=== PATIENT | male | born 1950 | race Caucasian/White ===

== ENCOUNTER 2020-03-02 14:50 | Inpatient (IN) | payer MEDICARE ==
[~2020-03-02] VITALS: Ht 190.5 cm; Wt 78.1 kg
--- NOTE | 2020-03-02 15:37 | EKG ---
[facility] [address] [place] [address] Test Date: 2020-03-02 Test Time: 14:53:24 Pat Name: FABIANO HELLER Department: Room: Gender: Law Researcher: [place] : 1950 Requested By: MARY MCKEON Order Number: [id number] Reading MD: Zenon Macdonald MD Measurements Intervals Osteen Rate: 121 P: 32 NM: 140 QRS: 18 QRSD: 84 T: 47 QT: 306 QTc: 437 Interpretive Statements SINUS TACHYCARDIA PAC'S Electronically Signed On 03-27-2020 11:34:12 CDT by Zenon Macdonald MD
[2020-03-02 15:41] LABS: BASO % 0 % (0-3); EOS % 0 % (0-3); HEMATOCRIT 31.3 % (39.0-53.0); HEMOGLOBIN 9.8 g/dL (13.0-17.5); LYMPH # 0.4 x10^3/uL (1.0-4.8); LYMPH % 4 % (24-48); MEAN CORPUSCULAR HEMOGLOBIN 22 pg (25-35); MEAN CORPUSCULAR HGB CONC 31 g/dL (31-37); MEAN CORPUSCULAR VOLUME 72 fL (79-100); MONO # 1.3 x10^3/uL (0.0-1.1); MONO % 11 % (0-9); NEUT # 10.4 x10^3/uL (1.8-7.7); NEUT % 85 % (31-73); PLATELET COUNT 391 x10^3/uL (140-400); RED BLOOD COUNT 4.37 x10^6/uL (4.30-5.70); RED CELL DISTRIBUTION WIDTH 30.9 % (11.5-14.5); WHITE BLOOD COUNT 12.1 x10^3/uL (4.0-11.0)
[2020-03-02 15:51] LABS: PROTHROMBIN TIME PATIENT 16.5 SEC (11.7-14.0)
[2020-03-02 15:52] LABS: CALCIUM 7.1 mg/dL (8.5-10.1); CREATININE 0.9 mg/dL (0.7-1.3); GFR 83.2; POTASSIUM 4.4 mmol/L (3.5-5.1)
[2020-03-02 15:57] LABS: ALBUMIN 1.5 g/dL (3.4-5.0); ALBUMIN/GLOBULIN RATIO 0.4 (1.0-1.7); MAGNESIUM 2.1 mg/dL (1.8-2.4); TOTAL BILIRUBIN 0.6 mg/dL (0.2-1.0); TOTAL PROTEIN 5.4 g/dL (6.4-8.2)
--- NOTE | 2020-03-02 16:02 | RAD ---
CHEST AP ONLY History: Reason: chest pain / Spl. Instructions: / History: Comparison: None. Findings: No consolidation or pleural effusion. Normal heart size. No pneumothorax. Prior granulomatous disease within the chest. Impression: 1. No acute cardiopulmonary process. Electronically signed by: Jose Garcia DO (03/02/2020 3:59 PM) [id number]
--- NOTE | 2020-03-02 16:42 | PHYS DOC ---
Past Medical History Past Medical History: Anemia, Other Additional Past Medical Histor: PROSTATE CANCER, LOW IRON Past Surgical History: No Surgical History Smoking Status: Former Smoker Alcohol Use: Rarely General Adult EDM: Chief Complaint: FATIGUE HPI: HPI: Patient is a 69 year old male who presents to the emergency department via EMS with complaints of fatigue and weakness that has been progressively worse over about the last month. He states he was at his primary care doctor's office for a checkup when the doctor suggested that he go to the emergency room by ambulance for possible blood transfusion. The patient denies any abdominal pain, chest pain, palpitations, fever, cough, shortness of breath, vision changes, dizziness, headache, numbness, tingling, or decreased sensation. He reports that his lower extremities have been swelling during the day for the last week. He denies any cardiac history. Patient states that for the last 3 weeks he has had nausea and vomiting. He reports that his emesis is brown- colored and he is not able to keep food down. He denies any blood in his stool. He currently denies any pain. Review of Systems: Review of Systems: Constitutional: Denies fever or chills. [] Eyes: Denies change in visual acuity. [] HENT: Denies nasal congestion or sore throat. [] Respiratory: Denies cough or shortness of breath. [] Cardiovascular: Denies chest pain; see HPI GI: See HPI : Denies dysuria, hematuria, or increased urinary frequency. [] Musculoskeletal: Denies back pain or joint pain. [] Integument: Denies rash. [] Neurologic: Denies headache, focal weakness or sensory changes. [] Lymphatic: Denies swollen glands. [] Psychiatric: Denies depression or anxiety. [] Heart Score: Risk Factors: Risk Factors: DM, Current or recent (<one month) smoker, HTN, HLP, family history of CAD, obesity. Risk Scores: Score 0 - 3: 2.5% MACE over next 6 weeks - Discharge Home Score 4 - 6: 20.3% MACE over next 6 weeks - Admit for Clinical Observation Score 7 - 10: 72.7% MACE over next 6 weeks - Early Invasive Strategies Allergies: Allergies: Allergies Coded Allergies Type Severity Reaction Last Updated Verified aspirin Allergy Severe "SWELLING" 03/02/20 Yes Physical Exam: PE: Constitutional: Well developed, well nourished, no acute distress, non-toxic appearance. [] HENT: Normocephalic, atraumatic, bilateral external ears normal, oropharynx dry, nose normal. [] Eyes: PERRLA, EOMI, conjunctiva normal, no discharge. [] Neck: Normal range of motion, no stridor. [] Cardiovascular:Heart rate regular rhythm, no murmur [] Lungs & Thorax: Bilateral breath sounds clear to auscultation,Respirations even and unlabored, no retractions, no respiratory distress [] Abdomen: Bowel sounds normal, soft, no tenderness, no rebound tenderness, no gua rding, no masses, no pulsatile masses. [] Skin: Warm, dry, no erythema, no rash, pale [] Back: No tenderness Extremities: BLE: No tenderness, no cyanosis, no clubbing, ROM intact, 2+ edema bilaterally, no erythema, no warmth, no drainage Neurologic: Alert and oriented X 3, normal motor function, normal sensory f unction, no focal deficits noted. [] Psychologic: Affect normal, judgement normal, mood normal. [] Current Patient Data: Labs: Laboratory Tests Test 03/02/20 15:07 White Blood Count 12.1 x10^3/uL (4.0-11.0) H Red Blood Count 4.37 x10^6/uL (4.30-5.70) Hemoglobin 9.8 g/dL (13.0-17.5) L Hematocrit 31.3 % (39.0-53.0) L Mean Corpuscular Volume 72 fL (79-100) L Mean Corpuscular Hemoglobin 22 pg (25-35) L Mean Corpuscular Hemoglobin Concent 31 g/dL (31-37) Red Cell Distribution Width 30.9 % (11.5-14.5) H Platelet Count 391 x10^3/uL (140-400) Neutrophils (%) (Auto) 85 % (31-73) H Lymphocytes (%) (Auto) 4 % (24-48) L Monocytes (%) (Auto) 11 % (0-9) H Eosinophils (%) (Auto) 0 % (0-3) Basophils (%) (Auto) 0 % (0-3) Neutrophils # (Auto) 10.4 x10^3/uL (1.8-7.7) H Lymphocytes # (Auto) 0.4 x10^3/uL (1.0-4.8) L Monocytes # (Auto) 1.3 x10^3/uL (0.0-1.1) H Eosinophils # (Auto) 0.0 x10^3/uL (0.0-0.7) Basophils # (Auto) 0.0 x10^3/uL (0.0-0.2) Platelet Estimate Pending Prothrombin Time 16.5 SEC (11.7-14.0) H Prothrombin Time INR 1.4 (0.8-1.1) H Activated Partial Thromboplast Time 36 SEC (24-38) Sodium Level 130 mmol/L (136-145) L Potassium Level 4.4 mmol/L (3.5-5.1) Chloride Level 99 mmol/L (98-107) Carbon Dioxide Level 21 mmol/L (21-32) Anion Gap 10 (6-14) Blood Urea Nitrogen 33 mg/dL (8-26) H Creatinine 0.9 mg/dL (0.7-1.3) Estimated GFR (Cockcroft-Gault) 83.2 BUN/Creatinine Ratio 37 (6-20) H Glucose Level 90 mg/dL (70-99) Calcium Level 7.1 mg/dL (8.5-10.1) L Magnesium Level 2.1 mg/dL (1.8-2.4) Total Bilirubin 0.6 mg/dL (0.2-1.0) Aspartate Amino Transferase (AST) 30 U/L (15-37) Alanine Aminotransferase (ALT) 25 U/L (16-63) Alkaline Phosphatase 157 U/L (46-116) H Troponin I Quantitative 0.017 ng/mL (0.000-0.055) LM-Fdd-J-Type Natriuretic Peptide 350 pg/mL (0-124) H Total Protein 5.4 g/dL (6.4-8.2) L Albumin 1.5 g/dL (3.4-5.0) L Albumin/Globulin Ratio 0.4 (1.0-1.7) L Lipase 90 U/L (73-393) Laboratory Tests 03/02/20 15:07 Laboratory Tests 03/02/20 15:07 Vital Signs: Vital Signs Date Time Temp Pulse Resp B/P (MAP) Pulse Ox O2 Delivery O2 Flow Rate FiO2 03/02/20 16:00 118 20 100/79 (86) 96 Room Air 03/02/20 14:53 98.0 98.0 EKG: EK-sinus tachycardia rate 121, no STEMI, read by Dr. De Anda [] Radiology/Procedures: Radiology/Procedures: PROCEDURE: CHEST AP ONLY CHEST AP ONLY History: Reason: chest pain / Spl. Instructions: / History: Comparison: None. Findings: No consolidation or pleural effusion. Normal heart size. No pneumothorax. Prior granulomatous disease within the chest. Impression: 1. No acute cardiopulmonary process.[] PROCEDURE: CT ABD PELV W/ IV CONTRST ONLY EXAM: CT Abdomen and Pelvis with IV contrast CLINICAL HISTORY: Nausea/vomiting. COMPARISON: none TECHNIQUE: Helical CT of the abdomen and pelvis was performed following the administration of IV contrast. Axial, coronal and sagittal reformatted images were generated. ---PQRS compliance statement - One or more of the following individualized dose reduction techniques were utilized for this study: 1. Automated exposure control 2. Adjustment of the mA and/or kV according to patient size 3. Use of iterative reconstruction technique--- FINDINGS: Lower chest: Trace right pleural effusion. Linear opacities right greater than left lower lobes likely scarring/atelectasis. Trace pericardial effusion. Abdomen and pelvis: Liver and biliary system: Diffuse hepatic hypoattenuation likely fatty liver. No definite liver lesion is convincingly seen. Gallbladder is contracted. Small gallstone is seen within the gallbladder. No biliary duct dilatation. Spleen: Unremarkable Pancreas: Unremarkable Adrenal glands: Unremarkable Kidneys: Symmetric nephrograms. No focal renal lesion. No hydronephrosis. No hydroureter. Lymph nodes/retroperitoneum: Prominent right upper quadrant lymph nodes are seen, for example a periportal lymph node measures 8 mm short axis. In addition prominent mesenteric lymph nodes are also seen including several right mesenteric lymph nodes. Vessels: Aorta is normal in caliber. Intermittent atherosclerotic calcifications are seen. Bowel/Peritoneal cavity: There is diffuse dilation of small bowel loops (measuring up to approximately 4.3 cm) to the level of a large fungating right ascending colon and cecal mass measuring approximately 10.3 x 9.2 x 10.5 cm (AP by transverse by craniocaudal). Of note, this mass abuts the duodenum as well as the inferior margin of the right hepatic lobe and anterior margin of the right kidney with effacement of the associated fat planes. In addition the appendix is distended measuring 1.3 cm with mild infiltration of the base. The majority of infiltration however is seen about the colonic mass described above. Trace free pelvic fluid. Abdominal wall: Unremarkable Bladder: Unremarkable Bones: Degenerative changes of the spine are seen. IMPRESSION: 1. Small bowel dilatation/obstruction to the level of a 10.5 cm colonic mass. Colonic mass abuts the right hepatic lobe inferior margin as well as the duodenum and anterior right kidney (extending through or deforming Gerota's fascia), suspicious for primary colon cancer. Prominent associated lymph nodes are seen, possibly metastatic. Otherwise no abdominal or pelvic lymphadenopathy. 2. The appendix is dilated with infiltration mostly at the base. Although this may secondary dilation from obstruction from the colonic mass, acute appendicitis cannot be excluded but is felt to be less likely. 3. Hepatic hypoattenuation likely fatty liver. 4. Small gallstone is seen within the gallbladder Course & Med Decision Making: Course & Med Decision Making Pertinent Labs and Imaging studies reviewed. (See chart for details) [id number]-spoke with Dr. Lam who is the admitting physician, and care was assumed following discussion of patient. Will admit patient as observation status for nausea, vomiting, fatigue, hypercalcemia, and anemia. We will give patient 40 mg of IV Protonix and order vitamin B12 and TSH levels per Dr. Lam Patient's vital signs stable with tachycardic heart rate. Patient remains afebrile, appears nontoxic, respirations even and unlabored. Patient will be admitted to the tele floor. Patient's case and plan of care also discussed with 1903- Per Dr. Ceron patient has a large colonic mass with a small bowel obstruction and a distended appendix will notify admitting physician Dr. Lam. 1919- notified of additional CT findings will notify Dr. Jernigan for general surgery and consult gastroenterology. 1929-I spoke with Dr. Gordon and advised of the abnormal CT findings. Patient will be n.p.o. according to admit orders, [facility] Dragon Disclaimer: Dragon Disclaimer: This electronic medical record was generated, in whole or in part, using a voice recognition dictation system. Departure Departure Impression: Primary Impression: Colonic mass Additional Impressions: Nausea & vomiting Qualified Codes: R11.2 - Nausea with vomiting, unspecified Fatigue Qualified Codes: R53.83 - Other fatigue Hypocalcemia Anemia Qualified Codes: D64.9 - Anemia, unspecified SBO (small bowel obstruction) Disposition: 09 ADMITTED INPATIENT Admitting Physician: TAMERA Hollingsworth) Condition: STABLE Justicifation of Admission Dx: Justifications for Admission: Justification of Admission Dx: Yes Comments: bowel obstruction MARY MCKEON SENIOR HYDROGEOLOGIST Mar 02, 2020 16:42
[2020-03-02] MEDS ORDERED: IV NORMAL SALINE 1000ML BAG 1,000 ML IV ONE ×2 (16:45→18:45)
[2020-03-02 17:03] LABS: % BANDS 17 % (0-9); % LYMPHS 2 % (24-48); % MONOS 3 % (0-10); % SEGS 78 % (35-66)
[2020-03-02 17:04] LABS: ANISOCYTOSIS MARKED; HYPOCHROMIA MOD; MICROCYTOSIS MOD; PLT ESTIMATE ADEQUATE (ADEQUATE)
[2020-03-02] MEDS ORDERED: CALCIUM GLUCONATE 1,000 MG/10 ML VIAL. IVP ONE (18:15)
[2020-03-02 18:18] LABS: BILIRUBIN,URINE LARGE (NEG); CLARITY,URINE CLEAR; NITRITE,URINE NEGATIVE (NEG); PH,URINE 5.5 (<5.0-8.0); PROTEIN,URINE NEGATIVE (NEG-TRACE)
[2020-03-02 18:22] LABS: COLOR,URINE YELLOW
[2020-03-02 18:25] LABS: HYALINE CASTS, URINE MODERATE /HPF
[2020-03-02 18:26] LABS: BACTERIA,URINE 0 /HPF (0-FEW); RBC,URINE 0 /HPF (0-2)
[2020-03-02] MEDS ORDERED: IOHEXOL 300 MG/ML 100ML VIAL. IV ONE (18:30)
[2020-03-02] MEDS ORDERED: PANTOPRAZOLE IV PUSH 40 MG VIAL. IVP ONE (18:45)
--- NOTE | 2020-03-02 19:08 | RAD ---
EXAM: CT Abdomen and Pelvis with IV contrast CLINICAL HISTORY: Nausea/vomiting. COMPARISON: none TECHNIQUE: Helical CT of the abdomen and pelvis was performed following the administration of IV contrast. Axial, coronal and sagittal reformatted images were generated. ---PQRS compliance statement - One or more of the following individualized dose reduction techniques were utilized for this study: 1. Automated exposure control 2. Adjustment of the mA and/or kV according to patient size 3. Use of iterative reconstruction technique--- FINDINGS: Lower chest: Trace right pleural effusion. Linear opacities right greater than left lower lobes likely scarring/atelectasis. Trace pericardial effusion. Abdomen and pelvis: Liver and biliary system: Diffuse hepatic hypoattenuation likely fatty liver. No definite liver lesion is convincingly seen. Gallbladder is contracted. Small gallstone is seen within the gallbladder. No biliary duct dilatation. Spleen: Unremarkable Pancreas: Unremarkable Adrenal glands: Unremarkable Kidneys: Symmetric nephrograms. No focal renal lesion. No hydronephrosis. No hydroureter. Lymph nodes/retroperitoneum: Prominent right upper quadrant lymph nodes are seen, for example a periportal lymph node measures 8 mm short axis. In addition prominent mesenteric lymph nodes are also seen including several right mesenteric lymph nodes. Vessels: Aorta is normal in caliber. Intermittent atherosclerotic calcifications are seen. Bowel/Peritoneal cavity: There is diffuse dilation of small bowel loops (measuring up to approximately 4.3 cm) to the level of a large fungating right ascending colon and cecal mass measuring approximately 10.3 x 9.2 x 10.5 cm (AP by transverse by craniocaudal). Of note, this mass abuts the duodenum as well as the inferior margin of the right hepatic lobe and anterior margin of the right kidney with effacement of the associated fat planes. In addition the appendix is distended measuring 1.3 cm with mild infiltration of the base. The majority of infiltration however is seen about the colonic mass described above. Trace free pelvic fluid. Abdominal wall: Unremarkable Bladder: Unremarkable Bones: Degenerative changes of the spine are seen. IMPRESSION: 1. Small bowel dilatation/obstruction to the level of a 10.5 cm colonic mass. Colonic mass abuts the right hepatic lobe inferior margin as well as the duodenum and anterior right kidney (extending through or deforming Gerota's fascia), suspicious for primary colon cancer. Prominent associated lymph nodes are seen, possibly metastatic. Otherwise no abdominal or pelvic lymphadenopathy. 2. The appendix is dilated with infiltration mostly at the base. Although this may secondary dilation from obstruction from the colonic mass, acute appendicitis cannot be excluded but is felt to be less likely. 3. Hepatic hypoattenuation likely fatty liver. 4. Small gallstone is seen within the gallbladder Findings discussed with MARY MCKEON at 03/02/2020 7:04 PM. FOR INTERNAL CODING PURPOSES RESULT CODE: (C) Electronically signed by: Derrick Ceron MD (03/02/2020 7:05 PM) NARCISO
[2020-03-02 20:47] VITALS: BP 128/85
--- NOTE | 2020-03-02 20:59 | PDOC1 ---
History and Physical Date of Admission Date of Admission DATE: 03/02/20 TIME: 20:31 Identification/Chief Complaint Chief Complaint vomiting, nausea, fatigue Source Source: Chart review, Patient History of Present Illness History of Present Illness 69 year old CM hx of prostate cancer s/p radiation, HTN now off meds who presents with vomiting fatigue diarrhea weight loss and decreased appetite for 1 month. patient had labs drawn as outpatient and called by PCP to go to the hospital for a blood transfusion. in ED patient found to have hb of 9.8. na 130. noted to be tachy wit hHR 110. patient lives with 100 year old mom. no family hx of any GI cancers Ct abdomen in ED revealed: 1. Small bowel dilatation/obstruction to the level of a 10.5 cm colonic mass. Colonic mass abuts the right hepatic lobe inferior margin as well as the duodenum and anterior right kidney (extending through or deforming Gerota's fascia), suspicious for primary colon cancer. Prominent associated lymph nodes are seen, possibly metastatic. Otherwise no abdominal or pelvic lymphadenopathy. 2. The appendix is dilated with infiltration mostly at the base. Although this may secondary dilation from obstruction from the colonic mass, acute appendicitis cannot be excluded but is felt to be less likely. 3. Hepatic hypoattenuation likely fatty liver. 4. Small gallstone is seen within the gallbladder hospitalist called for admission. Past Medical History Past Medical History HTN not on meds. prostate cancer Past Surgical History Past Surgical History denies Family History Family History no family hx of GI malignancy Social History Smoke: <1 pack per day ALCOHOL: occassional Drugs: None Current Problem List Problem List Problems Medical Problems: (1) Anemia Status: Acute (2) Colonic mass Status: Acute (3) Fatigue Status: Acute (4) Hypocalcemia Status: Acute (5) Nausea & vomiting Status: Acute (6) SBO (small bowel obstruction) Status: Acute Current Medications Current Medications Current Medications Sodium Chloride 1,000 ml @ 1,000 mls/hr 1X ONCE IV Last administered on 03/02/20at 17:05; Start 03/02/20 at 16:45; Stop 03/02/20 at 17:44; Status DC Calcium Gluconate (Calcium Gluconate) 1,000 mg 1X ONCE IVP Last administered on 03/02/20at 18:21; Start 03/02/20 at 18:15; Stop 6/26/20 at 18:18; Status DC Iohexol (Omnipaque 300 Mg/ml) 75 ml 1X ONCE IV Last administered on 03/02/20at 18:34; Start 03/02/20 at 18:30; Stop 03/02/20 at 18:31; Status DC Pantoprazole Sodium (PROTONIX VIAL for IV PUSH) 40 mg 1X ONCE IVP Last administered on 03/02/20at 18:41; Start 03/02/20 at 18:45; Stop 03/02/20 at 18:46; Status DC Sodium Chloride 1,000 ml @ 100 mls/hr 1X ONCE IV Last administered on 03/02/20at 19:04; Start 03/02/20 at 18:45; Stop 03/03/20 at 04:44 Allergies Allergies: Coded Allergies: aspirin (Verified Allergy, Severe, "SWELLING", 03/02/20) ROS Review of System CONSTITUTIONAL: No fever or chills EYES: No recent changes SKIN: No rash or itching CARDIOVASCULAR: No chest pain, syncope, palpitations, or edema RESPIRATORY: No SOB or cough GASTROINTESTINAL: No nausea, vomiting or abdominal pain NEUROLOGICAL: No headaches or weakness ENDOCRINE: No cold or heat intolerance GENITOURINARY: No urgency or frequency of urination MUSCULOSKELETAL: No back pain or joint pain LYMPHATICS: No enlarged lymph nodes PSYCHIATRIC: No anxiety or depression Physical Exam Physical Exam GENERAL: No apparent distress. Alert and oriented. HEENT: Head normocephalic, atraumatic. NECK: Supple LUNGS: Clear to auscultation. HEART: RRR, S1, S2 present, pulses intact ABDOMEN: Soft, positive bowel sounds. EXTREMITIES: No cyanosis or edema. NEUROLOGIC: Normal speech, normal tone PSYCHIATRIC: Normal affect, normal mood. SKIN: No ulceration. Vitals Vitals Vital Signs Date Time Temp Pulse Resp B/P (MAP) Pulse Ox O2 Delivery O2 Flow Rate FiO2 03/02/20 16:00 118 20 100/79 (86) 96 Room Air 03/02/20 14:53 98.0 98.0 Labs Labs Laboratory Tests Test 03/02/20 15:07 03/02/20 18:10 White Blood Count 12.1 x10^3/uL (4.0-11.0) Red Blood Count 4.37 x10^6/uL (4.30-5.70) Hemoglobin 9.8 g/dL (13.0-17.5) Hematocrit 31.3 % (39.0-53.0) Mean Corpuscular Volume 72 fL (79-100) Mean Corpuscular Hemoglobin 22 pg (25-35) Mean Corpuscular Hemoglobin Concent 31 g/dL (31-37) Red Cell Distribution Width 30.9 % (11.5-14.5) Platelet Count 391 x10^3/uL (140-400) Neutrophils (%) (Auto) 85 % (31-73) Lymphocytes (%) (Auto) 4 % (24-48) Monocytes (%) (Auto) 11 % (0-9) Eosinophils (%) (Auto) 0 % (0-3) Basophils (%) (Auto) 0 % (0-3) Neutrophils # (Auto) 10.4 x10^3/uL (1.8-7.7) Lymphocytes # (Auto) 0.4 x10^3/uL (1.0-4.8) Monocytes # (Auto) 1.3 x10^3/uL (0.0-1.1) Eosinophils # (Auto) 0.0 x10^3/uL (0.0-0.7) Basophils # (Auto) 0.0 x10^3/uL (0.0-0.2) Segmented Neutrophils % 78 % (35-66) Band Neutrophils % 17 % (0-9) Lymphocytes % 2 % (24-48) Monocytes % 3 % (0-10) Platelet Estimate Adequate (ADEQUATE) Hypochromasia Mod Anisocytosis Marked Microcytosis Mod Macrocytosis Slight Prothrombin Time 16.5 SEC (11.7-14.0) Prothromb Time International Ratio 1.4 (0.8-1.1) Activated Partial Thromboplast Time 36 SEC (24-38) Sodium Level 130 mmol/L (136-145) Potassium Level 4.4 mmol/L (3.5-5.1) Chloride Level 99 mmol/L (98-107) Carbon Dioxide Level 21 mmol/L (21-32) Anion Gap 10 (6-14) Blood Urea Nitrogen 33 mg/dL (8-26) Creatinine 0.9 mg/dL (0.7-1.3) Estimated GFR (Cockcroft-Gault) 83.2 BUN/Creatinine Ratio 37 (6-20) Glucose Level 90 mg/dL (70-99) Calcium Level 7.1 mg/dL (8.5-10.1) Magnesium Level 2.1 mg/dL (1.8-2.4) Total Bilirubin 0.6 mg/dL (0.2-1.0) Aspartate Amino Transf (AST/SGOT) 30 U/L (15-37) Alanine Aminotransferase (ALT/SGPT) 25 U/L (16-63) Alkaline Phosphatase 157 U/L (46-116) Troponin I Quantitative 0.017 ng/mL (0.000-0.055) SA-Jzg-E-Type Natriuretic Peptide 350 pg/mL (0-124) Total Protein 5.4 g/dL (6.4-8.2) Albumin 1.5 g/dL (3.4-5.0) Albumin/Globulin Ratio 0.4 (1.0-1.7) Lipase 90 U/L (73-393) Vitamin B12 Level 837 pg/mL (247-911) Thyroid Stimulating Hormone (TSH) 2.217 uIU/mL (0.358-3.74) Urine Collection Type Unknown Urine Color Yellow Urine Clarity Clear Urine pH 5.5 (<5.0-8.0) Urine Specific [place] >=1.030 (1.000-1.030) Urine Protein Negative mg/dL (NEG-TRACE) Urine Glucose (UA) Negative mg/dL (NEG) Urine Ketones (Stick) 40 mg/dL (NEG) Urine Blood Negative (NEG) Urine Nitrite Negative (NEG) Urine Bilirubin Large (NEG) Urine Urobilinogen Dipstick 2.0 mg/dL (0.2 mg/dL) Urine Leukocyte Esterase Small (NEG) Urine RBC 0 /HPF (0-2) Urine WBC 11-20 /HPF (0-4) Urine Bacteria 0 /HPF (0-FEW) Urine Hyaline Casts Moderate /HPF Urine Mucus Marked /LPF Laboratory Tests Test 03/02/20 15:07 03/02/20 18:10 White Blood Count 12.1 x10^3/uL (4.0-11.0) Red Blood Count 4.37 x10^6/uL (4.30-5.70) Hemoglobin 9.8 g/dL (13.0-17.5) Hematocrit 31.3 % (39.0-53.0) Mean Corpuscular Volume 72 fL (79-100) Mean Corpuscular Hemoglobin 22 pg (25-35) Mean Corpuscular Hemoglobin Concent 31 g/dL (31-37) Red Cell Distribution Width 30.9 % (11.5-14.5) Platelet Count 391 x10^3/uL (140-400) Neutrophils (%) (Auto) 85 % (31-73) Lymphocytes (%) (Auto) 4 % (24-48) Monocytes (%) (Auto) 11 % (0-9) Eosinophils (%) (Auto) 0 % (0-3) Basophils (%) (Auto) 0 % (0-3) Neutrophils # (Auto) 10.4 x10^3/uL (1.8-7.7) Lymphocytes # (Auto) 0.4 x10^3/uL (1.0-4.8) Monocytes # (Auto) 1.3 x10^3/uL (0.0-1.1) Eosinophils # (Auto) 0.0 x10^3/uL (0.0-0.7) Basophils # (Auto) 0.0 x10^3/uL (0.0-0.2) Segmented Neutrophils % 78 % (35-66) Band Neutrophils % 17 % (0-9) Lymphocytes % 2 % (24-48) Monocytes % 3 % (0-10) Platelet Estimate Adequate (ADEQUATE) Hypochromasia Mod Anisocytosis Marked Microcytosis Mod Macrocytosis Slight Prothrombin Time 16.5 SEC (11.7-14.0) Prothromb Time International Ratio 1.4 (0.8-1.1) Activated Partial Thromboplast Time 36 SEC (24-38) Sodium Level 130 mmol/L (136-145) Potassium Level 4.4 mmol/L (3.5-5.1) Chloride Level 99 mmol/L (98-107) Carbon Dioxide Level 21 mmol/L (21-32) Anion Gap 10 (6-14) Blood Urea Nitrogen 33 mg/dL (8-26) Creatinine 0.9 mg/dL (0.7-1.3) Estimated GFR (Cockcroft-Gault) 83.2 BUN/Creatinine Ratio 37 (6-20) Glucose Level 90 mg/dL (70-99) Calcium Level 7.1 mg/dL (8.5-10.1) Magnesium Level 2.1 mg/dL (1.8-2.4) Total Bilirubin 0.6 mg/dL (0.2-1.0) Aspartate Amino Transf (AST/SGOT) 30 U/L (15-37) Alanine Aminotransferase (ALT/SGPT) 25 U/L (16-63) Alkaline Phosphatase 157 U/L (46-116) Troponin I Quantitative 0.017 ng/mL (0.000-0.055) NV-Gln-B-Type Natriuretic Peptide 350 pg/mL (0-124) Total Protein 5.4 g/dL (6.4-8.2) Albumin 1.5 g/dL (3.4-5.0) Albumin/Globulin Ratio 0.4 (1.0-1.7) Lipase 90 U/L (73-393) Vitamin B12 Level 837 pg/mL (247-911) Thyroid Stimulating Hormone (TSH) 2.217 uIU/mL (0.358-3.74) Urine Collection Type Unknown Urine Color Yellow Urine Clarity Clear Urine pH 5.5 (<5.0-8.0) Urine Specific West >=1.030 (1.000-1.030) Urine Protein Negative mg/dL (NEG-TRACE) Urine Glucose (UA) Negative mg/dL (NEG) Urine Ketones (Stick) 40 mg/dL (NEG) Urine Blood Negative (NEG) Urine Nitrite Negative (NEG) Urine Bilirubin Large (NEG) Urine Urobilinogen Dipstick 2.0 mg/dL (0.2 mg/dL) Urine Leukocyte Esterase Small (NEG) Urine RBC 0 /HPF (0-2) Urine WBC 11-20 /HPF (0-4) Urine Bacteria 0 /HPF (0-FEW) Urine Hyaline Casts Moderate /HPF Urine Mucus Marked /LPF VTE Prophylaxis Ordered VTE Prophylaxis Devices: Yes VTE Pharmacological Prophylaxi: Yes Assessment/Plan Assessment/Plan ASSESSMENT Nausea Vomiting Fatigue Weight Loss due Small bowel dilatation/obstruction suspicious for primary colon cancer. Dialated Appendix, ? Acute Appendicitis fatty liver dz Gallstones Microcytic Anemia Alkaline Phosphatemia Hyponatremia Mild Leukocytosis Tachycardia PLAN admit to medical floor NPO, IVF Gen Sx and GI consult CT chest with contrast ordered by ER check iron studies B12, TSH normal nutrition consult need to verify home meds FULL CODE lovenox ppx Justicifation of Admission Dx: Justifications for Admission: Justification of Admission Dx: Yes MELLISA BONNER MD Mar 02, 2020 20:59
[2020-03-02] MEDS ORDERED: ENOXAPARIN 40 MG/0.4 ML SYRINGE. SQ SCH (21:00)
[2020-03-02] MEDS ORDERED: TAMS0.4C97 PO (21:30)
[2020-03-02 23:27] VITALS: BP 122/78
[2020-03-02] MEDS: TAMSULOSIN 0.4 MG CAP.ER.24H. PO SCH (23:48)
[2020-03-03] VITALS (8 sets, daily range): BP systolic 105–126; BP diastolic 70–89
--- NOTE | 2020-03-03 08:05 | PDOC ---
PROGRESS NOTES Chief Complaint Chief Complaint Nausea Vomiting Fatigue Weight Loss Small bowel dilatation/obstruction suspicious for primary colon cancer 10.5cm mass with surrounding lymph nodes concerning for metastatic disease Dialated Appendix fatty liver dz Gallstones Microcytic Anemia Alkaline Phosphatemia Hyponatremia Mild Leukocytosis Tachycardia H/o prostate cancer in remission Sever protein calorie malnutrition LE edema - BNP of 350, no cardiac history and no symptoms of CHF. This is unlikely to be cardiac related at all. Likely likely lymphatic obstruction due to abdominal mass. Hyponatremia - likely due to poor PO intake FEN - NPO History of Present Illness History of Present Illness 69 year old CM hx of prostate cancer s/p radiation, HTN, prediabetes now off meds who presents with vomiting fatigue diarrhea weight loss and decreased appetite for 1 month. He went to see his PCP because over the past week he had sudden onset lower extremity edema, patient had labs drawn as outpatient and called by PCP to go to the hospital for a blood transfusion and treatment for CHF. No history of CHF. On ROS he just notes his bones feel heavy. He also notes over the past 2 months sometimes he will choke on food and vomited up. His last bowel movement was 2 days ago and it was diarrhea. He has not been able to eat very well. He just feels tired. He stopped smoking over 25 years ago and he only did smoke cigars at that time. With regard to his prostate cancer he states that he had 43 radiation treatments and had a PET scan at the end of 2019 and was told he is in remission. He has never had a colonoscopy. in ED patient found to have hb of 9.8. na 130. noted to be tachy with HR 110. Patient lives with 101 year old mom. His mother has history of stage III colon cancer diagnosed at age 76. His brother has history of prostate cancer, father of lung cancer. Ct abdomen in ED revealed: 1. Small bowel dilatation/obstruction to the level of a 10.5 cm colonic mass. Colonic mass abuts the right hepatic lobe inferior margin as well as the duodenum and anterior right kidney (extending through or deforming Gerota's fascia), suspicious for primary colon cancer. Prominent associated lymph nodes are seen, possibly metastatic. Otherwise no abdominal or pelvic lymphadenopathy. 2. The appendix is dilated with infiltration mostly at the base. Although this may secondary dilation from obstruction from the colonic mass, acute appendicitis cannot be excluded but is felt to be less likely. 3. Hepatic hypoattenuation likely fatty liver. 4. Small gallstone is seen within the gallbladder He has some nausea, he is worried about his mother going into hospice. No shortness of breath, no orthopnea, no PND. Does have 3+ pitting edema. He has multiple questions about having surgery and having port placement. I advised him he needs a diagnosis and surgeries recommended Vitals Vitals Vital Signs Date Time Temp Pulse Resp B/P (MAP) Pulse Ox O2 Delivery O2 Flow Rate FiO2 03/03/20 03:38 97.3 80 19 111/70 (84) 98 Room Air 97.3 Physical Exam General: Alert, Oriented X3, Cooperative Heart: Regular rate, Normal S1, Normal S2 Lungs: Clear Abdomen: Normal bowel sounds, Soft Extremities: No clubbing, No cyanosis Skin: No rashes, No breakdown Labs LABS Laboratory Tests Test 03/02/20 15:07 03/02/20 18:10 White Blood Count 12.1 x10^3/uL (4.0-11.0) Red Blood Count 4.37 x10^6/uL (4.30-5.70) Hemoglobin 9.8 g/dL (13.0-17.5) Hematocrit 31.3 % (39.0-53.0) Mean Corpuscular Volume 72 fL (79-100) Mean Corpuscular Hemoglobin 22 pg (25-35) Mean Corpuscular Hemoglobin Concent 31 g/dL (31-37) Red Cell Distribution Width 30.9 % (11.5-14.5) Platelet Count 391 x10^3/uL (140-400) Neutrophils (%) (Auto) 85 % (31-73) Lymphocytes (%) (Auto) 4 % (24-48) Monocytes (%) (Auto) 11 % (0-9) Eosinophils (%) (Auto) 0 % (0-3) Basophils (%) (Auto) 0 % (0-3) Neutrophils # (Auto) 10.4 x10^3/uL (1.8-7.7) Lymphocytes # (Auto) 0.4 x10^3/uL (1.0-4.8) Monocytes # (Auto) 1.3 x10^3/uL (0.0-1.1) Eosinophils # (Auto) 0.0 x10^3/uL (0.0-0.7) Basophils # (Auto) 0.0 x10^3/uL (0.0-0.2) Segmented Neutrophils % 78 % (35-66) Band Neutrophils % 17 % (0-9) Lymphocytes % 2 % (24-48) Monocytes % 3 % (0-10) Platelet Estimate Adequate (ADEQUATE) Hypochromasia Mod Anisocytosis Marked Microcytosis Mod Macrocytosis Slight Prothrombin Time 16.5 SEC (11.7-14.0) Prothromb Time International Ratio 1.4 (0.8-1.1) Activated Partial Thromboplast Time 36 SEC (24-38) Sodium Level 130 mmol/L (136-145) Potassium Level 4.4 mmol/L (3.5-5.1) Chloride Level 99 mmol/L (98-107) Carbon Dioxide Level 21 mmol/L (21-32) Anion Gap 10 (6-14) Blood Urea Nitrogen 33 mg/dL (8-26) Creatinine 0.9 mg/dL (0.7-1.3) Estimated GFR (Cockcroft-Gault) 83.2 BUN/Creatinine Ratio 37 (6-20) Glucose Level 90 mg/dL (70-99) Calcium Level 7.1 mg/dL (8.5-10.1) Magnesium Level 2.1 mg/dL (1.8-2.4) Iron Level 36 ug/dL (65-175) Total Iron Binding Capacity 125 ug/dL (250-450) Iron Saturation 29 % (15-34) Total Bilirubin 0.6 mg/dL (0.2-1.0) Aspartate Amino Transf (AST/SGOT) 30 U/L (15-37) Alanine Aminotransferase (ALT/SGPT) 25 U/L (16-63) Alkaline Phosphatase 157 U/L (46-116) Troponin I Quantitative 0.017 ng/mL (0.000-0.055) IO-Rmq-G-Type Natriuretic Peptide 350 pg/mL (0-124) Total Protein 5.4 g/dL (6.4-8.2) Albumin 1.5 g/dL (3.4-5.0) Albumin/Globulin Ratio 0.4 (1.0-1.7) Lipase 90 U/L (73-393) Vitamin B12 Level 837 pg/mL (247-911) Thyroid Stimulating Hormone (TSH) 2.217 uIU/mL (0.358-3.74) Urine Collection Type Unknown Urine Color Yellow Urine Clarity Clear Urine pH 5.5 (<5.0-8.0) Urine Specific [place] >=1.030 (1.000-1.030) Urine Protein Negative mg/dL (NEG-TRACE) Urine Glucose (UA) Negative mg/dL (NEG) Urine Ketones (Stick) 40 mg/dL (NEG) Urine Blood Negative (NEG) Urine Nitrite Negative (NEG) Urine Bilirubin Large (NEG) Urine Urobilinogen Dipstick 2.0 mg/dL (0.2 mg/dL) Urine Leukocyte Esterase Small (NEG) Urine RBC 0 /HPF (0-2) Urine WBC 11-20 /HPF (0-4) Urine Bacteria 0 /HPF (0-FEW) Urine Hyaline Casts Moderate /HPF Urine Mucus Marked /LPF Assessment and Plan Assessmemt and Plan Problems Medical Problems: (1) Anemia Status: Acute (2) Colonic mass Status: Acute (3) Fatigue Status: Acute (4) Hypocalcemia Status: Acute (5) Nausea & vomiting Status: Acute (6) SBO (small bowel obstruction) Status: Acute Comment Review of Relevant I have reviewed the following items radhames (where applicable) has been applied. Labs Laboratory Tests Test 03/02/20 15:07 03/02/20 18:10 White Blood Count 12.1 x10^3/uL (4.0-11.0) Red Blood Count 4.37 x10^6/uL (4.30-5.70) Hemoglobin 9.8 g/dL (13.0-17.5) Hematocrit 31.3 % (39.0-53.0) Mean Corpuscular Volume 72 fL (79-100) Mean Corpuscular Hemoglobin 22 pg (25-35) Mean Corpuscular Hemoglobin Concent 31 g/dL (31-37) Red Cell Distribution Width 30.9 % (11.5-14.5) Platelet Count 391 x10^3/uL (140-400) Neutrophils (%) (Auto) 85 % (31-73) Lymphocytes (%) (Auto) 4 % (24-48) Monocytes (%) (Auto) 11 % (0-9) Eosinophils (%) (Auto) 0 % (0-3) Basophils (%) (Auto) 0 % (0-3) Neutrophils # (Auto) 10.4 x10^3/uL (1.8-7.7) Lymphocytes # (Auto) 0.4 x10^3/uL (1.0-4.8) Monocytes # (Auto) 1.3 x10^3/uL (0.0-1.1) Eosinophils # (Auto) 0.0 x10^3/uL (0.0-0.7) Basophils # (Auto) 0.0 x10^3/uL (0.0-0.2) Segmented Neutrophils % 78 % (35-66) Band Neutrophils % 17 % (0-9) Lymphocytes % 2 % (24-48) Monocytes % 3 % (0-10) Platelet Estimate Adequate (ADEQUATE) Hypochromasia Mod Anisocytosis Marked Microcytosis Mod Macrocytosis Slight Prothrombin Time 16.5 SEC (11.7-14.0) Prothromb Time International Ratio 1.4 (0.8-1.1) Activated Partial Thromboplast Time 36 SEC (24-38) Sodium Level 130 mmol/L (136-145) Potassium Level 4.4 mmol/L (3.5-5.1) Chloride Level 99 mmol/L (98-107) Carbon Dioxide Level 21 mmol/L (21-32) Anion Gap 10 (6-14) Blood Urea Nitrogen 33 mg/dL (8-26) Creatinine 0.9 mg/dL (0.7-1.3) Estimated GFR (Cockcroft-Gault) 83.2 BUN/Creatinine Ratio 37 (6-20) Glucose Level 90 mg/dL (70-99) Calcium Level 7.1 mg/dL (8.5-10.1) Magnesium Level 2.1 mg/dL (1.8-2.4) Iron Level 36 ug/dL (65-175) Total Iron Binding Capacity 125 ug/dL (250-450) Iron Saturation 29 % (15-34) Total Bilirubin 0.6 mg/dL (0.2-1.0) Aspartate Amino Transf (AST/SGOT) 30 U/L (15-37) Alanine Aminotransferase (ALT/SGPT) 25 U/L (16-63) Alkaline Phosphatase 157 U/L (46-116) Troponin I Quantitative 0.017 ng/mL (0.000-0.055) WT-Pjg-I-Type Natriuretic Peptide 350 pg/mL (0-124) Total Protein 5.4 g/dL (6.4-8.2) Albumin 1.5 g/dL (3.4-5.0) Albumin/Globulin Ratio 0.4 (1.0-1.7) Lipase 90 U/L (73-393) Vitamin B12 Level 837 pg/mL (247-911) Thyroid Stimulating Hormone (TSH) 2.217 uIU/mL (0.358-3.74) Urine Collection Type Unknown Urine Color Yellow Urine Clarity Clear Urine pH 5.5 (<5.0-8.0) Urine Specific [place] >=1.030 (1.000-1.030) Urine Protein Negative mg/dL (NEG-TRACE) Urine Glucose (UA) Negative mg/dL (NEG) Urine Ketones (Stick) 40 mg/dL (NEG) Urine Blood Negative (NEG) Urine Nitrite Negative (NEG) Urine Bilirubin Large (NEG) Urine Urobilinogen Dipstick 2.0 mg/dL (0.2 mg/dL) Urine Leukocyte Esterase Small (NEG) Urine RBC 0 /HPF (0-2) Urine WBC 11-20 /HPF (0-4) Urine Bacteria 0 /HPF (0-FEW) Urine Hyaline Casts Moderate /HPF Urine Mucus Marked /LPF Laboratory Tests Test 03/02/20 15:07 03/02/20 18:10 White Blood Count 12.1 x10^3/uL (4.0-11.0) Red Blood Count 4.37 x10^6/uL (4.30-5.70) Hemoglobin 9.8 g/dL (13.0-17.5) Hematocrit 31.3 % (39.0-53.0) Mean Corpuscular Volume 72 fL (79-100) Mean Corpuscular Hemoglobin 22 pg (25-35) Mean Corpuscular Hemoglobin Concent 31 g/dL (31-37) Red Cell Distribution Width 30.9 % (11.5-14.5) Platelet Count 391 x10^3/uL (140-400) Neutrophils (%) (Auto) 85 % (31-73) Lymphocytes (%) (Auto) 4 % (24-48) Monocytes (%) (Auto) 11 % (0-9) Eosinophils (%) (Auto) 0 % (0-3) Basophils (%) (Auto) 0 % (0-3) Neutrophils # (Auto) 10.4 x10^3/uL (1.8-7.7) Lymphocytes # (Auto) 0.4 x10^3/uL (1.0-4.8) Monocytes # (Auto) 1.3 x10^3/uL (0.0-1.1) Eosinophils # (Auto) 0.0 x10^3/uL (0.0-0.7) Basophils # (Auto) 0.0 x10^3/uL (0.0-0.2) Segmented Neutrophils % 78 % (35-66) Band Neutrophils % 17 % (0-9) Lymphocytes % 2 % (24-48) Monocytes % 3 % (0-10) Platelet Estimate Adequate (ADEQUATE) Hypochromasia Mod Anisocytosis Marked Microcytosis Mod Macrocytosis Slight Prothrombin Time 16.5 SEC (11.7-14.0) Prothromb Time International Ratio 1.4 (0.8-1.1) Activated Partial Thromboplast Time 36 SEC (24-38) Sodium Level 130 mmol/L (136-145) Potassium Level 4.4 mmol/L (3.5-5.1) Chloride Level 99 mmol/L (98-107) Carbon Dioxide Level 21 mmol/L (21-32) Anion Gap 10 (6-14) Blood Urea Nitrogen 33 mg/dL (8-26) Creatinine 0.9 mg/dL (0.7-1.3) Estimated GFR (Cockcroft-Gault) 83.2 BUN/Creatinine Ratio 37 (6-20) Glucose Level 90 mg/dL (70-99) Calcium Level 7.1 mg/dL (8.5-10.1) Magnesium Level 2.1 mg/dL (1.8-2.4) Iron Level 36 ug/dL (65-175) Total Iron Binding Capacity 125 ug/dL (250-450) Iron Saturation 29 % (15-34) Total Bilirubin 0.6 mg/dL (0.2-1.0) Aspartate Amino Transf (AST/SGOT) 30 U/L (15-37) Alanine Aminotransferase (ALT/SGPT) 25 U/L (16-63) Alkaline Phosphatase 157 U/L (46-116) Troponin I Quantitative 0.017 ng/mL (0.000-0.055) NI-Zqw-R-Type Natriuretic Peptide 350 pg/mL (0-124) Total Protein 5.4 g/dL (6.4-8.2) Albumin 1.5 g/dL (3.4-5.0) Albumin/Globulin Ratio 0.4 (1.0-1.7) Lipase 90 U/L (73-393) Vitamin B12 Level 837 pg/mL (247-911) Thyroid Stimulating Hormone (TSH) 2.217 uIU/mL (0.358-3.74) Urine Collection Type Unknown Urine Color Yellow Urine Clarity Clear Urine pH 5.5 (<5.0-8.0) Urine Specific [place] >=1.030 (1.000-1.030) Urine Protein Negative mg/dL (NEG-TRACE) Urine Glucose (UA) Negative mg/dL (NEG) Urine Ketones (Stick) 40 mg/dL (NEG) Urine Blood Negative (NEG) Urine Nitrite Negative (NEG) Urine Bilirubin Large (NEG) Urine Urobilinogen Dipstick 2.0 mg/dL (0.2 mg/dL) Urine Leukocyte Esterase Small (NEG) Urine RBC 0 /HPF (0-2) Urine WBC 11-20 /HPF (0-4) Urine Bacteria 0 /HPF (0-FEW) Urine Hyaline Casts Moderate /HPF Urine Mucus Marked /LPF Medications Current Medications Sodium Chloride 1,000 ml @ 1,000 mls/hr 1X ONCE IV Last administered on 03/02/20at 17:05; Start 03/02/20 at 16:45; Stop 03/02/20 at 17:44; Status DC Calcium Gluconate (Calcium Gluconate) 1,000 mg 1X ONCE IVP Last administered on 03/02/20at 18:21; Start 03/02/20 at 18:15; Stop 03/02/20 at 18:18; Status DC Iohexol (Omnipaque 300 Mg/ml) 75 ml 1X ONCE IV Last administered on 03/02/20at 18:34; Start 03/02/20 at 18:30; Stop 03/02/20 at 18:31; Status DC Pantoprazole Sodium (PROTONIX VIAL for IV PUSH) 40 mg 1X ONCE IVP Last administered on 03/02/20at 18:41; Start 03/02/20 at 18:45; Stop 03/02/20 at 18:46; Status DC Sodium Chloride 1,000 ml @ 100 mls/hr 1X ONCE IV Last administered on 03/02/20at 19:04; Start 03/02/20 at 18:45; Stop 03/03/20 at 04:44; Status DC Enoxaparin Sodium (Lovenox Per Pharmacy Prophylaxis Dosing) 1 each PRN DAILY PRN MC SEE COMMENTS; Start 03/02/20 at 20:30 Enoxaparin Sodium (Lovenox 40mg Syringe) 40 mg Q24H SQ Last administered on 03/02/20at 23:48; Start 03/02/20 at 21:00 Tamsulosin HCl (Flomax) 0.4 mg HS PO Last administered on 03/02/20at 23:48; Start 03/02/20 at 23:45 Active Scripts Active Reported Flomax (Tamsulosin Hcl) 0.4 Mg Cap.er.24h 1 Cap PO QHS Vitals/I & O Vital Sign - Last 24 Hours 03/02/20 03/02/20 03/02/20 03/02/20 14:53 15:15 15:45 16:00 Temp 98.0 98.0 Pulse 120 122 122 118 Resp 20 20 20 20 B/P (MAP) 121/80 (94) 108/80 (89) 100/79 (86) 100/79 (86) Pulse Ox 97 98 96 96 O2 Delivery Room Air Room Air Room Air Room Air 03/02/20 03/02/20 03/02/20 03/02/20 19:13 19:43 20:13 20:47 Temp 97.4 97.4 Pulse 106 108 104 71 Resp 15 15 17 20 B/P (MAP) 114/78 (90) 128/86 (100) 124/81 (95) 128/85 (99) Pulse Ox 97 97 97 98 O2 Delivery Room Air Room Air Room Air Room Air 03/02/20 03/03/20 23:27 03:38 Temp 97.6 97.3 97.6 97.3 Pulse 87 80 Resp 19 19 B/P (MAP) 122/78 (93) 111/70 (84) Pulse Ox 96 98 O2 Delivery Room Air Room Air Intake and Output 03/02/20 03/02/20 03/03/20 15:00 23:00 07:00 Intake Total 1000 ml Balance 1000 ml RAIN CRYSTAL MD Mar 03, 2020 08:05
--- NOTE | 2020-03-03 08:53 | PDOC2 ---
ISAAC LUEVANO ASSOCIATE DIRECTOR REGULATORY AFFAIRS 03/03/20 0853: CONSULT Date of Consult Date of Consult DATE: 03/03/20 TIME: 08:44 Reason for Consult Reason for Consult: obstructing colon mass Referring Physician Referring Physician: ER Identification/Chief Complaint Chief Complaint weakness, vomiting Source Source: Chart review, Patient History of Present Illness Reason for Visit: Reports 1 month of inability to take PO--has been worsening, abdominal bloating, diarrhea about 3 weeks ago and then minimal bowel function since. Increasing weakness, fatigue. Started developing fluid retention to lower extremities Past Medical History Cardiovascular: HTN Renal/: Prostate Ca. Past Surgical History Past Surgical History: No pertinent history Family History Family History: Other (noncontributory to current illness ) Social History Quit ALCOHOL: occassional Drugs: None Lives: with Family Current Problem List Problem List Problems Medical Problems: (1) Anemia Status: Acute (2) Colonic mass Status: Acute (3) Fatigue Status: Acute (4) Hypocalcemia Status: Acute (5) Nausea & vomiting Status: Acute (6) SBO (small bowel obstruction) Status: Acute Current Medications Current Medications Current Medications Sodium Chloride 1,000 ml @ 1,000 mls/hr 1X ONCE IV Last administered on 03/02/20at 17:05; Start 03/02/20 at 16:45; Stop 03/02/20 at 17:44; Status DC Calcium Gluconate (Calcium Gluconate) 1,000 mg 1X ONCE IVP Last administered on 03/02/20at 18:21; Start 03/02/20 at 18:15; Stop 03/02/20 at 18:18; Status DC Iohexol (Omnipaque 300 Mg/ml) 75 ml 1X ONCE IV Last administered on 03/02/20at 18:34; Start 03/02/20 at 18:30; Stop 03/02/20 at 18:31; Status DC Pantoprazole Sodium (PROTONIX VIAL for IV PUSH) 40 mg 1X ONCE IVP Last administered on 03/02/20at 18:41; Start 03/02/20 at 18:45; Stop 03/02/20 at 18:46; Status DC Sodium Chloride 1,000 ml @ 100 mls/hr 1X ONCE IV Last administered on 03/02/20at 19:04; Start 03/02/20 at 18:45; Stop 03/03/20 at 04:44; Status DC Enoxaparin Sodium (Lovenox Per Pharmacy Prophylaxis Dosing) 1 each PRN DAILY PRN MC SEE COMMENTS; Start 03/02/20 at 20:30 Enoxaparin Sodium (Lovenox 40mg Syringe) 40 mg Q24H SQ Last administered on 03/02/20at 23:48; Start 03/02/20 at 21:00 Tamsulosin HCl (Flomax) 0.4 mg HS PO Last administered on 03/02/20at 23:48; Start 03/02/20 at 23:45 Active Scripts Active Reported Flomax (Tamsulosin Hcl) 0.4 Mg Cap.er.24h 1 Cap PO QHS Allergies Allergies: Coded Allergies: aspirin (Verified Allergy, Severe, "SWELLING", 03/02/20) ROS General: YES: Fatigue, Appetite (loss); No: Chills PSYCHOLOGICAL ROS: No: Anxiety, Depression Eyes: No Blurry vision, No Double vision HEENT: No: Heacaches, Sore Throat Hematological and Lymphatic: No: Bleeding Problems, Blood Clots Respiratory: No: Cough, Shortness of breath Cardiovascular: No Chest Pain, No Palpitations Gastrointestinal: Yes Other (see hpi) Genitourinary: No Dysuria, No Hematuria Musculoskeletal: Yes Joint Swelling, Yes Muscular Weakness Neurological: No Impaired Coord/balance, No Numbness/Tingling Skin: No Pruritus, No Rash Physical Exam General: Alert, Oriented X3, Cooperative HEENT: Atraumatic, PERRLA Lungs: Clear to auscultation, Normal air movement Heart: Regular rate, Normal S1, Normal S2 Abdomen: Soft, No tenderness, Other (mildly distended ) Extremities: No clubbing, Other (2+ LE edema ) Neuro: Normal speech, Sensation intact Psych/Mental Status: Mental status NL, Mood NL Vitals VITALS Vital Signs Date Time Temp Pulse Resp B/P (MAP) Pulse Ox O2 Delivery O2 Flow Rate FiO2 03/03/20 03:38 97.3 80 19 111/70 (84) 98 Room Air 97.3 Labs Labs Laboratory Tests Test 03/02/20 15:07 03/02/20 18:10 White Blood Count 12.1 x10^3/uL (4.0-11.0) Red Blood Count 4.37 x10^6/uL (4.30-5.70) Hemoglobin 9.8 g/dL (13.0-17.5) Hematocrit 31.3 % (39.0-53.0) Mean Corpuscular Volume 72 fL (79-100) Mean Corpuscular Hemoglobin 22 pg (25-35) Mean Corpuscular Hemoglobin Concent 31 g/dL (31-37) Red Cell Distribution Width 30.9 % (11.5-14.5) Platelet Count 391 x10^3/uL (140-400) Neutrophils (%) (Auto) 85 % (31-73) Lymphocytes (%) (Auto) 4 % (24-48) Monocytes (%) (Auto) 11 % (0-9) Eosinophils (%) (Auto) 0 % (0-3) Basophils (%) (Auto) 0 % (0-3) Neutrophils # (Auto) 10.4 x10^3/uL (1.8-7.7) Lymphocytes # (Auto) 0.4 x10^3/uL (1.0-4.8) Monocytes # (Auto) 1.3 x10^3/uL (0.0-1.1) Eosinophils # (Auto) 0.0 x10^3/uL (0.0-0.7) Basophils # (Auto) 0.0 x10^3/uL (0.0-0.2) Segmented Neutrophils % 78 % (35-66) Band Neutrophils % 17 % (0-9) Lymphocytes % 2 % (24-48) Monocytes % 3 % (0-10) Platelet Estimate Adequate (ADEQUATE) Hypochromasia Mod Anisocytosis Marked Microcytosis Mod Macrocytosis Slight Prothrombin Time 16.5 SEC (11.7-14.0) Prothromb Time International Ratio 1.4 (0.8-1.1) Activated Partial Thromboplast Time 36 SEC (24-38) Sodium Level 130 mmol/L (136-145) Potassium Level 4.4 mmol/L (3.5-5.1) Chloride Level 99 mmol/L (98-107) Carbon Dioxide Level 21 mmol/L (21-32) Anion Gap 10 (6-14) Blood Urea Nitrogen 33 mg/dL (8-26) Creatinine 0.9 mg/dL (0.7-1.3) Estimated GFR (Cockcroft-Gault) 83.2 BUN/Creatinine Ratio 37 (6-20) Glucose Level 90 mg/dL (70-99) Calcium Level 7.1 mg/dL (8.5-10.1) Magnesium Level 2.1 mg/dL (1.8-2.4) Iron Level 36 ug/dL (65-175) Total Iron Binding Capacity 125 ug/dL (250-450) Iron Saturation 29 % (15-34) Total Bilirubin 0.6 mg/dL (0.2-1.0) Aspartate Amino Transf (AST/SGOT) 30 U/L (15-37) Alanine Aminotransferase (ALT/SGPT) 25 U/L (16-63) Alkaline Phosphatase 157 U/L (46-116) Troponin I Quantitative 0.017 ng/mL (0.000-0.055) FF-Izu-M-Type Natriuretic Peptide 350 pg/mL (0-124) Total Protein 5.4 g/dL (6.4-8.2) Albumin 1.5 g/dL (3.4-5.0) Albumin/Globulin Ratio 0.4 (1.0-1.7) Lipase 90 U/L (73-393) Vitamin B12 Level 837 pg/mL (247-911) Thyroid Stimulating Hormone (TSH) 2.217 uIU/mL (0.358-3.74) Urine Collection Type Unknown Urine Color Yellow Urine Clarity Clear Urine pH 5.5 (<5.0-8.0) Urine Specific [place] >=1.030 (1.000-1.030) Urine Protein Negative mg/dL (NEG-TRACE) Urine Glucose (UA) Negative mg/dL (NEG) Urine Ketones (Stick) 40 mg/dL (NEG) Urine Blood Negative (NEG) Urine Nitrite Negative (NEG) Urine Bilirubin Large (NEG) Urine Urobilinogen Dipstick 2.0 mg/dL (0.2 mg/dL) Urine Leukocyte Esterase Small (NEG) Urine RBC 0 /HPF (0-2) Urine WBC 11-20 /HPF (0-4) Urine Bacteria 0 /HPF (0-FEW) Urine Hyaline Casts Moderate /HPF Urine Mucus Marked /LPF Laboratory Tests Test 03/02/20 15:07 03/02/20 18:10 White Blood Count 12.1 x10^3/uL (4.0-11.0) Red Blood Count 4.37 x10^6/uL (4.30-5.70) Hemoglobin 9.8 g/dL (13.0-17.5) Hematocrit 31.3 % (39.0-53.0) Mean Corpuscular Volume 72 fL (79-100) Mean Corpuscular Hemoglobin 22 pg (25-35) Mean Corpuscular Hemoglobin Concent 31 g/dL (31-37) Red Cell Distribution Width 30.9 % (11.5-14.5) Platelet Count 391 x10^3/uL (140-400) Neutrophils (%) (Auto) 85 % (31-73) Lymphocytes (%) (Auto) 4 % (24-48) Monocytes (%) (Auto) 11 % (0-9) Eosinophils (%) (Auto) 0 % (0-3) Basophils (%) (Auto) 0 % (0-3) Neutrophils # (Auto) 10.4 x10^3/uL (1.8-7.7) Lymphocytes # (Auto) 0.4 x10^3/uL (1.0-4.8) Monocytes # (Auto) 1.3 x10^3/uL (0.0-1.1) Eosinophils # (Auto) 0.0 x10^3/uL (0.0-0.7) Basophils # (Auto) 0.0 x10^3/uL (0.0-0.2) Segmented Neutrophils % 78 % (35-66) Band Neutrophils % 17 % (0-9) Lymphocytes % 2 % (24-48) Monocytes % 3 % (0-10) Platelet Estimate Adequate (ADEQUATE) Hypochromasia Mod Anisocytosis Marked Microcytosis Mod Macrocytosis Slight Prothrombin Time 16.5 SEC (11.7-14.0) Prothromb Time International Ratio 1.4 (0.8-1.1) Activated Partial Thromboplast Time 36 SEC (24-38) Sodium Level 130 mmol/L (136-145) Potassium Level 4.4 mmol/L (3.5-5.1) Chloride Level 99 mmol/L (98-107) Carbon Dioxide Level 21 mmol/L (21-32) Anion Gap 10 (6-14) Blood Urea Nitrogen 33 mg/dL (8-26) Creatinine 0.9 mg/dL (0.7-1.3) Estimated GFR (Cockcroft-Gault) 83.2 BUN/Creatinine Ratio 37 (6-20) Glucose Level 90 mg/dL (70-99) Calcium Level 7.1 mg/dL (8.5-10.1) Magnesium Level 2.1 mg/dL (1.8-2.4) Iron Level 36 ug/dL (65-175) Total Iron Binding Capacity 125 ug/dL (250-450) Iron Saturation 29 % (15-34) Total Bilirubin 0.6 mg/dL (0.2-1.0) Aspartate Amino Transf (AST/SGOT) 30 U/L (15-37) Alanine Aminotransferase (ALT/SGPT) 25 U/L (16-63) Alkaline Phosphatase 157 U/L (46-116) Troponin I Quantitative 0.017 ng/mL (0.000-0.055) ZP-Ehl-E-Type Natriuretic Peptide 350 pg/mL (0-124) Total Protein 5.4 g/dL (6.4-8.2) Albumin 1.5 g/dL (3.4-5.0) Albumin/Globulin Ratio 0.4 (1.0-1.7) Lipase 90 U/L (73-393) Vitamin B12 Level 837 pg/mL (247-911) Thyroid Stimulating Hormone (TSH) 2.217 uIU/mL (0.358-3.74) Urine Collection Type Unknown Urine Color Yellow Urine Clarity Clear Urine pH 5.5 (<5.0-8.0) Urine Specific [place] >=1.030 (1.000-1.030) Urine Protein Negative mg/dL (NEG-TRACE) Urine Glucose (UA) Negative mg/dL (NEG) Urine Ketones (Stick) 40 mg/dL (NEG) Urine Blood Negative (NEG) Urine Nitrite Negative (NEG) Urine Bilirubin Large (NEG) Urine Urobilinogen Dipstick 2.0 mg/dL (0.2 mg/dL) Urine Leukocyte Esterase Small (NEG) Urine RBC 0 /HPF (0-2) Urine WBC 11-20 /HPF (0-4) Urine Bacteria 0 /HPF (0-FEW) Urine Hyaline Casts Moderate /HPF Urine Mucus Marked /LPF Assessment/Plan Assessment/Plan obstructing colonic mass albumin 1.5, ca 7.1. INR 1.[address] Goss, possible OR tomorrow MEGAN GOSS MD 03/03/202158: CONSULT Assessment/Plan Assessment/Plan Pt seen and examined. Agree with Angeline Luevano's note Pt with several month hx of severe fatigue on exertion and 15-20 lbs weight loss. Notes N/V with eating. Minimal stools abd soft, NTTP no previous abd surgery, no colonoscopy CT chest wnl CEA pending CT A/P- large obstructing right colon mass, possible invasion of duodenum and/or kidney agree with IVF resuscitation and medical maximization. Tentatively plan OR 03/05, if continued improvement. Pt does represent poor surgical candidate, given severe malnutrition. Thanks for consult! ISAAC LUEVANO APRN Mar 03, 2020 08:53 MEGAN GOSS MD Mar 03, 2020 21:59
[2020-03-03] MEDS ORDERED: BISACODYL 5 MG TABLET.DR. PO PRN (09:45)
[2020-03-03] MEDS ORDERED: BISACODYL 10 MG SUPP.RECT. PR PRN (09:45)
[2020-03-03] MEDS ORDERED: ONDANSETRON PF 4 MG/2 ML VIAL. IV PRN (09:45)
[2020-03-03] MEDS ORDERED: ACETAMINOPHEN 650 MG SUPP.RECT. PR PRN (09:45)
[2020-03-03] MEDS ORDERED: IV NORMAL SALINE 1000ML BAG 1,000 ML IV SCH (10:00)
[2020-03-03] MEDS: POLYETHYLENE GLYCOL 3350 17 GM PACKET. PO SCH ×2 (11:06→20:36)
[2020-03-03] MEDS: DOCUSATE SODIUM 100 MG CAPSULE. PO SCH (13:48)
--- NOTE | 2020-03-03 14:00 | PDOC2 ---
GI CONSULT Reason For Consult: colon mass HPI: HPI: 69 year old male with hx of prostate cancer s/p radiation (43 times at [facility] [place]), HTN now off meds who presents with vomiting fatigue diarrhea weight loss and decreased appetite for 2 month. He aslo complained of lower extremity edema. He saw his PCP with complaints of fatigue and had labs drawn as outpatient and called by PCP to go to the hospital for a blood transfusion. In ED, he was found to have Hgb of of 9.8 with a low MCV of 72. Iron was low at 36 and alk phos was elevated to 157. CT demonstrated small bowel dilatation/obstruction to the level of a 10.5 cm colonic mass. Colonic mass abuts the right hepatic lobe inferior margin as well asthe duodenum and anterior right kidney (extending through or deforming Gerota's fascia), suspicious for primary colon cancer. Prominent associated lymph nodes are seen, possibly metastatic. Otherwise no abdominal or pelvic lymphadenopathy. The appendix is dilated with infiltration mostly at the base. Although this may secondary dilation from obstruction from the colonic mass, acute appendicitis cannot be excluded but is felt to be less likely. Hepatic hypoattenuation likely fatty liver. Small gallstone is seen within the gallbladder PMH: PMH: Past Medical History Past Medical History HTN not on meds. prostate cancer s/p 43 treatments of radiation Past Surgical History Past Surgical History denies Family History Family History Mother with crc in her 70s Social History Smoke: <1 pack per day ALCOHOL: occassional Drugs: None Current Medications Home Medications Flomax Current Medications Sodium Chloride 1,000 ml @ 1,000 mls/hr 1X ONCE IV Last administered on 03/02/20at 17:05; Start 03/02/20 at 16:45; Stop 03/02/20 at 17:44; Status DC Calcium Gluconate (Calcium Gluconate) 1,000 mg 1X ONCE IVP Last administered on 03/02/20at 18:21; Start 03/02/20 at 18:15; Stop 03/02/20 at 18:18; Status DC Iohexol (Omnipaque 300 Mg/ml) 75 ml 1X ONCE IV Last administered on 03/02/20at 18:34; Start 03/02/20 at 18:30; Stop 03/02/20 at 18:31; Status DC Pantoprazole Sodium (PROTONIX VIAL for IV PUSH) 40 mg 1X ONCE IVP Last administered on 03/02/20at 18:41; Start 03/02/20 at 18:45; Stop 03/02/20 at 18:46 ; Status DC Sodium Chloride 1,000 ml @ 100 mls/hr 1X ONCE IV Last administered on 03/02/20at 19:04; Start 03/02/20 at 18:45; Stop 03/03/20 at 04:44 Allergies Allergies: Coded Allergies: aspirin (Verified Allergy, Severe, "SWELLING", 03/02/20) FH: Family History: Cancer (colon cancner in mother at age 70) Social History: Smoke: Quit ALCOHOL: occassional Drugs: None ROS: ROS Review of System CONSTITUTIONAL: No fever or chills EYES: No recent changes SKIN: No rash or itching CARDIOVASCULAR: No chest pain, syncope, palpitations, or edema RESPIRATORY: No SOB or cough GASTROINTESTINAL: No nausea, vomiting or abdominal pain NEUROLOGICAL: No headaches or weakness ENDOCRINE: No cold or heat intolerance GENITOURINARY: No urgency or frequency of urination MUSCULOSKELETAL: No back pain or joint pain LYMPHATICS: No enlarged lymph nodes PSYCHIATRIC: No anxiety or depression VItals: Vitals: Vital Signs Date Time Temp Pulse Resp B/P (MAP) Pulse Ox O2 Delivery O2 Flow Rate FiO2 03/03/20 11:00 97.3 96 17 120/81 (94) 98 Room Air 97.3 Labs: Labs: Laboratory Tests Test 03/02/20 15:07 03/02/20 18:10 White Blood Count 12.1 x10^3/uL (4.0-11.0) Red Blood Count 4.37 x10^6/uL (4.30-5.70) Hemoglobin 9.8 g/dL (13.0-17.5) Hematocrit 31.3 % (39.0-53.0) Mean Corpuscular Volume 72 fL (79-100) Mean Corpuscular Hemoglobin 22 pg (25-35) Mean Corpuscular Hemoglobin Concent 31 g/dL (31-37) Red Cell Distribution Width 30.9 % (11.5-14.5) Platelet Count 391 x10^3/uL (140-400) Neutrophils (%) (Auto) 85 % (31-73) Lymphocytes (%) (Auto) 4 % (24-48) Monocytes (%) (Auto) 11 % (0-9) Eosinophils (%) (Auto) 0 % (0-3) Basophils (%) (Auto) 0 % (0-3) Neutrophils # (Auto) 10.4 x10^3/uL (1.8-7.7) Lymphocytes # (Auto) 0.4 x10^3/uL (1.0-4.8) Monocytes # (Auto) 1.3 x10^3/uL (0.0-1.1) Eosinophils # (Auto) 0.0 x10^3/uL (0.0-0.7) Basophils # (Auto) 0.0 x10^3/uL (0.0-0.2) Segmented Neutrophils % 78 % (35-66) Band Neutrophils % 17 % (0-9) Lymphocytes % 2 % (24-48) Monocytes % 3 % (0-10) Platelet Estimate Adequate (ADEQUATE) Hypochromasia Mod Anisocytosis Marked Microcytosis Mod Macrocytosis Slight Prothrombin Time 16.5 SEC (11.7-14.0) Prothromb Time International Ratio 1.4 (0.8-1.1) Activated Partial Thromboplast Time 36 SEC (24-38) Sodium Level 130 mmol/L (136-145) Potassium Level 4.4 mmol/L (3.5-5.1) Chloride Level 99 mmol/L (98-107) Carbon Dioxide Level 21 mmol/L (21-32) Anion Gap 10 (6-14) Blood Urea Nitrogen 33 mg/dL (8-26) Creatinine 0.9 mg/dL (0.7-1.3) Estimated GFR (Cockcroft-Gault) 83.2 BUN/Creatinine Ratio 37 (6-20) Glucose Level 90 mg/dL (70-99) Calcium Level 7.1 mg/dL (8.5-10.1) Magnesium Level 2.1 mg/dL (1.8-2.4) Iron Level 36 ug/dL (65-175) Total Iron Binding Capacity 125 ug/dL (250-450) Iron Saturation 29 % (15-34) Total Bilirubin 0.6 mg/dL (0.2-1.0) Aspartate Amino Transf (AST/SGOT) 30 U/L (15-37) Alanine Aminotransferase (ALT/SGPT) 25 U/L (16-63) Alkaline Phosphatase 157 U/L (46-116) Troponin I Quantitative 0.017 ng/mL (0.000-0.055) YI-Kaz-O-Type Natriuretic Peptide 350 pg/mL (0-124) Total Protein 5.4 g/dL (6.4-8.2) Albumin 1.5 g/dL (3.4-5.0) Albumin/Globulin Ratio 0.4 (1.0-1.7) Lipase 90 U/L (73-393) Vitamin B12 Level 837 pg/mL (247-911) Thyroid Stimulating Hormone (TSH) 2.217 uIU/mL (0.358-3.74) Urine Collection Type Unknown Urine Color Yellow Urine Clarity Clear Urine pH 5.5 (<5.0-8.0) Urine Specific [place] >=1.030 (1.000-1.030) Urine Protein Negative mg/dL (NEG-TRACE) Urine Glucose (UA) Negative mg/dL (NEG) Urine Ketones (Stick) 40 mg/dL (NEG) Urine Blood Negative (NEG) Urine Nitrite Negative (NEG) Urine Bilirubin Large (NEG) Urine Urobilinogen Dipstick 2.0 mg/dL (0.2 mg/dL) Urine Leukocyte Esterase Small (NEG) Urine RBC 0 /HPF (0-2) Urine WBC 11-20 /HPF (0-4) Urine Bacteria 0 /HPF (0-FEW) Urine Hyaline Casts Moderate /HPF Urine Mucus Marked /LPF Imaging: Imaging: EXAM: CT Abdomen and Pelvis with IV contrast CLINICAL HISTORY: Nausea/vomiting. COMPARISON: none TECHNIQUE: Helical CT of the abdomen and pelvis was performed following the administration of IV contrast. Axial, coronal and sagittal reformatted images were generated. ---PQRS compliance statement - One or more of the following individualized dose reduction techniques were utilized for this study: 1. Automated exposure control 2. Adjustment of the mA and/or kV according to patient size 3. Use of iterative reconstruction technique--- FINDINGS: Lower chest: Trace right pleural effusion. Linear opacities right greater than left lower lobes likely scarring/atelectasis. Trace pericardial effusion. Abdomen and pelvis: Liver and biliary system: Diffuse hepatic hypoattenuation likely fatty liver. No definite liver lesion is convincingly seen. Gallbladder is contracted. Small gallstone is seen within the gallbladder. No biliary duct dilatation. Spleen: Unremarkable Pancreas: Unremarkable Adrenal glands: Unremarkable Kidneys: Symmetric nephrograms. No focal renal lesion. No hydronephrosis. No hydroureter. Lymph nodes/retroperitoneum: Prominent right upper quadrant lymph nodes are seen, for example a periportal lymph node measures 8 mm short axis. In addition prominent mesenteric lymph nodes are also seen including several right mesenteric lymph nodes. Vessels: Aorta is normal in caliber. Intermittent atherosclerotic calcifications are seen. Bowel/Peritoneal cavity: There is diffuse dilation of small bowel loops (measuring up to approximately 4.3 cm) to the level of a large fungating right ascending colon and cecal mass measuring approximately 10.3 x 9.2 x 10.5 cm (AP by transverse by craniocaudal). Of note, this mass abuts the duodenum as well as the inferior margin of the right hepatic lobe and anterior margin of the right kidney with effacement of the associated fat planes. In addition the appendix is distended measuring 1.3 cm with mild infiltration of the base. The majority of infiltration however is seen about the colonic mass described above. Trace free pelvic fluid. Abdominal wall: Unremarkable Bladder: Unremarkable Bones: Degenerative changes of the spine are seen. IMPRESSION: 1. Small bowel dilatation/obstruction to the level of a 10.5 cm colonic mass. Colonic mass abuts the right hepatic lobe inferior margin as well as the duodenum and anterior right kidney (extending through or deforming Gerota's fascia), suspicious for primary colon cancer. Prominent associated lymph nodes are seen, possibly metastatic. Otherwise no abdominal or pelvic lymphadenopathy. 2. The appendix is dilated with infiltration mostly at the base. Although this may secondary dilation from obstruction from the colonic mass, acute appendicitis cannot be excluded but is felt to be less likely. 3. Hepatic hypoattenuation likely fatty liver. 4. Small gallstone is seen within the gallbladder Findings discussed with MARY MCKEON at 03/02/2020 7:04 PM. FOR INTERNAL CODING PURPOSES RESULT CODE: (C) Electronically signed by: Derrick Arriaga MD (03/02/2020 7:05 PM) [facility] DICTATED and SIGNED BY: DERRICK ARRIAGA MD DATE: 03/02/201904 PE: Physical Exam Physical Exam GENERAL: No apparent distress. Alert and oriented. HEENT: Head normocephalic, atraumatic. NECK: Supple LUNGS: Clear to auscultation. HEART: RRR, S1, S2 present, pulses intact ABDOMEN: Soft, increased bowel sounds. EXTREMITIES: No cyanosis or edema. NEUROLOGIC: Normal speech, normal tone PSYCHIATRIC: Normal affect, normal mood. SKIN: No ulceration. A/P: A/P: A 1) Colon mass 2) iron deficiency anemia 3) diarrhea 4) FMH CRC 5) Elevated alk phos P 1) D/w Dr Goss. Pt will likely go to surgery in the near future. I agree with this approach. No clear benefit to preop colonoscopy given obstructing nature of mass 2) Consider iron infusion. This can be done after surgery 3) Favor check preop CEA 4) Monitor labs LEONIDES QUICK MD Mar 03, 2020 14:00
--- NOTE | 2020-03-03 14:56 | PDOC2 ---
CONSULT Date of Consult Date of Consult DATE: 03/03/20 TIME: 14:47 Reason for Consult Reason for Consult: LOW NA Referring Physician Referring Physician: KAILEY Identification/Chief Complaint Chief Complaint N/V/DIARRHEA. WT LOSS AND FATIGUE History of Present Illness Reason for Visit: THIS IS A 69 YR OLD WITH COUPLE MONTHS OF WEAKNESS, DIARRHEA WITH N/V. ALSO NOTED LE EDEMA LABS NOTED AND HE HAS ANEMIA AND LOW NA OF 130. ABD IMAGING NOTABLE FOR BOWEL OBSTRUCTION AND A RIGHT COLON MASS WITH EXTRINSIC COMPRESSION INTO GEROTA'S FASCIA. RENAL MORPHOLOGY OTHERWISE NORMAL. HX NOTABLE FOR PROSTATE CAN AND HX OF RAD TX. NOW HAS BPH AND ON FLOMAX. ABLE TO EMPTY WELL. NO PRIOR HX OF LOW NA Past Medical History Cardiovascular: HTN Renal/: Prostate Ca. Past Surgical History Past Surgical History: No pertinent history Family History Family History: No Significant, Other (noncontributory to current illness ) Social History Quit ALCOHOL: occassional Drugs: None Lives: with Family Current Problem List Problem List Problems Medical Problems: (1) Anemia Status: Acute (2) Colonic mass Status: Acute (3) Fatigue Status: Acute (4) Hypocalcemia Status: Acute (5) Nausea & vomiting Status: Acute (6) SBO (small bowel obstruction) Status: Acute Current Medications Current Medications Current Medications Sodium Chloride 1,000 ml @ 1,000 mls/hr 1X ONCE IV Last administered on 03/02/20at 17:05; Start 03/02/20 at 16:45; Stop 03/02/20 at 17:44; Status DC Calcium Gluconate (Calcium Gluconate) 1,000 mg 1X ONCE IVP Last administered on 03/02/20at 18:21; Start 03/02/20 at 18:15; Stop 03/02/20 at 18:18; Status DC Iohexol (Omnipaque 300 Mg/ml) 75 ml 1X ONCE IV Last administered on 03/02/20at 18:34; Start 03/02/20 at 18:30; Stop 03/02/20 at 18:31; Status DC Pantoprazole Sodium (PROTONIX VIAL for IV PUSH) 40 mg 1X ONCE IVP Last administered on 03/02/20at 18:41; Start 03/02/20 at 18:45; Stop 03/02/20 at 18:46; Status DC Sodium Chloride 1,000 ml @ 100 mls/hr 1X ONCE IV Last administered on 03/02/20at 19:04; Start 03/02/20 at 18:45; Stop 03/03/20 at 04:44; Status DC Enoxaparin Sodium (Lovenox Per Pharmacy Prophylaxis Dosing) 1 each PRN DAILY PRN MC SEE COMMENTS; Start 03/02/20 at 20:30 Enoxaparin Sodium (Lovenox 40mg Syringe) 40 mg Q24H SQ Last administered on 03/02/20at 23:48; Start 03/02/20 at 21:00; Stop 03/03/20 at 08:48; Status DC Tamsulosin HCl (Flomax) 0.4 mg HS PO Last administered on 03/02/20at 23:48; Start 03/02/20 at 23:45 Sodium Chloride 1,000 ml @ 100 mls/hr Q10H IV Last administered on 03/03/20at 11:07; Start 03/03/20 at 10:00 Ondansetron HCl (Zofran) 4 mg PRN Q4HRS PRN IV NAUSEA/VOMITING; Start 03/03/20 at 09:45 Acetaminophen (Tylenol Supp) 650 mg PRN Q4HRS PRN MD TEMP OVER 100.4F OR MILD PAIN; Start 03/03/20 at 09:45 Polyethylene Glycol (miraLAX PACKET) 17 gm DAILY PO Last administered on 03/03/20at 11:06; Start 03/03/20 at 10:00 Bisacodyl (Dulcolax Supp) 10 mg PRN DAILY PRN MD CONSTIPATION; Start 03/03/20 at 09:45 Bisacodyl (Dulcolax Tab) 10 mg PRN DAILY PRN PO CONSTIPATION Last administered on 03/03/20at 13:47; Start 03/03/20 at 09:45 Psyllium Hydrophilic Mucilloid (Metamucil Fiber Packet) 1 pkt QHS PO ; Start 03/03/20 at 21:00 Polyethylene Glycol (miraLAX PACKET) 17 gm QHS PO ; Start 03/03/20 at 21:00 Docusate Sodium (Colace) 100 mg DAILY PO Last administered on 03/03/20at 13:48; Start 03/03/20 at 12:00 Active Scripts Active Reported Flomax (Tamsulosin Hcl) 0.4 Mg Cap.er.24h 1 Cap PO QHS Allergies Allergies: Coded Allergies: aspirin (Verified Allergy, Severe, "SWELLING", 03/02/20) ROS General: YES: Fatigue, Malaise, Appetite PSYCHOLOGICAL ROS: YES: Depression Eyes: Yes Decreased vision HEENT: YES: Heacaches Respiratory: YES: Cough Gastrointestinal: Yes Nausea, Yes Vomiting, Yes Abdominal Pain, Yes Diarrhea Genitourinary: YES Other (NOCTURIA) Musculoskeletal: Yes Muscular Weakness Neurological: Yes Weakness Skin: Yes Dry Skin Physical Exam General: Alert, Oriented X3, Cooperative, No acute distress HEENT: Atraumatic, PERRLA, EOMI Lungs: Clear to auscultation Heart: Regular rate, Normal S2 Abdomen: Normal bowel sounds, Soft, No tenderness, No hepatosplenomegaly Extremities: No clubbing, No cyanosis Skin: No breakdown, No significant lesion Neuro: Normal speech, Sensation intact Psych/Mental Status: Mental status NL, Mood NL MUSCULOSKELETAL: No joint tenderness, No deformity, Other (2+ PRE TIBIAL AND ANKLE EDEMA) Vitals VITALS Vital Signs Date Time Temp Pulse Resp B/P (MAP) Pulse Ox O2 Delivery O2 Flow Rate FiO2 03/03/20 11:00 97.3 96 17 120/81 (94) 98 Room Air 97.3 Labs Labs Laboratory Tests Test 03/02/20 15:07 03/02/20 18:10 White Blood Count 12.1 x10^3/uL (4.0-11.0) Red Blood Count 4.37 x10^6/uL (4.30-5.70) Hemoglobin 9.8 g/dL (13.0-17.5) Hematocrit 31.3 % (39.0-53.0) Mean Corpuscular Volume 72 fL (79-100) Mean Corpuscular Hemoglobin 22 pg (25-35) Mean Corpuscular Hemoglobin Concent 31 g/dL (31-37) Red Cell Distribution Width 30.9 % (11.5-14.5) Platelet Count 391 x10^3/uL (140-400) Neutrophils (%) (Auto) 85 % (31-73) Lymphocytes (%) (Auto) 4 % (24-48) Monocytes (%) (Auto) 11 % (0-9) Eosinophils (%) (Auto) 0 % (0-3) Basophils (%) (Auto) 0 % (0-3) Neutrophils # (Auto) 10.4 x10^3/uL (1.8-7.7) Lymphocytes # (Auto) 0.4 x10^3/uL (1.0-4.8) Monocytes # (Auto) 1.3 x10^3/uL (0.0-1.1) Eosinophils # (Auto) 0.0 x10^3/uL (0.0-0.7) Basophils # (Auto) 0.0 x10^3/uL (0.0-0.2) Segmented Neutrophils % 78 % (35-66) Band Neutrophils % 17 % (0-9) Lymphocytes % 2 % (24-48) Monocytes % 3 % (0-10) Platelet Estimate Adequate (ADEQUATE) Hypochromasia Mod Anisocytosis Marked Microcytosis Mod Macrocytosis Slight Prothrombin Time 16.5 SEC (11.7-14.0) Prothromb Time International Ratio 1.4 (0.8-1.1) Activated Partial Thromboplast Time 36 SEC (24-38) Sodium Level 130 mmol/L (136-145) Potassium Level 4.4 mmol/L (3.5-5.1) Chloride Level 99 mmol/L (98-107) Carbon Dioxide Level 21 mmol/L (21-32) Anion Gap 10 (6-14) Blood Urea Nitrogen 33 mg/dL (8-26) Creatinine 0.9 mg/dL (0.7-1.3) Estimated GFR (Cockcroft-Gault) 83.2 BUN/Creatinine Ratio 37 (6-20) Glucose Level 90 mg/dL (70-99) Calcium Level 7.1 mg/dL (8.5-10.1) Magnesium Level 2.1 mg/dL (1.8-2.4) Iron Level 36 ug/dL (65-175) Total Iron Binding Capacity 125 ug/dL (250-450) Iron Saturation 29 % (15-34) Total Bilirubin 0.6 mg/dL (0.2-1.0) Aspartate Amino Transf (AST/SGOT) 30 U/L (15-37) Alanine Aminotransferase (ALT/SGPT) 25 U/L (16-63) Alkaline Phosphatase 157 U/L (46-116) Troponin I Quantitative 0.017 ng/mL (0.000-0.055) YK-Tcc-P-Type Natriuretic Peptide 350 pg/mL (0-124) Total Protein 5.4 g/dL (6.4-8.2) Albumin 1.5 g/dL (3.4-5.0) Albumin/Globulin Ratio 0.4 (1.0-1.7) Lipase 90 U/L (73-393) Vitamin B12 Level 837 pg/mL (247-911) Thyroid Stimulating Hormone (TSH) 2.217 uIU/mL (0.358-3.74) Urine Collection Type Unknown Urine Color Yellow Urine Clarity Clear Urine pH 5.5 (<5.0-8.0) Urine Specific Lorraine >=1.030 (1.000-1.030) Urine Protein Negative mg/dL (NEG-TRACE) Urine Glucose (UA) Negative mg/dL (NEG) Urine Ketones (Stick) 40 mg/dL (NEG) Urine Blood Negative (NEG) Urine Nitrite Negative (NEG) Urine Bilirubin Large (NEG) Urine Urobilinogen Dipstick 2.0 mg/dL (0.2 mg/dL) Urine Leukocyte Esterase Small (NEG) Urine RBC 0 /HPF (0-2) Urine WBC 11-20 /HPF (0-4) Urine Bacteria 0 /HPF (0-FEW) Urine Hyaline Casts Moderate /HPF Urine Mucus Marked /LPF Laboratory Tests Test 03/02/20 15:07 03/02/20 18:10 White Blood Count 12.1 x10^3/uL (4.0-11.0) Red Blood Count 4.37 x10^6/uL (4.30-5.70) Hemoglobin 9.8 g/dL (13.0-17.5) Hematocrit 31.3 % (39.0-53.0) Mean Corpuscular Volume 72 fL (79-100) Mean Corpuscular Hemoglobin 22 pg (25-35) Mean Corpuscular Hemoglobin Concent 31 g/dL (31-37) Red Cell Distribution Width 30.9 % (11.5-14.5) Platelet Count 391 x10^3/uL (140-400) Neutrophils (%) (Auto) 85 % (31-73) Lymphocytes (%) (Auto) 4 % (24-48) Monocytes (%) (Auto) 11 % (0-9) Eosinophils (%) (Auto) 0 % (0-3) Basophils (%) (Auto) 0 % (0-3) Neutrophils # (Auto) 10.4 x10^3/uL (1.8-7.7) Lymphocytes # (Auto) 0.4 x10^3/uL (1.0-4.8) Monocytes # (Auto) 1.3 x10^3/uL (0.0-1.1) Eosinophils # (Auto) 0.0 x10^3/uL (0.0-0.7) Basophils # (Auto) 0.0 x10^3/uL (0.0-0.2) Segmented Neutrophils % 78 % (35-66) Band Neutrophils % 17 % (0-9) Lymphocytes % 2 % (24-48) Monocytes % 3 % (0-10) Platelet Estimate Adequate (ADEQUATE) Hypochromasia Mod Anisocytosis Marked Microcytosis Mod Macrocytosis Slight Prothrombin Time 16.5 SEC (11.7-14.0) Prothromb Time International Ratio 1.4 (0.8-1.1) Activated Partial Thromboplast Time 36 SEC (24-38) Sodium Level 130 mmol/L (136-145) Potassium Level 4.4 mmol/L (3.5-5.1) Chloride Level 99 mmol/L (98-107) Carbon Dioxide Level 21 mmol/L (21-32) Anion Gap 10 (6-14) Blood Urea Nitrogen 33 mg/dL (8-26) Creatinine 0.9 mg/dL (0.7-1.3) Estimated GFR (Cockcroft-Gault) 83.2 BUN/Creatinine Ratio 37 (6-20) Glucose Level 90 mg/dL (70-99) Calcium Level 7.1 mg/dL (8.5-10.1) Magnesium Level 2.1 mg/dL (1.8-2.4) Iron Level 36 ug/dL (65-175) Total Iron Binding Capacity 125 ug/dL (250-450) Iron Saturation 29 % (15-34) Total Bilirubin 0.6 mg/dL (0.2-1.0) Aspartate Amino Transf (AST/SGOT) 30 U/L (15-37) Alanine Aminotransferase (ALT/SGPT) 25 U/L (16-63) Alkaline Phosphatase 157 U/L (46-116) Troponin I Quantitative 0.017 ng/mL (0.000-0.055) HA-Afo-N-Type Natriuretic Peptide 350 pg/mL (0-124) Total Protein 5.4 g/dL (6.4-8.2) Albumin 1.5 g/dL (3.4-5.0) Albumin/Globulin Ratio 0.4 (1.0-1.7) Lipase 90 U/L (73-393) Vitamin B12 Level 837 pg/mL (247-911) Thyroid Stimulating Hormone (TSH) 2.217 uIU/mL (0.358-3.74) Urine Collection Type Unknown Urine Color Yellow Urine Clarity Clear Urine pH 5.5 (<5.0-8.0) Urine Specific Lorraine >=1.030 (1.000-1.030) Urine Protein Negative mg/dL (NEG-TRACE) Urine Glucose (UA) Negative mg/dL (NEG) Urine Ketones (Stick) 40 mg/dL (NEG) Urine Blood Negative (NEG) Urine Nitrite Negative (NEG) Urine Bilirubin Large (NEG) Urine Urobilinogen Dipstick 2.0 mg/dL (0.2 mg/dL) Urine Leukocyte Esterase Small (NEG) Urine RBC 0 /HPF (0-2) Urine WBC 11-20 /HPF (0-4) Urine Bacteria 0 /HPF (0-FEW) Urine Hyaline Casts Moderate /HPF Urine Mucus Marked /LPF Images Images CHEST AP ONLY History: Reason: chest pain / Spl. Instructions: / History: Comparison: None. Findings: No consolidation or pleural effusion. Normal heart size. No pneumothorax. Prior granulomatous disease within the chest. Impression: 1. No acute cardiopulmonary process. Electronically signed by: Jose Garcia DO (03/02/2020 3:59 PM) [id number] EXAM: CT Abdomen and Pelvis with IV contrast CLINICAL HISTORY: Nausea/vomiting. COMPARISON: none TECHNIQUE: Helical CT of the abdomen and pelvis was performed following the administration of IV contrast. Axial, coronal and sagittal reformatted images were generated. ---PQRS compliance statement - One or more of the following individualized dose reduction techniques were utilized for this study: 1. Automated exposure control 2. Adjustment of the mA and/or kV according to patient size 3. Use of iterative reconstruction technique--- FINDINGS: Lower chest: Trace right pleural effusion. Linear opacities right greater than left lower lobes likely scarring/atelectasis. Trace pericardial effusion. Abdomen and pelvis: Liver and biliary system: Diffuse hepatic hypoattenuation likely fatty liver. No definite liver lesion is convincingly seen. Gallbladder is contracted. Small gallstone is seen within the gallbladder. No biliary duct dilatation. Spleen: Unremarkable Pancreas: Unremarkable Adrenal glands: Unremarkable Kidneys: Symmetric nephrograms. No focal renal lesion. No hydronephrosis. No hydroureter. Lymph nodes/retroperitoneum: Prominent right upper quadrant lymph nodes are seen, for example a periportal lymph node measures 8 mm short axis. In addition prominent mesenteric lymph nodes are also seen including several right mesenteric lymph nodes. Vessels: Aorta is normal in caliber. Intermittent atherosclerotic calcifications are seen. Bowel/Peritoneal cavity: There is diffuse dilation of small bowel loops (measuring up to approximately 4.3 cm) to the level of a large fungating right ascending colon and cecal mass measuring approximately 10.3 x 9.2 x 10.5 cm (AP by transverse by craniocaudal). Of note, this mass abuts the duodenum as well as the inferior margin of the right hepatic lobe and anterior margin of the right kidney with effacement of the associated fat planes. In addition the appendix is distended measuring 1.3 cm with mild infiltration of the base. The majority of infiltration however is seen about the colonic mass described above. Trace free pelvic fluid. Abdominal wall: Unremarkable Bladder: Unremarkable Bones: Degenerative changes of the spine are seen. IMPRESSION: 1. Small bowel dilatation/obstruction to the level of a 10.5 cm colonic mass. Colonic mass abuts the right hepatic lobe inferior margin as well as the duodenum and anterior right kidney (extending through or deforming Gerota's fascia), suspicious for primary colon cancer. Prominent associated lymph nodes are seen, possibly metastatic. Otherwise no abdominal or pelvic lymphadenopathy. 2. The appendix is dilated with infiltration mostly at the base. Although this may secondary dilation from obstruction from the colonic mass, acute appendicitis cannot be excluded but is felt to be less likely. 3. Hepatic hypoattenuation likely fatty liver. 4. Small gallstone is seen within the gallbladder Findings discussed with MARY MCKEON at 03/02/2020 7:04 PM. FOR INTERNAL CODING PURPOSES RESULT CODE: (C) Electronically signed by: Derrick Arriaga MD (03/02/2020 7:05 PM) [facility] DICTATED and SIGNED BY: DERRICK ARRIAGA MD DATE: 03/02/20 190 Assessment/Plan Assessment/Plan IMP HYPONATREMIA DEHYDRATION-N/V/DIARRHEA WT LOSS SBO COLON MASS ANEMIA IRON DEFICIENCY HX OF PROSTATE CA BPH ON FLOMAX LE EDEMA PLAN PPN FOR NOW IV LASIX ONCE URINE STUDIES WILL FOLLOW DONNIE BERMEO MD Mar 03, 2020 14:55
[2020-03-03] MEDS ORDERED: FUROSEMIDE 40 MG/4 ML VIAL. IVP ONE (15:00)
[2020-03-03] MEDS ORDERED: IOHEXOL 300 MG/ML 100ML VIAL. IV ONE (16:15)
[2020-03-03] MEDS ORDERED: CONTRAST GIVEN. MC PRN (16:15)
[2020-03-03] MEDS: AMINO AC 3%/ELECTROLYTE/GLYCER 1,000 ML IV SCH (16:48)
--- NOTE | 2020-03-03 17:54 | RAD ---
Exam performed: CT of the chest with contrast. Date: 03/03/2020. Comparison:Single view chest from earlier today Indication: Colon cancer Technique: Contiguous helical acquisitions are obtained through the chest during intravenous administration of 75 cc of Omnipaque 300. Sagittal and coronal reformatted images are obtained and reviewed. Findings: The structures at the thoracic inlet appear normal. Right thyroid nodules aorta and pulmonary arteries appear normal. No mediastinal or hilar adenopathy is seen. The heart size is normal without pericardial effusion. Atheromatous aortic calcification. Lungs are well-expanded and clear. Small bilateral pleural effusions. Calcified nodule seen in the left lung. Limited evaluation of the upper abdominal structures demonstrates diffuse hepatic steatosis. Bones are normal. Impression: 1. Small bilateral pleural effusion, otherwise no additional abnormality seen. 2.Diffuse hepatic steatosis. PQRS Compliance Statement: One or more of the following individualized dose reduction techniques were utilized for this examination: 1. Automated exposure control 2. Adjustment of the mA and/or kV according to patient size 3. Use of iterative reconstruction technique Electronically signed by: Sobeida Yuen MD (03/03/2020 5:52 PM) [facility]
[2020-03-03] MEDS: TAMSULOSIN 0.4 MG CAP.ER.24H. PO SCH (20:36)
[2020-03-03] MEDS: PSYLLIUM HUSK (SUGAR FREE) 1 PKT PACKET PO SCH (20:36)
[2020-03-04 03:52] VITALS: BP 130/78
[2020-03-04 04:48] LABS: CALCIUM 6.6 mg/dL (8.5-10.1); CREATININE 0.8 mg/dL (0.7-1.3); GFR 95.3; POTASSIUM 3.8 mmol/L (3.5-5.1)
[2020-03-04] MEDS: AMINO AC 3%/ELECTROLYTE/GLYCER 1,000 ML IV SCH ×2 (05:04→17:59)
[2020-03-04 07:00] VITALS: BP 113/80
--- NOTE | 2020-03-04 08:42 | PDOC ---
PROGRESS NOTES Chief Complaint Chief Complaint A/P: Nausea Vomiting Fatigue Weight Loss Small bowel dilatation/obstruction suspicious for primary colon cancer 10.5cm mass with surrounding lymph nodes concerning for metastatic disease Dialated Appendix fatty liver dz Gallstones Microcytic Anemia Alkaline Phosphatemia Hyponatremia Mild Leukocytosis Tachycardia H/o prostate cancer in remission Sever protein calorie malnutrition LE edema - BNP of 350, no cardiac history and no symptoms of CHF. This is unlikely to be cardiac related at all. Likely likely lymphatic obstruction due to abdominal mass. Hyponatremia - likely due to poor PO intake FEN - NPO History of Present Illness History of Present Illness Mr Claudio is a 69 yo CM hx of prostate cancer s/p radiation, HTN, prediabetes now off meds who presents with vomiting fatigue diarrhea weight loss and decreased appetite for 1 month. He went to see his PCP because over the past week he had sudden onset lower extremity edema, patient had labs drawn as outpatient and called by PCP to go to the hospital for a blood transfusion and treatment for CHF. No history of CHF. On ROS he just notes his bones feel heavy. He also notes over the past 2 months sometimes he will choke on food and vomited up. His last bowel movement was 2 days ago and it was diarrhea. He has not been able to eat very well. He just feels tired. He stopped smoking over 25 years ago and he only did smoke cigars at that time. With regard to his prostate cancer he states that he had 43 radiation treatments and had a PET scan at the end of 2019 and was told he is in remission. He has never had a colonoscopy. in ED patient found to have hb of 9.8. na 130. noted to be tachy with HR 110. Patient lives with 101 year old mom. His mother has history of stage III colon cancer diagnosed at age 76. His brother has history of prostate cancer, father of lung cancer. Ct abdomen in ED revealed: 1. Small bowel dilatation/obstruction to the level of a 10.5 cm colonic mass. Colonic mass abuts the right hepatic lobe inferior margin as well as the duodenu m and anterior right kidney (extending through or deforming Gerota's fascia), suspicious for primary colon cancer. Prominent associated lymph nodes are seen, possibly metastatic. Otherwise no abdominal or pelvic lymphadenopathy. 2. The appendix is dilated with infiltration mostly at the base. Although this may secondary dilation from obstruction from the colonic mass, acute append icitis cannot be excluded but is felt to be less likely. 3. Hepatic hypoattenuation likely fatty liver. 4. Small gallstone is seen within the gallbladder 03/03: He has some nausea, he is worried about his mother going into hospice. No shortness of breath, no orthopnea, no PND. Does have 3+ pitting edema. He has multiple questions about having surgery and having port placement. I advised him he needs a diagnosis and surgery. Afebrile. NA 132. Started on PPN. Given Lasix with improvement in his edema. He is somewhat anxious about surgery and has multiple questions. No chest pain or shortness of breath, a lot of weakness and says he feels weak in his bones. 2x BM overnight Vitals Vitals Vital Signs Date Time Temp Pulse Resp B/P (MAP) Pulse Ox O2 Delivery O2 Flow Rate FiO2 03/04/20 07:00 98.4 103 16 113/80 (91) 98 Room Air 98.4 Physical Exam General: Alert, Oriented X3, Cooperative, No acute distress Heart: Regular rate, Normal S2 Lungs: Clear Abdomen: Normal bowel sounds, Soft, No tenderness, No hepatosplenomegaly Extremities: No clubbing, No cyanosis Skin: No breakdown, No significant lesion Labs LABS Laboratory Tests Test 03/03/20 11:10 03/04/20 03:45 Coronavirus (COVID-19)(PCR) Negative (NEGATIVE) Sodium Level 132 mmol/L (136-145) Potassium Level 3.8 mmol/L (3.5-5.1) Chloride Level 100 mmol/L (98-107) Carbon Dioxide Level 24 mmol/L (21-32) Anion Gap 8 (6-14) Blood Urea Nitrogen 26 mg/dL (8-26) Creatinine 0.8 mg/dL (0.7-1.3) Estimated GFR (Cockcroft-Gault) 95.3 Glucose Level 77 mg/dL (70-99) Calcium Level 6.6 mg/dL (8.5-10.1) Magnesium Level 2.0 mg/dL (1.8-2.4) Assessment and Plan Assessmemt and Plan Problems Medical Problems: (1) Anemia Status: Acute (2) Colonic mass Status: Acute (3) Fatigue Status: Acute (4) Hypocalcemia Status: Acute (5) Nausea & vomiting Status: Acute (6) SBO (small bowel obstruction) Status: Acute Comment Review of Relevant I have reviewed the following items radhames (where applicable) has been applied. Labs Laboratory Tests Test 03/02/20 15:07 03/02/20 18:10 03/03/20 11:10 03/04/20 03:45 White Blood Count 12.1 x10^3/uL (4.0-11.0) Red Blood Count 4.37 x10^6/uL (4.30-5.70) Hemoglobin 9.8 g/dL (13.0-17.5) Hematocrit 31.3 % (39.0-53.0) Mean Corpuscular Volume 72 fL (79-100) Mean Corpuscular Hemoglobin 22 pg (25-35) Mean Corpuscular Hemoglobin Concent 31 g/dL (31-37) Red Cell Distribution Width 30.9 % (11.5-14.5) Platelet Count 391 x10^3/uL (140-400) Neutrophils (%) (Auto) 85 % (31-73) Lymphocytes (%) (Auto) 4 % (24-48) Monocytes (%) (Auto) 11 % (0-9) Eosinophils (%) (Auto) 0 % (0-3) Basophils (%) (Auto) 0 % (0-3) Neutrophils # (Auto) 10.4 x10^3/uL (1.8-7.7) Lymphocytes # (Auto) 0.4 x10^3/uL (1.0-4.8) Monocytes # (Auto) 1.3 x10^3/uL (0.0-1.1) Eosinophils # (Auto) 0.0 x10^3/uL (0.0-0.7) Basophils # (Auto) 0.0 x10^3/uL (0.0-0.2) Segmented Neutrophils % 78 % (35-66) Band Neutrophils % 17 % (0-9) Lymphocytes % 2 % (24-48) Monocytes % 3 % (0-10) Platelet Estimate Adequate (ADEQUATE) Hypochromasia Mod Anisocytosis Marked Microcytosis Mod Macrocytosis Slight Prothrombin Time 16.5 SEC (11.7-14.0) Prothromb Time International Ratio 1.4 (0.8-1.1) Activated Partial Thromboplast Time 36 SEC (24-38) Sodium Level 130 mmol/L (136-145) 132 mmol/L (136-145) Potassium Level 4.4 mmol/L (3.5-5.1) 3.8 mmol/L (3.5-5.1) Chloride Level 99 mmol/L (98-107) 100 mmol/L (98-107) Carbon Dioxide Level 21 mmol/L (21-32) 24 mmol/L (21-32) Anion Gap 10 (6-14) 8 (6-14) Blood Urea Nitrogen 33 mg/dL (8-26) 26 mg/dL (8-26) Creatinine 0.9 mg/dL (0.7-1.3) 0.8 mg/dL (0.7-1.3) Estimated GFR (Cockcroft-Gault) 83.2 95.3 BUN/Creatinine Ratio 37 (6-20) Glucose Level 90 mg/dL (70-99) 77 mg/dL (70-99) Calcium Level 7.1 mg/dL (8.5-10.1) 6.6 mg/dL (8.5-10.1) Magnesium Level 2.1 mg/dL (1.8-2.4) 2.0 mg/dL (1.8-2.4) Iron Level 36 ug/dL (65-175) Total Iron Binding Capacity 125 ug/dL (250-450) Iron Saturation 29 % (15-34) Total Bilirubin 0.6 mg/dL (0.2-1.0) Aspartate Amino Transf (AST/SGOT) 30 U/L (15-37) Alanine Aminotransferase (ALT/SGPT) 25 U/L (16-63) Alkaline Phosphatase 157 U/L (46-116) Troponin I Quantitative 0.017 ng/mL (0.000-0.055) TQ-Kul-[id number]-Type Natriuretic Peptide 350 pg/mL (0-124) Total Protein 5.4 g/dL (6.4-8.2) Albumin 1.5 g/dL (3.4-5.0) Albumin/Globulin Ratio 0.4 (1.0-1.7) Lipase 90 U/L (73-393) Vitamin B12 Level 837 pg/mL (247-911) Thyroid Stimulating Hormone (TSH) 2.217 uIU/mL (0.358-3.74) Urine Collection Type Unknown Urine Color Yellow Urine Clarity Clear Urine pH 5.5 (<5.0-8.0) Urine Specific Index >=1.030 (1.000-1.030) Urine Protein Negative mg/dL (NEG-TRACE) Urine Glucose (UA) Negative mg/dL (NEG) Urine Ketones (Stick) 40 mg/dL (NEG) Urine Blood Negative (NEG) Urine Nitrite Negative (NEG) Urine Bilirubin Large (NEG) Urine Urobilinogen Dipstick 2.0 mg/dL (0.2 mg/dL) Urine Leukocyte Esterase Small (NEG) Urine RBC 0 /HPF (0-2) Urine WBC 11-20 /HPF (0-4) Urine Bacteria 0 /HPF (0-FEW) Urine Hyaline Casts Moderate /HPF Urine Mucus Marked /LPF Coronavirus (COVID-19)(PCR) Negative (NEGATIVE) Laboratory Tests Test 03/03/20 11:10 03/04/20 03:45 Coronavirus (COVID-19)(PCR) Negative (NEGATIVE) Sodium Level 132 mmol/L (136-145) Potassium Level 3.8 mmol/L (3.5-5.1) Chloride Level 100 mmol/L (98-107) Carbon Dioxide Level 24 mmol/L (21-32) Anion Gap 8 (6-14) Blood Urea Nitrogen 26 mg/dL (8-26) Creatinine 0.8 mg/dL (0.7-1.3) Estimated GFR (Cockcroft-Gault) 95.3 Glucose Level 77 mg/dL (70-99) Calcium Level 6.6 mg/dL (8.5-10.1) Magnesium Level 2.0 mg/dL (1.8-2.4) Medications Current Medications Sodium Chloride 1,000 ml @ 1,000 mls/hr 1X ONCE IV Last administered on 03/02/20at 17:05; Start 03/02/20 at 16:45; Stop 03/02/20 at 17:44; Status DC Calcium Gluconate (Calcium Gluconate) 1,000 mg 1X ONCE IVP Last administered on 03/02/20at 18:21; Start 03/02/20 at 18:15; Stop 03/02/20 at 18:18; Status DC Iohexol (Omnipaque 300 Mg/ml) 75 ml 1X ONCE IV Last administered on 03/02/20at 18:34; Start 03/02/20 at 18:30; Stop 03/02/20 at 18:31; Status DC Pantoprazole Sodium (PROTONIX VIAL for IV PUSH) 40 mg 1X ONCE IVP Last administered on 03/02/20at 18:41; Start 03/02/20 at 18:45; Stop 03/02/20 at 18:46; Status DC Sodium Chloride 1,000 ml @ 100 mls/hr 1X ONCE IV Last administered on 03/02/20at 19:04; Start 03/02/20 at 18:45; Stop 03/03/20 at 04:44; Status DC Enoxaparin Sodium (Lovenox Per Pharmacy Prophylaxis Dosing) 1 each PRN DAILY PRN MC SEE COMMENTS; Start 03/02/20 at 20:30 Enoxaparin Sodium (Lovenox 40mg Syringe) 40 mg Q24H SQ Last administered on 03/02/20at 23:48; Start 03/02/20 at 21:00; Stop 03/03/20 at 08:48; Status DC Tamsulosin HCl (Flomax) 0.4 mg HS PO Last administered on 03/03/20at 20:36; Start 03/02/20 at 23:45 Sodium Chloride 1,000 ml @ 100 mls/hr Q10H IV Last administered on 03/03/20at 11:07; Start 03/03/20 at 10:00; Stop 03/03/20 at 14:58; Status DC Ondansetron HCl (Zofran) 4 mg PRN Q4HRS PRN IV NAUSEA/VOMITING; Start 03/03/20 at 09:45 Acetaminophen (Tylenol Supp) 650 mg PRN Q4HRS PRN UT TEMP OVER 100.4F OR MILD PAIN; Start 03/03/20 at 09:45 Polyethylene Glycol (miraLAX PACKET) 17 gm DAILY PO Last administered on 03/03/20at 11:06; Start 03/03/20 at 10:00 Bisacodyl (Dulcolax Supp) 10 mg PRN DAILY PRN [place] CONSTIPATION; Start 03/03/20 at 09:45 Bisacodyl (Dulcolax Tab) 10 mg PRN DAILY PRN PO CONSTIPATION Last administered on 03/03/20at 13:47; Start 03/03/20 at 09:45 Psyllium Hydrophilic Mucilloid (Metamucil Fiber Packet) 1 pkt QHS PO Last administered on 03/03/20at 20:36; Start 03/03/20 at 21:00 Polyethylene Glycol (miraLAX PACKET) 17 gm QHS PO Last administered on 03/03/20at 20:36; Start 03/03/20 at 21:00 Docusate Sodium (Colace) 100 mg DAILY PO Last administered on 03/03/20at 13:48; Start 03/03/20 at 12:00 Amino Acids/ Glycerin/ Electrolytes 1,000 ml @ 80 mls/hr [id number] IV Last administered on 03/04/20at 05:04; Start 03/03/20 at 15:00 Furosemide (Lasix) 40 mg 1X ONCE IVP Last administered on 03/03/20at 16:48; Start 03/03/20 at 15:00; Stop 03/03/20 at 15:01; Status DC Iohexol (Omnipaque 300 Mg/ml) 75 ml 1X ONCE IV Last administered on 03/03/20at 16:33; Start 03/03/20 at 16:15; Stop 03/03/20 at 16:16; Status DC Info (CONTRAST GIVEN -- Rx MONITORING) 1 each PRN DAILY PRN MC SEE COMMENTS; Start 03/03/20 at 16:15; Stop 03/05/20 at 16:14 Active Scripts Active Reported Flomax (Tamsulosin Hcl) 0.4 Mg Cap.er.24h 1 Cap PO QHS Vitals/I & O Vital Sign - Last 24 Hours 03/03/20 03/03/20 03/03/20 03/03/20 11:00 15:00 16:48 17:55 Temp 97.3 97.4 97.3 97.4 Pulse 96 101 97 102 Resp 17 16 B/P (MAP) 120/81 (94) 121/80 (94) 126/83 (97) 119/85 (96) Pulse Ox 98 96 O2 Delivery Room Air Room Air 03/03/20 03/03/20 03/03/20 03/04/20 19:45 20:17 23:41 03:52 Temp 97.4 97.7 97.7 97.4 97.7 97.7 Pulse 104 103 105 Resp 21 21 21 B/P (MAP) 122/89 (100) 105/74 (84) 130/78 (95) Pulse Ox 98 92 96 O2 Delivery Room Air Room Air Room Air Room Air 03/04/20 07:00 Temp 98.4 98.4 Pulse 103 Resp 16 B/P (MAP) 113/80 (91) Pulse Ox 98 O2 Delivery Room Air Intake and Output 03/03/20 03/03/20 03/04/20 15:00 23:00 07:00 Intake Total 120 ml 0 ml Output Total 300 ml 1175 ml 1300 ml Balance -300 ml -1055 ml -1300 ml RAIN CRYSTAL MD Mar 04, 2020 08:42
[2020-03-04] MEDS: POLYETHYLENE GLYCOL 3350 17 GM PACKET. PO SCH ×2 (09:21→21:03)
[2020-03-04] MEDS: DOCUSATE SODIUM 100 MG CAPSULE. PO SCH (09:21)
[2020-03-04] MEDS ORDERED: BISACODYL 10 MG SUPP.RECT. PR ONE (10:00)
[2020-03-04 11:00] VITALS: BP 127/83
--- NOTE | 2020-03-04 11:53 | PDOC ---
Renal-Progress Notes Subjective Notes Notes NO NEW COMPLAINTS History of Present Illness Hx of present illness STABLE Vitals Vitals Vital Signs Date Time Temp Pulse Resp B/P (MAP) Pulse Ox O2 Delivery O2 Flow Rate FiO2 03/04/20 11:00 97.7 106 16 127/83 (98) 96 Room Air 97.7 Weight Weight [ ] I.O. Intake and Output Intake and Output 03/04/20 07:00 Intake Total 120 ml Output Total 2775 ml Balance -2655 ml Intake Oral 120 ml Output Urine Total 2775 ml # Bowel Movements 1 Labs Labs Laboratory Tests Test 03/04/20 03:45 Sodium Level 132 mmol/L (136-145) Potassium Level 3.8 mmol/L (3.5-5.1) Chloride Level 100 mmol/L (98-107) Carbon Dioxide Level 24 mmol/L (21-32) Anion Gap 8 (6-14) Blood Urea Nitrogen 26 mg/dL (8-26) Creatinine 0.8 mg/dL (0.7-1.3) Estimated GFR (Cockcroft-Gault) 95.3 Glucose Level 77 mg/dL (70-99) Calcium Level 6.6 mg/dL (8.5-10.1) Magnesium Level 2.0 mg/dL (1.8-2.4) Micro Micro Microbiology 03/02/20 Urine Culture - Final, Complete Review of Systems Constitutional: yes: weakness, alert, oriented Ears/Nose/Throat: Yes: no symptom reported Eyes: Yes: no symptom reported Pulmonary: Yes no symptom reported Cardiovascular: Yes edema Gastrointestional: Yes: no symptom reported Genitourinary: Yes: no symptom reported Musculoskeletal: Yes: no symptom reported Skin: Yes no symptom reported Psychiatric/Neurological: Yes: no symptom reported Endocrine: Yes: no symptom reported Physical Exam General Appearance: no apparent distress Skin: warm Respiratory: bilateral CTA Heart: S1S2 Abdomen: soft, bowel sounds present Genitourinary: bladder flat Extremities: edema Neurology: alert, oriented Assessment Assessment IMP HYPONATREMIA-IMPROVED DEHYDRATION-N/V/DIARRHEA WT LOSS SBO COLON MASS ANEMIA IRON DEFICIENCY HX OF PROSTATE CA BPH ON FLOMAX LE EDEMA PLAN PPN FOR NOW IV LASIX ONCE URINE STUDIES PENDING SURGERY EVAL AND TX WILL FOLLOW DONNIE BERMEO MD Mar 04, 2020 11:53
--- NOTE | 2020-03-04 11:56 | PDOC ---
SURGICAL PROGRESS NOTE Subjective Pt without new c/o, unable to tolerate any PO without N/V. Did have some stools. Note much pain. Vital Signs Vital Signs Date Time Temp Pulse Resp B/P (MAP) Pulse Ox O2 Delivery O2 Flow Rate FiO2 03/04/20 11:00 97.7 106 16 127/83 (98) 96 Room Air 97.7 I&O Intake and Output 03/04/20 07:00 Intake Total 120 ml Output Total 2775 ml Balance -2655 ml Intake Oral 120 ml Output Urine Total 2775 ml # Bowel Movements 1 General: Alert, Oriented X3, Cooperative, No acute distress Abdomen: Soft, No tenderness Labs Laboratory Tests Test 03/02/20 15:07 03/02/20 18:10 03/03/20 11:10 03/04/20 03:45 White Blood Count 12.1 x10^3/uL (4.0-11.0) Red Blood Count 4.37 x10^6/uL (4.30-5.70) Hemoglobin 9.8 g/dL (13.0-17.5) Hematocrit 31.3 % (39.0-53.0) Mean Corpuscular Volume 72 fL (79-100) Mean Corpuscular Hemoglobin 22 pg (25-35) Mean Corpuscular Hemoglobin Concent 31 g/dL (31-37) Red Cell Distribution Width 30.9 % (11.5-14.5) Platelet Count 391 x10^3/uL (140-400) Neutrophils (%) (Auto) 85 % (31-73) Lymphocytes (%) (Auto) 4 % (24-48) Monocytes (%) (Auto) 11 % (0-9) Eosinophils (%) (Auto) 0 % (0-3) Basophils (%) (Auto) 0 % (0-3) Neutrophils # (Auto) 10.4 x10^3/uL (1.8-7.7) Lymphocytes # (Auto) 0.4 x10^3/uL (1.0-4.8) Monocytes # (Auto) 1.3 x10^3/uL (0.0-1.1) Eosinophils # (Auto) 0.0 x10^3/uL (0.0-0.7) Basophils # (Auto) 0.0 x10^3/uL (0.0-0.2) Segmented Neutrophils % 78 % (35-66) Band Neutrophils % 17 % (0-9) Lymphocytes % 2 % (24-48) Monocytes % 3 % (0-10) Platelet Estimate Adequate (ADEQUATE) Hypochromasia Mod Anisocytosis Marked Microcytosis Mod Macrocytosis Slight Prothrombin Time 16.5 SEC (11.7-14.0) Prothromb Time International Ratio 1.4 (0.8-1.1) Activated Partial Thromboplast Time 36 SEC (24-38) Sodium Level 130 mmol/L (136-145) 132 mmol/L (136-145) Potassium Level 4.4 mmol/L (3.5-5.1) 3.8 mmol/L (3.5-5.1) Chloride Level 99 mmol/L (98-107) 100 mmol/L (98-107) Carbon Dioxide Level 21 mmol/L (21-32) 24 mmol/L (21-32) Anion Gap 10 (6-14) 8 (6-14) Blood Urea Nitrogen 33 mg/dL (8-26) 26 mg/dL (8-26) Creatinine 0.9 mg/dL (0.7-1.3) 0.8 mg/dL (0.7-1.3) Estimated GFR (Cockcroft-Gault) 83.2 95.3 BUN/Creatinine Ratio 37 (6-20) Glucose Level 90 mg/dL (70-99) 77 mg/dL (70-99) Calcium Level 7.1 mg/dL (8.5-10.1) 6.6 mg/dL (8.5-10.1) Magnesium Level 2.1 mg/dL (1.8-2.4) 2.0 mg/dL (1.8-2.4) Iron Level 36 ug/dL (65-175) Total Iron Binding Capacity 125 ug/dL (250-450) Iron Saturation 29 % (15-34) Total Bilirubin 0.6 mg/dL (0.2-1.0) Aspartate Amino Transf (AST/SGOT) 30 U/L (15-37) Alanine Aminotransferase (ALT/SGPT) 25 U/L (16-63) Alkaline Phosphatase 157 U/L (46-116) Troponin I Quantitative 0.017 ng/mL (0.000-0.055) LW-Scg-E-Type Natriuretic Peptide 350 pg/mL (0-124) Total Protein 5.4 g/dL (6.4-8.2) Albumin 1.5 g/dL (3.4-5.0) Albumin/Globulin Ratio 0.4 (1.0-1.7) Lipase 90 U/L (73-393) Vitamin B12 Level 837 pg/mL (247-911) Thyroid Stimulating Hormone (TSH) 2.217 uIU/mL (0.358-3.74) Urine Collection Type Unknown Urine Color Yellow Urine Clarity Clear Urine pH 5.5 (<5.0-8.0) Urine Specific [place] >=1.030 (1.000-1.030) Urine Protein Negative mg/dL (NEG-TRACE) Urine Glucose (UA) Negative mg/dL (NEG) Urine Ketones (Stick) 40 mg/dL (NEG) Urine Blood Negative (NEG) Urine Nitrite Negative (NEG) Urine Bilirubin Large (NEG) Urine Urobilinogen Dipstick 2.0 mg/dL (0.2 mg/dL) Urine Leukocyte Esterase Small (NEG) Urine RBC 0 /HPF (0-2) Urine WBC 11-20 /HPF (0-4) Urine Bacteria 0 /HPF (0-FEW) Urine Hyaline Casts Moderate /HPF Urine Mucus Marked /LPF Coronavirus (COVID-19)(PCR) Negative (NEGATIVE) Laboratory Tests Test 03/04/20 03:45 Sodium Level 132 mmol/L (136-145) Potassium Level 3.8 mmol/L (3.5-5.1) Chloride Level 100 mmol/L (98-107) Carbon Dioxide Level 24 mmol/L (21-32) Anion Gap 8 (6-14) Blood Urea Nitrogen 26 mg/dL (8-26) Creatinine 0.8 mg/dL (0.7-1.3) Estimated GFR (Cockcroft-Gault) 95.3 Glucose Level 77 mg/dL (70-99) Calcium Level 6.6 mg/dL (8.5-10.1) Magnesium Level 2.0 mg/dL (1.8-2.4) Problem List Problems Medical Problems: (1) Anemia Status: Acute (2) Colonic mass Status: Acute (3) Fatigue Status: Acute (4) Hypocalcemia Status: Acute (5) Nausea & vomiting Status: Acute (6) SBO (small bowel obstruction) Status: Acute Assessment/Plan obstructing colon mass will proceed with gentle bowel cathartic plan open right colon resection in AM with cholecystectomy with cholangiogram. R/B/A d/w pt. Risks, including but not limited to: bleeding, infection, damage to surrounding structures, risk of anesthesia, risk of anastomotic leak. He is poor surgical candidate , given severe malnutrition, but givne malignant obstruction, best served by intervention. He appears to understand, his questions are answered and he elects to proceed. Justicifation of Admission Dx: Justifications for Admission: Justification of Admission Dx: Yes MEGAN WILLIAMSON MD Mar 04, 2020 11:56
[2020-03-04 15:00] VITALS: BP 123/85
[2020-03-04] MEDS ORDERED: LIDOCAINE (700MG/PATCH) PATCH. TD SCH (16:30)
[2020-03-04 19:40] VITALS: BP 108/81
[2020-03-04] MEDS ORDERED: PATCH REMOVAL. MC SCH (21:00)
[2020-03-04] MEDS: TAMSULOSIN 0.4 MG CAP.ER.24H. PO SCH (21:03)
[2020-03-04] MEDS: PSYLLIUM HUSK (SUGAR FREE) 1 PKT PACKET PO SCH (21:03)
[2020-03-04 22:52] LABS: BASO % 0 % (0-3); EOS % 0 % (0-3); HEMATOCRIT 29.9 % (39.0-53.0); HEMOGLOBIN 9.3 g/dL (13.0-17.5); LYMPH # 0.5 x10^3/uL (1.0-4.8); LYMPH % 4 % (24-48); MEAN CORPUSCULAR HEMOGLOBIN 22 pg (25-35); MEAN CORPUSCULAR HGB CONC 31 g/dL (31-37); MEAN CORPUSCULAR VOLUME 71 fL (79-100); MONO # 1.3 x10^3/uL (0.0-1.1); MONO % 11 % (0-9); NEUT # 9.6 x10^3/uL (1.8-7.7); NEUT % 85 % (31-73); PLATELET COUNT 347 x10^3/uL (140-400); RED CELL DISTRIBUTION WIDTH 31.9 % (11.5-14.5); WHITE BLOOD COUNT 11.4 x10^3/uL (4.0-11.0)
[2020-03-04 23:00] VITALS: BP 104/74
[2020-03-05] VITALS (16 sets, daily range): BP systolic 46–126; BP diastolic 36–72
[2020-03-05 05:01] LABS: BASO % 0 % (0-3); EOS % 0 % (0-3); HEMATOCRIT 29.4 % (39.0-53.0); HEMOGLOBIN 9.2 g/dL (13.0-17.5); LYMPH # 0.6 x10^3/uL (1.0-4.8); LYMPH % 5 % (24-48); MEAN CORPUSCULAR HEMOGLOBIN 22 pg (25-35); MEAN CORPUSCULAR HGB CONC 31 g/dL (31-37); MEAN CORPUSCULAR VOLUME 71 fL (79-100); MONO # 1.2 x10^3/uL (0.0-1.1); MONO % 10 % (0-9); NEUT # 9.5 x10^3/uL (1.8-7.7); NEUT % 85 % (31-73); PLATELET COUNT 377 x10^3/uL (140-400); RED BLOOD COUNT 4.12 x10^6/uL (4.30-5.70); WHITE BLOOD COUNT 11.2 x10^3/uL (4.0-11.0)
[2020-03-05 05:28] LABS: ALBUMIN 1.2 g/dL (3.4-5.0); ALBUMIN/GLOBULIN RATIO 0.3 (1.0-1.7); CALCIUM 6.6 mg/dL (8.5-10.1); CREATININE 0.7 mg/dL (0.7-1.3); GFR 111.2; TOTAL BILIRUBIN 0.5 mg/dL (0.2-1.0); TOTAL PROTEIN 4.7 g/dL (6.4-8.2)
[2020-03-05] MEDS ORDERED: IV RINGERS,LACTATED 1000ML 1,000 ML IV SCH (07:05)
[2020-03-05] MEDS ORDERED: HYDROmorphone 2 MG/ML VIAL IVP PRN (07:15)
[2020-03-05] MEDS ORDERED: PROCHLORPERAZINE 10 MG/2 ML VIAL. IVP PRN (07:15)
[2020-03-05] MEDS ORDERED: ONDANSETRON PF 4 MG/2 ML VIAL. IVP PRN ×2 (07:15→16:15)
[2020-03-05] MEDS ORDERED: LIDOCAINE 1% PF 2 ML VIAL. ID PRN (07:15)
[2020-03-05] MEDS ORDERED: fentaNYL PF VIAL 100 MCG/2 ML VIAL IVP PRN ×2 (07:15)
[2020-03-05] MEDS ORDERED: MORPHINE SULFATE 2 MG/ML VIAL. IVP PRN (07:15)
--- NOTE | 2020-03-05 09:56 | PDOC ---
PROGRESS NOTES Chief Complaint Chief Complaint IMPRESSION Nausea Vomiting Fatigue Weight Loss Small bowel dilatation/obstruction suspicious for primary colon cancer 10.5cm mass with surrounding lymph nodes concerning for metastatic disease 10.5 cm colonic mass. Colonic mass abuts the right hepatic lobe inferior margin as well as the duodenum and anterior right kidney (extending through or deforming Gerota's fascia), suspicious for primary colon cancer. Prominent associated lymph nodes are seen, possibly metastatic Dialated Appendix fatty liver dz Gallstones Microcytic Anemia Alkaline Phosphatemia Hyponatremia Mild Leukocytosis Tachycardia H/o prostate cancer in remission Severe protein calorie malnutrition LE edema - BNP of 350, no cardiac history and no symptoms of CHF. This is unlikely to be cardiac related at all. Likely likely lymphatic obstruction due to abdominal mass. Hyponatremia - likely due to poor PO intake FEN - NPO vent support post=op 36 min cc time History of Present Illness History of Present Illness Mr Claudio is a 69 yo CM hx of prostate cancer s/p radiation, HTN, prediabetes now off meds who presents with vomiting fatigue diarrhea weight loss and decreased appetite for 1 month. He went to see his PCP because over the past week he had sudden onset lower extremity edema, patient had labs drawn as outpatient and called by PCP to go to the hospital for a blood transfusion and treatment for CHF. No history of CHF. On ROS he just notes his bones feel heavy. He also notes over the past 2 months sometimes he will choke on food and vomited up. His last bowel movement was 2 days ago and it was diarrhea. He has not been able to eat very well. He just feels tired. He stopped smoking over 25 years ago and he only did smoke cigars at that time. With regard to his prostate cancer he states that he had 43 radiation treatments and had a PET scan at the end of 2019 and was told he is in remission. He has never had a colonoscopy. in ED patient found to have hb of 9.8. na 130. noted to be tachy with HR 110. Patient lives with 101 year old mom. His mother has history of stage III colon cancer diagnosed at age 76. His brother has history of prostate cancer, father of lung cancer. Ct abdomen in ED revealed: 1. Small bowel dilatation/obstruction to the level of a 10.5 cm colonic mass. Colonic mass abuts the right hepatic lobe inferior margin as well as the duodenum and anterior right kidney (extending through or deforming Gerota's fascia), suspicious for primary colon cancer. Prominent associated lymph nodes are seen, possibly metastatic. Otherwise no abdominal or pelvic lymphadenopathy. 2. The appendix is dilated with infiltration mostly at the base. Although this may secondary dilation from obstruction from the colonic mass, acute appendicitis cannot be excluded but is felt to be less likely. 3. Hepatic hypoattenuation likely fatty liver. 4. Small gallstone is seen within the gallbladder 03/05: He has some nausea, he is worried about his mother going into hospice. Afebrile. NA 132. Started on PPN. Given Lasix with improvement in his edema. No chest pain or shortness of breath, a lot of weakness and says he feels weak in his bones. 2x BM overnight OPERATIVE NOTE Date: Date: Mar 05, 2020 Pre-Op Diagnosis: Obstructing right colon cancer Post-Op Diagnosis: same, perforated and invading duodenum Procedure Performed: Open right colon resection, partial resection of duodenum, placement of duodenostomy tube, cholecystectomy with cholangiogram, ghost ileostomy Surgeon: Juve Goss Anesthesia Type: GETA plus local Blood Loss: 250 Specimans Obtained: right colon, gallbladder Findings: Large, obstructing mass at hepatic flexure with perforation into retroperitoneum and duodenum, gallstone, normal cholangiogram Complications: Vitals Vitals Vital Signs Date Time Temp Pulse Resp B/P (MAP) Pulse Ox O2 Delivery O2 Flow Rate FiO2 03/05/20 08:00 Room Air 03/05/20 07:00 97.3 118 20 96/72 (80) 91 97.3 Physical Exam General: Alert, Oriented X3, Cooperative, No acute distress Heart: Regular rate, Normal S2 Lungs: Clear Abdomen: Soft, No tenderness Extremities: No clubbing, No cyanosis Skin: No breakdown, No significant lesion Labs LABS Laboratory Tests Test 03/04/20 22:45 03/05/20 03:45 White Blood Count 11.4 x10^3/uL (4.0-11.0) 11.2 x10^3/uL (4.0-11.0) Red Blood Count 4.20 x10^6/uL (4.30-5.70) 4.12 x10^6/uL (4.30-5.70) Hemoglobin 9.3 g/dL (13.0-17.5) 9.2 g/dL (13.0-17.5) Hematocrit 29.9 % (39.0-53.0) 29.4 % (39.0-53.0) Mean Corpuscular Volume 71 fL (79-100) 71 fL (79-100) Mean Corpuscular Hemoglobin 22 pg (25-35) 22 pg (25-35) Mean Corpuscular Hemoglobin Concent 31 g/dL (31-37) 31 g/dL (31-37) Red Cell Distribution Width 31.9 % (11.5-14.5) 32.0 % (11.5-14.5) Platelet Count 347 x10^3/uL (140-400) 377 x10^3/uL (140-400) Neutrophils (%) (Auto) 85 % (31-73) 85 % (31-73) Lymphocytes (%) (Auto) 4 % (24-48) 5 % (24-48) Monocytes (%) (Auto) 11 % (0-9) 10 % (0-9) Eosinophils (%) (Auto) 0 % (0-3) 0 % (0-3) Basophils (%) (Auto) 0 % (0-3) 0 % (0-3) Neutrophils # (Auto) 9.6 x10^3/uL (1.8-7.7) 9.5 x10^3/uL (1.8-7.7) Lymphocytes # (Auto) 0.5 x10^3/uL (1.0-4.8) 0.6 x10^3/uL (1.0-4.8) Monocytes # (Auto) 1.3 x10^3/uL (0.0-1.1) 1.2 x10^3/uL (0.0-1.1) Eosinophils # (Auto) 0.0 x10^3/uL (0.0-0.7) 0.0 x10^3/uL (0.0-0.7) Basophils # (Auto) 0.0 x10^3/uL (0.0-0.2) 0.0 x10^3/uL (0.0-0.2) Sodium Level 132 mmol/L (136-145) Potassium Level 4.0 mmol/L (3.5-5.1) Chloride Level 100 mmol/L (98-107) Carbon Dioxide Level 23 mmol/L (21-32) Anion Gap 9 (6-14) Blood Urea Nitrogen 39 mg/dL (8-26) Creatinine 0.7 mg/dL (0.7-1.3) Estimated GFR (Cockcroft-Gault) 111.2 BUN/Creatinine Ratio 56 (6-20) Glucose Level 92 mg/dL (70-99) Calcium Level 6.6 mg/dL (8.5-10.1) Total Bilirubin 0.5 mg/dL (0.2-1.0) Aspartate Amino Transf (AST/SGOT) 26 U/L (15-37) Alanine Aminotransferase (ALT/SGPT) 28 U/L (16-63) Alkaline Phosphatase 197 U/L (46-116) Total Protein 4.7 g/dL (6.4-8.2) Albumin 1.2 g/dL (3.4-5.0) Albumin/Globulin Ratio 0.3 (1.0-1.7) Assessment and Plan Assessmemt and Plan Problems Medical Problems: (1) Anemia Status: Acute (2) Colonic mass Status: Acute (3) Fatigue Status: Acute (4) Hypocalcemia Status: Acute (5) Nausea & vomiting Status: Acute (6) SBO (small bowel obstruction) Status: Acute Comment Review of Relevant I have reviewed the following items radhames (where applicable) has been applied. Labs Laboratory Tests Test 03/03/20 11:10 03/04/20 03:45 03/04/20 22:45 03/05/20 03:45 Coronavirus (COVID-19)(PCR) Negative (NEGATIVE) Sodium Level 132 mmol/L (136-145) 132 mmol/L (136-145) Potassium Level 3.8 mmol/L (3.5-5.1) 4.0 mmol/L (3.5-5.1) Chloride Level 100 mmol/L (98-107) 100 mmol/L (98-107) Carbon Dioxide Level 24 mmol/L (21-32) 23 mmol/L (21-32) Anion Gap 8 (6-14) 9 (6-14) Blood Urea Nitrogen 26 mg/dL (8-26) 39 mg/dL (8-26) Creatinine 0.8 mg/dL (0.7-1.3) 0.7 mg/dL (0.7-1.3) Estimated GFR (Cockcroft-Gault) 95.3 111.2 Glucose Level 77 mg/dL (70-99) 92 mg/dL (70-99) Calcium Level 6.6 mg/dL (8.5-10.1) 6.6 mg/dL (8.5-10.1) Magnesium Level 2.0 mg/dL (1.8-2.4) White Blood Count 11.4 x10^3/uL (4.0-11.0) 11.2 x10^3/uL (4.0-11.0) Red Blood Count 4.20 x10^6/uL (4.30-5.70) 4.12 x10^6/uL (4.30-5.70) Hemoglobin 9.3 g/dL (13.0-17.5) 9.2 g/dL (13.0-17.5) Hematocrit 29.9 % (39.0-53.0) 29.4 % (39.0-53.0) Mean Corpuscular Volume 71 fL (79-100) 71 fL (79-100) Mean Corpuscular Hemoglobin 22 pg (25-35) 22 pg (25-35) Mean Corpuscular Hemoglobin Concent 31 g/dL (31-37) 31 g/dL (31-37) Red Cell Distribution Width 31.9 % (11.5-14.5) 32.0 % (11.5-14.5) Platelet Count 347 x10^3/uL (140-400) 377 x10^3/uL (140-400) Neutrophils (%) (Auto) 85 % (31-73) 85 % (31-73) Lymphocytes (%) (Auto) 4 % (24-48) 5 % (24-48) Monocytes (%) (Auto) 11 % (0-9) 10 % (0-9) Eosinophils (%) (Auto) 0 % (0-3) 0 % (0-3) Basophils (%) (Auto) 0 % (0-3) 0 % (0-3) Neutrophils # (Auto) 9.6 x10^3/uL (1.8-7.7) 9.5 x10^3/uL (1.8-7.7) Lymphocytes # (Auto) 0.5 x10^3/uL (1.0-4.8) 0.6 x10^3/uL (1.0-4.8) Monocytes # (Auto) 1.3 x10^3/uL (0.0-1.1) 1.2 x10^3/uL (0.0-1.1) Eosinophils # (Auto) 0.0 x10^3/uL (0.0-0.7) 0.0 x10^3/uL (0.0-0.7) Basophils # (Auto) 0.0 x10^3/uL (0.0-0.2) 0.0 x10^3/uL (0.0-0.2) BUN/Creatinine Ratio 56 (6-20) Total Bilirubin 0.5 mg/dL (0.2-1.0) Aspartate Amino Transf (AST/SGOT) 26 U/L (15-37) Alanine Aminotransferase (ALT/SGPT) 28 U/L (16-63) Alkaline Phosphatase 197 U/L (46-116) Total Protein 4.7 g/dL (6.4-8.2) Albumin 1.2 g/dL (3.4-5.0) Albumin/Globulin Ratio 0.3 (1.0-1.7) Laboratory Tests Test 03/04/20 22:45 03/05/20 03:45 White Blood Count 11.4 x10^3/uL (4.0-11.0) 11.2 x10^3/uL (4.0-11.0) Red Blood Count 4.20 x10^6/uL (4.30-5.70) 4.12 x10^6/uL (4.30-5.70) Hemoglobin 9.3 g/dL (13.0-17.5) 9.2 g/dL (13.0-17.5) Hematocrit 29.9 % (39.0-53.0) 29.4 % (39.0-53.0) Mean Corpuscular Volume 71 fL (79-100) 71 fL (79-100) Mean Corpuscular Hemoglobin 22 pg (25-35) 22 pg (25-35) Mean Corpuscular Hemoglobin Concent 31 g/dL (31-37) 31 g/dL (31-37) Red Cell Distribution Width 31.9 % (11.5-14.5) 32.0 % (11.5-14.5) Platelet Count 347 x10^3/uL (140-400) 377 x10^3/uL (140-400) Neutrophils (%) (Auto) 85 % (31-73) 85 % (31-73) Lymphocytes (%) (Auto) 4 % (24-48) 5 % (24-48) Monocytes (%) (Auto) 11 % (0-9) 10 % (0-9) Eosinophils (%) (Auto) 0 % (0-3) 0 % (0-3) Basophils (%) (Auto) 0 % (0-3) 0 % (0-3) Neutrophils # (Auto) 9.6 x10^3/uL (1.8-7.7) 9.5 x10^3/uL (1.8-7.7) Lymphocytes # (Auto) 0.5 x10^3/uL (1.0-4.8) 0.6 x10^3/uL (1.0-4.8) Monocytes # (Auto) 1.3 x10^3/uL (0.0-1.1) 1.2 x10^3/uL (0.0-1.1) Eosinophils # (Auto) 0.0 x10^3/uL (0.0-0.7) 0.0 x10^3/uL (0.0-0.7) Basophils # (Auto) 0.0 x10^3/uL (0.0-0.2) 0.0 x10^3/uL (0.0-0.2) Sodium Level 132 mmol/L (136-145) Potassium Level 4.0 mmol/L (3.5-5.1) Chloride Level 100 mmol/L (98-107) Carbon Dioxide Level 23 mmol/L (21-32) Anion Gap 9 (6-14) Blood Urea Nitrogen 39 mg/dL (8-26) Creatinine 0.7 mg/dL (0.7-1.3) Estimated GFR (Cockcroft-Gault) 111.2 BUN/Creatinine Ratio 56 (6-20) Glucose Level 92 mg/dL (70-99) Calcium Level 6.6 mg/dL (8.5-10.1) Total Bilirubin 0.5 mg/dL (0.2-1.0) Aspartate Amino Transf (AST/SGOT) 26 U/L (15-37) Alanine Aminotransferase (ALT/SGPT) 28 U/L (16-63) Alkaline Phosphatase 197 U/L (46-116) Total Protein 4.7 g/dL (6.4-8.2) Albumin 1.2 g/dL (3.4-5.0) Albumin/Globulin Ratio 0.3 (1.0-1.7) Microbiology 03/02/20 Urine Culture - Final, Complete Medications Current Medications Sodium Chloride 1,000 ml @ 1,000 mls/hr 1X ONCE IV Last administered on 03/02/20at 17:05; Start 03/02/20 at 16:45; Stop 03/02/20 at 17:44; Status DC Calcium Gluconate (Calcium Gluconate) 1,000 mg 1X ONCE IVP Last administered on 03/02/20at 18:21; Start 03/02/20 at 18:15; Stop 03/02/20 at 18:18; Status DC Iohexol (Omnipaque 300 Mg/ml) 75 ml 1X ONCE IV Last administered on 03/02/20at 18:34; Start 03/02/20 at 18:30; Stop 03/02/20 at 18:31; Status DC Pantoprazole Sodium (PROTONIX VIAL for IV PUSH) 40 mg 1X ONCE IVP Last administered on 03/02/20at 18:41; Start 03/02/20 at 18:45; Stop 03/02/20 at 18:46; Status DC Sodium Chloride 1,000 ml @ 100 mls/hr 1X ONCE IV Last administered on 03/02/20at 19:04; Start 03/02/20 at 18:45; Stop 03/03/20 at 04:44; Status DC Enoxaparin Sodium (Lovenox Per Pharmacy Prophylaxis Dosing) 1 each PRN DAILY PRN MC SEE COMMENTS; Start 03/02/20 at 20:30; Status Cancel Enoxaparin Sodium (Lovenox 40mg Syringe) 40 mg Q24H SQ Last administered on 03/02/20at 23:48; Start 03/02/20 at 21:00; Stop 03/03/20 at 08:48; Status DC Tamsulosin HCl (Flomax) 0.4 mg HS PO Last administered on 03/04/20at 21:03; Start 03/02/20 at 23:45 Sodium Chloride 1,000 ml @ 100 mls/hr Q10H IV Last administered on 03/03/20at 11:07; Start 03/03/20 at 10:00; Stop 03/03/20 at 14:58; Status DC Ondansetron HCl (Zofran) 4 mg PRN Q4HRS PRN IV NAUSEA/VOMITING Last administered on 03/04/20 22:31; Start 03/03/20 at 09:45 Acetaminophen (Tylenol Supp) 650 mg PRN Q4HRS PRN DC TEMP OVER 100.4F OR MILD PAIN; Start 03/03/20 at 09:45 Polyethylene Glycol (miraLAX PACKET) 17 gm DAILY PO Last administered on 03/04/20at 09:21; Start 03/03/20 at 10:00 Bisacodyl (Dulcolax Supp) 10 mg PRN DAILY PRN DC CONSTIPATION; Start 03/03/20 at 09:45 Bisacodyl (Dulcolax Tab) 10 mg PRN DAILY PRN PO CONSTIPATION Last administered on 03/03/20at 13:47; Start 03/03/20 at 09:45 Psyllium Hydrophilic Mucilloid (Metamucil Fiber Packet) 1 pkt QHS PO Last administered on 03/04/20at 21:03; Start 03/03/20 at 21:00 Polyethylene Glycol (miraLAX PACKET) 17 gm QHS PO Last administered on 03/04/20at 21:03; Start 03/03/20 at 21:00 Docusate Sodium (Colace) 100 mg DAILY PO Last administered on 03/04/20 09:21; Start 03/03/20 at 12:00 Amino Acids/ Glycerin/ Electrolytes 1,000 ml @ 80 mls/hr [id number] IV Last administered on 03/04/20at 17:59; Start 03/03/20 at 15:00 Furosemide (Lasix) 40 mg 1X ONCE IVP Last administered on 03/03/20at 16:48; Start 03/03/20 at 15:00; Stop 03/03/20 at 15:01; Status DC Iohexol (Omnipaque 300 Mg/ml) 75 ml 1X ONCE IV Last administered on 03/03/20at 16:33; Start 03/03/20 at 16:15; Stop 03/03/20 at 16:16; Status DC Info (CONTRAST GIVEN -- Rx MONITORING) 1 each PRN DAILY PRN MC SEE COMMENTS; Start 03/03/20 at 16:15; Stop 03/05/20 at 16:14 Bisacodyl (Dulcolax Supp) 10 mg 1X ONCE DC Last administered on 03/04/20at 12:18; Start 03/04/20 at 10:00; Stop 03/04/20 at 10:05; Status DC Cefoxitin Sodium (Mefoxin) 2 gm 1X PREOP IVP ; Start 03/05/20 at 10:00 Lidocaine (Lidoderm) 1 patch DAILY TD ; Start 03/04/20 at 16:30; Status Cancel Miscellaneous (Lidoderm Patch Removal) 1 ea QHS MC ; Start 03/04/20 at 21:00; Status Cancel Ondansetron HCl (Zofran) 4 mg PRN Q6HRS PRN IVP NAUSEA/VOMITING; Start 03/05/20 at 07:15; Stop 03/05/20 at 20:00 Fentanyl Citrate (Fentanyl 2ml Vial) 25 mcg PRN Q5MIN PRN IVP MILD PAIN 1-3; Start 03/05/20 at 07:15; Stop 03/05/20 at 20:00 Fentanyl Citrate (Fentanyl 2ml Vial) 50 mcg PRN Q5MIN PRN IVP MODERATE TO SEVERE PAIN; Start 03/05/20 at 07:15; Stop 03/05/20 at 20:00 Morphine Sulfate (Morphine Sulfate) 1 mg PRN Q10MIN PRN IVP SEVERE PAIN 7-10; Start 03/05/20 at 07:15; Stop 03/05/20 at 20:00 Ringer's Solution 1,000 ml @ 30 mls/hr Q24H IV ; Start 03/05/20 at 07:05; Stop 03/05/20 at 19:04 Lidocaine HCl (Xylocaine-Mpf 1% 2ml Vial) 2 ml 1X PRN PRN ID IV START; Start 03/05/20 at 07:15; Stop 03/05/20 at 20:00 Hydromorphone HCl (Dilaudid) 0.5 mg PRN Q10MIN PRN IVP SEV PAIN, Second choice; Start 03/05/20 at 07:15; Stop 03/05/20 at 20:00 Prochlorperazine Edisylate (Compazine) 5 mg PACU PRN PRN IVP NAUSEA, MRX1; Start 03/05/20 at 07:15; Stop 03/06/20 at 07:14 Active Scripts Active Reported Flomax (Tamsulosin Hcl) 0.4 Mg Cap.er.24h 1 Cap PO QHS Vitals/I & O Vital Sign - Last 24 Hours 03/04/20 03/04/20 03/04/20 03/04/20 11:00 15:00 19:40 20:00 Temp 97.7 97.6 97.7 97.7 97.6 97.7 Pulse 106 109 107 Resp 16 16 20 B/P (MAP) 127/83 (98) 123/85 (98) 108/81 (90) Pulse Ox 96 95 96 O2 Delivery Room Air Room Air Room Air Room Air 03/04/20 03/05/20 03/05/20 03/05/20 23:00 03:35 07:00 08:00 Temp 97.8 97.7 97.3 97.8 97.7 97.3 Pulse 114 107 118 Resp 20 18 20 B/P (MAP) 104/74 (84) 96/71 (79) 96/72 (80) Pulse Ox 96 95 91 O2 Delivery Room Air Room Air Room Air Room Air Intake and Output 03/04/20 03/04/20 03/05/20 15:00 23:00 07:00 Intake Total 0 ml 0 ml 0 ml Output Total 300 ml 50 ml 300 ml Balance -300 ml -50 ml -300 ml TRISTIAN PIRES MD Mar 05, 2020 09:56
[2020-03-05] MEDS ORDERED: cefOXitin SODIUM IV Push 2 GM VIAL. IVP SCH (10:00)
--- NOTE | 2020-03-05 10:02 | PDOC ---
Subjective: Subjective: Says he's having surgery today. "Not much" stool, vomited last night, "starting" to have abdominal pain. Objective: Objective: D/w nurse - vomited last night, no report of stool, was confused this morning - said he already had surgery. Vital Signs: Vital Signs Date Time Temp Pulse Resp B/P (MAP) Pulse Ox O2 Delivery O2 Flow Rate FiO2 03/05/20 08:00 Room Air 03/05/20 07:00 97.3 118 20 96/72 (80) 91 97.3 Labs: Laboratory Tests Test 03/04/20 22:45 03/05/20 03:45 White Blood Count 11.4 x10^3/uL 11.2 x10^3/uL Red Blood Count 4.20 x10^6/uL 4.12 x10^6/uL Hemoglobin 9.3 g/dL 9.2 g/dL Hematocrit 29.9 % 29.4 % Mean Corpuscular Volume 71 fL 71 fL Mean Corpuscular Hemoglobin 22 pg 22 pg Mean Corpuscular Hemoglobin Concent 31 g/dL 31 g/dL Red Cell Distribution Width 31.9 % 32.0 % Platelet Count 347 x10^3/uL 377 x10^3/uL Neutrophils (%) (Auto) 85 % 85 % Lymphocytes (%) (Auto) 4 % 5 % Monocytes (%) (Auto) 11 % 10 % Eosinophils (%) (Auto) 0 % 0 % Basophils (%) (Auto) 0 % 0 % Neutrophils # (Auto) 9.6 x10^3/uL 9.5 x10^3/uL Lymphocytes # (Auto) 0.5 x10^3/uL 0.6 x10^3/uL Monocytes # (Auto) 1.3 x10^3/uL 1.2 x10^3/uL Eosinophils # (Auto) 0.0 x10^3/uL 0.0 x10^3/uL Basophils # (Auto) 0.0 x10^3/uL 0.0 x10^3/uL Sodium Level 132 mmol/L Potassium Level 4.0 mmol/L Chloride Level 100 mmol/L Carbon Dioxide Level 23 mmol/L Anion Gap 9 Blood Urea Nitrogen 39 mg/dL Creatinine 0.7 mg/dL Estimated GFR (Cockcroft-Gault) 111.2 BUN/Creatinine Ratio 56 Glucose Level 92 mg/dL Calcium Level 6.6 mg/dL Total Bilirubin 0.5 mg/dL Aspartate Amino Transf (AST/SGOT) 26 U/L Alanine Aminotransferase (ALT/SGPT) 28 U/L Alkaline Phosphatase 197 U/L Total Protein 4.7 g/dL Albumin 1.2 g/dL Albumin/Globulin Ratio 0.3 PE: GEN: appears chronically ill LUNGS: CTAB HEART: tachycardic ABD: quiet, soft, doesn't seem tender NEURO/PSYCH: A & O 3 A/P: Colon mass w/ SB dilation/obstruction and lymphadenopathy on CT ACD, elevated Alk Phos, hyponatremia Cholelithiasis, fatty liver - noted on CT COVID-19 negative 03/03 -- Plans for OR today for right colon resection and cholecystectomy/cholangiogram, will follow. Add IV acid-health care law specialist. Justicifation of Admission Dx: Justifications for Admission: Justification of Admission Dx: Yes LONG RIOS Mar 05, 2020 10:02
[2020-03-05] MEDS ORDERED: SUCCINYLCHOLINE 200 MG/10 ML VIAL. ONE (10:23)
[2020-03-05] MEDS ORDERED: ONDANSETRON PF 4 MG/2 ML VIAL. ONE (10:23)
[2020-03-05] MEDS ORDERED: DEXAMETHASONE SOD PHOS 4 MG/ML VIAL ONE (10:23)
[2020-03-05] MEDS ORDERED: PROPOFOL 10 MG/ML (20ML) VIAL. IV ONE (10:23)
[2020-03-05] MEDS ORDERED: LIDOCAINE 2% PF 5 ML VIAL. ONE (10:23)
[2020-03-05] MEDS ORDERED: fentaNYL PF VIAL 100 MCG/2 ML VIAL ONE (10:24)
[2020-03-05] MEDS ORDERED: ROCURONIUM 50 MG/5 ML VIAL. ONE ×2 (10:24→12:27)
[2020-03-05] MEDS ORDERED: IOHEXOL 300 MG/ML 50 ML VIAL. ONE (10:41)
--- NOTE | 2020-03-05 10:41 | PDOC ---
SURGICAL PROGRESS NOTE Subjective Pre-Op Note 69 yo M with obstructing colon cancer. Pt with c/o fatigue this AM and had N/V last night. TO OR for right colon resection and cholecystectomy with cholangiogram. Pt is poor surgical candidate with severe malnutrition and obstructing malignancy, but required OR for any chance of survival. R/R/B/A d/w pt. Risks, including, but not limited to: bleeding, infection, damage to surrounding structures, risk of anesthesia, risk of anastomotic leak, risk of . He appears to understand, his questions are answered and he elects to proceed. Vital Signs Vital Signs Date Time Temp Pulse Resp B/P (MAP) Pulse Ox O2 Delivery O2 Flow Rate FiO2 03/05/20 09:53 97.3 121 15 104/75 98 Room Air 97.3 I&O Intake and Output 03/05/20 07:00 Intake Total 0 ml Output Total 650 ml Balance -650 ml Intake Oral 0 ml Output Urine Total 650 ml # Bowel Movements 1 Labs Laboratory Tests Test 03/03/20 11:10 03/04/20 03:45 03/04/20 22:45 03/05/20 03:45 Coronavirus (COVID-19)(PCR) Negative (NEGATIVE) Sodium Level 132 mmol/L (136-145) 132 mmol/L (136-145) Potassium Level 3.8 mmol/L (3.5-5.1) 4.0 mmol/L (3.5-5.1) Chloride Level 100 mmol/L (98-107) 100 mmol/L (98-107) Carbon Dioxide Level 24 mmol/L (21-32) 23 mmol/L (21-32) Anion Gap 8 (6-14) 9 (6-14) Blood Urea Nitrogen 26 mg/dL (8-26) 39 mg/dL (8-26) Creatinine 0.8 mg/dL (0.7-1.3) 0.7 mg/dL (0.7-1.3) Estimated GFR (Cockcroft-Gault) 95.3 111.2 Glucose Level 77 mg/dL (70-99) 92 mg/dL (70-99) Calcium Level 6.6 mg/dL (8.5-10.1) 6.6 mg/dL (8.5-10.1) Magnesium Level 2.0 mg/dL (1.8-2.4) White Blood Count 11.4 x10^3/uL (4.0-11.0) 11.2 x10^3/uL (4.0-11.0) Red Blood Count 4.20 x10^6/uL (4.30-5.70) 4.12 x10^6/uL (4.30-5.70) Hemoglobin 9.3 g/dL (13.0-17.5) 9.2 g/dL (13.0-17.5) Hematocrit 29.9 % (39.0-53.0) 29.4 % (39.0-53.0) Mean Corpuscular Volume 71 fL (79-100) 71 fL (79-100) Mean Corpuscular Hemoglobin 22 pg (25-35) 22 pg (25-35) Mean Corpuscular Hemoglobin Concent 31 g/dL (31-37) 31 g/dL (31-37) Red Cell Distribution Width 31.9 % (11.5-14.5) 32.0 % (11.5-14.5) Platelet Count 347 x10^3/uL (140-400) 377 x10^3/uL (140-400) Neutrophils (%) (Auto) 85 % (31-73) 85 % (31-73) Lymphocytes (%) (Auto) 4 % (24-48) 5 % (24-48) Monocytes (%) (Auto) 11 % (0-9) 10 % (0-9) Eosinophils (%) (Auto) 0 % (0-3) 0 % (0-3) Basophils (%) (Auto) 0 % (0-3) 0 % (0-3) Neutrophils # (Auto) 9.6 x10^3/uL (1.8-7.7) 9.5 x10^3/uL (1.8-7.7) Lymphocytes # (Auto) 0.5 x10^3/uL (1.0-4.8) 0.6 x10^3/uL (1.0-4.8) Monocytes # (Auto) 1.3 x10^3/uL (0.0-1.1) 1.2 x10^3/uL (0.0-1.1) Eosinophils # (Auto) 0.0 x10^3/uL (0.0-0.7) 0.0 x10^3/uL (0.0-0.7) Basophils # (Auto) 0.0 x10^3/uL (0.0-0.2) 0.0 x10^3/uL (0.0-0.2) BUN/Creatinine Ratio 56 (6-20) Total Bilirubin 0.5 mg/dL (0.2-1.0) Aspartate Amino Transf (AST/SGOT) 26 U/L (15-37) Alanine Aminotransferase (ALT/SGPT) 28 U/L (16-63) Alkaline Phosphatase 197 U/L (46-116) Total Protein 4.7 g/dL (6.4-8.2) Albumin 1.2 g/dL (3.4-5.0) Albumin/Globulin Ratio 0.3 (1.0-1.7) Laboratory Tests Test 03/04/20 22:45 03/05/20 03:45 White Blood Count 11.4 x10^3/uL (4.0-11.0) 11.2 x10^3/uL (4.0-11.0) Red Blood Count 4.20 x10^6/uL (4.30-5.70) 4.12 x10^6/uL (4.30-5.70) Hemoglobin 9.3 g/dL (13.0-17.5) 9.2 g/dL (13.0-17.5) Hematocrit 29.9 % (39.0-53.0) 29.4 % (39.0-53.0) Mean Corpuscular Volume 71 fL (79-100) 71 fL (79-100) Mean Corpuscular Hemoglobin 22 pg (25-35) 22 pg (25-35) Mean Corpuscular Hemoglobin Concent 31 g/dL (31-37) 31 g/dL (31-37) Red Cell Distribution Width 31.9 % (11.5-14.5) 32.0 % (11.5-14.5) Platelet Count 347 x10^3/uL (140-400) 377 x10^3/uL (140-400) Neutrophils (%) (Auto) 85 % (31-73) 85 % (31-73) Lymphocytes (%) (Auto) 4 % (24-48) 5 % (24-48) Monocytes (%) (Auto) 11 % (0-9) 10 % (0-9) Eosinophils (%) (Auto) 0 % (0-3) 0 % (0-3) Basophils (%) (Auto) 0 % (0-3) 0 % (0-3) Neutrophils # (Auto) 9.6 x10^3/uL (1.8-7.7) 9.5 x10^3/uL (1.8-7.7) Lymphocytes # (Auto) 0.5 x10^3/uL (1.0-4.8) 0.6 x10^3/uL (1.0-4.8) Monocytes # (Auto) 1.3 x10^3/uL (0.0-1.1) 1.2 x10^3/uL (0.0-1.1) Eosinophils # (Auto) 0.0 x10^3/uL (0.0-0.7) 0.0 x10^3/uL (0.0-0.7) Basophils # (Auto) 0.0 x10^3/uL (0.0-0.2) 0.0 x10^3/uL (0.0-0.2) Sodium Level 132 mmol/L (136-145) Potassium Level 4.0 mmol/L (3.5-5.1) Chloride Level 100 mmol/L (98-107) Carbon Dioxide Level 23 mmol/L (21-32) Anion Gap 9 (6-14) Blood Urea Nitrogen 39 mg/dL (8-26) Creatinine 0.7 mg/dL (0.7-1.3) Estimated GFR (Cockcroft-Gault) 111.2 BUN/Creatinine Ratio 56 (6-20) Glucose Level 92 mg/dL (70-99) Calcium Level 6.6 mg/dL (8.5-10.1) Total Bilirubin 0.5 mg/dL (0.2-1.0) Aspartate Amino Transf (AST/SGOT) 26 U/L (15-37) Alanine Aminotransferase (ALT/SGPT) 28 U/L (16-63) Alkaline Phosphatase 197 U/L (46-116) Total Protein 4.7 g/dL (6.4-8.2) Albumin 1.2 g/dL (3.4-5.0) Albumin/Globulin Ratio 0.3 (1.0-1.7) Problem List Problems Medical Problems: (1) Anemia Status: Acute (2) Colonic mass Status: Acute (3) Fatigue Status: Acute (4) Hypocalcemia Status: Acute (5) Nausea & vomiting Status: Acute (6) SBO (small bowel obstruction) Status: Acute Justicifation of Admission Dx: Justifications for Admission: Justification of Admission Dx: Yes MEGAN WILLIAMSON MD Mar 05, 2020 10:41
[2020-03-05] MEDS ORDERED: BUPIVACAINE-EPI 0.5%-1:200000 MPF 30 ML VIAL. ONE (10:42)
--- NOTE | 2020-03-05 12:04 | NUR ---
SS following for discharge planning. SS reviewed pt chart and discussed with pt RN. Pt is from home and cares for his mother at home. Pt is currently on room air. Pt on PPN and having surgery with Dr. Goss today. SS will continue to follow for discharge planning.
[2020-03-05] MEDS ORDERED: ePHEDrine PF IN SALINE 50 MG/10 ML SYRINGE. IV ONE (12:13)
[2020-03-05] MEDS ORDERED: PHENYLEPHRINE in 0.9% NACL PF 1 MG/10 ML SYRINGE. IV ONE (12:13)
[2020-03-05] MEDS ORDERED: PHENYLEPHRINE 10 MG/ML VIAL. ONE ×4 (12:15→14:35)
[2020-03-05] MEDS ORDERED: cefOXitin SODIUM IV Push 1 GM VIAL. IVP ONE (12:57)
[2020-03-05] MEDS ORDERED: ALBUMIN HUMAN 5% 500 ML IV ONE ×2 (13:08→13:13)
--- NOTE | 2020-03-05 13:31 | RAD ---
EXAM: INTRAOPERATIVE CHOLANGIOGRAM. HISTORY: Intraoperative cholangiogram with cholecystectomy. COMPARISON: None. FINDINGS: 4 fluoroscopic images are obtained intraoperatively during injection of the cystic duct remnant after cholecystectomy. There are no filling defects to suggest retained stones. The common duct is not dilated. Fluoroscopy time 36 seconds. IMPRESSION: 1. No evidence of retained stones. Electronically signed by: Bernard العلي MD (03/05/2020 1:28 PM) [facility]
--- NOTE | 2020-03-05 14:24 | PDOC ---
Date and Time Colon resection for perforation. EBL 250ml. Received 1L Albumin and 3.5L LR. Patient required pressors (phenylephrine) to maintain BP with low doses of anesthetic. D/w Dr Goss. The thought is that Sepsis is probably playing a role. Plan to keep on vent overnight. Current Medications Current Medications Sodium Chloride 1,000 ml @ 1,000 mls/hr 1X ONCE IV Last administered on 03/02/20at 17:05; Start 03/02/20 at 16:45; Stop 03/02/20 at 17:44; Status DC Calcium Gluconate (Calcium Gluconate) 1,000 mg 1X ONCE IVP Last administered on 03/02/20at 18:21; Start 03/02/20 at 18:15; Stop 03/02/20 at 18:18; Status DC Iohexol (Omnipaque 300 Mg/ml) 75 ml 1X ONCE IV Last administered on 03/02/20at 18:34; Start 03/02/20 at 18:30; Stop 03/02/20 at 18:31; Status DC Pantoprazole Sodium (PROTONIX VIAL for IV PUSH) 40 mg 1X ONCE IVP Last administered on 03/02/20at 18:41; Start 03/02/20 at 18:45; Stop 03/02/20 at 18:46; Status DC Sodium Chloride 1,000 ml @ 100 mls/hr 1X ONCE IV Last administered on 03/02/20at 19:04; Start 03/02/20 at 18:45; Stop 03/03/20 at 04:44; Status DC Enoxaparin Sodium (Lovenox Per Pharmacy Prophylaxis Dosing) 1 each PRN DAILY PRN MC SEE COMMENTS; Start 03/02/20 at 20:30; Status Cancel Enoxaparin Sodium (Lovenox 40mg Syringe) 40 mg Q24H SQ Last administered on 03/02/20at 23:48; Start 03/02/20 at 21:00; Stop 03/03/20 at 08:48; Status DC Tamsulosin HCl (Flomax) 0.4 mg HS PO Last administered on 03/04/20at 21:03; Start 03/02/20 at 23:45 Sodium Chloride 1,000 ml @ 100 mls/hr Q10H IV Last administered on 03/03/20at 11:07; Start 03/03/20 at 10:00; Stop 03/03/20 at 14:58; Status DC Ondansetron HCl (Zofran) 4 mg PRN Q4HRS PRN IV NAUSEA/VOMITING Last administered on 03/04/20at 22:31; Start 03/03/20 at 09:45 Acetaminophen (Tylenol Supp) 650 mg PRN Q4HRS PRN TX TEMP OVER 100.4F OR MILD PAIN; Start 03/03/20 at 09:45 Polyethylene Glycol (miraLAX PACKET) 17 gm DAILY PO Last administered on 03/04/20at 09:21; Start 03/03/20 at 10:00 Bisacodyl (Dulcolax Supp) 10 mg PRN DAILY PRN TX CONSTIPATION; Start 03/03/20 at 09:45 Bisacodyl (Dulcolax Tab) 10 mg PRN DAILY PRN PO CONSTIPATION Last administered on 03/03/20at 13:47; Start 03/03/20 at 09:45 Psyllium Hydrophilic Mucilloid (Metamucil Fiber Packet) 1 pkt QHS PO Last administered on 03/04/20at 21:03; Start 03/03/20 at 21:00 Polyethylene Glycol (miraLAX PACKET) 17 gm QHS PO Last administered on 03/04/20 21:03; Start 03/03/20 at 21:00 Docusate Sodium (Colace) 100 mg DAILY PO Last administered on 03/04/20at 09:21; Start 03/03/20 at 12:00 Amino Acids/ Glycerin/ Electrolytes 1,000 ml @ 80 mls/hr [id number] IV Last administered on 03/04/20at 17:59; Start 03/03/20 at 15:00 Furosemide (Lasix) 40 mg 1X ONCE IVP Last administered on 03/03/20at 16:48; Start 03/03/20 at 15:00; Stop 03/03/20 at 15:01; Status DC Iohexol (Omnipaque 300 Mg/ml) 75 ml 1X ONCE IV Last administered on 03/03/20at 16:33; Start 03/03/20 at 16:15; Stop 03/03/20 at 16:16; Status DC Info (CONTRAST GIVEN -- Rx MONITORING) 1 each PRN DAILY PRN MC SEE COMMENTS; Start 03/03/20 at 16:15; Stop 03/05/20 at 16:14 Bisacodyl (Dulcolax Supp) 10 mg 1X ONCE TX Last administered on 03/04/20at 12:18; Start 03/04/20 at 10:00; Stop 03/04/20 at 10:05; Status DC Cefoxitin Sodium (Mefoxin) 2 gm 1X PREOP IVP Last administered on 03/05/20at 13:09; Start 03/05/20 at 10:00 Lidocaine (Lidoderm) 1 patch DAILY TD ; Start 03/04/20 at 16:30; Status Cancel Miscellaneous (Lidoderm Patch Removal) 1 ea QHS MC ; Start 03/04/20 at 21:00; Status Cancel Ondansetron HCl (Zofran) 4 mg PRN Q6HRS PRN IVP NAUSEA/VOMITING; Start 03/05/20 at 07:15; Stop 03/05/20 at 20:00 Fentanyl Citrate (Fentanyl 2ml Vial) 25 mcg PRN Q5MIN PRN IVP MILD PAIN 1-3; Start 03/05/20 at 07:15; Stop 03/05/20 at 20:00 Fentanyl Citrate (Fentanyl 2ml Vial) 50 mcg PRN Q5MIN PRN IVP MODERATE TO SEVERE PAIN; Start 03/05/20 at 07:15; Stop 03/05/20 at 20:00 Morphine Sulfate (Morphine Sulfate) 1 mg PRN Q10MIN PRN IVP SEVERE PAIN 7-10; Start 03/05/20 at 07:15; Stop 03/05/20 at 20:00 Ringer's Solution 1,000 ml @ 30 mls/hr Q24H IV Last administered on 03/05/20at 09:59; Start 03/05/20 at 07:05; Stop 03/05/20 at 19:04 Lidocaine HCl (Xylocaine-Mpf 1% 2ml Vial) 2 ml 1X PRN PRN ID IV START; Start 03/05/20 at 07:15; Stop 03/05/20 at 20:00 Hydromorphone HCl (Dilaudid) 0.5 mg PRN Q10MIN PRN IVP SEV PAIN, Second choice; Start 03/05/20 at 07:15; Stop 03/05/20 at 20:00 Prochlorperazine Edisylate (Compazine) 5 mg PACU PRN PRN IVP NAUSEA, MRX1; Start 03/05/20 at 07:15; Stop 03/06/20 at 07:14 Pantoprazole Sodium (PROTONIX VIAL for IV PUSH) 40 mg DAILYAC IVP ; Start 03/05/20 at 10:30 Propofol (Diprivan) 200 mg STK-MED ONCE IV ; Start 03/05/20 at 10:23; Stop 03/05/20 at 10:23; Status DC Lidocaine HCl (Lidocaine Pf 2% Vial) 5 ml STK-MED ONCE .ROUTE ; Start 03/05/20 at 10:23; Stop 03/05/20 at 10:23; Status DC Ondansetron HCl (Zofran) 4 mg STK-MED ONCE .ROUTE ; Start 03/05/20 at 10:23; Stop 03/05/20 at 10:23; Status DC Dexamethasone Sodium Phosphate (Decadron) 4 mg STK-MED ONCE .ROUTE ; Start 03/05/20 at 10:23; Stop 03/05/20 at 10:23; Status DC Succinylcholine Chloride (Anectine) 200 mg STK-MED ONCE .ROUTE ; Start 03/05/20 at 10:23; Stop 03/05/20 at 10:23; Status DC Rocuronium Waterflow (Zemuron) 50 mg STK-MED ONCE .ROUTE ; Start 03/05/20 at 10:24; Stop 03/05/20 at 10:24; Status DC Fentanyl Citrate (Fentanyl 2ml Vial) 100 mcg STK-MED ONCE .ROUTE ; Start 03/05/20 at 10:24; Stop 03/05/20 at 10:24; Status DC Iohexol (Omnipaque 300 Mg/ml) 50 ml STK-MED ONCE .ROUTE Last administered on 03/05/20at 11:43; Start 03/05/20 at 10:41; Stop 03/05/20 at 10:41; Status DC Bupivacaine HCl/ Epinephrine Bitart (Sensorcain-Epi 0.5%-1:[id number] Mpf) 30 ml STK-MED ONCE .ROUTE ; Start 03/05/20 at 10:42; Stop 03/05/20 at 10:42; Status DC Phenylephrine HCl (PHENYLEPHRINE in 0.9% NACL PF) 1 mg STK-MED ONCE IV ; Start 03/05/20 at 12:13; Stop 03/05/20 at 12:14; Status DC Ephedrine Sulfate (ePHEDrine PF IN SALINE SYRINGE) 50 mg STK-MED ONCE IV ; Start 03/05/20 at 12:13; Stop 03/05/20 at 12:14; Status DC Phenylephrine HCl (Devin-Synephrine Inj) 10 mg STK-MED ONCE .ROUTE ; Start 03/05/20 at 12:15; Stop 03/05/20 at 12:15; Status DC Rocuronium Waterflow (Zemuron) 50 mg STK-MED ONCE .ROUTE ; Start 03/05/20 at 12:27; Stop 03/05/20 at 12:27; Status DC Cefoxitin Sodium (Mefoxin) 1 gm STK-MED ONCE IVP ; Start 03/05/20 at 12:57; Stop 03/05/20 at 12:57; Status DC Albumin Human 500 ml @ As Directed STK-MED ONCE IV ; Start 03/05/20 at 13:08; Stop 03/05/20 at 13:08; Status DC Albumin Human 500 ml @ As Directed STK-MED ONCE IV ; Start 03/05/20 at 13:13; Stop 03/05/20 at 13:14; Status DC Phenylephrine HCl (Devin-Synephrine Inj) 10 mg STK-MED ONCE .ROUTE ; Start 03/05/20 at 13:35; Stop 03/05/20 at 13:35; Status DC Phenylephrine HCl (Devin-Synephrine Inj) 10 mg STK-MED ONCE .ROUTE ; Start 03/05/20 at 13:48; Stop 03/05/20 at 13:49; Status DC Active Scripts Active Reported Flomax (Tamsulosin Hcl) 0.4 Mg Cap.er.24h 1 Cap PO QHS Pertinent Labs/Test Laboratory Tests Test 03/04/20 03:45 03/04/20 22:45 03/05/20 03:45 03/05/20 12:48 Sodium Level 132 mmol/L (136-145) 132 mmol/L (136-145) Potassium Level 3.8 mmol/L (3.5-5.1) 4.0 mmol/L (3.5-5.1) Chloride Level 100 mmol/L (98-107) 100 mmol/L (98-107) Carbon Dioxide Level 24 mmol/L (21-32) 23 mmol/L (21-32) Anion Gap 8 (6-14) 9 (6-14) Blood Urea Nitrogen 26 mg/dL (8-26) 39 mg/dL (8-26) Creatinine 0.8 mg/dL (0.7-1.3) 0.7 mg/dL (0.7-1.3) Estimated GFR (Cockcroft-Gault) 95.3 111.2 Glucose Level 77 mg/dL (70-99) 92 mg/dL (70-99) Calcium Level 6.6 mg/dL (8.5-10.1) 6.6 mg/dL (8.5-10.1) Magnesium Level 2.0 mg/dL (1.8-2.4) White Blood Count 11.4 x10^3/uL (4.0-11.0) 11.2 x10^3/uL (4.0-11.0) Red Blood Count 4.20 x10^6/uL (4.30-5.70) 4.12 x10^6/uL (4.30-5.70) Hemoglobin 9.3 g/dL (13.0-17.5) 9.2 g/dL (13.0-17.5) Hematocrit 29.9 % (39.0-53.0) 29.4 % (39.0-53.0) Mean Corpuscular Volume 71 fL (79-100) 71 fL (79-100) Mean Corpuscular Hemoglobin 22 pg (25-35) 22 pg (25-35) Mean Corpuscular Hemoglobin Concent 31 g/dL (31-37) 31 g/dL (31-37) Red Cell Distribution Width 31.9 % (11.5-14.5) 32.0 % (11.5-14.5) Platelet Count 347 x10^3/uL (140-400) 377 x10^3/uL (140-400) Neutrophils (%) (Auto) 85 % (31-73) 85 % (31-73) Lymphocytes (%) (Auto) 4 % (24-48) 5 % (24-48) Monocytes (%) (Auto) 11 % (0-9) 10 % (0-9) Eosinophils (%) (Auto) 0 % (0-3) 0 % (0-3) Basophils (%) (Auto) 0 % (0-3) 0 % (0-3) Neutrophils # (Auto) 9.6 x10^3/uL (1.8-7.7) 9.5 x10^3/uL (1.8-7.7) Lymphocytes # (Auto) 0.5 x10^3/uL (1.0-4.8) 0.6 x10^3/uL (1.0-4.8) Monocytes # (Auto) 1.3 x10^3/uL (0.0-1.1) 1.2 x10^3/uL (0.0-1.1) Eosinophils # (Auto) 0.0 x10^3/uL (0.0-0.7) 0.0 x10^3/uL (0.0-0.7) Basophils # (Auto) 0.0 x10^3/uL (0.0-0.2) 0.0 x10^3/uL (0.0-0.2) BUN/Creatinine Ratio 56 (6-20) Total Bilirubin 0.5 mg/dL (0.2-1.0) Aspartate Amino Transf (AST/SGOT) 26 U/L (15-37) Alanine Aminotransferase (ALT/SGPT) 28 U/L (16-63) Alkaline Phosphatase 197 U/L (46-116) Total Protein 4.7 g/dL (6.4-8.2) Albumin 1.2 g/dL (3.4-5.0) Albumin/Globulin Ratio 0.3 (1.0-1.7) Glucose (Fingerstick) 86 mg/dL (70-99) Laboratory Tests Test 03/04/20 22:45 03/05/20 03:45 03/05/20 12:48 White Blood Count 11.4 x10^3/uL (4.0-11.0) 11.2 x10^3/uL (4.0-11.0) Red Blood Count 4.20 x10^6/uL (4.30-5.70) 4.12 x10^6/uL (4.30-5.70) Hemoglobin 9.3 g/dL (13.0-17.5) 9.2 g/dL (13.0-17.5) Hematocrit 29.9 % (39.0-53.0) 29.4 % (39.0-53.0) Mean Corpuscular Volume 71 fL (79-100) 71 fL (79-100) Mean Corpuscular Hemoglobin 22 pg (25-35) 22 pg (25-35) Mean Corpuscular Hemoglobin Concent 31 g/dL (31-37) 31 g/dL (31-37) Red Cell Distribution Width 31.9 % (11.5-14.5) 32.0 % (11.5-14.5) Platelet Count 347 x10^3/uL (140-400) 377 x10^3/uL (140-400) Neutrophils (%) (Auto) 85 % (31-73) 85 % (31-73) Lymphocytes (%) (Auto) 4 % (24-48) 5 % (24-48) Monocytes (%) (Auto) 11 % (0-9) 10 % (0-9) Eosinophils (%) (Auto) 0 % (0-3) 0 % (0-3) Basophils (%) (Auto) 0 % (0-3) 0 % (0-3) Neutrophils # (Auto) 9.6 x10^3/uL (1.8-7.7) 9.5 x10^3/uL (1.8-7.7) Lymphocytes # (Auto) 0.5 x10^3/uL (1.0-4.8) 0.6 x10^3/uL (1.0-4.8) Monocytes # (Auto) 1.3 x10^3/uL (0.0-1.1) 1.2 x10^3/uL (0.0-1.1) Eosinophils # (Auto) 0.0 x10^3/uL (0.0-0.7) 0.0 x10^3/uL (0.0-0.7) Basophils # (Auto) 0.0 x10^3/uL (0.0-0.2) 0.0 x10^3/uL (0.0-0.2) Sodium Level 132 mmol/L (136-145) Potassium Level 4.0 mmol/L (3.5-5.1) Chloride Level 100 mmol/L (98-107) Carbon Dioxide Level 23 mmol/L (21-32) Anion Gap 9 (6-14) Blood Urea Nitrogen 39 mg/dL (8-26) Creatinine 0.7 mg/dL (0.7-1.3) Estimated GFR (Cockcroft-Gault) 111.2 BUN/Creatinine Ratio 56 (6-20) Glucose Level 92 mg/dL (70-99) Calcium Level 6.6 mg/dL (8.5-10.1) Total Bilirubin 0.5 mg/dL (0.2-1.0) Aspartate Amino Transf (AST/SGOT) 26 U/L (15-37) Alanine Aminotransferase (ALT/SGPT) 28 U/L (16-63) Alkaline Phosphatase 197 U/L (46-116) Total Protein 4.7 g/dL (6.4-8.2) Albumin 1.2 g/dL (3.4-5.0) Albumin/Globulin Ratio 0.3 (1.0-1.7) Glucose (Fingerstick) 86 mg/dL (70-99) LAST VITALS Vital Signs Date Time Temp Pulse Resp B/P (MAP) Pulse Ox O2 Delivery O2 Flow Rate FiO2 03/05/20 09:53 97.3 121 15 104/75 98 Room Air 97.3 RENATA GUERRA MD Mar 05, 2020 14:24
[2020-03-05] MEDS ORDERED: SEVOFLURANE > 120 MINUTES. IH ONE (14:30)
[2020-03-05 14:57] LABS: CORRECTED PCO2 44 mmHg; CORRECTED PH 7.34; CORRECTED PO2 23 mmHg; FIO2 ISTAT 50; VEN BASE EXCESS ISTAT -2 mmol/L (0-3); VEN GLUC ISTAT 87 mg/dL (70-99); VEN HCO3 ISTAT 24 mmol/L (24-28); VEN HCT ISTAT 28 % (37-52); VEN HGB ISTAT 9.5 g/dL (14-18); VEN ION CA ISTAT 1.03 mmol/L (1.13-1.32); VEN K ISTAT 4.6 mmol/L (3.5-5.0); VEN NA ISTAT 133 mmol/L (135-145); VEN O2 ISTAT 24 mmHg (20-40); VEN PCO2 ISTAT 46 mmHg (41-51); VEN PH ISTAT 7.33 (7.32-7.42); VEN SO2 ISTAT 39 %; VEN TCO2 ISTAT 25 mmol/L (21-32)
[2020-03-05] MEDS ORDERED: IV NORMAL SALINE 1000ML BAG 1,000 ML IV SCH ×2 (15:13→16:09)
[2020-03-05] MEDS ORDERED: NALOXONE 0.4 MG/ML VIAL. IV PRN ×2 (15:15→16:15)
--- NOTE | 2020-03-05 15:30 | RAD ---
Examination: CHEST AP ONLY History: Reason: post op et tube placment / Spl. Instructions: / History: Comparison: None. Findings: AP portable supine frontal view of the chest was obtained. Tracheal tube terminates 4.6 hematocrit from the ceferino. Enteric tube terminates in the left subdiaphragmatic region within the stomach. Calcified left hilar lymph node noted. The cardiomediastinal silhouette is normal. Lungs are clear. There is no pneumothorax although the patient is supine and this may limit assessment. No pleural effusion is appreciated. No acute bone abnormality. IMPRESSION: No acute cardiopulmonary process. Electronically signed by: Sterling Oro MD (03/05/2020 3:28 PM) [id number]
[2020-03-05] MEDS: MIDAZOLAM HCL IV PRN (16:06)
[2020-03-05] MEDS: NORMAL SALINE IV PRN (16:06)
[2020-03-05] MEDS: NOREPINEPHRINE VIAL 8 MG in IV DEXTROSE 5% 250 ML IV PRN ×2 (16:07→21:43)
[2020-03-05] MEDS ORDERED: MORPHINE SULFATE 30 ML IV PRN (16:15)
[2020-03-05] MEDS ORDERED: 0.9 % SODIUM CHLORIDE 10 ML DISP.SYRIN. IV PRN (16:15)
[2020-03-05 16:21] LABS: BASO % 0 % (0-3); EOS % 0 % (0-3); HEMATOCRIT 24.7 % (39.0-53.0); HEMOGLOBIN 7.7 g/dL (13.0-17.5); LYMPH # 0.3 x10^3/uL (1.0-4.8); LYMPH % 7 % (24-48); MEAN CORPUSCULAR HEMOGLOBIN 23 pg (25-35); MEAN CORPUSCULAR HGB CONC 31 g/dL (31-37); MEAN CORPUSCULAR VOLUME 73 fL (79-100); MONO # 0.2 x10^3/uL (0.0-1.1); MONO % 5 % (0-9); NEUT # 3.3 x10^3/uL (1.8-7.7); NEUT % 88 % (31-73); PLATELET COUNT 285 x10^3/uL (140-400); RED BLOOD COUNT 3.38 x10^6/uL (4.30-5.70); RED CELL DISTRIBUTION WIDTH 31.6 % (11.5-14.5); WHITE BLOOD COUNT 3.8 x10^3/uL (4.0-11.0)
--- NOTE | 2020-03-05 16:24 | PDOC4 ---
OPERATIVE NOTE Date: Date: Mar 05, 2020 Pre-Op Diagnosis: Obstructing right colon cancer Post-Op Diagnosis: same, perforated and invading duodenum Procedure Performed: Open right colon resection, partial resection of duodenum, placement of duodenostomy tube, cholecystectomy with cholangiogram, ghost ileostomy Surgeon: Juve Williamson Anesthesia Type: GETA plus local Blood Loss: 250 Specimans Obtained: right colon, gallbladder Findings: Large, obstructing mass at hepatic flexure with perforation into retroperitoneum and duodenum, gallstone, normal cholangiogram Complications: none Operative Note: After obtaining informed consent, patient was taken to OR, induced under GETA and prepped in the usual fashion. Midline incision was made with cautery. Abdominal cavity was explored. Small bowel was distended but otherwise normal. Stomach and liver normal. Gallbladder had gallstone. Gallbladder taken down in dome down fashion with cautery. Cystic artery ligated with ligasure. Cholangio gram obtained via cystic duct and was normal. Cystic duct ligated with 0 vicryl and clip. Gallbladder was sent to pathology. Large mass in right colon identified. White line of toldt divided. Righter ureter maintained without injury. Difficult dissection of mass off retroperitoneum and this demonstrated perforation of tumor. Mass also invaded lateral wall of second portion of duodenum and this was taken off the duodenum with overt perforation. Extensive perforated tumor and feculent material was freely perforated. MONAE used to divide small bowel proximal to ileocecal valve and distal on the transverse colon to the mass. Mesentery resected with ligasure. Specimen sent to pathology. Duodenal perforation was unlikely to maintain with repair. 3 0 PDS pursestring used and 20 duodenostomy placed into defect and secured. 19 AVI placed in area. Side to side stapled anastomosis c reated with 75 MONAE and sealed with TA 60. Mesentery defect repaired with 3 0 chromic. Anastomosis noted to be patent, under no tension and completely viable with no evidence of leakage. Copious irrigation. No evidence of bleeding or other pathology noted. Ghost ileostomy placed with red vessel loop and secured with 3 0 nylon in RLQ through rectus at terminal ileum. Fascia repaired with 0 looped PDS. Skin repaired with 3 0 vicryl and 4 0 monocryl with nicole in wound and secured with 3 0 nylon. Dressing placed. Patient tolerated procedure well but remains critical and was transferred to ICU in intubated condition. All counts correct. Wound class is 4. MEGAN WILLIAMSON MD Mar 05, 2020 16:24
--- NOTE | 2020-03-05 16:29 | PDOC ---
PULMONARY PROGRESS NOTES Vitals Vital Signs Date Time Temp Pulse Resp B/P (MAP) Pulse Ox O2 Delivery O2 Flow Rate FiO2 03/05/20 15:50 112 20 84/57 100 Ventilator 03/05/20 09:53 97.3 97.3 Lungs: Clear Labs Laboratory Tests Test 03/04/20 03:45 03/04/20 22:45 03/05/20 03:45 03/05/20 12:48 Sodium Level 132 mmol/L (136-145) 132 mmol/L (136-145) Potassium Level 3.8 mmol/L (3.5-5.1) 4.0 mmol/L (3.5-5.1) Chloride Level 100 mmol/L (98-107) 100 mmol/L (98-107) Carbon Dioxide Level 24 mmol/L (21-32) 23 mmol/L (21-32) Anion Gap 8 (6-14) 9 (6-14) Blood Urea Nitrogen 26 mg/dL (8-26) 39 mg/dL (8-26) Creatinine 0.8 mg/dL (0.7-1.3) 0.7 mg/dL (0.7-1.3) Estimated GFR (Cockcroft-Gault) 95.3 111.2 Glucose Level 77 mg/dL (70-99) 92 mg/dL (70-99) Calcium Level 6.6 mg/dL (8.5-10.1) 6.6 mg/dL (8.5-10.1) Magnesium Level 2.0 mg/dL (1.8-2.4) White Blood Count 11.4 x10^3/uL (4.0-11.0) 11.2 x10^3/uL (4.0-11.0) Red Blood Count 4.20 x10^6/uL (4.30-5.70) 4.12 x10^6/uL (4.30-5.70) Hemoglobin 9.3 g/dL (13.0-17.5) 9.2 g/dL (13.0-17.5) Hematocrit 29.9 % (39.0-53.0) 29.4 % (39.0-53.0) Mean Corpuscular Volume 71 fL (79-100) 71 fL (79-100) Mean Corpuscular Hemoglobin 22 pg (25-35) 22 pg (25-35) Mean Corpuscular Hemoglobin Concent 31 g/dL (31-37) 31 g/dL (31-37) Red Cell Distribution Width 31.9 % (11.5-14.5) 32.0 % (11.5-14.5) Platelet Count 347 x10^3/uL (140-400) 377 x10^3/uL (140-400) Neutrophils (%) (Auto) 85 % (31-73) 85 % (31-73) Lymphocytes (%) (Auto) 4 % (24-48) 5 % (24-48) Monocytes (%) (Auto) 11 % (0-9) 10 % (0-9) Eosinophils (%) (Auto) 0 % (0-3) 0 % (0-3) Basophils (%) (Auto) 0 % (0-3) 0 % (0-3) Neutrophils # (Auto) 9.6 x10^3/uL (1.8-7.7) 9.5 x10^3/uL (1.8-7.7) Lymphocytes # (Auto) 0.5 x10^3/uL (1.0-4.8) 0.6 x10^3/uL (1.0-4.8) Monocytes # (Auto) 1.3 x10^3/uL (0.0-1.1) 1.2 x10^3/uL (0.0-1.1) Eosinophils # (Auto) 0.0 x10^3/uL (0.0-0.7) 0.0 x10^3/uL (0.0-0.7) Basophils # (Auto) 0.0 x10^3/uL (0.0-0.2) 0.0 x10^3/uL (0.0-0.2) BUN/Creatinine Ratio 56 (6-20) Total Bilirubin 0.5 mg/dL (0.2-1.0) Aspartate Amino Transf (AST/SGOT) 26 U/L (15-37) Alanine Aminotransferase (ALT/SGPT) 28 U/L (16-63) Alkaline Phosphatase 197 U/L (46-116) Total Protein 4.7 g/dL (6.4-8.2) Albumin 1.2 g/dL (3.4-5.0) Albumin/Globulin Ratio 0.3 (1.0-1.7) Glucose (Fingerstick) 86 mg/dL (70-99) Test 03/05/20 13:03 Bedside Hematocrit 28 % (37-52) Arterial Blood pH (Temp corrected) 7.34 Arterial Blood pCO2 (Temp correct) 44 mmHg Arterial Blood pO2 (Temp corrected) 23 mmHg Bedside Venous pH 7.33 (7.32-7.42) Bedside Venous pCO2 46 mmHg (41-51) Bedside Venous pO2 24 mmHg (20-40) Bedside Venous HCO3 24 mmol/L (24-28) Bedside Venous Blood Total CO2 25 mmol/L (21-32) Bedside Venous Blood O2 Saturation 39 % Bedside Venous Blood Base Excess -2 mmol/L (0-3) POC Venous Hemoglobin (Calc) 9.5 g/dL (14-18) Bedside FiO2 50 Bedside Sodium 133 mmol/L (135-145) Bedside Potassium 4.6 mmol/L (3.5-5.0) Glucose Level 87 mg/dL (70-99) Bedside Ionized Calcium (Pily) 1.03 mmol/L (1.13-1.32) Laboratory Tests Test 03/04/20 22:45 03/05/20 03:45 03/05/20 12:48 03/05/20 13:03 White Blood Count 11.4 x10^3/uL (4.0-11.0) 11.2 x10^3/uL (4.0-11.0) Red Blood Count 4.20 x10^6/uL (4.30-5.70) 4.12 x10^6/uL (4.30-5.70) Hemoglobin 9.3 g/dL (13.0-17.5) 9.2 g/dL (13.0-17.5) Hematocrit 29.9 % (39.0-53.0) 29.4 % (39.0-53.0) Mean Corpuscular Volume 71 fL (79-100) 71 fL (79-100) Mean Corpuscular Hemoglobin 22 pg (25-35) 22 pg (25-35) Mean Corpuscular Hemoglobin Concent 31 g/dL (31-37) 31 g/dL (31-37) Red Cell Distribution Width 31.9 % (11.5-14.5) 32.0 % (11.5-14.5) Platelet Count 347 x10^3/uL (140-400) 377 x10^3/uL (140-400) Neutrophils (%) (Auto) 85 % (31-73) 85 % (31-73) Lymphocytes (%) (Auto) 4 % (24-48) 5 % (24-48) Monocytes (%) (Auto) 11 % (0-9) 10 % (0-9) Eosinophils (%) (Auto) 0 % (0-3) 0 % (0-3) Basophils (%) (Auto) 0 % (0-3) 0 % (0-3) Neutrophils # (Auto) 9.6 x10^3/uL (1.8-7.7) 9.5 x10^3/uL (1.8-7.7) Lymphocytes # (Auto) 0.5 x10^3/uL (1.0-4.8) 0.6 x10^3/uL (1.0-4.8) Monocytes # (Auto) 1.3 x10^3/uL (0.0-1.1) 1.2 x10^3/uL (0.0-1.1) Eosinophils # (Auto) 0.0 x10^3/uL (0.0-0.7) 0.0 x10^3/uL (0.0-0.7) Basophils # (Auto) 0.0 x10^3/uL (0.0-0.2) 0.0 x10^3/uL (0.0-0.2) Sodium Level 132 mmol/L (136-145) Potassium Level 4.0 mmol/L (3.5-5.1) Chloride Level 100 mmol/L (98-107) Carbon Dioxide Level 23 mmol/L (21-32) Anion Gap 9 (6-14) Blood Urea Nitrogen 39 mg/dL (8-26) Creatinine 0.7 mg/dL (0.7-1.3) Estimated GFR (Cockcroft-Gault) 111.2 BUN/Creatinine Ratio 56 (6-20) Glucose Level 92 mg/dL (70-99) 87 mg/dL (70-99) Calcium Level 6.6 mg/dL (8.5-10.1) Total Bilirubin 0.5 mg/dL (0.2-1.0) Aspartate Amino Transf (AST/SGOT) 26 U/L (15-37) Alanine Aminotransferase (ALT/SGPT) 28 U/L (16-63) Alkaline Phosphatase 197 U/L (46-116) Total Protein 4.7 g/dL (6.4-8.2) Albumin 1.2 g/dL (3.4-5.0) Albumin/Globulin Ratio 0.3 (1.0-1.7) Glucose (Fingerstick) 86 mg/dL (70-99) Bedside Hematocrit 28 % (37-52) Arterial Blood pH (Temp corrected) 7.34 Arterial Blood pCO2 (Temp correct) 44 mmHg Arterial Blood pO2 (Temp corrected) 23 mmHg Bedside Venous pH 7.33 (7.32-7.42) Bedside Venous pCO2 46 mmHg (41-51) Bedside Venous pO2 24 mmHg (20-40) Bedside Venous HCO3 24 mmol/L (24-28) Bedside Venous Blood Total CO2 25 mmol/L (21-32) Bedside Venous Blood O2 Saturation 39 % Bedside Venous Blood Base Excess -2 mmol/L (0-3) POC Venous Hemoglobin (Calc) 9.5 g/dL (14-18) Bedside FiO2 50 Bedside Sodium 133 mmol/L (135-145) Bedside Potassium 4.6 mmol/L (3.5-5.0) Bedside Ionized Calcium (Pily) 1.03 mmol/L (1.13-1.32) Medications Active Scripts Medications Dose Route/Sig Max Daily Dose Days Date Category Flomax (Tamsulosin Hcl) 0.4 Mg Cap.er.24h 1 Cap PO QHS 03/02/20 Reported Impression . Expected hypoxemic respiratory failure status post surgical intervention for colonic cancer Hypotension possible sepsis, see orders DOTTIE WILBURN MD Mar 05, 2020 16:29
[2020-03-05 16:37] LABS: CALCIUM 6.8 mg/dL (8.5-10.1); GFR 73.7; POTASSIUM 4.2 mmol/L (3.5-5.1)
[2020-03-05] MEDS: AMINO AC 3%/ELECTROLYTE/GLYCER 1,000 ML IV SCH (17:00)
[2020-03-05 17:02] LABS: BASE EXCESS COOX -5 mmol/L (-3-3); HCO3 COOX 20 mmol/L (21-28); METHEMOGLOBIN 0.3 % (0.0-1.9); OXYHEMOGLOBIN 97.7 %; PCO2 COOX 32 mmHg (35-46); PO2 COOX 427 mmHg (65-108); SAT O2 COOX 99 % (92-99)
--- NOTE | 2020-03-05 17:04 | RAD ---
KUB 03/05/2020 4:25 PM INDICATION: Status post exploratory laparoscopy COMPARISON: None available. TECHNIQUE: 2 supine views of the abdomen are provided. FINDINGS/ IMPRESSION: 1. Drainage catheter projects over the right lateral abdomen. Gastrostomy tube is suspected. Mild to moderate gastric distention noted. 2. Nasogastric tube is identified with the distal tip projecting over the gastric cardia. 3. Dilated small bowel loops in the left lower quadrant measuring up to 3.3 cm. Findings could represent ileus versus resolving small bowel obstruction 4. Laparoscopy pad appears to project over the midline pelvis. 5. Bowel anastomosis noted in the right midabdomen. Electronically signed by: Donna Antonio MD (03/05/2020 5:02 PM) [id number]
[2020-03-05 17:35] LABS: % BANDS 22 % (0-9); % LYMPHS 4 % (24-48); % METAS 1 % (0-0); % MONOS 3 % (0-10); % MYELOS 1 % (0-0); % SEGS 69 % (35-66)
[2020-03-05 17:37] LABS: ANISOCYTOSIS MARKED; HYPOCHROMIA MOD; MICROCYTOSIS MOD; PLT ESTIMATE ADEQUATE (ADEQUATE); POLYCHROMASIA SLIGHT
[2020-03-05] MEDS: PIPERACILLIN/TAZOBACTAM 3.375 GM in IV NORMAL SALINE 50ML 50 ML IV SCH (17:37)
[2020-03-05 17:38] LABS: OVALOCYTES FEW; SCHISTOCYTES OCC
[2020-03-05 17:39] LABS: TOXIC GRANULATION SLIGHT
[2020-03-05] MEDS: POLYETHYLENE GLYCOL 3350 17 GM PACKET. PO SCH ×2 (18:27→20:48)
[2020-03-05] MEDS: PANTOPRAZOLE IV PUSH 40 MG VIAL. IVP SCH (18:27)
[2020-03-05] MEDS: DOCUSATE SODIUM 100 MG CAPSULE. PO SCH (18:27)
--- NOTE | 2020-03-05 19:43 | NUR ---
Patient arrived on unit at 1450 accompanied by OR staff. Patient on the ventilator, slightly hypotensive, OR staff aware and continuous phenylephrine gtt infusing as is LR bolus, levophed ordered. Labs redrawn. Dr. Delarosa notified of consult, orders received for sedation and ventilator management. Patient had copious amounts of stool, rectal tube inserted. Notified Dr. Goss of decrease in hemoglobin, received the order to transfuse one unit PRBCs and recheck in the morning.
[2020-03-05] MEDS ORDERED: IV RINGERS,LACTATED 1000ML 1,000 ML IV ONE (20:00)
[2020-03-05] MEDS: TAMSULOSIN 0.4 MG CAP.ER.24H. PO SCH (20:47)
[2020-03-05] MEDS: PSYLLIUM HUSK (SUGAR FREE) 1 PKT PACKET PO SCH (20:48)
--- NOTE | 2020-03-05 21:09 | CONS ---
DATE OF CONSULTATION: 03/05/2020 ATTENDING PHYSICIAN: Jimmy Lam MD REASON FOR CONSULTATION: The patient seen in pulmonary consultation at the request of Dr. Lennon for expected respiratory failure. The patient underwent surgical intervention earlier today at a colonic mass. Underwent surgical intervention. He is currently hypotensive. He is in the intensive care unit, receiving IV fluids and pressors. I was asked to see him in consultation for ventilatory management and for his hypotension. His arterial blood gas revealed a pH of 7.34, PaCO2 of 44. He has had COVID negative testing on 03/03/2020. His chest x-ray from today revealed no acute cardiopulmonary process. His past CT chest prior to surgery revealed small bilateral effusion, no acute infiltrates. PAST MEDICAL HISTORY: Otherwise remarkable for prostate cancer, status post radiation, hypertension. PAST SURGICAL HISTORY: No major surgeries except for that listed above. FAMILY HISTORY: No family history of GI malignancies. SOCIAL HISTORY: He smokes less than one pack of cigarettes a day. REVIEW OF SYSTEMS: Unobtainable secondary to the patient's condition. ALLERGIES: ASPIRIN. PHYSICAL EXAMINATION: VITAL SIGNS: Vital signs were noted. He is on pressors for hypotension. O2 saturation was greater than 92%. HEENT: Eyes; sclerae were nonicteric. NECK: Jugular venous distention could not be assessed secondary to body habitus. CHEST: Full expansion. LUNGS: Coarse breath sounds, no wheezes. CARDIOVASCULAR: Regular rate and rhythm with S1, S2, no S3. ABDOMEN: Soft. Dressing in place. EXTREMITIES: No clubbing, cyanosis. Minimal edema. HISTORY OF PRESENT ILLNESS: Labs were reviewed. White count was 11.2, hemoglobin and hematocrit were noted, platelet count was noted. INR was 1.4. Electrolytes: Sodium was low. BUN was elevated at 39, creatinine 0.7. Albumin was low. UA was noted. IMPRESSION: 1. Acute hypoxemic respiratory failure, expected status post surgical intervention for colonic mass. 2. Obstructing colonic cancer. 3. History of prostate cancer. 4. Severe protein malnutrition present upon admission. 5. Tobacco dependent. 6. Chronic obstructive pulmonary disease. 7. SARS-CoV-2 negative. 8. Cholelithiasis. 9. Hyponatremia. 10. Protein malnutrition, present upon admission. 11. Benign prostatic hypertrophy. PLAN: 1. Continue current support with mechanical ventilation. 2. IV fluids. 3. IV Pressors. Maintain mean arterial pressure above 60. 4. Empiric antibiotics. 5. Follow surgical input. 6. DVT and GI prophylaxis. 7. Empiric antibiotics. The patient is currently on IV Zosyn. I do appreciate the privilege in sharing in the patient's care. Total cumulative critical care time of 45 minutes reviewing data, labs, chest x-ray and formulating a plan. DOTTIE WILBURN MD DR: ZAY/lico JOB#: [id number] / [id number]
[2020-03-05] MEDS: IV RINGERS,LACTATED 1000ML 1,000 ML IV SCH (22:03)
--- NOTE | 2020-03-05 22:47 | NUR ---
For transfusion documentation at 0, unable to obtain BP. Able to get MAP of 59, but unable document this in transfusion data.
--- NOTE | 2020-03-05 23:25 | NUR ---
Allergies and reactions ASA INR 1.4 BUN 40 Cr 1.0 Platelets 285 Blood culture done No Order Verified Yes Consent signed Yes Previous PICC placement Unknowb Past Medical/Surgical history and current diagnosis reviewed Yes Patient Medical /Surgical History Related to PICC line placement Cancer Renal consult Special considerations for PICC line placement None PICC placement indication Caustic medication class drug usage, Anika Jackson RN, PICC Nurse Addendum: 03/06/20 at 0201 by ANIKA JACKSON RN Amended: Links added.
[2020-03-06] VITALS (29 sets, daily range): BP systolic 77–156; BP diastolic 43–80
--- NOTE | 2020-03-06 | NUR ---
Procedure: Following complete explanation of the PICC procedure including the indications, risks, and potential complications, informed consent was obtained. The possibility for infection was discussed along with signs, symptoms, and prevention. All the questions were answered. Written and verbal patient education was provided. Hand hygiene performed. Standardized central line checklist was utilized. The patient was placed in the supine position, the arm was prepped with chlorhexidine and patient draped with maximum sterile barrier. 3 mL 1% lidocaine was infiltrated into the skin to provide local anesthesia. A thorough assessment of Left upper extremity completed. Using real-time ultrasound guidance and standardized micro puncture set, the Basilic vein was punctured and a peel away sheath was placed using the modified Seldinger technique. A tip location device was used to ensure adequate catheter placement. The catheter was secured using a securement device and an antimicrobial patch was applied directly on the insertion site followed by a transparent dressing. All ports withdraw blood and flush without resistance. Patient tolerated the procedure without apparent complication(s). Triple Lumen Power PICC placement successful and uncomplicated. Placement verified by EKG tip confirmation system. Tip located in the Cavoatrial Junction. Complications: None Catheter trimmed to 40CM and inserted to 0CM radhames Addendum: 03/06/20 at 0219 by LAURIE LUBIN RN Amended: Links added.
[2020-03-06] MEDS: PIPERACILLIN/TAZOBACTAM 3.375 GM in IV NORMAL SALINE 50ML 50 ML IV SCH ×4 (00:43→17:47)
[2020-03-06] MEDS ORDERED: IV RINGERS,LACTATED 1000ML 1,000 ML IV ONE ×5 (01:00→18:15)
[2020-03-06] MEDS: AMINO AC 3%/ELECTROLYTE/GLYCER 1,000 ML IV SCH ×3 (01:07→12:54)
[2020-03-06] MEDS: NOREPINEPHRINE VIAL 8 MG in IV DEXTROSE 5% 250 ML IV PRN ×6 (01:24→21:46)
[2020-03-06] MEDS: IV RINGERS,LACTATED 1000ML 1,000 ML IV SCH ×3 (02:09→21:44)
[2020-03-06 05:21] LABS: BASO % 0 % (0-3); EOS % 0 % (0-3); HEMATOCRIT 29.9 % (39.0-53.0); HEMOGLOBIN 9.4 g/dL (13.0-17.5); LYMPH # 0.7 x10^3/uL (1.0-4.8); LYMPH % 4 % (24-48); MEAN CORPUSCULAR HEMOGLOBIN 23 pg (25-35); MEAN CORPUSCULAR HGB CONC 32 g/dL (31-37); MEAN CORPUSCULAR VOLUME 73 fL (79-100); MONO % 5 % (0-9); NEUT # 17.9 x10^3/uL (1.8-7.7); NEUT % 91 % (31-73); PLATELET COUNT 301 x10^3/uL (140-400); RED BLOOD COUNT 4.07 x10^6/uL (4.30-5.70); RED CELL DISTRIBUTION WIDTH 29.7 % (11.5-14.5); WHITE BLOOD COUNT 19.6 x10^3/uL (4.0-11.0)
[2020-03-06 06:07] LABS: ALBUMIN 1.5 g/dL (3.4-5.0); ALBUMIN/GLOBULIN RATIO 0.7 (1.0-1.7); CALCIUM 6.6 mg/dL (8.5-10.1); CREATININE 1.1 mg/dL (0.7-1.3); POTASSIUM 4.2 mmol/L (3.5-5.1); TOTAL BILIRUBIN 0.9 mg/dL (0.2-1.0); TOTAL PROTEIN 3.8 g/dL (6.4-8.2)
[2020-03-06] MEDS: DOCUSATE SODIUM 100 MG CAPSULE. PO SCH (07:33)
[2020-03-06] MEDS: POLYETHYLENE GLYCOL 3350 17 GM PACKET. PO SCH (07:33)
[2020-03-06] MEDS: NORMAL SALINE IV PRN (07:40)
[2020-03-06] MEDS: MIDAZOLAM HCL IV PRN (07:40)
[2020-03-06] MEDS: PANTOPRAZOLE IV PUSH 40 MG VIAL. IVP SCH (07:41)
--- NOTE | 2020-03-06 08:07 | PDOC ---
PULMONARY PROGRESS NOTES Subjective Patient sedated, on norepinephrine Vitals Vital Signs Date Time Temp Pulse Resp B/P (MAP) Pulse Ox O2 Delivery O2 Flow Rate FiO2 03/06/20 07:00 109 16 109/62 (78) 100 Ventilator 03/06/20 04:00 97.9 97.9 Lungs: Clear Cardiovascular: S1, S2 Abdomen: Other (Dressing in place) Extremities: No Edema Skin: Warm Labs Laboratory Tests Test 03/04/20 22:45 03/05/20 03:45 03/05/20 12:48 03/05/20 13:03 White Blood Count 11.4 x10^3/uL (4.0-11.0) 11.2 x10^3/uL (4.0-11.0) Red Blood Count 4.20 x10^6/uL (4.30-5.70) 4.12 x10^6/uL (4.30-5.70) Hemoglobin 9.3 g/dL (13.0-17.5) 9.2 g/dL (13.0-17.5) Hematocrit 29.9 % (39.0-53.0) 29.4 % (39.0-53.0) Mean Corpuscular Volume 71 fL (79-100) 71 fL (79-100) Mean Corpuscular Hemoglobin 22 pg (25-35) 22 pg (25-35) Mean Corpuscular Hemoglobin Concent 31 g/dL (31-37) 31 g/dL (31-37) Red Cell Distribution Width 31.9 % (11.5-14.5) 32.0 % (11.5-14.5) Platelet Count 347 x10^3/uL (140-400) 377 x10^3/uL (140-400) Neutrophils (%) (Auto) 85 % (31-73) 85 % (31-73) Lymphocytes (%) (Auto) 4 % (24-48) 5 % (24-48) Monocytes (%) (Auto) 11 % (0-9) 10 % (0-9) Eosinophils (%) (Auto) 0 % (0-3) 0 % (0-3) Basophils (%) (Auto) 0 % (0-3) 0 % (0-3) Neutrophils # (Auto) 9.6 x10^3/uL (1.8-7.7) 9.5 x10^3/uL (1.8-7.7) Lymphocytes # (Auto) 0.5 x10^3/uL (1.0-4.8) 0.6 x10^3/uL (1.0-4.8) Monocytes # (Auto) 1.3 x10^3/uL (0.0-1.1) 1.2 x10^3/uL (0.0-1.1) Eosinophils # (Auto) 0.0 x10^3/uL (0.0-0.7) 0.0 x10^3/uL (0.0-0.7) Basophils # (Auto) 0.0 x10^3/uL (0.0-0.2) 0.0 x10^3/uL (0.0-0.2) Sodium Level 132 mmol/L (136-145) Potassium Level 4.0 mmol/L (3.5-5.1) Chloride Level 100 mmol/L (98-107) Carbon Dioxide Level 23 mmol/L (21-32) Anion Gap 9 (6-14) Blood Urea Nitrogen 39 mg/dL (8-26) Creatinine 0.7 mg/dL (0.7-1.3) Estimated GFR (Cockcroft-Gault) 111.2 BUN/Creatinine Ratio 56 (6-20) Glucose Level 92 mg/dL (70-99) 87 mg/dL (70-99) Calcium Level 6.6 mg/dL (8.5-10.1) Total Bilirubin 0.5 mg/dL (0.2-1.0) Aspartate Amino Transf (AST/SGOT) 26 U/L (15-37) Alanine Aminotransferase (ALT/SGPT) 28 U/L (16-63) Alkaline Phosphatase 197 U/L (46-116) Total Protein 4.7 g/dL (6.4-8.2) Albumin 1.2 g/dL (3.4-5.0) Albumin/Globulin Ratio 0.3 (1.0-1.7) Glucose (Fingerstick) 86 mg/dL (70-99) Bedside Hematocrit 28 % (37-52) Arterial Blood pH (Temp corrected) 7.34 Arterial Blood pCO2 (Temp correct) 44 mmHg Arterial Blood pO2 (Temp corrected) 23 mmHg Bedside Venous pH 7.33 (7.32-7.42) Bedside Venous pCO2 46 mmHg (41-51) Bedside Venous pO2 24 mmHg (20-40) Bedside Venous HCO3 24 mmol/L (24-28) Bedside Venous Blood Total CO2 25 mmol/L (21-32) Bedside Venous Blood O2 Saturation 39 % Bedside Venous Blood Base Excess -2 mmol/L (0-3) POC Venous Hemoglobin (Calc) 9.5 g/dL (14-18) Bedside FiO2 50 Bedside Sodium 133 mmol/L (135-145) Bedside Potassium 4.6 mmol/L (3.5-5.0) Bedside Ionized Calcium (Pily) 1.03 mmol/L (1.13-1.32) Test 03/05/20 15:40 03/05/20 16:15 03/05/20 16:55 03/06/20 05:00 Sodium Level 133 mmol/L (136-145) 131 mmol/L (136-145) Potassium Level 4.2 mmol/L (3.5-5.1) 4.2 mmol/L (3.5-5.1) Chloride Level 102 mmol/L (98-107) 101 mmol/L (98-107) Carbon Dioxide Level 20 mmol/L (21-32) 20 mmol/L (21-32) Anion Gap 11 (6-14) 10 (6-14) Blood Urea Nitrogen 40 mg/dL (8-26) 40 mg/dL (8-26) Creatinine 1.0 mg/dL (0.7-1.3) 1.1 mg/dL (0.7-1.3) Estimated GFR (Cockcroft-Gault) 73.7 66.0 Glucose Level 95 mg/dL (70-99) 167 mg/dL (70-99) Calcium Level 6.8 mg/dL (8.5-10.1) 6.6 mg/dL (8.5-10.1) White Blood Count 3.8 x10^3/uL (4.0-11.0) 19.6 x10^3/uL (4.0-11.0) Red Blood Count 3.38 x10^6/uL (4.30-5.70) 4.07 x10^6/uL (4.30-5.70) Hemoglobin 7.7 g/dL (13.0-17.5) 9.4 g/dL (13.0-17.5) Hematocrit 24.7 % (39.0-53.0) 29.9 % (39.0-53.0) Mean Corpuscular Volume 73 fL (79-100) 73 fL (79-100) Mean Corpuscular Hemoglobin 23 pg (25-35) 23 pg (25-35) Mean Corpuscular Hemoglobin Concent 31 g/dL (31-37) 32 g/dL (31-37) Red Cell Distribution Width 31.6 % (11.5-14.5) 29.7 % (11.5-14.5) Platelet Count 285 x10^3/uL (140-400) 301 x10^3/uL (140-400) Neutrophils (%) (Auto) 88 % (31-73) 91 % (31-73) Lymphocytes (%) (Auto) 7 % (24-48) 4 % (24-48) Monocytes (%) (Auto) 5 % (0-9) 5 % (0-9) Eosinophils (%) (Auto) 0 % (0-3) 0 % (0-3) Basophils (%) (Auto) 0 % (0-3) 0 % (0-3) Neutrophils # (Auto) 3.3 x10^3/uL (1.8-7.7) 17.9 x10^3/uL (1.8-7.7) Lymphocytes # (Auto) 0.3 x10^3/uL (1.0-4.8) 0.7 x10^3/uL (1.0-4.8) Monocytes # (Auto) 0.2 x10^3/uL (0.0-1.1) 1.0 x10^3/uL (0.0-1.1) Eosinophils # (Auto) 0.0 x10^3/uL (0.0-0.7) 0.0 x10^3/uL (0.0-0.7) Basophils # (Auto) 0.0 x10^3/uL (0.0-0.2) 0.0 x10^3/uL (0.0-0.2) Segmented Neutrophils % 69 % (35-66) Band Neutrophils % 22 % (0-9) Lymphocytes % 4 % (24-48) Monocytes % 3 % (0-10) Metamyelocytes % 1 % (0-0) Myelocytes % 1 % (0-0) Toxic Granulation Slight Platelet Estimate Adequate (ADEQUATE) Polychromasia Slight Hypochromasia Mod Anisocytosis Marked Microcytosis Mod Ovalocytes Few Schistocytes Occ O2 Saturation 99 % (92-99) Arterial Blood pH 7.40 (7.35-7.45) Arterial Blood pCO2 at Patient Temp 32 mmHg (35-46) Arterial Blood pO2 at Patient Temp 427 mmHg (65-108) Arterial Blood HCO3 20 mmol/L (21-28) Arterial Blood Base Excess -5 mmol/L (-3-3) Oxyhemoglobin 97.7 % Methemoglobin 0.3 % (0.0-1.9) Carbon Monoxide, Quantitative 0.8 % (0.0-1.9) FiO2 100 BUN/Creatinine Ratio 36 (6-20) Total Bilirubin 0.9 mg/dL (0.2-1.0) Aspartate Amino Transf (AST/SGOT) 25 U/L (15-37) Alanine Aminotransferase (ALT/SGPT) 23 U/L (16-63) Alkaline Phosphatase 110 U/L (46-116) Total Protein 3.8 g/dL (6.4-8.2) Albumin 1.5 g/dL (3.4-5.0) Albumin/Globulin Ratio 0.7 (1.0-1.7) Laboratory Tests Test 03/05/20 12:48 03/05/20 13:03 03/05/20 15:40 03/05/20 16:15 Glucose (Fingerstick) 86 mg/dL (70-99) Bedside Hematocrit 28 % (37-52) Arterial Blood pH (Temp corrected) 7.34 Arterial Blood pCO2 (Temp correct) 44 mmHg Arterial Blood pO2 (Temp corrected) 23 mmHg Bedside Venous pH 7.33 (7.32-7.42) Bedside Venous pCO2 46 mmHg (41-51) Bedside Venous pO2 24 mmHg (20-40) Bedside Venous HCO3 24 mmol/L (24-28) Bedside Venous Blood Total CO2 25 mmol/L (21-32) Bedside Venous Blood O2 Saturation 39 % Bedside Venous Blood Base Excess -2 mmol/L (0-3) POC Venous Hemoglobin (Calc) 9.5 g/dL (14-18) Bedside FiO2 50 Bedside Sodium 133 mmol/L (135-145) Bedside Potassium 4.6 mmol/L (3.5-5.0) Glucose Level 87 mg/dL (70-99) 95 mg/dL (70-99) Bedside Ionized Calcium (Pily) 1.03 mmol/L (1.13-1.32) Sodium Level 133 mmol/L (136-145) Potassium Level 4.2 mmol/L (3.5-5.1) Chloride Level 102 mmol/L (98-107) Carbon Dioxide Level 20 mmol/L (21-32) Anion Gap 11 (6-14) Blood Urea Nitrogen 40 mg/dL (8-26) Creatinine 1.0 mg/dL (0.7-1.3) Estimated GFR (Cockcroft-Gault) 73.7 Calcium Level 6.8 mg/dL (8.5-10.1) White Blood Count 3.8 x10^3/uL (4.0-11.0) Red Blood Count 3.38 x10^6/uL (4.30-5.70) Hemoglobin 7.7 g/dL (13.0-17.5) Hematocrit 24.7 % (39.0-53.0) Mean Corpuscular Volume 73 fL (79-100) Mean Corpuscular Hemoglobin 23 pg (25-35) Mean Corpuscular Hemoglobin Concent 31 g/dL (31-37) Red Cell Distribution Width 31.6 % (11.5-14.5) Platelet Count 285 x10^3/uL (140-400) Neutrophils (%) (Auto) 88 % (31-73) Lymphocytes (%) (Auto) 7 % (24-48) Monocytes (%) (Auto) 5 % (0-9) Eosinophils (%) (Auto) 0 % (0-3) Basophils (%) (Auto) 0 % (0-3) Neutrophils # (Auto) 3.3 x10^3/uL (1.8-7.7) Lymphocytes # (Auto) 0.3 x10^3/uL (1.0-4.8) Monocytes # (Auto) 0.2 x10^3/uL (0.0-1.1) Eosinophils # (Auto) 0.0 x10^3/uL (0.0-0.7) Basophils # (Auto) 0.0 x10^3/uL (0.0-0.2) Segmented Neutrophils % 69 % (35-66) Band Neutrophils % 22 % (0-9) Lymphocytes % 4 % (24-48) Monocytes % 3 % (0-10) Metamyelocytes % 1 % (0-0) Myelocytes % 1 % (0-0) Toxic Granulation Slight Platelet Estimate Adequate (ADEQUATE) Polychromasia Slight Hypochromasia Mod Anisocytosis Marked Microcytosis Mod Ovalocytes Few Schistocytes Occ Test 03/05/20 16:55 03/06/20 05:00 O2 Saturation 99 % (92-99) Arterial Blood pH 7.40 (7.35-7.45) Arterial Blood pCO2 at Patient Temp 32 mmHg (35-46) Arterial Blood pO2 at Patient Temp 427 mmHg (65-108) Arterial Blood HCO3 20 mmol/L (21-28) Arterial Blood Base Excess -5 mmol/L (-3-3) Oxyhemoglobin 97.7 % Methemoglobin 0.3 % (0.0-1.9) Carbon Monoxide, Quantitative 0.8 % (0.0-1.9) FiO2 100 White Blood Count 19.6 x10^3/uL (4.0-11.0) Red Blood Count 4.07 x10^6/uL (4.30-5.70) Hemoglobin 9.4 g/dL (13.0-17.5) Hematocrit 29.9 % (39.0-53.0) Mean Corpuscular Volume 73 fL (79-100) Mean Corpuscular Hemoglobin 23 pg (25-35) Mean Corpuscular Hemoglobin Concent 32 g/dL (31-37) Red Cell Distribution Width 29.7 % (11.5-14.5) Platelet Count 301 x10^3/uL (140-400) Neutrophils (%) (Auto) 91 % (31-73) Lymphocytes (%) (Auto) 4 % (24-48) Monocytes (%) (Auto) 5 % (0-9) Eosinophils (%) (Auto) 0 % (0-3) Basophils (%) (Auto) 0 % (0-3) Neutrophils # (Auto) 17.9 x10^3/uL (1.8-7.7) Lymphocytes # (Auto) 0.7 x10^3/uL (1.0-4.8) Monocytes # (Auto) 1.0 x10^3/uL (0.0-1.1) Eosinophils # (Auto) 0.0 x10^3/uL (0.0-0.7) Basophils # (Auto) 0.0 x10^3/uL (0.0-0.2) Sodium Level 131 mmol/L (136-145) Potassium Level 4.2 mmol/L (3.5-5.1) Chloride Level 101 mmol/L (98-107) Carbon Dioxide Level 20 mmol/L (21-32) Anion Gap 10 (6-14) Blood Urea Nitrogen 40 mg/dL (8-26) Creatinine 1.1 mg/dL (0.7-1.3) Estimated GFR (Cockcroft-Gault) 66.0 BUN/Creatinine Ratio 36 (6-20) Glucose Level 167 mg/dL (70-99) Calcium Level 6.6 mg/dL (8.5-10.1) Total Bilirubin 0.9 mg/dL (0.2-1.0) Aspartate Amino Transf (AST/SGOT) 25 U/L (15-37) Alanine Aminotransferase (ALT/SGPT) 23 U/L (16-63) Alkaline Phosphatase 110 U/L (46-116) Total Protein 3.8 g/dL (6.4-8.2) Albumin 1.5 g/dL (3.4-5.0) Albumin/Globulin Ratio 0.7 (1.0-1.7) Medications Active Scripts Medications Dose Route/Sig Max Daily Dose Days Date Category Flomax (Tamsulosin Hcl) 0.4 Mg Cap.er.24h 1 Cap PO QHS 03/02/20 Reported Impression . IMPRESSION: 1. Acute hypoxemic respiratory failure, expected status post surgical intervention for colonic mass. 2. Obstructing colonic cancer. 3. History of prostate cancer. 4. Severe protein malnutrition present upon admission. 5. Tobacco dependent. 6. Chronic obstructive pulmonary disease. 7. SARS-CoV-2 negative. 8. Cholelithiasis. 9. Hyponatremia. 10. Protein malnutrition, present upon admission. 11. Benign prostatic hypertrophy. 12. S/p open right colon resection, partial resection of duodenum, placement of duodenostomy tube, cholecystectomy, ghost ileostomy Plan . Case discussed with RN 1. Continue current support with mechanical ventilation. 2. IV fluids. Give extra fluids today 3. IV Pressors. Maintain mean arterial pressure above 60. 4. Empiric antibiotics. 5. Follow surgical input. 6. DVT and GI prophylaxis. 7. Empiric antibiotics. The patient is currently on IV Zosyn. Family considering DNR Total cumulative critical care time of 30 minutes reviewing data, labs, chest x-ray and formulating a plan. DOTTIE WILBURN MD Mar 06, 2020 08:07
[2020-03-06 08:22] LABS: BASE EXCESS ABG -6 mmol/L (-3-3); HCO3 ABG 18 mmol/L (21-28); PCO2 ABG 29 mmHg (35-46); PO2 ABG 180 mmHg (65-108); SAT O2 ABG 98 % (92-99)
--- NOTE | 2020-03-06 08:32 | PDOC ---
PROGRESS NOTES Chief Complaint Chief Complaint IMPRESSION Nausea Vomiting Fatigue Weight Loss Small bowel dilatation/obstruction suspicious for primary colon cancer 10.5cm mass with surrounding lymph nodes concerning for metastatic disease 10.5 cm colonic mass. Colonic mass abuts the right hepatic lobe inferior margin as well as the duodenum and anterior right kidney (extending through or deforming Gerota's fascia), suspicious for primary colon cancer. Prominent associated lymph nodes are seen, possibly metastatic Obstructing right colon cancer Dialated Appendix fatty liver dz Gallstones Microcytic Anemia Alkaline Phosphatemia Hyponatremia Mild Leukocytosis Tachycardia H/o prostate cancer in remission Severe protein calorie malnutrition LE edema - BNP of 350, no cardiac history and no symptoms of CHF. This is unlikely to be cardiac related at all. Likely likely lymphatic obstruction due to abdominal mass. Hyponatremia - likely due to poor PO intake, SERUM OSMOLALITY PENDING HYPOTENSION, POSSIBLE SEPSIS NPO vent support post=op s/p open right colon POD # 1 remains critically ill 38 min cc time History of Present Illness History of Present Illness Mr Claudio is a 69 yo CM hx of prostate cancer s/p radiation, HTN, prediabetes now off meds who presents with vomiting fatigue diarrhea weight loss and decreased appetite for 1 month. He went to see his PCP because over the past week he had sudden onset lower extremity edema, patient had labs drawn as outpatient and called by PCP to go to the hospital for a blood transfusion and treatment for CHF. No history of CHF. On ROS he just notes his bones feel heavy. He also notes over the past 2 months sometimes he will choke on food and vomited up. His last bowel movement was 2 days ago and it was diarrhea. He has not been able to eat very well. He just feels tired. He stopped smoking over 25 years ago and he only did smoke cigars at that time. With regard to his prostate cancer he states that he had 43 radiation treatments and had a PET scan at the end of 2019 and was told he is in remission. He has never had a colonoscopy. in ED patient found to have hb of 9.8. na 130. noted to be tachy with HR 110. Patient lives with 101 year old mom. His mother has history of stage III colon cancer diagnosed at age 76. His brother has history of prostate cancer, father of lung cancer. Ct abdomen in ED revealed: 1. Small bowel dilatation/obstruction to the level of a 10.5 cm colonic mass. Colonic mass abuts the right hepatic lobe inferior margin as well as the duodenum and anterior right kidney (extending through or deforming Gerota's fascia), suspicious for primary colon cancer. Prominent associated lymph nodes are seen, possibly metastatic. Otherwise no abdominal or pelvic lymphadenopathy. 2. The appendix is dilated with infiltration mostly at the base. Although this may secondary dilation from obstruction from the colonic mass, acute appendicitis cannot be excluded but is felt to be less likely. 3. Hepatic hypoattenuation likely fatty liver. 4. Small gallstone is seen within the gallbladder 03/05: He has some nausea, he is worried about his mother going into hospice. Afebrile. NA 132. Started on PPN. Given Lasix with improvement in his edema. No chest pain or shortness of breath, a lot of weakness and says he feels weak in his bones. 2x BM overnight OPERATIVE NOTE Date: Date: Mar 05, 2020 Pre-Op Diagnosis: Obstructing right colon cancer Post-Op Diagnosis: same, perforated and invading duodenum Procedure Performed: Open right colon resection, partial resection of duodenum, placement of duodenostomy tube, cholecystectomy with cholangiogram, ghost ileostomy Surgeon: Juve Goss Anesthesia Type: GETA plus local Blood Loss: 250 Specimans Obtained: right colon, gallbladder Findings: Large, obstructing mass at hepatic flexure with perforation into retroperitoneum and duodenum, gallstone, normal cholangiogram Complications: Vitals Vitals Vital Signs Date Time Temp Pulse Resp B/P (MAP) Pulse Ox O2 Delivery O2 Flow Rate FiO2 03/06/20 08:13 100 Ventilator 03/06/20 07:00 109 16 109/62 (78) 03/06/20 04:00 97.9 97.9 Physical Exam Physical Exam SEDATED ON VENT Heart: Regular rate, Normal S2 Lungs: Clear Abdomen: Other (DRESSINGS DRY) Extremities: No clubbing, No cyanosis Skin: No breakdown, No significant lesion Labs LABS Laboratory Tests Test 03/05/20 12:48 03/05/20 13:03 03/05/20 15:40 03/05/20 16:15 Glucose (Fingerstick) 86 mg/dL (70-99) Bedside Hematocrit 28 % (37-52) Arterial Blood pH (Temp corrected) 7.34 Arterial Blood pCO2 (Temp correct) 44 mmHg Arterial Blood pO2 (Temp corrected) 23 mmHg Bedside Venous pH 7.33 (7.32-7.42) Bedside Venous pCO2 46 mmHg (41-51) Bedside Venous pO2 24 mmHg (20-40) Bedside Venous HCO3 24 mmol/L (24-28) Bedside Venous Blood Total CO2 25 mmol/L (21-32) Bedside Venous Blood O2 Saturation 39 % Bedside Venous Blood Base Excess -2 mmol/L (0-3) POC Venous Hemoglobin (Calc) 9.5 g/dL (14-18) Bedside FiO2 50 Bedside Sodium 133 mmol/L (135-145) Bedside Potassium 4.6 mmol/L (3.5-5.0) Glucose Level 87 mg/dL (70-99) 95 mg/dL (70-99) Bedside Ionized Calcium (Pily) 1.03 mmol/L (1.13-1.32) Sodium Level 133 mmol/L (136-145) Potassium Level 4.2 mmol/L (3.5-5.1) Chloride Level 102 mmol/L (98-107) Carbon Dioxide Level 20 mmol/L (21-32) Anion Gap 11 (6-14) Blood Urea Nitrogen 40 mg/dL (8-26) Creatinine 1.0 mg/dL (0.7-1.3) Estimated GFR (Cockcroft-Gault) 73.7 Calcium Level 6.8 mg/dL (8.5-10.1) White Blood Count 3.8 x10^3/uL (4.0-11.0) Red Blood Count 3.38 x10^6/uL (4.30-5.70) Hemoglobin 7.7 g/dL (13.0-17.5) Hematocrit 24.7 % (39.0-53.0) Mean Corpuscular Volume 73 fL (79-100) Mean Corpuscular Hemoglobin 23 pg (25-35) Mean Corpuscular Hemoglobin Concent 31 g/dL (31-37) Red Cell Distribution Width 31.6 % (11.5-14.5) Platelet Count 285 x10^3/uL (140-400) Neutrophils (%) (Auto) 88 % (31-73) Lymphocytes (%) (Auto) 7 % (24-48) Monocytes (%) (Auto) 5 % (0-9) Eosinophils (%) (Auto) 0 % (0-3) Basophils (%) (Auto) 0 % (0-3) Neutrophils # (Auto) 3.3 x10^3/uL (1.8-7.7) Lymphocytes # (Auto) 0.3 x10^3/uL (1.0-4.8) Monocytes # (Auto) 0.2 x10^3/uL (0.0-1.1) Eosinophils # (Auto) 0.0 x10^3/uL (0.0-0.7) Basophils # (Auto) 0.0 x10^3/uL (0.0-0.2) Segmented Neutrophils % 69 % (35-66) Band Neutrophils % 22 % (0-9) Lymphocytes % 4 % (24-48) Monocytes % 3 % (0-10) Metamyelocytes % 1 % (0-0) Myelocytes % 1 % (0-0) Toxic Granulation Slight Platelet Estimate Adequate (ADEQUATE) Polychromasia Slight Hypochromasia Mod Anisocytosis Marked Microcytosis Mod Ovalocytes Few Schistocytes Occ Test 03/05/20 16:55 03/06/20 05:00 O2 Saturation 99 % (92-99) Arterial Blood pH 7.40 (7.35-7.45) Arterial Blood pCO2 at Patient Temp 32 mmHg (35-46) Arterial Blood pO2 at Patient Temp 427 mmHg (65-108) Arterial Blood HCO3 20 mmol/L (21-28) Arterial Blood Base Excess -5 mmol/L (-3-3) Oxyhemoglobin 97.7 % Methemoglobin 0.3 % (0.0-1.9) Carbon Monoxide, Quantitative 0.8 % (0.0-1.9) FiO2 100 White Blood Count 19.6 x10^3/uL (4.0-11.0) Red Blood Count 4.07 x10^6/uL (4.30-5.70) Hemoglobin 9.4 g/dL (13.0-17.5) Hematocrit 29.9 % (39.0-53.0) Mean Corpuscular Volume 73 fL (79-100) Mean Corpuscular Hemoglobin 23 pg (25-35) Mean Corpuscular Hemoglobin Concent 32 g/dL (31-37) Red Cell Distribution Width 29.7 % (11.5-14.5) Platelet Count 301 x10^3/uL (140-400) Neutrophils (%) (Auto) 91 % (31-73) Lymphocytes (%) (Auto) 4 % (24-48) Monocytes (%) (Auto) 5 % (0-9) Eosinophils (%) (Auto) 0 % (0-3) Basophils (%) (Auto) 0 % (0-3) Neutrophils # (Auto) 17.9 x10^3/uL (1.8-7.7) Lymphocytes # (Auto) 0.7 x10^3/uL (1.0-4.8) Monocytes # (Auto) 1.0 x10^3/uL (0.0-1.1) Eosinophils # (Auto) 0.0 x10^3/uL (0.0-0.7) Basophils # (Auto) 0.0 x10^3/uL (0.0-0.2) Sodium Level 131 mmol/L (136-145) Potassium Level 4.2 mmol/L (3.5-5.1) Chloride Level 101 mmol/L (98-107) Carbon Dioxide Level 20 mmol/L (21-32) Anion Gap 10 (6-14) Blood Urea Nitrogen 40 mg/dL (8-26) Creatinine 1.1 mg/dL (0.7-1.3) Estimated GFR (Cockcroft-Gault) 66.0 BUN/Creatinine Ratio 36 (6-20) Glucose Level 167 mg/dL (70-99) Calcium Level 6.6 mg/dL (8.5-10.1) Total Bilirubin 0.9 mg/dL (0.2-1.0) Aspartate Amino Transf (AST/SGOT) 25 U/L (15-37) Alanine Aminotransferase (ALT/SGPT) 23 U/L (16-63) Alkaline Phosphatase 110 U/L (46-116) Total Protein 3.8 g/dL (6.4-8.2) Albumin 1.5 g/dL (3.4-5.0) Albumin/Globulin Ratio 0.7 (1.0-1.7) Assessment and Plan Assessmemt and Plan Problems Medical Problems: (1) Anemia Status: Acute (2) Colonic mass Status: Acute (3) Fatigue Status: Acute (4) Hypocalcemia Status: Acute (5) Nausea & vomiting Status: Acute (6) SBO (small bowel obstruction) Status: Acute Comment Review of Relevant I have reviewed the following items radhames (where applicable) has been applied. Labs Laboratory Tests Test 03/04/20 22:45 03/05/20 03:45 03/05/20 12:48 03/05/20 13:03 White Blood Count 11.4 x10^3/uL (4.0-11.0) 11.2 x10^3/uL (4.0-11.0) Red Blood Count 4.20 x10^6/uL (4.30-5.70) 4.12 x10^6/uL (4.30-5.70) Hemoglobin 9.3 g/dL (13.0-17.5) 9.2 g/dL (13.0-17.5) Hematocrit 29.9 % (39.0-53.0) 29.4 % (39.0-53.0) Mean Corpuscular Volume 71 fL (79-100) 71 fL (79-100) Mean Corpuscular Hemoglobin 22 pg (25-35) 22 pg (25-35) Mean Corpuscular Hemoglobin Concent 31 g/dL (31-37) 31 g/dL (31-37) Red Cell Distribution Width 31.9 % (11.5-14.5) 32.0 % (11.5-14.5) Platelet Count 347 x10^3/uL (140-400) 377 x10^3/uL (140-400) Neutrophils (%) (Auto) 85 % (31-73) 85 % (31-73) Lymphocytes (%) (Auto) 4 % (24-48) 5 % (24-48) Monocytes (%) (Auto) 11 % (0-9) 10 % (0-9) Eosinophils (%) (Auto) 0 % (0-3) 0 % (0-3) Basophils (%) (Auto) 0 % (0-3) 0 % (0-3) Neutrophils # (Auto) 9.6 x10^3/uL (1.8-7.7) 9.5 x10^3/uL (1.8-7.7) Lymphocytes # (Auto) 0.5 x10^3/uL (1.0-4.8) 0.6 x10^3/uL (1.0-4.8) Monocytes # (Auto) 1.3 x10^3/uL (0.0-1.1) 1.2 x10^3/uL (0.0-1.1) Eosinophils # (Auto) 0.0 x10^3/uL (0.0-0.7) 0.0 x10^3/uL (0.0-0.7) Basophils # (Auto) 0.0 x10^3/uL (0.0-0.2) 0.0 x10^3/uL (0.0-0.2) Sodium Level 132 mmol/L (136-145) Potassium Level 4.0 mmol/L (3.5-5.1) Chloride Level 100 mmol/L (98-107) Carbon Dioxide Level 23 mmol/L (21-32) Anion Gap 9 (6-14) Blood Urea Nitrogen 39 mg/dL (8-26) Creatinine 0.7 mg/dL (0.7-1.3) Estimated GFR (Cockcroft-Gault) 111.2 BUN/Creatinine Ratio 56 (6-20) Glucose Level 92 mg/dL (70-99) 87 mg/dL (70-99) Calcium Level 6.6 mg/dL (8.5-10.1) Total Bilirubin 0.5 mg/dL (0.2-1.0) Aspartate Amino Transf (AST/SGOT) 26 U/L (15-37) Alanine Aminotransferase (ALT/SGPT) 28 U/L (16-63) Alkaline Phosphatase 197 U/L (46-116) Total Protein 4.7 g/dL (6.4-8.2) Albumin 1.2 g/dL (3.4-5.0) Albumin/Globulin Ratio 0.3 (1.0-1.7) Glucose (Fingerstick) 86 mg/dL (70-99) Bedside Hematocrit 28 % (37-52) Arterial Blood pH (Temp corrected) 7.34 Arterial Blood pCO2 (Temp correct) 44 mmHg Arterial Blood pO2 (Temp corrected) 23 mmHg Bedside Venous pH 7.33 (7.32-7.42) Bedside Venous pCO2 46 mmHg (41-51) Bedside Venous pO2 24 mmHg (20-40) Bedside Venous HCO3 24 mmol/L (24-28) Bedside Venous Blood Total CO2 25 mmol/L (21-32) Bedside Venous Blood O2 Saturation 39 % Bedside Venous Blood Base Excess -2 mmol/L (0-3) POC Venous Hemoglobin (Calc) 9.5 g/dL (14-18) Bedside FiO2 50 Bedside Sodium 133 mmol/L (135-145) Bedside Potassium 4.6 mmol/L (3.5-5.0) Bedside Ionized Calcium (Pily) 1.03 mmol/L (1.13-1.32) Test 03/05/20 15:40 03/05/20 16:15 03/05/20 16:55 03/06/20 05:00 Sodium Level 133 mmol/L (136-145) 131 mmol/L (136-145) Potassium Level 4.2 mmol/L (3.5-5.1) 4.2 mmol/L (3.5-5.1) Chloride Level 102 mmol/L (98-107) 101 mmol/L (98-107) Carbon Dioxide Level 20 mmol/L (21-32) 20 mmol/L (21-32) Anion Gap 11 (6-14) 10 (6-14) Blood Urea Nitrogen 40 mg/dL (8-26) 40 mg/dL (8-26) Creatinine 1.0 mg/dL (0.7-1.3) 1.1 mg/dL (0.7-1.3) Estimated GFR (Cockcroft-Gault) 73.7 66.0 Glucose Level 95 mg/dL (70-99) 167 mg/dL (70-99) Calcium Level 6.8 mg/dL (8.5-10.1) 6.6 mg/dL (8.5-10.1) White Blood Count 3.8 x10^3/uL (4.0-11.0) 19.6 x10^3/uL (4.0-11.0) Red Blood Count 3.38 x10^6/uL (4.30-5.70) 4.07 x10^6/uL (4.30-5.70) Hemoglobin 7.7 g/dL (13.0-17.5) 9.4 g/dL (13.0-17.5) Hematocrit 24.7 % (39.0-53.0) 29.9 % (39.0-53.0) Mean Corpuscular Volume 73 fL (79-100) 73 fL (79-100) Mean Corpuscular Hemoglobin 23 pg (25-35) 23 pg (25-35) Mean Corpuscular Hemoglobin Concent 31 g/dL (31-37) 32 g/dL (31-37) Red Cell Distribution Width 31.6 % (11.5-14.5) 29.7 % (11.5-14.5) Platelet Count 285 x10^3/uL (140-400) 301 x10^3/uL (140-400) Neutrophils (%) (Auto) 88 % (31-73) 91 % (31-73) Lymphocytes (%) (Auto) 7 % (24-48) 4 % (24-48) Monocytes (%) (Auto) 5 % (0-9) 5 % (0-9) Eosinophils (%) (Auto) 0 % (0-3) 0 % (0-3) Basophils (%) (Auto) 0 % (0-3) 0 % (0-3) Neutrophils # (Auto) 3.3 x10^3/uL (1.8-7.7) 17.9 x10^3/uL (1.8-7.7) Lymphocytes # (Auto) 0.3 x10^3/uL (1.0-4.8) 0.7 x10^3/uL (1.0-4.8) Monocytes # (Auto) 0.2 x10^3/uL (0.0-1.1) 1.0 x10^3/uL (0.0-1.1) Eosinophils # (Auto) 0.0 x10^3/uL (0.0-0.7) 0.0 x10^3/uL (0.0-0.7) Basophils # (Auto) 0.0 x10^3/uL (0.0-0.2) 0.0 x10^3/uL (0.0-0.2) Segmented Neutrophils % 69 % (35-66) Band Neutrophils % 22 % (0-9) Lymphocytes % 4 % (24-48) Monocytes % 3 % (0-10) Metamyelocytes % 1 % (0-0) Myelocytes % 1 % (0-0) Toxic Granulation Slight Platelet Estimate Adequate (ADEQUATE) Polychromasia Slight Hypochromasia Mod Anisocytosis Marked Microcytosis Mod Ovalocytes Few Schistocytes Occ O2 Saturation 99 % (92-99) Arterial Blood pH 7.40 (7.35-7.45) Arterial Blood pCO2 at Patient Temp 32 mmHg (35-46) Arterial Blood pO2 at Patient Temp 427 mmHg (65-108) Arterial Blood HCO3 20 mmol/L (21-28) Arterial Blood Base Excess -5 mmol/L (-3-3) Oxyhemoglobin 97.7 % Methemoglobin 0.3 % (0.0-1.9) Carbon Monoxide, Quantitative 0.8 % (0.0-1.9) FiO2 100 BUN/Creatinine Ratio 36 (6-20) Total Bilirubin 0.9 mg/dL (0.2-1.0) Aspartate Amino Transf (AST/SGOT) 25 U/L (15-37) Alanine Aminotransferase (ALT/SGPT) 23 U/L (16-63) Alkaline Phosphatase 110 U/L (46-116) Total Protein 3.8 g/dL (6.4-8.2) Albumin 1.5 g/dL (3.4-5.0) Albumin/Globulin Ratio 0.7 (1.0-1.7) Laboratory Tests Test 03/05/20 12:48 03/05/20 13:03 03/05/20 15:40 03/05/20 16:15 Glucose (Fingerstick) 86 mg/dL (70-99) Bedside Hematocrit 28 % (37-52) Arterial Blood pH (Temp corrected) 7.34 Arterial Blood pCO2 (Temp correct) 44 mmHg Arterial Blood pO2 (Temp corrected) 23 mmHg Bedside Venous pH 7.33 (7.32-7.42) Bedside Venous pCO2 46 mmHg (41-51) Bedside Venous pO2 24 mmHg (20-40) Bedside Venous HCO3 24 mmol/L (24-28) Bedside Venous Blood Total CO2 25 mmol/L (21-32) Bedside Venous Blood O2 Saturation 39 % Bedside Venous Blood Base Excess -2 mmol/L (0-3) POC Venous Hemoglobin (Calc) 9.5 g/dL (14-18) Bedside FiO2 50 Bedside Sodium 133 mmol/L (135-145) Bedside Potassium 4.6 mmol/L (3.5-5.0) Glucose Level 87 mg/dL (70-99) 95 mg/dL (70-99) Bedside Ionized Calcium (Pily) 1.03 mmol/L (1.13-1.32) Sodium Level 133 mmol/L (136-145) Potassium Level 4.2 mmol/L (3.5-5.1) Chloride Level 102 mmol/L (98-107) Carbon Dioxide Level 20 mmol/L (21-32) Anion Gap 11 (6-14) Blood Urea Nitrogen 40 mg/dL (8-26) Creatinine 1.0 mg/dL (0.7-1.3) Estimated GFR (Cockcroft-Gault) 73.7 Calcium Level 6.8 mg/dL (8.5-10.1) White Blood Count 3.8 x10^3/uL (4.0-11.0) Red Blood Count 3.38 x10^6/uL (4.30-5.70) Hemoglobin 7.7 g/dL (13.0-17.5) Hematocrit 24.7 % (39.0-53.0) Mean Corpuscular Volume 73 fL (79-100) Mean Corpuscular Hemoglobin 23 pg (25-35) Mean Corpuscular Hemoglobin Concent 31 g/dL (31-37) Red Cell Distribution Width 31.6 % (11.5-14.5) Platelet Count 285 x10^3/uL (140-400) Neutrophils (%) (Auto) 88 % (31-73) Lymphocytes (%) (Auto) 7 % (24-48) Monocytes (%) (Auto) 5 % (0-9) Eosinophils (%) (Auto) 0 % (0-3) Basophils (%) (Auto) 0 % (0-3) Neutrophils # (Auto) 3.3 x10^3/uL (1.8-7.7) Lymphocytes # (Auto) 0.3 x10^3/uL (1.0-4.8) Monocytes # (Auto) 0.2 x10^3/uL (0.0-1.1) Eosinophils # (Auto) 0.0 x10^3/uL (0.0-0.7) Basophils # (Auto) 0.0 x10^3/uL (0.0-0.2) Segmented Neutrophils % 69 % (35-66) Band Neutrophils % 22 % (0-9) Lymphocytes % 4 % (24-48) Monocytes % 3 % (0-10) Metamyelocytes % 1 % (0-0) Myelocytes % 1 % (0-0) Toxic Granulation Slight Platelet Estimate Adequate (ADEQUATE) Polychromasia Slight Hypochromasia Mod Anisocytosis Marked Microcytosis Mod Ovalocytes Few Schistocytes Occ Test 03/05/20 16:55 03/06/20 05:00 O2 Saturation 99 % (92-99) Arterial Blood pH 7.40 (7.35-7.45) Arterial Blood pCO2 at Patient Temp 32 mmHg (35-46) Arterial Blood pO2 at Patient Temp 427 mmHg (65-108) Arterial Blood HCO3 20 mmol/L (21-28) Arterial Blood Base Excess -5 mmol/L (-3-3) Oxyhemoglobin 97.7 % Methemoglobin 0.3 % (0.0-1.9) Carbon Monoxide, Quantitative 0.8 % (0.0-1.9) FiO2 100 White Blood Count 19.6 x10^3/uL (4.0-11.0) Red Blood Count 4.07 x10^6/uL (4.30-5.70) Hemoglobin 9.4 g/dL (13.0-17.5) Hematocrit 29.9 % (39.0-53.0) Mean Corpuscular Volume 73 fL (79-100) Mean Corpuscular Hemoglobin 23 pg (25-35) Mean Corpuscular Hemoglobin Concent 32 g/dL (31-37) Red Cell Distribution Width 29.7 % (11.5-14.5) Platelet Count 301 x10^3/uL (140-400) Neutrophils (%) (Auto) 91 % (31-73) Lymphocytes (%) (Auto) 4 % (24-48) Monocytes (%) (Auto) 5 % (0-9) Eosinophils (%) (Auto) 0 % (0-3) Basophils (%) (Auto) 0 % (0-3) Neutrophils # (Auto) 17.9 x10^3/uL (1.8-7.7) Lymphocytes # (Auto) 0.7 x10^3/uL (1.0-4.8) Monocytes # (Auto) 1.0 x10^3/uL (0.0-1.1) Eosinophils # (Auto) 0.0 x10^3/uL (0.0-0.7) Basophils # (Auto) 0.0 x10^3/uL (0.0-0.2) Sodium Level 131 mmol/L (136-145) Potassium Level 4.2 mmol/L (3.5-5.1) Chloride Level 101 mmol/L (98-107) Carbon Dioxide Level 20 mmol/L (21-32) Anion Gap 10 (6-14) Blood Urea Nitrogen 40 mg/dL (8-26) Creatinine 1.1 mg/dL (0.7-1.3) Estimated GFR (Cockcroft-Gault) 66.0 BUN/Creatinine Ratio 36 (6-20) Glucose Level 167 mg/dL (70-99) Calcium Level 6.6 mg/dL (8.5-10.1) Total Bilirubin 0.9 mg/dL (0.2-1.0) Aspartate Amino Transf (AST/SGOT) 25 U/L (15-37) Alanine Aminotransferase (ALT/SGPT) 23 U/L (16-63) Alkaline Phosphatase 110 U/L (46-116) Total Protein 3.8 g/dL (6.4-8.2) Albumin 1.5 g/dL (3.4-5.0) Albumin/Globulin Ratio 0.7 (1.0-1.7) Microbiology 03/02/20 Urine Culture - Final, Complete Medications Current Medications Sodium Chloride 1,000 ml @ 1,000 mls/hr 1X ONCE IV Last administered on 03/02/20at 17:05; Start 03/02/20 at 16:45; Stop 03/02/20 at 17:44; Status DC Calcium Gluconate (Calcium Gluconate) 1,000 mg 1X ONCE IVP Last administered on 03/02/20at 18:21; Start 03/02/20 at 18:15; Stop 03/02/20 at 18:18; Status DC Iohexol (Omnipaque 300 Mg/ml) 75 ml 1X ONCE IV Last administered on 03/02/20at 18:34; Start 03/02/20 at 18:30; Stop 03/02/20 at 18:31; Status DC Pantoprazole Sodium (PROTONIX VIAL for IV PUSH) 40 mg 1X ONCE IVP Last administered on 03/02/20at 18:41; Start 03/02/20 at 18:45; Stop 03/02/20 at 18:46; Status DC Sodium Chloride 1,000 ml @ 100 mls/hr 1X ONCE IV Last administered on 03/02at 19:04; Start 03/02/20 at 18:45; Stop 03/03/20 at 04:44; Status DC Enoxaparin Sodium (Lovenox Per Pharmacy Prophylaxis Dosing) 1 each PRN DAILY PRN MC SEE COMMENTS; Start 03/02/20 at 20:30; Status Cancel Enoxaparin Sodium (Lovenox 40mg Syringe) 40 mg Q24H SQ Last administered on 03/02/20at 23:48; Start 03/02/20 at 21:00; Stop 03/03/20 at 08:48; Status DC Tamsulosin HCl (Flomax) 0.4 mg HS PO Last administered on 03/04/20at 21:03; Start 03/02/20 at 23:45 Sodium Chloride 1,000 ml @ 100 mls/hr Q10H IV Last administered on 03/03/20at 11:07; Start 03/03/20 at 10:00; Stop 03/03/20 at 14:58; Status DC Ondansetron HCl (Zofran) 4 mg PRN Q4HRS PRN IV NAUSEA/VOMITING Last administered on 03/04/20at 22:31; Start 03/03/20 at 09:45; Stop 03/05/20 at 16:15; Status DC Acetaminophen (Tylenol Supp) 650 mg PRN Q4HRS PRN WI TEMP OVER 100.4F OR MILD PAIN; Start 03/03/20 at 09:45 Polyethylene Glycol (miraLAX PACKET) 17 gm DAILY PO Last administered on 03/04/20at 09:21; Start 03/03/20 at 10:00 Bisacodyl (Dulcolax Supp) 10 mg PRN DAILY PRN [place] CONSTIPATION; Start 03/03/20 at 09:45 Bisacodyl (Dulcolax Tab) 10 mg PRN DAILY PRN PO CONSTIPATION Last administered on 03/03/20at 13:47; Start 03/03/20 at 09:45 Psyllium Hydrophilic Mucilloid (Metamucil Fiber Packet) 1 pkt QHS PO Last administered on 03/04/20at 21:03; Start 03/03/20 at 21:00 Polyethylene Glycol (miraLAX PACKET) 17 gm QHS PO Last administered on 03/04/20at 21:03; Start 03/03/20 at 21:00 Docusate Sodium (Colace) 100 mg DAILY PO Last administered on 03/04/20at 09:21; Start 03/03/20 at 12:00 Amino Acids/ Glycerin/ Electrolytes 1,000 ml @ 80 mls/hr [id number] IV Last administered on 03/06/20at 01:07; Start 03/03/20 at 15:00 Furosemide (Lasix) 40 mg 1X ONCE IVP Last administered on 03/03/20at 16:48; Start 03/03/20 at 15:00; Stop 03/03/20 at 15:01; Status DC Iohexol (Omnipaque 300 Mg/ml) 75 ml 1X ONCE IV Last administered on 03/03/20at 16:33; Start 03/03/20 at 16:15; Stop 03/03/20 at 16:16; Status DC Info (CONTRAST GIVEN -- Rx MONITORING) 1 each PRN DAILY PRN MC SEE COMMENTS; Start 03/03/20 at 16:15; Stop 03/05/20 at 16:15; Status DC Bisacodyl (Dulcolax Supp) 10 mg 1X ONCE [place] Last administered on 03/04/20at 12:18; Start 03/04/20 at 10:00; Stop 03/04/20 at 10:05; Status DC Cefoxitin Sodium (Mefoxin) 2 gm 1X PREOP IVP Last administered on 03/05/20at 13:09; Start 03/05/20 at 10:00 Lidocaine (Lidoderm) 1 patch DAILY TD ; Start 03/04/20 at 16:30; Status Cancel Miscellaneous (Lidoderm Patch Removal) 1 ea QHS MC ; Start 03/04/20 at 21:00; Status Cancel Ondansetron HCl (Zofran) 4 mg PRN Q6HRS PRN IVP NAUSEA/VOMITING; Start 03/05/20 at 07:15; Stop 03/05/20 at 20:00; Status DC Fentanyl Citrate (Fentanyl 2ml Vial) 25 mcg PRN Q5MIN PRN IVP MILD PAIN 1-3; Start 03/05/20 at 07:15; Stop 03/05/20 at 20:00; Status DC Fentanyl Citrate (Fentanyl 2ml Vial) 50 mcg PRN Q5MIN PRN IVP MODERATE TO SEVERE PAIN; Start 03/05/20 at 07:15; Stop 03/05/20 at 20:00; Status DC Morphine Sulfate (Morphine Sulfate) 1 mg PRN Q10MIN PRN IVP SEVERE PAIN 7-10; Start 03/05/20 at 07:15; Stop 03/05/20 at 20:00; Status DC Ringer's Solution 1,000 ml @ 30 mls/hr Q24H IV Last administered on 03/05/20at 09:59; Start 03/05/20 at 07:05; Stop 03/05/20 at 19:04; Status DC Lidocaine HCl (Xylocaine-Mpf 1% 2ml Vial) 2 ml 1X PRN PRN ID IV START; Start 03/05/20 at 07:15; Stop 03/05/20 at 20:00; Status DC Hydromorphone HCl (Dilaudid) 0.5 mg PRN Q10MIN PRN IVP SEV PAIN, Second choice; Start 03/05/20 at 07:15; Stop 03/05/20 at 20:00; Status DC Prochlorperazine Edisylate (Compazine) 5 mg PACU PRN PRN IVP NAUSEA, MRX1; Start 03/05/20 at 07:15; Stop 03/06/20 at 07:14; Status DC Pantoprazole Sodium (PROTONIX VIAL for IV PUSH) 40 mg DAILYAC IVP Last administered on 03/06/20at 07:41; Start 03/05/20 at 10:30 Propofol (Diprivan) 200 mg STK-MED ONCE IV ; Start 03/05/20 at 10:23; Stop 03/05/20 at 10:23; Status DC Lidocaine HCl (Lidocaine Pf 2% Vial) 5 ml STK-MED ONCE .ROUTE ; Start 03/05/20 at 10:23; Stop 03/05/20 at 10:23; Status DC Ondansetron HCl (Zofran) 4 mg STK-MED ONCE .ROUTE ; Start 03/05/20 at 10:23; Stop 03/05/20 at 10:23; Status DC Dexamethasone Sodium Phosphate (Decadron) 4 mg STK-MED ONCE .ROUTE ; Start 03/05/20 at 10:23; Stop 03/05/20 at 10:23; Status DC Succinylcholine Chloride (Anectine) 200 mg STK-MED ONCE .ROUTE ; Start 03/05/20 at 10:23; Stop 03/05/20 at 10:23; Status DC Rocuronium Nevis (Zemuron) 50 mg STK-MED ONCE .ROUTE ; Start 03/05/20 at 10:24; Stop 03/05/20 at 10:24; Status DC Fentanyl Citrate (Fentanyl 2ml Vial) 100 mcg STK-MED ONCE .ROUTE ; Start 03/05/20 at 10:24; Stop 03/05/20 at 10:24; Status DC Iohexol (Omnipaque 300 Mg/ml) 50 ml STK-MED ONCE .ROUTE Last administered on 03/05/20at 11:43; Start 03/05/20 at 10:41; Stop 03/05/20 at 10:41; Status DC Bupivacaine HCl/ Epinephrine Bitart (Sensorcain-Epi 0.5%-1:[id number] Mpf) 30 ml STK-MED ONCE .ROUTE ; Start 03/05/20 at 10:42; Stop 03/05/20 at 10:42; Status DC Phenylephrine HCl (PHENYLEPHRINE in 0.9% NACL PF) 1 mg STK-MED ONCE IV ; Start 03/05/20 at 12:13; Stop 03/05/20 at 12:14; Status DC Ephedrine Sulfate (ePHEDrine PF IN SALINE SYRINGE) 50 mg STK-MED ONCE IV ; Start 03/05/20 at 12:13; Stop 03/05/20 at 12:14; Status DC Phenylephrine HCl (Devin-Synephrine Inj) 10 mg STK-MED ONCE .ROUTE ; Start 03/05/20 at 12:15; Stop 03/05/20 at 12:15; Status DC Rocuronium Nevis (Zemuron) 50 mg STK-MED ONCE .ROUTE ; Start 03/05/20 at 12:27; Stop 03/05/20 at 12:27; Status DC Cefoxitin Sodium (Mefoxin) 1 gm STK-MED ONCE IVP ; Start 03/05/20 at 12:57; Stop 03/05/20 at 12:57; Status DC Albumin Human 500 ml @ As Directed STK-MED ONCE IV ; Start 03/05/20 at 13:08; Stop 03/05/20 at 13:08; Status DC Albumin Human 500 ml @ As Directed STK-MED ONCE IV ; Start 03/05/20 at 13:13; Stop 03/05/20 at 13:14; Status DC Phenylephrine HCl (Devin-Synephrine Inj) 10 mg STK-MED ONCE .ROUTE ; Start 03/05/20 at 13:35; Stop 03/05/20 at 13:35; Status DC Phenylephrine HCl (Devin-Synephrine Inj) 10 mg STK-MED ONCE .ROUTE ; Start 03/05/20 at 13:48; Stop 03/05/20 at 13:49; Status DC Sevoflurane (Ultane) 90 ml STK-MED ONCE IH ; Start 03/05/20 at 14:30; Stop 03/05/20 at 14:30; Status DC Phenylephrine HCl (Devin-Synephrine Inj) 10 mg STK-MED ONCE .ROUTE ; Start 03/05/20 at 14:35; Stop 03/05/20 at 14:36; Status DC Midazolam HCl 100 mg/Sodium Chloride 100 ml @ 1 mls/hr CONT PRN IV SEE I/O RECORD Last administered on 03/06/20at 07:40; Start 03/05/20 at 15:15 Fentanyl Citrate 30 ml @ 2.5 mls/hr CONT PRN PRN IV PER PROTOCOL Last administered on 03/06/20at 03:45; Start 03/05/20 at 15:15 Naloxone HCl (Narcan) 0.4 mg PRN Q2MIN PRN IV SEE INSTRUCTIONS; Start 03/05/20 at 15:15 Sodium Chloride 1,000 ml @ 25 mls/hr Q24H IV ; Start 03/05/20 at 15:13 Norepinephrine Bitartrate 8 mg/ Dextrose 258 ml @ 15.287 mls/ hr CONT PRN IV PER PROTOCOL Last administered on 03/06/20at 08:28; Start 03/05/20 at 15:30 Enoxaparin Sodium (Lovenox 40mg Syringe) 40 mg Q24H SQ ; Start 03/06/20 at 08:00 Sodium Chloride (Normal Saline Flush) 3 ml QSHIFT PRN IV AFTER MEDS AND BLOOD DRAWS; Start 03/05/20 at 16:15 Ringer's Solution 1,000 ml @ 100 mls/hr Q10H IV Last administered on 03/05/20at 22:03; Start 03/05/20 at 16:09 Naloxone HCl (Narcan) 0.4 mg PRN Q2MIN PRN IV SEE INSTRUCTIONS; Start 03/05/20 at 16:15 Sodium Chloride 1,000 ml @ 25 mls/hr Q24H IV ; Start 03/05/20 at 16:09 Morphine Sulfate 30 ml @ 0 mls/hr CONT PRN PRN IV PER PROTOCOL; Start 03/05/20 at 16:15 Ondansetron HCl (Zofran) 4 mg PRN Q6HRS PRN IVP NAUESA, 1ST CHOICE; Start 03/05/20 at 16:15 Piperacillin Sod/ Tazobactam Sod 3.375 gm/Sodium Chloride 50 ml @ 100 mls/hr Q6HRS IV Last administered on 03/06/20at 06:00; Start 03/05/20 at 17:00 Ringer's Solution 1,000 ml @ 999 mls/hr 1X ONCE IV Last administered on 03/05/20at 20:59; Start 03/05/20 at 20:00; Stop 03/05/20 at 21:00; Status DC Vasopressin 20 unit/Dextrose 101 ml @ 12 mls/hr CONT PRN IV SEE I/O RECORD; Start 03/05/20 at 20:00 Ringer's Solution 1,000 ml @ 999 mls/hr 1X ONCE IV Last administered on 03/06/20at 01:07; Start 03/06/20 at 01:00; Stop 03/06/20 at 02:00; Status DC Ringer's Solution 1,000 ml @ 999 mls/hr 1X ONCE IV Last administered on 03/06/20at 05:18; Start 03/06/20 at 05:00; Stop 03/06/20 at 06:00; Status DC Active Scripts Active Reported Flomax (Tamsulosin Hcl) 0.4 Mg Cap.er.24h 1 Cap PO QHS Vitals/I & O Vital Sign - Last 24 Hours 03/05/20 03/05/20 03/05/20 03/05/20 09:53 14:50 14:50 15:00 Temp 97.3 97.8 97.3 97.8 Pulse 121 112 115 Resp 15 20 20 B/P (MAP) 104/75 73/40 90/50 Pulse Ox 98 100 99 99 O2 Delivery Room Air Ventilator Ventilator Ventilator 03/05/20 03/05/20 03/05/20 03/05/20 15:10 15:25 15:40 15:50 Pulse 112 112 114 112 Resp 20 20 20 20 B/P (MAP) 106/70 106/70 101/68 84/57 Pulse Ox 100 100 100 100 O2 Delivery Ventilator Ventilator Ventilator Ventilator 03/05/20 03/05/20 03/05/20 03/05/20 16:00 16:00 16:15 16:55 Pulse 112 110 Resp 16 16 B/P (MAP) 84/57 (66) 97/70 (79) Pulse Ox 100 100 100 O2 Delivery Mechanical Ventilator Ventilator Ventilator Ventilator 03/05/20 03/05/20 03/05/20 03/05/20 17:00 17:15 17:30 17:45 Pulse 106 108 110 112 Resp 16 16 16 16 B/P (MAP) 46/36 (39) 66/43 (51) 82/57 (65) Pulse Ox 100 100 100 100 O2 Delivery Ventilator Ventilator Ventilator Ventilator 03/05/20 03/05/20 03/05/20 03/05/20 18:00 18:15 18:30 18:45 Pulse 114 116 114 122 Resp 16 16 16 16 B/P (MAP) 83/52 (62) Pulse Ox 100 100 100 100 O2 Delivery Ventilator Ventilator Ventilator Ventilator 03/05/20 03/05/20 03/05/20 03/05/20 19:00 19:15 19:30 20:00 Pulse 124 124 124 Resp 16 16 16 B/P (MAP) Pulse Ox 100 100 100 O2 Delivery Ventilator Ventilator Ventilator Mechanical Ventilator 03/05/20 03/05/20 03/05/20 03/05/20 20:00 20:15 20:20 20:30 Temp 97.7 97.7 97.7 97.7 Pulse 130 124 132 Resp 16 16 16 B/P (MAP) 79/58 Pulse Ox 100 100 O2 Delivery Ventilator Ventilator Ventilator 03/05/20 03/05/20 03/05/20 03/05/20 20:35 21:00 21:20 21:31 Temp 97.7 97.9 97.7 97.9 Pulse 134 128 120 120 Resp 16 16 16 B/P (MAP) 99/71 105/54 (71) Pulse Ox 100 O2 Delivery Ventilator 03/05/20 03/05/20 03/05/20 03/05/20 22:00 22:20 22:50 23:00 Temp 97.8 98.2 97.8 98.2 Pulse 108 112 125 117 Resp 16 16 16 16 B/P (MAP) 96/61 (73) 120/62 124/71 126/61 (82) Pulse Ox 100 100 O2 Delivery Ventilator Ventilator 03/05/20 03/05/20 03/06/20 03/06/20 23:05 23:42 00:00 00:00 Temp 98.2 99.1 98.2 99.1 Pulse 119 128 Resp 16 16 B/P (MAP) 112/62 88/44 (59) Pulse Ox 100 100 O2 Delivery Ventilator Mechanical Ventilator Ventilator 03/06/20 03/06/20 03/06/20 03/06/20 00:00 00:30 00:45 01:00 Pulse 128 132 132 119 Resp 16 16 16 B/P (MAP) 88/44 (59) 83/46 (58) 77/43 (54) 83/44 (57) Pulse Ox 100 100 100 O2 Delivery Ventilator Ventilator Ventilator 03/06/20 03/06/20 03/06/20 03/06/20 02:00 03:00 03:51 04:00 Pulse 118 103 Resp 16 16 B/P (MAP) 107/63 (78) 114/65 (81) Pulse Ox 100 100 100 O2 Delivery Ventilator Ventilator Ventilator Mechanical Ventilator 03/06/20 03/06/20 03/06/20 03/06/20 04:00 04:00 05:00 06:00 Temp 97.9 97.9 Pulse 119 119 119 101 Resp 16 16 16 B/P (MAP) 115/66 (82) 115/66 (82) 120/61 (80) 148/76 (100) Pulse Ox 100 100 100 O2 Delivery Ventilator Ventilator Ventilator 03/06/20 03/06/20 03/06/20 03/06/20 06:05 06:15 06:30 07:00 Pulse 98 101 96 109 Resp 16 16 16 16 B/P (MAP) 156/80 (105) 138/73 (94) 129/66 (87) 109/62 (78) Pulse Ox 99 100 100 100 O2 Delivery Ventilator Ventilator Ventilator Ventilator 03/06/20 08:13 Pulse Ox 100 O2 Delivery Ventilator Intake and Output 03/05/20 03/05/20 03/06/20 15:00 23:00 07:00 Intake Total 5500 ml 2678 ml 3394 ml Output Total 1980 ml 2175 ml 465 ml Balance 3520 ml 503 ml 2929 ml Nutrition Consultation Dietary Evaluation: Recommendations by RD: Dietary education by RD, Increase Calorie Intake, PPN/TP N Comments: Continue w/PPN for non-enteral, non-oral nutrition needs at this time Expected Outcomes/Goals: PPN for short-term, non-enteral nutrition needs at this time Malnutrition Findings: Food and Nutrition Intake (Mod: <75% est energy req 7days Weight Status: Appropriate TRISTIAN PIRES MD Mar 06, 2020 08:32
--- NOTE | 2020-03-06 09:09 | PDOC ---
SUBJECTIVE ROS S/P right colon resection, partial resection of duodenum ON 03/05 Intubated ,On MV , Hypotensive, remains on pressors OBJECTIVE Vital Signs Vital Signs Date Time Temp Pulse Resp B/P (MAP) Pulse Ox O2 Delivery O2 Flow Rate FiO2 03/06/20 08:13 100 Ventilator 03/06/20 07:00 109 16 109/62 (78) 03/06/20 04:00 97.9 97.9 I & 0 Intake and Output 03/06/20 07:00 Intake Total 52192 ml Output Total 4620 ml Balance 6952 ml Intake Oral 0 ml IV Total 80736 ml Blood Product 278 ml Blood Product IV Normal Saline Flush 400 ml Output Urine Total 600 ml Stool Total 400 ml Gastric Drainage Total 1850 ml Drainage Total 1520 ml Estimated Blood Loss 250 ml PHYSICAL EXAM Physical Exam General Appearance: no apparent distress HEEN Intubated Skin: warm Respiratory: decreased at bases Heart: S1S2 Abdomen: s/p Surgery Genitourinary: Booth + Neurology: Intubated DIAGNOSIS/ASSESSMENT Assessment & Plan Hyponatremia - stable GEORGES- Increase in Cr trend with eGFR >60 UOP declined , Increased gastric secretions Continue IVF , pressors, supportive care , avoid nephrotoxins 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 S/P Open right colon resection, partial resection of duodenum, placement of duodenostomy tube, cholecystectomy with cholangiogram, ghost ileostomy Anemia- sec to above , per GS HX of prostate cancer BPH Critically ill COMMENT/RELEVANT DATA Meds Current Medications Medications (Trade) Dose Ordered Sig/Faisal Start Time Stop Time Status Last Admin Dose Admin Acetaminophen (Tylenol Supp) 650 mg PRN Q4HRS PRN 03/03/20 09:45 Albumin Human 500 ml @ As Directed STK-MED ONCE 03/05/20 13:13 03/05/20 13:14 DC Amino Acids/ Glycerin/ Electrolytes 1,000 ml @ 80 mls/hr [id number] 03/03/20 15:00 03/06/20 01:07 80 MLS/HR Bisacodyl (Dulcolax Supp) 10 mg 1X ONCE 03/04/20 10:00 03/04/20 10:05 DC 03/04/20 12:18 10 MG Bisacodyl (Dulcolax Tab) 10 mg PRN DAILY PRN 03/03/20 09:45 03/03/20 13:47 10 MG Bupivacaine HCl/ Epinephrine Bitart (Sensorcain-Epi 0.5%-1:815860 Mpf) 30 ml STK-MED ONCE 03/05/20 10:42 03/05/20 10:42 DC Calcium Gluconate (Calcium Gluconate) 1,000 mg 1X ONCE 03/02/20 18:15 03/02/20 18:18 DC 03/02/20 18:21 1,000 MG Cefoxitin Sodium (Mefoxin) 1 gm STK-MED ONCE 03/05/20 12:57 03/05/20 12:57 DC Dexamethasone Sodium Phosphate (Decadron) 4 mg STK-MED ONCE 03/05/20 10:23 03/05/20 10:23 DC Docusate Sodium (Colace) 100 mg DAILY 03/03/20 12:00 03/04/20 09:21 100 MG Enoxaparin Sodium (Lovenox 40mg Syringe) 40 mg Q24H 03/06/20 08:00 Enoxaparin Sodium (Lovenox Per Pharmacy Prophylaxis Dosing) 1 each PRN DAILY PRN 03/02/20 20:30 Cancel Ephedrine Sulfate (ePHEDrine PF IN SALINE SYRINGE) 50 mg STK-MED ONCE 03/05/20 12:13 03/05/20 12:14 DC Fentanyl Citrate 30 ml @ 2.5 mls/hr CONT PRN PRN 03/05/20 15:15 03/06/20 03:45 2.5 MLS/HR Fentanyl Citrate (Fentanyl 2ml Vial) 100 mcg STK-MED ONCE 03/05/20 10:24 03/05/20 10:24 DC Furosemide (Lasix) 40 mg 1X ONCE 03/03/20 15:00 03/03/20 15:01 DC 03/03/20 16:48 40 MG Hydromorphone HCl (Dilaudid) 0.5 mg PRN Q10MIN PRN 03/05/20 07:15 03/05/20 20:00 DC Info (CONTRAST GIVEN -- Rx MONITORING) 1 each PRN DAILY PRN 03/03/20 16:15 03/05/20 16:15 DC Iohexol (Omnipaque 300 Mg/ml) 50 ml STK-MED ONCE 03/05/20 10:41 03/05/20 10:41 DC 03/05/20 11:43 27 ML Lidocaine (Lidoderm) 1 patch DAILY 03/04/20 16:30 Cancel Lidocaine HCl (Lidocaine Pf 2% Vial) 5 ml STK-MED ONCE 03/05/20 10:23 03/05/20 10:23 DC Lidocaine HCl (Xylocaine-Mpf 1% 2ml Vial) 2 ml 1X PRN PRN 03/05/20 07:15 03/05/20 20:00 DC Midazolam HCl 100 mg/Sodium Chloride 100 ml @ 1 mls/hr CONT PRN 03/05/20 15:15 03/06/20 07:40 5 MLS/HR Miscellaneous (Lidoderm Patch Removal) 1 ea QHS 03/04/20 21:00 Cancel Morphine Sulfate 30 ml @ 0 mls/hr CONT PRN PRN 03/05/20 16:15 Morphine Sulfate (Morphine Sulfate) 1 mg PRN Q10MIN PRN 03/05/20 07:15 03/05/20 20:00 DC Naloxone HCl (Narcan) 0.4 mg PRN Q2MIN PRN 03/05/20 16:15 Norepinephrine Bitartrate 8 mg/ Dextrose 258 ml @ 15.287 mls/ hr CONT PRN 03/05/20 15:30 03/06/20 08:28 61.146 MLS/HR Ondansetron HCl (Zofran) 4 mg PRN Q6HRS PRN 03/05/20 16:15 Pantoprazole Sodium (PROTONIX VIAL for IV PUSH) 40 mg DAILYAC 03/05/20 10:30 03/06/20 07:41 40 MG Phenylephrine HCl (Devin-Synephrine Inj) 10 mg STK-MED ONCE 03/05/20 14:35 03/05/20 14:36 DC Phenylephrine HCl (PHENYLEPHRINE in 0.9% NACL PF) 1 mg STK-MED ONCE 03/05/20 12:13 03/05/20 12:14 DC Piperacillin Sod/ Tazobactam Sod 3.375 gm/Sodium Chloride 50 ml @ 100 mls/hr Q6HRS 03/05/20 17:00 03/06/20 06:00 100 MLS/HR Polyethylene Glycol (miraLAX PACKET) 17 gm QHS 03/03/20 21:00 03/04/20 21:03 17 GM Prochlorperazine Edisylate (Compazine) 5 mg PACU PRN PRN 03/05/20 07:15 03/06/20 07:14 DC Propofol (Diprivan) 200 mg STK-MED ONCE 03/05/20 10:23 03/05/20 10:23 DC Psyllium Hydrophilic Mucilloid (Metamucil Fiber Packet) 1 pkt QHS 03/03/20 21:00 03/04/20 21:03 1 PKT Ringer's Solution 1,000 ml @ 999 mls/hr 1X ONCE 03/06/20 05:00 03/06/20 06:00 DC 03/06/20 05:18 999 MLS/HR Rocuronium [place] (Zemuron) 50 mg STK-MED ONCE 03/05/20 12:27 03/05/20 12:27 DC Sevoflurane (Ultane) 90 ml STK-MED ONCE 03/05/20 14:30 03/05/20 14:30 DC Sodium Chloride 1,000 ml @ 25 mls/hr Q24H 03/05/20 16:09 Sodium Chloride (Normal Saline Flush) 3 ml QSHIFT PRN 03/05/20 16:15 Succinylcholine Chloride (Anectine) 200 mg STK-MED ONCE 03/05/20 10:23 03/05/20 10:23 DC Tamsulosin HCl (Flomax) 0.4 mg HS 03/02/20 23:45 03/04/20 21:03 0.4 MG Vasopressin 20 unit/Dextrose 101 ml @ 12 mls/hr CONT PRN 03/05/20 20:00 Lab Laboratory Tests Test 03/05/20 12:48 03/05/20 13:03 03/05/20 15:40 03/05/20 16:15 Glucose (Fingerstick) 86 mg/dL (70-99) Bedside Hematocrit 28 % (37-52) Arterial Blood pH (Temp corrected) 7.34 Arterial Blood pCO2 (Temp correct) 44 mmHg Arterial Blood pO2 (Temp corrected) 23 mmHg Bedside Venous pH 7.33 (7.32-7.42) Bedside Venous pCO2 46 mmHg (41-51) Bedside Venous pO2 24 mmHg (20-40) Bedside Venous HCO3 24 mmol/L (24-28) Bedside Venous Blood Total CO2 25 mmol/L (21-32) Bedside Venous Blood O2 Saturation 39 % Bedside Venous Blood Base Excess -2 mmol/L (0-3) POC Venous Hemoglobin (Calc) 9.5 g/dL (14-18) Bedside FiO2 50 Bedside Sodium 133 mmol/L (135-145) Bedside Potassium 4.6 mmol/L (3.5-5.0) Glucose Level 87 mg/dL (70-99) 95 mg/dL (70-99) Bedside Ionized Calcium (Pily) 1.03 mmol/L (1.13-1.32) Sodium Level 133 mmol/L (136-145) Potassium Level 4.2 mmol/L (3.5-5.1) Chloride Level 102 mmol/L (98-107) Carbon Dioxide Level 20 mmol/L (21-32) Anion Gap 11 (6-14) Blood Urea Nitrogen 40 mg/dL (8-26) Creatinine 1.0 mg/dL (0.7-1.3) Estimated GFR (Cockcroft-Gault) 73.7 Calcium Level 6.8 mg/dL (8.5-10.1) White Blood Count 3.8 x10^3/uL (4.0-11.0) Red Blood Count 3.38 x10^6/uL (4.30-5.70) Hemoglobin 7.7 g/dL (13.0-17.5) Hematocrit 24.7 % (39.0-53.0) Mean Corpuscular Volume 73 fL (79-100) Mean Corpuscular Hemoglobin 23 pg (25-35) Mean Corpuscular Hemoglobin Concent 31 g/dL (31-37) Red Cell Distribution Width 31.6 % (11.5-14.5) Platelet Count 285 x10^3/uL (140-400) Neutrophils (%) (Auto) 88 % (31-73) Lymphocytes (%) (Auto) 7 % (24-48) Monocytes (%) (Auto) 5 % (0-9) Eosinophils (%) (Auto) 0 % (0-3) Basophils (%) (Auto) 0 % (0-3) Neutrophils # (Auto) 3.3 x10^3/uL (1.8-7.7) Lymphocytes # (Auto) 0.3 x10^3/uL (1.0-4.8) Monocytes # (Auto) 0.2 x10^3/uL (0.0-1.1) Eosinophils # (Auto) 0.0 x10^3/uL (0.0-0.7) Basophils # (Auto) 0.0 x10^3/uL (0.0-0.2) Segmented Neutrophils % 69 % (35-66) Band Neutrophils % 22 % (0-9) Lymphocytes % 4 % (24-48) Monocytes % 3 % (0-10) Metamyelocytes % 1 % (0-0) Myelocytes % 1 % (0-0) Toxic Granulation Slight Platelet Estimate Adequate (ADEQUATE) Polychromasia Slight Hypochromasia Mod Anisocytosis Marked Microcytosis Mod Ovalocytes Few Schistocytes Occ Test 03/05/20 16:55 03/06/20 05:00 O2 Saturation 99 % (92-99) Arterial Blood pH 7.40 (7.35-7.45) Arterial Blood pCO2 at Patient Temp 32 mmHg (35-46) Arterial Blood pO2 at Patient Temp 427 mmHg (65-108) Arterial Blood HCO3 20 mmol/L (21-28) Arterial Blood Base Excess -5 mmol/L (-3-3) Oxyhemoglobin 97.7 % Methemoglobin 0.3 % (0.0-1.9) Carbon Monoxide, Quantitative 0.8 % (0.0-1.9) FiO2 100 White Blood Count 19.6 x10^3/uL (4.0-11.0) Red Blood Count 4.07 x10^6/uL (4.30-5.70) Hemoglobin 9.4 g/dL (13.0-17.5) Hematocrit 29.9 % (39.0-53.0) Mean Corpuscular Volume 73 fL (79-100) Mean Corpuscular Hemoglobin 23 pg (25-35) Mean Corpuscular Hemoglobin Concent 32 g/dL (31-37) Red Cell Distribution Width 29.7 % (11.5-14.5) Platelet Count 301 x10^3/uL (140-400) Neutrophils (%) (Auto) 91 % (31-73) Lymphocytes (%) (Auto) 4 % (24-48) Monocytes (%) (Auto) 5 % (0-9) Eosinophils (%) (Auto) 0 % (0-3) Basophils (%) (Auto) 0 % (0-3) Neutrophils # (Auto) 17.9 x10^3/uL (1.8-7.7) Lymphocytes # (Auto) 0.7 x10^3/uL (1.0-4.8) Monocytes # (Auto) 1.0 x10^3/uL (0.0-1.1) Eosinophils # (Auto) 0.0 x10^3/uL (0.0-0.7) Basophils # (Auto) 0.0 x10^3/uL (0.0-0.2) Sodium Level 131 mmol/L (136-145) Potassium Level 4.2 mmol/L (3.5-5.1) Chloride Level 101 mmol/L (98-107) Carbon Dioxide Level 20 mmol/L (21-32) Anion Gap 10 (6-14) Blood Urea Nitrogen 40 mg/dL (8-26) Creatinine 1.1 mg/dL (0.7-1.3) Estimated GFR (Cockcroft-Gault) 66.0 BUN/Creatinine Ratio 36 (6-20) Glucose Level 167 mg/dL (70-99) Calcium Level 6.6 mg/dL (8.5-10.1) Total Bilirubin 0.9 mg/dL (0.2-1.0) Aspartate Amino Transf (AST/SGOT) 25 U/L (15-37) Alanine Aminotransferase (ALT/SGPT) 23 U/L (16-63) Alkaline Phosphatase 110 U/L (46-116) Total Protein 3.8 g/dL (6.4-8.2) Albumin 1.5 g/dL (3.4-5.0) Albumin/Globulin Ratio 0.7 (1.0-1.7) Results All relevant outside records, renal labs, imaging studies, telemetry/EKG's were reviewed. Justicifation of Admission Dx: Justifications for Admission: Justification of Admission Dx: Yes SUZANNE KATHLEEN MD Mar 06, 2020 09:09
--- NOTE | 2020-03-06 09:53 | PDOC ---
SURGICAL PROGRESS NOTE Subjective Pt intubated and sedated, extensive fluid given, remains on pressors Vital Signs Vital Signs Date Time Temp Pulse Resp B/P (MAP) Pulse Ox O2 Delivery O2 Flow Rate FiO2 03/06/20 09:00 120 16 128/77 (94) 100 Ventilator 03/06/20 08:00 98.4 98.4 I&O Intake and Output 03/06/20 07:00 Intake Total 08857 ml Output Total 4620 ml Balance 6952 ml Intake Oral 0 ml IV Total 92306 ml Blood Product 278 ml Blood Product IV Normal Saline Flush 400 ml Output Urine Total 600 ml Stool Total 400 ml Gastric Drainage Total 1850 ml Drainage Total 1520 ml Estimated Blood Loss 250 ml PATIENT HAS A DOZIER: Yes (need to maintain for accurate i and os) General: No acute distress Abdomen: Soft, No tenderness, Other (AVI drain serous, duodenostomy with bilious drainage) Labs Laboratory Tests Test 03/04/20 22:45 03/05/20 03:45 03/05/20 12:48 03/05/20 13:03 White Blood Count 11.4 x10^3/uL (4.0-11.0) 11.2 x10^3/uL (4.0-11.0) Red Blood Count 4.20 x10^6/uL (4.30-5.70) 4.12 x10^6/uL (4.30-5.70) Hemoglobin 9.3 g/dL (13.0-17.5) 9.2 g/dL (13.0-17.5) Hematocrit 29.9 % (39.0-53.0) 29.4 % (39.0-53.0) Mean Corpuscular Volume 71 fL (79-100) 71 fL (79-100) Mean Corpuscular Hemoglobin 22 pg (25-35) 22 pg (25-35) Mean Corpuscular Hemoglobin Concent 31 g/dL (31-37) 31 g/dL (31-37) Red Cell Distribution Width 31.9 % (11.5-14.5) 32.0 % (11.5-14.5) Platelet Count 347 x10^3/uL (140-400) 377 x10^3/uL (140-400) Neutrophils (%) (Auto) 85 % (31-73) 85 % (31-73) Lymphocytes (%) (Auto) 4 % (24-48) 5 % (24-48) Monocytes (%) (Auto) 11 % (0-9) 10 % (0-9) Eosinophils (%) (Auto) 0 % (0-3) 0 % (0-3) Basophils (%) (Auto) 0 % (0-3) 0 % (0-3) Neutrophils # (Auto) 9.6 x10^3/uL (1.8-7.7) 9.5 x10^3/uL (1.8-7.7) Lymphocytes # (Auto) 0.5 x10^3/uL (1.0-4.8) 0.6 x10^3/uL (1.0-4.8) Monocytes # (Auto) 1.3 x10^3/uL (0.0-1.1) 1.2 x10^3/uL (0.0-1.1) Eosinophils # (Auto) 0.0 x10^3/uL (0.0-0.7) 0.0 x10^3/uL (0.0-0.7) Basophils # (Auto) 0.0 x10^3/uL (0.0-0.2) 0.0 x10^3/uL (0.0-0.2) Sodium Level 132 mmol/L (136-145) Potassium Level 4.0 mmol/L (3.5-5.1) Chloride Level 100 mmol/L (98-107) Carbon Dioxide Level 23 mmol/L (21-32) Anion Gap 9 (6-14) Blood Urea Nitrogen 39 mg/dL (8-26) Creatinine 0.7 mg/dL (0.7-1.3) Estimated GFR (Cockcroft-Gault) 111.2 BUN/Creatinine Ratio 56 (6-20) Glucose Level 92 mg/dL (70-99) 87 mg/dL (70-99) Calcium Level 6.6 mg/dL (8.5-10.1) Total Bilirubin 0.5 mg/dL (0.2-1.0) Aspartate Amino Transf (AST/SGOT) 26 U/L (15-37) Alanine Aminotransferase (ALT/SGPT) 28 U/L (16-63) Alkaline Phosphatase 197 U/L (46-116) Total Protein 4.7 g/dL (6.4-8.2) Albumin 1.2 g/dL (3.4-5.0) Albumin/Globulin Ratio 0.3 (1.0-1.7) Glucose (Fingerstick) 86 mg/dL (70-99) Bedside Hematocrit 28 % (37-52) Arterial Blood pH (Temp corrected) 7.34 Arterial Blood pCO2 (Temp correct) 44 mmHg Arterial Blood pO2 (Temp corrected) 23 mmHg Bedside Venous pH 7.33 (7.32-7.42) Bedside Venous pCO2 46 mmHg (41-51) Bedside Venous pO2 24 mmHg (20-40) Bedside Venous HCO3 24 mmol/L (24-28) Bedside Venous Blood Total CO2 25 mmol/L (21-32) Bedside Venous Blood O2 Saturation 39 % Bedside Venous Blood Base Excess -2 mmol/L (0-3) POC Venous Hemoglobin (Calc) 9.5 g/dL (14-18) Bedside FiO2 50 Bedside Sodium 133 mmol/L (135-145) Bedside Potassium 4.6 mmol/L (3.5-5.0) Bedside Ionized Calcium (Pily) 1.03 mmol/L (1.13-1.32) Test 03/05/20 15:40 03/05/20 16:15 03/05/20 16:55 03/06/20 05:00 Sodium Level 133 mmol/L (136-145) 131 mmol/L (136-145) Potassium Level 4.2 mmol/L (3.5-5.1) 4.2 mmol/L (3.5-5.1) Chloride Level 102 mmol/L (98-107) 101 mmol/L (98-107) Carbon Dioxide Level 20 mmol/L (21-32) 20 mmol/L (21-32) Anion Gap 11 (6-14) 10 (6-14) Blood Urea Nitrogen 40 mg/dL (8-26) 40 mg/dL (8-26) Creatinine 1.0 mg/dL (0.7-1.3) 1.1 mg/dL (0.7-1.3) Estimated GFR (Cockcroft-Gault) 73.7 66.0 Glucose Level 95 mg/dL (70-99) 167 mg/dL (70-99) Calcium Level 6.8 mg/dL (8.5-10.1) 6.6 mg/dL (8.5-10.1) White Blood Count 3.8 x10^3/uL (4.0-11.0) 19.6 x10^3/uL (4.0-11.0) Red Blood Count 3.38 x10^6/uL (4.30-5.70) 4.07 x10^6/uL (4.30-5.70) Hemoglobin 7.7 g/dL (13.0-17.5) 9.4 g/dL (13.0-17.5) Hematocrit 24.7 % (39.0-53.0) 29.9 % (39.0-53.0) Mean Corpuscular Volume 73 fL (79-100) 73 fL (79-100) Mean Corpuscular Hemoglobin 23 pg (25-35) 23 pg (25-35) Mean Corpuscular Hemoglobin Concent 31 g/dL (31-37) 32 g/dL (31-37) Red Cell Distribution Width 31.6 % (11.5-14.5) 29.7 % (11.5-14.5) Platelet Count 285 x10^3/uL (140-400) 301 x10^3/uL (140-400) Neutrophils (%) (Auto) 88 % (31-73) 91 % (31-73) Lymphocytes (%) (Auto) 7 % (24-48) 4 % (24-48) Monocytes (%) (Auto) 5 % (0-9) 5 % (0-9) Eosinophils (%) (Auto) 0 % (0-3) 0 % (0-3) Basophils (%) (Auto) 0 % (0-3) 0 % (0-3) Neutrophils # (Auto) 3.3 x10^3/uL (1.8-7.7) 17.9 x10^3/uL (1.8-7.7) Lymphocytes # (Auto) 0.3 x10^3/uL (1.0-4.8) 0.7 x10^3/uL (1.0-4.8) Monocytes # (Auto) 0.2 x10^3/uL (0.0-1.1) 1.0 x10^3/uL (0.0-1.1) Eosinophils # (Auto) 0.0 x10^3/uL (0.0-0.7) 0.0 x10^3/uL (0.0-0.7) Basophils # (Auto) 0.0 x10^3/uL (0.0-0.2) 0.0 x10^3/uL (0.0-0.2) Segmented Neutrophils % 69 % (35-66) Band Neutrophils % 22 % (0-9) Lymphocytes % 4 % (24-48) Monocytes % 3 % (0-10) Metamyelocytes % 1 % (0-0) Myelocytes % 1 % (0-0) Toxic Granulation Slight Platelet Estimate Adequate (ADEQUATE) Polychromasia Slight Hypochromasia Mod Anisocytosis Marked Microcytosis Mod Ovalocytes Few Schistocytes Occ O2 Saturation 99 % (92-99) Arterial Blood pH 7.40 (7.35-7.45) Arterial Blood pCO2 at Patient Temp 32 mmHg (35-46) Arterial Blood pO2 at Patient Temp 427 mmHg (65-108) Arterial Blood HCO3 20 mmol/L (21-28) Arterial Blood Base Excess -5 mmol/L (-3-3) Oxyhemoglobin 97.7 % Methemoglobin 0.3 % (0.0-1.9) Carbon Monoxide, Quantitative 0.8 % (0.0-1.9) FiO2 100 BUN/Creatinine Ratio 36 (6-20) Total Bilirubin 0.9 mg/dL (0.2-1.0) Aspartate Amino Transf (AST/SGOT) 25 U/L (15-37) Alanine Aminotransferase (ALT/SGPT) 23 U/L (16-63) Alkaline Phosphatase 110 U/L (46-116) Total Protein 3.8 g/dL (6.4-8.2) Albumin 1.5 g/dL (3.4-5.0) Albumin/Globulin Ratio 0.7 (1.0-1.7) Laboratory Tests Test 03/05/20 12:48 03/05/20 13:03 03/05/20 15:40 03/05/20 16:15 Glucose (Fingerstick) 86 mg/dL (70-99) Bedside Hematocrit 28 % (37-52) Arterial Blood pH (Temp corrected) 7.34 Arterial Blood pCO2 (Temp correct) 44 mmHg Arterial Blood pO2 (Temp corrected) 23 mmHg Bedside Venous pH 7.33 (7.32-7.42) Bedside Venous pCO2 46 mmHg (41-51) Bedside Venous pO2 24 mmHg (20-40) Bedside Venous HCO3 24 mmol/L (24-28) Bedside Venous Blood Total CO2 25 mmol/L (21-32) Bedside Venous Blood O2 Saturation 39 % Bedside Venous Blood Base Excess -2 mmol/L (0-3) POC Venous Hemoglobin (Calc) 9.5 g/dL (14-18) Bedside FiO2 50 Bedside Sodium 133 mmol/L (135-145) Bedside Potassium 4.6 mmol/L (3.5-5.0) Glucose Level 87 mg/dL (70-99) 95 mg/dL (70-99) Bedside Ionized Calcium (Pily) 1.03 mmol/L (1.13-1.32) Sodium Level 133 mmol/L (136-145) Potassium Level 4.2 mmol/L (3.5-5.1) Chloride Level 102 mmol/L (98-107) Carbon Dioxide Level 20 mmol/L (21-32) Anion Gap 11 (6-14) Blood Urea Nitrogen 40 mg/dL (8-26) Creatinine 1.0 mg/dL (0.7-1.3) Estimated GFR (Cockcroft-Gault) 73.7 Calcium Level 6.8 mg/dL (8.5-10.1) White Blood Count 3.8 x10^3/uL (4.0-11.0) Red Blood Count 3.38 x10^6/uL (4.30-5.70) Hemoglobin 7.7 g/dL (13.0-17.5) Hematocrit 24.7 % (39.0-53.0) Mean Corpuscular Volume 73 fL (79-100) Mean Corpuscular Hemoglobin 23 pg (25-35) Mean Corpuscular Hemoglobin Concent 31 g/dL (31-37) Red Cell Distribution Width 31.6 % (11.5-14.5) Platelet Count 285 x10^3/uL (140-400) Neutrophils (%) (Auto) 88 % (31-73) Lymphocytes (%) (Auto) 7 % (24-48) Monocytes (%) (Auto) 5 % (0-9) Eosinophils (%) (Auto) 0 % (0-3) Basophils (%) (Auto) 0 % (0-3) Neutrophils # (Auto) 3.3 x10^3/uL (1.8-7.7) Lymphocytes # (Auto) 0.3 x10^3/uL (1.0-4.8) Monocytes # (Auto) 0.2 x10^3/uL (0.0-1.1) Eosinophils # (Auto) 0.0 x10^3/uL (0.0-0.7) Basophils # (Auto) 0.0 x10^3/uL (0.0-0.2) Segmented Neutrophils % 69 % (35-66) Band Neutrophils % 22 % (0-9) Lymphocytes % 4 % (24-48) Monocytes % 3 % (0-10) Metamyelocytes % 1 % (0-0) Myelocytes % 1 % (0-0) Toxic Granulation Slight Platelet Estimate Adequate (ADEQUATE) Polychromasia Slight Hypochromasia Mod Anisocytosis Marked Microcytosis Mod Ovalocytes Few Schistocytes Occ Test 03/05/20 16:55 03/06/20 05:00 O2 Saturation 99 % (92-99) Arterial Blood pH 7.40 (7.35-7.45) Arterial Blood pCO2 at Patient Temp 32 mmHg (35-46) Arterial Blood pO2 at Patient Temp 427 mmHg (65-108) Arterial Blood HCO3 20 mmol/L (21-28) Arterial Blood Base Excess -5 mmol/L (-3-3) Oxyhemoglobin 97.7 % Methemoglobin 0.3 % (0.0-1.9) Carbon Monoxide, Quantitative 0.8 % (0.0-1.9) FiO2 100 White Blood Count 19.6 x10^3/uL (4.0-11.0) Red Blood Count 4.07 x10^6/uL (4.30-5.70) Hemoglobin 9.4 g/dL (13.0-17.5) Hematocrit 29.9 % (39.0-53.0) Mean Corpuscular Volume 73 fL (79-100) Mean Corpuscular Hemoglobin 23 pg (25-35) Mean Corpuscular Hemoglobin Concent 32 g/dL (31-37) Red Cell Distribution Width 29.7 % (11.5-14.5) Platelet Count 301 x10^3/uL (140-400) Neutrophils (%) (Auto) 91 % (31-73) Lymphocytes (%) (Auto) 4 % (24-48) Monocytes (%) (Auto) 5 % (0-9) Eosinophils (%) (Auto) 0 % (0-3) Basophils (%) (Auto) 0 % (0-3) Neutrophils # (Auto) 17.9 x10^3/uL (1.8-7.7) Lymphocytes # (Auto) 0.7 x10^3/uL (1.0-4.8) Monocytes # (Auto) 1.0 x10^3/uL (0.0-1.1) Eosinophils # (Auto) 0.0 x10^3/uL (0.0-0.7) Basophils # (Auto) 0.0 x10^3/uL (0.0-0.2) Sodium Level 131 mmol/L (136-145) Potassium Level 4.2 mmol/L (3.5-5.1) Chloride Level 101 mmol/L (98-107) Carbon Dioxide Level 20 mmol/L (21-32) Anion Gap 10 (6-14) Blood Urea Nitrogen 40 mg/dL (8-26) Creatinine 1.1 mg/dL (0.7-1.3) Estimated GFR (Cockcroft-Gault) 66.0 BUN/Creatinine Ratio 36 (6-20) Glucose Level 167 mg/dL (70-99) Calcium Level 6.6 mg/dL (8.5-10.1) Total Bilirubin 0.9 mg/dL (0.2-1.0) Aspartate Amino Transf (AST/SGOT) 25 U/L (15-37) Alanine Aminotransferase (ALT/SGPT) 23 U/L (16-63) Alkaline Phosphatase 110 U/L (46-116) Total Protein 3.8 g/dL (6.4-8.2) Albumin 1.5 g/dL (3.4-5.0) Albumin/Globulin Ratio 0.7 (1.0-1.7) Problem List Problems Medical Problems: (1) Anemia Status: Acute (2) Colonic mass Status: Acute (3) Fatigue Status: Acute (4) Hypocalcemia Status: Acute (5) Nausea & vomiting Status: Acute (6) SBO (small bowel obstruction) Status: Acute Assessment/Plan s/p open right colon remains critically ill appreciate consultants. Justicifation of Admission Dx: Justifications for Admission: Justification of Admission Dx: Yes MEGAN WILLIAMSON MD Mar 06, 2020 09:53
[2020-03-06] MEDS: ENOXAPARIN 40 MG/0.4 ML SYRINGE. SQ SCH (09:54)
--- NOTE | 2020-03-06 10:04 | NUR ---
SS following up with discharge planning. SS reviewed pt chart and discussed with pt RN. Pt is currently on the vent. Pt had surgery on 03/05/2020 and per RN, they were not able to remove all of the mass. Pt on IV Zosyn and PPN. SS and pt's RN discussed with pt's brother Markos, , via phone. SS discussed discharge planning options to include Hospice and LTACH pending on whether family wants full aggressive care vs comfort care. Pt is currently Full Code. Pt's brother reported that he has a family meeting at 1330 tomorrow at [facility] to discuss hospice for his mother. Pt's brother reported that he will come and see pt at that time. SS will continue to follow for discharge planning.
--- NOTE | 2020-03-06 10:28 | PDOC ---
Objective: Objective: D/w nurse - remains on levo. Significant output from rectal tube and NG f ollowing surgery - less now. S/p 1 unit pRBCs. Vital Signs: Vital Signs Date Time Temp Pulse Resp B/P (MAP) Pulse Ox O2 Delivery O2 Flow Rate FiO2 03/06/20 10:00 112 16 120/70 (87) 100 Ventilator 03/06/20 08:00 98.4 98.4 Labs: Laboratory Tests Test 03/05/20 12:48 03/05/20 13:03 03/05/20 15:40 03/05/20 16:15 Glucose (Fingerstick) 86 mg/dL Bedside Hematocrit 28 % Arterial Blood pH (Temp corrected) 7.34 Arterial Blood pCO2 (Temp correct) 44 mmHg Arterial Blood pO2 (Temp corrected) 23 mmHg Bedside Venous pH 7.33 Bedside Venous pCO2 46 mmHg Bedside Venous pO2 24 mmHg Bedside Venous HCO3 24 mmol/L Bedside Venous Blood Total CO2 25 mmol/L Bedside Venous Blood O2 Saturation 39 % Bedside Venous Blood Base Excess -2 mmol/L POC Venous Hemoglobin (Calc) 9.5 g/dL Bedside FiO2 50 Bedside Sodium 133 mmol/L Bedside Potassium 4.6 mmol/L Glucose Level 87 mg/dL 95 mg/dL Bedside Ionized Calcium (Pily) 1.03 mmol/L Sodium Level 133 mmol/L Potassium Level 4.2 mmol/L Chloride Level 102 mmol/L Carbon Dioxide Level 20 mmol/L Anion Gap 11 Blood Urea Nitrogen 40 mg/dL Creatinine 1.0 mg/dL Estimated GFR (Cockcroft-Gault) 73.7 Calcium Level 6.8 mg/dL White Blood Count 3.8 x10^3/uL Red Blood Count 3.38 x10^6/uL Hemoglobin 7.7 g/dL Hematocrit 24.7 % Mean Corpuscular Volume 73 fL Mean Corpuscular Hemoglobin 23 pg Mean Corpuscular Hemoglobin Concent 31 g/dL Red Cell Distribution Width 31.6 % Platelet Count 285 x10^3/uL Neutrophils (%) (Auto) 88 % Lymphocytes (%) (Auto) 7 % Monocytes (%) (Auto) 5 % Eosinophils (%) (Auto) 0 % Basophils (%) (Auto) 0 % Neutrophils # (Auto) 3.3 x10^3/uL Lymphocytes # (Auto) 0.3 x10^3/uL Monocytes # (Auto) 0.2 x10^3/uL Eosinophils # (Auto) 0.0 x10^3/uL Basophils # (Auto) 0.0 x10^3/uL Segmented Neutrophils % 69 % Band Neutrophils % 22 % Lymphocytes % 4 % Monocytes % 3 % Metamyelocytes % 1 % Myelocytes % 1 % Toxic Granulation Slight Platelet Estimate Adequate Polychromasia Slight Hypochromasia Mod Anisocytosis Marked Microcytosis Mod Ovalocytes Few Schistocytes Occ Test 03/05/20 16:55 03/06/20 05:00 O2 Saturation 99 % Arterial Blood pH 7.40 Arterial Blood pCO2 at Patient Temp 32 mmHg Arterial Blood pO2 at Patient Temp 427 mmHg Arterial Blood HCO3 20 mmol/L Arterial Blood Base Excess -5 mmol/L Oxyhemoglobin 97.7 % Methemoglobin 0.3 % Carbon Monoxide, Quantitative 0.8 % FiO2 100 White Blood Count 19.6 x10^3/uL Red Blood Count 4.07 x10^6/uL Hemoglobin 9.4 g/dL Hematocrit 29.9 % Mean Corpuscular Volume 73 fL Mean Corpuscular Hemoglobin 23 pg Mean Corpuscular Hemoglobin Concent 32 g/dL Red Cell Distribution Width 29.7 % Platelet Count 301 x10^3/uL Neutrophils (%) (Auto) 91 % Lymphocytes (%) (Auto) 4 % Monocytes (%) (Auto) 5 % Eosinophils (%) (Auto) 0 % Basophils (%) (Auto) 0 % Neutrophils # (Auto) 17.9 x10^3/uL Lymphocytes # (Auto) 0.7 x10^3/uL Monocytes # (Auto) 1.0 x10^3/uL Eosinophils # (Auto) 0.0 x10^3/uL Basophils # (Auto) 0.0 x10^3/uL Sodium Level 131 mmol/L Potassium Level 4.2 mmol/L Chloride Level 101 mmol/L Carbon Dioxide Level 20 mmol/L Anion Gap 10 Blood Urea Nitrogen 40 mg/dL Creatinine 1.1 mg/dL Estimated GFR (Cockcroft-Gault) 66.0 BUN/Creatinine Ratio 36 Glucose Level 167 mg/dL Calcium Level 6.6 mg/dL Total Bilirubin 0.9 mg/dL Aspartate Amino Transf (AST/SGOT) 25 U/L Alanine Aminotransferase (ALT/SGPT) 23 U/L Alkaline Phosphatase 110 U/L Total Protein 3.8 g/dL Albumin 1.5 g/dL Albumin/Globulin Ratio 0.7 Imaging: IOC 03/05 IMPRESSION: 1. No evidence of retained stones. CXR 03/05 IMPRESSION: No acute cardiopulmonary process. KUB 03/05 1. Drainage catheter projects over the right lateral abdomen. Gastrostomy tube is suspected. Mild to moderate gastric distention noted. 2. Nasogastric tube is identified with the distal tip projecting over the gastric cardia. 3. Dilated small bowel loops in the left lower quadrant measuring up to 3.3 cm. Findings could represent ileus versus resolving small bowel obstruction 4. Laparoscopy pad appears to project over the midline pelvis. 5. Bowel anastomosis noted in the right midabdomen. PE: GEN: intubated LUNGS: vent/clear HEART: tachycardic ABD: dressing intact, soft, AVI serous, rectal tube w/ dark liquid stool, duodenostomy bilious NEURO/PSYCH: sedated A/P: S/p open right colon resection, partial resection of duodenum, placement of duodenostomy tube, cholecystectomy, ghost ileostomy ACD -- Continue support, await path, will need heme/onc opinion eventually. Justicifation of Admission Dx: Justifications for Admission: Justification of Admission Dx: Yes LONG RIOS Mar 06, 2020 10:28
[2020-03-06 12:14] LABS: FIO2 ABG 50%+5
[2020-03-06] MEDS: TAMSULOSIN 0.4 MG CAP.ER.24H. PO SCH (21:00)
[2020-03-06] MEDS: VASOPRESSIN 20 UNIT in IV DEXTROSE 5% 100ML 100 ML IV PRN (21:01)
[2020-03-07] VITALS (34 sets, daily range): BP systolic 94–154; BP diastolic 50–82
[2020-03-07] MEDS: PIPERACILLIN/TAZOBACTAM 3.375 GM in IV NORMAL SALINE 50ML 50 ML IV SCH ×5 (01:12→23:25)
[2020-03-07 02:08] LABS: SODIUM, URINE <20 mmol/L (Not Estab.); UR POTASSIUM 72.2 mmol/L (Not Estab.)
[2020-03-07] MEDS: AMINO AC 3%/ELECTROLYTE/GLYCER 1,000 ML IV SCH (02:41)
[2020-03-07] MEDS: VASOPRESSIN 20 UNIT in IV DEXTROSE 5% 100ML 100 ML IV PRN ×3 (03:10→21:58)
[2020-03-07] MEDS: NORMAL SALINE IV PRN ×2 (03:12→21:33)
[2020-03-07] MEDS: MIDAZOLAM HCL IV PRN ×2 (03:12→21:33)
[2020-03-07] MEDS: NOREPINEPHRINE VIAL 8 MG in IV DEXTROSE 5% 250 ML IV PRN ×3 (03:17→21:33)
[2020-03-07 06:32] LABS: ALBUMIN 0.9 g/dL (3.4-5.0); ALBUMIN/GLOBULIN RATIO 0.4 (1.0-1.7); CALCIUM 6.2 mg/dL (8.5-10.1); CREATININE 0.8 mg/dL (0.7-1.3); GFR 95.3; POTASSIUM 3.7 mmol/L (3.5-5.1); TOTAL BILIRUBIN 0.3 mg/dL (0.2-1.0); TOTAL PROTEIN 3.3 g/dL (6.4-8.2)
[2020-03-07 08:04] LABS: BASE EXCESS ABG -3 mmol/L (-3-3); HCO3 ABG 20 mmol/L (21-28); PCO2 ABG 28 mmHg (35-46); PO2 ABG 140 mmHg (65-108); SAT O2 ABG 98 % (92-99)
[2020-03-07 08:08] LABS: FIO2 ABG 40
--- NOTE | 2020-03-07 08:33 | PDOC ---
PULMONARY PROGRESS NOTES Subjective Patient sedated, on norepinephrine, vasopressin assist control ventilation Vitals Vital Signs Date Time Temp Pulse Resp B/P (MAP) Pulse Ox O2 Delivery O2 Flow Rate FiO2 03/07/20 07:46 100 Ventilator 03/07/20 07:00 86 16 130/72 (91) 03/07/20 04:00 98.7 98.7 Lungs: Clear Cardiovascular: S1, S2 Abdomen: Other (Dressing in place) Extremities: No Edema Skin: Warm Labs Laboratory Tests Test 03/05/20 12:48 03/05/20 13:03 03/05/20 15:40 03/05/20 16:15 Glucose (Fingerstick) 86 mg/dL (70-99) Bedside Hematocrit 28 % (37-52) Arterial Blood pH (Temp corrected) 7.34 Arterial Blood pCO2 (Temp correct) 44 mmHg Arterial Blood pO2 (Temp corrected) 23 mmHg Bedside Venous pH 7.33 (7.32-7.42) Bedside Venous pCO2 46 mmHg (41-51) Bedside Venous pO2 24 mmHg (20-40) Bedside Venous HCO3 24 mmol/L (24-28) Bedside Venous Blood Total CO2 25 mmol/L (21-32) Bedside Venous Blood O2 Saturation 39 % Bedside Venous Blood Base Excess -2 mmol/L (0-3) POC Venous Hemoglobin (Calc) 9.5 g/dL (14-18) Bedside FiO2 50 Bedside Sodium 133 mmol/L (135-145) Bedside Potassium 4.6 mmol/L (3.5-5.0) Glucose Level 87 mg/dL (70-99) 95 mg/dL (70-99) Bedside Ionized Calcium (Pily) 1.03 mmol/L (1.13-1.32) Sodium Level 133 mmol/L (136-145) Potassium Level 4.2 mmol/L (3.5-5.1) Chloride Level 102 mmol/L (98-107) Carbon Dioxide Level 20 mmol/L (21-32) Anion Gap 11 (6-14) Blood Urea Nitrogen 40 mg/dL (8-26) Creatinine 1.0 mg/dL (0.7-1.3) Estimated GFR (Cockcroft-Gault) 73.7 Calcium Level 6.8 mg/dL (8.5-10.1) White Blood Count 3.8 x10^3/uL (4.0-11.0) Red Blood Count 3.38 x10^6/uL (4.30-5.70) Hemoglobin 7.7 g/dL (13.0-17.5) Hematocrit 24.7 % (39.0-53.0) Mean Corpuscular Volume 73 fL (79-100) Mean Corpuscular Hemoglobin 23 pg (25-35) Mean Corpuscular Hemoglobin Concent 31 g/dL (31-37) Red Cell Distribution Width 31.6 % (11.5-14.5) Platelet Count 285 x10^3/uL (140-400) Neutrophils (%) (Auto) 88 % (31-73) Lymphocytes (%) (Auto) 7 % (24-48) Monocytes (%) (Auto) 5 % (0-9) Eosinophils (%) (Auto) 0 % (0-3) Basophils (%) (Auto) 0 % (0-3) Neutrophils # (Auto) 3.3 x10^3/uL (1.8-7.7) Lymphocytes # (Auto) 0.3 x10^3/uL (1.0-4.8) Monocytes # (Auto) 0.2 x10^3/uL (0.0-1.1) Eosinophils # (Auto) 0.0 x10^3/uL (0.0-0.7) Basophils # (Auto) 0.0 x10^3/uL (0.0-0.2) Segmented Neutrophils % 69 % (35-66) Band Neutrophils % 22 % (0-9) Lymphocytes % 4 % (24-48) Monocytes % 3 % (0-10) Metamyelocytes % 1 % (0-0) Myelocytes % 1 % (0-0) Toxic Granulation Slight Platelet Estimate Adequate (ADEQUATE) Polychromasia Slight Hypochromasia Mod Anisocytosis Marked Microcytosis Mod Ovalocytes Few Schistocytes Occ Test 03/05/20 16:55 03/06/20 05:00 03/06/20 08:00 03/06/20 11:50 O2 Saturation 99 % (92-99) 98 % (92-99) Arterial Blood pH 7.40 (7.35-7.45) 7.40 (7.35-7.45) Arterial Blood pCO2 at Patient Temp 32 mmHg (35-46) 29 mmHg (35-46) Arterial Blood pO2 at Patient Temp 427 mmHg (65-108) 180 mmHg (65-108) Arterial Blood HCO3 20 mmol/L (21-28) 18 mmol/L (21-28) Arterial Blood Base Excess -5 mmol/L (-3-3) -6 mmol/L (-3-3) Oxyhemoglobin 97.7 % Methemoglobin 0.3 % (0.0-1.9) Carbon Monoxide, Quantitative 0.8 % (0.0-1.9) FiO2 100 50%+5 White Blood Count 19.6 x10^3/uL (4.0-11.0) Red Blood Count 4.07 x10^6/uL (4.30-5.70) Hemoglobin 9.4 g/dL (13.0-17.5) Hematocrit 29.9 % (39.0-53.0) Mean Corpuscular Volume 73 fL (79-100) Mean Corpuscular Hemoglobin 23 pg (25-35) Mean Corpuscular Hemoglobin Concent 32 g/dL (31-37) Red Cell Distribution Width 29.7 % (11.5-14.5) Platelet Count 301 x10^3/uL (140-400) Neutrophils (%) (Auto) 91 % (31-73) Lymphocytes (%) (Auto) 4 % (24-48) Monocytes (%) (Auto) 5 % (0-9) Eosinophils (%) (Auto) 0 % (0-3) Basophils (%) (Auto) 0 % (0-3) Neutrophils # (Auto) 17.9 x10^3/uL (1.8-7.7) Lymphocytes # (Auto) 0.7 x10^3/uL (1.0-4.8) Monocytes # (Auto) 1.0 x10^3/uL (0.0-1.1) Eosinophils # (Auto) 0.0 x10^3/uL (0.0-0.7) Basophils # (Auto) 0.0 x10^3/uL (0.0-0.2) Sodium Level 131 mmol/L (136-145) Potassium Level 4.2 mmol/L (3.5-5.1) Chloride Level 101 mmol/L (98-107) Carbon Dioxide Level 20 mmol/L (21-32) Anion Gap 10 (6-14) Blood Urea Nitrogen 40 mg/dL (8-26) Creatinine 1.1 mg/dL (0.7-1.3) Estimated GFR (Cockcroft-Gault) 66.0 BUN/Creatinine Ratio 36 (6-20) Glucose Level 167 mg/dL (70-99) Calcium Level 6.6 mg/dL (8.5-10.1) Total Bilirubin 0.9 mg/dL (0.2-1.0) Aspartate Amino Transf (AST/SGOT) 25 U/L (15-37) Alanine Aminotransferase (ALT/SGPT) 23 U/L (16-63) Alkaline Phosphatase 110 U/L (46-116) Total Protein 3.8 g/dL (6.4-8.2) Albumin 1.5 g/dL (3.4-5.0) Albumin/Globulin Ratio 0.7 (1.0-1.7) Urine Sodium <20 mmol/L (Not Estab.) Urine Potassium 72.2 mmol/L (Not Estab.) Urine Chloride <20 mmol/L (Not Estab.) Test 03/07/20 05:50 03/07/20 08:00 Sodium Level 128 mmol/L (136-145) Potassium Level 3.7 mmol/L (3.5-5.1) Chloride Level 98 mmol/L (98-107) Carbon Dioxide Level 22 mmol/L (21-32) Anion Gap 8 (6-14) Blood Urea Nitrogen 29 mg/dL (8-26) Creatinine 0.8 mg/dL (0.7-1.3) Estimated GFR (Cockcroft-Gault) 95.3 BUN/Creatinine Ratio 36 (6-20) Glucose Level 131 mg/dL (70-99) Calcium Level 6.2 mg/dL (8.5-10.1) Total Bilirubin 0.3 mg/dL (0.2-1.0) Aspartate Amino Transf (AST/SGOT) 19 U/L (15-37) Alanine Aminotransferase (ALT/SGPT) 17 U/L (16-63) Alkaline Phosphatase 97 U/L (46-116) Total Protein 3.3 g/dL (6.4-8.2) Albumin 0.9 g/dL (3.4-5.0) Albumin/Globulin Ratio 0.4 (1.0-1.7) O2 Saturation 98 % (92-99) Arterial Blood pH 7.47 (7.35-7.45) Arterial Blood pCO2 at Patient Temp 28 mmHg (35-46) Arterial Blood pO2 at Patient Temp 140 mmHg (65-108) Arterial Blood HCO3 20 mmol/L (21-28) Arterial Blood Base Excess -3 mmol/L (-3-3) FiO2 40 Laboratory Tests Test 03/06/20 11:50 03/07/20 05:50 03/07/20 08:00 Urine Sodium <20 mmol/L (Not Estab.) Urine Potassium 72.2 mmol/L (Not Estab.) Urine Chloride <20 mmol/L (Not Estab.) Sodium Level 128 mmol/L (136-145) Potassium Level 3.7 mmol/L (3.5-5.1) Chloride Level 98 mmol/L (98-107) Carbon Dioxide Level 22 mmol/L (21-32) Anion Gap 8 (6-14) Blood Urea Nitrogen 29 mg/dL (8-26) Creatinine 0.8 mg/dL (0.7-1.3) Estimated GFR (Cockcroft-Gault) 95.3 BUN/Creatinine Ratio 36 (6-20) Glucose Level 131 mg/dL (70-99) Calcium Level 6.2 mg/dL (8.5-10.1) Total Bilirubin 0.3 mg/dL (0.2-1.0) Aspartate Amino Transf (AST/SGOT) 19 U/L (15-37) Alanine Aminotransferase (ALT/SGPT) 17 U/L (16-63) Alkaline Phosphatase 97 U/L (46-116) Total Protein 3.3 g/dL (6.4-8.2) Albumin 0.9 g/dL (3.4-5.0) Albumin/Globulin Ratio 0.4 (1.0-1.7) O2 Saturation 98 % (92-99) Arterial Blood pH 7.47 (7.35-7.45) Arterial Blood pCO2 at Patient Temp 28 mmHg (35-46) Arterial Blood pO2 at Patient Temp 140 mmHg (65-108) Arterial Blood HCO3 20 mmol/L (21-28) Arterial Blood Base Excess -3 mmol/L (-3-3) FiO2 40 Medications Active Scripts Medications Dose Route/Sig Max Daily Dose Days Date Category Flomax (Tamsulosin Hcl) 0.4 Mg Cap.er.24h 1 Cap PO QHS 03/02/20 Reported Impression . IMPRESSION: 1. Acute hypoxemic respiratory failure, expected status post surgical intervention for colonic mass. 2. Obstructing colonic cancer. 3. History of prostate cancer. 4. Severe protein malnutrition present upon admission. 5. Tobacco dependent. 6. Chronic obstructive pulmonary disease. 7. SARS-CoV-2 negative. 8. Cholelithiasis. 9. Hyponatremia. 10. Protein malnutrition, present upon admission. 11. Benign prostatic hypertrophy. 12. S/p open right colon resection, partial resection of duodenum, placement of duodenostomy tube, cholecystectomy, ghost ileostomy 13. Acute blood loss anemia 14. Respiratory alkalosis Plan . Minute ventilation adjusted Continue assist control ventilation IV fluids IV pressors Empiric antibiotics DVT GI prophylaxis Transfuse Total cumulative critical care time of 30 minutes reviewing data, labs, chest x-ray and formulating a plan. DOTTIE WILBURN MD Mar 07, 2020 08:33
[2020-03-07] MEDS: PANTOPRAZOLE IV PUSH 40 MG VIAL. IVP SCH (08:55)
[2020-03-07] MEDS: IV RINGERS,LACTATED 1000ML 1,000 ML IV SCH ×2 (08:55→23:16)
[2020-03-07] MEDS: ENOXAPARIN 40 MG/0.4 ML SYRINGE. SQ SCH (08:55)
--- NOTE | 2020-03-07 09:44 | PDOC ---
Objective: Objective: D/w nurse - remains on pressors. Vital Signs: Vital Signs Date Time Temp Pulse Resp B/P (MAP) Pulse Ox O2 Delivery O2 Flow Rate FiO2 03/07/20 07:46 100 Ventilator 03/07/20 07:00 86 16 130/72 (91) 03/07/20 04:00 98.7 98.7 Labs: Laboratory Tests Test 03/06/20 11:50 03/07/20 05:50 03/07/20 08:00 Urine Sodium <20 mmol/L Urine Potassium 72.2 mmol/L Urine Chloride <20 mmol/L Sodium Level 128 mmol/L Potassium Level 3.7 mmol/L Chloride Level 98 mmol/L Carbon Dioxide Level 22 mmol/L Anion Gap 8 Blood Urea Nitrogen 29 mg/dL Creatinine 0.8 mg/dL Estimated GFR (Cockcroft-Gault) 95.3 BUN/Creatinine Ratio 36 Glucose Level 131 mg/dL Calcium Level 6.2 mg/dL Total Bilirubin 0.3 mg/dL Aspartate Amino Transf (AST/SGOT) 19 U/L Alanine Aminotransferase (ALT/SGPT) 17 U/L Alkaline Phosphatase 97 U/L Total Protein 3.3 g/dL Albumin 0.9 g/dL Albumin/Globulin Ratio 0.4 O2 Saturation 98 % Arterial Blood pH 7.47 Arterial Blood pCO2 at Patient Temp 28 mmHg Arterial Blood pO2 at Patient Temp 140 mmHg Arterial Blood HCO3 20 mmol/L Arterial Blood Base Excess -3 mmol/L FiO2 40 PE: GEN: intubated LUNGS: vent, clear HEART: RRR ABD: soft - flinches when palpated, rectal tube w/ dark brown stool, NG dark bilious NEURO/PSYCH: sedated A/P: Colon cancer S/p open right colon resection, partial resection of duodenum, placement of duodenostomy tube, cholecystectomy, ghost ileostomy - path pending ACD -- Continue support. Justicifation of Admission Dx: Justifications for Admission: Justification of Admission Dx: Yes LONG RIOS Mar 07, 2020 09:44
[2020-03-07 09:49] LABS: BASO % 0 % (0-3); EOS % 0 % (0-3); HEMATOCRIT 21.7 % (39.0-53.0); LYMPH # 0.6 x10^3/uL (1.0-4.8); LYMPH % 4 % (24-48); MEAN CORPUSCULAR HEMOGLOBIN 23 pg (25-35); MEAN CORPUSCULAR HGB CONC 31 g/dL (31-37); MEAN CORPUSCULAR VOLUME 73 fL (79-100); MONO % 7 % (0-9); NEUT # 12.7 x10^3/uL (1.8-7.7); NEUT % 89 % (31-73); PLATELET COUNT 207 x10^3/uL (140-400); RED BLOOD COUNT 2.99 x10^6/uL (4.30-5.70); RED CELL DISTRIBUTION WIDTH 30.6 % (11.5-14.5); WHITE BLOOD COUNT 14.3 x10^3/uL (4.0-11.0)
[2020-03-07 09:56] LABS: HEMOGLOBIN 6.8 g/dL (13.0-17.5)
--- NOTE | 2020-03-07 10:05 | PDOC ---
SUBJECTIVE ROS S/P right colon resection, partial resection of duodenum ON 03/05 Intubated ,On MV , Hypotensive, remains on pressors OBJECTIVE Vital Signs Vital Signs Date Time Temp Pulse Resp B/P (MAP) Pulse Ox O2 Delivery O2 Flow Rate FiO2 03/07/20 09:46 16 03/07/20 07:46 100 Ventilator 03/07/20 07:00 86 130/72 (91) 03/07/20 04:00 98.7 98.7 I & 0 Intake and Output 03/07/20 07:00 Intake Total 6134.7 ml Output Total 2895 ml Balance 3239.7 ml IV Total 6134.7 ml Output Urine Total 645 ml Gastric Drainage Total 750 ml Drainage Total 1500 ml PHYSICAL EXAM Physical Exam General Appearance: no apparent distress HEEN Intubated Skin: warm Respiratory: decreased at bases Heart: S1S2 Abdomen: s/p Surgery Genitourinary: Booth + Neurology: Intubated DIAGNOSIS/ASSESSMENT Assessment & Plan Hyponatremia - Na decreased 3% Saline -200 ml , Hold PPN , Mauri RN GEORGES- Resolved Increased gastric secretions LR per GS , pressors, supportive care , avoid nephrotoxins 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 S/P Open right colon resection, partial resection of duodenum, placement of duodenostomy tube, cholecystectomy with cholangiogram, ghost ileostomy Anemia- drop in Hgb , management per GS HX of prostate cancer BPH Critically ill COMMENT/RELEVANT DATA Meds Current Medications Medications (Trade) Dose Ordered Sig/Faisal Start Time Stop Time Status Last Admin Dose Admin Acetaminophen (Tylenol Supp) 650 mg PRN Q4HRS PRN 03/03/20 09:45 Albumin Human 500 ml @ As Directed STK-MED ONCE 03/05/20 13:13 03/05/20 13:14 DC Amino Acids/ Glycerin/ Electrolytes 1,000 ml @ 80 mls/hr [id number] 03/03/20 15:00 03/07/20 02:41 80 MLS/HR Bisacodyl (Dulcolax Supp) 10 mg 1X ONCE 03/04/20 10:00 03/04/20 10:05 DC 03/04/20 12:18 10 MG Bisacodyl (Dulcolax Tab) 10 mg PRN DAILY PRN 03/03/20 09:45 03/06/20 10:25 DC 03/03/20 13:47 10 MG Bupivacaine HCl/ Epinephrine Bitart (Sensorcain-Epi 0.5%-1:[id number] Mpf) 30 ml STK-MED ONCE 03/05/20 10:42 03/05/20 10:42 DC Calcium Gluconate (Calcium Gluconate) 1,000 mg 1X ONCE 03/02/20 18:15 03/02/20 18:18 DC 03/02/20 18:21 1,000 MG Cefoxitin Sodium (Mefoxin) 1 gm STK-MED ONCE 03/05/20 12:57 03/05/20 12:57 DC Dexamethasone Sodium Phosphate (Decadron) 4 mg STK-MED ONCE 03/05/20 10:23 03/05/20 10:23 DC Docusate Sodium (Colace) 100 mg DAILY 03/03/20 12:00 03/06/20 10:25 DC 03/04/20 09:21 100 MG Enoxaparin Sodium (Lovenox 40mg Syringe) 40 mg Q24H 03/06/20 08:00 03/07/20 08:55 40 MG Enoxaparin Sodium (Lovenox Per Pharmacy Prophylaxis Dosing) 1 each PRN DAILY PRN 03/02/20 20:30 Cancel Ephedrine Sulfate (ePHEDrine PF IN SALINE SYRINGE) 50 mg STK-MED ONCE 03/05/20 12:13 03/05/20 12:14 DC Fentanyl Citrate 30 ml @ 2.5 mls/hr CONT PRN PRN 03/05/20 15:15 03/07/20 09:46 2.5 MLS/HR Fentanyl Citrate (Fentanyl 2ml Vial) 100 mcg STK-MED ONCE 03/05/20 10:24 03/05/20 10:24 DC Furosemide (Lasix) 40 mg 1X ONCE 03/03/20 15:00 03/03/20 15:01 DC 03/03/20 16:48 40 MG Hydromorphone HCl (Dilaudid) 0.5 mg PRN Q10MIN PRN 03/05/20 07:15 03/05/20 20:00 DC Info (CONTRAST GIVEN -- Rx MONITORING) 1 each PRN DAILY PRN 03/03/20 16:15 03/05/20 16:15 DC Iohexol (Omnipaque 300 Mg/ml) 50 ml STK-MED ONCE 03/05/20 10:41 03/05/20 10:41 DC 03/05/20 11:43 27 ML Lidocaine (Lidoderm) 1 patch DAILY 03/04/20 16:30 Cancel Lidocaine HCl (Lidocaine Pf 2% Vial) 5 ml STK-MED ONCE 03/05/20 10:23 03/05/20 10:23 DC Lidocaine HCl (Xylocaine-Mpf 1% 2ml Vial) 2 ml 1X PRN PRN 03/05/20 07:15 03/05/20 20:00 DC Midazolam HCl 100 mg/Sodium Chloride 100 ml @ 1 mls/hr CONT PRN 03/05/20 15:15 03/07/20 03:12 5 MLS/HR Miscellaneous (Lidoderm Patch Removal) 1 ea QHS 03/04/20 21:00 Cancel Morphine Sulfate 30 ml @ 0 mls/hr CONT PRN PRN 03/05/20 16:15 03/06/20 09:48 DC Morphine Sulfate (Morphine Sulfate) 1 mg PRN Q10MIN PRN 03/05/20 07:15 03/05/20 20:00 DC Naloxone HCl (Narcan) 0.4 mg PRN Q2MIN PRN 03/05/20 16:15 Norepinephrine Bitartrate 8 mg/ Dextrose 258 ml @ 15.287 mls/ hr CONT PRN 03/05/20 15:30 03/07/20 03:17 39.745 MLS/HR Ondansetron HCl (Zofran) 4 mg PRN Q6HRS PRN 03/05/20 16:15 Pantoprazole Sodium (PROTONIX VIAL for IV PUSH) 40 mg DAILYAC 03/05/20 10:30 03/07/20 08:55 40 MG Phenylephrine HCl (Devin-Synephrine Inj) 10 mg STK-MED ONCE 03/05/20 14:35 03/05/20 14:36 DC Phenylephrine HCl (PHENYLEPHRINE in 0.9% NACL PF) 1 mg STK-MED ONCE 03/05/20 12:13 03/05/20 12:14 DC Piperacillin Sod/ Tazobactam Sod 3.375 gm/Sodium Chloride 50 ml @ 100 mls/hr Q6HRS 03/05/20 17:00 03/07/20 05:43 100 MLS/HR Polyethylene Glycol (miraLAX PACKET) 17 gm QHS 03/03/20 21:00 03/06/20 10:25 DC 03/04/20 21:03 17 GM Prochlorperazine Edisylate (Compazine) 5 mg PACU PRN PRN 03/05/20 07:15 03/06/20 07:14 DC Propofol (Diprivan) 200 mg STK-MED ONCE 03/05/20 10:23 03/05/20 10:23 DC Psyllium Hydrophilic Mucilloid (Metamucil Fiber Packet) 1 pkt QHS 03/03/20 21:00 03/06/20 10:25 DC 03/04/20 21:03 1 PKT Ringer's Solution 1,000 ml @ 999 mls/hr 1X ONCE 03/06/20 18:15 03/06/20 19:15 DC 03/06/20 18:43 999 MLS/HR Rocuronium Beatty (Zemuron) 50 mg STK-MED ONCE 03/05/20 12:27 03/05/20 12:27 DC Sevoflurane (Ultane) 90 ml STK-MED ONCE 03/05/20 14:30 03/05/20 14:30 DC Sodium Chloride 1,000 ml @ 25 mls/hr Q24H 03/05/20 16:09 03/06/20 14:24 DC Sodium Chloride (Normal Saline Flush) 3 ml QSHIFT PRN 03/05/20 16:15 Succinylcholine Chloride (Anectine) 200 mg STK-MED ONCE 03/05/20 10:23 03/05/20 10:23 DC Tamsulosin HCl (Flomax) 0.4 mg HS 03/02/20 23:45 03/04/20 21:03 0.4 MG Vasopressin 20 unit/Dextrose 101 ml @ 12 mls/hr CONT PRN 03/05/20 20:00 03/07/20 03:10 12 MLS/HR Lab Laboratory Tests Test 03/06/20 11:50 03/07/20 05:50 03/07/20 08:00 03/07/20 09:00 Urine Sodium <20 mmol/L (Not Estab.) Urine Potassium 72.2 mmol/L (Not Estab.) Urine Chloride <20 mmol/L (Not Estab.) Sodium Level 128 mmol/L (136-145) Potassium Level 3.7 mmol/L (3.5-5.1) Chloride Level 98 mmol/L (98-107) Carbon Dioxide Level 22 mmol/L (21-32) Anion Gap 8 (6-14) Blood Urea Nitrogen 29 mg/dL (8-26) Creatinine 0.8 mg/dL (0.7-1.3) Estimated GFR (Cockcroft-Gault) 95.3 BUN/Creatinine Ratio 36 (6-20) Glucose Level 131 mg/dL (70-99) Calcium Level 6.2 mg/dL (8.5-10.1) Total Bilirubin 0.3 mg/dL (0.2-1.0) Aspartate Amino Transf (AST/SGOT) 19 U/L (15-37) Alanine Aminotransferase (ALT/SGPT) 17 U/L (16-63) Alkaline Phosphatase 97 U/L (46-116) Total Protein 3.3 g/dL (6.4-8.2) Albumin 0.9 g/dL (3.4-5.0) Albumin/Globulin Ratio 0.4 (1.0-1.7) O2 Saturation 98 % (92-99) Arterial Blood pH 7.47 (7.35-7.45) Arterial Blood pCO2 at Patient Temp 28 mmHg (35-46) Arterial Blood pO2 at Patient Temp 140 mmHg (65-108) Arterial Blood HCO3 20 mmol/L (21-28) Arterial Blood Base Excess -3 mmol/L (-3-3) FiO2 40 White Blood Count 14.3 x10^3/uL (4.0-11.0) Red Blood Count 2.99 x10^6/uL (4.30-5.70) Hemoglobin 6.8 g/dL (13.0-17.5) Hematocrit 21.7 % (39.0-53.0) Mean Corpuscular Volume 73 fL (79-100) Mean Corpuscular Hemoglobin 23 pg (25-35) Mean Corpuscular Hemoglobin Concent 31 g/dL (31-37) Red Cell Distribution Width 30.6 % (11.5-14.5) Platelet Count 207 x10^3/uL (140-400) Neutrophils (%) (Auto) 89 % (31-73) Lymphocytes (%) (Auto) 4 % (24-48) Monocytes (%) (Auto) 7 % (0-9) Eosinophils (%) (Auto) 0 % (0-3) Basophils (%) (Auto) 0 % (0-3) Neutrophils # (Auto) 12.7 x10^3/uL (1.8-7.7) Lymphocytes # (Auto) 0.6 x10^3/uL (1.0-4.8) Monocytes # (Auto) 1.0 x10^3/uL (0.0-1.1) Eosinophils # (Auto) 0.0 x10^3/uL (0.0-0.7) Basophils # (Auto) 0.0 x10^3/uL (0.0-0.2) Results All relevant outside records, renal labs, imaging studies, telemetry/EKG's were reviewed. Justicifation of Admission Dx: Justifications for Admission: Justification of Admission Dx: Yes SUZANNE KATHLEEN MD Mar 07, 2020 10:04
--- NOTE | 2020-03-07 13:02 | NUR ---
SS following up with discharge planning. SS reviewed pt chart and discussed with pt RN. Pt remains on the vent at this time. Pt on IV Zosyn, PPN, and Levophed. Pt had one unit of blood. Sodium low today. SS left voicemail for pt's brother, Markos. SS awaiting return call at this time. SS will continue to follow for discharge planning.
[2020-03-07] MEDS ORDERED: SODIUM CHLORIDE 3 % 200 ML IV ONE (13:30)
--- NOTE | 2020-03-07 13:32 | PDOC ---
PROGRESS NOTES Chief Complaint Chief Complaint nause and vomiting with abd pain Fatigue Weight Loss Small bowel dilatation/obstruction suspicious for primary colon cancer 10.5cm mass with surrounding lymph nodes concerning for metastatic disease 10.5 cm colonic mass. Colonic mass abuts the right hepatic lobe inferior margin as well as the duodenum and anterior right kidney (extending through or deforming Gerota's fascia), suspicious for primary colon cancer. Prominent associated lymph nodes are seen, possibly metastatic Obstructing right colon cancer Dialated Appendix fatty liver dz Gallstones Microcytic Anemia Alkaline Phosphatemia Hyponatremia Mild Leukocytosis Tachycardia H/o prostate cancer in remission Severe protein calorie malnutrition LE edema - BNP of 350, no cardiac history and no symptoms of CHF. This is unlikely to be cardiac related at all. Likely likely lymphatic obstruction due to abdominal mass. Hyponatremia - likely due to poor PO intake, SERUM OSMOLALITY PENDING HYPOTENSION, POSSIBLE SEPSIS NPO vent support post=op s/p open right colon POD # 1 remains critically ill 38 min cc time History of Present Illness History of Present Illness Mr Claudio is a 69 yo CM hx of prostate cancer s/p radiation, HTN, prediabetes now off meds who presents with vomiting fatigue diarrhea weight loss and decreased appetite for 1 month. He went to see his PCP because over the past week he had sudden onset lower extremity edema, patient had labs drawn as outpatient and called by PCP to go to the hospital for a blood transfusion and treatment for CHF. No history of CHF. On ROS he just notes his bones feel heavy. He also notes over the past 2 months sometimes he will choke on food and vomited up. His last bowel movement was 2 days ago and it was diarrhea. He has not been able to eat very well. He just feels tired. He stopped smoking over 25 years ago and he only did smoke cigars at that time. With regard to his prostate cancer he states that he had 43 radiation treatments and had a PET scan at the end of 2019 and was told he is in remission. He has never had a colonoscopy. in ED patient found to have hb of 9.8. na 130. noted to be tachy with HR 110. Patient lives with 101 year old mom. His mother has history of stage III colon cancer diagnosed at age 76. His brother has history of prostate cancer, father of lung cancer. Ct abdomen in ED revealed: 1. Small bowel dilatation/obstruction to the level of a 10.5 cm colonic mass. Colonic mass abuts the right hepatic lobe inferior margin as well as the d uodenum and anterior right kidney (extending through or deforming Gerota's fascia), suspicious for primary colon cancer. Prominent associated lymph nodes are seen, possibly metastatic. Otherwise no abdominal or pelvic lymphadenopathy. 2. The appendix is dilated with infiltration mostly at the base. Although this may secondary dilation from obstruction from the colonic mass, acute appendicitis cannot be excluded but is felt to be less likely. 3. Hepatic hypoattenuation likely fatty liver. 4. Small gallstone is seen within the gallbladder 03/05: He has some nausea, he is worried about his mother going into hospice. Afebrile. NA 132. Started on PPN. Given Lasix with improvement in his edema. No chest pain or shortness of breath, a lot of weakness and says he feels weak in his bones. 2x BM overnight OPERATIVE NOTE Date: Date: Mar 05, 2020 Pre-Op Diagnosis: Obstructing right colon cancer Post-Op Diagnosis: same, perforated and invading duodenum Procedure Performed: Open right colon resection, partial resection of duodenum, placement of duodenostomy tube, cholecystectomy with cholangiogram, ghost ileostomy Surgeon: Juve Goss Anesthesia Type: GETA plus local Blood Loss: 250 Specimans Obtained: right colon, gallbladder Findings: Large, obstructing mass at hepatic flexure with perforation into retroperitoneum and duodenum, gallstone, normal cholangiogram Complications: Vitals Vitals Vital Signs Date Time Temp Pulse Resp B/P (MAP) Pulse Ox O2 Delivery O2 Flow Rate FiO2 03/07/20 13:00 80 16 154/82 (106) 100 Ventilator 03/07/20 12:33 97.9 97.9 Physical Exam Physical Exam SEDATED ON VENT Heart: Regular rate, Normal S2 Lungs: Clear Abdomen: Other (DRESSINGS DRY) Extremities: No clubbing, No cyanosis Skin: No breakdown, No significant lesion Labs LABS Laboratory Tests Test 03/07/20 05:50 03/07/20 08:00 03/07/20 09:00 Sodium Level 128 mmol/L (136-145) Potassium Level 3.7 mmol/L (3.5-5.1) Chloride Level 98 mmol/L (98-107) Carbon Dioxide Level 22 mmol/L (21-32) Anion Gap 8 (6-14) Blood Urea Nitrogen 29 mg/dL (8-26) Creatinine 0.8 mg/dL (0.7-1.3) Estimated GFR (Cockcroft-Gault) 95.3 BUN/Creatinine Ratio 36 (6-20) Glucose Level 131 mg/dL (70-99) Calcium Level 6.2 mg/dL (8.5-10.1) Total Bilirubin 0.3 mg/dL (0.2-1.0) Aspartate Amino Transf (AST/SGOT) 19 U/L (15-37) Alanine Aminotransferase (ALT/SGPT) 17 U/L (16-63) Alkaline Phosphatase 97 U/L (46-116) Total Protein 3.3 g/dL (6.4-8.2) Albumin 0.9 g/dL (3.4-5.0) Albumin/Globulin Ratio 0.4 (1.0-1.7) O2 Saturation 98 % (92-99) Arterial Blood pH 7.47 (7.35-7.45) Arterial Blood pCO2 at Patient Temp 28 mmHg (35-46) Arterial Blood pO2 at Patient Temp 140 mmHg (65-108) Arterial Blood HCO3 20 mmol/L (21-28) Arterial Blood Base Excess -3 mmol/L (-3-3) FiO2 40 White Blood Count 14.3 x10^3/uL (4.0-11.0) Red Blood Count 2.99 x10^6/uL (4.30-5.70) Hemoglobin 6.8 g/dL (13.0-17.5) Hematocrit 21.7 % (39.0-53.0) Mean Corpuscular Volume 73 fL (79-100) Mean Corpuscular Hemoglobin 23 pg (25-35) Mean Corpuscular Hemoglobin Concent 31 g/dL (31-37) Red Cell Distribution Width 30.6 % (11.5-14.5) Platelet Count 207 x10^3/uL (140-400) Neutrophils (%) (Auto) 89 % (31-73) Lymphocytes (%) (Auto) 4 % (24-48) Monocytes (%) (Auto) 7 % (0-9) Eosinophils (%) (Auto) 0 % (0-3) Basophils (%) (Auto) 0 % (0-3) Neutrophils # (Auto) 12.7 x10^3/uL (1.8-7.7) Lymphocytes # (Auto) 0.6 x10^3/uL (1.0-4.8) Monocytes # (Auto) 1.0 x10^3/uL (0.0-1.1) Eosinophils # (Auto) 0.0 x10^3/uL (0.0-0.7) Basophils # (Auto) 0.0 x10^3/uL (0.0-0.2) Assessment and Plan Assessmemt and Plan Problems Medical Problems: (1) Anemia Status: Acute (2) Colonic mass Status: Acute (3) Fatigue Status: Acute (4) Hypocalcemia Status: Acute (5) Nausea & vomiting Status: Acute (6) SBO (small bowel obstruction) Status: Acute Comment Review of Relevant I have reviewed the following items radhames (where applicable) has been applied. Labs Laboratory Tests Test 03/05/20 15:40 03/05/20 16:15 03/05/20 16:55 03/06/20 05:00 Sodium Level 133 mmol/L (136-145) 131 mmol/L (136-145) Potassium Level 4.2 mmol/L (3.5-5.1) 4.2 mmol/L (3.5-5.1) Chloride Level 102 mmol/L (98-107) 101 mmol/L (98-107) Carbon Dioxide Level 20 mmol/L (21-32) 20 mmol/L (21-32) Anion Gap 11 (6-14) 10 (6-14) Blood Urea Nitrogen 40 mg/dL (8-26) 40 mg/dL (8-26) Creatinine 1.0 mg/dL (0.7-1.3) 1.1 mg/dL (0.7-1.3) Estimated GFR (Cockcroft-Gault) 73.7 66.0 Glucose Level 95 mg/dL (70-99) 167 mg/dL (70-99) Calcium Level 6.8 mg/dL (8.5-10.1) 6.6 mg/dL (8.5-10.1) White Blood Count 3.8 x10^3/uL (4.0-11.0) 19.6 x10^3/uL (4.0-11.0) Red Blood Count 3.38 x10^6/uL (4.30-5.70) 4.07 x10^6/uL (4.30-5.70) Hemoglobin 7.7 g/dL (13.0-17.5) 9.4 g/dL (13.0-17.5) Hematocrit 24.7 % (39.0-53.0) 29.9 % (39.0-53.0) Mean Corpuscular Volume 73 fL (79-100) 73 fL (79-100) Mean Corpuscular Hemoglobin 23 pg (25-35) 23 pg (25-35) Mean Corpuscular Hemoglobin Concent 31 g/dL (31-37) 32 g/dL (31-37) Red Cell Distribution Width 31.6 % (11.5-14.5) 29.7 % (11.5-14.5) Platelet Count 285 x10^3/uL (140-400) 301 x10^3/uL (140-400) Neutrophils (%) (Auto) 88 % (31-73) 91 % (31-73) Lymphocytes (%) (Auto) 7 % (24-48) 4 % (24-48) Monocytes (%) (Auto) 5 % (0-9) 5 % (0-9) Eosinophils (%) (Auto) 0 % (0-3) 0 % (0-3) Basophils (%) (Auto) 0 % (0-3) 0 % (0-3) Neutrophils # (Auto) 3.3 x10^3/uL (1.8-7.7) 17.9 x10^3/uL (1.8-7.7) Lymphocytes # (Auto) 0.3 x10^3/uL (1.0-4.8) 0.7 x10^3/uL (1.0-4.8) Monocytes # (Auto) 0.2 x10^3/uL (0.0-1.1) 1.0 x10^3/uL (0.0-1.1) Eosinophils # (Auto) 0.0 x10^3/uL (0.0-0.7) 0.0 x10^3/uL (0.0-0.7) Basophils # (Auto) 0.0 x10^3/uL (0.0-0.2) 0.0 x10^3/uL (0.0-0.2) Segmented Neutrophils % 69 % (35-66) Band Neutrophils % 22 % (0-9) Lymphocytes % 4 % (24-48) Monocytes % 3 % (0-10) Metamyelocytes % 1 % (0-0) Myelocytes % 1 % (0-0) Toxic Granulation Slight Platelet Estimate Adequate (ADEQUATE) Polychromasia Slight Hypochromasia Mod Anisocytosis Marked Microcytosis Mod Ovalocytes Few Schistocytes Occ O2 Saturation 99 % (92-99) Arterial Blood pH 7.40 (7.35-7.45) Arterial Blood pCO2 at Patient Temp 32 mmHg (35-46) Arterial Blood pO2 at Patient Temp 427 mmHg (65-108) Arterial Blood HCO3 20 mmol/L (21-28) Arterial Blood Base Excess -5 mmol/L (-3-3) Oxyhemoglobin 97.7 % Methemoglobin 0.3 % (0.0-1.9) Carbon Monoxide, Quantitative 0.8 % (0.0-1.9) FiO2 100 BUN/Creatinine Ratio 36 (6-20) Total Bilirubin 0.9 mg/dL (0.2-1.0) Aspartate Amino Transf (AST/SGOT) 25 U/L (15-37) Alanine Aminotransferase (ALT/SGPT) 23 U/L (16-63) Alkaline Phosphatase 110 U/L (46-116) Total Protein 3.8 g/dL (6.4-8.2) Albumin 1.5 g/dL (3.4-5.0) Albumin/Globulin Ratio 0.7 (1.0-1.7) Test 03/06/20 08:00 03/06/20 11:50 03/07/20 05:50 03/07/20 08:00 O2 Saturation 98 % (92-99) 98 % (92-99) Arterial Blood pH 7.40 (7.35-7.45) 7.47 (7.35-7.45) Arterial Blood pCO2 at Patient Temp 29 mmHg (35-46) 28 mmHg (35-46) Arterial Blood pO2 at Patient Temp 180 mmHg (65-108) 140 mmHg (65-108) Arterial Blood HCO3 18 mmol/L (21-28) 20 mmol/L (21-28) Arterial Blood Base Excess -6 mmol/L (-3-3) -3 mmol/L (-3-3) FiO2 50%+5 40 Urine Sodium <20 mmol/L (Not Estab.) Urine Potassium 72.2 mmol/L (Not Estab.) Urine Chloride <20 mmol/L (Not Estab.) Sodium Level 128 mmol/L (136-145) Potassium Level 3.7 mmol/L (3.5-5.1) Chloride Level 98 mmol/L (98-107) Carbon Dioxide Level 22 mmol/L (21-32) Anion Gap 8 (6-14) Blood Urea Nitrogen 29 mg/dL (8-26) Creatinine 0.8 mg/dL (0.7-1.3) Estimated GFR (Cockcroft-Gault) 95.3 BUN/Creatinine Ratio 36 (6-20) Glucose Level 131 mg/dL (70-99) Calcium Level 6.2 mg/dL (8.5-10.1) Total Bilirubin 0.3 mg/dL (0.2-1.0) Aspartate Amino Transf (AST/SGOT) 19 U/L (15-37) Alanine Aminotransferase (ALT/SGPT) 17 U/L (16-63) Alkaline Phosphatase 97 U/L (46-116) Total Protein 3.3 g/dL (6.4-8.2) Albumin 0.9 g/dL (3.4-5.0) Albumin/Globulin Ratio 0.4 (1.0-1.7) Test 03/07/20 09:00 White Blood Count 14.3 x10^3/uL (4.0-11.0) Red Blood Count 2.99 x10^6/uL (4.30-5.70) Hemoglobin 6.8 g/dL (13.0-17.5) Hematocrit 21.7 % (39.0-53.0) Mean Corpuscular Volume 73 fL (79-100) Mean Corpuscular Hemoglobin 23 pg (25-35) Mean Corpuscular Hemoglobin Concent 31 g/dL (31-37) Red Cell Distribution Width 30.6 % (11.5-14.5) Platelet Count 207 x10^3/uL (140-400) Neutrophils (%) (Auto) 89 % (31-73) Lymphocytes (%) (Auto) 4 % (24-48) Monocytes (%) (Auto) 7 % (0-9) Eosinophils (%) (Auto) 0 % (0-3) Basophils (%) (Auto) 0 % (0-3) Neutrophils # (Auto) 12.7 x10^3/uL (1.8-7.7) Lymphocytes # (Auto) 0.6 x10^3/uL (1.0-4.8) Monocytes # (Auto) 1.0 x10^3/uL (0.0-1.1) Eosinophils # (Auto) 0.0 x10^3/uL (0.0-0.7) Basophils # (Auto) 0.0 x10^3/uL (0.0-0.2) Laboratory Tests Test 03/07/20 05:50 03/07/20 08:00 03/07/20 09:00 Sodium Level 128 mmol/L (136-145) Potassium Level 3.7 mmol/L (3.5-5.1) Chloride Level 98 mmol/L (98-107) Carbon Dioxide Level 22 mmol/L (21-32) Anion Gap 8 (6-14) Blood Urea Nitrogen 29 mg/dL (8-26) Creatinine 0.8 mg/dL (0.7-1.3) Estimated GFR (Cockcroft-Gault) 95.3 BUN/Creatinine Ratio 36 (6-20) Glucose Level 131 mg/dL (70-99) Calcium Level 6.2 mg/dL (8.5-10.1) Total Bilirubin 0.3 mg/dL (0.2-1.0) Aspartate Amino Transf (AST/SGOT) 19 U/L (15-37) Alanine Aminotransferase (ALT/SGPT) 17 U/L (16-63) Alkaline Phosphatase 97 U/L (46-116) Total Protein 3.3 g/dL (6.4-8.2) Albumin 0.9 g/dL (3.4-5.0) Albumin/Globulin Ratio 0.4 (1.0-1.7) O2 Saturation 98 % (92-99) Arterial Blood pH 7.47 (7.35-7.45) Arterial Blood pCO2 at Patient Temp 28 mmHg (35-46) Arterial Blood pO2 at Patient Temp 140 mmHg (65-108) Arterial Blood HCO3 20 mmol/L (21-28) Arterial Blood Base Excess -3 mmol/L (-3-3) FiO2 40 White Blood Count 14.3 x10^3/uL (4.0-11.0) Red Blood Count 2.99 x10^6/uL (4.30-5.70) Hemoglobin 6.8 g/dL (13.0-17.5) Hematocrit 21.7 % (39.0-53.0) Mean Corpuscular Volume 73 fL (79-100) Mean Corpuscular Hemoglobin 23 pg (25-35) Mean Corpuscular Hemoglobin Concent 31 g/dL (31-37) Red Cell Distribution Width 30.6 % (11.5-14.5) Platelet Count 207 x10^3/uL (140-400) Neutrophils (%) (Auto) 89 % (31-73) Lymphocytes (%) (Auto) 4 % (24-48) Monocytes (%) (Auto) 7 % (0-9) Eosinophils (%) (Auto) 0 % (0-3) Basophils (%) (Auto) 0 % (0-3) Neutrophils # (Auto) 12.7 x10^3/uL (1.8-7.7) Lymphocytes # (Auto) 0.6 x10^3/uL (1.0-4.8) Monocytes # (Auto) 1.0 x10^3/uL (0.0-1.1) Eosinophils # (Auto) 0.0 x10^3/uL (0.0-0.7) Basophils # (Auto) 0.0 x10^3/uL (0.0-0.2) Microbiology 03/02/20 Urine Culture - Final, Complete Medications Current Medications Sodium Chloride 1,000 ml @ 1,000 mls/hr 1X ONCE IV Last administered on 03/02/20at 17:05; Start 03/02/20 at 16:45; Stop 03/02/20 at 17:44; Status DC Calcium Gluconate (Calcium Gluconate) 1,000 mg 1X ONCE IVP Last administered on 03/02/20at 18:21; Start 03/02/20 at 18:15; Stop 03/02/20 at 18:18; Status DC Iohexol (Omnipaque 300 Mg/ml) 75 ml 1X ONCE IV Last administered on 03/02/20at 18:34; Start 03/02/20 at 18:30; Stop 03/02/20 at 18:31; Status DC Pantoprazole Sodium (PROTONIX VIAL for IV PUSH) 40 mg 1X ONCE IVP Last administered on 03/02/20at 18:41; Start 03/02/20 at 18:45; Stop 03/02/20 at 18:46; Status DC Sodium Chloride 1,000 ml @ 100 mls/hr 1X ONCE IV Last administered on 03/02/20at 19:04; Start 03/02/20 at 18:45; Stop 03/03/20 at 04:44; Status DC Enoxaparin Sodium (Lovenox Per Pharmacy Prophylaxis Dosing) 1 each PRN DAILY PRN MC SEE COMMENTS; Start 03/02/20 at 20:30; Status Cancel Enoxaparin Sodium (Lovenox 40mg Syringe) 40 mg Q24H SQ Last administered on 03/02/20at 23:48; Start 03/02/20 at 21:00; Stop 03/03/20 at 08:48; Status DC Tamsulosin HCl (Flomax) 0.4 mg HS PO Last administered on 03/04/20at 21:03; Start 03/02/20 at 23:45 Sodium Chloride 1,000 ml @ 100 mls/hr Q10H IV Last administered on 03/03/20at 11:07; Start 03/03/20 at 10:00; Stop 03/03/20 at 14:58; Status DC Ondansetron HCl (Zofran) 4 mg PRN Q4HRS PRN IV NAUSEA/VOMITING Last administered on 03/04/20at 22:31; Start 03/03/20 at 09:45; Stop 03/05/20 at 16:15; Status DC Acetaminophen (Tylenol Supp) 650 mg PRN Q4HRS PRN [place] TEMP OVER 100.4F OR MILD PAIN; Start 03/03/20 at 09:45 Polyethylene Glycol (miraLAX PACKET) 17 gm DAILY PO Last administered on 03/04/20at 09:21; Start 03/03/20 at 10:00; Stop 03/06/20 at 10:25; Status DC Bisacodyl (Dulcolax Supp) 10 mg PRN DAILY PRN [place] CONSTIPATION; Start 03/03/20 at 09:45; Stop 03/06/20 at 10:25; Status DC Bisacodyl (Dulcolax Tab) 10 mg PRN DAILY PRN PO CONSTIPATION Last administered on 03/03/20at 13:47; Start 03/03/20 at 09:45; Stop 03/06/20 at 10:25; Status DC Psyllium Hydrophilic Mucilloid (Metamucil Fiber Packet) 1 pkt QHS PO Last administered on 03/04/20at 21:03; Start 03/03/20 at 21:00; Stop 03/06/20 at 10:25; Status DC Polyethylene Glycol (miraLAX PACKET) 17 gm QHS PO Last administered on 03/04/20at 21:03; Start 03/03/20 at 21:00; Stop 03/06/20 at 10:25; Status DC Docusate Sodium (Colace) 100 mg DAILY PO Last administered on 03/04/20at 09:21; Start 03/03/20 at 12:00; Stop 03/06/20 at 10:25; Status DC Amino Acids/ Glycerin/ Electrolytes 1,000 ml @ 80 mls/hr [id number] IV Last administered on 03/07/20at 02:41; Start 03/03/20 at 15:00; Stop 03/07/20 at 13:22; Status DC Furosemide (Lasix) 40 mg 1X ONCE IVP Last administered on 03/03/20at 16:48; Start 03/03/20 at 15:00; Stop 03/03/20 at 15:01; Status DC Iohexol (Omnipaque 300 Mg/ml) 75 ml 1X ONCE IV Last administered on 03/03/20at 16:33; Start 03/03/20 at 16:15; Stop 03/03/20 at 16:16; Status DC Info (CONTRAST GIVEN -- Rx MONITORING) 1 each PRN DAILY PRN MC SEE COMMENTS; Start 03/03/20 at 16:15; Stop 03/05/20 at 16:15; Status DC Bisacodyl (Dulcolax Supp) 10 mg 1X ONCE [place] Last administered on 03/04/20at 12:18; Start 03/04/20 at 10:00; Stop 03/04/20 at 10:05; Status DC Cefoxitin Sodium (Mefoxin) 2 gm 1X PREOP IVP Last administered on 03/05/20at 13:09; Start 03/05/20 at 10:00 Lidocaine (Lidoderm) 1 patch DAILY TD ; Start 03/04/20 at 16:30; Status Cancel Miscellaneous (Lidoderm Patch Removal) 1 ea QHS MC ; Start 03/04/20 at 21:00; Status Cancel Ondansetron HCl (Zofran) 4 mg PRN Q6HRS PRN IVP NAUSEA/VOMITING; Start 03/05/20 at 07:15; Stop 03/05/20 at 20:00; Status DC Fentanyl Citrate (Fentanyl 2ml Vial) 25 mcg PRN Q5MIN PRN IVP MILD PAIN 1-3; Start 03/05/20 at 07:15; Stop 03/05/20 at 20:00; Status DC Fentanyl Citrate (Fentanyl 2ml Vial) 50 mcg PRN Q5MIN PRN IVP MODERATE TO SEVERE PAIN; Start 03/05/20 at 07:15; Stop 03/05/20 at 20:00; Status DC Morphine Sulfate (Morphine Sulfate) 1 mg PRN Q10MIN PRN IVP SEVERE PAIN 7-10; Start 03/05/20 at 07:15; Stop 03/05/20 at 20:00; Status DC Ringer's Solution 1,000 ml @ 30 mls/hr Q24H IV Last administered on 03/05/20at 09:59; Start 03/05/20 at 07:05; Stop 03/05/20 at 19:04; Status DC Lidocaine HCl (Xylocaine-Mpf 1% 2ml Vial) 2 ml 1X PRN PRN ID IV START; Start 03/05/20 at 07:15; Stop 03/05/20 at 20:00; Status DC Hydromorphone HCl (Dilaudid) 0.5 mg PRN Q10MIN PRN IVP SEV PAIN, Second choice; Start 03/05/20 at 07:15; Stop 03/05/20 at 20:00; Status DC Prochlorperazine Edisylate (Compazine) 5 mg PACU PRN PRN IVP NAUSEA, MRX1; Start 03/05/20 at 07:15; Stop 03/06/20 at 07:14; Status DC Pantoprazole Sodium (PROTONIX VIAL for IV PUSH) 40 mg DAILYAC IVP Last administered on 03/07/20at 08:55; Start 03/05/20 at 10:30 Propofol (Diprivan) 200 mg STK-MED ONCE IV ; Start 03/05/20 at 10:23; Stop 03/05/20 at 10:23; Status DC Lidocaine HCl (Lidocaine Pf 2% Vial) 5 ml STK-MED ONCE .ROUTE ; Start 03/05/20 at 10:23; Stop 03/05/20 at 10:23; Status DC Ondansetron HCl (Zofran) 4 mg STK-MED ONCE .ROUTE ; Start 03/05/20 at 10:23; Stop 03/05/20 at 10:23; Status DC Dexamethasone Sodium Phosphate (Decadron) 4 mg STK-MED ONCE .ROUTE ; Start 03/05/20 at 10:23; Stop 03/05/20 at 10:23; Status DC Succinylcholine Chloride (Anectine) 200 mg STK-MED ONCE .ROUTE ; Start 03/05/20 at 10:23; Stop 03/05/20 at 10:23; Status DC Rocuronium [place] (Zemuron) 50 mg STK-MED ONCE .ROUTE ; Start 03/05/20 at 10:24; Stop 03/05/20 at 10:24; Status DC Fentanyl Citrate (Fentanyl 2ml Vial) 100 mcg STK-MED ONCE .ROUTE ; Start 03/05/20 at 10:24; Stop 03/05/20 at 10:24; Status DC Iohexol (Omnipaque 300 Mg/ml) 50 ml STK-MED ONCE .ROUTE Last administered on 03/05/20at 11:43; Start 03/05/20 at 10:41; Stop 03/05/20 at 10:41; Status DC Bupivacaine HCl/ Epinephrine Bitart (Sensorcain-Epi 0.5%-1:[id number] Mpf) 30 ml STK-MED ONCE .ROUTE ; Start 03/05/20 at 10:42; Stop 03/05/20 at 10:42; Status DC Phenylephrine HCl (PHENYLEPHRINE in 0.9% NACL PF) 1 mg STK-MED ONCE IV ; Start 03/05/20 at 12:13; Stop 03/05/20 at 12:14; Status DC Ephedrine Sulfate (ePHEDrine PF IN SALINE SYRINGE) 50 mg STK-MED ONCE IV ; Start 03/05/20 at 12:13; Stop 03/05/20 at 12:14; Status DC Phenylephrine HCl (Devin-Synephrine Inj) 10 mg STK-MED ONCE .ROUTE ; Start 03/05/20 at 12:15; Stop 03/05/20 at 12:15; Status DC Rocuronium [place] (Zemuron) 50 mg STK-MED ONCE .ROUTE ; Start 03/05/20 at 12:27; Stop 03/05/20 at 12:27; Status DC Cefoxitin Sodium (Mefoxin) 1 gm STK-MED ONCE IVP ; Start 03/05/20 at 12:57; Stop 03/05/20 at 12:57; Status DC Albumin Human 500 ml @ As Directed STK-MED ONCE IV ; Start 03/05/20 at 13:08; Stop 03/05/20 at 13:08; Status DC Albumin Human 500 ml @ As Directed STK-MED ONCE IV ; Start 03/05/20 at 13:13; Stop 03/05/20 at 13:14; Status DC Phenylephrine HCl (Devin-Synephrine Inj) 10 mg STK-MED ONCE .ROUTE ; Start 03/05/20 at 13:35; Stop 03/05/20 at 13:35; Status DC Phenylephrine HCl (Devin-Synephrine Inj) 10 mg STK-MED ONCE .ROUTE ; Start 03/05/20 at 13:48; Stop 03/05/20 at 13:49; Status DC Sevoflurane (Ultane) 90 ml STK-MED ONCE IH ; Start 03/05/20 at 14:30; Stop 03/05/20 at 14:30; Status DC Phenylephrine HCl (Devin-Synephrine Inj) 10 mg STK-MED ONCE .ROUTE ; Start 03/05/20 at 14:35; Stop 03/05/20 at 14:36; Status DC Midazolam HCl 100 mg/Sodium Chloride 100 ml @ 1 mls/hr CONT PRN IV SEE I/O RECORD Last administered on 03/07/20at 03:12; Start 03/05/20 at 15:15 Fentanyl Citrate 30 ml @ 2.5 mls/hr CONT PRN PRN IV PER PROTOCOL Last administered on 03/07/20at 09:46; Start 03/05/20 at 15:15 Naloxone HCl (Narcan) 0.4 mg PRN Q2MIN PRN IV SEE INSTRUCTIONS; Start 03/05/20 at 15:15; Stop 03/06/20 at 09:45; Status DC Sodium Chloride 1,000 ml @ 25 mls/hr Q24H IV ; Start 03/05/20 at 15:13; Stop 03/06/20 at 14:24; Status DC Norepinephrine Bitartrate 8 mg/ Dextrose 258 ml @ 15.287 mls/ hr CONT PRN IV PER PROTOCOL Last administered on 03/07/20at 11:35; Start 03/05/20 at 15:30 Enoxaparin Sodium (Lovenox 40mg Syringe) 40 mg Q24H SQ Last administered on 03/07/20at 08:55; Start 03/06/20 at 08:00 Sodium Chloride (Normal Saline Flush) 3 ml QSHIFT PRN IV AFTER MEDS AND BLOOD DRAWS; Start 03/05/20 at 16:15 Ringer's Solution 1,000 ml @ 100 mls/hr Q10H IV Last administered on 03/07/20at 08:55; Start 03/05/20 at 16:09 Naloxone HCl (Narcan) 0.4 mg PRN Q2MIN PRN IV SEE INSTRUCTIONS; Start 03/05/20 at 16:15 Sodium Chloride 1,000 ml @ 25 mls/hr Q24H IV ; Start 03/05/20 at 16:09; Stop 03/06/20 at 14:24; Status DC Morphine Sulfate 30 ml @ 0 mls/hr CONT PRN PRN IV PER PROTOCOL; Start 03/05/20 at 16:15; Stop 03/06/20 at 09:48; Status DC Ondansetron HCl (Zofran) 4 mg PRN Q6HRS PRN IVP NAUESA, 1ST CHOICE; Start 03/05/20 at 16:15 Piperacillin Sod/ Tazobactam Sod 3.375 gm/Sodium Chloride 50 ml @ 100 mls/hr Q6HRS IV Last administered on 03/07/20at 11:34; Start 03/05/20 at 17:00 Ringer's Solution 1,000 ml @ 999 mls/hr 1X ONCE IV Last administered on 03/05/20at 20:59; Start 03/05/20 at 20:00; Stop 03/05/20 at 21:00; Status DC Vasopressin 20 unit/Dextrose 101 ml @ 12 mls/hr CONT PRN IV SEE I/O RECORD Last administered on 03/07/20at 11:33; Start 03/05/20 at 20:00 Ringer's Solution 1,000 ml @ 999 mls/hr 1X ONCE IV Last administered on 03/06/20at 01:07; Start 03/06/20 at 01:00; Stop 03/06/20 at 02:00; Status DC Ringer's Solution 1,000 ml @ 999 mls/hr 1X ONCE IV Last administered on 03/06/20at 05:18; Start 03/06/20 at 05:00; Stop 03/06/20 at 06:00; Status DC Ringer's Solution 1,000 ml @ 999 mls/hr 1X ONCE IV Last administered on 03/06/20at 09:54; Start 03/06/20 at 09:45; Stop 03/06/20 at 10:45; Status DC Ringer's Solution 1,000 ml @ 999 mls/hr 1X ONCE IV Last administered on 03/06/20at 13:40; Start 03/06/20 at 13:45; Stop 03/06/20 at 14:45; Status DC Ringer's Solution 1,000 ml @ 999 mls/hr 1X ONCE IV Last administered on 03/06/20at 18:43; Start 03/06/20 at 18:15; Stop 03/06/20 at 19:15; Status DC Sodium Chloride 200 ml @ 50 mls/hr 1X ONCE IV ; Start 03/07/20 at 13:30; Stop 03/07/20 at 17:29 Active Scripts Active Reported Flomax (Tamsulosin Hcl) 0.4 Mg Cap.er.24h 1 Cap PO QHS Vitals/I & O Vital Sign - Last 24 Hours 03/06/20 03/06/20 03/06/20 03/06/20 14:00 15:00 15:29 16:00 Pulse 114 106 Resp 16 16 B/P (MAP) 116/70 (85) 118/68 (85) Pulse Ox 100 100 100 O2 Delivery Ventilator Ventilator Ventilator Mechanical Ventilator 03/06/20 03/06/20 03/06/20 03/06/20 16:00 16:00 17:00 17:08 Temp 98.8 98.8 Pulse 114 118 Resp 16 16 B/P (MAP) 114/68 (83) 114/68 (83) Pulse Ox 100 100 100 O2 Delivery Ventilator Ventilator Ventilator 03/06/20 03/06/20 03/06/20 03/06/20 18:00 19:00 20:00 20:00 Temp 98.8 98.8 Pulse 120 114 103 103 Resp 16 16 16 B/P (MAP) 110/66 (81) 116/68 (84) 116/63 (80) 116/63 (80) Pulse Ox 100 100 100 O2 Delivery Ventilator Ventilator Ventilator 03/06/20 03/06/20 03/06/20 03/06/20 20:00 20:11 21:00 21:18 Pulse 97 Resp 16 16 B/P (MAP) 116/70 (85) Pulse Ox 100 100 100 O2 Delivery Mechanical Ventilator Ventilator Ventilator Ventilator 03/06/20 03/06/20 03/06/20 03/07/20 21:48 22:00 23:00 00:00 Pulse 97 100 100 Resp 16 16 16 B/P (MAP) 126/72 (90) 127/71 (89) 124/71 (88) Pulse Ox 100 100 100 O2 Delivery Ventilator Ventilator Ventilator 03/07/20 03/07/20 03/07/20 03/07/20 00:00 00:00 00:54 01:00 Temp 99.6 99.6 Pulse 100 100 Resp 16 16 B/P (MAP) 124/71 (88) 127/69 (88) Pulse Ox 100 100 100 O2 Delivery Ventilator Mechanical Ventilator Ventilator Ventilator 03/07/20 03/07/20 03/07/20 03/07/20 02:00 03:00 03:13 03:43 Pulse 108 103 Resp 16 16 16 16 B/P (MAP) 116/67 (83) 118/64 (82) Pulse Ox 100 100 100 100 O2 Delivery Ventilator Ventilator Ventilator Ventilator 03/07/20 03/07/20 03/07/20 03/07/20 04:00 04:00 04:00 04:25 Temp 98.7 98.7 Pulse 94 94 Resp 16 B/P (MAP) 114/70 (85) 114/70 (85) Pulse Ox 100 100 O2 Delivery Ventilator Mechanical Ventilator Ventilator 03/07/20 03/07/20 03/07/20 03/07/20 05:00 06:00 07:00 07:46 Pulse 109 104 86 Resp 16 16 16 B/P (MAP) 138/78 (98) 134/78 (96) 130/72 (91) Pulse Ox 100 100 100 100 O2 Delivery Ventilator Ventilator Ventilator Ventilator 03/07/20 03/07/20 03/07/20 03/07/20 08:00 08:00 08:00 09:00 Temp 98.9 98.9 Pulse 84 90 Resp 16 16 B/P (MAP) 140/68 (92) 104/58 (73) Pulse Ox 100 100 O2 Delivery Ventilator Mechanical Ventilator Ventilator 03/07/20 03/07/20 03/07/20 03/07/20 09:46 09:58 10:00 10:33 Pulse 88 Resp 16 16 16 B/P (MAP) 126/70 (88) Pulse Ox 100 100 100 O2 Delivery Ventilator Ventilator Ventilator 03/07/20 03/07/20 03/07/20 03/07/20 11:00 12:00 12:00 12:00 Temp 97.9 97.9 Pulse 88 88 Resp 16 16 B/P (MAP) 135/74 (94) 124/68 (86) Pulse Ox 100 100 O2 Delivery Ventilator Mechanical Ventilator Ventilator 03/07/20 03/07/20 03/07/20 03/07/20 12:07 12:18 12:33 13:00 Temp 98.0 97.9 98.0 97.9 Pulse 84 82 80 Resp 16 16 16 B/P (MAP) 123/68 138/76 154/82 (106) Pulse Ox 100 100 O2 Delivery Ventilator Ventilator Intake and Output 03/06/20 03/06/20 03/07/20 15:00 23:00 07:00 Intake Total 2050 ml 3047 ml 1037.7 ml Output Total 1480 ml 725 ml 715 ml Balance 570 ml 2322 ml 322.7 ml Nutrition Consultation Dietary Evaluation: Recommendations by RD: Dietary education by RD, Increase Calorie Intake, PPN/TPN Comments: If continued aggressive care desired, recommend TPN per followin g dextrose, 95 g AA, 20 g lipids Expected Outcomes/Goals: PPN for short-term, non-enteral nutrition needs at this time - met, new goal established New goal 03/07: TPN for nutrition needs if continued aggressive care desired Malnutrition Findings: Food and Nutrition Intake (Mod: <75% est energy req 7days Weight Status: Appropriate MARLYS ENCARNACION MD Mar 07, 2020 13:32
--- NOTE | 2020-03-07 14:32 | PDOC ---
SURGICAL PROGRESS NOTE Subjective Pt intubated and sedated, receiving one unit of blood Vital Signs Vital Signs Date Time Temp Pulse Resp B/P (MAP) Pulse Ox O2 Delivery O2 Flow Rate FiO2 03/07/20 14:00 97 16 94/50 (65) 100 Ventilator 03/07/20 13:38 98.5 98.5 I&O Intake and Output 03/07/20 07:00 Intake Total 6134.7 ml Output Total 2920 ml Balance 3214.7 ml IV Total 6134.7 ml Output Urine Total 670 ml Gastric Drainage Total 750 ml Drainage Total 1500 ml PATIENT HAS A DOZIER: Yes (cont for accurate i and os) General: No acute distress Abdomen: Soft, No tenderness, Other (AVI with serous drainage with bilious staining, duodenostomy tube with bilious output) Labs Laboratory Tests Test 03/05/20 15:40 03/05/20 16:15 03/05/20 16:55 03/06/20 05:00 Sodium Level 133 mmol/L (136-145) 131 mmol/L (136-145) Potassium Level 4.2 mmol/L (3.5-5.1) 4.2 mmol/L (3.5-5.1) Chloride Level 102 mmol/L (98-107) 101 mmol/L (98-107) Carbon Dioxide Level 20 mmol/L (21-32) 20 mmol/L (21-32) Anion Gap 11 (6-14) 10 (6-14) Blood Urea Nitrogen 40 mg/dL (8-26) 40 mg/dL (8-26) Creatinine 1.0 mg/dL (0.7-1.3) 1.1 mg/dL (0.7-1.3) Estimated GFR (Cockcroft-Gault) 73.7 66.0 Glucose Level 95 mg/dL (70-99) 167 mg/dL (70-99) Calcium Level 6.8 mg/dL (8.5-10.1) 6.6 mg/dL (8.5-10.1) White Blood Count 3.8 x10^3/uL (4.0-11.0) 19.6 x10^3/uL (4.0-11.0) Red Blood Count 3.38 x10^6/uL (4.30-5.70) 4.07 x10^6/uL (4.30-5.70) Hemoglobin 7.7 g/dL (13.0-17.5) 9.4 g/dL (13.0-17.5) Hematocrit 24.7 % (39.0-53.0) 29.9 % (39.0-53.0) Mean Corpuscular Volume 73 fL (79-100) 73 fL (79-100) Mean Corpuscular Hemoglobin 23 pg (25-35) 23 pg (25-35) Mean Corpuscular Hemoglobin Concent 31 g/dL (31-37) 32 g/dL (31-37) Red Cell Distribution Width 31.6 % (11.5-14.5) 29.7 % (11.5-14.5) Platelet Count 285 x10^3/uL (140-400) 301 x10^3/uL (140-400) Neutrophils (%) (Auto) 88 % (31-73) 91 % (31-73) Lymphocytes (%) (Auto) 7 % (24-48) 4 % (24-48) Monocytes (%) (Auto) 5 % (0-9) 5 % (0-9) Eosinophils (%) (Auto) 0 % (0-3) 0 % (0-3) Basophils (%) (Auto) 0 % (0-3) 0 % (0-3) Neutrophils # (Auto) 3.3 x10^3/uL (1.8-7.7) 17.9 x10^3/uL (1.8-7.7) Lymphocytes # (Auto) 0.3 x10^3/uL (1.0-4.8) 0.7 x10^3/uL (1.0-4.8) Monocytes # (Auto) 0.2 x10^3/uL (0.0-1.1) 1.0 x10^3/uL (0.0-1.1) Eosinophils # (Auto) 0.0 x10^3/uL (0.0-0.7) 0.0 x10^3/uL (0.0-0.7) Basophils # (Auto) 0.0 x10^3/uL (0.0-0.2) 0.0 x10^3/uL (0.0-0.2) Segmented Neutrophils % 69 % (35-66) Band Neutrophils % 22 % (0-9) Lymphocytes % 4 % (24-48) Monocytes % 3 % (0-10) Metamyelocytes % 1 % (0-0) Myelocytes % 1 % (0-0) Toxic Granulation Slight Platelet Estimate Adequate (ADEQUATE) Polychromasia Slight Hypochromasia Mod Anisocytosis Marked Microcytosis Mod Ovalocytes Few Schistocytes Occ O2 Saturation 99 % (92-99) Arterial Blood pH 7.40 (7.35-7.45) Arterial Blood pCO2 at Patient Temp 32 mmHg (35-46) Arterial Blood pO2 at Patient Temp 427 mmHg (65-108) Arterial Blood HCO3 20 mmol/L (21-28) Arterial Blood Base Excess -5 mmol/L (-3-3) Oxyhemoglobin 97.7 % Methemoglobin 0.3 % (0.0-1.9) Carbon Monoxide, Quantitative 0.8 % (0.0-1.9) FiO2 100 BUN/Creatinine Ratio 36 (6-20) Plasma/Serum Osmolality 278 mOsmol/kg (280-301) Total Bilirubin 0.9 mg/dL (0.2-1.0) Aspartate Amino Transf (AST/SGOT) 25 U/L (15-37) Alanine Aminotransferase (ALT/SGPT) 23 U/L (16-63) Alkaline Phosphatase 110 U/L (46-116) Total Protein 3.8 g/dL (6.4-8.2) Albumin 1.5 g/dL (3.4-5.0) Albumin/Globulin Ratio 0.7 (1.0-1.7) Test 03/06/20 08:00 03/06/20 11:50 03/07/20 05:50 03/07/20 08:00 O2 Saturation 98 % (92-99) 98 % (92-99) Arterial Blood pH 7.40 (7.35-7.45) 7.47 (7.35-7.45) Arterial Blood pCO2 at Patient Temp 29 mmHg (35-46) 28 mmHg (35-46) Arterial Blood pO2 at Patient Temp 180 mmHg (65-108) 140 mmHg (65-108) Arterial Blood HCO3 18 mmol/L (21-28) 20 mmol/L (21-28) Arterial Blood Base Excess -6 mmol/L (-3-3) -3 mmol/L (-3-3) FiO2 50%+5 40 Urine Sodium <20 mmol/L (Not Estab.) Urine Potassium 72.2 mmol/L (Not Estab.) Urine Chloride <20 mmol/L (Not Estab.) Sodium Level 128 mmol/L (136-145) Potassium Level 3.7 mmol/L (3.5-5.1) Chloride Level 98 mmol/L (98-107) Carbon Dioxide Level 22 mmol/L (21-32) Anion Gap 8 (6-14) Blood Urea Nitrogen 29 mg/dL (8-26) Creatinine 0.8 mg/dL (0.7-1.3) Estimated GFR (Cockcroft-Gault) 95.3 BUN/Creatinine Ratio 36 (6-20) Glucose Level 131 mg/dL (70-99) Calcium Level 6.2 mg/dL (8.5-10.1) Total Bilirubin 0.3 mg/dL (0.2-1.0) Aspartate Amino Transf (AST/SGOT) 19 U/L (15-37) Alanine Aminotransferase (ALT/SGPT) 17 U/L (16-63) Alkaline Phosphatase 97 U/L (46-116) Total Protein 3.3 g/dL (6.4-8.2) Albumin 0.9 g/dL (3.4-5.0) Albumin/Globulin Ratio 0.4 (1.0-1.7) Test 03/07/20 09:00 White Blood Count 14.3 x10^3/uL (4.0-11.0) Red Blood Count 2.99 x10^6/uL (4.30-5.70) Hemoglobin 6.8 g/dL (13.0-17.5) Hematocrit 21.7 % (39.0-53.0) Mean Corpuscular Volume 73 fL (79-100) Mean Corpuscular Hemoglobin 23 pg (25-35) Mean Corpuscular Hemoglobin Concent 31 g/dL (31-37) Red Cell Distribution Width 30.6 % (11.5-14.5) Platelet Count 207 x10^3/uL (140-400) Neutrophils (%) (Auto) 89 % (31-73) Lymphocytes (%) (Auto) 4 % (24-48) Monocytes (%) (Auto) 7 % (0-9) Eosinophils (%) (Auto) 0 % (0-3) Basophils (%) (Auto) 0 % (0-3) Neutrophils # (Auto) 12.7 x10^3/uL (1.8-7.7) Lymphocytes # (Auto) 0.6 x10^3/uL (1.0-4.8) Monocytes # (Auto) 1.0 x10^3/uL (0.0-1.1) Eosinophils # (Auto) 0.0 x10^3/uL (0.0-0.7) Basophils # (Auto) 0.0 x10^3/uL (0.0-0.2) Laboratory Tests Test 03/07/20 05:50 03/07/20 08:00 03/07/20 09:00 Sodium Level 128 mmol/L (136-145) Potassium Level 3.7 mmol/L (3.5-5.1) Chloride Level 98 mmol/L (98-107) Carbon Dioxide Level 22 mmol/L (21-32) Anion Gap 8 (6-14) Blood Urea Nitrogen 29 mg/dL (8-26) Creatinine 0.8 mg/dL (0.7-1.3) Estimated GFR (Cockcroft-Gault) 95.3 BUN/Creatinine Ratio 36 (6-20) Glucose Level 131 mg/dL (70-99) Calcium Level 6.2 mg/dL (8.5-10.1) Total Bilirubin 0.3 mg/dL (0.2-1.0) Aspartate Amino Transf (AST/SGOT) 19 U/L (15-37) Alanine Aminotransferase (ALT/SGPT) 17 U/L (16-63) Alkaline Phosphatase 97 U/L (46-116) Total Protein 3.3 g/dL (6.4-8.2) Albumin 0.9 g/dL (3.4-5.0) Albumin/Globulin Ratio 0.4 (1.0-1.7) O2 Saturation 98 % (92-99) Arterial Blood pH 7.47 (7.35-7.45) Arterial Blood pCO2 at Patient Temp 28 mmHg (35-46) Arterial Blood pO2 at Patient Temp 140 mmHg (65-108) Arterial Blood HCO3 20 mmol/L (21-28) Arterial Blood Base Excess -3 mmol/L (-3-3) FiO2 40 White Blood Count 14.3 x10^3/uL (4.0-11.0) Red Blood Count 2.99 x10^6/uL (4.30-5.70) Hemoglobin 6.8 g/dL (13.0-17.5) Hematocrit 21.7 % (39.0-53.0) Mean Corpuscular Volume 73 fL (79-100) Mean Corpuscular Hemoglobin 23 pg (25-35) Mean Corpuscular Hemoglobin Concent 31 g/dL (31-37) Red Cell Distribution Width 30.6 % (11.5-14.5) Platelet Count 207 x10^3/uL (140-400) Neutrophils (%) (Auto) 89 % (31-73) Lymphocytes (%) (Auto) 4 % (24-48) Monocytes (%) (Auto) 7 % (0-9) Eosinophils (%) (Auto) 0 % (0-3) Basophils (%) (Auto) 0 % (0-3) Neutrophils # (Auto) 12.7 x10^3/uL (1.8-7.7) Lymphocytes # (Auto) 0.6 x10^3/uL (1.0-4.8) Monocytes # (Auto) 1.0 x10^3/uL (0.0-1.1) Eosinophils # (Auto) 0.0 x10^3/uL (0.0-0.7) Basophils # (Auto) 0.0 x10^3/uL (0.0-0.2) Problem List Problems Medical Problems: (1) Anemia Status: Acute (2) Colonic mass Status: Acute (3) Fatigue Status: Acute (4) Hypocalcemia Status: Acute (5) Nausea & vomiting Status: Acute (6) SBO (small bowel obstruction) Status: Acute Assessment/Plan s/p right colon resection cont supportive care pt has poor long-term prognosis Justicifation of Admission Dx: Justifications for Admission: Justification of Admission Dx: Yes MEGAN WILLIAMSON MD Mar 07, 2020 14:32
--- NOTE | 2020-03-07 15:19 | NUR ---
SS following up with discharge planning. SS and physician spoke with pt's brother, Markos, via phone. Pt's brother requesting LTACH at this time. Pt's brother requesting referral be phoned and faxed to [facility], ; fax [phone]. SS phoned and faxed referral to [facility]. SS will await acceptance decision and will proceed accordingly.
[2020-03-07] MEDS: TAMSULOSIN 0.4 MG CAP.ER.24H. PO SCH (21:00)
[2020-03-08] VITALS (27 sets, daily range): BP systolic 82–130; BP diastolic 48–73
[2020-03-08] MEDS: PIPERACILLIN/TAZOBACTAM 3.375 GM in IV NORMAL SALINE 50ML 50 ML IV SCH ×3 (05:39→17:49)
[2020-03-08 06:24] LABS: HEMATOCRIT 21.6 % (39.0-53.0); HEMOGLOBIN 7.1 g/dL (13.0-17.5); RED BLOOD COUNT 2.87 x10^6/uL (4.30-5.70); RED CELL DISTRIBUTION WIDTH 30.3 % (11.5-14.5); WHITE BLOOD COUNT 10.7 x10^3/uL (4.0-11.0)
[2020-03-08 06:43] LABS: CREATININE 0.6 mg/dL (0.7-1.3); GFR 132.8; MAGNESIUM 1.5 mg/dL (1.8-2.4); PHOSPHORUS 1.6 mg/dL (2.6-4.7)
[2020-03-08] MEDS: VASOPRESSIN 20 UNIT in IV DEXTROSE 5% 100ML 100 ML IV PRN (06:43)
[2020-03-08 06:47] LABS: CALCIUM 5.9 mg/dL (8.5-10.1)
[2020-03-08] MEDS: PANTOPRAZOLE IV PUSH 40 MG VIAL. IVP SCH (07:59)
[2020-03-08] MEDS: ENOXAPARIN 40 MG/0.4 ML SYRINGE. SQ SCH (08:00)
[2020-03-08] MEDS ORDERED: MAGNESIUM SULFATE 2GM 50 ML IV ONE (08:00)
[2020-03-08] MEDS ORDERED: SODIUM CHLORIDE 3 % 300 ML IV ONE (08:00)
[2020-03-08] MEDS: POTASSIUM PHOS,M-BASIC-D-BASIC 13.6 MMOL in IV NORMAL SALINE 250ML 250 ML IV SCH ×3 (08:01→16:52)
[2020-03-08 08:27] LABS: BASE EXCESS ABG -2 mmol/L (-3-3); HCO3 ABG 22 mmol/L (21-28); PCO2 ABG 30 mmHg (35-46); PO2 ABG 109 mmHg (65-108); SAT O2 ABG 97 % (92-99)
[2020-03-08 09:16] LABS: FIO2 ABG 40
--- NOTE | 2020-03-08 09:21 | PDOC ---
SURGICAL PROGRESS NOTE Subjective Patient is intubated and sedated Vital Signs Vital Signs Date Time Temp Pulse Resp B/P (MAP) Pulse Ox O2 Delivery O2 Flow Rate FiO2 03/08/20 08:00 03/08/20 08:00 Mechanical Ventilator 03/08/20 08:00 97.7 76 16 100 97.7 I&O Intake and Output 03/08/20 07:00 Intake Total 2577.81 ml Output Total 1540 ml Balance 1037.81 ml IV Total 2227.81 ml Blood Product IV Normal Saline Flush 350 ml Output Urine Total 645 ml Drainage Total 895 ml PATIENT HAS A DOZIER: Yes General: Other (Sedated on a ventilator) HEENT: Other (NG tube in place) Lungs: Clear to auscultation, Normal air movement Heart: Regular rate Abdomen: Soft, Other (Wound dressing intact AVI drain with serous output du odenal drain with some bilious output) Extremities: Other (Mild edema) Skin: No significant lesion Labs Laboratory Tests Test 03/06/20 11:50 03/07/20 05:50 03/07/20 08:00 03/07/20 09:00 Urine Sodium <20 mmol/L (Not Estab.) Urine Potassium 72.2 mmol/L (Not Estab.) Urine Chloride <20 mmol/L (Not Estab.) Sodium Level 128 mmol/L (136-145) Potassium Level 3.7 mmol/L (3.5-5.1) Chloride Level 98 mmol/L (98-107) Carbon Dioxide Level 22 mmol/L (21-32) Anion Gap 8 (6-14) Blood Urea Nitrogen 29 mg/dL (8-26) Creatinine 0.8 mg/dL (0.7-1.3) Estimated GFR (Cockcroft-Gault) 95.3 BUN/Creatinine Ratio 36 (6-20) Glucose Level 131 mg/dL (70-99) Calcium Level 6.2 mg/dL (8.5-10.1) Total Bilirubin 0.3 mg/dL (0.2-1.0) Aspartate Amino Transf (AST/SGOT) 19 U/L (15-37) Alanine Aminotransferase (ALT/SGPT) 17 U/L (16-63) Alkaline Phosphatase 97 U/L (46-116) Total Protein 3.3 g/dL (6.4-8.2) Albumin 0.9 g/dL (3.4-5.0) Albumin/Globulin Ratio 0.4 (1.0-1.7) O2 Saturation 98 % (92-99) Arterial Blood pH 7.47 (7.35-7.45) Arterial Blood pCO2 at Patient Temp 28 mmHg (35-46) Arterial Blood pO2 at Patient Temp 140 mmHg (65-108) Arterial Blood HCO3 20 mmol/L (21-28) Arterial Blood Base Excess -3 mmol/L (-3-3) FiO2 40 White Blood Count 14.3 x10^3/uL (4.0-11.0) Red Blood Count 2.99 x10^6/uL (4.30-5.70) Hemoglobin 6.8 g/dL (13.0-17.5) Hematocrit 21.7 % (39.0-53.0) Mean Corpuscular Volume 73 fL (79-100) Mean Corpuscular Hemoglobin 23 pg (25-35) Mean Corpuscular Hemoglobin Concent 31 g/dL (31-37) Red Cell Distribution Width 30.6 % (11.5-14.5) Platelet Count 207 x10^3/uL (140-400) Neutrophils (%) (Auto) 89 % (31-73) Lymphocytes (%) (Auto) 4 % (24-48) Monocytes (%) (Auto) 7 % (0-9) Eosinophils (%) (Auto) 0 % (0-3) Basophils (%) (Auto) 0 % (0-3) Neutrophils # (Auto) 12.7 x10^3/uL (1.8-7.7) Lymphocytes # (Auto) 0.6 x10^3/uL (1.0-4.8) Monocytes # (Auto) 1.0 x10^3/uL (0.0-1.1) Eosinophils # (Auto) 0.0 x10^3/uL (0.0-0.7) Basophils # (Auto) 0.0 x10^3/uL (0.0-0.2) Test 03/08/20 05:40 03/08/20 08:00 White Blood Count 10.7 x10^3/uL (4.0-11.0) Red Blood Count 2.87 x10^6/uL (4.30-5.70) Hemoglobin 7.1 g/dL (13.0-17.5) Hematocrit 21.6 % (39.0-53.0) Mean Corpuscular Volume 75 fL (79-100) Mean Corpuscular Hemoglobin 25 pg (25-35) Mean Corpuscular Hemoglobin Concent 33 g/dL (31-37) Red Cell Distribution Width 30.3 % (11.5-14.5) Platelet Count 179 x10^3/uL (140-400) Sodium Level 128 mmol/L (136-145) Potassium Level 3.0 mmol/L (3.5-5.1) Chloride Level 98 mmol/L (98-107) Carbon Dioxide Level 25 mmol/L (21-32) Anion Gap 5 (6-14) Blood Urea Nitrogen 22 mg/dL (8-26) Creatinine 0.6 mg/dL (0.7-1.3) Estimated GFR (Cockcroft-Gault) 132.8 Glucose Level 91 mg/dL (70-99) Calcium Level 5.9 mg/dL (8.5-10.1) Phosphorus Level 1.6 mg/dL (2.6-4.7) Magnesium Level 1.5 mg/dL (1.8-2.4) Albumin 0.8 g/dL (3.4-5.0) O2 Saturation 97 % (92-99) Arterial Blood pH 7.48 (7.35-7.45) Arterial Blood pCO2 at Patient Temp 30 mmHg (35-46) Arterial Blood pO2 at Patient Temp 109 mmHg (65-108) Arterial Blood HCO3 22 mmol/L (21-28) Arterial Blood Base Excess -2 mmol/L (-3-3) FiO2 40 Laboratory Tests Test 03/08/20 05:40 03/08/20 08:00 White Blood Count 10.7 x10^3/uL (4.0-11.0) Red Blood Count 2.87 x10^6/uL (4.30-5.70) Hemoglobin 7.1 g/dL (13.0-17.5) Hematocrit 21.6 % (39.0-53.0) Mean Corpuscular Volume 75 fL (79-100) Mean Corpuscular Hemoglobin 25 pg (25-35) Mean Corpuscular Hemoglobin Concent 33 g/dL (31-37) Red Cell Distribution Width 30.3 % (11.5-14.5) Platelet Count 179 x10^3/uL (140-400) Sodium Level 128 mmol/L (136-145) Potassium Level 3.0 mmol/L (3.5-5.1) Chloride Level 98 mmol/L (98-107) Carbon Dioxide Level 25 mmol/L (21-32) Anion Gap 5 (6-14) Blood Urea Nitrogen 22 mg/dL (8-26) Creatinine 0.6 mg/dL (0.7-1.3) Estimated GFR (Cockcroft-Gault) 132.8 Glucose Level 91 mg/dL (70-99) Calcium Level 5.9 mg/dL (8.5-10.1) Phosphorus Level 1.6 mg/dL (2.6-4.7) Magnesium Level 1.5 mg/dL (1.8-2.4) Albumin 0.8 g/dL (3.4-5.0) O2 Saturation 97 % (92-99) Arterial Blood pH 7.48 (7.35-7.45) Arterial Blood pCO2 at Patient Temp 30 mmHg (35-46) Arterial Blood pO2 at Patient Temp 109 mmHg (65-108) Arterial Blood HCO3 22 mmol/L (21-28) Arterial Blood Base Excess -2 mmol/L (-3-3) FiO2 40 Problem List Problems Medical Problems: (1) Anemia Status: Acute (2) Colonic mass Status: Acute (3) Fatigue Status: Acute (4) Hypocalcemia Status: Acute (5) Nausea & vomiting Status: Acute (6) SBO (small bowel obstruction) Status: Acute Assessment/Plan Status post colon resection for large tumor partial duodenal resection Albumin 0.8, awaiting return of bowel function prior to starting tube feeds Supportive care, prognosis is quite poor Justicifation of Admission Dx: Justifications for Admission: Justification of Admission Dx: Yes TRISTIAN SCRUGGS MD Mar 08, 2020 09:21
--- NOTE | 2020-03-08 09:26 | PDOC ---
SUBJECTIVE ROS Remains Intubated ,On MV , OBJECTIVE Vital Signs Vital Signs Date Time Temp Pulse Resp B/P (MAP) Pulse Ox O2 Delivery O2 Flow Rate FiO2 03/08/20 08:00 03/08/20 08:00 Mechanical Ventilator 03/08/20 08:00 97.7 76 16 100 97.7 I & 0 Intake and Output 03/08/20 07:00 Intake Total 2577.81 ml Output Total 1540 ml Balance 1037.81 ml IV Total 2227.81 ml Blood Product IV Normal Saline Flush 350 ml Output Urine Total 645 ml Drainage Total 895 ml PHYSICAL EXAM Physical Exam General Appearance: no apparent distress HEEN Intubated Skin: warm Respiratory: decreased at bases Heart: S1S2 Abdomen: s/p Surgery Genitourinary: Booth + Neurology: Intubated DIAGNOSIS/ASSESSMENT Assessment & Plan Hyponatremia - Na stable 128 Recd 3% Saline yest ,Restart , monitor- discussed with RN GEORGES- Resolved LR per GS , pressors, supportive care , avoid nephrotoxins HypoCalcemia- Albumin 0.8, Corrected Ca Normal HyPhos- Replace HypoMg- Replace 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 S/P Open right colon resection, partial resection of duodenum, placement of duodenostomy tube, cholecystectomy with cholangiogram, ghost ileostomy Anemia- drop in Hgb , management per GS HX of prostate cancer BPH Critically ill COMMENT/RELEVANT DATA Meds Current Medications Medications (Trade) Dose Ordered Sig/Faisal Start Time Stop Time Status Last Admin Dose Admin Acetaminophen (Tylenol Supp) 650 mg PRN Q4HRS PRN 03/03/20 09:45 Albumin Human 500 ml @ As Directed STK-MED ONCE 03/05/20 13:13 03/05/20 13:14 DC Amino Acids/ Glycerin/ Electrolytes 1,000 ml @ 80 mls/hr [id number] 03/03/20 15:00 03/07/20 13:22 DC 03/07/20 02:41 80 MLS/HR Bisacodyl (Dulcolax Supp) 10 mg 1X ONCE 03/04/20 10:00 03/04/20 10:05 DC 03/04/20 12:18 10 MG Bisacodyl (Dulcolax Tab) 10 mg PRN DAILY PRN 03/03/20 09:45 03/06/20 10:25 DC 03/03/20 13:47 10 MG Bupivacaine HCl/ Epinephrine Bitart (Sensorcain-Epi 0.5%-1:[id number] Mpf) 30 ml STK-MED ONCE 03/05/20 10:42 03/05/20 10:42 DC Calcium Gluconate (Calcium Gluconate) 1,000 mg 1X ONCE 03/02/20 18:15 03/02/20 18:18 DC 03/02/20 18:21 1,000 MG Cefoxitin Sodium (Mefoxin) 1 gm STK-MED ONCE 03/05/20 12:57 03/05/20 12:57 DC Dexamethasone Sodium Phosphate (Decadron) 4 mg STK-MED ONCE 03/05/20 10:23 03/05/20 10:23 DC Docusate Sodium (Colace) 100 mg DAILY 03/03/20 12:00 03/06/20 10:25 DC 03/04/20 09:21 100 MG Enoxaparin Sodium (Lovenox 40mg Syringe) 40 mg Q24H 03/06/20 08:00 03/07/20 08:55 40 MG Enoxaparin Sodium (Lovenox Per Pharmacy Prophylaxis Dosing) 1 each PRN DAILY PRN 03/02/20 20:30 Cancel Ephedrine Sulfate (ePHEDrine PF IN SALINE SYRINGE) 50 mg STK-MED ONCE 03/05/20 12:13 03/05/20 12:14 DC Fentanyl Citrate 30 ml @ 2.5 mls/hr CONT PRN PRN 03/05/20 15:15 03/08/20 06:43 2.5 MLS/HR Fentanyl Citrate (Fentanyl 2ml Vial) 100 mcg STK-MED ONCE 03/05/20 10:24 03/05/20 10:24 DC Furosemide (Lasix) 40 mg 1X ONCE 03/03/20 15:00 03/03/20 15:01 DC 03/03/20 16:48 40 MG Hydromorphone HCl (Dilaudid) 0.5 mg PRN Q10MIN PRN 03/05/20 07:15 03/05/20 20:00 DC Info (CONTRAST GIVEN -- Rx MONITORING) 1 each PRN DAILY PRN 03/03/20 16:15 03/05/20 16:15 DC Iohexol (Omnipaque 300 Mg/ml) 50 ml STK-MED ONCE 03/05/20 10:41 03/05/20 10:41 DC 03/05/20 11:43 27 ML Lidocaine (Lidoderm) 1 patch DAILY 03/04/20 16:30 Cancel Lidocaine HCl (Lidocaine Pf 2% Vial) 5 ml STK-MED ONCE 03/05/20 10:23 03/05/20 10:23 DC Lidocaine HCl (Xylocaine-Mpf 1% 2ml Vial) 2 ml 1X PRN PRN 03/05/20 07:15 03/05/20 20:00 DC Magnesium Sulfate 50 ml @ 25 mls/hr 1X ONCE 03/08/20 08:00 03/08/20 09:59 03/08/20 08:00 25 MLS/HR Midazolam HCl 100 mg/Sodium Chloride 100 ml @ 1 mls/hr CONT PRN 03/05/20 15:15 03/07/20 21:33 5 MLS/HR Miscellaneous (Lidoderm Patch Removal) 1 ea QHS 03/04/20 21:00 Cancel Morphine Sulfate 30 ml @ 0 mls/hr CONT PRN PRN 03/05/20 16:15 03/06/20 09:48 DC Morphine Sulfate (Morphine Sulfate) 1 mg PRN Q10MIN PRN 03/05/20 07:15 03/05/20 20:00 DC Naloxone HCl (Narcan) 0.4 mg PRN Q2MIN PRN 03/05/20 16:15 Norepinephrine Bitartrate 8 mg/ Dextrose 258 ml @ 15.287 mls/ hr CONT PRN 03/05/20 15:30 03/07/20 21:33 15.287 MLS/HR Ondansetron HCl (Zofran) 4 mg PRN Q6HRS PRN 03/05/20 16:15 Pantoprazole Sodium (PROTONIX VIAL for IV PUSH) 40 mg DAILYAC 03/05/20 10:30 03/08/20 07:59 40 MG Phenylephrine HCl (Devin-Synephrine Inj) 10 mg STK-MED ONCE 03/05/20 14:35 03/05/20 14:36 DC Phenylephrine HCl (PHENYLEPHRINE in 0.9% NACL PF) 1 mg STK-MED ONCE 03/05/20 12:13 03/05/20 12:14 DC Piperacillin Sod/ Tazobactam Sod 3.375 gm/Sodium Chloride 50 ml @ 100 mls/hr Q6HRS 03/05/20 17:00 03/08/20 05:39 100 MLS/HR Polyethylene Glycol (miraLAX PACKET) 17 gm QHS 03/03/20 21:00 03/06/20 10:25 DC 03/04/20 21:03 17 GM Potassium Phosphate 13.6 mmol/Sodium Chloride 254.5333 ml @ 62.5 mls/hr Q4H 03/08/20 08:30 03/08/20 20:29 03/08/20 08:01 62.5 MLS/HR Prochlorperazine Edisylate (Compazine) 5 mg PACU PRN PRN 03/05/20 07:15 03/06/20 07:14 DC Propofol (Diprivan) 200 mg STK-MED ONCE 03/05/20 10:23 03/05/20 10:23 DC Psyllium Hydrophilic Mucilloid (Metamucil Fiber Packet) 1 pkt QHS 03/03/20 21:00 03/06/20 10:25 DC 03/04/20 21:03 1 PKT Ringer's Solution 1,000 ml @ 999 mls/hr 1X ONCE 03/06/20 18:15 03/06/20 19:15 DC 03/06/20 18:43 999 MLS/HR Rocuronium [place] (Zemuron) 50 mg STK-MED ONCE 03/05/20 12:27 03/05/20 12:27 DC Sevoflurane (Ultane) 90 ml STK-MED ONCE 03/05/20 14:30 03/05/20 14:30 DC Sodium Chloride 300 ml @ 50 mls/hr 1X ONCE 03/08/20 08:00 03/08/20 13:59 03/08/20 08:00 50 MLS/HR Sodium Chloride (Normal Saline Flush) 3 ml QSHIFT PRN 03/05/20 16:15 Succinylcholine Chloride (Anectine) 200 mg STK-MED ONCE 03/05/20 10:23 03/05/20 10:23 DC Tamsulosin HCl (Flomax) 0.4 mg HS 03/02/20 23:45 03/04/20 21:03 0.4 MG Vasopressin 20 unit/Dextrose 101 ml @ 12 mls/hr CONT PRN 03/05/20 20:00 03/08/20 06:43 12 MLS/HR Lab Laboratory Tests Test 03/08/20 05:40 03/08/20 08:00 White Blood Count 10.7 x10^3/uL (4.0-11.0) Red Blood Count 2.87 x10^6/uL (4.30-5.70) Hemoglobin 7.1 g/dL (13.0-17.5) Hematocrit 21.6 % (39.0-53.0) Mean Corpuscular Volume 75 fL (79-100) Mean Corpuscular Hemoglobin 25 pg (25-35) Mean Corpuscular Hemoglobin Concent 33 g/dL (31-37) Red Cell Distribution Width 30.3 % (11.5-14.5) Platelet Count 179 x10^3/uL (140-400) Sodium Level 128 mmol/L (136-145) Potassium Level 3.0 mmol/L (3.5-5.1) Chloride Level 98 mmol/L (98-107) Carbon Dioxide Level 25 mmol/L (21-32) Anion Gap 5 (6-14) Blood Urea Nitrogen 22 mg/dL (8-26) Creatinine 0.6 mg/dL (0.7-1.3) Estimated GFR (Cockcroft-Gault) 132.8 Glucose Level 91 mg/dL (70-99) Calcium Level 5.9 mg/dL (8.5-10.1) Phosphorus Level 1.6 mg/dL (2.6-4.7) Magnesium Level 1.5 mg/dL (1.8-2.4) Albumin 0.8 g/dL (3.4-5.0) O2 Saturation 97 % (92-99) Arterial Blood pH 7.48 (7.35-7.45) Arterial Blood pCO2 at Patient Temp 30 mmHg (35-46) Arterial Blood pO2 at Patient Temp 109 mmHg (65-108) Arterial Blood HCO3 22 mmol/L (21-28) Arterial Blood Base Excess -2 mmol/L (-3-3) FiO2 40 Results All relevant outside records, renal labs, imaging studies, telemetry/EKG's were reviewed. Justicifation of Admission Dx: Justifications for Admission: Justification of Admission Dx: Yes SUZANNE KATHLEEN MD Mar 08, 2020 09:26
--- NOTE | 2020-03-08 09:30 | PDOC ---
PULMONARY PROGRESS NOTES Subjective Remains sedated, on norepinephrine, vasopressin assist control ventilation Vitals Vital Signs Date Time Temp Pulse Resp B/P (MAP) Pulse Ox O2 Delivery O2 Flow Rate FiO2 03/08/20 08:00 03/08/20 08:00 Mechanical Ventilator 03/08/20 08:00 97.7 76 16 100 97.7 Lungs: Clear Cardiovascular: S1, S2 Abdomen: Other (Dressing in place) Extremities: No Edema Skin: Warm Labs Laboratory Tests Test 03/06/20 11:50 03/07/20 05:50 03/07/20 08:00 03/07/20 09:00 Urine Sodium <20 mmol/L (Not Estab.) Urine Potassium 72.2 mmol/L (Not Estab.) Urine Chloride <20 mmol/L (Not Estab.) Sodium Level 128 mmol/L (136-145) Potassium Level 3.7 mmol/L (3.5-5.1) Chloride Level 98 mmol/L (98-107) Carbon Dioxide Level 22 mmol/L (21-32) Anion Gap 8 (6-14) Blood Urea Nitrogen 29 mg/dL (8-26) Creatinine 0.8 mg/dL (0.7-1.3) Estimated GFR (Cockcroft-Gault) 95.3 BUN/Creatinine Ratio 36 (6-20) Glucose Level 131 mg/dL (70-99) Calcium Level 6.2 mg/dL (8.5-10.1) Total Bilirubin 0.3 mg/dL (0.2-1.0) Aspartate Amino Transf (AST/SGOT) 19 U/L (15-37) Alanine Aminotransferase (ALT/SGPT) 17 U/L (16-63) Alkaline Phosphatase 97 U/L (46-116) Total Protein 3.3 g/dL (6.4-8.2) Albumin 0.9 g/dL (3.4-5.0) Albumin/Globulin Ratio 0.4 (1.0-1.7) O2 Saturation 98 % (92-99) Arterial Blood pH 7.47 (7.35-7.45) Arterial Blood pCO2 at Patient Temp 28 mmHg (35-46) Arterial Blood pO2 at Patient Temp 140 mmHg (65-108) Arterial Blood HCO3 20 mmol/L (21-28) Arterial Blood Base Excess -3 mmol/L (-3-3) FiO2 40 White Blood Count 14.3 x10^3/uL (4.0-11.0) Red Blood Count 2.99 x10^6/uL (4.30-5.70) Hemoglobin 6.8 g/dL (13.0-17.5) Hematocrit 21.7 % (39.0-53.0) Mean Corpuscular Volume 73 fL (79-100) Mean Corpuscular Hemoglobin 23 pg (25-35) Mean Corpuscular Hemoglobin Concent 31 g/dL (31-37) Red Cell Distribution Width 30.6 % (11.5-14.5) Platelet Count 207 x10^3/uL (140-400) Neutrophils (%) (Auto) 89 % (31-73) Lymphocytes (%) (Auto) 4 % (24-48) Monocytes (%) (Auto) 7 % (0-9) Eosinophils (%) (Auto) 0 % (0-3) Basophils (%) (Auto) 0 % (0-3) Neutrophils # (Auto) 12.7 x10^3/uL (1.8-7.7) Lymphocytes # (Auto) 0.6 x10^3/uL (1.0-4.8) Monocytes # (Auto) 1.0 x10^3/uL (0.0-1.1) Eosinophils # (Auto) 0.0 x10^3/uL (0.0-0.7) Basophils # (Auto) 0.0 x10^3/uL (0.0-0.2) Test 03/08/20 05:40 03/08/20 08:00 White Blood Count 10.7 x10^3/uL (4.0-11.0) Red Blood Count 2.87 x10^6/uL (4.30-5.70) Hemoglobin 7.1 g/dL (13.0-17.5) Hematocrit 21.6 % (39.0-53.0) Mean Corpuscular Volume 75 fL (79-100) Mean Corpuscular Hemoglobin 25 pg (25-35) Mean Corpuscular Hemoglobin Concent 33 g/dL (31-37) Red Cell Distribution Width 30.3 % (11.5-14.5) Platelet Count 179 x10^3/uL (140-400) Sodium Level 128 mmol/L (136-145) Potassium Level 3.0 mmol/L (3.5-5.1) Chloride Level 98 mmol/L (98-107) Carbon Dioxide Level 25 mmol/L (21-32) Anion Gap 5 (6-14) Blood Urea Nitrogen 22 mg/dL (8-26) Creatinine 0.6 mg/dL (0.7-1.3) Estimated GFR (Cockcroft-Gault) 132.8 Glucose Level 91 mg/dL (70-99) Calcium Level 5.9 mg/dL (8.5-10.1) Phosphorus Level 1.6 mg/dL (2.6-4.7) Magnesium Level 1.5 mg/dL (1.8-2.4) Albumin 0.8 g/dL (3.4-5.0) O2 Saturation 97 % (92-99) Arterial Blood pH 7.48 (7.35-7.45) Arterial Blood pCO2 at Patient Temp 30 mmHg (35-46) Arterial Blood pO2 at Patient Temp 109 mmHg (65-108) Arterial Blood HCO3 22 mmol/L (21-28) Arterial Blood Base Excess -2 mmol/L (-3-3) FiO2 40 Laboratory Tests Test 03/08/20 05:40 03/08/20 08:00 White Blood Count 10.7 x10^3/uL (4.0-11.0) Red Blood Count 2.87 x10^6/uL (4.30-5.70) Hemoglobin 7.1 g/dL (13.0-17.5) Hematocrit 21.6 % (39.0-53.0) Mean Corpuscular Volume 75 fL (79-100) Mean Corpuscular Hemoglobin 25 pg (25-35) Mean Corpuscular Hemoglobin Concent 33 g/dL (31-37) Red Cell Distribution Width 30.3 % (11.5-14.5) Platelet Count 179 x10^3/uL (140-400) Sodium Level 128 mmol/L (136-145) Potassium Level 3.0 mmol/L (3.5-5.1) Chloride Level 98 mmol/L (98-107) Carbon Dioxide Level 25 mmol/L (21-32) Anion Gap 5 (6-14) Blood Urea Nitrogen 22 mg/dL (8-26) Creatinine 0.6 mg/dL (0.7-1.3) Estimated GFR (Cockcroft-Gault) 132.8 Glucose Level 91 mg/dL (70-99) Calcium Level 5.9 mg/dL (8.5-10.1) Phosphorus Level 1.6 mg/dL (2.6-4.7) Magnesium Level 1.5 mg/dL (1.8-2.4) Albumin 0.8 g/dL (3.4-5.0) O2 Saturation 97 % (92-99) Arterial Blood pH 7.48 (7.35-7.45) Arterial Blood pCO2 at Patient Temp 30 mmHg (35-46) Arterial Blood pO2 at Patient Temp 109 mmHg (65-108) Arterial Blood HCO3 22 mmol/L (21-28) Arterial Blood Base Excess -2 mmol/L (-3-3) FiO2 40 Medications Active Scripts Medications Dose Route/Sig Max Daily Dose Days Date Category Flomax (Tamsulosin Hcl) 0.4 Mg Cap.er.24h 1 Cap PO QHS 03/02/20 Reported Impression . IMPRESSION: 1. Acute hypoxemic respiratory failure, expected status post surgical intervention for colonic mass. 2. Obstructing colonic cancer. 3. History of prostate cancer. 4. Severe protein malnutrition present upon admission. 5. Tobacco dependent. 6. Chronic obstructive pulmonary disease. 7. SARS-CoV-2 negative. 8. Cholelithiasis. 9. Hyponatremia. 10. Protein malnutrition, present upon admission. 11. Benign prostatic hypertrophy. 12. S/p open right colon resection, partial resection of duodenum, placement of duodenostomy tube, cholecystectomy, ghost ileostomy 13. Acute blood loss anemia 14. Respiratory alkalosis 15. Hypocalcemia Plan . Follow nephrology input Not ready for weaning trial Minute ventilation adjusted Continue assist control ventilation IV fluids IV pressors Empiric antibiotics DVT GI prophylaxis Transfuse, as needed Total cumulative critical care time of 30 minutes reviewing data, labs, chest x-ray and formulating a plan. DOTTIE WILBURN MD Mar 08, 2020 09:30
--- NOTE | 2020-03-08 09:45 | NUR ---
SS following up with discharge planning. SS reviewed pt chart and discussed with pt RN. Pt accepted at [facility], ; fax [phone]. Pt's son notified. Pt remains on the vent at this time. Pt on pressors and IV Zosyn. COVID19 negative. SS will continue to follow for discharge planning.
--- NOTE | 2020-03-08 10:09 | PDOC ---
PROGRESS NOTES Chief Complaint Chief Complaint nause and vomiting with abd pain Fatigue Weight Loss Small bowel dilatation/obstruction suspicious for primary colon cancer 10.5cm mass with surrounding lymph nodes concerning for metastatic disease 10.5 cm colonic mass. Colonic mass abuts the right hepatic lobe inferior margin as well as the duodenum and anterior right kidney (extending through or deforming Gerota's fascia), suspicious for primary colon cancer. Prominent associated lymph nodes are seen, possibly metastatic Obstructing right colon cancer Dialated Appendix fatty liver dz Gallstones Microcytic Anemia Alkaline Phosphatemia Hyponatremia Mild Leukocytosis Tachycardia H/o prostate cancer in remission Severe protein calorie malnutrition LE edema - BNP of 350, no cardiac history and no symptoms of CHF. This is unlikely to be cardiac related at all. Likely likely lymphatic obstruction due to abdominal mass. Hyponatremia - likely due to poor PO intake, SERUM OSMOLALITY PENDING HYPOTENSION, POSSIBLE SEPSIS NPO vent support post=op s/p open right colon POD # 1 remains critically ill 38 min cc time History of Present Illness History of Present Illness Mr Claudio is a 69 yo CM hx of prostate cancer s/p radiation, HTN, prediabetes now off meds who presents with vomiting fatigue diarrhea weight loss and decreased appetite for 1 month. He went to see his PCP because over the past week he had sudden onset lower extremity edema, patient had labs drawn as outpatient and called by PCP to go to the hospital for a blood transfusion and treatment for CHF. No history of CHF. On ROS he just notes his bones feel heavy. He also notes over the past 2 months sometimes he will choke on food and vomited up. His last bowel movement was 2 days ago and it was diarrhea. He has not been able to eat very well. He just feels tired. He stopped smoking over 25 years ago and he only did smoke cigars at that time. With regard to his prostate cancer he states that he had 43 radiation treatments and had a PET scan at the end of 2019 and was told he is in remission. He has never had a colonoscopy. in ED patient found to have hb of 9.8. na 130. noted to be tachy with HR 110. Patient lives with 101 year old mom. His mother has history of stage III colon cancer diagnosed at age 76. His brother has history of prostate cancer, father of lung cancer. Ct abdomen in ED revealed: 1. Small bowel dilatation/obstruction to the level of a 10.5 cm colonic mass. Colonic mass abuts the right hepatic lobe inferior margin as well as the d uodenum and anterior right kidney (extending through or deforming Gerota's fascia), suspicious for primary colon cancer. Prominent associated lymph nodes are seen, possibly metastatic. Otherwise no abdominal or pelvic lymphadenopathy. 2. The appendix is dilated with infiltration mostly at the base. Although this may secondary dilation from obstruction from the colonic mass, acute appendicitis cannot be excluded but is felt to be less likely. 3. Hepatic hypoattenuation likely fatty liver. 4. Small gallstone is seen within the gallbladder 03/05: He has some nausea, he is worried about his mother going into hospice. Afebrile. NA 132. Started on PPN. Given Lasix with improvement in his edema. No chest pain or shortness of breath, a lot of weakness and says he feels weak in his bones. 2x BM overnight Vitals Vitals Vital Signs Date Time Temp Pulse Resp B/P (MAP) Pulse Ox O2 Delivery O2 Flow Rate FiO2 03/08/20 09:39 100 Ventilator 03/08/20 09:00 85 16 102/58 (73) 03/08/20 08:00 97.7 97.7 Physical Exam Physical Exam SEDATED ON VENT General: Other (Sedated on a ventilator) Heart: Regular rate Lungs: Clear Abdomen: Soft, Other (Wound dressing intact AVI drain with serous output duodenal drain with some bilious output) Extremities: Other (Mild edema) Skin: No significant lesion Labs LABS Laboratory Tests Test 03/08/20 05:40 03/08/20 08:00 White Blood Count 10.7 x10^3/uL (4.0-11.0) Red Blood Count 2.87 x10^6/uL (4.30-5.70) Hemoglobin 7.1 g/dL (13.0-17.5) Hematocrit 21.6 % (39.0-53.0) Mean Corpuscular Volume 75 fL (79-100) Mean Corpuscular Hemoglobin 25 pg (25-35) Mean Corpuscular Hemoglobin Concent 33 g/dL (31-37) Red Cell Distribution Width 30.3 % (11.5-14.5) Platelet Count 179 x10^3/uL (140-400) Sodium Level 128 mmol/L (136-145) Potassium Level 3.0 mmol/L (3.5-5.1) Chloride Level 98 mmol/L (98-107) Carbon Dioxide Level 25 mmol/L (21-32) Anion Gap 5 (6-14) Blood Urea Nitrogen 22 mg/dL (8-26) Creatinine 0.6 mg/dL (0.7-1.3) Estimated GFR (Cockcroft-Gault) 132.8 Glucose Level 91 mg/dL (70-99) Calcium Level 5.9 mg/dL (8.5-10.1) Phosphorus Level 1.6 mg/dL (2.6-4.7) Magnesium Level 1.5 mg/dL (1.8-2.4) Albumin 0.8 g/dL (3.4-5.0) O2 Saturation 97 % (92-99) Arterial Blood pH 7.48 (7.35-7.45) Arterial Blood pCO2 at Patient Temp 30 mmHg (35-46) Arterial Blood pO2 at Patient Temp 109 mmHg (65-108) Arterial Blood HCO3 22 mmol/L (21-28) Arterial Blood Base Excess -2 mmol/L (-3-3) FiO2 40 Assessment and Plan Assessmemt and Plan Problems Medical Problems: (1) Anemia Status: Acute (2) Colonic mass Status: Acute (3) Fatigue Status: Acute (4) Hypocalcemia Status: Acute (5) Nausea & vomiting Status: Acute (6) SBO (small bowel obstruction) Status: Acute Comment Review of Relevant I have reviewed the following items radhames (where applicable) has been applied. Labs Laboratory Tests Test 03/06/20 11:50 03/07/20 05:50 03/07/20 08:00 03/07/20 09:00 Urine Sodium <20 mmol/L (Not Estab.) Urine Potassium 72.2 mmol/L (Not Estab.) Urine Chloride <20 mmol/L (Not Estab.) Sodium Level 128 mmol/L (136-145) Potassium Level 3.7 mmol/L (3.5-5.1) Chloride Level 98 mmol/L (98-107) Carbon Dioxide Level 22 mmol/L (21-32) Anion Gap 8 (6-14) Blood Urea Nitrogen 29 mg/dL (8-26) Creatinine 0.8 mg/dL (0.7-1.3) Estimated GFR (Cockcroft-Gault) 95.3 BUN/Creatinine Ratio 36 (6-20) Glucose Level 131 mg/dL (70-99) Calcium Level 6.2 mg/dL (8.5-10.1) Total Bilirubin 0.3 mg/dL (0.2-1.0) Aspartate Amino Transf (AST/SGOT) 19 U/L (15-37) Alanine Aminotransferase (ALT/SGPT) 17 U/L (16-63) Alkaline Phosphatase 97 U/L (46-116) Total Protein 3.3 g/dL (6.4-8.2) Albumin 0.9 g/dL (3.4-5.0) Albumin/Globulin Ratio 0.4 (1.0-1.7) O2 Saturation 98 % (92-99) Arterial Blood pH 7.47 (7.35-7.45) Arterial Blood pCO2 at Patient Temp 28 mmHg (35-46) Arterial Blood pO2 at Patient Temp 140 mmHg (65-108) Arterial Blood HCO3 20 mmol/L (21-28) Arterial Blood Base Excess -3 mmol/L (-3-3) FiO2 40 White Blood Count 14.3 x10^3/uL (4.0-11.0) Red Blood Count 2.99 x10^6/uL (4.30-5.70) Hemoglobin 6.8 g/dL (13.0-17.5) Hematocrit 21.7 % (39.0-53.0) Mean Corpuscular Volume 73 fL (79-100) Mean Corpuscular Hemoglobin 23 pg (25-35) Mean Corpuscular Hemoglobin Concent 31 g/dL (31-37) Red Cell Distribution Width 30.6 % (11.5-14.5) Platelet Count 207 x10^3/uL (140-400) Neutrophils (%) (Auto) 89 % (31-73) Lymphocytes (%) (Auto) 4 % (24-48) Monocytes (%) (Auto) 7 % (0-9) Eosinophils (%) (Auto) 0 % (0-3) Basophils (%) (Auto) 0 % (0-3) Neutrophils # (Auto) 12.7 x10^3/uL (1.8-7.7) Lymphocytes # (Auto) 0.6 x10^3/uL (1.0-4.8) Monocytes # (Auto) 1.0 x10^3/uL (0.0-1.1) Eosinophils # (Auto) 0.0 x10^3/uL (0.0-0.7) Basophils # (Auto) 0.0 x10^3/uL (0.0-0.2) Test 03/08/20 05:40 03/08/20 08:00 White Blood Count 10.7 x10^3/uL (4.0-11.0) Red Blood Count 2.87 x10^6/uL (4.30-5.70) Hemoglobin 7.1 g/dL (13.0-17.5) Hematocrit 21.6 % (39.0-53.0) Mean Corpuscular Volume 75 fL (79-100) Mean Corpuscular Hemoglobin 25 pg (25-35) Mean Corpuscular Hemoglobin Concent 33 g/dL (31-37) Red Cell Distribution Width 30.3 % (11.5-14.5) Platelet Count 179 x10^3/uL (140-400) Sodium Level 128 mmol/L (136-145) Potassium Level 3.0 mmol/L (3.5-5.1) Chloride Level 98 mmol/L (98-107) Carbon Dioxide Level 25 mmol/L (21-32) Anion Gap 5 (6-14) Blood Urea Nitrogen 22 mg/dL (8-26) Creatinine 0.6 mg/dL (0.7-1.3) Estimated GFR (Cockcroft-Gault) 132.8 Glucose Level 91 mg/dL (70-99) Calcium Level 5.9 mg/dL (8.5-10.1) Phosphorus Level 1.6 mg/dL (2.6-4.7) Magnesium Level 1.5 mg/dL (1.8-2.4) Albumin 0.8 g/dL (3.4-5.0) O2 Saturation 97 % (92-99) Arterial Blood pH 7.48 (7.35-7.45) Arterial Blood pCO2 at Patient Temp 30 mmHg (35-46) Arterial Blood pO2 at Patient Temp 109 mmHg (65-108) Arterial Blood HCO3 22 mmol/L (21-28) Arterial Blood Base Excess -2 mmol/L (-3-3) FiO2 40 Laboratory Tests Test 03/08/20 05:40 03/08/20 08:00 White Blood Count 10.7 x10^3/uL (4.0-11.0) Red Blood Count 2.87 x10^6/uL (4.30-5.70) Hemoglobin 7.1 g/dL (13.0-17.5) Hematocrit 21.6 % (39.0-53.0) Mean Corpuscular Volume 75 fL (79-100) Mean Corpuscular Hemoglobin 25 pg (25-35) Mean Corpuscular Hemoglobin Concent 33 g/dL (31-37) Red Cell Distribution Width 30.3 % (11.5-14.5) Platelet Count 179 x10^3/uL (140-400) Sodium Level 128 mmol/L (136-145) Potassium Level 3.0 mmol/L (3.5-5.1) Chloride Level 98 mmol/L (98-107) Carbon Dioxide Level 25 mmol/L (21-32) Anion Gap 5 (6-14) Blood Urea Nitrogen 22 mg/dL (8-26) Creatinine 0.6 mg/dL (0.7-1.3) Estimated GFR (Cockcroft-Gault) 132.8 Glucose Level 91 mg/dL (70-99) Calcium Level 5.9 mg/dL (8.5-10.1) Phosphorus Level 1.6 mg/dL (2.6-4.7) Magnesium Level 1.5 mg/dL (1.8-2.4) Albumin 0.8 g/dL (3.4-5.0) O2 Saturation 97 % (92-99) Arterial Blood pH 7.48 (7.35-7.45) Arterial Blood pCO2 at Patient Temp 30 mmHg (35-46) Arterial Blood pO2 at Patient Temp 109 mmHg (65-108) Arterial Blood HCO3 22 mmol/L (21-28) Arterial Blood Base Excess -2 mmol/L (-3-3) FiO2 40 Microbiology 03/02/20 Urine Culture - Final, Complete Medications Current Medications Sodium Chloride 1,000 ml @ 1,000 mls/hr 1X ONCE IV Last administered on 03/02/20at 17:05; Start 03/02/20 at 16:45; Stop 03/02/20 at 17:44; Status DC Calcium Gluconate (Calcium Gluconate) 1,000 mg 1X ONCE IVP Last administered on 03/02/20at 18:21; Start 03/02/20 at 18:15; Stop 03/02/20 at 18:18; Status DC Iohexol (Omnipaque 300 Mg/ml) 75 ml 1X ONCE IV Last administered on 03/02/20at 18:34; Start 03/02/20 at 18:30; Stop 03/02/20 at 18:31; Status DC Pantoprazole Sodium (PROTONIX VIAL for IV PUSH) 40 mg 1X ONCE IVP Last administered on 03/02/20at 18:41; Start 03/02/20 at 18:45; Stop 03/02/20 at 18:46; Status DC Sodium Chloride 1,000 ml @ 100 mls/hr 1X ONCE IV Last administered on 03/02/20at 19:04; Start 03/02/20 at 18:45; Stop 03/03/20 at 04:44; Status DC Enoxaparin Sodium (Lovenox Per Pharmacy Prophylaxis Dosing) 1 each PRN DAILY PRN MC SEE COMMENTS; Start 03/02/20 at 20:30; Status Cancel Enoxaparin Sodium (Lovenox 40mg Syringe) 40 mg Q24H SQ Last administered on 03/02/20at 23:48; Start 03/02/20 at 21:00; Stop 03/03/20 at 08:48; Status DC Tamsulosin HCl (Flomax) 0.4 mg HS PO Last administered on 03/04/20at 21:03; Start 03/02/20 at 23:45 Sodium Chloride 1,000 ml @ 100 mls/hr Q10H IV Last administered on 03/03/20at 11:07; Start 03/03/20 at 10:00; Stop 03/03/20 at 14:58; Status DC Ondansetron HCl (Zofran) 4 mg PRN Q4HRS PRN IV NAUSEA/VOMITING Last administered on 03/04/20at 22:31; Start 03/03/20 at 09:45; Stop 03/05/20 at 16:15; Status DC Acetaminophen (Tylenol Supp) 650 mg PRN Q4HRS PRN IN TEMP OVER 100.4F OR MILD PAIN; Start 03/03/20 at 09:45 Polyethylene Glycol (miraLAX PACKET) 17 gm DAILY PO Last administered on 03/04/20at 09:21; Start 03/03/20 at 10:00; Stop 03/06/20 at 10:25; Status DC Bisacodyl (Dulcolax Supp) 10 mg PRN DAILY PRN IN CONSTIPATION; Start 03/03/20 at 09:45; Stop 03/06/20 at 10:25; Status DC Bisacodyl (Dulcolax Tab) 10 mg PRN DAILY PRN PO CONSTIPATION Last administered on 03/03/20at 13:47; Start 03/03/20 at 09:45; Stop 03/06/20 at 10:25; Status DC Psyllium Hydrophilic Mucilloid (Metamucil Fiber Packet) 1 pkt QHS PO Last administered on 03/04/20at 21:03; Start 03/03/20 at 21:00; Stop 03/06/20 at 10:25; Status DC Polyethylene Glycol (miraLAX PACKET) 17 gm QHS PO Last administered on 03/04/20at 21:03; Start 03/03/20 at 21:00; Stop 03/06/20 at 10:25; Status DC Docusate Sodium (Colace) 100 mg DAILY PO Last administered on 03/04/20at 09:21; Start 03/03/20 at 12:00; Stop 03/06/20 at 10:25; Status DC Amino Acids/ Glycerin/ Electrolytes 1,000 ml @ 80 mls/hr [id number] IV Last administered on 03/07/20at 02:41; Start 03/03/20 at 15:00; Stop 03/07/20 at 13:22; Status DC Furosemide (Lasix) 40 mg 1X ONCE IVP Last administered on 03/03/20at 16:48; Start 03/03/20 at 15:00; Stop 03/03/20 at 15:01; Status DC Iohexol (Omnipaque 300 Mg/ml) 75 ml 1X ONCE IV Last administered on 03/03/20at 16:33; Start 03/03/20 at 16:15; Stop 03/03/20 at 16:16; Status DC Info (CONTRAST GIVEN -- Rx MONITORING) 1 each PRN DAILY PRN MC SEE COMMENTS; Start 03/03/20 at 16:15; Stop 03/05/20 at 16:15; Status DC Bisacodyl (Dulcolax Supp) 10 mg 1X ONCE IN Last administered on 03/04/20at 12:18; Start 03/04/20 at 10:00; Stop 03/04/20 at 10:05; Status DC Cefoxitin Sodium (Mefoxin) 2 gm 1X PREOP IVP Last administered on 03/05/20at 13:09; Start 03/05/20 at 10:00 Lidocaine (Lidoderm) 1 patch DAILY TD ; Start 03/04/20 at 16:30; Status Cancel Miscellaneous (Lidoderm Patch Removal) 1 ea QHS MC ; Start 03/04/20 at 21:00; Status Cancel Ondansetron HCl (Zofran) 4 mg PRN Q6HRS PRN IVP NAUSEA/VOMITING; Start 03/05/20 at 07:15; Stop 03/05/20 at 20:00; Status DC Fentanyl Citrate (Fentanyl 2ml Vial) 25 mcg PRN Q5MIN PRN IVP MILD PAIN 1-3; Start 03/05/20 at 07:15; Stop 03/05/20 at 20:00; Status DC Fentanyl Citrate (Fentanyl 2ml Vial) 50 mcg PRN Q5MIN PRN IVP MODERATE TO SEVERE PAIN; Start 03/05/20 at 07:15; Stop 03/05/20 at 20:00; Status DC Morphine Sulfate (Morphine Sulfate) 1 mg PRN Q10MIN PRN IVP SEVERE PAIN 7-10; Start 03/05/20 at 07:15; Stop 03/05/20 at 20:00; Status DC Ringer's Solution 1,000 ml @ 30 mls/hr Q24H IV Last administered on 03/05/20at 09:59; Start 03/05/20 at 07:05; Stop 03/05/20 at 19:04; Status DC Lidocaine HCl (Xylocaine-Mpf 1% 2ml Vial) 2 ml 1X PRN PRN ID IV START; Start 03/05/20 at 07:15; Stop 03/05/20 at 20:00; Status DC Hydromorphone HCl (Dilaudid) 0.5 mg PRN Q10MIN PRN IVP SEV PAIN, Second choice; Start 03/05/20 at 07:15; Stop 03/05/20 at 20:00; Status DC Prochlorperazine Edisylate (Compazine) 5 mg PACU PRN PRN IVP NAUSEA, MRX1; Start 03/05/20 at 07:15; Stop 03/06/20 at 07:14; Status DC Pantoprazole Sodium (PROTONIX VIAL for IV PUSH) 40 mg DAILYAC IVP Last administered on 03/08/20at 07:59; Start 03/05/20 at 10:30 Propofol (Diprivan) 200 mg STK-MED ONCE IV ; Start 03/05/20 at 10:23; Stop 03/05/20 at 10:23; Status DC Lidocaine HCl (Lidocaine Pf 2% Vial) 5 ml STK-MED ONCE .ROUTE ; Start 03/05/20 at 10:23; Stop 03/05/20 at 10:23; Status DC Ondansetron HCl (Zofran) 4 mg STK-MED ONCE .ROUTE ; Start 03/05/20 at 10:23; Stop 03/05/20 at 10:23; Status DC Dexamethasone Sodium Phosphate (Decadron) 4 mg STK-MED ONCE .ROUTE ; Start 03/05/20 at 10:23; Stop 03/05/20 at 10:23; Status DC Succinylcholine Chloride (Anectine) 200 mg STK-MED ONCE .ROUTE ; Start 03/05/20 at 10:23; Stop 03/05/20 at 10:23; Status DC Rocuronium [place] (Zemuron) 50 mg STK-MED ONCE .ROUTE ; Start 03/05/20 at 10:24; Stop 03/05/20 at 10:24; Status DC Fentanyl Citrate (Fentanyl 2ml Vial) 100 mcg STK-MED ONCE .ROUTE ; Start at 10:24; Stop 03/05/20 at 10:24; Status DC Iohexol (Omnipaque 300 Mg/ml) 50 ml STK-MED ONCE .ROUTE Last administered on at 11:43; Start 03/05/20 at 10:41; Stop 03/05/20 at 10:41; Status DC Bupivacaine HCl/ Epinephrine Bitart (Sensorcain-Epi 0.5%-1:107701 Mpf) 30 ml STK-MED ONCE .ROUTE ; Start 03/05/20 at 10:42; Stop 03/05/20 at 10:42; Status DC Phenylephrine HCl (PHENYLEPHRINE in 0.9% NACL PF) 1 mg STK-MED ONCE IV ; Start 03/05/20 at 12:13; Stop 03/05/20 at 12:14; Status DC Ephedrine Sulfate (ePHEDrine PF IN SALINE SYRINGE) 50 mg STK-MED ONCE IV ; Start 03/05/20 at 12:13; Stop 03/05/20 at 12:14; Status DC Phenylephrine HCl (Devin-Synephrine Inj) 10 mg STK-MED ONCE .ROUTE ; Start 03/05/20 at 12:15; Stop 03/05/20 at 12:15; Status DC Rocuronium [place] (Zemuron) 50 mg STK-MED ONCE .ROUTE ; Start 03/05/20 at 12:27; Stop 03/05/20 at 12:27; Status DC Cefoxitin Sodium (Mefoxin) 1 gm STK-MED ONCE IVP ; Start 03/05/20 at 12:57; Stop 03/05/20 at 12:57; Status DC Albumin Human 500 ml @ As Directed STK-MED ONCE IV ; Start 03/05/20 at 13:08; Stop 03/05/20 at 13:08; Status DC Albumin Human 500 ml @ As Directed STK-MED ONCE IV ; Start 03/05/20 at 13:13; Stop 03/05/20 at 13:14; Status DC Phenylephrine HCl (Devin-Synephrine Inj) 10 mg STK-MED ONCE .ROUTE ; Start 03/05/20 at 13:35; Stop 03/05/20 at 13:35; Status DC Phenylephrine HCl (Devin-Synephrine Inj) 10 mg STK-MED ONCE .ROUTE ; Start 03/05/20 at 13:48; Stop 03/05/20 at 13:49; Status DC Sevoflurane (Ultane) 90 ml STK-MED ONCE IH ; Start 03/05/20 at 14:30; Stop 03/05/20 at 14:30; Status DC Phenylephrine HCl (Devin-Synephrine Inj) 10 mg STK-MED ONCE .ROUTE ; Start 03/05/20 at 14:35; Stop 03/05/20 at 14:36; Status DC Midazolam HCl 100 mg/Sodium Chloride 100 ml @ 1 mls/hr CONT PRN IV SEE I/O RECORD Last administered on 03/07/20at 21:33; Start 03/05/20 at 15:15 Fentanyl Citrate 30 ml @ 2.5 mls/hr CONT PRN PRN IV PER PROTOCOL Last admin istered on 03/08/20at 06:43; Start 03/05/20 at 15:15 Naloxone HCl (Narcan) 0.4 mg PRN Q2MIN PRN IV SEE INSTRUCTIONS; Start 03/05/20 at 15:15; Stop 03/06/20 at 09:45; Status DC Sodium Chloride 1,000 ml @ 25 mls/hr Q24H IV ; Start 03/05/20 at 15:13; Stop at 14:24; Status DC Norepinephrine Bitartrate 8 mg/ Dextrose 258 ml @ 15.287 mls/ hr CONT PRN IV PER PROTOCOL Last administered on 03/07/20at 21:33; Start 03/05/20 at 15:30 Enoxaparin Sodium (Lovenox 40mg Syringe) 40 mg Q24H SQ Last administered on 03/07/20at 08:55; Start 03/06/20 at 08:00 Sodium Chloride (Normal Saline Flush) 3 ml QSHIFT PRN IV AFTER MEDS AND BLOOD DRAWS; Start 03/05/20 at 16:15 Ringer's Solution 1,000 ml @ 100 mls/hr Q10H IV Last administered on 03/07/20at 23:16; Start 03/05/20 at 16:09 Naloxone HCl (Narcan) 0.4 mg PRN Q2MIN PRN IV SEE INSTRUCTIONS; Start 03/05/20 at 16:15 Sodium Chloride 1,000 ml @ 25 mls/hr Q24H IV ; Start 03/05/20 at 16:09; Stop 03/06/20 at 14:24; Status DC Morphine Sulfate 30 ml @ 0 mls/hr CONT PRN PRN IV PER PROTOCOL; Start 03/05/20 at 16:15; Stop 03/06/20 at 09:48; Status DC Ondansetron HCl (Zofran) 4 mg PRN Q6HRS PRN IVP NAUESA, 1ST CHOICE; Start 03/05/20 at 16:15 Piperacillin Sod/ Tazobactam Sod 3.375 gm/Sodium Chloride 50 ml @ 100 mls/hr Q6HRS IV Last administered on 03/08/20at 05:39; Start 03/05/20 at 17:00 Ringer's Solution 1,000 ml @ 999 mls/hr 1X ONCE IV Last administered on 03/05/20at 20:59; Start 03/05/20 at 20:00; Stop 03/05/20 at 21:00; Status DC Vasopressin 20 unit/Dextrose 101 ml @ 12 mls/hr CONT PRN IV SEE I/O RECORD Last administered on 03/08/20at 06:43; Start 03/05/20 at 20:00 Ringer's Solution 1,000 ml @ 999 mls/hr 1X ONCE IV Last administered on 03/06/20at 01:07; Start 03/06/20 at 01:00; Stop 03/06/20 at 02:00; Status DC Ringer's Solution 1,000 ml @ 999 mls/hr 1X ONCE IV Last administered on 03/06/20at 05:18; Start 03/06/20 at 05:00; Stop 03/06/20 at 06:00; Status DC Ringer's Solution 1,000 ml @ 999 mls/hr 1X ONCE IV Last administered on 03/06/20at 09:54; Start 03/06/20 at 09:45; Stop 03/06/20 at 10:45; Status DC Ringer's Solution 1,000 ml @ 999 mls/hr 1X ONCE IV Last administered on 03/06/20at 13:40; Start 03/06/20 at 13:45; Stop 03/06/20 at 14:45; Status DC Ringer's Solution 1,000 ml @ 999 mls/hr 1X ONCE IV Last administered on 03/06/20at 18:43; Start 03/06/20 at 18:15; Stop 03/06/20 at 19:15; Status DC Sodium Chloride 200 ml @ 50 mls/hr 1X ONCE IV Last administered on 03/07/20at 13:49; Start 03/07/20 at 13:30; Stop 03/07/20 at 17:29; Status DC Potassium Phosphate 13.6 mmol/Sodium Chloride 254.5333 ml @ 62.5 mls/hr Q4H IV Last administered on 03/08/20at 08:01; Start 03/08/20 at 08:30; Stop 03/08/20 at 20:29 Magnesium Sulfate 50 ml @ 25 mls/hr 1X ONCE IV Last administered on 03/08/20at 08:00; Start 03/08/20 at 08:00; Stop 03/08/20 at 09:59; Status DC Sodium Chloride 300 ml @ 50 mls/hr 1X ONCE IV Last administered on 03/08/20at 08:00; Start 03/08/20 at 08:00; Stop 03/08/20 at 13:59 Active Scripts Active Reported Flomax (Tamsulosin Hcl) 0.4 Mg Cap.er.24h 1 Cap PO QHS Vitals/I & O Vital Sign - Last 24 Hours 03/07/20 03/07/20 03/07/20 03/07/20 10:33 11:00 12:00 12:00 Pulse 88 Resp 16 16 B/P (MAP) 135/74 (94) Pulse Ox 100 100 O2 Delivery Ventilator Ventilator Mechanical Ventilator 03/07/20 03/07/20 03/07/20 03/07/20 12:00 12:07 12:18 12:33 Temp 97.9 98.0 97.9 97.9 98.0 97.9 Pulse 88 84 82 Resp 16 16 16 B/P (MAP) 124/68 (86) 123/68 138/76 Pulse Ox 100 100 O2 Delivery Ventilator Ventilator 03/07/20 03/07/20 03/07/20 03/07/20 13:00 13:15 13:30 13:38 Temp 98.5 98.5 Pulse 80 114 98 97 Resp 16 16 B/P (MAP) 154/82 (106) 140/80 (100) 138/78 (98) 132/76 Pulse Ox 100 O2 Delivery Ventilator 03/07/20 03/07/20 03/07/20 03/07/20 13:45 13:52 14:00 14:34 Pulse 92 97 Resp 16 16 B/P (MAP) 138/76 (96) 94/50 (65) Pulse Ox 100 100 100 O2 Delivery Ventilator Ventilator BiPAP/CPAP 03/07/20 03/07/20 03/07/20 03/07/20 15:00 15:15 15:25 15:30 Pulse 84 86 86 Resp 16 16 B/P (MAP) 112/64 (80) 116/66 (83) 122/68 (86) Pulse Ox 100 100 O2 Delivery Ventilator Ventilator 03/07/20 03/07/20 03/07/20 03/07/20 15:36 15:42 15:42 15:45 Pulse 78 B/P (MAP) 144/78 (100) O2 Delivery Mechanical Ventilator 03/07/20 03/07/20 03/07/20 03/07/20 15:45 16:00 16:00 17:00 Temp 98.4 98.4 Pulse 72 76 Resp 16 16 B/P (MAP) 99/57 (71) 111/55 (73) Pulse Ox 100 100 100 O2 Delivery Ventilator Ventilator Ventilator 03/07/20 03/07/20 03/07/20 03/07/20 18:00 19:00 19:18 19:48 Pulse 77 72 Resp 16 16 16 16 B/P (MAP) 102/58 (73) 125/68 (87) Pulse Ox 100 100 100 100 O2 Delivery Ventilator Ventilator Ventilator 03/07/20 03/07/20 03/07/20 03/07/20 20:00 20:00 20:00 20:20 Temp 97.1 97.1 Pulse 71 71 Resp 16 B/P (MAP) 127/69 (88) 127/69 (88) Pulse Ox 100 100 O2 Delivery Mechanical Ventilator Ventilator Ventilator 03/07/20 03/07/20 03/07/20 03/07/20 21:00 22:00 23:00 23:01 Pulse 77 79 87 Resp 16 16 16 B/P (MAP) 124/69 (87) 125/70 (88) 125/64 (84) Pulse Ox 100 100 100 100 O2 Delivery Ventilator Ventilator Ventilator Ventilator 03/08/20 03/08/20 03/08/20 03/08/20 00:00 00:00 00:01 01:00 Temp 97.7 97.7 Pulse 71 68 69 Resp 16 16 B/P (MAP) 127/69 (88) 102/55 (71) 114/60 (78) Pulse Ox 100 100 O2 Delivery Mechanical Ventilator Ventilator Ventilator 03/08/20 03/08/20 03/08/20 03/08/20 01:02 01:09 01:39 02:00 Pulse 61 Resp 16 16 16 B/P (MAP) 117/59 (78) Pulse Ox 100 100 100 100 O2 Delivery Ventilator Ventilator 03/08/20 03/08/20 03/08/20 03/08/20 03:00 04:00 04:00 04:00 Temp 96.6 96.6 Pulse 57 70 Resp 16 16 B/P (MAP) 93/49 (64) 112/62 (79) Pulse Ox 100 100 O2 Delivery Ventilator Mechanical Ventilator Ventilator 03/08/20 03/08/20 03/08/20 03/08/20 04:30 05:00 06:00 06:43 Pulse 77 69 Resp 16 16 20 B/P (MAP) 116/62 (80) 106/56 (73) Pulse Ox 100 100 100 100 O2 Delivery Ventilator Ventilator Ventilator 03/08/20 03/08/20 03/08/20 03/08/20 07:00 07:33 07:58 08:00 Temp 97.7 97.7 Pulse 72 76 Resp 16 16 16 B/P (MAP) 104/56 (72) 130/66 (87) Pulse Ox 100 100 100 100 O2 Delivery Ventilator Ventilator Ventilator Ventilator 03/08/20 03/08/20 03/08/20 03/08/20 08:00 08:00 09:00 09:39 Pulse 85 Resp 16 B/P (MAP) 102/58 (73) Pulse Ox 100 100 O2 Delivery Mechanical Ventilator Ventilator Ventilator Intake and Output 03/07/20 03/07/20 03/08/20 15:00 23:00 07:00 Intake Total 905 ml 1672.81 ml Output Total 535 ml 665 ml 340 ml Balance 370 ml 1007.81 ml -340 ml Nutrition Consultation Dietary Evaluation: Recommendations by RD: Dietary education by RD, Increase Calorie Intake, PPN/TPN Comments: If continued aggressive care desired, recommend TPN per followin g dextrose, 95 g AA, 20 g lipids Expected Outcomes/Goals: PPN for short-term, non-enteral nutrition needs at this time - met, new goal established New goal 03/07: TPN for nutrition needs if continued aggressive care desired Malnutrition Findings: Food and Nutrition Intake (Mod: <75% est energy req 7days Weight Status: Appropriate Justicifation of Admission Dx: Justifications for Admission: Justification of Admission Dx: Yes MARLYS ENCARNACION MD Mar 08, 2020 10:09
--- NOTE | 2020-03-08 10:52 | PDOC ---
Objective: Objective: D/w nurse - remains on pressors (though less). Vital Signs: Vital Signs Date Time Temp Pulse Resp B/P (MAP) Pulse Ox O2 Delivery O2 Flow Rate FiO2 03/08/20 09:39 100 Ventilator 03/08/20 09:00 85 16 102/58 (73) 03/08/20 08:00 97.7 97.7 Labs: Laboratory Tests Test 03/08/20 05:40 03/08/20 08:00 White Blood Count 10.7 x10^3/uL Red Blood Count 2.87 x10^6/uL Hemoglobin 7.1 g/dL Hematocrit 21.6 % Mean Corpuscular Volume 75 fL Mean Corpuscular Hemoglobin 25 pg Mean Corpuscular Hemoglobin Concent 33 g/dL Red Cell Distribution Width 30.3 % Platelet Count 179 x10^3/uL Sodium Level 128 mmol/L Potassium Level 3.0 mmol/L Chloride Level 98 mmol/L Carbon Dioxide Level 25 mmol/L Anion Gap 5 Blood Urea Nitrogen 22 mg/dL Creatinine 0.6 mg/dL Estimated GFR (Cockcroft-Gault) 132.8 Glucose Level 91 mg/dL Calcium Level 5.9 mg/dL Phosphorus Level 1.6 mg/dL Magnesium Level 1.5 mg/dL Albumin 0.8 g/dL O2 Saturation 97 % Arterial Blood pH 7.48 Arterial Blood pCO2 at Patient Temp 30 mmHg Arterial Blood pO2 at Patient Temp 109 mmHg Arterial Blood HCO3 22 mmol/L Arterial Blood Base Excess -2 mmol/L FiO2 40 Imaging: CXR 03/08 pending PE: GEN: intubated LUNGS: clear/vent HEART: RRR ABD: BS to right, seems uncomfortable NEURO/PSYCH: sedated - moves arms/hands when abdomen touched A/P: Colon cancer s/p right colon resection, partial resection of duodenum, duodenostomy tube, cholecystectomy, ghost ileostomy - path pending ACD - better after transfusion Hypocalcemia, hyponatremia -- Continue support per GI. Justicifation of Admission Dx: Justifications for Admission: Justification of Admission Dx: Yes LONG RIOS Mar 08, 2020 10:52
[2020-03-08] MEDS: TPN PER PHARMACY MC PRN ×2 (11:12→11:21)
[2020-03-08] MEDS: IV RINGERS,LACTATED 1000ML 1,000 ML IV SCH ×2 (11:19→14:32)
[2020-03-08] MEDS: NOREPINEPHRINE VIAL 8 MG in IV DEXTROSE 5% 250 ML IV PRN (11:23)
[2020-03-08] MEDS: NORMAL SALINE IV PRN ×2 (11:32→20:03)
[2020-03-08] MEDS: MIDAZOLAM HCL IV PRN ×2 (11:32→20:03)
--- NOTE | 2020-03-08 11:38 | RAD ---
AP portable chest radiograph 03/08/2020 Clinical History: Respiratory failure. Two AP supine portable digital radiographs of the chest were obtained. Comparison study is dated 03/05/2020. The ET tube and NG tube are unchanged in position. A left arm PICC has been placed. The tip of this catheter extends to overlie the SVC/right atrial junction. The cardiac silhouette is normal in size. The thoracic aorta is tortuous. Atherosclerotic calcification of the thoracic aorta is seen. Left lower lobe atelectasis and/or infiltrate is unchanged. There may be small bilateral pleural effusions, left greater than right. No pneumothorax is noted. The osseous structures are unchanged. Impression: 1. Interval placement of a left arm PICC. The tip of this catheter extends to overlie the SVC/right atrial junction. 2. Left lower lobe atelectasis and/ or infiltrate, unchanged. Electronically signed by: Bipin Aiken MD (03/08/2020 11:35 AM) [id number]
--- NOTE | 2020-03-08 11:43 | NUR ---
Pharmacy TPN Dosing Note S: FABIANO HELLER is a 69 year old M Currently receiving TPN started 03/08/20 B:Pertinent PMH: NPO/SBO Height: 6 feet, 3 inches Weight: 83.7 kg Current diet: PPN LABS: Sodium: 128 Potassium: 3.0 Chloride: 98 Calcium: 5.9 Corrected Calcium: 8.46 Magnesium: 1.5 CO2: 25 SCr: 0.6 Glucose: 91 Albumin: 0.8 AST: ALT: TPN FORMULA: TPN TYPE: AMINO ACIDS: 95 gm DEXTROSE: 225 gm LIPIDS: 20 gm SODIUM CHLORIDE: 100 mEq SODIUM ACETATE: mEq SODIUM PHOSPHATE: mmol POTASSIUM CHLORIDE: 50 mEq POTASSIUM ACETATE: mEq POTASSIUM PHOSPHATE: 18 mmol MAGNESIUM: 15 mEq CALCIUM: 10 mEq INSULIN: units MULTIPLE VITAMIN: 10 ml TRACE ELEMENTS: 1 ml(s) TPN PLAN: TPN WITH AA 95GM/DEX 225GM/LIPID 20 GM R: Begin TPN AT 80 ML/HR Will monitor electrolytes, glucose, and tolerance to TPN. NOMI LANGLEY [facility], 03/08/20 1148
[2020-03-08] MEDS ORDERED: POTASSIUM CHLORIDE 20MEQ 100 ML IV ONE (16:00)
--- NOTE | 2020-03-08 16:06 | PATHOLOGY ---
[facility] Accession Number: [id number] . 01 Material submitted: . PART A: colon - RIGHT COLON. Modifiers: right PART B: gallbladder - GALLBLADDER AND CONTENTS PART C: abdomen - RIGHT UPPER QUADRANT. Modifiers: right, upper . 01 Clinical history: . Obstructing colon mass, SBO, N/V, fatigue, hypocalcemia . 02 Frozen section diagnosis: . INTRAOPERATIVE CONSULTATION WITH GROSS IMPRESSION: (Jorge Luis Morton M.D.) . Distal ileum, cecum and attached appendix, and proximal ascending colon with attached mesocolon and omental apron: - Large circumferential ulcerated tumor mass of cecum, proximal ascending colon and ileocecal valve - proximal ileal and distal ascending colon margins of resection negative for tumor. - Focal tumor perforation of posterior aspect of cecum and proximal ascending colon. (JPM/db; 03/05/2020) . Intraoperative consultation performed at [facility], [address] [place] [address], [place] [id number]. . GROSS DESCRIPTION: The specimen is received fresh and is designated "right colon". This consists of a short segment of distal ileum, cecum with attached appendix, and ascending colon with attached mesocolon and large portion of omental apron. This segment is stapled closed at both ends. The terminal ileum measures 5.5 cm in length and up to 4.5 cm in diameter. The cecum and ascending colon measure 19.0 cm in length. The cecum and proximal ascending colon measure up to 10 cm in diameter, corresponding to a large palpable tumor mass within the colon. The distal ascending colon measures 2.6 cm in diameter. The attached omentum measures 20.0 x 17.0 cm. The mesocolon measures up to 5.0 cm in depth. The appendix is pink-red and erythematous and measures 4.5 cm in length and 1.0 cm in diameter. The serosa is pink-vallejo and focally erythematous and contains a few adhesions. There is a defect of the posterior aspect of the cecum and proximal ascending colon which according to the surgeon corresponds to an area of tumor perforation in the region of the duodenum and right kidney. The segment is opened longitudinally. The ileal mucosa is dark brown and transversely folded. There is a large circumferential pink to reddish-vallejo, ulcerated tumor mass involving the cecum, proximal ascending colon, and ileocecal valve. The tumor mass measures up to 12.5 cm in length. The tumor focally bridges the lumen of the proximal ascending colon. The tumor in the area of opening obliterates the muscular wall. The mucosa distal to the tumor of the ascending colon is glistening pink-vallejo and transversely folded. There are no additional polyps or tumor masses. There are no obvious tumor masses within the attached omentum. The specimen is fixed in formalin prior to additional sectioning. (ALTAF/juan jose/marilin; 03/05/2020) MILO/MERVIN . 02 Diagnosis: A. 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 - Lymphovascular tumor invasion present. - Metastatic carcinoma involving 1 of 14 mesocolic lymph nodes. - Tumor involvement of radial margin of posterior aspect of cecum and proximal ascending colon. - Proximal (distal ileum) and distal (ascending colon) margins of resection negative for tumor. - Hypertrophy of muscular wall of appendix with focal serosal lymphovascular tumor invasion of proximal appendix. - Omentum negative for tumor. - Serosal adhesions of colon and appendix, focal. . B. Gallbladder, open cholecystectomy: - Polypoid cholesterolosis. - Chronic cholecystitis. . C. Tissue designated "right upper quadrant": - Segments of tumor showing invasive colorectal adenocarcinoma with prominent mucinous component, moderately differentiated. . (JPAlec:kaila; 03/07/2020) . Surgical Pathology Cancer Case Summary Protocol posting date: February 2017 COLON AND RECTUM: Resection, Including Transanal Disk Excision of Rectal Neoplasms Procedure ___ Right colectomy Tumor Site ___ Cecum ___ Ileocecal valve ___ Right (ascending) colon Tumor Size Greatest dimension: 12.5 cm Macroscopic Tumor Perforation ___ Present Histologic Type ___ Adenocarcinoma with prominent mucinous component and with focal poorly differentiated areas Histologic Grade ___ Other: Moderately to focally poorly differentiated Tumor Extension ___ Tumor invades through the muscularis propria into pericolorectal tissue Margins Proximal Margin ___ Uninvolved by invasive carcinoma + Distance of tumor from margin: 5.4 cm Distal Margin ___ Uninvolved by invasive carcinoma + Distance of tumor from margin: 11.2 cm ___ Involved by invasive carcinoma Radial or Mesenteric Margin ___ Involved by invasive carcinoma Lymphovascular Invasion ___ Present Perineural Invasion ___ Not identified + Type of Polyp in Which Invasive Carcinoma Arose + ___ Tubulovillous adenoma Tumor Deposits ___ Not identified Regional Lymph Nodes Number of Lymph Nodes Involved: 1 Number of Lymph Nodes Examined: 14 Pathologic Stage Classification (pTNM, AJCC 8th Edition) (Note M) Primary Tumor (pT) ___ pT4b: Tumor directly invades or adheres to adjacent organs or structures Regional Lymph Nodes (pN) ___ pN1: One to three regional lymph nodes are positive (tumor in lymph nodes measuring > or = 0.2 mm), or any number of tumor deposits are present and all identifiable lymph nodes are negative + Additional Pathologic Findings + ___ None identified (JPM:[facility] 03/08/2020) [facility] 03/08/2020 0951 Local . 02 Electronically signed: . Ramon Morton MD, Pathologist NPI- [id number] . 01 Gross description: . A. SEE GROSS DESCRIPTION FOR INTRAOPERATIVE CONSULTATION. . After overnight fixation, further opening of the specimen reveals a pale vallejo to light brown ileocecal valve surrounded by tumor on the colonic aspect. Extending down into the small bowel, tumor is also identified. The mass is 5.4 cm from the proximal margin, and 11.2 cm from the distal margin. The opposing serosal and fatty surfaces are inked blue. The serosal surface surrounding the area of perforation is inked black. The pericolic fat measures up to 4.2 cm in thickness. The mesenteric margin is inked orange. Sectioning through the mass reveals pale vallejo to mucinous cut surfaces, which grossly extends through the muscularis propria displaying a maximum depth of invasion of 4.1 cm. The mass grossly extends through the aforementioned area of perforation, grossly abuts the inked fatty surface, grossly approaches the attached omentum, and is 2.1 cm from the mesenteric margin. The remainder of the colonic mucosa is light vallejo in appearance with normal architectural folds. No additional nodules, lesions or polyps are identified grossly. The appendix is present measuring 4.1 cm in length by up to 2.0 cm in diameter. The serosal surface of the appendix is pink-vallejo in appearance with overlying adhesions. The proximal margin is inked. Sectioning through the appendix reveals a patent lumen filled with blood-tinged mucoid material. Sectioning through the omentum reveals bright yellow, lobulated cut surfaces throughout with no grossly distinct nodules or lesions. Sectioning through the attached pericolic fat reveals 13 readily identifiable lymph nodes, ranging in size from 0.4 to 1.1 cm, and grossly approaches the mesenteric margin. Sections are submitted technical services representative as follows: . A1 proximal margin, en face A2 distal margin, en face A3 perpendicular section through mesenteric margin A4 technical services representative section of tumor extending into small bowel A5 technical services representative section of ileocecal valve with adjacent tumor A6-A12 technical services representative sections from area of perforation A13 technical services representative section of tumor to show relationship with inked fatty surface A14 technical services representative section of tumor to show relationship with omentum A15-A16 additional technical services representative sections of tumor to show mucinous properties A17 technical services representative section of tumor to show relationship with adjacent normal colonic mucosa A18 uninvolved small bowel mucosa A19 uninvolved colonic mucosa A20-A22 technical services representative sections of appendix to include proximal margin and bisected tip A23 technical services representative sections of omentum A24-A25 intact lymph nodes A26-A27 one bisected lymph node in each cassette. . B. The specimen is received in formalin, labeled "Carlo Claudio, gallbladder and contents". Received is an intact gallbladder measuring 7.9 x 3.5 x 1.5 cm in greatest dimensions displaying a pink-jaimes serosal surface. Opening the specimen reveals a velvety, bile-stained mucosa displaying multiple polypoid excrescences ranging in size from 0.1 to 0.3 cm, and with a gallbladder wall thickness of 0.1 cm. Calculi are not present, and no masses or lesions are noted grossly. Ethanol Operator sections, to include the proximal margin and technical services representative polypoid excrescences, are submitted in cassette B1. . C. The specimen is received in formalin, labeled "Carlo Lopez, right upper quadrant". Received are two segments of mucinous-appearing pale vallejo possible soft tissue measuring 2.0 x 1.5 x 0.8 and 2.1 x 2.0 x 0.7 cm in greatest dimensions. A segment is bisected and the specimen is submitted entirely in cassettes C1 through C3. (CAA; 03/06/2020) QAC/LBQ 03/08/2020 0934 Local . 02 Pathologist provided ICD-10: C18.8, K82.4, K81.1, C19 . 02 CPT . 089902, 242586, 533825, [id number] Specimen Comment: A courtesy copy of this report has been sent to [phone], [phone] Specimen Comment: [id number] Specimen Comment: Report sent to / DR BONNER Performed at: 01 [facility] [address] [facility] [address], [place] [id number] MD Spencer Pelletier MD Phone: [phone] Performed at: 02 [facility] [address] [place], [place] [id number] MD Ramon Morton MD Phone: [phone]
[2020-03-08 16:29] LABS: HEMATOCRIT 21.4 % (39.0-53.0)
[2020-03-08] MEDS: TAMSULOSIN 0.4 MG CAP.ER.24H. PO SCH (21:00)
[2020-03-08] MEDS ORDERED: TOTAL PARENTERAL NUTRITION IV SCH ×2 (22:00)
[2020-03-08] MEDS ORDERED: [UNRECOGNIZED DRUG - OTHER] IV SCH (22:00)
[2020-03-08] MEDS ORDERED: DEXTROSE 70% IV SCH ×2 (22:00)
[2020-03-08] MEDS ORDERED: AMINO ACID IV SCH ×2 (22:00)
[2020-03-08] MEDS ORDERED: [UNRECOGNIZED DRUG - OTHER] IV SCH (22:00)
[2020-03-09] VITALS (27 sets, daily range): BP systolic 90–132; BP diastolic 41–76
[2020-03-09] MEDS: VASOPRESSIN 20 UNIT in IV DEXTROSE 5% 100ML 100 ML IV PRN ×3 (00:49→19:13)
[2020-03-09] MEDS: PIPERACILLIN/TAZOBACTAM 3.375 GM in IV NORMAL SALINE 50ML 50 ML IV SCH ×5 (00:49→23:27)
[2020-03-09 06:16] LABS: HEMATOCRIT 24.3 % (39.0-53.0); RED BLOOD COUNT 3.14 x10^6/uL (4.30-5.70); RED CELL DISTRIBUTION WIDTH 28.5 % (11.5-14.5); WHITE BLOOD COUNT 9.4 x10^3/uL (4.0-11.0)
[2020-03-09 06:36] LABS: CALCIUM 6.3 mg/dL (8.5-10.1); CREATININE 0.5 mg/dL (0.7-1.3); GFR 163.9; MAGNESIUM 1.9 mg/dL (1.8-2.4); PHOSPHORUS 2.4 mg/dL (2.6-4.7); POTASSIUM 3.5 mmol/L (3.5-5.1)
[2020-03-09 07:59] LABS: BASE EXCESS ABG -3 mmol/L (-3-3); HCO3 ABG 20 mmol/L (21-28); PCO2 ABG 28 mmHg (35-46); PO2 ABG 126 mmHg (65-108); SAT O2 ABG 98 % (92-99)
[2020-03-09 08:43] LABS: FIO2 ABG 40%+%
--- NOTE | 2020-03-09 08:55 | PDOC ---
PULMONARY PROGRESS NOTES Subjective Nothing new overnight remains sedated, on norepinephrine, vasopressin assist control ventilation Vitals Vital Signs Date Time Temp Pulse Resp B/P (MAP) Pulse Ox O2 Delivery O2 Flow Rate FiO2 03/09/20 08:00 72 03/09/20 08:00 98.0 16 100 Ventilator 98.0 Lungs: Clear Cardiovascular: S1, S2 Abdomen: Other (Dressing in place) Extremities: No Edema Skin: Warm Labs Laboratory Tests Test 03/07/20 09:00 03/08/20 05:40 03/08/20 08:00 03/08/20 16:15 White Blood Count 14.3 x10^3/uL (4.0-11.0) 10.7 x10^3/uL (4.0-11.0) Red Blood Count 2.99 x10^6/uL (4.30-5.70) 2.87 x10^6/uL (4.30-5.70) Hemoglobin 6.8 g/dL (13.0-17.5) 7.1 g/dL (13.0-17.5) 7.0 g/dL (13.0-17.5) Hematocrit 21.7 % (39.0-53.0) 21.6 % (39.0-53.0) 21.4 % (39.0-53.0) Mean Corpuscular Volume 73 fL (79-100) 75 fL (79-100) Mean Corpuscular Hemoglobin 23 pg (25-35) 25 pg (25-35) Mean Corpuscular Hemoglobin Concent 31 g/dL (31-37) 33 g/dL (31-37) 33 g/dL (31-37) Red Cell Distribution Width 30.6 % (11.5-14.5) 30.3 % (11.5-14.5) Platelet Count 207 x10^3/uL (140-400) 179 x10^3/uL (140-400) Neutrophils (%) (Auto) 89 % (31-73) Lymphocytes (%) (Auto) 4 % (24-48) Monocytes (%) (Auto) 7 % (0-9) Eosinophils (%) (Auto) 0 % (0-3) Basophils (%) (Auto) 0 % (0-3) Neutrophils # (Auto) 12.7 x10^3/uL (1.8-7.7) Lymphocytes # (Auto) 0.6 x10^3/uL (1.0-4.8) Monocytes # (Auto) 1.0 x10^3/uL (0.0-1.1) Eosinophils # (Auto) 0.0 x10^3/uL (0.0-0.7) Basophils # (Auto) 0.0 x10^3/uL (0.0-0.2) Sodium Level 128 mmol/L (136-145) Potassium Level 3.0 mmol/L (3.5-5.1) Chloride Level 98 mmol/L (98-107) Carbon Dioxide Level 25 mmol/L (21-32) Anion Gap 5 (6-14) Blood Urea Nitrogen 22 mg/dL (8-26) Creatinine 0.6 mg/dL (0.7-1.3) Estimated GFR (Cockcroft-Gault) 132.8 Glucose Level 91 mg/dL (70-99) Calcium Level 5.9 mg/dL (8.5-10.1) Phosphorus Level 1.6 mg/dL (2.6-4.7) Magnesium Level 1.5 mg/dL (1.8-2.4) Albumin 0.8 g/dL (3.4-5.0) O2 Saturation 97 % (92-99) Arterial Blood pH 7.48 (7.35-7.45) Arterial Blood pCO2 at Patient Temp 30 mmHg (35-46) Arterial Blood pO2 at Patient Temp 109 mmHg (65-108) Arterial Blood HCO3 22 mmol/L (21-28) Arterial Blood Base Excess -2 mmol/L (-3-3) FiO2 40 Test 03/09/20 05:30 03/09/20 08:00 White Blood Count 9.4 x10^3/uL (4.0-11.0) Red Blood Count 3.14 x10^6/uL (4.30-5.70) Hemoglobin 8.0 g/dL (13.0-17.5) Hematocrit 24.3 % (39.0-53.0) Mean Corpuscular Volume 78 fL (79-100) Mean Corpuscular Hemoglobin 25 pg (25-35) Mean Corpuscular Hemoglobin Concent 33 g/dL (31-37) Red Cell Distribution Width 28.5 % (11.5-14.5) Platelet Count 156 x10^3/uL (140-400) Sodium Level 131 mmol/L (136-145) Potassium Level 3.5 mmol/L (3.5-5.1) Chloride Level 103 mmol/L (98-107) Carbon Dioxide Level 24 mmol/L (21-32) Anion Gap 4 (6-14) Blood Urea Nitrogen 16 mg/dL (8-26) Creatinine 0.5 mg/dL (0.7-1.3) Estimated GFR (Cockcroft-Gault) 163.9 Glucose Level 142 mg/dL (70-99) Calcium Level 6.3 mg/dL (8.5-10.1) Phosphorus Level 2.4 mg/dL (2.6-4.7) Magnesium Level 1.9 mg/dL (1.8-2.4) O2 Saturation 98 % (92-99) Arterial Blood pH 7.47 (7.35-7.45) Arterial Blood pCO2 at Patient Temp 28 mmHg (35-46) Arterial Blood pO2 at Patient Temp 126 mmHg (65-108) Arterial Blood HCO3 20 mmol/L (21-28) Arterial Blood Base Excess -3 mmol/L (-3-3) FiO2 40%+% Laboratory Tests Test 03/08/20 16:15 03/09/20 05:30 03/09/20 08:00 Hemoglobin 7.0 g/dL (13.0-17.5) 8.0 g/dL (13.0-17.5) Hematocrit 21.4 % (39.0-53.0) 24.3 % (39.0-53.0) Mean Corpuscular Hemoglobin Concent 33 g/dL (31-37) 33 g/dL (31-37) White Blood Count 9.4 x10^3/uL (4.0-11.0) Red Blood Count 3.14 x10^6/uL (4.30-5.70) Mean Corpuscular Volume 78 fL (79-100) Mean Corpuscular Hemoglobin 25 pg (25-35) Red Cell Distribution Width 28.5 % (11.5-14.5) Platelet Count 156 x10^3/uL (140-400) Sodium Level 131 mmol/L (136-145) Potassium Level 3.5 mmol/L (3.5-5.1) Chloride Level 103 mmol/L (98-107) Carbon Dioxide Level 24 mmol/L (21-32) Anion Gap 4 (6-14) Blood Urea Nitrogen 16 mg/dL (8-26) Creatinine 0.5 mg/dL (0.7-1.3) Estimated GFR (Cockcroft-Gault) 163.9 Glucose Level 142 mg/dL (70-99) Calcium Level 6.3 mg/dL (8.5-10.1) Phosphorus Level 2.4 mg/dL (2.6-4.7) Magnesium Level 1.9 mg/dL (1.8-2.4) O2 Saturation 98 % (92-99) Arterial Blood pH 7.47 (7.35-7.45) Arterial Blood pCO2 at Patient Temp 28 mmHg (35-46) Arterial Blood pO2 at Patient Temp 126 mmHg (65-108) Arterial Blood HCO3 20 mmol/L (21-28) Arterial Blood Base Excess -3 mmol/L (-3-3) FiO2 40%+% Medications Active Scripts Medications Dose Route/Sig Max Daily Dose Days Date Category Flomax (Tamsulosin Hcl) 0.4 Mg Cap.er.24h 1 Cap PO QHS 03/02/20 Reported Impression . IMPRESSION: 1. Acute hypoxemic respiratory failure, expected status post surgical intervention for colonic mass. 2. Obstructing colonic cancer. 3. History of prostate cancer. 4. Severe protein malnutrition present upon admission. 5. Tobacco dependent. 6. Chronic obstructive pulmonary disease. 7. SARS-CoV-2 negative. 8. Cholelithiasis. 9. Hyponatremia. 10. Protein malnutrition, present upon admission. 11. Benign prostatic hypertrophy. 12. S/p open right colon resection, partial resection of duodenum, placement of duodenostomy tube, cholecystectomy, ghost ileostomy 13. Acute blood loss anemia 14. Respiratory alkalosis 15. Hypocalcemia Plan . Not ready for trial Transfuse per surgery Follow nephrology input Minute ventilation adjusted, patient currently alkalotic Continue assist control ventilation IV fluids IV pressors Empiric antibiotics DVT GI prophylaxis Total cumulative critical care time of 30 minutes reviewing data, labs, chest x-ray and formulating a plan. DOTTIE WILBURN MD Mar 09, 2020 08:55
[2020-03-09] MEDS: PANTOPRAZOLE IV PUSH 40 MG VIAL. IVP SCH (09:00)
[2020-03-09] MEDS: ENOXAPARIN 40 MG/0.4 ML SYRINGE. SQ SCH (09:01)
--- NOTE | 2020-03-09 09:27 | NUR ---
VS monitored per pressor protocol. First H documentation q 15 then charted documentation q 30 M if time available. Hard copy from monitor print out will be posted on chart at end of shift 03/09. Medication bolus prn w expected calming /vent tolerance results. Drains effective /patent ,see flow sheet fro specifics. Continue POC at this time
[2020-03-09] MEDS: TPN PER PHARMACY MC PRN (09:51)
--- NOTE | 2020-03-09 09:55 | NUR ---
Pharmacy TPN Dosing Note S: FABIANO HELLER is a 69 year old M Currently receiving Central Continuous TPN started 03/08/20 B:Pertinent PMH: NPO/SBO Current diet: NPO LABS: Sodium: 131 Potassium: 3.5 Chloride: 103 Calcium: 6.3 Corrected Calcium: 8.86 Magnesium: 1.9 CO2: 24 SCr: 0.5 Glucose: 142 Albumin: 0.8 AST: 19 ALT: 17 TPN FORMULA: TPN TYPE: Central Continuous AMINO ACIDS: 95 gm DEXTROSE: 225 gm LIPIDS: 20 gm SODIUM CHLORIDE: 100 mEq SODIUM ACETATE: - mEq SODIUM PHOSPHATE: - mmol POTASSIUM CHLORIDE: 50 mEq POTASSIUM ACETATE: - mEq POTASSIUM PHOSPHATE: 18 mmol MAGNESIUM: 15 mEq CALCIUM: 10 mEq INSULIN: - units MULTIPLE VITAMIN: 10 ml TRACE ELEMENTS: 1 ml ml(s) TPN PLAN: 03/09 CONT SAME, REPEAT LABS IN AM R: Continue TPN Will monitor electrolytes, glucose, and tolerance to TPN. REYMUNDO ROMERO [facility], 03/09/20 0940
--- NOTE | 2020-03-09 09:57 | PDOC ---
SURGICAL PROGRESS NOTE Subjective Patient sedated and on the ventilator Vital Signs Vital Signs Date Time Temp Pulse Resp B/P (MAP) Pulse Ox O2 Delivery O2 Flow Rate FiO2 03/09/20 09:00 79 16 118/73 (88) 100 Ventilator 03/09/20 08:00 98.0 98.0 I&O Intake and Output 03/09/20 07:00 Intake Total 2182.68 ml Output Total 1625 ml Balance 557.68 ml Intake Oral 0 ml IV Total 1857.68 ml Blood Product IV Normal Saline Flush 325 ml Output Urine Total 475 ml Drainage Total 1150 ml PATIENT HAS A DOZIER: Yes General: Other (Sedated on ventilator) Abdomen: Soft, Other (Wounds clean dry and intact AVI drain with serous drainage duodenal drain with some bilious drainage minimal) Labs Laboratory Tests Test 03/08/20 05:40 03/08/20 08:00 03/08/20 16:15 03/09/20 05:30 White Blood Count 10.7 x10^3/uL (4.0-11.0) 9.4 x10^3/uL (4.0-11.0) Red Blood Count 2.87 x10^6/uL (4.30-5.70) 3.14 x10^6/uL (4.30-5.70) Hemoglobin 7.1 g/dL (13.0-17.5) 7.0 g/dL (13.0-17.5) 8.0 g/dL (13.0-17.5) Hematocrit 21.6 % (39.0-53.0) 21.4 % (39.0-53.0) 24.3 % (39.0-53.0) Mean Corpuscular Volume 75 fL (79-100) 78 fL (79-100) Mean Corpuscular Hemoglobin 25 pg (25-35) 25 pg (25-35) Mean Corpuscular Hemoglobin Concent 33 g/dL (31-37) 33 g/dL (31-37) 33 g/dL (31-37) Red Cell Distribution Width 30.3 % (11.5-14.5) 28.5 % (11.5-14.5) Platelet Count 179 x10^3/uL (140-400) 156 x10^3/uL (140-400) Sodium Level 128 mmol/L (136-145) 131 mmol/L (136-145) Potassium Level 3.0 mmol/L (3.5-5.1) 3.5 mmol/L (3.5-5.1) Chloride Level 98 mmol/L (98-107) 103 mmol/L (98-107) Carbon Dioxide Level 25 mmol/L (21-32) 24 mmol/L (21-32) Anion Gap 5 (6-14) 4 (6-14) Blood Urea Nitrogen 22 mg/dL (8-26) 16 mg/dL (8-26) Creatinine 0.6 mg/dL (0.7-1.3) 0.5 mg/dL (0.7-1.3) Estimated GFR (Cockcroft-Gault) 132.8 163.9 Glucose Level 91 mg/dL (70-99) 142 mg/dL (70-99) Calcium Level 5.9 mg/dL (8.5-10.1) 6.3 mg/dL (8.5-10.1) Phosphorus Level 1.6 mg/dL (2.6-4.7) 2.4 mg/dL (2.6-4.7) Magnesium Level 1.5 mg/dL (1.8-2.4) 1.9 mg/dL (1.8-2.4) Albumin 0.8 g/dL (3.4-5.0) O2 Saturation 97 % (92-99) Arterial Blood pH 7.48 (7.35-7.45) Arterial Blood pCO2 at Patient Temp 30 mmHg (35-46) Arterial Blood pO2 at Patient Temp 109 mmHg (65-108) Arterial Blood HCO3 22 mmol/L (21-28) Arterial Blood Base Excess -2 mmol/L (-3-3) FiO2 40 Test 03/09/20 08:00 O2 Saturation 98 % (92-99) Arterial Blood pH 7.47 (7.35-7.45) Arterial Blood pCO2 at Patient Temp 28 mmHg (35-46) Arterial Blood pO2 at Patient Temp 126 mmHg (65-108) Arterial Blood HCO3 20 mmol/L (21-28) Arterial Blood Base Excess -3 mmol/L (-3-3) FiO2 40%+% Laboratory Tests Test 03/08/20 16:15 03/09/20 05:30 03/09/20 08:00 Hemoglobin 7.0 g/dL (13.0-17.5) 8.0 g/dL (13.0-17.5) Hematocrit 21.4 % (39.0-53.0) 24.3 % (39.0-53.0) Mean Corpuscular Hemoglobin Concent 33 g/dL (31-37) 33 g/dL (31-37) White Blood Count 9.4 x10^3/uL (4.0-11.0) Red Blood Count 3.14 x10^6/uL (4.30-5.70) Mean Corpuscular Volume 78 fL (79-100) Mean Corpuscular Hemoglobin 25 pg (25-35) Red Cell Distribution Width 28.5 % (11.5-14.5) Platelet Count 156 x10^3/uL (140-400) Sodium Level 131 mmol/L (136-145) Potassium Level 3.5 mmol/L (3.5-5.1) Chloride Level 103 mmol/L (98-107) Carbon Dioxide Level 24 mmol/L (21-32) Anion Gap 4 (6-14) Blood Urea Nitrogen 16 mg/dL (8-26) Creatinine 0.5 mg/dL (0.7-1.3) Estimated GFR (Cockcroft-Gault) 163.9 Glucose Level 142 mg/dL (70-99) Calcium Level 6.3 mg/dL (8.5-10.1) Phosphorus Level 2.4 mg/dL (2.6-4.7) Magnesium Level 1.9 mg/dL (1.8-2.4) O2 Saturation 98 % (92-99) Arterial Blood pH 7.47 (7.35-7.45) Arterial Blood pCO2 at Patient Temp 28 mmHg (35-46) Arterial Blood pO2 at Patient Temp 126 mmHg (65-108) Arterial Blood HCO3 20 mmol/L (21-28) Arterial Blood Base Excess -3 mmol/L (-3-3) FiO2 40%+% Problem List Problems Medical Problems: (1) Anemia Status: Acute (2) Colonic mass Status: Acute (3) Fatigue Status: Acute (4) Hypocalcemia Status: Acute (5) Nausea & vomiting Status: Acute (6) SBO (small bowel obstruction) Status: Acute Assessment/Plan Status post colon resection for obstructing colon cancer Hemodynamically improving weaning pressors Awaiting return of bowel function prior to starting tube feeds continue TPN Continue supportive care Justicifation of Admission Dx: Justifications for Admission: Justification of Admission Dx: Yes TRISTIAN SCRUGGS MD Mar 09, 2020 09:57
[2020-03-09] MEDS: MIDAZOLAM HCL IV PRN ×2 (10:04→19:13)
[2020-03-09] MEDS: NORMAL SALINE IV PRN ×2 (10:04→19:13)
--- NOTE | 2020-03-09 11:53 | PDOC ---
SUBJECTIVE ROS Remains Intubated ,On MV , OBJECTIVE Vital Signs Vital Signs Date Time Temp Pulse Resp B/P (MAP) Pulse Ox O2 Delivery O2 Flow Rate FiO2 03/09/20 10:55 100 Ventilator 03/09/20 09:00 79 16 118/73 (88) 03/09/20 08:00 98.0 98.0 I & 0 Intake and Output 03/09/20 07:00 Intake Total 2182.68 ml Output Total 1625 ml Balance 557.68 ml Intake Oral 0 ml IV Total 1857.68 ml Blood Product IV Normal Saline Flush 325 ml Output Urine Total 475 ml Drainage Total 1150 ml PHYSICAL EXAM Physical Exam General Appearance: no apparent distress HEEN Intubated Skin: warm Respiratory: decreased at bases Heart: S1S2 Abdomen: s/p Surgery Genitourinary: Booth + Neurology: Intubated DIAGNOSIS/ASSESSMENT Assessment & Plan Hyponatremia - Na stable 131, Recd 3% Saline GEORGES- Cr Normal- may not be accurate 2/2 severe malnutrition but stable pressors, supportive care , avoid nephrotoxins HypoCalcemia- Albumin 0.8, Corrected Ca Normal HyPhos- Replace as indicated, adjust in TPN HypoMg- Replace and adjust in TPN 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 S/P Open right colon resection, partial resection of duodenum, placement of duodenostomy tube, cholecystectomy with cholangiogram, ghost ileostomy Anemia- S/P PRBC yesterday per GS Severe protein calorie malnutrition- On TPN HX of prostate cancer BPH Critically ill COMMENT/RELEVANT DATA Meds Current Medications Medications (Trade) Dose Ordered Sig/Faisal Start Time Stop Time Status Last Admin Dose Admin Acetaminophen (Tylenol Supp) 650 mg PRN Q4HRS PRN 03/03/20 09:45 Albumin Human 500 ml @ As Directed STK-MED ONCE 03/05/20 13:13 03/05/20 13:14 DC Amino Acids/ Glycerin/ Electrolytes 1,000 ml @ 80 mls/hr [id number] 03/03/20 15:00 03/07/20 13:22 DC 03/07/20 02:41 80 MLS/HR Bisacodyl (Dulcolax Supp) 10 mg 1X ONCE 03/04/20 10:00 03/04/20 10:05 DC 03/04/20 12:18 10 MG Bisacodyl (Dulcolax Tab) 10 mg PRN DAILY PRN 03/03/20 09:45 03/06/20 10:25 DC 03/03/20 13:47 10 MG Bupivacaine HCl/ Epinephrine Bitart (Sensorcain-Epi 0.5%-1:350226 Mpf) 30 ml STK-MED ONCE 03/05/20 10:42 03/05/20 10:42 DC Calcium Gluconate (Calcium Gluconate) 1,000 mg 1X ONCE 03/02/20 18:15 03/02/20 18:18 DC 03/02/20 18:21 1,000 MG Cefoxitin Sodium (Mefoxin) 1 gm STK-MED ONCE 03/05/20 12:57 03/05/20 12:57 DC Dexamethasone Sodium Phosphate (Decadron) 4 mg STK-MED ONCE 03/05/20 10:23 03/05/20 10:23 DC Docusate Sodium (Colace) 100 mg DAILY 03/03/20 12:00 03/06/20 10:25 DC 03/04/20 09:21 100 MG Enoxaparin Sodium (Lovenox 40mg Syringe) 40 mg Q24H 03/06/20 08:00 03/09/20 09:01 40 MG Enoxaparin Sodium (Lovenox Per Pharmacy Prophylaxis Dosing) 1 each PRN DAILY PRN 03/02/20 20:30 Cancel Ephedrine Sulfate (ePHEDrine PF IN SALINE SYRINGE) 50 mg STK-MED ONCE 03/05/20 12:13 03/05/20 12:14 DC Fentanyl Citrate 30 ml @ 2.5 mls/hr CONT PRN PRN 03/05/20 15:15 03/09/20 10:06 2.5 MLS/HR Fentanyl Citrate (Fentanyl 2ml Vial) 100 mcg STK-MED ONCE 03/05/20 10:24 03/05/20 10:24 DC Furosemide (Lasix) 40 mg 1X ONCE 03/03/20 15:00 03/03/20 15:01 DC 03/03/20 16:48 40 MG Hydromorphone HCl (Dilaudid) 0.5 mg PRN Q10MIN PRN 03/05/20 07:15 03/05/20 20:00 DC Info (CONTRAST GIVEN -- Rx MONITORING) 1 each PRN DAILY PRN 03/03/20 16:15 03/05/20 16:15 DC Info (Tpn Per Pharmacy) 1 each PRN DAILY PRN 03/08/20 11:00 03/09/20 09:51 1 EACH Iohexol (Omnipaque 300 Mg/ml) 50 ml STK-MED ONCE 03/05/20 10:41 03/05/20 10:41 DC 03/05/20 11:43 27 ML Lidocaine (Lidoderm) 1 patch DAILY 03/04/20 16:30 Cancel Lidocaine HCl (Lidocaine Pf 2% Vial) 5 ml STK-MED ONCE 03/05/20 10:23 03/05/20 10:23 DC Lidocaine HCl (Xylocaine-Mpf 1% 2ml Vial) 2 ml 1X PRN PRN 03/05/20 07:15 03/05/20 20:00 DC Magnesium Sulfate 50 ml @ 25 mls/hr 1X ONCE 03/08/20 08:00 03/08/20 09:59 DC 03/08/20 08:00 25 MLS/HR Midazolam HCl 100 mg/Sodium Chloride 100 ml @ 1 mls/hr CONT PRN 03/05/20 15:15 03/09/20 10:04 5 MLS/HR Miscellaneous (Lidoderm Patch Removal) 1 ea QHS 03/04/20 21:00 Cancel Morphine Sulfate 30 ml @ 0 mls/hr CONT PRN PRN 03/05/20 16:15 03/06/20 09:48 DC Morphine Sulfate (Morphine Sulfate) 1 mg PRN Q10MIN PRN 03/05/20 07:15 03/05/20 20:00 DC Naloxone HCl (Narcan) 0.4 mg PRN Q2MIN PRN 03/05/20 16:15 Norepinephrine Bitartrate 8 mg/ Dextrose 258 ml @ 15.287 mls/ hr CONT PRN 03/05/20 15:30 03/08/20 11:23 5.7 MLS/HR Ondansetron HCl (Zofran) 4 mg PRN Q6HRS PRN 03/05/20 16:15 Pantoprazole Sodium (PROTONIX VIAL for IV PUSH) 40 mg DAILYAC 03/05/20 10:30 03/09/20 09:00 40 MG Phenylephrine HCl (Devin-Synephrine Inj) 10 mg STK-MED ONCE 03/05/20 14:35 03/05/20 14:36 DC Phenylephrine HCl (PHENYLEPHRINE in 0.9% NACL PF) 1 mg STK-MED ONCE 03/05/20 12:13 03/05/20 12:14 DC Piperacillin Sod/ Tazobactam Sod 3.375 gm/Sodium Chloride 50 ml @ 100 mls/hr Q6HRS 03/05/20 17:00 03/09/20 05:26 100 MLS/HR Polyethylene Glycol (miraLAX PACKET) 17 gm QHS 03/03/20 21:00 03/06/20 10:25 DC 03/04/20 21:03 17 GM Potassium Chloride/Water 100 ml @ 100 mls/hr 1X ONCE 03/08/20 16:00 03/08/20 16:59 DC 03/08/20 15:51 100 MLS/HR Potassium Phosphate 13.6 mmol/Sodium Chloride 254.5333 ml @ 62.5 mls/hr Q4H 03/08/20 08:30 03/08/20 20:29 DC 03/08/20 16:52 62.5 MLS/HR Prochlorperazine Edisylate (Compazine) 5 mg PACU PRN PRN 03/05/20 07:15 03/06/20 07:14 DC Propofol (Diprivan) 200 mg STK-MED ONCE 03/05/20 10:23 03/05/20 10:23 DC Psyllium Hydrophilic Mucilloid (Metamucil Fiber Packet) 1 pkt QHS 03/03/20 21:00 03/06/20 10:25 DC 03/04/20 21:03 1 PKT Ringer's Solution 1,000 ml @ 999 mls/hr 1X ONCE 03/06/20 18:15 03/06/20 19:15 DC 03/06/20 18:43 999 MLS/HR Rocuronium [place] (Zemuron) 50 mg STK-MED ONCE 03/05/20 12:27 03/05/20 12:27 DC Sevoflurane (Ultane) 90 ml STK-MED ONCE 03/05/20 14:30 03/05/20 14:30 DC Sodium Chloride (Normal Saline Flush) 3 ml QSHIFT PRN 03/05/20 16:15 Sodium Chloride 100 meq/Potassium Chloride 50 meq/ Potassium Phosphate 18 mmol/ Magnesium Sulfate 15 meq/Calcium Gluconate 10 meq/ Multivitamins 10 ml/Chromium/ Copper/Manganese/ Seleni/Zn 1 ml/ Total Parenteral Nutrition/Amino Acids/Dextrose/ Fat Emulsion Intravenous 1,920 ml @ 80 mls/hr TPN CONT 03/09/20 22:00 03/10/20 21:59 Succinylcholine Chloride (Anectine) 200 mg STK-MED ONCE 03/05/20 10:23 03/05/20 10:23 DC Tamsulosin HCl (Flomax) 0.4 mg HS 03/02/20 23:45 03/04/20 21:03 0.4 MG Vasopressin 20 unit/Dextrose 101 ml @ 12 mls/hr CONT PRN 03/05/20 20:00 03/09/20 10:01 12 MLS/HR Lab Laboratory Tests Test 03/08/20 16:15 03/09/20 05:30 03/09/20 08:00 Hemoglobin 7.0 g/dL (13.0-17.5) 8.0 g/dL (13.0-17.5) Hematocrit 21.4 % (39.0-53.0) 24.3 % (39.0-53.0) Mean Corpuscular Hemoglobin Concent 33 g/dL (31-37) 33 g/dL (31-37) White Blood Count 9.4 x10^3/uL (4.0-11.0) Red Blood Count 3.14 x10^6/uL (4.30-5.70) Mean Corpuscular Volume 78 fL (79-100) Mean Corpuscular Hemoglobin 25 pg (25-35) Red Cell Distribution Width 28.5 % (11.5-14.5) Platelet Count 156 x10^3/uL (140-400) Sodium Level 131 mmol/L (136-145) Potassium Level 3.5 mmol/L (3.5-5.1) Chloride Level 103 mmol/L (98-107) Carbon Dioxide Level 24 mmol/L (21-32) Anion Gap 4 (6-14) Blood Urea Nitrogen 16 mg/dL (8-26) Creatinine 0.5 mg/dL (0.7-1.3) Estimated GFR (Cockcroft-Gault) 163.9 Glucose Level 142 mg/dL (70-99) Calcium Level 6.3 mg/dL (8.5-10.1) Phosphorus Level 2.4 mg/dL (2.6-4.7) Magnesium Level 1.9 mg/dL (1.8-2.4) O2 Saturation 98 % (92-99) Arterial Blood pH 7.47 (7.35-7.45) Arterial Blood pCO2 at Patient Temp 28 mmHg (35-46) Arterial Blood pO2 at Patient Temp 126 mmHg (65-108) Arterial Blood HCO3 20 mmol/L (21-28) Arterial Blood Base Excess -3 mmol/L (-3-3) FiO2 40%+% Results All relevant outside records, renal labs, imaging studies, telemetry/EKG's were reviewed. Justicifation of Admission Dx: Justifications for Admission: Justification of Admission Dx: Yes SUZANNE KATHLEEN MD Mar 09, 2020 11:53
--- NOTE | 2020-03-09 13:23 | PDOC ---
G I PROGRESS NOTE Reason for Follow-up Obstruction/colon cancer s/p resection Subjective Sedated/on vent Physical Exam Lungs decreased BS CV S1 S-2- -A-B-D- -g-w-m-o-i-m-e-s- -s-l-f-a-c-t-,- -m-i--n-i-m-a-l- -B-S-,- -s-o-f-t- Review of Relevant I have reviewed the following items radhames (where applicable) has been applied. Labs Laboratory Tests Test 03/08/20 05:40 03/08/20 08:00 03/08/20 16:15 03/09/20 05:30 White Blood Count 10.7 x10^3/uL (4.0-11.0) 9.4 x10^3/uL (4.0-11.0) Red Blood Count 2.87 x10^6/uL (4.30-5.70) 3.14 x10^6/uL (4.30-5.70) Hemoglobin 7.1 g/dL (13.0-17.5) 7.0 g/dL (13.0-17.5) 8.0 g/dL (13.0-17.5) Hematocrit 21.6 % (39.0-53.0) 21.4 % (39.0-53.0) 24.3 % (39.0-53.0) Mean Corpuscular Volume 75 fL (79-100) 78 fL (79-100) Mean Corpuscular Hemoglobin 25 pg (25-35) 25 pg (25-35) Mean Corpuscular Hemoglobin Concent 33 g/dL (31-37) 33 g/dL (31-37) 33 g/dL (31-37) Red Cell Distribution Width 30.3 % (11.5-14.5) 28.5 % (11.5-14.5) Platelet Count 179 x10^3/uL (140-400) 156 x10^3/uL (140-400) Sodium Level 128 mmol/L (136-145) 131 mmol/L (136-145) Potassium Level 3.0 mmol/L (3.5-5.1) 3.5 mmol/L (3.5-5.1) Chloride Level 98 mmol/L (98-107) 103 mmol/L (98-107) Carbon Dioxide Level 25 mmol/L (21-32) 24 mmol/L (21-32) Anion Gap 5 (6-14) 4 (6-14) Blood Urea Nitrogen 22 mg/dL (8-26) 16 mg/dL (8-26) Creatinine 0.6 mg/dL (0.7-1.3) 0.5 mg/dL (0.7-1.3) Estimated GFR (Cockcroft-Gault) 132.8 163.9 Glucose Level 91 mg/dL (70-99) 142 mg/dL (70-99) Calcium Level 5.9 mg/dL (8.5-10.1) 6.3 mg/dL (8.5-10.1) Phosphorus Level 1.6 mg/dL (2.6-4.7) 2.4 mg/dL (2.6-4.7) Magnesium Level 1.5 mg/dL (1.8-2.4) 1.9 mg/dL (1.8-2.4) Albumin 0.8 g/dL (3.4-5.0) O2 Saturation 97 % (92-99) Arterial Blood pH 7.48 (7.35-7.45) Arterial Blood pCO2 at Patient Temp 30 mmHg (35-46) Arterial Blood pO2 at Patient Temp 109 mmHg (65-108) Arterial Blood HCO3 22 mmol/L (21-28) Arterial Blood Base Excess -2 mmol/L (-3-3) FiO2 40 Test 03/09/20 08:00 O2 Saturation 98 % (92-99) Arterial Blood pH 7.47 (7.35-7.45) Arterial Blood pCO2 at Patient Temp 28 mmHg (35-46) Arterial Blood pO2 at Patient Temp 126 mmHg (65-108) Arterial Blood HCO3 20 mmol/L (21-28) Arterial Blood Base Excess -3 mmol/L (-3-3) FiO2 40%+% Laboratory Tests Test 03/08/20 16:15 03/09/20 05:30 03/09/20 08:00 Hemoglobin 7.0 g/dL (13.0-17.5) 8.0 g/dL (13.0-17.5) Hematocrit 21.4 % (39.0-53.0) 24.3 % (39.0-53.0) Mean Corpuscular Hemoglobin Concent 33 g/dL (31-37) 33 g/dL (31-37) White Blood Count 9.4 x10^3/uL (4.0-11.0) Red Blood Count 3.14 x10^6/uL (4.30-5.70) Mean Corpuscular Volume 78 fL (79-100) Mean Corpuscular Hemoglobin 25 pg (25-35) Red Cell Distribution Width 28.5 % (11.5-14.5) Platelet Count 156 x10^3/uL (140-400) Sodium Level 131 mmol/L (136-145) Potassium Level 3.5 mmol/L (3.5-5.1) Chloride Level 103 mmol/L (98-107) Carbon Dioxide Level 24 mmol/L (21-32) Anion Gap 4 (6-14) Blood Urea Nitrogen 16 mg/dL (8-26) Creatinine 0.5 mg/dL (0.7-1.3) Estimated GFR (Cockcroft-Gault) 163.9 Glucose Level 142 mg/dL (70-99) Calcium Level 6.3 mg/dL (8.5-10.1) Phosphorus Level 2.4 mg/dL (2.6-4.7) Magnesium Level 1.9 mg/dL (1.8-2.4) O2 Saturation 98 % (92-99) Arterial Blood pH 7.47 (7.35-7.45) Arterial Blood pCO2 at Patient Temp 28 mmHg (35-46) Arterial Blood pO2 at Patient Temp 126 mmHg (65-108) Arterial Blood HCO3 20 mmol/L (21-28) Arterial Blood Base Excess -3 mmol/L (-3-3) FiO2 40%+% Microbiology 03/02/20 Urine Culture - Final, Complete Medications Current Medications Sodium Chloride 1,000 ml @ 1,000 mls/hr 1X ONCE IV Last administered on 03/02/20at 17:05; Start 03/02/20 at 16:45; Stop 03/02/20 at 17:44; Status DC Calcium Gluconate (Calcium Gluconate) 1,000 mg 1X ONCE IVP Last administered on 03/02/20at 18:21; Start 03/02/20 at 18:15; Stop 03/02/20 at 18:18; Status DC Iohexol (Omnipaque 300 Mg/ml) 75 ml 1X ONCE IV Last administered on 03/02/20at 18:34; Start 03/02/20 at 18:30; Stop 03/02/20 at 18:31; Status DC Pantoprazole Sodium (PROTONIX VIAL for IV PUSH) 40 mg 1X ONCE IVP Last administered on 03/02/20at 18:41; Start 03/02/20 at 18:45; Stop 03/02/20 at 1 8:46; Status DC Sodium Chloride 1,000 ml @ 100 mls/hr 1X ONCE IV Last administered on 03/02/20at 19:04; Start 03/02/20 at 18:45; Stop 03/03/20 at 04:44; Status DC Enoxaparin Sodium (Lovenox Per Pharmacy Prophylaxis Dosing) 1 each PRN DAILY PRN MC SEE COMMENTS; Start 03/02/20 at 20:30; Status Cancel Enoxaparin Sodium (Lovenox 40mg Syringe) 40 mg Q24H SQ Last administered on at 23:48; Start 03/02/20 at 21:00; Stop 03/03/20 at 08:48; Status DC Tamsulosin HCl (Flomax) 0.4 mg HS PO Last administered on 03/04/20at 21:03; Start 03/02/20 at 23:45 Sodium Chloride 1,000 ml @ 100 mls/hr Q10H IV Last administered on 03/03/20at 1 1:07; Start 03/03/20 at 10:00; Stop 03/03/20 at 14:58; Status DC Ondansetron HCl (Zofran) 4 mg PRN Q4HRS PRN IV NAUSEA/VOMITING Last administered on 03/04/20at 22:31; Start 03/03/20 at 09:45; Stop 03/05/20 at 16:15; Status DC Acetaminophen (Tylenol Supp) 650 mg PRN Q4HRS PRN AK TEMP OVER 100.4F OR MILD PAIN; Start 03/03/20 at 09:45 Polyethylene Glycol (miraLAX PACKET) 17 gm DAILY PO Last administered on 03/04/20at 09:21; Start 03/03/20 at 10:00; Stop 03/06/20 at 10:25; Status DC Bisacodyl (Dulcolax Supp) 10 mg PRN DAILY PRN [place] CONSTIPATION; Start 03/03/20 at 09:45; Stop 03/06/20 at 10:25; Status DC Bisacodyl (Dulcolax Tab) 10 mg PRN DAILY PRN PO CONSTIPATION Last administered on 03/03/20at 13:47; Start 03/03/20 at 09:45; Stop 03/06/20 at 10:25; Status DC Psyllium Hydrophilic Mucilloid (Metamucil Fiber Packet) 1 pkt QHS PO Last administered on 03/04/20at 21:03; Start 03/03/20 at 21:00; Stop 03/06/20 at 10:25; Status DC Polyethylene Glycol (miraLAX PACKET) 17 gm QHS PO Last administered on 03/04/20at 21:03; Start 03/03/20 at 21:00; Stop 03/06/20 at 10:25; Status DC Docusate Sodium (Colace) 100 mg DAILY PO Last administered on 03/04/20at 09:21; Start 03/03/20 at 12:00; Stop 03/06/20 at 10:25; Status DC Amino Acids/ Glycerin/ Electrolytes 1,000 ml @ 80 mls/hr [id number] IV Last administered on 03/07/20at 02:41; Start 03/03/20 at 15:00; Stop 03/07/20 at 13:22; Status DC Furosemide (Lasix) 40 mg 1X ONCE IVP Last administered on 03/03/20at 16:48; Start 03/03/20 at 15:00; Stop 03/03/20 at 15:01; Status DC Iohexol (Omnipaque 300 Mg/ml) 75 ml 1X ONCE IV Last administered on 03/03/20at 16:33; Start 03/03/20 at 16:15; Stop 03/03/20 at 16:16; Status DC Info (CONTRAST GIVEN -- Rx MONITORING) 1 each PRN DAILY PRN MC SEE COMMENTS; Start 03/03/20 at 16:15; Stop 03/05/20 at 16:15; Status DC Bisacodyl (Dulcolax Supp) 10 mg 1X ONCE AK Last administered on 03/04/20at 12:18; Start 03/04/20 at 10:00; Stop 03/04/20 at 10:05; Status DC Cefoxitin Sodium (Mefoxin) 2 gm 1X PREOP IVP Last administered on 03/05/20at 13:09; Start 03/05/20 at 10:00; Stop 03/08/20 at 11:05; Status DC Lidocaine (Lidoderm) 1 patch DAILY TD ; Start 03/04/20 at 16:30; Status Cancel Miscellaneous (Lidoderm Patch Removal) 1 ea QHS ; Start 03/04/20 at 21:00; Status Cancel Ondansetron HCl (Zofran) 4 mg PRN Q6HRS PRN IVP NAUSEA/VOMITING; Start 03/05/20 at 07:15; Stop 03/05/20 at 20:00; Status DC Fentanyl Citrate (Fentanyl 2ml Vial) 25 mcg PRN Q5MIN PRN IVP MILD PAIN 1-3; Start 03/05/20 at 07:15; Stop 03/05/20 at 20:00; Status DC Fentanyl Citrate (Fentanyl 2ml Vial) 50 mcg PRN Q5MIN PRN IVP MODERATE TO SEVERE PAIN; Start 03/05/20 at 07:15; Stop 03/05/20 at 20:00; Status DC Morphine Sulfate (Morphine Sulfate) 1 mg PRN Q10MIN PRN IVP SEVERE PAIN 7-10; Start 03/05/20 at 07:15; Stop 03/05/20 at 20:00; Status DC Ringer's Solution 1,000 ml @ 30 mls/hr Q24H IV Last administered on 03/05/20at 09:59; Start 03/05/20 at 07:05; Stop 03/05/20 at 19:04; Status DC Lidocaine HCl (Xylocaine-Mpf 1% 2ml Vial) 2 ml 1X PRN PRN ID IV START; Start 03/05/20 at 07:15; Stop 03/05/20 at 20:00; Status DC Hydromorphone HCl (Dilaudid) 0.5 mg PRN Q10MIN PRN IVP SEV PAIN, Second choice; Start 03/05/20 at 07:15; Stop 03/05/20 at 20:00; Status DC Prochlorperazine Edisylate (Compazine) 5 mg PACU PRN PRN IVP NAUSEA, MRX1; Sta rt 03/05/20 at 07:15; Stop 03/06/20 at 07:14; Status DC Pantoprazole Sodium (PROTONIX VIAL for IV PUSH) 40 mg DAILYAC IVP Last administered on 03/09/20at 09:00; Start 03/05/20 at 10:30 Propofol (Diprivan) 200 mg STK-MED ONCE IV ; Start 03/05/20 at 10:23; Stop 03/05/20 at 10:23; Status DC Lidocaine HCl (Lidocaine Pf 2% Vial) 5 ml STK-MED ONCE .ROUTE ; Start 03/05/20 at 10:23; Stop 03/05/20 at 10:23; Status DC Ondansetron HCl (Zofran) 4 mg STK-MED ONCE .ROUTE ; Start 03/05/20 at 10:23; Stop 03/05/20 at 10:23; Status DC Dexamethasone Sodium Phosphate (Decadron) 4 mg STK-MED ONCE .ROUTE ; Start 03/05/20 at 10:23; Stop 03/05/20 at 10:23; Status DC Succinylcholine Chloride (Anectine) 200 mg STK-MED ONCE .ROUTE ; Start 03/05/20 at 10:23; Stop 03/05/20 at 10:23; Status DC Rocuronium H[place]orne (Zemuron) 50 mg STK-MED ONCE .ROUTE ; Start 03/05/20 at 10:24; Stop 03/05/20 at 10:24; Status DC Fentanyl Citrate (Fentanyl 2ml Vial) 100 mcg STK-MED ONCE .ROUTE ; Start 03/05/20 at 10:24; Stop 03/05/20 at 10:24; Status DC Iohexol (Omnipaque 300 Mg/ml) 50 ml STK-MED ONCE .ROUTE Last administered on 03/05/20at 11:43; Start 03/05/20 at 10:41; Stop 03/05/20 at 10:41; Status DC Bupivacaine HCl/ Epinephrine Bitart (Sensorcain-Epi 0.5%-1:511774 Mpf) 30 ml STK-MED ONCE .ROUTE ; Start 03/05/20 at 10:42; Stop 03/05/20 at 10:42; Status DC Phenylephrine HCl (PHENYLEPHRINE in 0.9% NACL PF) 1 mg STK-MED ONCE IV ; Start 03/05/20 at 12:13; Stop 03/05/20 at 12:14; Status DC Ephedrine Sulfate (ePHEDrine PF IN SALINE SYRINGE) 50 mg STK-MED ONCE IV ; Start 03/05/20 at 12:13; Stop 03/05/20 at 12:14; Status DC Phenylephrine HCl (Devin-Synephrine Inj) 10 mg STK-MED ONCE .ROUTE ; Start 03/05/20 at 12:15; Stop 03/05/20 at 12:15; Status DC Rocuronium [place]orne (Zemuron) 50 mg STK-MED ONCE .ROUTE ; Start 03/05/20 at 12:27; Stop 03/05/20 at 12:27; Status DC Cefoxitin Sodium (Mefoxin) 1 gm STK-MED ONCE IVP ; Start 03/05/20 at 12:57; Stop 03/05/20 at 12:57; Status DC Albumin Human 500 ml @ As Directed STK-MED ONCE IV ; Start 03/05/20 at 13:08; Stop 03/05/20 at 13:08; Status DC Albumin Human 500 ml @ As Directed STK-MED ONCE IV ; Start 03/05/20 at 13:13; Stop 03/05/20 at 13:14; Status DC Phenylephrine HCl (Devin-Synephrine Inj) 10 mg STK-MED ONCE .ROUTE ; Start 03/05/20 at 13:35; Stop 03/05/20 at 13:35; Status DC Phenylephrine HCl (Devin-Synephrine Inj) 10 mg STK-MED ONCE .ROUTE ; Start 03/05/20 at 13:48; Stop 03/05/20 at 13:49; Status DC Sevoflurane (Ultane) 90 ml STK-MED ONCE IH ; Start 03/05/20 at 14:30; Stop 03/05/20 at 14:30; Status DC Phenylephrine HCl (Devin-Synephrine Inj) 10 mg STK-MED ONCE .ROUTE ; Start 03/05/20 at 14:35; Stop 03/05/20 at 14:36; Status DC Midazolam HCl 100 mg/Sodium Chloride 100 ml @ 1 mls/hr CONT PRN IV SEE I/O RECORD Last administered on 03/09/20at 10:04; Start 03/05/20 at 15:15 Fentanyl Citrate 30 ml @ 2.5 mls/hr CONT PRN PRN IV PER PROTOCOL Last administered on 03/09/20at 10:06; Start 03/05/20 at 15:15 Naloxone HCl (Narcan) 0.4 mg PRN Q2MIN PRN IV SEE INSTRUCTIONS; Start 03/05/20 at 15:15; Stop 03/06/20 at 09:45; Status DC Sodium Chloride 1,000 ml @ 25 mls/hr Q24H IV ; Start 03/05/20 at 15:13; Stop 03/06/20 at 14:24; Status DC Norepinephrine Bitartrate 8 mg/ Dextrose 258 ml @ 15.287 mls/ hr CONT PRN IV PER PROTOCOL Last administered on 03/08/20at 11:23; Start 03/05/20 at 15:30 Enoxaparin Sodium (Lovenox 40mg Syringe) 40 mg Q24H SQ Last administered on 03/09/20at 09:01; Start 03/06/20 at 08:00 Sodium Chloride (Normal Saline Flush) 3 ml QSHIFT PRN IV AFTER MEDS AND BLOOD DRAWS; Start 03/05/20 at 16:15 Ringer's Solution 1,000 ml @ 100 mls/hr Q10H IV Last administered on 03/08/20at 11:19; Start 03/05/20 at 16:09; Stop 03/08/20 at 18:54; Status DC Naloxone HCl (Narcan) 0.4 mg PRN Q2MIN PRN IV SEE INSTRUCTIONS; Start 03/05/20 at 16:15 Sodium Chloride 1,000 ml @ 25 mls/hr Q24H IV ; Start 03/05/20 at 16:09; Stop 03/06/20 at 14:24; Status DC Morphine Sulfate 30 ml @ 0 mls/hr CONT PRN PRN IV PER PROTOCOL; Start 03/05/20 at 16:15; Stop 03/06/20 at 09:48; Status DC Ondansetron HCl (Zofran) 4 mg PRN Q6HRS PRN IVP NAUESA, 1ST CHOICE; Start 03/05/20 at 16:15 Piperacillin Sod/ Tazobactam Sod 3.375 gm/Sodium Chloride 50 ml @ 100 mls/hr Q6HRS IV Last administered on 03/09/20at 05:26; Start 03/05/20 at 17:00 Ringer's Solution 1,000 ml @ 999 mls/hr 1X ONCE IV Last administered on 03/05/20at 20:59; Start 03/05/20 at 20:00; Stop 03/05/20 at 21:00; Status DC Vasopressin 20 unit/Dextrose 101 ml @ 12 mls/hr CONT PRN IV SEE I/O RECORD Last administered on 03/09/20at 10:01; Start 03/05/20 at 20:00 Ringer's Solution 1,000 ml @ 999 mls/hr 1X ONCE IV Last administered on 03/06/20at 01:07; Start 03/06/20 at 01:00; Stop 03/06/20 at 02:00; Status DC Ringer's Solution 1,000 ml @ 999 mls/hr 1X ONCE IV Last administered on 03/06/20at 05:18; Start 03/06/20 at 05:00; Stop 03/06/20 at 06:00; Status DC Ringer's Solution 1,000 ml @ 999 mls/hr 1X ONCE IV Last administered on 03/06/20at 09:54; Start 03/06/20 at 09:45; Stop 03/06/20 at 10:45; Status DC Ringer's Solution 1,000 ml @ 999 mls/hr 1X ONCE IV Last administered on 03/06/20at 13:40; Start 03/06/20 at 13:45; Stop 03/06/20 at 14:45; Status DC Ringer's Solution 1,000 ml @ 999 mls/hr 1X ONCE IV Last administered on 03/06/20at 18:43; Start 03/06/20 at 18:15; Stop 03/06/20 at 19:15; Status DC Sodium Chloride 200 ml @ 50 mls/hr 1X ONCE IV Last administered on 03/07/20at 13:49; Start 03/07/20 at 13:30; Stop 03/07/20 at 17:29; Status DC Potassium Phosphate 13.6 mmol/Sodium Chloride 254.5333 ml @ 62.5 mls/hr Q4H IV Last administered on 03/08/20at 16:52; Start 03/08/20 at 08:30; Stop 03/08/20 at 20:29; Status DC Magnesium Sulfate 50 ml @ 25 mls/hr 1X ONCE IV Last administered on 03/08/20at 08:00; Start 03/08/20 at 08:00; Stop 03/08/20 at 09:59; Status DC Sodium Chloride 300 ml @ 50 mls/hr 1X ONCE IV Last administered on 03/08/20at 08:00; Start 03/08/20 at 08:00; Stop 03/08/20 at 13:59; Status DC Info (Tpn Per Pharmacy) 1 each PRN DAILY PRN MC SEE COMMENTS Last administered on 03/09/20at 09:51; Start 03/08/20 at 11:00 Sodium Chloride 100 meq/Potassium Chloride 50 meq/ Potassium Phosphate 18 mmol/ Magnesium Sulfate 15 meq/Calcium Gluconate 10 meq/ Multivitamins 10 ml/Chromium/ Copper/Manganese/ Seleni/Zn 1 ml/ Total Parenteral Nutrition/Amino Acids/Dextrose/ Fat Emulsion Intravenous 1,512 ml @ 63 mls/hr TPN CONT IV ; Start 03/08/20 at 22:00; Stop 03/08/20 at 11:31; Status DC Sodium Chloride 100 meq/Potassium Chloride 50 meq/ Potassium Phosphate 18 mmol/ Magnesium Sulfate 15 meq/Calcium Gluconate 10 meq/ Multivitamins 10 ml/Chromium/ Copper/Manganese/ Seleni/Zn 1 ml/ Total Parenteral Nutrition/Amino Acids/Dextrose/ Fat Emulsion Intravenous 1,920 ml @ 80 mls/hr TPN CONT IV Last administered on 03/08/20at 23:04; Start 03/08/20 at 22:00; Stop 03/09/20 at 21:59 Potassium Chloride/Water 100 ml @ 100 mls/hr 1X ONCE IV Last administered on 03/08/20at 15:51; Start 03/08/20 at 16:00; Stop 03/08/20 at 16:59; Status DC Sodium Chloride 100 meq/Potassium Chloride 50 meq/ Potassium Phosphate 18 mmol/ Magnesium Sulfate 15 meq/Calcium Gluconate 10 meq/ Multivitamins 10 ml/Chromium/ Copper/Manganese/ Seleni/Zn 1 ml/ Total Parenteral Nutrition/Amino Acids/Dextrose/ Fat Emulsion Intravenous 1,920 ml @ 80 mls/hr TPN CONT IV ; Start 03/09/20 at 22:00; Stop 03/10/20 at 21:59 Active Scripts Active Reported Flomax (Tamsulosin Hcl) 0.4 Mg Cap.er.24h 1 Cap PO QHS Vitals/I & O Vital Sign - Last 24 Hours 03/08/20 03/08/20 03/08/20 03/08/20 14:00 14:25 15:00 15:42 Pulse 53 72 Resp 16 16 16 B/P (MAP) 113/56 (75) 120/62 (81) Pulse Ox 100 100 100 100 O2 Delivery Ventilator Ventilator Ventilator Ventilator 03/08/20 03/08/20 03/08/20 03/08/20 16:00 16:00 16:00 17:00 Temp 97.5 97.5 Pulse 60 54 Resp 16 16 B/P (MAP) 120/60 (80) 90/48 (62) Pulse Ox 100 100 O2 Delivery Mechanical Ventilator Ventilator Ventilator 03/08/20 03/08/20 03/08/20 03/08/20 17:15 17:55 18:00 18:25 Temp 97.7 97.7 Pulse 86 75 Resp 16 16 16 B/P (MAP) 88/52 (64) 92/54 Pulse Ox 100 100 100 O2 Delivery Ventilator Ventilator Ventilator 03/08/20 03/08/20 03/08/20 03/08/20 18:28 18:40 19:00 20:00 Temp 97.3 97.3 Pulse 65 77 Resp 16 16 16 B/P (MAP) 92/58 123/61 (81) Pulse Ox 100 100 O2 Delivery Ventilator Ventilator 03/08/20 03/08/20 03/08/20 03/08/20 20:00 20:00 20:07 21:00 Temp 97.1 97.1 Pulse 63 59 Resp 16 16 B/P (MAP) 118/68 (85) 105/52 (69) Pulse Ox 100 100 100 O2 Delivery Ventilator Mechanical Ventilator Ventilator Ventilator 03/08/20 03/08/20 03/08/20 03/08/20 22:00 23:00 23:03 23:55 Pulse 51 63 Resp 16 16 16 B/P (MAP) 118/61 (80) 124/73 (90) Pulse Ox 100 100 100 100 O2 Delivery Ventilator Ventilator Ventilator Ventilator 03/09/20 03/09/20 03/09/20 03/09/20 00:01 00:01 00:01 01:00 Temp 97.8 97.8 Pulse 52 75 Resp 16 16 B/P (MAP) 120/62 (81) 130/72 (91) Pulse Ox 100 100 O2 Delivery Mechanical Ventilator Ventilator Ventilator 03/09/20 03/09/20 03/09/20 03/09/20 02:00 03:00 03:45 04:00 Temp 98.5 98.5 Pulse 79 83 87 Resp 16 23 26 B/P (MAP) 111/75 (87) 114/63 (80) 118/64 (82) Pulse Ox 100 100 100 100 O2 Delivery Ventilator Ventilator Ventilator Ventilator 03/09/20 03/09/20 03/09/20 03/09/20 04:00 04:00 05:00 05:25 Pulse 86 Resp 25 17 B/P (MAP) 132/72 (92) Pulse Ox 100 100 O2 Delivery Mechanical Ventilator Ventilator Ventilator 03/09/20 03/09/20 03/09/20 03/09/20 06:00 07:00 07:15 07:30 Pulse 51 50 48 62 Resp 25 16 16 16 B/P (MAP) 104/55 (71) 98/56 (70) 106/66 (79) 124/60 (81) Pulse Ox 100 100 100 100 O2 Delivery Ventilator Ventilator Ventilator Ventilator 03/09/20 03/09/20 03/09/20 03/09/20 07:45 07:51 08:00 08:00 Temp 98.0 98.0 Pulse 60 62 Resp 16 16 B/P (MAP) 110/60 (77) 112/60 (77) Pulse Ox 100 100 100 O2 Delivery Ventilator Ventilator Mechanical Ventilator Ventilator 03/09/20 03/09/20 03/09/20 03/09/20 08:00 09:00 10:00 10:06 Pulse 72 79 66 Resp 16 16 B/P (MAP) 118/73 (88) 114/60 (78) Pulse Ox 100 100 100 O2 Delivery Ventilator Ventilator Ventilator 03/09/20 03/09/20 03/09/20 03/09/20 10:55 11:00 12:00 12:00 Temp 97.2 97.2 Pulse 74 54 Resp 16 12 B/P (MAP) 104/58 (73) 106/56 (73) Pulse Ox 100 100 100 O2 Delivery Ventilator Ventilator Ventilator Mechanical Ventilator Intake and Output 03/08/20 03/08/20 03/09/20 14:59 22:59 06:59 Intake Total 725 ml 1457.68 ml Output Total 395 ml 495 ml 710 ml Balance 330 ml 962.68 ml -710 ml Problem List Problems Medical Problems: (1) Anemia Status: Acute (2) Colonic mass Status: Acute (3) Fatigue Status: Acute (4) Hypocalcemia Status: Acute (5) Nausea & vomiting Status: Acute (6) SBO (small bowel obstruction) Status: Acute Assessment Colon cancer-s/p resection, await resolution of post-op ileus prior to advancing diet, on TPN, wenaing per pulmonary Justicifation of Admission Dx: Justifications for Admission: Justification of Admission Dx: Yes MAXINE HAMLIN MD Mar 09, 2020 13:23
--- NOTE | 2020-03-09 15:54 | PDOC ---
PROGRESS NOTES Chief Complaint Chief Complaint nause and vomiting with abd pain Fatigue Weight Loss Small bowel dilatation/obstruction suspicious for primary colon cancer 10.5cm mass with surrounding lymph nodes concerning for metastatic disease 10.5 cm colonic mass. Colonic mass abuts the right hepatic lobe inferior margin as well as the duodenum and anterior right kidney (extending through or deforming Gerota's fascia), suspicious for primary colon cancer. Prominent associated lymph nodes are seen, possibly metastatic Obstructing right colon cancer Dialated Appendix fatty liver dz Gallstones Microcytic Anemia Alkaline Phosphatemia Hyponatremia Mild Leukocytosis Tachycardia H/o prostate cancer in remission Severe protein calorie malnutrition LE edema - BNP of 350, no cardiac history and no symptoms of CHF. This is unlikely to be cardiac related at all. Likely likely lymphatic obstruction due to abdominal mass. Hyponatremia - likely due to poor PO intake, SERUM OSMOLALITY PENDING HYPOTENSION, POSSIBLE SEPSIS NPO vent support post=op s/p open right colon POD # 1 remains critically ill 38 min cc time History of Present Illness History of Present Illness still on IV meds for blood pressure septic and shock cont current Vitals Vitals Vital Signs Date Time Temp Pulse Resp B/P (MAP) Pulse Ox O2 Delivery O2 Flow Rate FiO2 03/09/20 15:33 100 Ventilator 03/09/20 15:00 72 12 101/ 03/09/20 12:00 97.2 97.2 Physical Exam Physical Exam SEDATED ON VENT General: Other (Sedated on ventilator) Heart: Regular rate Lungs: Clear Abdomen: Soft, Other (Wounds clean dry and intact AVI drain with serous drainage duodenal drain with some bilious drainage minimal) Extremities: Other (Mild edema) Skin: No significant lesion Labs LABS Laboratory Tests Test 03/08/20 16:15 03/09/20 05:30 03/09/20 08:00 Hemoglobin 7.0 g/dL (13.0-17.5) 8.0 g/dL (13.0-17.5) Hematocrit 21.4 % (39.0-53.0) 24.3 % (39.0-53.0) Mean Corpuscular Hemoglobin Concent 33 g/dL (31-37) 33 g/dL (31-37) White Blood Count 9.4 x10^3/uL (4.0-11.0) Red Blood Count 3.14 x10^6/uL (4.30-5.70) Mean Corpuscular Volume 78 fL (79-100) Mean Corpuscular Hemoglobin 25 pg (25-35) Red Cell Distribution Width 28.5 % (11.5-14.5) Platelet Count 156 x10^3/uL (140-400) Sodium Level 131 mmol/L (136-145) Potassium Level 3.5 mmol/L (3.5-5.1) Chloride Level 103 mmol/L (98-107) Carbon Dioxide Level 24 mmol/L (21-32) Anion Gap 4 (6-14) Blood Urea Nitrogen 16 mg/dL (8-26) Creatinine 0.5 mg/dL (0.7-1.3) Estimated GFR (Cockcroft-Gault) 163.9 Glucose Level 142 mg/dL (70-99) Calcium Level 6.3 mg/dL (8.5-10.1) Phosphorus Level 2.4 mg/dL (2.6-4.7) Magnesium Level 1.9 mg/dL (1.8-2.4) O2 Saturation 98 % (92-99) Arterial Blood pH 7.47 (7.35-7.45) Arterial Blood pCO2 at Patient Temp 28 mmHg (35-46) Arterial Blood pO2 at Patient Temp 126 mmHg (65-108) Arterial Blood HCO3 20 mmol/L (21-28) Arterial Blood Base Excess -3 mmol/L (-3-3) FiO2 40%+% Assessment and Plan Assessmemt and Plan Problems Medical Problems: (1) Anemia Status: Acute (2) Colonic mass Status: Acute (3) Fatigue Status: Acute (4) Hypocalcemia Status: Acute (5) Nausea & vomiting Status: Acute (6) SBO (small bowel obstruction) Status: Acute Comment Review of Relevant I have reviewed the following items radhames (where applicable) has been applied. Labs Laboratory Tests Test 03/08/20 05:40 03/08/20 08:00 03/08/20 16:15 03/09/20 05:30 White Blood Count 10.7 x10^3/uL (4.0-11.0) 9.4 x10^3/uL (4.0-11.0) Red Blood Count 2.87 x10^6/uL (4.30-5.70) 3.14 x10^6/uL (4.30-5.70) Hemoglobin 7.1 g/dL (13.0-17.5) 7.0 g/dL (13.0-17.5) 8.0 g/dL (13.0-17.5) Hematocrit 21.6 % (39.0-53.0) 21.4 % (39.0-53.0) 24.3 % (39.0-53.0) Mean Corpuscular Volume 75 fL (79-100) 78 fL (79-100) Mean Corpuscular Hemoglobin 25 pg (25-35) 25 pg (25-35) Mean Corpuscular Hemoglobin Concent 33 g/dL (31-37) 33 g/dL (31-37) 33 g/dL (31-37) Red Cell Distribution Width 30.3 % (11.5-14.5) 28.5 % (11.5-14.5) Platelet Count 179 x10^3/uL (140-400) 156 x10^3/uL (140-400) Sodium Level 128 mmol/L (136-145) 131 mmol/L (136-145) Potassium Level 3.0 mmol/L (3.5-5.1) 3.5 mmol/L (3.5-5.1) Chloride Level 98 mmol/L (98-107) 103 mmol/L (98-107) Carbon Dioxide Level 25 mmol/L (21-32) 24 mmol/L (21-32) Anion Gap 5 (6-14) 4 (6-14) Blood Urea Nitrogen 22 mg/dL (8-26) 16 mg/dL (8-26) Creatinine 0.6 mg/dL (0.7-1.3) 0.5 mg/dL (0.7-1.3) Estimated GFR (Cockcroft-Gault) 132.8 163.9 Glucose Level 91 mg/dL (70-99) 142 mg/dL (70-99) Calcium Level 5.9 mg/dL (8.5-10.1) 6.3 mg/dL (8.5-10.1) Phosphorus Level 1.6 mg/dL (2.6-4.7) 2.4 mg/dL (2.6-4.7) Magnesium Level 1.5 mg/dL (1.8-2.4) 1.9 mg/dL (1.8-2.4) Albumin 0.8 g/dL (3.4-5.0) O2 Saturation 97 % (92-99) Arterial Blood pH 7.48 (7.35-7.45) Arterial Blood pCO2 at Patient Temp 30 mmHg (35-46) Arterial Blood pO2 at Patient Temp 109 mmHg (65-108) Arterial Blood HCO3 22 mmol/L (21-28) Arterial Blood Base Excess -2 mmol/L (-3-3) FiO2 40 Test 03/09/20 08:00 O2 Saturation 98 % (92-99) Arterial Blood pH 7.47 (7.35-7.45) Arterial Blood pCO2 at Patient Temp 28 mmHg (35-46) Arterial Blood pO2 at Patient Temp 126 mmHg (65-108) Arterial Blood HCO3 20 mmol/L (21-28) Arterial Blood Base Excess -3 mmol/L (-3-3) FiO2 40%+% Laboratory Tests Test 03/08/20 16:15 03/09/20 05:30 03/09/20 08:00 Hemoglobin 7.0 g/dL (13.0-17.5) 8.0 g/dL (13.0-17.5) Hematocrit 21.4 % (39.0-53.0) 24.3 % (39.0-53.0) Mean Corpuscular Hemoglobin Concent 33 g/dL (31-37) 33 g/dL (31-37) White Blood Count 9.4 x10^3/uL (4.0-11.0) Red Blood Count 3.14 x10^6/uL (4.30-5.70) Mean Corpuscular Volume 78 fL (79-100) Mean Corpuscular Hemoglobin 25 pg (25-35) Red Cell Distribution Width 28.5 % (11.5-14.5) Platelet Count 156 x10^3/uL (140-400) Sodium Level 131 mmol/L (136-145) Potassium Level 3.5 mmol/L (3.5-5.1) Chloride Level 103 mmol/L (98-107) Carbon Dioxide Level 24 mmol/L (21-32) Anion Gap 4 (6-14) Blood Urea Nitrogen 16 mg/dL (8-26) Creatinine 0.5 mg/dL (0.7-1.3) Estimated GFR (Cockcroft-Gault) 163.9 Glucose Level 142 mg/dL (70-99) Calcium Level 6.3 mg/dL (8.5-10.1) Phosphorus Level 2.4 mg/dL (2.6-4.7) Magnesium Level 1.9 mg/dL (1.8-2.4) O2 Saturation 98 % (92-99) Arterial Blood pH 7.47 (7.35-7.45) Arterial Blood pCO2 at Patient Temp 28 mmHg (35-46) Arterial Blood pO2 at Patient Temp 126 mmHg (65-108) Arterial Blood HCO3 20 mmol/L (21-28) Arterial Blood Base Excess -3 mmol/L (-3-3) FiO2 40%+% Microbiology 03/02/20 Urine Culture - Final, Complete Medications Current Medications Sodium Chloride 1,000 ml @ 1,000 mls/hr 1X ONCE IV Last administered on 03/02/20at 17:05; Start 03/02/20 at 16:45; Stop 03/02/20 at 17:44; Status DC Calcium Gluconate (Calcium Gluconate) 1,000 mg 1X ONCE IVP Last administered on 03/02/20at 18:21; Start 03/02/20 at 18:15; Stop 03/02/20 at 18:18; Status DC Iohexol (Omnipaque 300 Mg/ml) 75 ml 1X ONCE IV Last administered on 03/02/20at 18:34; Start 03/02/20 at 18:30; Stop 03/02/20 at 18:31; Status DC Pantoprazole Sodium (PROTONIX VIAL for IV PUSH) 40 mg 1X ONCE IVP Last administered on 03/02/20at 18:41; Start 03/02/20 at 18:45; Stop 03/02/20 at 18:46; Status DC Sodium Chloride 1,000 ml @ 100 mls/hr 1X ONCE IV Last administered on 03/02/20at 19:04; Start 03/02/20 at 18:45; Stop 03/03/20 at 04:44; Status DC Enoxaparin Sodium (Lovenox Per Pharmacy Prophylaxis Dosing) 1 each PRN DAILY PRN MC SEE COMMENTS; Start 03/02/20 at 20:30; Status Cancel Enoxaparin Sodium (Lovenox 40mg Syringe) 40 mg Q24H SQ Last administered on 03/02/20at 23:48; Start 03/02/20 at 21:00; Stop 03/03/20 at 08:48; Status DC Tamsulosin HCl (Flomax) 0.4 mg HS PO Last administered on 03/04/20at 21:03; Start 03/02/20 at 23:45 Sodium Chloride 1,000 ml @ 100 mls/hr Q10H IV Last administered on 03/03/20at 11:07; Start 03/03/20 at 10:00; Stop 03/03/20 at 14:58; Status DC Ondansetron HCl (Zofran) 4 mg PRN Q4HRS PRN IV NAUSEA/VOMITING Last administered on 03/04/20at 22:31; Start 03/03/20 at 09:45; Stop 03/05/20 at 16:15; Status DC Acetaminophen (Tylenol Supp) 650 mg PRN Q4HRS PRN NM TEMP OVER 100.4F OR MILD PAIN; Start 03/03/20 at 09:45 Polyethylene Glycol (miraLAX PACKET) 17 gm DAILY PO Last administered on 03/04/20at 09:21; Start 03/03/20 at 10:00; Stop 03/06/20 at 10:25; Status DC Bisacodyl (Dulcolax Supp) 10 mg PRN DAILY PRN NM CONSTIPATION; Start 03/03/20 at 09:45; Stop 03/06/20 at 10:25; Status DC Bisacodyl (Dulcolax Tab) 10 mg PRN DAILY PRN PO CONSTIPATION Last administered on 03/03/20at 13:47; Start 03/03/20 at 09:45; Stop 03/06/20 at 10:25; Status DC Psyllium Hydrophilic Mucilloid (Metamucil Fiber Packet) 1 pkt QHS PO Last administered on 03/04/20 21:03; Start 03/03/20 at 21:00; Stop 03/06/20 at 10:25; Status DC Polyethylene Glycol (miraLAX PACKET) 17 gm QHS PO Last administered on 03/04/20at 21:03; Start 03/03/20 at 21:00; Stop 03/06/20 at 10:25; Status DC Docusate Sodium (Colace) 100 mg DAILY PO Last administered on 03/04/20at 09:21; Start 03/03/20 at 12:00; Stop 03/06/20 at 10:25; Status DC Amino Acids/ Glycerin/ Electrolytes 1,000 ml @ 80 mls/hr [id number] IV Last administered on 03/07/20at 02:41; Start 03/03/20 at 15:00; Stop 03/07/20 at 13:22; Status DC Furosemide (Lasix) 40 mg 1X ONCE IVP Last administered on 03/03/20at 16:48; Start 03/03/20 at 15:00; Stop 03/03/20 at 15:01; Status DC Iohexol (Omnipaque 300 Mg/ml) 75 ml 1X ONCE IV Last administered on 03/03/20at 16:33; Start 03/03/20 at 16:15; Stop 03/03/20 at 16:16; Status DC Info (CONTRAST GIVEN -- Rx MONITORING) 1 each PRN DAILY PRN MC SEE COMMENTS; Start 03/03/20 at 16:15; Stop 03/05/20 at 16:15; Status DC Bisacodyl (Dulcolax Supp) 10 mg 1X ONCE NM Last administered on 03/04/20at 12:18; Start 03/04/20 at 10:00; Stop 03/04/20 at 10:05; Status DC Cefoxitin Sodium (Mefoxin) 2 gm 1X PREOP IVP Last administered on 03/05/20at 13:09; Start 03/05/20 at 10:00; Stop 03/08/20 at 11:05; Status DC Lidocaine (Lidoderm) 1 patch DAILY TD ; Start 03/04/20 at 16:30; Status Cancel Miscellaneous (Lidoderm Patch Removal) [address] [facility] ; Start 03/04/20 at 21:00; Status Cancel Ondansetron HCl (Zofran) 4 mg PRN Q6HRS PRN IVP NAUSEA/VOMITING; Start 03/05/20 at 07:15; Stop 03/05/20 at 20:00; Status DC Fentanyl Citrate (Fentanyl 2ml Vial) 25 mcg PRN Q5MIN PRN IVP MILD PAIN 1-3; Start 03/05/20 at 07:15; Stop 03/05/20 at 20:00; Status DC Fentanyl Citrate (Fentanyl 2ml Vial) 50 mcg PRN Q5MIN PRN IVP MODERATE TO SEVERE PAIN; Start 03/05/20 at 07:15; Stop 03/05/20 at 20:00; Status DC Morphine Sulfate (Morphine Sulfate) 1 mg PRN Q10MIN PRN IVP SEVERE PAIN 7-10; Start 03/05/20 at 07:15; Stop 03/05/20 at 20:00; Status DC Ringer's Solution 1,000 ml @ 30 mls/hr Q24H IV Last administered on 03/05/20at 09:59; Start 03/05/20 at 07:05; Stop 03/05/20 at 19:04; Status DC Lidocaine HCl (Xylocaine-Mpf 1% 2ml Vial) 2 ml 1X PRN PRN ID IV START; Start 03/05/20 at 07:15; Stop 03/05/20 at 20:00; Status DC Hydromorphone HCl (Dilaudid) 0.5 mg PRN Q10MIN PRN IVP SEV PAIN, Second choice; Start 03/05/20 at 07:15; Stop 03/05/20 at 20:00; Status DC Prochlorperazine Edisylate (Compazine) 5 mg PACU PRN PRN IVP NAUSEA, MRX1; Start 03/05/20 at 07:15; Stop 03/06/20 at 07:14; Status DC Pantoprazole Sodium (PROTONIX VIAL for IV PUSH) 40 mg DAILYAC IVP Last admin istered on 03/09/20at 09:00; Start 03/05/20 at 10:30 Propofol (Diprivan) 200 mg STK-MED ONCE IV ; Start 03/05/20 at 10:23; Stop at 10:23; Status DC Lidocaine HCl (Lidocaine Pf 2% Vial) 5 ml STK-MED ONCE .ROUTE ; Start 03/05/20 at 10:23; Stop 03/05/20 at 10:23; Status DC Ondansetron HCl (Zofran) 4 mg STK-MED ONCE .ROUTE ; Start 03/05/20 at 10:23; Stop 03/05/20 at 10:23; Status DC Dexamethasone Sodium Phosphate (Decadron) 4 mg STK-MED ONCE .ROUTE ; Start 03/05/20 at 10:23; Stop 03/05/20 at 10:23; Status DC Succinylcholine Chloride (Anectine) 200 mg STK-MED ONCE .ROUTE ; Start 03/05/20 at 10:23; Stop 03/05/20 at 10:23; Status DC Rocuronium Newton (Zemuron) 50 mg STK-MED ONCE .ROUTE ; Start 03/05/20 at 10:24; Stop 03/05/20 at 10:24; Status DC Fentanyl Citrate (Fentanyl 2ml Vial) 100 mcg STK-MED ONCE .ROUTE ; Start 03/05/20 at 10:24; Stop 03/05/20 at 10:24; Status DC Iohexol (Omnipaque 300 Mg/ml) 50 ml STK-MED ONCE .ROUTE Last administered on 03/05/20at 11:43; Start 03/05/20 at 10:41; Stop 03/05/20 at 10:41; Status DC Bupivacaine HCl/ Epinephrine Bitart (Sensorcain-Epi 0.5%-1:[id number] Mpf) 30 ml STK-MED ONCE .ROUTE ; Start 03/05/20 at 10:42; Stop 03/05/20 at 10:42; Status DC Phenylephrine HCl (PHENYLEPHRINE in 0.9% NACL PF) 1 mg STK-MED ONCE IV ; Start 03/05/20 at 12:13; Stop 03/05/20 at 12:14; Status DC Ephedrine Sulfate (ePHEDrine PF IN SALINE SYRINGE) 50 mg STK-MED ONCE IV ; Start 03/05/20 at 12:13; Stop 03/05/20 at 12:14; Status DC Phenylephrine HCl (Devin-Synephrine Inj) 10 mg STK-MED ONCE .ROUTE ; Start 03/05/20 at 12:15; Stop 03/05/20 at 12:15; Status DC Rocuronium Newton (Zemuron) 50 mg STK-MED ONCE .ROUTE ; Start 03/05/20 at 12:27; Stop 03/05/20 at 12:27; Status DC Cefoxitin Sodium (Mefoxin) 1 gm STK-MED ONCE IVP ; Start 03/05/20 at 12:57; Stop 03/05/20 at 12:57; Status DC Albumin Human 500 ml @ As Directed STK-MED ONCE IV ; Start 03/05/20 at 13:08; Stop 03/05/20 at 13:08; Status DC Albumin Human 500 ml @ As Directed STK-MED ONCE IV ; Start 03/05/20 at 13:13; Stop 03/05/20 at 13:14; Status DC Phenylephrine HCl (Devin-Synephrine Inj) 10 mg STK-MED ONCE .ROUTE ; Start 03/05/20 at 13:35; Stop 03/05/20 at 13:35; Status DC Phenylephrine HCl (Devin-Synephrine Inj) 10 mg STK-MED ONCE .ROUTE ; Start 03/05/20 at 13:48; Stop 03/05/20 at 13:49; Status DC Sevoflurane (Ultane) 90 ml STK-MED ONCE IH ; Start 03/05/20 at 14:30; Stop 03/05/20 at 14:30; Status DC Phenylephrine HCl (Devin-Synephrine Inj) 10 mg STK-MED ONCE .ROUTE ; Start 03/05/20 at 14:35; Stop 03/05/20 at 14:36; Status DC Midazolam HCl 100 mg/Sodium Chloride 100 ml @ 1 mls/hr CONT PRN IV SEE I/O RECORD Last administered on 03/09/20at 10:04; Start 03/05/20 at 15:15 Fentanyl Citrate 30 ml @ 2.5 mls/hr CONT PRN PRN IV PER PROTOCOL Last administered on 03/09/20at 10:06; Start 03/05/20 at 15:15 Naloxone HCl (Narcan) 0.4 mg PRN Q2MIN PRN IV SEE INSTRUCTIONS; Start 03/05/20 at 15:15; Stop 03/06/20 at 09:45; Status DC Sodium Chloride 1,000 ml @ 25 mls/hr Q24H IV ; Start 03/05/20 at 15:13; Stop 03/06/20 at 14:24; Status DC Norepinephrine Bitartrate 8 mg/ Dextrose 258 ml @ 15.287 mls/ hr CONT PRN IV PER PROTOCOL Last administered on 03/08/20at 11:23; Start 03/05/20 at 15:30 Enoxaparin Sodium (Lovenox 40mg Syringe) 40 mg Q24H SQ Last administered on 03/09/20at 09:01; Start 03/06/20 at 08:00 Sodium Chloride (Normal Saline Flush) 3 ml QSHIFT PRN IV AFTER MEDS AND BLOOD DRAWS; Start 03/05/20 at 16:15 Ringer's Solution 1,000 ml @ 100 mls/hr Q10H IV Last administered on 03/08/20at 11:19; Start 03/05/20 at 16:09; Stop 03/08/20 at 18:54; Status DC Naloxone HCl (Narcan) 0.4 mg PRN Q2MIN PRN IV SEE INSTRUCTIONS; Start 03/05/20 at 16:15 Sodium Chloride 1,000 ml @ 25 mls/hr Q24H IV ; Start 03/05/20 at 16:09; Stop 03/06/20 at 14:24; Status DC Morphine Sulfate 30 ml @ 0 mls/hr CONT PRN PRN IV PER PROTOCOL; Start 03/05/20 at 16:15; Stop 03/06/20 at 09:48; Status DC Ondansetron HCl (Zofran) 4 mg PRN Q6HRS PRN IVP NAUESA, 1ST CHOICE; Start 03/05/20 at 16:15 Piperacillin Sod/ Tazobactam Sod 3.375 gm/Sodium Chloride 50 ml @ 100 mls/hr Q6HRS IV Last administered on 03/09/20at 05:26; Start 03/05/20 at 17:00 Ringer's Solution 1,000 ml @ 999 mls/hr 1X ONCE IV Last administered on 03/05/20at 20:59; Start 03/05/20 at 20:00; Stop 03/05/20 at 21:00; Status DC Vasopressin 20 unit/Dextrose 101 ml @ 12 mls/hr CONT PRN IV SEE I/O RECORD Last administered on 03/09/20at 10:01; Start 03/05/20 at 20:00 Ringer's Solution 1,000 ml @ 999 mls/hr 1X ONCE IV Last administered on 03/06/20at 01:07; Start 03/06/20 at 01:00; Stop 03/06/20 at 02:00; Status DC Ringer's Solution 1,000 ml @ 999 mls/hr 1X ONCE IV Last administered on 03/06/20at 05:18; Start 03/06/20 at 05:00; Stop 03/06/20 at 06:00; Status DC Ringer's Solution 1,000 ml @ 999 mls/hr 1X ONCE IV Last administered on 03/06/20at 09:54; Start 03/06/20 at 09:45; Stop 03/06/20 at 10:45; Status DC Ringer's Solution 1,000 ml @ 999 mls/hr 1X ONCE IV Last administered on 03/06/20at 13:40; Start 03/06/20 at 13:45; Stop 03/06/20 at 14:45; Status DC Ringer's Solution 1,000 ml @ 999 mls/hr 1X ONCE IV Last administered on 03/06/20at 18:43; Start 03/06/20 at 18:15; Stop 03/06/20 at 19:15; Status DC Sodium Chloride 200 ml @ 50 mls/hr 1X ONCE IV Last administered on 03/07/20at 13:49; Start 03/07/20 at 13:30; Stop 03/07/20 at 17:29; Status DC Potassium Phosphate 13.6 mmol/Sodium Chloride 254.5333 ml @ 62.5 mls/hr Q4H IV Last administered on 03/08/20at 16:52; Start 03/08/20 at 08:30; Stop 03/08/20 at 20:29; Status DC Magnesium Sulfate 50 ml @ 25 mls/hr 1X ONCE IV Last administered on 03/08/20at 08:00; Start 03/08/20 at 08:00; Stop 03/08/20 at 09:59; Status DC Sodium Chloride 300 ml @ 50 mls/hr 1X ONCE IV Last administered on 03/08/20at 08:00; Start 03/08/20 at 08:00; Stop 03/08/20 at 13:59; Status DC Info (Tpn Per Pharmacy) 1 each PRN DAILY PRN MC SEE COMMENTS Last administered on 03/09/20at 09:51; Start 03/08/20 at 11:00 Sodium Chloride 100 meq/Potassium Chloride 50 meq/ Potassium Phosphate 18 mmol/ Magnesium Sulfate 15 meq/Calcium Gluconate 10 meq/ Multivitamins 10 ml/Chromium/ Copper/Manganese/ Seleni/Zn 1 ml/ Total Parenteral Nutrition/Amino A cids/Dextrose/ Fat Emulsion Intravenous 1,512 ml @ 63 mls/hr TPN CONT IV ; Start 03/08/20 at 22:00; Stop 03/08/20 at 11:31; Status DC Sodium Chloride 100 meq/Potassium Chloride 50 meq/ Potassium Phosphate 18 mmol/ Magnesium Sulfate 15 meq/Calcium Gluconate 10 meq/ Multivitamins 10 ml/Chromium/ Copper/Manganese/ Seleni/Zn 1 ml/ Total Parenteral Nutrition/Amino Acids/Dextrose/ Fat Emulsion Intravenous 1,920 ml @ 80 mls/hr TPN CONT IV Last administered on 03/08/20at 23:04; Start 03/08/20 at 22:00; Stop 03/09/20 at 21:59 Potassium Chloride/Water 100 ml @ 100 mls/hr 1X ONCE IV Last administered on 03/08/20at 15:51; Start 03/08/20 at 16:00; Stop 03/08/20 at 16:59; Status DC Sodium Chloride 100 meq/Potassium Chloride 50 meq/ Potassium Phosphate 18 mmol/ Magnesium Sulfate 15 meq/Calcium Gluconate 10 meq/ Multivitamins 10 ml/Chromium/ Copper/Manganese/ Seleni/Zn 1 ml/ Total Parenteral Nutrition/Amino Acids/Dextrose/ Fat Emulsion Intravenous 1,920 ml @ 80 mls/hr TPN CONT IV ; Start 03/09/20 at 22:00; Stop 03/10/20 at 21:59 Active Scripts Active Reported Flomax (Tamsulosin Hcl) 0.4 Mg Cap.er.24h 1 Cap PO QHS Vitals/I & O Vital Sign - Last 24 Hours 03/08/20 03/08/20 03/08/20 03/08/20 16:00 16:00 16:00 17:00 Temp 97.5 97.5 Pulse 60 54 Resp 16 16 B/P (MAP) 120/60 (80) 90/48 (62) Pulse Ox 100 100 O2 Delivery Mechanical Ventilator Ventilator Ventilator 03/08/20 03/08/20 03/08/20 03/08/20 17:15 17:55 18:00 18:25 Temp 97.7 97.7 Pulse 86 75 Resp 16 16 16 B/P (MAP) 88/52 (64) 92/54 Pulse Ox 100 100 100 O2 Delivery Ventilator Ventilator Ventilator 03/08/20 03/08/20 03/08/20 03/08/20 18:28 18:40 19:00 20:00 Temp 97.3 97.3 Pulse 65 77 Resp 16 16 16 B/P (MAP) 92/58 123/61 (81) Pulse Ox 100 100 O2 Delivery Ventilator Ventilator 03/08/20 03/08/20 03/08/20 03/08/20 20:00 20:00 20:07 21:00 Temp 97.1 97.1 Pulse 63 59 Resp 16 16 B/P (MAP) 118/68 (85) 105/52 (69) Pulse Ox 100 100 100 O2 Delivery Ventilator Mechanical Ventilator Ventilator Ventilator 03/08/20 03/08/20 03/08/20 03/08/20 22:00 23:00 23:03 23:55 Pulse 51 63 Resp 16 16 16 B/P (MAP) 118/61 (80) 124/73 (90) Pulse Ox 100 100 100 100 O2 Delivery Ventilator Ventilator Ventilator Ventilator 03/09/20 03/09/20 03/09/20 03/09/20 00:01 00:01 00:01 01:00 Temp 97.8 97.8 Pulse 52 75 Resp 16 16 B/P (MAP) 120/62 (81) 130/72 (91) Pulse Ox 100 100 O2 Delivery Mechanical Ventilator Ventilator Ventilator 03/09/20 03/09/20 03/09/20 03/09/20 02:00 03:00 03:45 04:00 Temp 98.5 98.5 Pulse 79 83 87 Resp 16 23 26 B/P (MAP) 111/75 (87) 114/63 (80) 118/64 (82) Pulse Ox 100 100 100 100 O2 Delivery Ventilator Ventilator Ventilator Ventilator 03/09/20 03/09/20 03/09/20 03/09/20 04:00 04:00 05:00 05:25 Pulse 86 Resp 25 17 B/P (MAP) 132/72 (92) Pulse Ox 100 100 O2 Delivery Mechanical Ventilator Ventilator Ventilator 03/09/20 03/09/20 03/09/20 03/09/20 06:00 07:00 07:15 07:30 Pulse 51 50 48 62 Resp 25 16 16 16 B/P (MAP) 104/55 (71) 98/56 (70) 106/66 (79) 124/60 (81) Pulse Ox 100 100 100 100 O2 Delivery Ventilator Ventilator Ventilator Ventilator 03/09/20 03/09/20 03/09/20 03/09/20 07:45 07:51 08:00 08:00 Temp 98.0 98.0 Pulse 60 62 Resp 16 16 B/P (MAP) 110/60 (77) 112/60 (77) Pulse Ox 100 100 100 O2 Delivery Ventilator Ventilator Mechanical Ventilator Ventilator 03/09/20 03/09/20 03/09/20 03/09/20 08:00 09:00 10:00 10:06 Pulse 72 79 66 Resp 16 16 B/P (MAP) 118/73 (88) 114/60 (78) Pulse Ox 100 100 100 O2 Delivery Ventilator Ventilator Ventilator 03/09/20 03/09/20 03/09/20 03/09/20 10:55 11:00 12:00 12:00 Temp 97.2 97.2 Pulse 74 54 Resp 16 12 B/P (MAP) 104/58 (73) 106/56 (73) Pulse Ox 100 100 100 O2 Delivery Ventilator Ventilator Ventilator Mechanical Ventilator 03/09/20 03/09/20 03/09/20 03/09/20 12:00 13:00 13:39 14:00 Pulse 82 76 Resp 12 12 B/P (MAP) 90/50 (63) 94/52 (66) Pulse Ox 100 100 100 O2 Delivery Ventilator Ventilator Ventilator 03/09/20 03/09/20 15:00 15:33 Pulse 72 Resp 12 B/P (MAP) 101/ Pulse Ox 100 100 O2 Delivery Ventilator Ventilator Intake and Output 03/08/20 03/08/20 03/09/20 15:00 23:00 07:00 Intake Total 725 ml 1457.68 ml 0 ml Output Total 395 ml 545 ml 685 ml Balance 330 ml 912.68 ml -685 ml Nutrition Consultation Dietary Evaluation: Recommendations by RD: Dietary education by RD, Increase Calorie Intake, PPN/TPN Comments: Continue w/TPN as ordered: 95 g AA, 220 g dextrose, 20 g lipids Expected Outcomes/Goals: New goal 03/07: TPN for nutrition needs if continued aggressive care desired - met, new goal established New goal 03/08: TPN to meet >65% est needs while intubated Malnutrition Findings: Food and Nutrition Intake (Mod: <75% est energy req 7days Weight Status: Appropriate Justicifation of Admission Dx: Justifications for Admission: Justification of Admission Dx: Yes MARLYS ENCARNACION MD Mar 09, 2020 15:53
[2020-03-09] MEDS: TAMSULOSIN 0.4 MG CAP.ER.24H. PO SCH (20:49)
[2020-03-09] MEDS ORDERED: DEXTROSE 70% IV SCH (22:00)
[2020-03-09] MEDS ORDERED: AMINO ACID IV SCH (22:00)
[2020-03-09] MEDS ORDERED: [UNRECOGNIZED DRUG - OTHER] IV SCH (22:00)
[2020-03-09] MEDS ORDERED: TOTAL PARENTERAL NUTRITION IV SCH (22:00)
[2020-03-10] VITALS (27 sets, daily range): BP systolic 81–147; BP diastolic 46–94
[2020-03-10] MEDS: VASOPRESSIN 20 UNIT in IV DEXTROSE 5% 100ML 100 ML IV PRN ×3 (04:57→21:40)
[2020-03-10] MEDS: MIDAZOLAM HCL IV PRN ×3 (06:15→16:20)
[2020-03-10] MEDS: PIPERACILLIN/TAZOBACTAM 3.375 GM in IV NORMAL SALINE 50ML 50 ML IV SCH ×3 (06:15→17:26)
[2020-03-10] MEDS: NORMAL SALINE IV PRN ×3 (06:15→16:20)
[2020-03-10 06:46] LABS: CREATININE 0.5 mg/dL (0.7-1.3); GFR 163.9; MAGNESIUM 1.9 mg/dL (1.8-2.4); PHOSPHORUS 2.3 mg/dL (2.6-4.7); POTASSIUM 3.8 mmol/L (3.5-5.1)
[2020-03-10 07:27] LABS: BASE EXCESS ABG -2 mmol/L (-3-3); HCO3 ABG 22 mmol/L (21-28); PCO2 ABG 36 mmHg (35-46); PO2 ABG 112 mmHg (65-108); SAT O2 ABG 97 % (92-99)
--- NOTE | 2020-03-10 07:30 | PDOC ---
PULMONARY PROGRESS NOTES Subjective Continues in A/C mode on Vent -- remains sedated, on norepinephrine, vasopressin Status post colon resection for obstructing colon cancer no new overnight concerns from nursing Vitals Vital Signs Date Time Temp Pulse Resp B/P (MAP) Pulse Ox O2 Delivery O2 Flow Rate FiO2 03/10/20 07:18 12 100 Ventilator 03/10/20 07:00 63 126/63 (84) 03/10/20 04:00 97.2 97.2 Comments intubated/sedated Lungs: Clear Cardiovascular: S1, S2 Abdomen: Other (Dressing in place, jace drain ) Extremities: No Edema Skin: Warm Labs Laboratory Tests Test 03/08/20 08:00 03/08/20 16:15 03/09/20 05:30 03/09/20 08:00 O2 Saturation 97 % (92-99) 98 % (92-99) Arterial Blood pH 7.48 (7.35-7.45) 7.47 (7.35-7.45) Arterial Blood pCO2 at Patient Temp 30 mmHg (35-46) 28 mmHg (35-46) Arterial Blood pO2 at Patient Temp 109 mmHg (65-108) 126 mmHg (65-108) Arterial Blood HCO3 22 mmol/L (21-28) 20 mmol/L (21-28) Arterial Blood Base Excess -2 mmol/L (-3-3) -3 mmol/L (-3-3) FiO2 40 40%+% Hemoglobin 7.0 g/dL (13.0-17.5) 8.0 g/dL (13.0-17.5) Hematocrit 21.4 % (39.0-53.0) 24.3 % (39.0-53.0) Mean Corpuscular Hemoglobin Concent 33 g/dL (31-37) 33 g/dL (31-37) White Blood Count 9.4 x10^3/uL (4.0-11.0) Red Blood Count 3.14 x10^6/uL (4.30-5.70) Mean Corpuscular Volume 78 fL (79-100) Mean Corpuscular Hemoglobin 25 pg (25-35) Red Cell Distribution Width 28.5 % (11.5-14.5) Platelet Count 156 x10^3/uL (140-400) Sodium Level 131 mmol/L (136-145) Potassium Level 3.5 mmol/L (3.5-5.1) Chloride Level 103 mmol/L (98-107) Carbon Dioxide Level 24 mmol/L (21-32) Anion Gap 4 (6-14) Blood Urea Nitrogen 16 mg/dL (8-26) Creatinine 0.5 mg/dL (0.7-1.3) Estimated GFR (Cockcroft-Gault) 163.9 Glucose Level 142 mg/dL (70-99) Calcium Level 6.3 mg/dL (8.5-10.1) Phosphorus Level 2.4 mg/dL (2.6-4.7) Magnesium Level 1.9 mg/dL (1.8-2.4) Test 03/10/20 06:15 Sodium Level 129 mmol/L (136-145) Potassium Level 3.8 mmol/L (3.5-5.1) Chloride Level 101 mmol/L (98-107) Carbon Dioxide Level 25 mmol/L (21-32) Anion Gap 3 (6-14) Blood Urea Nitrogen 16 mg/dL (8-26) Creatinine 0.5 mg/dL (0.7-1.3) Estimated GFR (Cockcroft-Gault) 163.9 Glucose Level 120 mg/dL (70-99) Calcium Level 6.0 mg/dL (8.5-10.1) Phosphorus Level 2.3 mg/dL (2.6-4.7) Magnesium Level 1.9 mg/dL (1.8-2.4) Laboratory Tests Test 03/09/20 08:00 03/10/20 06:15 O2 Saturation 98 % (92-99) Arterial Blood pH 7.47 (7.35-7.45) Arterial Blood pCO2 at Patient Temp 28 mmHg (35-46) Arterial Blood pO2 at Patient Temp 126 mmHg (65-108) Arterial Blood HCO3 20 mmol/L (21-28) Arterial Blood Base Excess -3 mmol/L (-3-3) FiO2 40%+% Sodium Level 129 mmol/L (136-145) Potassium Level 3.8 mmol/L (3.5-5.1) Chloride Level 101 mmol/L (98-107) Carbon Dioxide Level 25 mmol/L (21-32) Anion Gap 3 (6-14) Blood Urea Nitrogen 16 mg/dL (8-26) Creatinine 0.5 mg/dL (0.7-1.3) Estimated GFR (Cockcroft-Gault) 163.9 Glucose Level 120 mg/dL (70-99) Calcium Level 6.0 mg/dL (8.5-10.1) Phosphorus Level 2.3 mg/dL (2.6-4.7) Magnesium Level 1.9 mg/dL (1.8-2.4) Medications Active Scripts Medications Dose Route/Sig Max Daily Dose Days Date Category Flomax (Tamsulosin Hcl) 0.4 Mg Cap.er.24h 1 Cap PO QHS 03/02/20 Reported Comments CXR 03/08 Impression: 1. Interval placement of a left arm PICC. The tip of this catheter extends to overlie the SVC/right atrial junction. 2. Left lower lobe atelectasis and/ or infiltrate, unchanged. Impression . IMPRESSION: 1. Acute hypoxemic respiratory failure, expected status post surgical intervention for colonic mass. 2. Obstructing colonic cancer. 3. History of prostate cancer. 4. Severe protein malnutrition present upon admission. 5. Tobacco dependent. 6. Chronic obstructive pulmonary disease. 7. SARS-CoV-2 negative. 8. Cholelithiasis. 9. Hyponatremia. 10. Protein malnutrition, present upon admission. 11. Benign prostatic hypertrophy. 12. S/p open right colon resection, partial resection of duodenum, placement of duodenostomy tube, cholecystectomy, ghost ileostomy 13. Acute blood loss anemia 14. Respiratory alkalosis 15. Hypocalcemia-- correct calcium WNL Plan . Continue A/C mode, remains on pressors, not ready for weaning trial, follow CXR and ABG, make changes as needed Moitor HGB and transfuse per surgery. follow other surgery recs Follow nephrology recs COnt. vasopressors Cont. TPN for nutrition Empiric antibiotics DVT GI prophylaxis D/W RN and RT Total cumulative critical care time of 30 minutes reviewing data, labs, chest x-ray and formulating a plan. DOTTIE WILBURN MD Mar 10, 2020 07:30
[2020-03-10 07:33] LABS: FIO2 ABG 40
[2020-03-10 07:33] LABS: HEMATOCRIT 23.9 % (39.0-53.0); HEMOGLOBIN 7.6 g/dL (13.0-17.5); RED BLOOD COUNT 3.02 x10^6/uL (4.30-5.70); RED CELL DISTRIBUTION WIDTH 28.4 % (11.5-14.5); WHITE BLOOD COUNT 7.9 x10^3/uL (4.0-11.0)
[2020-03-10] MEDS: PANTOPRAZOLE IV PUSH 40 MG VIAL. IVP SCH (08:05)
[2020-03-10] MEDS: TPN PER PHARMACY MC PRN (08:55)
[2020-03-10] MEDS ORDERED: SODIUM PHOSPHATE 15 MMOL in IV NORMAL SALINE 250ML 250 ML IV ONE (09:00)
--- NOTE | 2020-03-10 09:02 | NUR ---
Pharmacy TPN Dosing Note S: FABIANO HELLER is a 69 year old M Currently receiving Central Continuous TPN started 03/08/20 B:Pertinent PMH: NPO/SBO LABS: Sodium: 129 Potassium: 3.8 Chloride: 101 Calcium: 6.0 Corrected Calcium: 8.64 Magnesium: 1.9 CO2: 25 SCr: 0.5 Glucose: 120 Albumin: 0.7 AST: 19 ALT: 17 TPN FORMULA: TPN TYPE: Central Continuous AMINO ACIDS: 95 gm DEXTROSE: 225 gm LIPIDS: 20 gm SODIUM CHLORIDE: 100 mEq SODIUM ACETATE: - mEq SODIUM PHOSPHATE: 15 mmol POTASSIUM CHLORIDE: 50 mEq POTASSIUM ACETATE: - mEq POTASSIUM PHOSPHATE: 18 mmol MAGNESIUM: 15 mEq CALCIUM: 10 mEq INSULIN: - units MULTIPLE VITAMIN: 10 ml TRACE ELEMENTS: 1 ml ml(s) TPN PLAN: 03/10 bolused NaPhos today, also added to TPN bag for tonight. R: Continue TPN Will monitor electrolytes, glucose, and tolerance to TPN. REYMUNDO ROMERO [facility], 03/10/20 0902
--- NOTE | 2020-03-10 09:20 | PDOC ---
SURGICAL PROGRESS NOTE Subjective Patient sedated and on the ventilator Vital Signs Vital Signs Date Time Temp Pulse Resp B/P (MAP) Pulse Ox O2 Delivery O2 Flow Rate FiO2 03/10/20 09:00 71 12 129/69 (89) 100 Ventilator 03/10/20 08:00 97.7 97.7 I&O Intake and Output 03/10/20 07:00 Intake Total 2625 ml Output Total 1889 ml Balance 736 ml Intake Oral 0 ml IV Total 2625 ml Output Urine Total 757 ml Drainage Total 1132 ml PATIENT HAS A DOZIER: Yes General: Other (Sedated) Abdomen: Soft, No tenderness, Other (Wound dressing clean dry and intact, AVI drain with serous output) Labs Laboratory Tests Test 03/08/20 16:15 03/09/20 05:30 03/09/20 08:00 03/10/20 06:15 Hemoglobin 7.0 g/dL (13.0-17.5) 8.0 g/dL (13.0-17.5) 7.6 g/dL (13.0-17.5) Hematocrit 21.4 % (39.0-53.0) 24.3 % (39.0-53.0) 23.9 % (39.0-53.0) Mean Corpuscular Hemoglobin Concent 33 g/dL (31-37) 33 g/dL (31-37) 32 g/dL (31-37) White Blood Count 9.4 x10^3/uL (4.0-11.0) 7.9 x10^3/uL (4.0-11.0) Red Blood Count 3.14 x10^6/uL (4.30-5.70) 3.02 x10^6/uL (4.30-5.70) Mean Corpuscular Volume 78 fL (79-100) 79 fL (79-100) Mean Corpuscular Hemoglobin 25 pg (25-35) 25 pg (25-35) Red Cell Distribution Width 28.5 % (11.5-14.5) 28.4 % (11.5-14.5) Platelet Count 156 x10^3/uL (140-400) 167 x10^3/uL (140-400) Sodium Level 131 mmol/L (136-145) 129 mmol/L (136-145) Potassium Level 3.5 mmol/L (3.5-5.1) 3.8 mmol/L (3.5-5.1) Chloride Level 103 mmol/L (98-107) 101 mmol/L (98-107) Carbon Dioxide Level 24 mmol/L (21-32) 25 mmol/L (21-32) Anion Gap 4 (6-14) 3 (6-14) Blood Urea Nitrogen 16 mg/dL (8-26) 16 mg/dL (8-26) Creatinine 0.5 mg/dL (0.7-1.3) 0.5 mg/dL (0.7-1.3) Estimated GFR (Cockcroft-Gault) 163.9 163.9 Glucose Level 142 mg/dL (70-99) 120 mg/dL (70-99) Calcium Level 6.3 mg/dL (8.5-10.1) 6.0 mg/dL (8.5-10.1) Phosphorus Level 2.4 mg/dL (2.6-4.7) 2.3 mg/dL (2.6-4.7) Magnesium Level 1.9 mg/dL (1.8-2.4) 1.9 mg/dL (1.8-2.4) O2 Saturation 98 % (92-99) Arterial Blood pH 7.47 (7.35-7.45) Arterial Blood pCO2 at Patient Temp 28 mmHg (35-46) Arterial Blood pO2 at Patient Temp 126 mmHg (65-108) Arterial Blood HCO3 20 mmol/L (21-28) Arterial Blood Base Excess -3 mmol/L (-3-3) FiO2 40%+% Albumin 0.7 g/dL (3.4-5.0) Test 03/10/20 07:20 O2 Saturation 97 % (92-99) Arterial Blood pH 7.40 (7.35-7.45) Arterial Blood pCO2 at Patient Temp 36 mmHg (35-46) Arterial Blood pO2 at Patient Temp 112 mmHg (65-108) Arterial Blood HCO3 22 mmol/L (21-28) Arterial Blood Base Excess -2 mmol/L (-3-3) FiO2 40 Laboratory Tests Test 03/10/20 06:15 03/10/20 07:20 White Blood Count 7.9 x10^3/uL (4.0-11.0) Red Blood Count 3.02 x10^6/uL (4.30-5.70) Hemoglobin 7.6 g/dL (13.0-17.5) Hematocrit 23.9 % (39.0-53.0) Mean Corpuscular Volume 79 fL (79-100) Mean Corpuscular Hemoglobin 25 pg (25-35) Mean Corpuscular Hemoglobin Concent 32 g/dL (31-37) Red Cell Distribution Width 28.4 % (11.5-14.5) Platelet Count 167 x10^3/uL (140-400) Sodium Level 129 mmol/L (136-145) Potassium Level 3.8 mmol/L (3.5-5.1) Chloride Level 101 mmol/L (98-107) Carbon Dioxide Level 25 mmol/L (21-32) Anion Gap 3 (6-14) Blood Urea Nitrogen 16 mg/dL (8-26) Creatinine 0.5 mg/dL (0.7-1.3) Estimated GFR (Cockcroft-Gault) 163.9 Glucose Level 120 mg/dL (70-99) Calcium Level 6.0 mg/dL (8.5-10.1) Phosphorus Level 2.3 mg/dL (2.6-4.7) Magnesium Level 1.9 mg/dL (1.8-2.4) Albumin 0.7 g/dL (3.4-5.0) O2 Saturation 97 % (92-99) Arterial Blood pH 7.40 (7.35-7.45) Arterial Blood pCO2 at Patient Temp 36 mmHg (35-46) Arterial Blood pO2 at Patient Temp 112 mmHg (65-108) Arterial Blood HCO3 22 mmol/L (21-28) Arterial Blood Base Excess -2 mmol/L (-3-3) FiO2 40 Problem List Problems Medical Problems: (1) Anemia Status: Acute (2) Colonic mass Status: Acute (3) Fatigue Status: Acute (4) Hypocalcemia Status: Acute (5) Nausea & vomiting Status: Acute (6) SBO (small bowel obstruction) Status: Acute Assessment/Plan Awaiting return of bowel function prior to starting tube feeds Improved urine output hemodynamically stable wean pressors as tolerated May start Lovenox for DVT prophylaxis Continue supportive care Justicifation of Admission Dx: Justifications for Admission: Justification of Admission Dx: Yes TRISTIAN SCRUGGS MD Mar 10, 2020 09:20
[2020-03-10] MEDS: ENOXAPARIN 40 MG/0.4 ML SYRINGE. SQ SCH (10:23)
--- NOTE | 2020-03-10 11:07 | PDOC ---
SUBJECTIVE ROS Remains Intubated ,On MV , OBJECTIVE Vital Signs Vital Signs Date Time Temp Pulse Resp B/P (MAP) Pulse Ox O2 Delivery O2 Flow Rate FiO2 03/10/20 09:00 71 12 129/69 (89) 100 Ventilator 03/10/20 08:00 97.7 97.7 I & 0 Intake and Output 03/10/20 06:59 Intake Total 2625 ml Output Total 1894 ml Balance 731 ml Intake Oral 0 ml IV Total 2625 ml Output Urine Total 722 ml Drainage Total 1172 ml PHYSICAL EXAM Physical Exam General Appearance: no apparent distress HEEN Intubated Skin: warm Respiratory: decreased at bases Heart: S1S2 Abdomen: s/p Surgery Genitourinary: Booth + Neurology: Intubated DIAGNOSIS/ASSESSMENT Assessment & Plan Hyponatremia - Na stable GEORGES- Cr Normal- may not be accurate 2/2 severe malnutrition but stable pressors as needed, supportive care , avoid nephrotoxins HypoCalcemia- Albumin 0.8, replace and adjust in TPN HyPhos- Replace as indicated, adjust in TPN HypoMg- Replace and adjust in TPN 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 S/P Open right colon resection, partial resection of duodenum, placement of duodenostomy tube, cholecystectomy with cholangiogram, ghost ileostomy Anemia- S/P PRBC yesterday per GS Severe protein calorie malnutrition- On TPN HX of prostate cancer BPH Critically ill COMMENT/RELEVANT DATA Meds Current Medications Medications (Trade) Dose Ordered Sig/Faisal Start Time Stop Time Status Last Admin Dose Admin Acetaminophen (Tylenol Supp) 650 mg PRN Q4HRS PRN 03/03/20 09:45 Albumin Human 500 ml @ As Directed STK-MED ONCE 03/05/20 13:13 03/05/20 13:14 DC Amino Acids/ Glycerin/ Electrolytes 1,000 ml @ 80 mls/hr [id number] 03/03/20 15:00 03/07/20 13:22 DC 03/07/20 02:41 80 MLS/HR Bisacodyl (Dulcolax Supp) 10 mg 1X ONCE 03/04/20 10:00 03/04/20 10:05 DC 03/04/20 12:18 10 MG Bisacodyl (Dulcolax Tab) 10 mg PRN DAILY PRN 03/03/20 09:45 03/06/20 10:25 DC 03/03/20 13:47 10 MG Bupivacaine HCl/ Epinephrine Bitart (Sensorcain-Epi 0.5%-1:[id number] Mpf) 30 ml STK-MED ONCE 03/05/20 10:42 03/05/20 10:42 DC Calcium Gluconate (Calcium Gluconate) 1,000 mg 1X ONCE 03/02/20 18:15 03/02/20 18:18 DC 03/02/20 18:21 1,000 MG Cefoxitin Sodium (Mefoxin) 1 gm STK-MED ONCE 03/05/20 12:57 03/05/20 12:57 DC Dexamethasone Sodium Phosphate (Decadron) 4 mg STK-MED ONCE 03/05/20 10:23 03/05/20 10:23 DC Docusate Sodium (Colace) 100 mg DAILY 03/03/20 12:00 03/06/20 10:25 DC 03/04/20 09:21 100 MG Enoxaparin Sodium (Lovenox 40mg Syringe) 40 mg Q24H 03/06/20 08:00 03/10/20 10:23 40 MG Enoxaparin Sodium (Lovenox Per Pharmacy Prophylaxis Dosing) 1 each PRN DAILY PRN 03/02/20 20:30 Cancel Ephedrine Sulfate (ePHEDrine PF IN SALINE SYRINGE) 50 mg STK-MED ONCE 03/05/20 12:13 03/05/20 12:14 DC Fentanyl Citrate 30 ml @ 2.5 mls/hr CONT PRN PRN 03/05/20 15:15 03/10/20 04:58 2.5 MLS/HR Fentanyl Citrate (Fentanyl 2ml Vial) 100 mcg STK-MED ONCE 03/05/20 10:24 03/05/20 10:24 DC Furosemide (Lasix) 40 mg 1X ONCE 03/03/20 15:00 03/03/20 15:01 DC 03/03/20 16:48 40 MG Hydromorphone HCl (Dilaudid) 0.5 mg PRN Q10MIN PRN 03/05/20 07:15 03/05/20 20:00 DC Info (CONTRAST GIVEN -- Rx MONITORING) 1 each PRN DAILY PRN 03/03/20 16:15 03/05/20 16:15 DC Info (Tpn Per Pharmacy) 1 each PRN DAILY PRN 7/2/20 11:00 03/10/20 08:55 1 EACH Iohexol (Omnipaque 300 Mg/ml) 50 ml STK-MED ONCE 03/05/20 10:41 03/05/20 10:41 DC 03/05/20 11:43 27 ML Lidocaine (Lidoderm) 1 patch DAILY 03/04/20 16:30 Cancel Lidocaine HCl (Lidocaine Pf 2% Vial) 5 ml STK-MED ONCE 03/05/20 10:23 03/05/20 10:23 DC Lidocaine HCl (Xylocaine-Mpf 1% 2ml Vial) 2 ml 1X PRN PRN 03/05/20 07:15 03/05/20 20:00 DC Magnesium Sulfate 50 ml @ 25 mls/hr 1X ONCE 03/08/20 08:00 03/08/20 09:59 DC 03/08/20 08:00 25 MLS/HR Midazolam HCl 100 mg/Sodium Chloride 100 ml @ 1 mls/hr CONT PRN 03/05/20 15:15 03/10/20 09:05 7 MLS/HR Miscellaneous (Lidoderm Patch Removal) 1 ea QHS 03/04/20 21:00 Cancel Morphine Sulfate 30 ml @ 0 mls/hr CONT PRN PRN 03/05/20 16:15 03/06/20 09:48 DC Morphine Sulfate (Morphine Sulfate) 1 mg PRN Q10MIN PRN 03/05/20 07:15 03/05/20 20:00 DC Naloxone HCl (Narcan) 0.4 mg PRN Q2MIN PRN 03/05/20 16:15 Norepinephrine Bitartrate 8 mg/ Dextrose 258 ml @ 15.287 mls/ hr CONT PRN 03/05/20 15:30 03/08/20 11:23 5.7 MLS/HR Ondansetron HCl (Zofran) 4 mg PRN Q6HRS PRN 03/05/20 16:15 Pantoprazole Sodium (PROTONIX VIAL for IV PUSH) 40 mg DAILYAC 03/05/20 10:30 03/10/20 08:05 40 MG Phenylephrine HCl (Devin-Synephrine Inj) 10 mg STK-MED ONCE 03/05/20 14:35 03/05/20 14:36 DC Phenylephrine HCl (PHENYLEPHRINE in 0.9% NACL PF) 1 mg STK-MED ONCE 03/05/20 12:13 03/05/20 12:14 DC Piperacillin Sod/ Tazobactam Sod 3.375 gm/Sodium Chloride 50 ml @ 100 mls/hr Q6HRS 03/05/20 17:00 03/10/20 06:15 100 MLS/HR Polyethylene Glycol (miraLAX PACKET) 17 gm QHS 03/03/20 21:00 03/06/20 10:25 DC 03/04/20 21:03 17 GM Potassium Chloride/Water 100 ml @ 100 mls/hr 1X ONCE 03/08/20 16:00 03/08/20 16:59 DC 03/08/20 15:51 100 MLS/HR Potassium Phosphate 13.6 mmol/Sodium Chloride 254.5333 ml @ 62.5 mls/hr Q4H 03/08/20 08:30 03/08/20 20:29 DC 03/08/20 16:52 62.5 MLS/HR Prochlorperazine Edisylate (Compazine) 5 mg PACU PRN PRN 03/05/20 07:15 03/06/20 07:14 DC Propofol (Diprivan) 200 mg STK-MED ONCE 03/05/20 10:23 03/05/20 10:23 DC Psyllium Hydrophilic Mucilloid (Metamucil Fiber Packet) 1 pkt QHS 03/03/20 21:00 03/06/20 10:25 DC 03/04/20 21:03 1 PKT Ringer's Solution 1,000 ml @ 999 mls/hr 1X ONCE 03/06/20 18:15 03/06/20 19:15 DC 03/06/20 18:43 999 MLS/HR Rocuronium Backus (Zemuron) 50 mg STK-MED ONCE 03/05/20 12:27 03/05/20 12:27 DC Sevoflurane (Ultane) 90 ml STK-MED ONCE 03/05/20 14:30 03/05/20 14:30 DC Sodium Chloride (Normal Saline Flush) 3 ml QSHIFT PRN 03/05/20 16:15 Sodium Chloride 100 meq/Potassium Chloride 50 meq/ Potassium Phosphate 18 mmol/ Magnesium Sulfate 15 meq/Calcium Gluconate 10 meq/ Multivitamins 10 ml/Chromium/ Copper/Manganese/ Seleni/Zn 1 ml/ Total Parenteral Nutrition/Amino Acids/Dextrose/ Fat Emulsion Intravenous 1,920 ml @ 80 mls/hr TPN CONT 03/09/20 22:00 03/10/20 21:59 03/09/20 22:00 80 MLS/HR Sodium Chloride 100 meq/Sodium Phosphate 15 mmol/ Potassium Chloride 50 meq/ Potassium Phosphate 18 mmol/ Magnesium Sulfate 15 meq/Calcium Gluconate 10 meq/ Multivitamins 10 ml/Chromium/ Copper/Manganese/ Seleni/Zn 1 ml/ Total Parenteral Nutrition/Amino Acids/Dextrose/ Fat Emulsion Intravenous 1,920 ml @ 80 mls/hr TPN CONT 03/10/20 22:00 03/11/20 21:59 Sodium Phosphate 15 mmol/Sodium Chloride 255 ml @ 63.75 mls/ hr 1X ONCE 03/10/20 09:00 03/10/20 12:59 03/10/20 08:45 63.75 MLS/HR Succinylcholine Chloride (Anectine) 200 mg STK-MED ONCE 03/05/20 10:23 03/05/20 10:23 DC Tamsulosin HCl (Flomax) 0.4 mg HS 03/02/20 23:45 03/04/20 21:03 0.4 MG Vasopressin 20 unit/Dextrose 101 ml @ 12 mls/hr CONT PRN 03/05/20 20:00 03/10/20 04:57 12 MLS/HR Lab Laboratory Tests Test 03/10/20 06:15 03/10/20 07:20 White Blood Count 7.9 x10^3/uL (4.0-11.0) Red Blood Count 3.02 x10^6/uL (4.30-5.70) Hemoglobin 7.6 g/dL (13.0-17.5) Hematocrit 23.9 % (39.0-53.0) Mean Corpuscular Volume 79 fL (79-100) Mean Corpuscular Hemoglobin 25 pg (25-35) Mean Corpuscular Hemoglobin Concent 32 g/dL (31-37) Red Cell Distribution Width 28.4 % (11.5-14.5) Platelet Count 167 x10^3/uL (140-400) Sodium Level 129 mmol/L (136-145) Potassium Level 3.8 mmol/L (3.5-5.1) Chloride Level 101 mmol/L (98-107) Carbon Dioxide Level 25 mmol/L (21-32) Anion Gap 3 (6-14) Blood Urea Nitrogen 16 mg/dL (8-26) Creatinine 0.5 mg/dL (0.7-1.3) Estimated GFR (Cockcroft-Gault) 163.9 Glucose Level 120 mg/dL (70-99) Calcium Level 6.0 mg/dL (8.5-10.1) Phosphorus Level 2.3 mg/dL (2.6-4.7) Magnesium Level 1.9 mg/dL (1.8-2.4) Albumin 0.7 g/dL (3.4-5.0) O2 Saturation 97 % (92-99) Arterial Blood pH 7.40 (7.35-7.45) Arterial Blood pCO2 at Patient Temp 36 mmHg (35-46) Arterial Blood pO2 at Patient Temp 112 mmHg (65-108) Arterial Blood HCO3 22 mmol/L (21-28) Arterial Blood Base Excess -2 mmol/L (-3-3) FiO2 40 Results All relevant outside records, renal labs, imaging studies, telemetry/EKG's were reviewed. Justicifation of Admission Dx: Justifications for Admission: Justification of Admission Dx: Yes SUZANNE KATHLEEN MD Mar 10, 2020 11:07
--- NOTE | 2020-03-10 13:19 | PDOC ---
PROGRESS NOTES Chief Complaint Chief Complaint nause and vomiting with abd pain Fatigue Weight Loss Small bowel dilatation/obstruction suspicious for primary colon cancer 10.5cm mass with surrounding lymph nodes concerning for metastatic disease 10.5 cm colonic mass. Colonic mass abuts the right hepatic lobe inferior margin as well as the duodenum and anterior right kidney (extending through or deforming Gerota's fascia), suspicious for primary colon cancer. Prominent associated lymph nodes are seen, possibly metastatic Obstructing right colon cancer Dialated Appendix fatty liver dz Gallstones Microcytic Anemia Alkaline Phosphatemia Hyponatremia Mild Leukocytosis Tachycardia H/o prostate cancer in remission Severe protein calorie malnutrition LE edema - BNP of 350, no cardiac history and no symptoms of CHF. This is unlikely to be cardiac related at all. Likely likely lymphatic obstruction due to abdominal mass. Hyponatremia - likely due to poor PO intake, SERUM OSMOLALITY PENDING HYPOTENSION, POSSIBLE SEPSIS NPO vent support post=op s/p open right colon POD # 1 remains critically ill 38 min cc time History of Present Illness History of Present Illness still on IV meds for blood pressure septic and shock art line removed today cont current Vitals Vitals Vital Signs Date Time Temp Pulse Resp B/P (MAP) Pulse Ox O2 Delivery O2 Flow Rate FiO2 03/10/20 13:00 54 12 115/73 (87) 100 Ventilator 03/10/20 12:00 98.4 98.4 Physical Exam Physical Exam SEDATED ON VENT General: Other (Sedated) Heart: Regular rate Lungs: Clear Abdomen: Soft, No tenderness, Other (Wound dressing clean dry and intact, AVI drain with serous output) Extremities: Other (Mild edema) Skin: No significant lesion Labs LABS Laboratory Tests Test 03/10/20 06:15 03/10/20 07:20 White Blood Count 7.9 x10^3/uL (4.0-11.0) Red Blood Count 3.02 x10^6/uL (4.30-5.70) Hemoglobin 7.6 g/dL (13.0-17.5) Hematocrit 23.9 % (39.0-53.0) Mean Corpuscular Volume 79 fL (79-100) Mean Corpuscular Hemoglobin 25 pg (25-35) Mean Corpuscular Hemoglobin Concent 32 g/dL (31-37) Red Cell Distribution Width 28.4 % (11.5-14.5) Platelet Count 167 x10^3/uL (140-400) Sodium Level 129 mmol/L (136-145) Potassium Level 3.8 mmol/L (3.5-5.1) Chloride Level 101 mmol/L (98-107) Carbon Dioxide Level 25 mmol/L (21-32) Anion Gap 3 (6-14) Blood Urea Nitrogen 16 mg/dL (8-26) Creatinine 0.5 mg/dL (0.7-1.3) Estimated GFR (Cockcroft-Gault) 163.9 Glucose Level 120 mg/dL (70-99) Calcium Level 6.0 mg/dL (8.5-10.1) Phosphorus Level 2.3 mg/dL (2.6-4.7) Magnesium Level 1.9 mg/dL (1.8-2.4) Albumin 0.7 g/dL (3.4-5.0) O2 Saturation 97 % (92-99) Arterial Blood pH 7.40 (7.35-7.45) Arterial Blood pCO2 at Patient Temp 36 mmHg (35-46) Arterial Blood pO2 at Patient Temp 112 mmHg (65-108) Arterial Blood HCO3 22 mmol/L (21-28) Arterial Blood Base Excess -2 mmol/L (-3-3) FiO2 40 Assessment and Plan Assessmemt and Plan Problems Medical Problems: (1) Anemia Status: Acute (2) Colonic mass Status: Acute (3) Fatigue Status: Acute (4) Hypocalcemia Status: Acute (5) Nausea & vomiting Status: Acute (6) SBO (small bowel obstruction) Status: Acute Comment Review of Relevant I have reviewed the following items radhames (where applicable) has been applied. Labs Laboratory Tests Test 03/08/20 16:15 03/09/20 05:30 03/09/20 08:00 03/10/20 06:15 Hemoglobin 7.0 g/dL (13.0-17.5) 8.0 g/dL (13.0-17.5) 7.6 g/dL (13.0-17.5) Hematocrit 21.4 % (39.0-53.0) 24.3 % (39.0-53.0) 23.9 % (39.0-53.0) Mean Corpuscular Hemoglobin Concent 33 g/dL (31-37) 33 g/dL (31-37) 32 g/dL (31-37) White Blood Count 9.4 x10^3/uL (4.0-11.0) 7.9 x10^3/uL (4.0-11.0) Red Blood Count 3.14 x10^6/uL (4.30-5.70) 3.02 x10^6/uL (4.30-5.70) Mean Corpuscular Volume 78 fL (79-100) 79 fL (79-100) Mean Corpuscular Hemoglobin 25 pg (25-35) 25 pg (25-35) Red Cell Distribution Width 28.5 % (11.5-14.5) 28.4 % (11.5-14.5) Platelet Count 156 x10^3/uL (140-400) 167 x10^3/uL (140-400) Sodium Level 131 mmol/L (136-145) 129 mmol/L (136-145) Potassium Level 3.5 mmol/L (3.5-5.1) 3.8 mmol/L (3.5-5.1) Chloride Level 103 mmol/L (98-107) 101 mmol/L (98-107) Carbon Dioxide Level 24 mmol/L (21-32) 25 mmol/L (21-32) Anion Gap 4 (6-14) 3 (6-14) Blood Urea Nitrogen 16 mg/dL (8-26) 16 mg/dL (8-26) Creatinine 0.5 mg/dL (0.7-1.3) 0.5 mg/dL (0.7-1.3) Estimated GFR (Cockcroft-Gault) 163.9 163.9 Glucose Level 142 mg/dL (70-99) 120 mg/dL (70-99) Calcium Level 6.3 mg/dL (8.5-10.1) 6.0 mg/dL (8.5-10.1) Phosphorus Level 2.4 mg/dL (2.6-4.7) 2.3 mg/dL (2.6-4.7) Magnesium Level 1.9 mg/dL (1.8-2.4) 1.9 mg/dL (1.8-2.4) O2 Saturation 98 % (92-99) Arterial Blood pH 7.47 (7.35-7.45) Arterial Blood pCO2 at Patient Temp 28 mmHg (35-46) Arterial Blood pO2 at Patient Temp 126 mmHg (65-108) Arterial Blood HCO3 20 mmol/L (21-28) Arterial Blood Base Excess -3 mmol/L (-3-3) FiO2 40%+% Albumin 0.7 g/dL (3.4-5.0) Test 03/10/20 07:20 O2 Saturation 97 % (92-99) Arterial Blood pH 7.40 (7.35-7.45) Arterial Blood pCO2 at Patient Temp 36 mmHg (35-46) Arterial Blood pO2 at Patient Temp 112 mmHg (65-108) Arterial Blood HCO3 22 mmol/L (21-28) Arterial Blood Base Excess -2 mmol/L (-3-3) FiO2 40 Laboratory Tests Test 03/10/20 06:15 03/10/20 07:20 White Blood Count 7.9 x10^3/uL (4.0-11.0) Red Blood Count 3.02 x10^6/uL (4.30-5.70) Hemoglobin 7.6 g/dL (13.0-17.5) Hematocrit 23.9 % (39.0-53.0) Mean Corpuscular Volume 79 fL (79-100) Mean Corpuscular Hemoglobin 25 pg (25-35) Mean Corpuscular Hemoglobin Concent 32 g/dL (31-37) Red Cell Distribution Width 28.4 % (11.5-14.5) Platelet Count 167 x10^3/uL (140-400) Sodium Level 129 mmol/L (136-145) Potassium Level 3.8 mmol/L (3.5-5.1) Chloride Level 101 mmol/L (98-107) Carbon Dioxide Level 25 mmol/L (21-32) Anion Gap 3 (6-14) Blood Urea Nitrogen 16 mg/dL (8-26) Creatinine 0.5 mg/dL (0.7-1.3) Estimated GFR (Cockcroft-Gault) 163.9 Glucose Level 120 mg/dL (70-99) Calcium Level 6.0 mg/dL (8.5-10.1) Phosphorus Level 2.3 mg/dL (2.6-4.7) Magnesium Level 1.9 mg/dL (1.8-2.4) Albumin 0.7 g/dL (3.4-5.0) O2 Saturation 97 % (92-99) Arterial Blood pH 7.40 (7.35-7.45) Arterial Blood pCO2 at Patient Temp 36 mmHg (35-46) Arterial Blood pO2 at Patient Temp 112 mmHg (65-108) Arterial Blood HCO3 22 mmol/L (21-28) Arterial Blood Base Excess -2 mmol/L (-3-3) FiO2 40 Microbiology 03/02/20 Urine Culture - Final, Complete Medications Current Medications Sodium Chloride 1,000 ml @ 1,000 mls/hr 1X ONCE IV Last administered on 03/02/20at 17:05; Start 03/02/20 at 16:45; Stop 03/02/20 at 17:44; Status DC Calcium Gluconate (Calcium Gluconate) 1,000 mg 1X ONCE IVP Last administered on 03/02/20at 18:21; Start 03/02/20 at 18:15; Stop 03/02/20 at 18:18; Status DC Iohexol (Omnipaque 300 Mg/ml) 75 ml 1X ONCE IV Last administered on 03/02/20at 18:34; Start 03/02/20 at 18:30; Stop 03/02/20 at 18:31; Status DC Pantoprazole Sodium (PROTONIX VIAL for IV PUSH) 40 mg 1X ONCE IVP Last administered on 03/02/20at 18:41; Start 03/02/20 at 18:45; Stop 03/02/20 at 18:46; Status DC Sodium Chloride 1,000 ml @ 100 mls/hr 1X ONCE IV Last administered on 03/02/20at 19:04; Start 03/02/20 at 18:45; Stop 03/03/20 at 04:44; Status DC Enoxaparin Sodium (Lovenox Per Pharmacy Prophylaxis Dosing) 1 each PRN DAILY PRN MC SEE COMMENTS; Start 03/02/20 at 20:30; Status Cancel Enoxaparin Sodium (Lovenox 40mg Syringe) 40 mg Q24H SQ Last administered on 03/02/20at 23:48; Start 03/02/20 at 21:00; Stop 03/03/20 at 08:48; Status DC Tamsulosin HCl (Flomax) 0.4 mg HS PO Last administered on 03/04/20at 21:03; Start 03/02/20 at 23:45 Sodium Chloride 1,000 ml @ 100 mls/hr Q10H IV Last administered on 03/03/20at 11:07; Start 03/03/20 at 10:00; Stop 03/03/20 at 14:58; Status DC Ondansetron HCl (Zofran) 4 mg PRN Q4HRS PRN IV NAUSEA/VOMITING Last administered on 03/04/20at 22:31; Start 03/03/20 at 09:45; Stop 03/05/20 at 16:15; Status DC Acetaminophen (Tylenol Supp) 650 mg PRN Q4HRS PRN DE TEMP OVER 100.4F OR MILD PAIN; Start 03/03/20 at 09:45 Polyethylene Glycol (miraLAX PACKET) 17 gm DAILY PO Last administered on 03/04/20at 09:21; Start 03/03/20 at 10:00; Stop 03/06/20 at 10:25; Status DC Bisacodyl (Dulcolax Supp) 10 mg PRN DAILY PRN DE CONSTIPATION; Start 03/03/20 at 09:45; Stop 03/06/20 at 10:25; Status DC Bisacodyl (Dulcolax Tab) 10 mg PRN DAILY PRN PO CONSTIPATION Last administered on 03/03/20at 13:47; Start 03/03/20 at 09:45; Stop 03/06/20 at 10:25; Status DC Psyllium Hydrophilic Mucilloid (Metamucil Fiber Packet) 1 pkt QHS PO Last a dministered on 03/04/20at 21:03; Start 03/03/20 at 21:00; Stop 03/06/20 at 10:25; Status DC Polyethylene Glycol (miraLAX PACKET) 17 gm QHS PO Last administered on 03/04/20at 21:03; Start 03/03/20 at 21:00; Stop 03/06/20 at 10:25; Status DC Docusate Sodium (Colace) 100 mg DAILY PO Last administered on 03/04/20at 09:21; Start 03/03/20 at 12:00; Stop 03/06/20 at 10:25; Status DC Amino Acids/ Glycerin/ Electrolytes 1,000 ml @ 80 mls/hr [id number] IV Last administered on 03/07/20at 02:41; Start 03/03/20 at 15:00; Stop 03/07/20 at 13:22; Status DC Furosemide (Lasix) 40 mg 1X ONCE IVP Last administered on 03/03/20at 16:48; Start 03/03/20 at 15:00; Stop 03/03/20 at 15:01; Status DC Iohexol (Omnipaque 300 Mg/ml) 75 ml 1X ONCE IV Last administered on 03/03/20at 16:33; Start 03/03/20 at 16:15; Stop 03/03/20 at 16:16; Status DC Info (CONTRAST GIVEN -- Rx MONITORING) 1 each PRN DAILY PRN MC SEE COMMENTS; Start 03/03/20 at 16:15; Stop 03/05/20 at 16:15; Status DC Bisacodyl (Dulcolax Supp) 10 mg 1X ONCE DE Last administered on 03/04/20at 12:18; Start 03/04/20 at 10:00; Stop 03/04/20 at 10:05; Status DC Cefoxitin Sodium (Mefoxin) 2 gm 1X PREOP IVP Last administered on 03/05/20at 13:09; Start 03/05/20 at 10:00; Stop 03/08/20 at 11:05; Status DC Lidocaine (Lidoderm) 1 patch DAILY TD ; Start 03/04/20 at 16:30; Status Cancel Miscellaneous (Lidoderm Patch Removal) 1 ea QHS MC ; Start 03/04/20 at 21:00; Status Cancel Ondansetron HCl (Zofran) 4 mg PRN Q6HRS PRN IVP NAUSEA/VOMITING; Start 03/05/20 at 07:15; Stop 03/05/20 at 20:00; Status DC Fentanyl Citrate (Fentanyl 2ml Vial) 25 mcg PRN Q5MIN PRN IVP MILD PAIN 1-3; Start 03/05/20 at 07:15; Stop 03/05/20 at 20:00; Status DC Fentanyl Citrate (Fentanyl 2ml Vial) 50 mcg PRN Q5MIN PRN IVP MODERATE TO SEVERE PAIN; Start 03/05/20 at 07:15; Stop 03/05/20 at 20:00; Status DC Morphine Sulfate (Morphine Sulfate) 1 mg PRN Q10MIN PRN IVP SEVERE PAIN 7-10; Start 03/05/20 at 07:15; Stop 03/05/20 at 20:00; Status DC Ringer's Solution 1,000 ml @ 30 mls/hr Q24H IV Last administered on 03/05/20at 09:59; Start 03/05/20 at 07:05; Stop 03/05/20 at 19:04; Status DC Lidocaine HCl (Xylocaine-Mpf 1% 2ml Vial) 2 ml 1X PRN PRN ID IV START; Start 03/05/20 at 07:15; Stop 03/05/20 at 20:00; Status DC Hydromorphone HCl (Dilaudid) 0.5 mg PRN Q10MIN PRN IVP SEV PAIN, Second choice; Start 03/05/20 at 07:15; Stop 03/05/20 at 20:00; Status DC Prochlorperazine Edisylate (Compazine) 5 mg PACU PRN PRN IVP NAUSEA, MRX1; Start 03/05/20 at 07:15; Stop 03/06/20 at 07:14; Status DC Pantoprazole Sodium (PROTONIX VIAL for IV PUSH) 40 mg DAILYAC IVP Last administered on 03/10/20at 08:05; Start 03/05/20 at 10:30 Propofol (Diprivan) 200 mg STK-MED ONCE IV ; Start 03/05/20 at 10:23; Stop 03/05/20 at 10:23; Status DC Lidocaine HCl (Lidocaine Pf 2% Vial) 5 ml STK-MED ONCE .ROUTE ; Start 03/05/20 at 10:23; Stop 03/05/20 at 10:23; Status DC Ondansetron HCl (Zofran) 4 mg STK-MED ONCE .ROUTE ; Start 03/05/20 at 10:23; Stop 03/05/20 at 10:23; Status DC Dexamethasone Sodium Phosphate (Decadron) 4 mg STK-MED ONCE .ROUTE ; Start 03/05/20 at 10:23; Stop 03/05/20 at 10:23; Status DC Succinylcholine Chloride (Anectine) 200 mg STK-MED ONCE .ROUTE ; Start 03/05/20 at 10:23; Stop 03/05/20 at 10:23; Status DC Rocuronium [place] (Zemuron) 50 mg STK-MED ONCE .ROUTE ; Start 03/05/20 at 10:24; Stop 03/05/20 at 10:24; Status DC Fentanyl Citrate (Fentanyl 2ml Vial) 100 mcg STK-MED ONCE .ROUTE ; Start 0 at 10:24; Stop 03/05/20 at 10:24; Status DC Iohexol (Omnipaque 300 Mg/ml) 50 ml STK-MED ONCE .ROUTE Last administered on 03/05/20at 11:43; Start 03/05/20 at 10:41; Stop 03/05/20 at 10:41; Status DC Bupivacaine HCl/ Epinephrine Bitart (Sensorcain-Epi 0.5%-1:[id number] Mpf) 30 ml STK-MED ONCE .ROUTE ; Start 03/05/20 at 10:42; Stop 03/05/20 at 10:42; Status DC Phenylephrine HCl (PHENYLEPHRINE in 0.9% NACL PF) 1 mg STK-MED ONCE IV ; Start 03/05/20 at 12:13; Stop 03/05/20 at 12:14; Status DC Ephedrine Sulfate (ePHEDrine PF IN SALINE SYRINGE) 50 mg STK-MED ONCE IV ; Start 03/05/20 at 12:13; Stop 03/05/20 at 12:14; Status DC Phenylephrine HCl (Devin-Synephrine Inj) 10 mg STK-MED ONCE .ROUTE ; Start 03/05/20 at 12:15; Stop 03/05/20 at 12:15; Status DC Rocuronium [place] (Zemuron) 50 mg STK-MED ONCE .ROUTE ; Start 03/05/20 at 12:27; Stop 03/05/20 at 12:27; Status DC Cefoxitin Sodium (Mefoxin) 1 gm STK-MED ONCE IVP ; Start 03/05/20 at 12:57; Stop 03/05/20 at 12:57; Status DC Albumin Human 500 ml @ As Directed STK-MED ONCE IV ; Start 03/05/20 at 13:08; Stop 03/05/20 at 13:08; Status DC Albumin Human 500 ml @ As Directed STK-MED ONCE IV ; Start 03/05/20 at 13:13; Stop 03/05/20 at 13:14; Status DC Phenylephrine HCl (Devin-Synephrine Inj) 10 mg STK-MED ONCE .ROUTE ; Start 03/05/20 at 13:35; Stop 03/05/20 at 13:35; Status DC Phenylephrine HCl (Devin-Synephrine Inj) 10 mg STK-MED ONCE .ROUTE ; Start 03/05/20 at 13:48; Stop 03/05/20 at 13:49; Status DC Sevoflurane (Ultane) 90 ml STK-MED ONCE IH ; Start 03/05/20 at 14:30; Stop 03/05/20 at 14:30; Status DC Phenylephrine HCl (Devin-Synephrine Inj) 10 mg STK-MED ONCE .ROUTE ; Start 03/05/20 at 14:35; Stop 03/05/20 at 14:36; Status DC Midazolam HCl 100 mg/Sodium Chloride 100 ml @ 1 mls/hr CONT PRN IV SEE I/O RECORD Last administered on 03/10/20at 09:05; Start 03/05/20 at 15:15 Fentanyl Citrate 30 ml @ 2.5 mls/hr CONT PRN PRN IV PER PROTOCOL Last admini stered on 03/10/20at 11:03; Start 03/05/20 at 15:15 Naloxone HCl (Narcan) 0.4 mg PRN Q2MIN PRN IV SEE INSTRUCTIONS; Start 03/05/20 at 15:15; Stop 03/06/20 at 09:45; Status DC Sodium Chloride 1,000 ml @ 25 mls/hr Q24H IV ; Start 03/05/20 at 15:13; Stop 03/06/20 at 14:24; Status DC Norepinephrine Bitartrate 8 mg/ Dextrose 258 ml @ 15.287 mls/ hr CONT PRN IV PER PROTOCOL Last administered on 03/08/20at 11:23; Start 03/05/20 at 15:30 Enoxaparin Sodium (Lovenox 40mg Syringe) 40 mg Q24H SQ Last administered on 03/10/20at 10:23; Start 03/06/20 at 08:00 Sodium Chloride (Normal Saline Flush) 3 ml QSHIFT PRN IV AFTER MEDS AND BLOOD DRAWS; Start 03/05/20 at 16:15 Ringer's Solution 1,000 ml @ 100 mls/hr Q10H IV Last administered on 03/08/20at 11:19; Start 03/05/20 at 16:09; Stop 03/08/20 at 18:54; Status DC Naloxone HCl (Narcan) 0.4 mg PRN Q2MIN PRN IV SEE INSTRUCTIONS; Start 03/05/20 at 16:15 Sodium Chloride 1,000 ml @ 25 mls/hr Q24H IV ; Start 03/05/20 at 16:09; Stop 03/06/20 at 14:24; Status DC Morphine Sulfate 30 ml @ 0 mls/hr CONT PRN PRN IV PER PROTOCOL; Start 03/05/20 at 16:15; Stop 03/06/20 at 09:48; Status DC Ondansetron HCl (Zofran) 4 mg PRN Q6HRS PRN IVP NAUESA, 1ST CHOICE; Start 03/05/20 at 16:15 Piperacillin Sod/ Tazobactam Sod 3.375 gm/Sodium Chloride 50 ml @ 100 mls/hr Q6HRS IV Last administered on 03/10/20at 11:38; Start 03/05/20 at 17:00 Ringer's Solution 1,000 ml @ 999 mls/hr 1X ONCE IV Last administered on 03/05/20at 20:59; Start 03/05/20 at 20:00; Stop 03/05/20 at 21:00; Status DC Vasopressin 20 unit/Dextrose 101 ml @ 12 mls/hr CONT PRN IV SEE I/O RECORD Last administered on 03/10/20at 11:03; Start 03/05/20 at 20:00 Ringer's Solution 1,000 ml @ 999 mls/hr 1X ONCE IV Last administered on 03/06/20at 01:07; Start 03/06/20 at 01:00; Stop 03/06/20 at 02:00; Status DC Ringer's Solution 1,000 ml @ 999 mls/hr 1X ONCE IV Last administered on 03/06/20at 05:18; Start 03/06/20 at 05:00; Stop 03/06/20 at 06:00; Status DC Ringer's Solution 1,000 ml @ 999 mls/hr 1X ONCE IV Last administered on 03/06/20at 09:54; Start 03/06/20 at 09:45; Stop 03/06/20 at 10:45; Status DC Ringer's Solution 1,000 ml @ 999 mls/hr 1X ONCE IV Last administered on 03/06/20at 13:40; Start 03/06/20 at 13:45; Stop 03/06/20 at 14:45; Status DC Ringer's Solution 1,000 ml @ 999 mls/hr 1X ONCE IV Last administered on 03/06/20at 18:43; Start 03/06/20 at 18:15; Stop 03/06/20 at 19:15; Status DC Sodium Chloride 200 ml @ 50 mls/hr 1X ONCE IV Last administered on 03/07/20at 13:49; Start 03/07/20 at 13:30; Stop 03/07/20 at 17:29; Status DC Potassium Phosphate 13.6 mmol/Sodium Chloride 254.5333 ml @ 62.5 mls/hr Q4H IV Last administered on 03/08/20at 16:52; Start 03/08/20 at 08:30; Stop 03/08/20 at 20:29; Status DC Magnesium Sulfate 50 ml @ 25 mls/hr 1X ONCE IV Last administered on 03/08/20at 08:00; Start 03/08/20 at 08:00; Stop 03/08/20 at 09:59; Status DC Sodium Chloride 300 ml @ 50 mls/hr 1X ONCE IV Last administered on 03/08/20at 08:00; Start 03/08/20 at 08:00; Stop 03/08/20 at 13:59; Status DC Info (Tpn Per Pharmacy) 1 each PRN DAILY PRN MC SEE COMMENTS Last administered on 03/10/20at 08:55; Start 03/08/20 at 11:00 Sodium Chloride 100 meq/Potassium Chloride 50 meq/ Potassium Phosphate 18 mmol/ Magnesium Sulfate 15 meq/Calcium Gluconate 10 meq/ Multivitamins 10 ml/Chromium/ Copper/Manganese/ Seleni/Zn 1 ml/ Total Parenteral Nutrition/Amino Acids/Dextrose/ Fat Emulsion Intravenous 1,512 ml @ 63 mls/hr TPN CONT IV ; Start 03/08/20 at 22:00; Stop 03/08/20 at 11:31; Status DC Sodium Chloride 100 meq/Potassium Chloride 50 meq/ Potassium Phosphate 18 mmol/ Magnesium Sulfate 15 meq/Calcium Gluconate 10 meq/ Multivitamins 10 ml/Chromium/ Copper/Manganese/ Seleni/Zn 1 ml/ Total Parenteral Nutrition/Amino Acids/Dextrose/ Fat Emulsion Intravenous 1,920 ml @ 80 mls/hr TPN CONT IV Last administered on 03/08/20at 23:04; Start 03/08/20 at 22:00; Stop 03/09/20 at 21:59; Status DC Potassium Chloride/Water 100 ml @ 100 mls/hr 1X ONCE IV Last administered on 03/08/20at 15:51; Start 03/08/20 at 16:00; Stop 03/08/20 at 16:59; Status DC Sodium Chloride 100 meq/Potassium Chloride 50 meq/ Potassium Phosphate 18 mmol/ Magnesium Sulfate 15 meq/Calcium Gluconate 10 meq/ Multivitamins 10 ml/Chromium/ Copper/Manganese/ Seleni/Zn 1 ml/ Total Parenteral Nutrition/Amino Acids/Dextrose/ Fat Emulsion Intravenous 1,920 ml @ 80 mls/hr TPN CONT IV Last administered on 03/09/20at 22:00; Start 03/09/20 at 22:00; Stop 03/10/20 at 21:59 Sodium Phosphate 15 mmol/Sodium Chloride 255 ml @ 63.75 mls/ hr 1X ONCE IV Last administered on 03/10/20at 08:45; Start 03/10/20 at 09:00; Stop 03/10/20 at 12:59; Status DC Sodium Chloride 100 meq/Sodium Phosphate 15 mmol/ Potassium Chloride 50 meq/ Potassium Phosphate 18 mmol/ Magnesium Sulfate 15 meq/Calcium Gluconate 10 meq/ Multivitamins 10 ml/Chromium/ Copper/Manganese/ Seleni/Zn 1 ml/ Total Parenteral Nutrition/Amino Acids/Dextrose/ Fat Emulsion Intravenous 1,920 ml @ 80 mls/hr TPN CONT IV ; Start 03/10/20 at 22:00; Stop 03/11/20 at 21:59 Active Scripts Active Reported Flomax (Tamsulosin Hcl) 0.4 Mg Cap.er.24h 1 Cap PO QHS Vitals/I & O Vital Sign - Last 24 Hours 03/09/20 03/09/20 03/09/20 03/09/20 13:39 14:00 15:00 15:33 Pulse 76 72 Resp 12 12 B/P (MAP) 94/52 (66) 101/ Pulse Ox 100 100 100 100 O2 Delivery Ventilator Ventilator Ventilator Ventilator 03/09/20 03/09/20 03/09/20 03/09/20 16:00 16:00 16:00 17:00 Temp 97.0 97.0 Pulse 82 98 Resp 12 12 B/P (MAP) 112/62 (79) 128/76 (93) Pulse Ox 100 100 O2 Delivery Mechanical Ventilator Ventilator Ventilator 03/09/20 03/09/20 03/09/20 03/09/20 17:44 17:48 18:00 19:00 Temp 96.5 96.5 Pulse 67 66 Resp 12 12 12 B/P (MAP) 98/58 (71) 94/48 (63) Pulse Ox 100 100 100 100 O2 Delivery Ventilator Ventilator Ventilator Ventilator 03/09/20 03/09/20 03/09/20 03/09/20 20:00 20:00 20:00 21:00 Pulse 62 61 Resp 12 12 B/P (MAP) 90/48 (62) 94/50 (65) Pulse Ox 100 100 O2 Delivery Ventilator Mechanical Ventilator Ventilator 03/09/20 03/09/20 03/09/20 03/09/20 22:00 23:00 23:51 23:51 Temp 97.6 97.6 Pulse 82 80 58 Resp 12 12 B/P (MAP) 116/66 (83) 90/41 (57) Pulse Ox 100 100 O2 Delivery Ventilator Ventilator Mechanical Ventilator 03/10/20 03/10/20 03/10/20 03/10/20 00:00 00:36 01:00 02:00 Pulse 64 60 58 Resp 12 12 12 B/P (MAP) 88/48 (61) 92/48 (63) 94/50 (65) Pulse Ox 100 100 100 100 O2 Delivery Ventilator Ventilator Ventilator Ventilator 03/10/20 03/10/20 03/10/20 03/10/20 03:00 04:00 04:00 04:19 Temp 97.2 97.2 Pulse 60 59 59 Resp 12 12 B/P (MAP) 94/48 (63) 96/49 (65) Pulse Ox 100 100 O2 Delivery Ventilator Ventilator Mechanical Ventilator 03/10/20 03/10/20 03/10/20 03/10/20 05:00 05:28 06:00 07:00 Pulse 69 59 63 Resp 12 12 12 B/P (MAP) 114/60 (78) 101/46 (64) 126/63 (84) Pulse Ox 100 100 100 100 O2 Delivery Ventilator Ventilator Ventilator 03/10/20 03/10/20 03/10/20 03/10/20 07:01 07:18 07:18 08:00 Temp 97.7 97.7 Pulse 61 Resp 12 12 12 B/P (MAP) 98/48 (65) Pulse Ox 100 100 100 100 O2 Delivery Ventilator Ventilator Ventilator Ventilator 03/10/20 03/10/20 03/10/20 03/10/20 08:00 08:00 08:54 09:00 Pulse 71 Resp 12 B/P (MAP) 129/69 (89) Pulse Ox 99 100 O2 Delivery Mechanical Ventilator Ventilator Ventilator 03/10/20 03/10/20 03/10/20 03/10/20 10:00 11:00 11:03 11:37 Pulse 71 68 Resp 12 12 12 B/P (MAP) 118/71 (87) 110/68 (82) Pulse Ox 100 100 100 100 O2 Delivery Ventilator Ventilator Ventilator Ventilator 03/10/20 03/10/20 03/10/20 03/10/20 11:44 12:00 12:10 13:00 Temp 98.4 98.4 Pulse 54 54 Resp 12 12 B/P (MAP) 118/72 (87) 115/73 (87) Pulse Ox 100 99 100 O2 Delivery Mechanical Ventilator Ventilator Ventilator Ventilator Intake and Output 03/09/20 03/09/20 03/10/20 15:00 23:00 07:00 Intake Total 0 ml 1345 ml 1280 ml Output Total 514 ml 435 ml 940 ml Balance -514 ml 910 ml 340 ml Nutrition Consultation Dietary Evaluation: Recommendations by RD: Dietary education by RD, Increase Calorie Intake, PPN/TPN Comments: Continue w/TPN as ordered: 95 g AA, 220 g dextrose, 20 g lipids Expected Outcomes/Goals: New goal 03/07: TPN for nutrition needs if continued aggressive care desired - met, new goal established New goal 03/08: TPN to meet >65% est needs while intubated Malnutrition Findings: Food and Nutrition Intake (Mod: <75% est energy req 7days Weight Status: Appropriate Justicifation of Admission Dx: Justifications for Admission: Justification of Admission Dx: Yes MARLYS ENCARNACION MD Mar 10, 2020 13:19
--- NOTE | 2020-03-10 14:11 | NUR ---
SEDATION VACATION at 1315. Versed and Fentanyl turned off. At 1400 Patient opens his eyes, raising his arms towards the ET tube. Patient agitated unable to follow commands. He was anxious and overbreathing the ventilator RR 28, HR 115, SBP 150's. Patient was re sedated with Versed at 5mg/hr and Fentanyl 50mcg/hr. Levophed held at this time will monitor if patient can maintain map >65.
[2020-03-10] MEDS: TAMSULOSIN 0.4 MG CAP.ER.24H. PO SCH (21:00)
[2020-03-10] MEDS ORDERED: TOTAL PARENTERAL NUTRITION IV SCH (22:00)
[2020-03-10] MEDS ORDERED: AMINO ACID IV SCH (22:00)
[2020-03-10] MEDS ORDERED: [UNRECOGNIZED DRUG - OTHER] IV SCH (22:00)
[2020-03-10] MEDS ORDERED: DEXTROSE 70% IV SCH (22:00)
[2020-03-11] VITALS (36 sets, daily range): BP systolic 75–163; BP diastolic 49–108
[2020-03-11] MEDS: PIPERACILLIN/TAZOBACTAM 3.375 GM in IV NORMAL SALINE 50ML 50 ML IV SCH ×5 (00:22→23:55)
[2020-03-11] MEDS: MIDAZOLAM HCL IV PRN ×2 (01:58→23:06)
[2020-03-11] MEDS: NORMAL SALINE IV PRN ×2 (01:58→23:06)
[2020-03-11 06:12] LABS: HEMATOCRIT 21.8 % (39.0-53.0); RED BLOOD COUNT 2.77 x10^6/uL (4.30-5.70); RED CELL DISTRIBUTION WIDTH 28.7 % (11.5-14.5); WHITE BLOOD COUNT 5.7 x10^3/uL (4.0-11.0)
[2020-03-11 06:21] LABS: CREATININE 0.5 mg/dL (0.7-1.3); GFR 163.9; MAGNESIUM 1.8 mg/dL (1.8-2.4); PHOSPHORUS 2.5 mg/dL (2.6-4.7); POTASSIUM 3.8 mmol/L (3.5-5.1)
[2020-03-11] MEDS: VASOPRESSIN 20 UNIT in IV DEXTROSE 5% 100ML 100 ML IV PRN (06:25)
--- NOTE | 2020-03-11 07:07 | RAD ---
PORTABLE CHEST 1V INDICATION: Reason: sedated on vent / Spl. Instructions: / History: . COMPARISON STUDY: 03/08/2020. FINDINGS: Life Support Devices: Stable endotracheal tube, enteric tube, left PICC. Lungs: Normal lung volume. Stable left basilar opacities. Pleura: Stable small left pleural effusion. Heart and Mediastinum: Stable cardiomediastinal silhouette and great vessels. IMPRESSION: 1. Stable left basilar opacities and small left pleural effusion. 2. Stable life support devices. Electronically signed by: Valentín Rosas MD (03/11/2020 7:04 AM) [facility]
[2020-03-11 08:09] LABS: BASE EXCESS ABG -3 mmol/L (-3-3); HCO3 ABG 23 mmol/L (21-28); PCO2 ABG 43 mmHg (35-46); PO2 ABG 127 mmHg (65-108); SAT O2 ABG 98 % (92-99)
--- NOTE | 2020-03-11 08:18 | PDOC ---
SURGICAL PROGRESS NOTE Subjective Sedated and ventilated Vital Signs Vital Signs Date Time Temp Pulse Resp B/P (MAP) Pulse Ox O2 Delivery O2 Flow Rate FiO2 03/11/20 08:00 57 12 84/52 (63) 100 Ventilator 03/11/20 04:00 97.2 97.2 I&O Intake and Output 03/11/20 07:00 Intake Total 3156.43 ml Output Total 2255 ml Balance 901.43 ml IV Total 3156.43 ml Output Urine Total 1130 ml Drainage Total 1125 ml PATIENT HAS A DOZIER: Yes General: Other (Sedated) HEENT: Other (NG tube in place minimal output) Lungs: Clear to auscultation Abdomen: Normal bowel sounds, Soft, No tenderness, Other (Wounds clean dry and intact, AVI drain with copious serous fluid) Extremities: Other (2+ edema) Labs Laboratory Tests Test 03/10/20 06:15 03/10/20 07:20 03/11/20 06:00 03/11/20 07:15 White Blood Count 7.9 x10^3/uL (4.0-11.0) 5.7 x10^3/uL (4.0-11.0) Red Blood Count 3.02 x10^6/uL (4.30-5.70) 2.77 x10^6/uL (4.30-5.70) Hemoglobin 7.6 g/dL (13.0-17.5) 7.0 g/dL (13.0-17.5) Hematocrit 23.9 % (39.0-53.0) 21.8 % (39.0-53.0) Mean Corpuscular Volume 79 fL (79-100) 79 fL (79-100) Mean Corpuscular Hemoglobin 25 pg (25-35) 25 pg (25-35) Mean Corpuscular Hemoglobin Concent 32 g/dL (31-37) 32 g/dL (31-37) Red Cell Distribution Width 28.4 % (11.5-14.5) 28.7 % (11.5-14.5) Platelet Count 167 x10^3/uL (140-400) 169 x10^3/uL (140-400) Sodium Level 129 mmol/L (136-145) 130 mmol/L (136-145) Potassium Level 3.8 mmol/L (3.5-5.1) 3.8 mmol/L (3.5-5.1) Chloride Level 101 mmol/L (98-107) 100 mmol/L (98-107) Carbon Dioxide Level 25 mmol/L (21-32) 27 mmol/L (21-32) Anion Gap 3 (6-14) 3 (6-14) Blood Urea Nitrogen 16 mg/dL (8-26) 14 mg/dL (8-26) Creatinine 0.5 mg/dL (0.7-1.3) 0.5 mg/dL (0.7-1.3) Estimated GFR (Cockcroft-Gault) 163.9 163.9 Glucose Level 120 mg/dL (70-99) 107 mg/dL (70-99) Calcium Level 6.0 mg/dL (8.5-10.1) 6.0 mg/dL (8.5-10.1) Phosphorus Level 2.3 mg/dL (2.6-4.7) 2.5 mg/dL (2.6-4.7) Magnesium Level 1.9 mg/dL (1.8-2.4) 1.8 mg/dL (1.8-2.4) Albumin 0.7 g/dL (3.4-5.0) O2 Saturation 97 % (92-99) Arterial Blood pH 7.40 (7.35-7.45) Arterial Blood pCO2 at Patient Temp 36 mmHg (35-46) Arterial Blood pO2 at Patient Temp 112 mmHg (65-108) Arterial Blood HCO3 22 mmol/L (21-28) Arterial Blood Base Excess -2 mmol/L (-3-3) FiO2 40 Ionized Calcium 1.07 mmol/L (1.13-1.32) Laboratory Tests Test 03/11/20 06:00 03/11/20 07:15 White Blood Count 5.7 x10^3/uL (4.0-11.0) Red Blood Count 2.77 x10^6/uL (4.30-5.70) Hemoglobin 7.0 g/dL (13.0-17.5) Hematocrit 21.8 % (39.0-53.0) Mean Corpuscular Volume 79 fL (79-100) Mean Corpuscular Hemoglobin 25 pg (25-35) Mean Corpuscular Hemoglobin Concent 32 g/dL (31-37) Red Cell Distribution Width 28.7 % (11.5-14.5) Platelet Count 169 x10^3/uL (140-400) Sodium Level 130 mmol/L (136-145) Potassium Level 3.8 mmol/L (3.5-5.1) Chloride Level 100 mmol/L (98-107) Carbon Dioxide Level 27 mmol/L (21-32) Anion Gap 3 (6-14) Blood Urea Nitrogen 14 mg/dL (8-26) Creatinine 0.5 mg/dL (0.7-1.3) Estimated GFR (Cockcroft-Gault) 163.9 Glucose Level 107 mg/dL (70-99) Calcium Level 6.0 mg/dL (8.5-10.1) Phosphorus Level 2.5 mg/dL (2.6-4.7) Magnesium Level 1.8 mg/dL (1.8-2.4) Ionized Calcium 1.07 mmol/L (1.13-1.32) Problem List Problems Medical Problems: (1) Anemia Status: Acute (2) Colonic mass Status: Acute (3) Fatigue Status: Acute (4) Hypocalcemia Status: Acute (5) Nausea & vomiting Status: Acute (6) SBO (small bowel obstruction) Status: Acute Assessment/Plan Status post colon resection for metastatic colon cancer Patient off pressors hemodynamically stable hemoglobin 7.0 to get 1 unit today Bowel function appears to be returning should be able to start tube feeds tomorrow per Dr. Jernigan Ventilator pulmonary status per pulmonology Continue supportive care Justicifation of Admission Dx: Justifications for Admission: Justification of Admission Dx: Yes TRISTIAN SCRUGGS MD Mar 11, 2020 08:18
[2020-03-11 08:22] LABS: FIO2 ABG 40%
[2020-03-11] MEDS: PANTOPRAZOLE IV PUSH 40 MG VIAL. IVP SCH (08:37)
[2020-03-11] MEDS: ENOXAPARIN 40 MG/0.4 ML SYRINGE. SQ SCH (08:38)
--- NOTE | 2020-03-11 08:38 | NUR ---
Lovenox administered per Dr Scales
[2020-03-11] MEDS: TPN PER PHARMACY MC PRN (08:52)
--- NOTE | 2020-03-11 08:54 | NUR ---
Pharmacy TPN Dosing Note S: FABIANO HELLER is a 69 year old M Currently receiving Central Continuous TPN started 03/08/20 B:Pertinent PMH: NPO/SBO LABS: Sodium: 130 Potassium: 3.8 Chloride: 100 Calcium: 6.0 Corrected Calcium: 8.64 Magnesium: 1.8 CO2: 27 SCr: 0.5 Glucose: 107 Albumin: 0.7 AST: 19 ALT: 17 TPN FORMULA: TPN TYPE: Central Continuous AMINO ACIDS: 95 gm DEXTROSE: 225 gm LIPIDS: 20 gm SODIUM CHLORIDE: 100 mEq SODIUM ACETATE: - mEq SODIUM PHOSPHATE: 15 mmol POTASSIUM CHLORIDE: 50 mEq POTASSIUM ACETATE: - mEq POTASSIUM PHOSPHATE: 18 mmol MAGNESIUM: 15 mEq CALCIUM: 10 mEq INSULIN: - units MULTIPLE VITAMIN: 10 ml TRACE ELEMENTS: 1 ml ml(s) TPN PLAN: 03/11 Repeat NaPhos bolus, cont same TPN R: Continue TPN Will monitor electrolytes, glucose, and tolerance to TPN. REYMUNDO ROMERO [facility], 03/11/20 [id number]
--- NOTE | 2020-03-11 09:12 | PDOC ---
PULMONARY PROGRESS NOTES Subjective Continues in A/C mode on Vent -- remains sedated, on vasopressin Status post colon resection for obstructing colon cancer HGB 7.0 this am, planning for transfusion Vitals Vital Signs Date Time Temp Pulse Resp B/P (MAP) Pulse Ox O2 Delivery O2 Flow Rate FiO2 03/11/20 09:00 98.4 59 14 87/52 (64) 100 Ventilator 98.4 Comments intubated/sedated Lungs: Clear Cardiovascular: S1, S2 Abdomen: Other (Dressing in place, jace drain ) Extremities: No Edema Skin: Warm Labs Laboratory Tests Test 03/10/20 06:15 03/10/20 07:20 03/11/20 06:00 03/11/20 07:15 White Blood Count 7.9 x10^3/uL (4.0-11.0) 5.7 x10^3/uL (4.0-11.0) Red Blood Count 3.02 x10^6/uL (4.30-5.70) 2.77 x10^6/uL (4.30-5.70) Hemoglobin 7.6 g/dL (13.0-17.5) 7.0 g/dL (13.0-17.5) Hematocrit 23.9 % (39.0-53.0) 21.8 % (39.0-53.0) Mean Corpuscular Volume 79 fL (79-100) 79 fL (79-100) Mean Corpuscular Hemoglobin 25 pg (25-35) 25 pg (25-35) Mean Corpuscular Hemoglobin Concent 32 g/dL (31-37) 32 g/dL (31-37) Red Cell Distribution Width 28.4 % (11.5-14.5) 28.7 % (11.5-14.5) Platelet Count 167 x10^3/uL (140-400) 169 x10^3/uL (140-400) Sodium Level 129 mmol/L (136-145) 130 mmol/L (136-145) Potassium Level 3.8 mmol/L (3.5-5.1) 3.8 mmol/L (3.5-5.1) Chloride Level 101 mmol/L (98-107) 100 mmol/L (98-107) Carbon Dioxide Level 25 mmol/L (21-32) 27 mmol/L (21-32) Anion Gap 3 (6-14) 3 (6-14) Blood Urea Nitrogen 16 mg/dL (8-26) 14 mg/dL (8-26) Creatinine 0.5 mg/dL (0.7-1.3) 0.5 mg/dL (0.7-1.3) Estimated GFR (Cockcroft-Gault) 163.9 163.9 Glucose Level 120 mg/dL (70-99) 107 mg/dL (70-99) Calcium Level 6.0 mg/dL (8.5-10.1) 6.0 mg/dL (8.5-10.1) Phosphorus Level 2.3 mg/dL (2.6-4.7) 2.5 mg/dL (2.6-4.7) Magnesium Level 1.9 mg/dL (1.8-2.4) 1.8 mg/dL (1.8-2.4) Albumin 0.7 g/dL (3.4-5.0) O2 Saturation 97 % (92-99) Arterial Blood pH 7.40 (7.35-7.45) Arterial Blood pCO2 at Patient Temp 36 mmHg (35-46) Arterial Blood pO2 at Patient Temp 112 mmHg (65-108) Arterial Blood HCO3 22 mmol/L (21-28) Arterial Blood Base Excess -2 mmol/L (-3-3) FiO2 40 Ionized Calcium 1.07 mmol/L (1.13-1.32) Test 03/11/20 08:00 O2 Saturation 98 % (92-99) Arterial Blood pH 7.35 (7.35-7.45) Arterial Blood pCO2 at Patient Temp 43 mmHg (35-46) Arterial Blood pO2 at Patient Temp 127 mmHg (65-108) Arterial Blood HCO3 23 mmol/L (21-28) Arterial Blood Base Excess -3 mmol/L (-3-3) FiO2 40% Laboratory Tests Test 03/11/20 06:00 03/11/20 07:15 03/11/20 08:00 White Blood Count 5.7 x10^3/uL (4.0-11.0) Red Blood Count 2.77 x10^6/uL (4.30-5.70) Hemoglobin 7.0 g/dL (13.0-17.5) Hematocrit 21.8 % (39.0-53.0) Mean Corpuscular Volume 79 fL (79-100) Mean Corpuscular Hemoglobin 25 pg (25-35) Mean Corpuscular Hemoglobin Concent 32 g/dL (31-37) Red Cell Distribution Width 28.7 % (11.5-14.5) Platelet Count 169 x10^3/uL (140-400) Sodium Level 130 mmol/L (136-145) Potassium Level 3.8 mmol/L (3.5-5.1) Chloride Level 100 mmol/L (98-107) Carbon Dioxide Level 27 mmol/L (21-32) Anion Gap 3 (6-14) Blood Urea Nitrogen 14 mg/dL (8-26) Creatinine 0.5 mg/dL (0.7-1.3) Estimated GFR (Cockcroft-Gault) 163.9 Glucose Level 107 mg/dL (70-99) Calcium Level 6.0 mg/dL (8.5-10.1) Phosphorus Level 2.5 mg/dL (2.6-4.7) Magnesium Level 1.8 mg/dL (1.8-2.4) Ionized Calcium 1.07 mmol/L (1.13-1.32) O2 Saturation 98 % (92-99) Arterial Blood pH 7.35 (7.35-7.45) Arterial Blood pCO2 at Patient Temp 43 mmHg (35-46) Arterial Blood pO2 at Patient Temp 127 mmHg (65-108) Arterial Blood HCO3 23 mmol/L (21-28) Arterial Blood Base Excess -3 mmol/L (-3-3) FiO2 40% Medications Active Scripts Medications Dose Route/Sig Max Daily Dose Days Date Category Flomax (Tamsulosin Hcl) 0.4 Mg Cap.er.24h 1 Cap PO QHS 03/02/20 Reported Comments CXR 03/11/20 IMPRESSION: 1. Stable left basilar opacities and small left pleural effusion. 2. Stable life support devices. Impression . IMPRESSION: 1. Acute hypoxemic respiratory failure, expected status post surgical intervention for colonic mass. 2. Obstructing colonic cancer. 3. History of prostate cancer. 4. Severe protein malnutrition present upon admission. 5. Tobacco dependent. 6. Chronic obstructive pulmonary disease. 7. SARS-CoV-2 negative. 8. Cholelithiasis. 9. Hyponatremia. 10. Protein malnutrition, present upon admission. 11. Benign prostatic hypertrophy. 12. S/p open right colon resection, partial resection of duodenum, placement of duodenostomy tube, cholecystectomy, ghost ileostomy 13. Acute blood loss anemia 14. Respiratory alkalosis 15. Hypocalcemia-- correct calcium WNL Plan . Case discussed with DESIGN TECHNOLOGY PROFESSOR, RN, and RT Will proceed with pressure support during day Continue A/C mode, follow CXR and ABG, make changes as needed Moitor HGB and transfuse per surgery. follow other surgery recs-- planning for transfusion today Follow nephrology recs Cont. vasopressors to Keep MAP above 65--now off levo Cont. TPN for nutrition Cont. ABX DVT GI prophylaxis D/W RN and RT Total cumulative critical care time of 30 minutes reviewing data, labs, chest x-ray and formulating a plan. DOTTIE WILBURN MD Mar 11, 2020 09:11
[2020-03-11] MEDS ORDERED: ATROPINE 0.5 MG/5 ML DISP.SYRINGE. IV PRN (10:00)
[2020-03-11] MEDS ORDERED: SODIUM PHOSPHATE 15 MMOL in IV NORMAL SALINE 250ML 250 ML IV ONE (10:00)
[2020-03-11] MEDS ORDERED: IV NORMAL SALINE 500ML BAG 500 ML IV PRN (10:00)
[2020-03-11] MEDS: DEXMEDETOMIDINE 400 MCG in IV NORMAL SALINE 100ML 96 ML IV PRN (10:15)
--- NOTE | 2020-03-11 12:28 | PDOC ---
SUBJECTIVE ROS Remains Intubated ,On MV , sedation off, Trialing later today OBJECTIVE Vital Signs Vital Signs Date Time Temp Pulse Resp B/P (MAP) Pulse Ox O2 Delivery O2 Flow Rate FiO2 03/11/20 12:00 97.9 86 12 104/65 (78) 100 Ventilator 97.9 I & 0 Intake and Output 03/11/20 07:00 Intake Total 3156.43 ml Output Total 2255 ml Balance 901.43 ml IV Total 3156.43 ml Output Urine Total 1130 ml Drainage Total 1125 ml PHYSICAL EXAM Physical Exam General Appearance: no apparent distress HEEN Intubated Skin: warm Respiratory: decreased at bases Heart: S1S2 Abdomen: s/p Surgery Genitourinary: Booth + Neurology: Intubated DIAGNOSIS/ASSESSMENT Assessment & Plan Hyponatremia - Na stable GEORGES- Cr Normal- may not be accurate 2/2 severe malnutrition but stable Off pressors, Supportive care , avoid nephrotoxins HypoCalcemia- Albumin 0.8, iCa low, replace IV and in TPN HyPhos- Replace as indicated 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 S/P Open right colon resection, partial resection of duodenum, placement of duodenostomy tube, cholecystectomy with cholangiogram, ghost ileostomy Anemia- s/p PRBC Severe protein calorie malnutrition- On TPN HX of prostate cancer BPH COMMENT/RELEVANT DATA Meds Current Medications Medications (Trade) Dose Ordered Sig/Faisal Start Time Stop Time Status Last Admin Dose Admin Acetaminophen (Tylenol Supp) 650 mg PRN Q4HRS PRN 03/03/20 09:45 Albumin Human 500 ml @ As Directed STK-MED ONCE 03/05/20 13:13 03/05/20 13:14 DC Amino Acids/ Glycerin/ Electrolytes 1,000 ml @ 80 mls/hr [id number] 03/03/20 15:00 03/07/20 13:22 DC 03/07/20 02:41 80 MLS/HR Atropine Sulfate (ATROPINE 0.5mg SYRINGE) 0.5 mg PRN Q5MIN PRN 03/11/20 10:00 Bisacodyl (Dulcolax Supp) 10 mg 1X ONCE 03/04/20 10:00 03/04/20 10:05 DC 03/04/20 12:18 10 MG Bisacodyl (Dulcolax Tab) 10 mg PRN DAILY PRN 03/03/20 09:45 03/06/20 10:25 DC 03/03/20 13:47 10 MG Bupivacaine HCl/ Epinephrine Bitart (Sensorcain-Epi 0.5%-1:629795 Mpf) 30 ml STK-MED ONCE 03/05/20 10:42 03/05/20 10:42 DC Calcium Gluconate (Calcium Gluconate) 1,000 mg 1X ONCE 03/11/20 12:30 03/11/20 12:31 Cefoxitin Sodium (Mefoxin) 1 gm STK-MED ONCE 03/05/20 12:57 03/05/20 12:57 DC Dexamethasone Sodium Phosphate (Decadron) 4 mg STK-MED ONCE 03/05/20 10:23 03/05/20 10:23 DC Dexmedetomidine HCl 400 mcg/ Sodium Chloride 100 ml @ 0 mls/hr CONT PRN 03/11/20 10:00 03/11/20 10:15 3.8 MLS/HR Docusate Sodium (Colace) 100 mg DAILY 03/03/20 12:00 03/06/20 10:25 DC 03/04/20 09:21 100 MG Enoxaparin Sodium (Lovenox 40mg Syringe) 40 mg Q24H 03/06/20 08:00 03/11/20 08:38 40 MG Enoxaparin Sodium (Lovenox Per Pharmacy Prophylaxis Dosing) 1 each PRN DAILY PRN 03/02/20 20:30 Cancel Ephedrine Sulfate (ePHEDrine PF IN SALINE SYRINGE) 50 mg STK-MED ONCE 03/05/20 12:13 03/05/20 12:14 DC Fentanyl Citrate 30 ml @ 2.5 mls/hr CONT PRN PRN 03/05/20 15:15 03/11/20 07:49 2.5 MLS/HR Fentanyl Citrate (Fentanyl 2ml Vial) 100 mcg STK-MED ONCE 03/05/20 10:24 03/05/20 10:24 DC Furosemide (Lasix) 40 mg 1X ONCE 03/03/20 15:00 03/03/20 15:01 DC 03/03/20 16:48 40 MG Hydromorphone HCl (Dilaudid) 0.5 mg PRN Q10MIN PRN 03/05/20 07:15 03/05/20 20:00 DC Info (CONTRAST GIVEN -- Rx MONITORING) 1 each PRN DAILY PRN 03/03/20 16:15 03/05/20 16:15 DC Info (Tpn Per Pharmacy) 1 each PRN DAILY PRN 03/08/20 11:00 03/11/20 08:52 1 EACH Iohexol (Omnipaque 300 Mg/ml) 50 ml STK-MED ONCE 03/05/20 10:41 03/05/20 10:41 DC 03/05/20 11:43 27 ML Lidocaine (Lidoderm) 1 patch DAILY 03/04/20 16:30 Cancel Lidocaine HCl (Lidocaine Pf 2% Vial) 5 ml STK-MED ONCE 03/05/20 10:23 03/05/20 10:23 DC Lidocaine HCl (Xylocaine-Mpf 1% 2ml Vial) 2 ml 1X PRN PRN 03/05/20 07:15 03/05/20 20:00 DC Magnesium Sulfate 50 ml @ 25 mls/hr 1X ONCE 03/08/20 08:00 03/08/20 09:59 DC 03/08/20 08:00 25 MLS/HR Midazolam HCl 100 mg/Sodium Chloride 100 ml @ 1 mls/hr CONT PRN 03/05/20 15:15 03/11/20 01:58 7 MLS/HR Miscellaneous (Lidoderm Patch Removal) 1 ea QHS 03/04/20 21:00 Cancel Morphine Sulfate 30 ml @ 0 mls/hr CONT PRN PRN 03/05/20 16:15 03/06/20 09:48 DC Morphine Sulfate (Morphine Sulfate) 1 mg PRN Q10MIN PRN 03/05/20 07:15 03/05/20 20:00 DC Naloxone HCl (Narcan) 0.4 mg PRN Q2MIN PRN 03/05/20 16:15 Norepinephrine Bitartrate 8 mg/ Dextrose 258 ml @ 15.287 mls/ hr CONT PRN 03/05/20 15:30 03/08/20 11:23 5.7 MLS/HR Ondansetron HCl (Zofran) 4 mg PRN Q6HRS PRN 03/05/20 16:15 Pantoprazole Sodium (PROTONIX VIAL for IV PUSH) 40 mg DAILYAC 03/05/20 10:30 03/11/20 08:37 40 MG Phenylephrine HCl (Devin-Synephrine Inj) 10 mg STK-MED ONCE 03/05/20 14:35 03/05/20 14:36 DC Phenylephrine HCl (PHENYLEPHRINE in 0.9% NACL PF) 1 mg STK-MED ONCE 03/05/20 12:13 03/05/20 12:14 DC Piperacillin Sod/ Tazobactam Sod 3.375 gm/Sodium Chloride 50 ml @ 100 mls/hr Q6HRS 03/05/20 17:00 03/11/20 12:01 100 MLS/HR Polyethylene Glycol (miraLAX PACKET) 17 gm QHS 03/03/20 21:00 03/06/20 10:25 DC 03/04/20 21:03 17 GM Potassium Chloride/Water 100 ml @ 100 mls/hr 1X ONCE 03/08/20 16:00 03/08/20 16:59 DC 03/08/20 15:51 100 MLS/HR Potassium Phosphate 13.6 mmol/Sodium Chloride 254.5333 ml @ 62.5 mls/hr Q4H 03/08/20 08:30 03/08/20 20:29 DC 03/08/20 16:52 62.5 MLS/HR Prochlorperazine Edisylate (Compazine) 5 mg PACU PRN PRN 03/05/20 07:15 03/06/20 07:14 DC Propofol (Diprivan) 200 mg STK-MED ONCE 03/05/20 10:23 03/05/20 10:23 DC Psyllium Hydrophilic Mucilloid (Metamucil Fiber Packet) 1 pkt QHS 03/03/20 21:00 03/06/20 10:25 DC 03/04/20 21:03 1 PKT Ringer's Solution 1,000 ml @ 999 mls/hr 1X ONCE 03/06/20 18:15 03/06/20 19:15 DC 03/06/20 18:43 999 MLS/HR Rocuronium [place] (Zemuron) 50 mg STK-MED ONCE 03/05/20 12:27 03/05/20 12:27 DC Sevoflurane (Ultane) 90 ml STK-MED ONCE 03/05/20 14:30 03/05/20 14:30 DC Sodium Chloride 500 ml @ 500 mls/hr 1X PRN PRN 03/11/20 10:00 Sodium Chloride (Normal Saline Flush) 3 ml QSHIFT PRN 03/05/20 16:15 Sodium Chloride 100 meq/Potassium Chloride 50 meq/ Potassium Phosphate 18 mmol/ Magnesium Sulfate 15 meq/Calcium Gluconate 10 meq/ Multivitamins 10 ml/Chromium/ Copper/Manganese/ Seleni/Zn 1 ml/ Total Parenteral Nutrition/Amino Acids/Dextrose/ Fat Emulsion Intravenous 1,920 ml @ 80 mls/hr TPN CONT 03/09/20 22:00 03/10/20 21:59 DC 03/09/20 22:00 80 MLS/HR Sodium Chloride 100 meq/Sodium Phosphate 15 mmol/ Potassium Chloride 50 meq/ Potassium Phosphate 18 mmol/ Magnesium Sulfate 15 meq/Calcium Gluconate 10 meq/ Multivitamins 10 ml/Chromium/ Copper/Manganese/ Seleni/Zn 1 ml/ Total Parenteral Nutrition/Amino Acids/Dextrose/ Fat Emulsion Intravenous 1,920 ml @ 80 mls/hr TPN CONT 03/11/20 22:00 03/12/20 21:59 Sodium Phosphate 15 mmol/Sodium Chloride 255 ml @ 63.75 mls/ hr 1X ONCE 03/11/20 10:00 03/11/20 13:59 03/11/20 12:00 63.75 MLS/HR Succinylcholine Chloride (Anectine) 200 mg STK-MED ONCE 03/05/20 10:23 03/05/20 10:23 DC Tamsulosin HCl (Flomax) 0.4 mg HS 03/02/20 23:45 03/04/20 21:03 0.4 MG Vasopressin 20 unit/Dextrose 101 ml @ 12 mls/hr CONT PRN 03/05/20 20:00 03/11/20 06:25 12 MLS/HR Lab Laboratory Tests Test 03/11/20 06:00 03/11/20 07:15 03/11/20 08:00 White Blood Count 5.7 x10^3/uL (4.0-11.0) Red Blood Count 2.77 x10^6/uL (4.30-5.70) Hemoglobin 7.0 g/dL (13.0-17.5) Hematocrit 21.8 % (39.0-53.0) Mean Corpuscular Volume 79 fL (79-100) Mean Corpuscular Hemoglobin 25 pg (25-35) Mean Corpuscular Hemoglobin Concent 32 g/dL (31-37) Red Cell Distribution Width 28.7 % (11.5-14.5) Platelet Count 169 x10^3/uL (140-400) Sodium Level 130 mmol/L (136-145) Potassium Level 3.8 mmol/L (3.5-5.1) Chloride Level 100 mmol/L (98-107) Carbon Dioxide Level 27 mmol/L (21-32) Anion Gap 3 (6-14) Blood Urea Nitrogen 14 mg/dL (8-26) Creatinine 0.5 mg/dL (0.7-1.3) Estimated GFR (Cockcroft-Gault) 163.9 Glucose Level 107 mg/dL (70-99) Calcium Level 6.0 mg/dL (8.5-10.1) Phosphorus Level 2.5 mg/dL (2.6-4.7) Magnesium Level 1.8 mg/dL (1.8-2.4) Ionized Calcium 1.07 mmol/L (1.13-1.32) O2 Saturation 98 % (92-99) Arterial Blood pH 7.35 (7.35-7.45) Arterial Blood pCO2 at Patient Temp 43 mmHg (35-46) Arterial Blood pO2 at Patient Temp 127 mmHg (65-108) Arterial Blood HCO3 23 mmol/L (21-28) Arterial Blood Base Excess -3 mmol/L (-3-3) FiO2 40% Results All relevant outside records, renal labs, imaging studies, telemetry/EKG's were reviewed. Justicifation of Admission Dx: Justifications for Admission: Justification of Admission Dx: Yes SUZANNE KATHLEEN MD Mar 11, 2020 12:28
[2020-03-11] MEDS ORDERED: CALCIUM GLUCONATE 1,000 MG/10 ML VIAL. IVP ONE (12:30)
--- NOTE | 2020-03-11 15:44 | PDOC ---
PROGRESS NOTES Chief Complaint Chief Complaint nause and vomiting with abd pain Fatigue Weight Loss Small bowel dilatation/obstruction suspicious for primary colon cancer 10.5cm mass with surrounding lymph nodes concerning for metastatic disease 10.5 cm colonic mass. Colonic mass abuts the right hepatic lobe inferior margin as well as the duodenum and anterior right kidney (extending through or deforming Gerota's fascia), suspicious for primary colon cancer. Prominent associated lymph nodes are seen, possibly metastatic Obstructing right colon cancer Dialated Appendix fatty liver dz Gallstones Microcytic Anemia Alkaline Phosphatemia Hyponatremia Mild Leukocytosis Tachycardia H/o prostate cancer in remission Severe protein calorie malnutrition LE edema - BNP of 350, no cardiac history and no symptoms of CHF. This is unlikely to be cardiac related at all. Likely likely lymphatic obstruction due to abdominal mass. Hyponatremia - likely due to poor PO intake, SERUM OSMOLALITY PENDING HYPOTENSION, POSSIBLE SEPSIS NPO vent support post=op s/p open right colon POD # 1 remains critically ill 38 min cc time History of Present Illness History of Present Illness wean pressors, wean sedation, doing better septic and shock cont current Vitals Vitals Vital Signs Date Time Temp Pulse Resp B/P (MAP) Pulse Ox O2 Delivery O2 Flow Rate FiO2 03/11/20 15:33 Mechanical Ventilator 03/11/20 15:00 86 18 142/89 (106) 98 03/11/20 12:00 97.9 97.9 Physical Exam Physical Exam SEDATED ON VENT General: Other (Sedated) Heart: Regular rate Lungs: Clear Abdomen: Normal bowel sounds, Soft, No tenderness, Other (Wounds clean dry and intact, AVI drain with copious serous fluid) Extremities: Other (2+ edema) Skin: No significant lesion Labs LABS Laboratory Tests Test 03/11/20 06:00 03/11/20 07:15 03/11/20 08:00 White Blood Count 5.7 x10^3/uL (4.0-11.0) Red Blood Count 2.77 x10^6/uL (4.30-5.70) Hemoglobin 7.0 g/dL (13.0-17.5) Hematocrit 21.8 % (39.0-53.0) Mean Corpuscular Volume 79 fL (79-100) Mean Corpuscular Hemoglobin 25 pg (25-35) Mean Corpuscular Hemoglobin Concent 32 g/dL (31-37) Red Cell Distribution Width 28.7 % (11.5-14.5) Platelet Count 169 x10^3/uL (140-400) Sodium Level 130 mmol/L (136-145) Potassium Level 3.8 mmol/L (3.5-5.1) Chloride Level 100 mmol/L (98-107) Carbon Dioxide Level 27 mmol/L (21-32) Anion Gap 3 (6-14) Blood Urea Nitrogen 14 mg/dL (8-26) Creatinine 0.5 mg/dL (0.7-1.3) Estimated GFR (Cockcroft-Gault) 163.9 Glucose Level 107 mg/dL (70-99) Calcium Level 6.0 mg/dL (8.5-10.1) Phosphorus Level 2.5 mg/dL (2.6-4.7) Magnesium Level 1.8 mg/dL (1.8-2.4) Ionized Calcium 1.07 mmol/L (1.13-1.32) O2 Saturation 98 % (92-99) Arterial Blood pH 7.35 (7.35-7.45) Arterial Blood pCO2 at Patient Temp 43 mmHg (35-46) Arterial Blood pO2 at Patient Temp 127 mmHg (65-108) Arterial Blood HCO3 23 mmol/L (21-28) Arterial Blood Base Excess -3 mmol/L (-3-3) FiO2 40% Assessment and Plan Assessmemt and Plan Problems Medical Problems: (1) Anemia Status: Acute (2) Colonic mass Status: Acute (3) Fatigue Status: Acute (4) Hypocalcemia Status: Acute (5) Nausea & vomiting Status: Acute (6) SBO (small bowel obstruction) Status: Acute Comment Review of Relevant I have reviewed the following items radhames (where applicable) has been applied. Labs Laboratory Tests Test 03/10/20 06:15 03/10/20 07:20 03/11/20 06:00 03/11/20 07:15 White Blood Count 7.9 x10^3/uL (4.0-11.0) 5.7 x10^3/uL (4.0-11.0) Red Blood Count 3.02 x10^6/uL (4.30-5.70) 2.77 x10^6/uL (4.30-5.70) Hemoglobin 7.6 g/dL (13.0-17.5) 7.0 g/dL (13.0-17.5) Hematocrit 23.9 % (39.0-53.0) 21.8 % (39.0-53.0) Mean Corpuscular Volume 79 fL (79-100) 79 fL (79-100) Mean Corpuscular Hemoglobin 25 pg (25-35) 25 pg (25-35) Mean Corpuscular Hemoglobin Concent 32 g/dL (31-37) 32 g/dL (31-37) Red Cell Distribution Width 28.4 % (11.5-14.5) 28.7 % (11.5-14.5) Platelet Count 167 x10^3/uL (140-400) 169 x10^3/uL (140-400) Sodium Level 129 mmol/L (136-145) 130 mmol/L (136-145) Potassium Level 3.8 mmol/L (3.5-5.1) 3.8 mmol/L (3.5-5.1) Chloride Level 101 mmol/L (98-107) 100 mmol/L (98-107) Carbon Dioxide Level 25 mmol/L (21-32) 27 mmol/L (21-32) Anion Gap 3 (6-14) 3 (6-14) Blood Urea Nitrogen 16 mg/dL (8-26) 14 mg/dL (8-26) Creatinine 0.5 mg/dL (0.7-1.3) 0.5 mg/dL (0.7-1.3) Estimated GFR (Cockcroft-Gault) 163.9 163.9 Glucose Level 120 mg/dL (70-99) 107 mg/dL (70-99) Calcium Level 6.0 mg/dL (8.5-10.1) 6.0 mg/dL (8.5-10.1) Phosphorus Level 2.3 mg/dL (2.6-4.7) 2.5 mg/dL (2.6-4.7) Magnesium Level 1.9 mg/dL (1.8-2.4) 1.8 mg/dL (1.8-2.4) Albumin 0.7 g/dL (3.4-5.0) O2 Saturation 97 % (92-99) Arterial Blood pH 7.40 (7.35-7.45) Arterial Blood pCO2 at Patient Temp 36 mmHg (35-46) Arterial Blood pO2 at Patient Temp 112 mmHg (65-108) Arterial Blood HCO3 22 mmol/L (21-28) Arterial Blood Base Excess -2 mmol/L (-3-3) FiO2 40 Ionized Calcium 1.07 mmol/L (1.13-1.32) Test 03/11/20 08:00 O2 Saturation 98 % (92-99) Arterial Blood pH 7.35 (7.35-7.45) Arterial Blood pCO2 at Patient Temp 43 mmHg (35-46) Arterial Blood pO2 at Patient Temp 127 mmHg (65-108) Arterial Blood HCO3 23 mmol/L (21-28) Arterial Blood Base Excess -3 mmol/L (-3-3) FiO2 40% Laboratory Tests Test 03/11/20 06:00 03/11/20 07:15 03/11/20 08:00 White Blood Count 5.7 x10^3/uL (4.0-11.0) Red Blood Count 2.77 x10^6/uL (4.30-5.70) Hemoglobin 7.0 g/dL (13.0-17.5) Hematocrit 21.8 % (39.0-53.0) Mean Corpuscular Volume 79 fL (79-100) Mean Corpuscular Hemoglobin 25 pg (25-35) Mean Corpuscular Hemoglobin Concent 32 g/dL (31-37) Red Cell Distribution Width 28.7 % (11.5-14.5) Platelet Count 169 x10^3/uL (140-400) Sodium Level 130 mmol/L (136-145) Potassium Level 3.8 mmol/L (3.5-5.1) Chloride Level 100 mmol/L (98-107) Carbon Dioxide Level 27 mmol/L (21-32) Anion Gap 3 (6-14) Blood Urea Nitrogen 14 mg/dL (8-26) Creatinine 0.5 mg/dL (0.7-1.3) Estimated GFR (Cockcroft-Gault) 163.9 Glucose Level 107 mg/dL (70-99) Calcium Level 6.0 mg/dL (8.5-10.1) Phosphorus Level 2.5 mg/dL (2.6-4.7) Magnesium Level 1.8 mg/dL (1.8-2.4) Ionized Calcium 1.07 mmol/L (1.13-1.32) O2 Saturation 98 % (92-99) Arterial Blood pH 7.35 (7.35-7.45) Arterial Blood pCO2 at Patient Temp 43 mmHg (35-46) Arterial Blood pO2 at Patient Temp 127 mmHg (65-108) Arterial Blood HCO3 23 mmol/L (21-28) Arterial Blood Base Excess -3 mmol/L (-3-3) FiO2 40% Microbiology 03/02/20 Urine Culture - Final, Complete Medications Current Medications Sodium Chloride 1,000 ml @ 1,000 mls/hr 1X ONCE IV Last administered on 03/02/20at 17:05; Start 03/02/20 at 16:45; Stop 03/02/20 at 17:44; Status DC Calcium Gluconate (Calcium Gluconate) 1,000 mg 1X ONCE IVP Last administered on 03/02/20at 18:21; Start 03/02/20 at 18:15; Stop 03/02/20 at 18:18; Status DC Iohexol (Omnipaque 300 Mg/ml) 75 ml 1X ONCE IV Last administered on 03/02/20at 18:34; Start 03/02/20 at 18:30; Stop 03/02/20 at 18:31; Status DC Pantoprazole Sodium (PROTONIX VIAL for IV PUSH) 40 mg 1X ONCE IVP Last administered on 03/02/20at 18:41; Start 03/02/20 at 18:45; Stop 03/02/20 at 18:46; Status DC Sodium Chloride 1,000 ml @ 100 mls/hr 1X ONCE IV Last administered on 03/02/20at 19:04; Start 03/02/20 at 18:45; Stop 03/03/20 at 04:44; Status DC Enoxaparin Sodium (Lovenox Per Pharmacy Prophylaxis Dosing) 1 each PRN DAILY PRN MC SEE COMMENTS; Start 03/02/20 at 20:30; Status Cancel Enoxaparin Sodium (Lovenox 40mg Syringe) 40 mg Q24H SQ Last administered on 03/02/20at 23:48; Start 03/02/20 at 21:00; Stop 03/03/20 at 08:48; Status DC Tamsulosin HCl (Flomax) 0.4 mg HS PO Last administered on 03/04/20at 21:03; Start 03/02/20 at 23:45 Sodium Chloride 1,000 ml @ 100 mls/hr Q10H IV Last administered on 03/03/20at 11:07; Start 03/03/20 at 10:00; Stop 03/03/20 at 14:58; Status DC Ondansetron HCl (Zofran) 4 mg PRN Q4HRS PRN IV NAUSEA/VOMITING Last admi nistered on 03/04/20at 22:31; Start 03/03/20 at 09:45; Stop 03/05/20 at 16:15; Status DC Acetaminophen (Tylenol Supp) 650 mg PRN Q4HRS PRN VA TEMP OVER 100.4F OR MILD PAIN; Start 03/03/20 at 09:45 Polyethylene Glycol (miraLAX PACKET) 17 gm DAILY PO Last administered on 03/04/20at 09:21; Start 03/03/20 at 10:00; Stop 03/06/20 at 10:25; Status DC Bisacodyl (Dulcolax Supp) 10 mg PRN DAILY PRN VA CONSTIPATION; Start 03/03/20 at 09:45; Stop 03/06/20 at 10:25; Status DC Bisacodyl (Dulcolax Tab) 10 mg PRN DAILY PRN PO CONSTIPATION Last administered on 03/03/20at 13:47; Start 03/03/20 at 09:45; Stop 03/06/20 at 10:25; Status DC Psyllium Hydrophilic Mucilloid (Metamucil Fiber Packet) 1 pkt QHS PO Last administered on 03/04/20at 21:03; Start 03/03/20 at 21:00; Stop 03/06/20 at 10:25; Status DC Polyethylene Glycol (miraLAX PACKET) 17 gm QHS PO Last administered on 03/04/20at 21:03; Start 03/03/20 at 21:00; Stop 03/06/20 at 10:25; Status DC Docusate Sodium (Colace) 100 mg DAILY PO Last administered on 03/04/20at 09:21; Start 03/03/20 at 12:00; Stop 03/06/20 at 10:25; Status DC Amino Acids/ Glycerin/ Electrolytes 1,000 ml @ 80 mls/hr [id number] IV Last administered on 03/07/20at 02:41; Start 03/03/20 at 15:00; Stop 03/07/20 at 13:22; Status DC Furosemide (Lasix) 40 mg 1X ONCE IVP Last administered on 03/03/20at 16:48; Start 03/03/20 at 15:00; Stop 03/03/20 at 15:01; Status DC Iohexol (Omnipaque 300 Mg/ml) 75 ml 1X ONCE IV Last administered on 03/03/20at 16:33; Start 03/03/20 at 16:15; Stop 03/03/20 at 16:16; Status DC Info (CONTRAST GIVEN -- Rx MONITORING) 1 each PRN DAILY PRN MC SEE COMMENTS; Start 03/03/20 at 16:15; Stop 03/05/20 at 16:15; Status DC Bisacodyl (Dulcolax Supp) 10 mg 1X ONCE VA Last administered on 03/04/20at 12:18; Start 03/04/20 at 10:00; Stop 03/04/20 at 10:05; Status DC Cefoxitin Sodium (Mefoxin) 2 gm 1X PREOP IVP Last administered on 03/05/20at 13:09; Start 03/05/20 at 10:00; Stop 03/08/20 at 11:05; Status DC Lidocaine (Lidoderm) 1 patch DAILY TD ; Start 03/04/20 at 16:30; Status Cancel Miscellaneous (Lidoderm Patch Removal) 1 ea QHS MC ; Start 03/04/20 at 21:00; Status Cancel Ondansetron HCl (Zofran) 4 mg PRN Q6HRS PRN IVP NAUSEA/VOMITING; Start 03/05/20 at 07:15; Stop 03/05/20 at 20:00; Status DC Fentanyl Citrate (Fentanyl 2ml Vial) 25 mcg PRN Q5MIN PRN IVP MILD PAIN 1-3; Start 03/05/20 at 07:15; Stop 03/05/20 at 20:00; Status DC Fentanyl Citrate (Fentanyl 2ml Vial) 50 mcg PRN Q5MIN PRN IVP MODERATE TO SEVERE PAIN; Start 03/05/20 at 07:15; Stop 03/05/20 at 20:00; Status DC Morphine Sulfate (Morphine Sulfate) 1 mg PRN Q10MIN PRN IVP SEVERE PAIN 7-10; Start 03/05/20 at 07:15; Stop 03/05/20 at 20:00; Status DC Ringer's Solution 1,000 ml @ 30 mls/hr Q24H IV Last administered on 03/05/20at 09:59; Start 03/05/20 at 07:05; Stop 03/05/20 at 19:04; Status DC Lidocaine HCl (Xylocaine-Mpf 1% 2ml Vial) 2 ml 1X PRN PRN ID IV START; Start 03/05/20 at 07:15; Stop 03/05/20 at 20:00; Status DC Hydromorphone HCl (Dilaudid) 0.5 mg PRN Q10MIN PRN IVP SEV PAIN, Second choice; Start 03/05/20 at 07:15; Stop 03/05/20 at 20:00; Status DC Prochlorperazine Edisylate (Compazine) 5 mg PACU PRN PRN IVP NAUSEA, MRX1; Start 03/05/20 at 07:15; Stop 03/06/20 at 07:14; Status DC Pantoprazole Sodium (PROTONIX VIAL for IV PUSH) 40 mg DAILYAC IVP Last administered on 03/11/20at 08:37; Start 03/05/20 at 10:30 Propofol (Diprivan) 200 mg STK-MED ONCE IV ; Start 03/05/20 at 10:23; Stop 03/05/20 at 10:23; Status DC Lidocaine HCl (Lidocaine Pf 2% Vial) 5 ml STK-MED ONCE .ROUTE ; Start 03/05/20 at 10:23; Stop 03/05/20 at 10:23; Status DC Ondansetron HCl (Zofran) 4 mg STK-MED ONCE .ROUTE ; Start 03/05/20 at 10:23; Stop 03/05/20 at 10:23; Status DC Dexamethasone Sodium Phosphate (Decadron) 4 mg STK-MED ONCE .ROUTE ; Start 03/05/20 at 10:23; Stop 03/05/20 at 10:23; Status DC Succinylcholine Chloride (Anectine) 200 mg STK-MED ONCE .ROUTE ; Start 03/05/20 at 10:23; Stop 03/05/20 at 10:23; Status DC Rocuronium [place] (Zemuron) 50 mg STK-MED ONCE .ROUTE ; Start 03/05/20 at 10:24; Stop 03/05/20 at 10:24; Status DC Fentanyl Citrate (Fentanyl 2ml Vial) 100 mcg STK-MED ONCE .ROUTE ; Start 03/05/20 at 10:24; Stop 03/05/20 at 10:24; Status DC Iohexol (Omnipaque 300 Mg/ml) 50 ml STK-MED ONCE .ROUTE Last administered on 03/05/20at 11:43; Start 03/05/20 at 10:41; Stop 03/05/20 at 10:41; Status DC Bupivacaine HCl/ Epinephrine Bitart (Sensorcain-Epi 0.5%-1:[id number] Mpf) 30 ml STK-MED ONCE .ROUTE ; Start 03/05/20 at 10:42; Stop 03/05/20 at 10:42; Status DC Phenylephrine HCl (PHENYLEPHRINE in 0.9% NACL PF) 1 mg STK-MED ONCE IV ; Start 03/05/20 at 12:13; Stop 03/05/20 at 12:14; Status DC Ephedrine Sulfate (ePHEDrine PF IN SALINE SYRINGE) 50 mg STK-MED ONCE IV ; S tart 03/05/20 at 12:13; Stop 03/05/20 at 12:14; Status DC Phenylephrine HCl (Devin-Synephrine Inj) 10 mg STK-MED ONCE .ROUTE ; Start 03/05/20 at 12:15; Stop 03/05/20 at 12:15; Status DC Rocuronium [place] (Zemuron) 50 mg STK-MED ONCE .ROUTE ; Start 03/05/20 at 12:27; Stop 03/05/20 at 12:27; Status DC Cefoxitin Sodium (Mefoxin) 1 gm STK-MED ONCE IVP ; Start 03/05/20 at 12:57; Stop 03/05/20 at 12:57; Status DC Albumin Human 500 ml @ As Directed STK-MED ONCE IV ; Start 03/05/20 at 13:08; Stop 03/05/20 at 13:08; Status DC Albumin Human 500 ml @ As Directed STK-MED ONCE IV ; Start 03/05/20 at 13:13; Stop 03/05/20 at 13:14; Status DC Phenylephrine HCl (Devin-Synephrine Inj) 10 mg STK-MED ONCE .ROUTE ; Start 03/05/20 at 13:35; Stop 03/05/20 at 13:35; Status DC Phenylephrine HCl (Devin-Synephrine Inj) 10 mg STK-MED ONCE .ROUTE ; Start 03/05/20 at 13:48; Stop 03/05/20 at 13:49; Status DC Sevoflurane (Ultane) 90 ml STK-MED ONCE IH ; Start 03/05/20 at 14:30; Stop 03/05/20 at 14:30; Status DC Phenylephrine HCl (Devin-Synephrine Inj) 10 mg STK-MED ONCE .ROUTE ; Start 03/05/20 at 14:35; Stop 03/05/20 at 14:36; Status DC Midazolam HCl 100 mg/Sodium Chloride 100 ml @ 1 mls/hr CONT PRN IV SEE I/O RECORD Last administered on 03/11/20at 01:58; Start 03/05/20 at 15:15 Fentanyl Citrate 30 ml @ 2.5 mls/hr CONT PRN PRN IV PER PROTOCOL Last administered on 03/11/20at 07:49; Start 03/05/20 at 15:15 Naloxone HCl (Narcan) 0.4 mg PRN Q2MIN PRN IV SEE INSTRUCTIONS; Start 03/05/20 at 15:15; Stop 03/06/20 at 09:45; Status DC Sodium Chloride 1,000 ml @ 25 mls/hr Q24H IV ; Start 03/05/20 at 15:13; Stop 03/06/20 at 14:24; Status DC Norepinephrine Bitartrate 8 mg/ Dextrose 258 ml @ 15.287 mls/ hr CONT PRN IV PER PROTOCOL Last administered on 03/08/20at 11:23; Start 03/05/20 at 15:30 Enoxaparin Sodium (Lovenox 40mg Syringe) 40 mg Q24H SQ Last administered on 03/11/20at 08:38; Start 03/06/20 at 08:00 Sodium Chloride (Normal Saline Flush) 3 ml QSHIFT PRN IV AFTER MEDS AND BLOOD DRAWS; Start 03/05/20 at 16:15 Ringer's Solution 1,000 ml @ 100 mls/hr Q10H IV Last administered on 03/08/20at 11:19; Start 03/05/20 at 16:09; Stop 03/08/20 at 18:54; Status DC Naloxone HCl (Narcan) 0.4 mg PRN Q2MIN PRN IV SEE INSTRUCTIONS; Start 03/05/20 at 16:15 Sodium Chloride 1,000 ml @ 25 mls/hr Q24H IV ; Start 03/05/20 at 16:09; Stop 03/06/20 at 14:24; Status DC Morphine Sulfate 30 ml @ 0 mls/hr CONT PRN PRN IV PER PROTOCOL; Start 03/05/20 at 16:15; Stop 03/06/20 at 09:48; Status DC Ondansetron HCl (Zofran) 4 mg PRN Q6HRS PRN IVP NAUESA, 1ST CHOICE; Start 03/05 at 16:15 Piperacillin Sod/ Tazobactam Sod 3.375 gm/Sodium Chloride 50 ml @ 100 mls/hr Q6HRS IV Last administered on 03/11/20at 12:01; Start 03/05/20 at 17:00 Ringer's Solution 1,000 ml @ 999 mls/hr 1X ONCE IV Last administered on 03/05/20at 20:59; Start 03/05/20 at 20:00; Stop 03/05/20 at 21:00; Status DC Vasopressin 20 unit/Dextrose 101 ml @ 12 mls/hr CONT PRN IV SEE I/O RECORD Last administered on 03/11/20at 06:25; Start 03/05/20 at 20:00 Ringer's Solution 1,000 ml @ 999 mls/hr 1X ONCE IV Last administered on 03/06/20at 01:07; Start 03/06/20 at 01:00; Stop 03/06/20 at 02:00; Status DC Ringer's Solution 1,000 ml @ 999 mls/hr 1X ONCE IV Last administered on 03/06/20at 05:18; Start 03/06/20 at 05:00; Stop 03/06/20 at 06:00; Status DC Ringer's Solution 1,000 ml @ 999 mls/hr 1X ONCE IV Last administered on 03/06/20at 09:54; Start 03/06/20 at 09:45; Stop 03/06/20 at 10:45; Status DC Ringer's Solution 1,000 ml @ 999 mls/hr 1X ONCE IV Last administered on 03/06/20at 13:40; Start 03/06/20 at 13:45; Stop 03/06/20 at 14:45; Status DC Ringer's Solution 1,000 ml @ 999 mls/hr 1X ONCE IV Last administered on 03/06/20at 18:43; Start 03/06/20 at 18:15; Stop 03/06/20 at 19:15; Status DC Sodium Chloride 200 ml @ 50 mls/hr 1X ONCE IV Last administered on 03/07/20at 13:49; Start 03/07/20 at 13:30; Stop 03/07/20 at 17:29; Status DC Potassium Phosphate 13.6 mmol/Sodium Chloride 254.5333 ml @ 62.5 mls/hr Q4H IV Last administered on 03/08/20at 16:52; Start 03/08/20 at 08:30; Stop 03/08/20 at 20:29; Status DC Magnesium Sulfate 50 ml @ 25 mls/hr 1X ONCE IV Last administered on 03/08/20at 08:00; Start 03/08/20 at 08:00; Stop 03/08/20 at 09:59; Status DC Sodium Chloride 300 ml @ 50 mls/hr 1X ONCE IV Last administered on 03/08/20at 08:00; Start 03/08/20 at 08:00; Stop 03/08/20 at 13:59; Status DC Info (Tpn Per Pharmacy) 1 each PRN DAILY PRN MC SEE COMMENTS Last administered on 03/11/20at 08:52; Start 03/08/20 at 11:00 Sodium Chloride 100 meq/Potassium Chloride 50 meq/ Potassium Phosphate 18 mmol/ Magnesium Sulfate 15 meq/Calcium Gluconate 10 meq/ Multivitamins 10 ml/Chromium/ Copper/Manganese/ Seleni/Zn 1 ml/ Total Parenteral Nutrition/Amino Acids/D extrose/ Fat Emulsion Intravenous 1,512 ml @ 63 mls/hr TPN CONT IV ; Start 03/08/20 at 22:00; Stop 03/08/20 at 11:31; Status DC Sodium Chloride 100 meq/Potassium Chloride 50 meq/ Potassium Phosphate 18 mmol/ Magnesium Sulfate 15 meq/Calcium Gluconate 10 meq/ Multivitamins 10 ml/Chromium/ Copper/Manganese/ Seleni/Zn 1 ml/ Total Parenteral Nutrition/Amino Acids/Dextrose/ Fat Emulsion Intravenous 1,920 ml @ 80 mls/hr TPN CONT IV Last administered on 03/08/20at 23:04; Start 03/08/20 at 22:00; Stop 03/09/20 at 2 1:59; Status DC Potassium Chloride/Water 100 ml @ 100 mls/hr 1X ONCE IV Last administered on 03/08/20at 15:51; Start 03/08/20 at 16:00; Stop 03/08/20 at 16:59; Status DC Sodium Chloride 100 meq/Potassium Chloride 50 meq/ Potassium Phosphate 18 mmol/ Magnesium Sulfate 15 meq/Calcium Gluconate 10 meq/ Multivitamins 10 ml/Chromium/ Copper/Manganese/ Seleni/Zn 1 ml/ Total Parenteral Nutrition/Amino Acids/Dextrose/ Fat Emulsion Intravenous 1,920 ml @ 80 mls/hr TPN CONT IV Last administered on 03/09/20at 22:00; Start 03/09/20 at 22:00; Stop 03/10/20 at 21:59; Status DC Sodium Phosphate 15 mmol/Sodium Chloride 255 ml @ 63.75 mls/ hr 1X ONCE IV Last administered on 03/10/20at 08:45; Start 03/10/20 at 09:00; Stop 03/10/20 at 12:59; Status DC Sodium Chloride 100 meq/Sodium Phosphate 15 mmol/ Potassium Chloride 50 meq/ Potassium Phosphate 18 mmol/ Magnesium Sulfate 15 meq/Calcium Gluconate 10 meq/ Multivitamins 10 ml/Chromium/ Copper/Manganese/ Seleni/Zn 1 ml/ Total Parenteral Nutrition/Amino Acids/Dextrose/ Fat Emulsion Intravenous 1,920 ml @ 80 mls/hr TPN CONT IV Last administered on 03/10/20at 21:41; Start 03/10/20 at 22:00; Stop 03/11/20 at 21:59 Sodium Phosphate 15 mmol/Sodium Chloride 255 ml @ 63.75 mls/ hr 1X ONCE IV Last administered on 03/11/20at 12:00; Start 03/11/20 at 10:00; Stop 03/11/20 at 13:59; Status DC Sodium Chloride 100 meq/Sodium Phosphate 15 mmol/ Potassium Chloride 50 meq/ Potassium Phosphate 18 mmol/ Magnesium Sulfate 15 meq/Calcium Gluconate 10 meq/ Multivitamins 10 ml/Chromium/ Copper/Manganese/ Seleni/Zn 1 ml/ Total Parenteral Nutrition/Amino Acids/Dextrose/ Fat Emulsion Intravenous 1,920 ml @ 80 mls/hr TPN CONT IV ; Start 03/11/20 at 22:00; Stop 03/12/20 at 21:59 Dexmedetomidine HCl 400 mcg/ Sodium Chloride 100 ml @ 0 mls/hr CONT PRN IV SEE COMMENTS Last administered on 03/11/20at 10:15; Start 03/11/20 at 10:00 Sodium Chloride 500 ml @ 500 mls/hr 1X PRN PRN IV SEE COMMENTS; Start 03/11/20 at 10:00 Atropine Sulfate (ATROPINE 0.5mg SYRINGE) 0.5 mg PRN Q5MIN PRN IV SEE COMMENTS; Start 03/11/20 at 10:00 Calcium Gluconate (Calcium Gluconate) 1,000 mg 1X ONCE IVP Last administered on 03/11/20at 12:35; Start 03/11/20 at 12:30; Stop 03/11/20 at 12:31; Status DC Active Scripts Active Reported Flomax (Tamsulosin Hcl) 0.4 Mg Cap.er.24h 1 Cap PO QHS Vitals/I & O Vital Sign - Last 24 Hours 03/10/20 03/10/20 03/10/20 03/10/20 16:00 16:00 17:00 17:01 Temp 98.6 98.6 Pulse 109 113 Resp 20 15 B/P (MAP) 114/72 (86) 98/54 (69) Pulse Ox 100 100 100 O2 Delivery Ventilator Mechanical Ventilator Ventilator Ventilator 03/10/20 03/10/20 03/10/20 03/10/20 18:00 18:40 19:00 19:57 Pulse 86 77 Resp 14 14 B/P (MAP) 94/61 (72) 87/62 (70) Pulse Ox 100 99 100 O2 Delivery Ventilator Ventilator Ventilator Mechanical Ventilator 03/10/20 03/10/20 03/10/20 03/10/20 20:00 21:00 22:00 23:00 Temp 97.4 97.4 Pulse 76 74 74 90 Resp 14 14 14 14 B/P (MAP) 98/63 (75) 81/56 (64) 101/52 (68) 132/67 (88) Pulse Ox 100 100 100 100 O2 Delivery Ventilator Ventilator Ventilator Ventilator 7/4/20 7/5/20 7/5/20 7/5/20 23:56 00:00 00:00 01:00 Temp 97.0 97.0 Pulse 86 73 Resp 14 14 B/P (MAP) 123/72 (89) 85/49 (61) Pulse Ox 100 100 99 O2 Delivery Ventilator Mechanical Ventilator Ventilator Ventilator 03/11/20 03/11/20 03/11/20 03/11/20 02:00 03:00 04:00 04:05 Temp 97.2 97.2 Pulse 76 68 64 Resp 14 14 14 B/P (MAP) 107/71 (83) 91/55 (67) 91/52 (65) Pulse Ox 99 100 100 O2 Delivery Ventilator Ventilator Ventilator Mechanical Ventilator 03/11/20 03/11/20 03/11/20 03/11/20 04:15 05:00 06:00 07:00 Pulse 64 90 69 Resp 14 14 18 B/P (MAP) 97/57 (70) 86/57 (67) 105/64 (78) Pulse Ox 100 100 100 100 O2 Delivery Ventilator Ventilator Ventilator Ventilator 03/11/20 03/11/20 03/11/20 03/11/20 07:49 07:50 07:52 08:00 Pulse 57 Resp 12 12 B/P (MAP) 84/52 (63) Pulse Ox 100 100 100 O2 Delivery Ventilator Ventilator Mechanical Ventilator Ventilator 03/11/20 03/11/20 03/11/20 03/11/20 08:37 09:00 09:06 10:00 Temp 98.4 98.4 Pulse 59 78 Resp 12 14 12 B/P (MAP) 87/52 (64) 151/84 (106) Pulse Ox 100 100 100 100 O2 Delivery Ventilator Ventilator Ventilator Ventilator 03/11/20 03/11/20 03/11/20 03/11/20 10:35 10:50 11:00 11:07 Temp 98.4 98.4 98.4 98.4 Pulse 76 93 105 Resp 14 16 12 B/P (MAP) 101/63 125/76 125/76 (92) Pulse Ox 100 100 O2 Delivery Ventilator Ventilator 03/11/20 03/11/20 03/11/20 03/11/20 11:41 11:50 12:00 12:00 Temp 97.9 97.9 97.9 97.9 97.9 97.9 Pulse 87 86 80 Resp 16 12 16 B/P (MAP) 135/79 104/65 (78) 104/65 Pulse Ox 100 O2 Delivery Mechanical Ventilator Ventilator 03/11/20 03/11/20 03/11/20 03/11/20 13:00 14:00 14:43 15:00 Pulse 76 79 86 Resp 16 16 18 B/P (MAP) 138/77 (97) 149/82 (104) 142/89 (106) Pulse Ox 100 99 99 98 O2 Delivery Ventilator Ventilator Ventilator Ventilator 03/11/20 15:33 O2 Delivery Mechanical Ventilator Intake and Output 03/10/20 03/10/20 03/11/20 15:00 23:00 07:00 Intake Total 382 ml 1385.43 ml 1389 ml Output Total 650 ml 885 ml 720 ml Balance -268 ml 500.43 ml 669 ml Nutrition Consultation Dietary Evaluation: Recommendations by RD: Dietary education by RD, Increase Calorie Intake, PPN/TPN Comments: Continue w/TPN as ordered: 95 g AA, 220 g dextrose, 20 g lipids Expected Outcomes/Goals: New goal 03/07: TPN for nutrition needs if continued aggressive care desired - met, new goal established New goal 03/08: TPN to meet >65% est needs while intubated Malnutrition Findings: Food and Nutrition Intake (Mod: <75% est energy req 7days Weight Status: Appropriate Justicifation of Admission Dx: Justifications for Admission: Justification of Admission Dx: Yes MARLYS ENCARNACION MD Mar 11, 2020 15:44
[2020-03-11] MEDS: NOREPINEPHRINE VIAL 8 MG in IV DEXTROSE 5% 250 ML IV PRN (18:15)
--- NOTE | 2020-03-11 18:30 | NUR ---
Sedation off at 0900. Vasopressin off at this time also map >65. Patient was alert and following commands at 1000, but slightly anxious. Precedex started. Transfused 1 uprbc; at 1300 placed patient on pressure support 10/5 40% O2. Patient placed back on AC mode at 1800. At this time patient was bradycardic and hypotensives SBP in 60's-70's. Precedex stopped. Restarted Versed at 3mg/hr. Gave 250ml NS bolus with no response so Levophed restarted at this time. VS now wnl with the addition of Levo. Will continue to monitor.
[2020-03-11] MEDS: TAMSULOSIN 0.4 MG CAP.ER.24H. PO SCH (19:37)
[2020-03-11] MEDS ORDERED: AMINO ACID IV SCH (22:00)
[2020-03-11] MEDS ORDERED: TOTAL PARENTERAL NUTRITION IV SCH (22:00)
[2020-03-11] MEDS ORDERED: [UNRECOGNIZED DRUG - OTHER] IV SCH (22:00)
[2020-03-11] MEDS ORDERED: DEXTROSE 70% IV SCH (22:00)
[2020-03-12] VITALS (27 sets, daily range): BP systolic 93–154; BP diastolic 63–100
[2020-03-12 04:54] LABS: BASO % 0 % (0-3); EOS % 0 % (0-3); HEMATOCRIT 30.9 % (39.0-53.0); HEMOGLOBIN 9.9 g/dL (13.0-17.5); LYMPH # 0.3 x10^3/uL (1.0-4.8); LYMPH % 4 % (24-48); MEAN CORPUSCULAR HEMOGLOBIN 26 pg (25-35); MEAN CORPUSCULAR HGB CONC 32 g/dL (31-37); MEAN CORPUSCULAR VOLUME 80 fL (79-100); MONO # 0.8 x10^3/uL (0.0-1.1); MONO % 9 % (0-9); NEUT # 7.7 x10^3/uL (1.8-7.7); NEUT % 87 % (31-73); PLATELET COUNT 254 x10^3/uL (140-400); RED BLOOD COUNT 3.87 x10^6/uL (4.30-5.70); RED CELL DISTRIBUTION WIDTH 27.1 % (11.5-14.5)
[2020-03-12 05:16] LABS: ALBUMIN 0.8 g/dL (3.4-5.0); ALBUMIN/GLOBULIN RATIO 0.2 (1.0-1.7); CALCIUM 6.9 mg/dL (8.5-10.1); CREATININE 0.6 mg/dL (0.7-1.3); GFR 132.8; MAGNESIUM 2.2 mg/dL (1.8-2.4); PHOSPHORUS 3.4 mg/dL (2.6-4.7); TOTAL BILIRUBIN 0.2 mg/dL (0.2-1.0); TOTAL PROTEIN 4.2 g/dL (6.4-8.2)
[2020-03-12] MEDS: PIPERACILLIN/TAZOBACTAM 3.375 GM in IV NORMAL SALINE 50ML 50 ML IV SCH ×4 (05:17→23:51)
[2020-03-12 08:35] LABS: BASE EXCESS ABG 2 mmol/L (-3-3); HCO3 ABG 26 mmol/L (21-28); PCO2 ABG 39 mmHg (35-46); PO2 ABG 71 mmHg (65-108); SAT O2 ABG 94 % (92-99)
--- NOTE | 2020-03-12 08:59 | PDOC ---
PULMONARY PROGRESS NOTES Subjective Continues in A/C mode on Vent -- Sedated. Vitals Vital Signs Date Time Temp Pulse Resp B/P (MAP) Pulse Ox O2 Delivery O2 Flow Rate FiO2 03/12/20 07:52 92 Ventilator 03/12/20 06:00 115 19 138/95 (109) 03/12/20 04:00 97.5 97.5 Comments intubated/sedated Lungs: Clear Cardiovascular: S1, S2 Abdomen: Other (Dressing in place, jace drain ) Extremities: No Edema Skin: Warm Labs Laboratory Tests Test 03/11/20 06:00 03/11/20 07:15 03/11/20 08:00 03/12/20 04:30 White Blood Count 5.7 x10^3/uL (4.0-11.0) 9.0 x10^3/uL (4.0-11.0) Red Blood Count 2.77 x10^6/uL (4.30-5.70) 3.87 x10^6/uL (4.30-5.70) Hemoglobin 7.0 g/dL (13.0-17.5) 9.9 g/dL (13.0-17.5) Hematocrit 21.8 % (39.0-53.0) 30.9 % (39.0-53.0) Mean Corpuscular Volume 79 fL (79-100) 80 fL (79-100) Mean Corpuscular Hemoglobin 25 pg (25-35) 26 pg (25-35) Mean Corpuscular Hemoglobin Concent 32 g/dL (31-37) 32 g/dL (31-37) Red Cell Distribution Width 28.7 % (11.5-14.5) 27.1 % (11.5-14.5) Platelet Count 169 x10^3/uL (140-400) 254 x10^3/uL (140-400) Sodium Level 130 mmol/L (136-145) 144 mmol/L (136-145) Potassium Level 3.8 mmol/L (3.5-5.1) 4.0 mmol/L (3.5-5.1) Chloride Level 100 mmol/L (98-107) 111 mmol/L (98-107) Carbon Dioxide Level 27 mmol/L (21-32) 29 mmol/L (21-32) Anion Gap 3 (6-14) 4 (6-14) Blood Urea Nitrogen 14 mg/dL (8-26) 11 mg/dL (8-26) Creatinine 0.5 mg/dL (0.7-1.3) 0.6 mg/dL (0.7-1.3) Estimated GFR (Cockcroft-Gault) 163.9 132.8 Glucose Level 107 mg/dL (70-99) 101 mg/dL (70-99) Calcium Level 6.0 mg/dL (8.5-10.1) 6.9 mg/dL (8.5-10.1) Phosphorus Level 2.5 mg/dL (2.6-4.7) 3.4 mg/dL (2.6-4.7) Magnesium Level 1.8 mg/dL (1.8-2.4) 2.2 mg/dL (1.8-2.4) Ionized Calcium 1.07 mmol/L (1.13-1.32) O2 Saturation 98 % (92-99) Arterial Blood pH 7.35 (7.35-7.45) Arterial Blood pCO2 at Patient Temp 43 mmHg (35-46) Arterial Blood pO2 at Patient Temp 127 mmHg (65-108) Arterial Blood HCO3 23 mmol/L (21-28) Arterial Blood Base Excess -3 mmol/L (-3-3) FiO2 40% Neutrophils (%) (Auto) 87 % (31-73) Lymphocytes (%) (Auto) 4 % (24-48) Monocytes (%) (Auto) 9 % (0-9) Eosinophils (%) (Auto) 0 % (0-3) Basophils (%) (Auto) 0 % (0-3) Neutrophils # (Auto) 7.7 x10^3/uL (1.8-7.7) Lymphocytes # (Auto) 0.3 x10^3/uL (1.0-4.8) Monocytes # (Auto) 0.8 x10^3/uL (0.0-1.1) Eosinophils # (Auto) 0.0 x10^3/uL (0.0-0.7) Basophils # (Auto) 0.0 x10^3/uL (0.0-0.2) BUN/Creatinine Ratio 18 (6-20) Total Bilirubin 0.2 mg/dL (0.2-1.0) Aspartate Amino Transf (AST/SGOT) 16 U/L (15-37) Alanine Aminotransferase (ALT/SGPT) 15 U/L (16-63) Alkaline Phosphatase 779 U/L (46-116) Total Protein 4.2 g/dL (6.4-8.2) Albumin 0.8 g/dL (3.4-5.0) Albumin/Globulin Ratio 0.2 (1.0-1.7) Laboratory Tests Test 03/12/20 04:30 White Blood Count 9.0 x10^3/uL (4.0-11.0) Red Blood Count 3.87 x10^6/uL (4.30-5.70) Hemoglobin 9.9 g/dL (13.0-17.5) Hematocrit 30.9 % (39.0-53.0) Mean Corpuscular Volume 80 fL (79-100) Mean Corpuscular Hemoglobin 26 pg (25-35) Mean Corpuscular Hemoglobin Concent 32 g/dL (31-37) Red Cell Distribution Width 27.1 % (11.5-14.5) Platelet Count 254 x10^3/uL (140-400) Neutrophils (%) (Auto) 87 % (31-73) Lymphocytes (%) (Auto) 4 % (24-48) Monocytes (%) (Auto) 9 % (0-9) Eosinophils (%) (Auto) 0 % (0-3) Basophils (%) (Auto) 0 % (0-3) Neutrophils # (Auto) 7.7 x10^3/uL (1.8-7.7) Lymphocytes # (Auto) 0.3 x10^3/uL (1.0-4.8) Monocytes # (Auto) 0.8 x10^3/uL (0.0-1.1) Eosinophils # (Auto) 0.0 x10^3/uL (0.0-0.7) Basophils # (Auto) 0.0 x10^3/uL (0.0-0.2) Sodium Level 144 mmol/L (136-145) Potassium Level 4.0 mmol/L (3.5-5.1) Chloride Level 111 mmol/L (98-107) Carbon Dioxide Level 29 mmol/L (21-32) Anion Gap 4 (6-14) Blood Urea Nitrogen 11 mg/dL (8-26) Creatinine 0.6 mg/dL (0.7-1.3) Estimated GFR (Cockcroft-Gault) 132.8 BUN/Creatinine Ratio 18 (6-20) Glucose Level 101 mg/dL (70-99) Calcium Level 6.9 mg/dL (8.5-10.1) Phosphorus Level 3.4 mg/dL (2.6-4.7) Magnesium Level 2.2 mg/dL (1.8-2.4) Total Bilirubin 0.2 mg/dL (0.2-1.0) Aspartate Amino Transf (AST/SGOT) 16 U/L (15-37) Alanine Aminotransferase (ALT/SGPT) 15 U/L (16-63) Alkaline Phosphatase 779 U/L (46-116) Total Protein 4.2 g/dL (6.4-8.2) Albumin 0.8 g/dL (3.4-5.0) Albumin/Globulin Ratio 0.2 (1.0-1.7) Medications Active Scripts Medications Dose Route/Sig Max Daily Dose Days Date Category Flomax (Tamsulosin Hcl) 0.4 Mg Cap.er.24h 1 Cap PO QHS 03/02/20 Reported Comments CXR 03/11/20 IMPRESSION: 1. Stable left basilar opacities and small left pleural effusion. 2. Stable life support devices. Impression . IMPRESSION: 1. Acute hypoxemic respiratory failure, expected status post surgical intervention for colonic mass. 2. Obstructing colonic cancer. 3. History of prostate cancer. 4. Severe protein malnutrition present upon admission. 5. Tobacco dependent. 6. Chronic obstructive pulmonary disease. 7. SARS-CoV-2 negative. 8. Cholelithiasis. 9. Hyponatremia. 10. Protein malnutrition, present upon admission. 11. Benign prostatic hypertrophy. 12. S/p open right colon resection, partial resection of duodenum, placement of duodenostomy tube, cholecystectomy, ghost ileostomy 13. Acute blood loss anemia 14. Respiratory alkalosis 15. Hypocalcemia-- correct calcium WNL Plan . Did well on pressure support yesterday Did not do well on pressure support today Continue A/C mode, follow CXR and ABG, make changes as needed Monitor H&H Follow nephrology recs Cont. vasopressors to Keep MAP above 65--now off levo Cont. TPN for nutrition Cont. ABX DVT GI prophylaxis D/W RN and RT Total cumulative critical care time of 30 minutes reviewing data, labs, chest x-ray and formulating a plan. DOTTIE WILBURN MD Mar 12, 2020 08:59
--- NOTE | 2020-03-12 09:07 | PDOC ---
SURGICAL PROGRESS NOTE Subjective awake Vent some sat decrease this AM no stool yet Vital Signs Vital Signs Date Time Temp Pulse Resp B/P (MAP) Pulse Ox O2 Delivery O2 Flow Rate FiO2 03/12/20 07:52 92 Ventilator 03/12/20 06:00 115 19 138/95 (109) 03/12/20 04:00 97.5 97.5 I&O Intake and Output 03/12/20 07:00 Intake Total 3614.85 ml Output Total 6880 ml Balance -3265.15 ml IV Total 2640.85 ml Blood Product 312 ml Blood Product IV Normal Saline Flush 662 ml Output Urine Total 5630 ml Gastric Drainage Total 150 ml Drainage Total 1100 ml PATIENT HAS A DOZIER: Yes General: Cooperative, No acute distress HEENT: Other (mech vent) Abdomen: Soft, Other (some drainage to nicole, lower portion of incision, drains in place) Labs Laboratory Tests Test 03/11/20 06:00 03/11/20 07:15 03/11/20 08:00 03/12/20 04:30 White Blood Count 5.7 x10^3/uL (4.0-11.0) 9.0 x10^3/uL (4.0-11.0) Red Blood Count 2.77 x10^6/uL (4.30-5.70) 3.87 x10^6/uL (4.30-5.70) Hemoglobin 7.0 g/dL (13.0-17.5) 9.9 g/dL (13.0-17.5) Hematocrit 21.8 % (39.0-53.0) 30.9 % (39.0-53.0) Mean Corpuscular Volume 79 fL (79-100) 80 fL (79-100) Mean Corpuscular Hemoglobin 25 pg (25-35) 26 pg (25-35) Mean Corpuscular Hemoglobin Concent 32 g/dL (31-37) 32 g/dL (31-37) Red Cell Distribution Width 28.7 % (11.5-14.5) 27.1 % (11.5-14.5) Platelet Count 169 x10^3/uL (140-400) 254 x10^3/uL (140-400) Sodium Level 130 mmol/L (136-145) 144 mmol/L (136-145) Potassium Level 3.8 mmol/L (3.5-5.1) 4.0 mmol/L (3.5-5.1) Chloride Level 100 mmol/L (98-107) 111 mmol/L (98-107) Carbon Dioxide Level 27 mmol/L (21-32) 29 mmol/L (21-32) Anion Gap 3 (6-14) 4 (6-14) Blood Urea Nitrogen 14 mg/dL (8-26) 11 mg/dL (8-26) Creatinine 0.5 mg/dL (0.7-1.3) 0.6 mg/dL (0.7-1.3) Estimated GFR (Cockcroft-Gault) 163.9 132.8 Glucose Level 107 mg/dL (70-99) 101 mg/dL (70-99) Calcium Level 6.0 mg/dL (8.5-10.1) 6.9 mg/dL (8.5-10.1) Phosphorus Level 2.5 mg/dL (2.6-4.7) 3.4 mg/dL (2.6-4.7) Magnesium Level 1.8 mg/dL (1.8-2.4) 2.2 mg/dL (1.8-2.4) Ionized Calcium 1.07 mmol/L (1.13-1.32) O2 Saturation 98 % (92-99) Arterial Blood pH 7.35 (7.35-7.45) Arterial Blood pCO2 at Patient Temp 43 mmHg (35-46) Arterial Blood pO2 at Patient Temp 127 mmHg (65-108) Arterial Blood HCO3 23 mmol/L (21-28) Arterial Blood Base Excess -3 mmol/L (-3-3) FiO2 40% Neutrophils (%) (Auto) 87 % (31-73) Lymphocytes (%) (Auto) 4 % (24-48) Monocytes (%) (Auto) 9 % (0-9) Eosinophils (%) (Auto) 0 % (0-3) Basophils (%) (Auto) 0 % (0-3) Neutrophils # (Auto) 7.7 x10^3/uL (1.8-7.7) Lymphocytes # (Auto) 0.3 x10^3/uL (1.0-4.8) Monocytes # (Auto) 0.8 x10^3/uL (0.0-1.1) Eosinophils # (Auto) 0.0 x10^3/uL (0.0-0.7) Basophils # (Auto) 0.0 x10^3/uL (0.0-0.2) BUN/Creatinine Ratio 18 (6-20) Total Bilirubin 0.2 mg/dL (0.2-1.0) Aspartate Amino Transf (AST/SGOT) 16 U/L (15-37) Alanine Aminotransferase (ALT/SGPT) 15 U/L (16-63) Alkaline Phosphatase 779 U/L (46-116) Total Protein 4.2 g/dL (6.4-8.2) Albumin 0.8 g/dL (3.4-5.0) Albumin/Globulin Ratio 0.2 (1.0-1.7) Laboratory Tests Test 03/12/20 04:30 White Blood Count 9.0 x10^3/uL (4.0-11.0) Red Blood Count 3.87 x10^6/uL (4.30-5.70) Hemoglobin 9.9 g/dL (13.0-17.5) Hematocrit 30.9 % (39.0-53.0) Mean Corpuscular Volume 80 fL (79-100) Mean Corpuscular Hemoglobin 26 pg (25-35) Mean Corpuscular Hemoglobin Concent 32 g/dL (31-37) Red Cell Distribution Width 27.1 % (11.5-14.5) Platelet Count 254 x10^3/uL (140-400) Neutrophils (%) (Auto) 87 % (31-73) Lymphocytes (%) (Auto) 4 % (24-48) Monocytes (%) (Auto) 9 % (0-9) Eosinophils (%) (Auto) 0 % (0-3) Basophils (%) (Auto) 0 % (0-3) Neutrophils # (Auto) 7.7 x10^3/uL (1.8-7.7) Lymphocytes # (Auto) 0.3 x10^3/uL (1.0-4.8) Monocytes # (Auto) 0.8 x10^3/uL (0.0-1.1) Eosinophils # (Auto) 0.0 x10^3/uL (0.0-0.7) Basophils # (Auto) 0.0 x10^3/uL (0.0-0.2) Sodium Level 144 mmol/L (136-145) Potassium Level 4.0 mmol/L (3.5-5.1) Chloride Level 111 mmol/L (98-107) Carbon Dioxide Level 29 mmol/L (21-32) Anion Gap 4 (6-14) Blood Urea Nitrogen 11 mg/dL (8-26) Creatinine 0.6 mg/dL (0.7-1.3) Estimated GFR (Cockcroft-Gault) 132.8 BUN/Creatinine Ratio 18 (6-20) Glucose Level 101 mg/dL (70-99) Calcium Level 6.9 mg/dL (8.5-10.1) Phosphorus Level 3.4 mg/dL (2.6-4.7) Magnesium Level 2.2 mg/dL (1.8-2.4) Total Bilirubin 0.2 mg/dL (0.2-1.0) Aspartate Amino Transf (AST/SGOT) 16 U/L (15-37) Alanine Aminotransferase (ALT/SGPT) 15 U/L (16-63) Alkaline Phosphatase 779 U/L (46-116) Total Protein 4.2 g/dL (6.4-8.2) Albumin 0.8 g/dL (3.4-5.0) Albumin/Globulin Ratio 0.2 (1.0-1.7) Problem List Problems Medical Problems: (1) Anemia Status: Acute (2) Colonic mass Status: Acute (3) Fatigue Status: Acute (4) Hypocalcemia Status: Acute (5) Nausea & vomiting Status: Acute (6) SBO (small bowel obstruction) Status: Acute Assessment/Plan await bowel function hgb 9.9 today cxr pending Justicifation of Admission Dx: Justifications for Admission: Justification of Admission Dx: Yes ISAAC LUEVANO [employer] W[employer]ER Mar 12, 2020 09:07
--- NOTE | 2020-03-12 10:45 | RAD ---
CHEST AP ONLY 03/12/2020 8:56 AM INDICATION: Poor oxygen saturation, on ventilator COMPARISON: 03/11/2020 TECHNIQUE: Portable frontal view of the chest is provided. FINDINGS: The cardiomediastinal silhouette is similar in appearance. Endotracheal tube terminates 5.2 cm above the level of the ceferino. Nasogastric tube is in similar position. Left upper extremity PICC is in similar position. Patchy airspace disease at the right lung base appears increased since the prior examination. Similar small left pleural effusion with adjacent compressive atelectasis versus infiltrate. No significant pulmonary vascular congestion or pneumothorax. No suspicious osseous abnormality. IMPRESSION: 1. Increased patchy airspace opacity at the right lung base suggestive of worsening pulmonary infiltrate. 2. Similar position and appearance of support lines and tubes. Electronically signed by: Donna Antonio MD (03/12/2020 10:42 AM) [facility]
--- NOTE | 2020-03-12 11:12 | NUR ---
SS following up with discharge planning. SS reviewed pt chart and discussed with pt RN. Pt remains on the vent at this time. Pt on IV Zosyn. Pt accepted at [facility], ; fax [phone]. SS phoned and faxed clinical updates to [facility]. Pt's brother Markos, , contacted SS reporting that he needs pt to sign documents and needs notary once pt is extubated. Pt's RN reported that pt's blood gases were not improved today and pt may not be extubated today. SS will continue to follow for discharge planning.
[2020-03-12 11:16] LABS: FIO2 ABG 40%+5
[2020-03-12] MEDS: TPN PER PHARMACY MC PRN (11:42)
[2020-03-12] MEDS: ENOXAPARIN 40 MG/0.4 ML SYRINGE. SQ SCH (12:22)
[2020-03-12] MEDS: PANTOPRAZOLE IV PUSH 40 MG VIAL. IVP SCH (12:22)
--- NOTE | 2020-03-12 12:42 | PDOC ---
SUBJECTIVE ROS Remains Intubated ,On MV OBJECTIVE Vital Signs Vital Signs Date Time Temp Pulse Resp B/P (MAP) Pulse Ox O2 Delivery O2 Flow Rate FiO2 03/12/20 11:36 96 03/12/20 11:10 Ventilator 03/12/20 06:00 115 19 138/95 (109) 03/12/20 04:00 97.5 97.5 I & 0 Intake and Output 03/12/20 07:00 Intake Total 3614.85 ml Output Total 6880 ml Balance -3265.15 ml IV Total 2640.85 ml Blood Product 312 ml Blood Product IV Normal Saline Flush 662 ml Output Urine Total 5630 ml Gastric Drainage Total 150 ml Drainage Total 1100 ml PHYSICAL EXAM Physical Exam General Appearance: no apparent distress HEEN Intubated Skin: warm Respiratory: decreased at bases Heart: S1S2 Abdomen: s/p Surgery Genitourinary: Booth + Neurology: Intubated Ext- 3+ LE edema (sever Hypoalbuminemia) DIAGNOSIS/ASSESSMENT Assessment & Plan Hyponatremia - Sodium normal UOP improved,polyuric , Monitor GEORGES- Cr Normal- may not be accurate 2/2 severe malnutrition but stable Supportive care , avoid nephrotoxins HypoCalcemia- Albumin 0.8, iCa low,- replaced, Improved Replace as indicated HyPhos- Replace as indicated 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 S/P Open right colon resection, partial resection of duodenum, placement of duodenostomy tube, cholecystectomy with cholangiogram, ghost ileostomy Anemia- s/p PRBC Severe protein calorie malnutrition- On TPN HX of prostate cancer BPH COMMENT/RELEVANT DATA Meds Current Medications Medications (Trade) Dose Ordered Sig/Faisal Start Time Stop Time Status Last Admin Dose Admin Acetaminophen (Tylenol Supp) 650 mg PRN Q4HRS PRN 03/03/20 09:45 Albumin Human 500 ml @ As Directed STK-MED ONCE 03/05/20 13:13 03/05/20 13:14 DC Amino Acids/ Glycerin/ Electrolytes 1,000 ml @ 80 mls/hr [id number] 03/03/20 15:00 03/07/20 13:22 DC 03/07/20 02:41 80 MLS/HR Atropine Sulfate (ATROPINE 0.5mg SYRINGE) 0.5 mg PRN Q5MIN PRN 03/11/20 10:00 Bisacodyl (Dulcolax Supp) 10 mg 1X ONCE 03/04/20 10:00 03/04/20 10:05 DC 03/04/20 12:18 10 MG Bisacodyl (Dulcolax Tab) 10 mg PRN DAILY PRN 03/03/20 09:45 03/06/20 10:25 DC 03/03/20 13:47 10 MG Bupivacaine HCl/ Epinephrine Bitart (Sensorcain-Epi 0.5%-1:[id number] Mpf) 30 ml STK-MED ONCE 03/05/20 10:42 03/05/20 10:42 DC Calcium Gluconate (Calcium Gluconate) 1,000 mg 1X ONCE 03/11/20 12:30 03/11/20 12:31 DC 03/11/20 12:35 1,000 MG Cefoxitin Sodium (Mefoxin) 1 gm STK-MED ONCE 03/05/20 12:57 03/05/20 12:57 DC Dexamethasone Sodium Phosphate (Decadron) 4 mg STK-MED ONCE 03/05/20 10:23 03/05/20 10:23 DC Dexmedetomidine HCl 400 mcg/ Sodium Chloride 100 ml @ 0 mls/hr CONT PRN 03/11/20 10:00 03/11/20 10:15 3.8 MLS/HR Docusate Sodium (Colace) 100 mg DAILY 03/03/20 12:00 03/06/20 10:25 DC 03/04/20 09:21 100 MG Enoxaparin Sodium (Lovenox 40mg Syringe) 40 mg Q24H 03/06/20 08:00 03/12/20 12:22 40 MG Enoxaparin Sodium (Lovenox Per Pharmacy Prophylaxis Dosing) 1 each PRN DAILY PRN 03/02/20 20:30 Cancel Ephedrine Sulfate (ePHEDrine PF IN SALINE SYRINGE) 50 mg STK-MED ONCE 03/05/20 12:13 03/05/20 12:14 DC Fentanyl Citrate 30 ml @ 2.5 mls/hr CONT PRN PRN 03/05/20 15:15 03/12/20 11:06 2.5 MLS/HR Fentanyl Citrate (Fentanyl 2ml Vial) 100 mcg STK-MED ONCE 03/05/20 10:24 03/05/20 10:24 DC Furosemide (Lasix) 40 mg 1X ONCE 03/03/20 15:00 03/03/20 15:01 DC 03/03/20 16:48 40 MG Hydromorphone HCl (Dilaudid) 0.5 mg PRN Q10MIN PRN 03/05/20 07:15 03/05/20 20:00 DC Info (CONTRAST GIVEN -- Rx MONITORING) 1 each PRN DAILY PRN 03/03/20 16:15 03/05/20 16:15 DC Info (Tpn Per Pharmacy) 1 each PRN DAILY PRN 03/08/20 11:00 03/12/20 11:42 1 EACH Iohexol (Omnipaque 300 Mg/ml) 50 ml STK-MED ONCE 03/05/20 10:41 03/05/20 10:41 DC 03/05/20 11:43 27 ML Lidocaine (Lidoderm) 1 patch DAILY 03/04/20 16:30 Cancel Lidocaine HCl (Lidocaine Pf 2% Vial) 5 ml STK-MED ONCE 03/05/20 10:23 03/05/20 10:23 DC Lidocaine HCl (Xylocaine-Mpf 1% 2ml Vial) 2 ml 1X PRN PRN 03/05/20 07:15 03/05/20 20:00 DC Magnesium Sulfate 50 ml @ 25 mls/hr 1X ONCE 03/08/20 08:00 03/08/20 09:59 DC 03/08/20 08:00 25 MLS/HR Metoprolol Tartrate (Lopressor Vial) 2.5 mg Q6HRS 03/12/20 12:00 Midazolam HCl 100 mg/Sodium Chloride 100 ml @ 1 mls/hr CONT PRN 03/05/20 15:15 03/11/20 23:06 5 MLS/HR Miscellaneous (Lidoderm Patch Removal) 1 ea QHS 03/04/20 21:00 Cancel Morphine Sulfate 30 ml @ 0 mls/hr CONT PRN PRN 03/05/20 16:15 03/06/20 09:48 DC Morphine Sulfate (Morphine Sulfate) 1 mg PRN Q10MIN PRN 03/05/20 07:15 03/05/20 20:00 DC Naloxone HCl (Narcan) 0.4 mg PRN Q2MIN PRN 03/05/20 16:15 Norepinephrine Bitartrate 8 mg/ Dextrose 258 ml @ 15.287 mls/ hr CONT PRN 03/05/20 15:30 03/11/20 18:15 15.287 MLS/HR Ondansetron HCl (Zofran) 4 mg PRN Q6HRS PRN 03/05/20 16:15 Pantoprazole Sodium (PROTONIX VIAL for IV PUSH) 40 mg DAILYAC 03/05/20 10:30 03/12/20 12:22 40 MG Phenylephrine HCl (Devin-Synephrine Inj) 10 mg STK-MED ONCE 03/05/20 14:35 03/05/20 14:36 DC Phenylephrine HCl (PHENYLEPHRINE in 0.9% NACL PF) 1 mg STK-MED ONCE 03/05/20 12:13 03/05/20 12:14 DC Piperacillin Sod/ Tazobactam Sod 3.375 gm/Sodium Chloride 50 ml @ 100 mls/hr Q6HRS 03/05/20 17:00 03/12/20 12:24 100 MLS/HR Polyethylene Glycol (miraLAX PACKET) 17 gm QHS 03/03/20 21:00 03/06/20 10:25 DC 03/04/20 21:03 17 GM Potassium Chloride/Water 100 ml @ 100 mls/hr 1X ONCE 03/08/20 16:00 03/08/20 16:59 DC 03/08/20 15:51 100 MLS/HR Potassium Phosphate 13.6 mmol/Sodium Chloride 254.5333 ml @ 62.5 mls/hr Q4H 03/08/20 08:30 03/08/20 20:29 DC 03/08/20 16:52 62.5 MLS/HR Prochlorperazine Edisylate (Compazine) 5 mg PACU PRN PRN 03/05/20 07:15 03/06/20 07:14 DC Propofol (Diprivan) 200 mg STK-MED ONCE 03/05/20 10:23 03/05/20 10:23 DC Psyllium Hydrophilic Mucilloid (Metamucil Fiber Packet) 1 pkt QHS 03/03/20 21:00 03/06/20 10:25 DC 03/04/20 21:03 1 PKT Ringer's Solution 1,000 ml @ 999 mls/hr 1X ONCE 03/06/20 18:15 03/06/20 19:15 DC 03/06/20 18:43 999 MLS/HR Rocuronium [place] (Zemuron) 50 mg STK-MED ONCE 03/05/20 12:27 03/05/20 12:27 DC Sevoflurane (Ultane) 90 ml STK-MED ONCE 03/05/20 14:30 03/05/20 14:30 DC Sodium Chloride (Normal Saline Flush) 3 ml QSHIFT PRN 03/05/20 16:15 Sodium Chloride 80 meq/Sodium Phosphate 15 mmol/ Potassium Chloride 50 meq/ Potassium Phosphate 15 mmol/ Magnesium Sulfate 15 meq/Calcium Gluconate 10 meq/ Multivitamins 10 ml/Chromium/ Copper/Manganese/ Seleni/Zn 1 ml/ Total Parenteral Nutrition/Amino Acids/Dextrose/ Fat Emulsion Intravenous 1,920 ml @ 80 mls/hr TPN CONT 03/12/20 22:00 03/13/20 21:59 Sodium Chloride 100 meq/Potassium Chloride 50 meq/ Potassium Phosphate 18 mmol/ Magnesium Sulfate 15 meq/Calcium Gluconate 10 meq/ Multivitamins 10 ml/Chromium/ Copper/Manganese/ Seleni/Zn 1 ml/ Total Parenteral Nutrition/Amino Acids/Dextrose/ Fat Emulsion Intravenous 1,920 ml @ 80 mls/hr TPN CONT 03/09/20 22:00 03/10/20 21:59 DC 03/09/20 22:00 80 MLS/HR Sodium Chloride 100 meq/Sodium Phosphate 15 mmol/ Potassium Chloride 50 meq/ Potassium Phosphate 18 mmol/ Magnesium Sulfate 15 meq/Calcium Gluconate 10 meq/ Multivitamins 10 ml/Chromium/ Copper/Manganese/ Seleni/Zn 1 ml/ Total Parenteral Nutrition/Amino Acids/Dextrose/ Fat Emulsion Intravenous 1,920 ml @ 80 mls/hr TPN CONT 03/11/20 22:00 03/12/20 21:59 03/11/20 21:52 80 MLS/HR Sodium Phosphate 15 mmol/Sodium Chloride 255 ml @ 63.75 mls/ hr 1X ONCE 03/11/20 10:00 03/11/20 13:59 DC 03/11/20 12:00 63.75 MLS/HR Succinylcholine Chloride (Anectine) 200 mg STK-MED ONCE 03/05/20 10:23 03/05/20 10:23 DC Tamsulosin HCl (Flomax) 0.4 mg HS 03/02/20 23:45 03/04/20 21:03 0.4 MG Vasopressin 20 unit/Dextrose 101 ml @ 12 mls/hr CONT PRN 03/05/20 20:00 03/11/20 06:25 12 MLS/HR Lab Laboratory Tests Test 03/12/20 04:30 03/12/20 08:00 White Blood Count 9.0 x10^3/uL (4.0-11.0) Red Blood Count 3.87 x10^6/uL (4.30-5.70) Hemoglobin 9.9 g/dL (13.0-17.5) Hematocrit 30.9 % (39.0-53.0) Mean Corpuscular Volume 80 fL (79-100) Mean Corpuscular Hemoglobin 26 pg (25-35) Mean Corpuscular Hemoglobin Concent 32 g/dL (31-37) Red Cell Distribution Width 27.1 % (11.5-14.5) Platelet Count 254 x10^3/uL (140-400) Neutrophils (%) (Auto) 87 % (31-73) Lymphocytes (%) (Auto) 4 % (24-48) Monocytes (%) (Auto) 9 % (0-9) Eosinophils (%) (Auto) 0 % (0-3) Basophils (%) (Auto) 0 % (0-3) Neutrophils # (Auto) 7.7 x10^3/uL (1.8-7.7) Lymphocytes # (Auto) 0.3 x10^3/uL (1.0-4.8) Monocytes # (Auto) 0.8 x10^3/uL (0.0-1.1) Eosinophils # (Auto) 0.0 x10^3/uL (0.0-0.7) Basophils # (Auto) 0.0 x10^3/uL (0.0-0.2) Sodium Level 144 mmol/L (136-145) Potassium Level 4.0 mmol/L (3.5-5.1) Chloride Level 111 mmol/L (98-107) Carbon Dioxide Level 29 mmol/L (21-32) Anion Gap 4 (6-14) Blood Urea Nitrogen 11 mg/dL (8-26) Creatinine 0.6 mg/dL (0.7-1.3) Estimated GFR (Cockcroft-Gault) 132.8 BUN/Creatinine Ratio 18 (6-20) Glucose Level 101 mg/dL (70-99) Calcium Level 6.9 mg/dL (8.5-10.1) Phosphorus Level 3.4 mg/dL (2.6-4.7) Magnesium Level 2.2 mg/dL (1.8-2.4) Total Bilirubin 0.2 mg/dL (0.2-1.0) Aspartate Amino Transf (AST/SGOT) 16 U/L (15-37) Alanine Aminotransferase (ALT/SGPT) 15 U/L (16-63) Alkaline Phosphatase 779 U/L (46-116) Total Protein 4.2 g/dL (6.4-8.2) Albumin 0.8 g/dL (3.4-5.0) Albumin/Globulin Ratio 0.2 (1.0-1.7) O2 Saturation 94 % (92-99) Arterial Blood pH 7.45 (7.35-7.45) Arterial Blood pCO2 at Patient Temp 39 mmHg (35-46) Arterial Blood pO2 at Patient Temp 71 mmHg (65-108) Arterial Blood HCO3 26 mmol/L (21-28) Arterial Blood Base Excess 2 mmol/L (-3-3) FiO2 40%+5 Results All relevant outside records, renal labs, imaging studies, telemetry/EKG's were reviewed. Justicifation of Admission Dx: Justifications for Admission: Justification of Admission Dx: Yes SUZANNE KATHLEEN MD Mar 12, 2020 12:42
--- NOTE | 2020-03-12 12:45 | PDOC ---
Objective: Objective: D/w nurse - had considered extubation but sats low this morning, plans for CXR. On TPN and IV PPI. Vital Signs: Vital Signs Date Time Temp Pulse Resp B/P (MAP) Pulse Ox O2 Delivery O2 Flow Rate FiO2 03/12/20 11:36 96 03/12/20 11:10 Ventilator 03/12/20 06:00 115 19 138/95 (109) 03/12/20 04:00 97.5 97.5 Labs: Please see EMR - unable to appropriately load into note currently. Material submitted: . PART A: colon - RIGHT COLON. Modifiers: right PART B: gallbladder - GALLBLADDER AND CONTENTS PART C: abdomen - RIGHT UPPER QUADRANT. Modifiers: right, upper Clinical history: . Obstructing colon mass, SBO, N/V, fatigue, hypocalcemia Distal ileum, cecum and attached appendix, and proximal ascending colon with attached mesocolon and omental apron: - Large circumferential ulcerated tumor mass of cecum, proximal ascending colon and ileocecal valve - proximal ileal and distal ascending colon margins of resection negative for tumor. - Focal tumor perforation of posterior aspect of cecum and proximal ascending colon. The specimen is received fresh and is designated "right colon". This consists of a short segment of distal ileum, cecum with attached appendix, and ascending colon with attached mesocolon and large portion of omental apron. This segment is stapled closed at both ends. The terminal ileum measures 5.5 cm in length and up to 4.5 cm in diameter. The cecum and ascending colon measure 19.0 cm in length. The cecum and proximal ascending colon measure up to 10 cm in diameter, corresponding to a large palpable tumor mass within the colon. The distal ascending colon measures 2.6 cm in diameter. The attached omentum measures 20.0 x 17.0 cm. The mesocolon measures up to 5.0 cm in depth. The appendix is pink-red and erythematous and measures 4.5 cm in length and 1.0 cm in diameter. The serosa is pink-vallejo and focally erythematous and contains a few adhesions. There is a defect of the posterior aspect of the cecum and proximal ascending colon which according to the surgeon corresponds to anarea of tumor perforation in the region of the duodenum and right kidney. The segment is opened longitudinally. The ileal mucosa is dark brown and transversely folded. There is a large circumferential pink to reddish-vallejo, ulcerated tumor mass involving the cecum, proximal ascending colon, and ileocecal valve. The tumor mass measures up to 12.5 cm in length. The tumor focally bridges the lumen of the proximal ascending colon. The tumor in the area of opening obliterates the muscular wall. The mucosa distal to the tumor of the ascending colon is glistening pink-vallejo and transversely folded. There are no additional polyps or tumor masses. There are no obvious tumor masses within the attached omentum. Diagnosis: A. 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 - Lymphovascular tumor invasion present. - Metastatic carcinoma involving 1 of 14 mesocolic lymph nodes. - Tumor involvement of radial margin of posterior aspect of cecum and proximal ascending colon. - Proximal (distal ileum) and distal (ascending colon) margins of resection negative for tumor. - Hypertrophy of muscular wall of appendix with focal serosal lymphovascular tumor invasion of proximal appendix. - Omentum negative for tumor. - Serosal adhesions of colon and appendix, focal. B. Gallbladder, open cholecystectomy: - Polypoid cholesterolosis. - Chronic cholecystitis. C. Tissue designated "right upper quadrant": - Segments of tumor showing invasive colorectal adenocarcinoma with prominent mucinous component, moderately differentiated. Imaging: CXR 03/12 IMPRESSION: 1. Increased patchy airspace opacity at the right lung base suggestive of worsening pulmonary infiltrate. 2. Similar position and appearance of support lines and tubes. PE: GEN: intubated LUNGS: crackles/coarse, vent HEART: tachycardic ABD: soft, quiet NEURO/PSYCH: awake, waving arms around A/P: Colon cancer s/p right colon resection, partial resection of duodenum, duodenostomy tube, cholecystectomy, ghost ileostomy Resp failure ACD -- Seen this morning when [employer] unavailable Interval CXR as above. Continue per pulm and surgery. Justicifation of Admission Dx: Justifications for Admission: Justification of Admission Dx: Yes LONG RIOS Mar 12, 2020 12:45
--- NOTE | 2020-03-12 14:32 | PDOC2 ---
DELANO MORAES BUSINESS INTELLIGENCE ARCHITECT 03/12/20 1432: CARDIAC CONSULT DATE OF CONSULT Date of Consult DATE: 03/12/20 TIME: 13:50 REASON FOR CONSULT Reason for Consult: SVT REFERRING PHYSICIAN Referring Physician: Dr. Dickens SOURCE Source: Chart review HISTORY OF PRESENT ILLNESS HISTORY OF PRESENT ILLNESS This is a 69 yo male who initially presented 03/02 due to weakness, fatigue, and weight loss. Further imaging notable for obstructing colonic mass. Patient underwent Open right colon resection, partial resection of duodenum, placement of duodenostomy tube, cholecystectomy with cholangiogram, ghost ileostomy. Remains of ventilator post surgical intervention. This morning, went into SVT, which prompted this consult. HPI obtained from chart review as patient is intubated/sedated. Is off pressor support. PAST MEDICAL HISTORY Cardiovascular: HTN Pulmonary: No pertinent hx Heme/Onc: Cancer (colon ) Renal/: Prostate Ca. PAST SURGICAL HISTORY Past Surgical History: No pertinent history FAMILY HISTORY Family History: Family History Unknown SOCIAL HISTORY Smoke: <1 pack per day ALCOHOL: none Drugs: None CURRENT MEDICATIONS CURRENT MEDICATIONS Current Medications Medications (Trade) Dose Ordered Sig/Faisal Route PRN Reason Start Time Stop Time Status Last Admin Dose Admin Sodium Chloride 100 meq/Sodium Phosphate 15 mmol/ Potassium Chloride 50 meq/ Potassium Phosphate 18 mmol/ Magnesium Sulfate 15 meq/Calcium Gluconate 10 meq/ Multivitamins 10 ml/Chromium/ Copper/Manganese/ Seleni/Zn 1 ml/ Total Parenteral Nutrition/Amino Acids/Dextrose/ Fat Emulsion Intravenous 1,920 ml @ 80 mls/hr TPN CONT IV 03/11/20 22:00 03/12/20 21:59 03/11/20 21:52 ALLERGIES ALLERGIES: Coded Allergies: aspirin (Verified Allergy, Severe, "SWELLING", 03/02/20) ROS Review of System unobtainable PHYSICAL EXAM General: Other (mild sedation ) HEENT: Atraumatic, Other (intubated ) Lungs: Other (mechanical vent ) Heart: Regular rate (ST) Abdomen: Soft Extremities: Other (2+ bilateral LE pitting edema, anasarca ) MUSCULOSKELETAL: Osteoarthritic changes both hands VITALS/I&O VITALS/I&O: Vital Signs Date Time Temp Pulse Resp B/P (MAP) Pulse Ox O2 Delivery O2 Flow Rate FiO2 03/12/20 11:36 96 03/12/20 11:10 Ventilator 03/12/20 06:00 115 19 138/95 (109) 03/12/20 04:00 97.5 97.5 I & O 0 03/11/20 03/11/20 03/12/20 15:00 23:00 07:00 Intake Total 1097.33 ml 1296.52 ml 1221 ml Output Total 1750 ml 3380 ml 1750 ml Balance -652.67 ml -2083.48 ml -529 ml LABS Lab: Laboratory Tests Test 03/12/20 04:30 03/12/20 08:00 White Blood Count 9.0 x10^3/uL (4.0-11.0) Red Blood Count 3.87 x10^6/uL (4.30-5.70) L Hemoglobin 9.9 g/dL (13.0-17.5) #L Hematocrit 30.9 % (39.0-53.0) L Mean Corpuscular Volume 80 fL (79-100) Mean Corpuscular Hemoglobin 26 pg (25-35) Mean Corpuscular Hemoglobin Concent 32 g/dL (31-37) Red Cell Distribution Width 27.1 % (11.5-14.5) H Platelet Count 254 x10^3/uL (140-400) Neutrophils (%) (Auto) 87 % (31-73) H Lymphocytes (%) (Auto) 4 % (24-48) L Monocytes (%) (Auto) 9 % (0-9) Eosinophils (%) (Auto) 0 % (0-3) Basophils (%) (Auto) 0 % (0-3) Neutrophils # (Auto) 7.7 x10^3/uL (1.8-7.7) Lymphocytes # (Auto) 0.3 x10^3/uL (1.0-4.8) L Monocytes # (Auto) 0.8 x10^3/uL (0.0-1.1) Eosinophils # (Auto) 0.0 x10^3/uL (0.0-0.7) Basophils # (Auto) 0.0 x10^3/uL (0.0-0.2) Sodium Level 144 mmol/L (136-145) # Potassium Level 4.0 mmol/L (3.5-5.1) Chloride Level 111 mmol/L (98-107) H Carbon Dioxide Level 29 mmol/L (21-32) Anion Gap 4 (6-14) L Blood Urea Nitrogen 11 mg/dL (8-26) Creatinine 0.6 mg/dL (0.7-1.3) L Estimated GFR (Cockcroft-Gault) 132.8 BUN/Creatinine Ratio 18 (6-20) Glucose Level 101 mg/dL (70-99) H Calcium Level 6.9 mg/dL (8.5-10.1) L Phosphorus Level 3.4 mg/dL (2.6-4.7) Magnesium Level 2.2 mg/dL (1.8-2.4) Total Bilirubin 0.2 mg/dL (0.2-1.0) Aspartate Amino Transferase (AST) 16 U/L (15-37) Alanine Aminotransferase (ALT) 15 U/L (16-63) L Alkaline Phosphatase 779 U/L (46-116) H Total Protein 4.2 g/dL (6.4-8.2) L Albumin 0.8 g/dL (3.4-5.0) L Albumin/Globulin Ratio 0.2 (1.0-1.7) L O2 Saturation 94 % (92-99) Arterial Blood pH 7.45 (7.35-7.45) Arterial Blood pCO2 at Patient Temp 39 mmHg (35-46) Arterial Blood pO2 at Patient Temp 71 mmHg (65-108) Arterial Blood HCO3 26 mmol/L (21-28) Arterial Blood Base Excess 2 mmol/L (-3-3) FiO2 40%+5 Laboratory Tests 03/12/20 04:30 Laboratory Tests 03/12/20 04:30 ASSESSMENT/PLAN ASSESSMENT/PLAN 1. Obstructive colonic mass; s/p open colon resection, cholecystectomy. Path c/w metastatic adenocarcinoma 2. Acute respiratory failure, post-operative. S/p intubation. ? PNA 3. Arrhythmia; Brief period of SVT. Otherwise, has been maintaining SR/ST 4. Acute blood loss anemia, s/p transfusion 5. Hypertension; controlled/adequate 6. Hypocalcemia 7. Protein calorie malnutrition, anasarca; on TPN 8. H/o prostate CA, BPH 9. Tobaccoism Recommendations Metoprolol IV PRN for rate control TSH Echo to assess LV systolic function Monitor H and H; transfuse as warranted Nutritional support Supportive care JAMMIE HARDING MD 03/13/20 1512: CARDIAC CONSULT ASSESSMENT/PLAN ASSESSMENT/PLAN Late entry for 03/12/2020 Patient seen and examined. Agree with above nurse practitioner note. No specific cardiac interventions warranted. Echocardiogram is unremarkable. Supportive care. DELANO MORAES APRN Mar 12, 2020 14:32 JAMMIE HARDING MD Mar 13, 2020 15:12
[2020-03-12 16:28] LABS: BASE EXCESS ABG -1 mmol/L (-3-3); HCO3 ABG 23 mmol/L (21-28); PCO2 ABG 37 mmHg (35-46); SAT O2 ABG 80 % (92-99)
[2020-03-12 16:29] LABS: FIO2 ABG 40%+5; PO2 ABG 46 mmHg (65-108)
--- NOTE | 2020-03-12 16:55 | CARD ---
MR#: [id number] Date of Study: 03/12/2020 Ordering Physician: DELANO MORAES, Referring Physician: DELANO MORAES, Tech: Jammie Pizano LEBRON APPROVED REPORT EXAM: Two-dimensional and M-mode echocardiogram with Doppler and color Doppler. Other Information Quality : Technically Limited Technically limited study due to barrel chest and intubation. INDICATION Supraventricular Tachycardia 2D DIMENSIONS RVDd3.4 (2.9-3.5cm)Left Atrium(2D)2.8 (1.6-4.0cm) IVSd1.1 (0.7-1.1cm)Aortic Root(2D)3.6 (2.0-3.7cm) LVDd4.3 (3.9-5.9cm)LVOT Diameter2.2 (1.8-2.4cm) PWd1.2 (0.7-1.1cm)LVDs3.1 (2.5-4.0cm) FS (%) 27.3 %SV44.9 ml LVEF(%)53.4 (>50%) TDI Medial E' P. V5.34cm/s Tricuspid Valve TR P. [id number] TR Peak [id number] LEFT VENTRICLE The left ventricle is normal size. There is normal left ventricular wall thickness. The left ventricu lar systolic function is normal and the ejection fraction is within normal range. The Ejection Fracti on is 55-60%. Septal motion consistent with conduction abnormality. Grossly normal wall motion, not w ell visualized due to limited images. RIGHT VENTRICLE The right ventricle is normal size. The right ventricular systolic function is normal. ATRIA The left atrium size is normal. The right atrium size is normal. The interatrial septum is intact wit h no evidence for an atrial septal defect or patent foramen ovale as noted on 2-D or Doppler imaging. AORTIC VALVE The aortic valve is not well visualized. MITRAL VALVE The mitral valve is calcified but opens well. TRICUSPID VALVE The tricuspid valve is normal in structure and function. Doppler and Color Flow revealed trace to mil d tricuspid regurgitation. There is mild pulmonary hypertension. The PA pressure was estimated at 34 mmHg. There is no tricuspid valve stenosis. PULMONIC VALVE The pulmonic valve is not well visualized. GREAT VESSELS The aortic root is normal in size. The ascending aorta is not well seen. The IVC was not visualized d ue to surgical wound dressing. PERICARDIAL EFFUSION There is moderate pleural effusion. There is no evidence of significant pericardial effusion. Critical Notification Critical Value: No <Conclusion> The left ventricular systolic function is normal and the ejection fraction is within normal range. Th e Ejection Fraction is 55-60%. Septal motion consistent with conduction abnormality. Grossly normal wall motion, not well visualized due to limited images. There is moderate pleural effusion. Signed by : Zenon Macdonald, Electronically Approved : 03/12/2020 16:55:28
[2020-03-12] MEDS: METOPROLOL TARTRATE 5 MG/5 ML VIAL. IVP SCH ×2 (16:56→23:52)
--- NOTE | 2020-03-12 17:22 | RAD ---
EXAM: Chest, single view. HISTORY: Decreased oxygen saturation. COMPARISON: 03/12/2020 FINDINGS: A frontal view of the chest is obtained. There has been no significant change in small left greater than right pleural effusions and lateral lower lobe predominant infiltrate. There is no pneumothorax. There is a left PICC with the tip in the superior cava. There is an endotracheal tube within the mid trachea. There is a nasogastric tube within the stomach. IMPRESSION: No significant change in left greater than right pleural effusions and bilateral lower lobe predominant pulmonary infiltrate. Electronically signed by: Margarita Yusuf MD (03/12/2020 5:19 PM) [id number]
--- NOTE | 2020-03-12 17:35 | NUR ---
Pharmacy TPN Dosing Note S: FABIANO HELLER is a 69 year old M Currently receiving Central Continuous TPN started 03/08/20 B:Pertinent PMH: NPO/SBO Height: 6 feet, 3 inches Weight: 91.5 kg Current diet: NPO LABS: Sodium: 144 Potassium: 4.0 Chloride: 111 Calcium: 6.9 Corrected Calcium: 9.54 Magnesium: 2.2 CO2: 29 SCr: 0.5 Glucose: 101 Albumin: 0.7 AST: 16 ALT: 15 TPN FORMULA: TPN TYPE: Central Continuous AMINO ACIDS: 95 gm DEXTROSE: 225 gm LIPIDS: 20 gm SODIUM CHLORIDE: 80 mEq SODIUM ACETATE: - mEq SODIUM PHOSPHATE: 15 mmol POTASSIUM CHLORIDE: 50 mEq POTASSIUM ACETATE: - mEq POTASSIUM PHOSPHATE: 18 mmol MAGNESIUM: 12 mEq CALCIUM: 10 mEq INSULIN: - units MULTIPLE VITAMIN: 10 ml TRACE ELEMENTS: 1 ml ml(s) TPN PLAN: DECREASE NACL TO 80 MEQ, KPHOS TO 15 MM, MAGSO4 TO 12 MEQ R: Continue TPN Will monitor electrolytes, glucose, and tolerance to TPN. NOMI [facility], 03/12/20 [id number]
[2020-03-12] MEDS: NORMAL SALINE IV PRN (20:42)
[2020-03-12] MEDS: MIDAZOLAM HCL IV PRN (20:42)
[2020-03-12] MEDS: TAMSULOSIN 0.4 MG CAP.ER.24H. PO SCH (20:47)
[2020-03-12] MEDS ORDERED: AMINO ACID IV SCH (22:00)
[2020-03-12] MEDS ORDERED: DEXTROSE 70% IV SCH (22:00)
[2020-03-12] MEDS ORDERED: [UNRECOGNIZED DRUG - OTHER] IV SCH (22:00)
[2020-03-12] MEDS ORDERED: TOTAL PARENTERAL NUTRITION IV SCH (22:00)
--- NOTE | 2020-03-12 23:50 | NUR ---
Patient 02 sat dropped to 78-84% on 60% and peep of 7 at 2335. Patient suctioned but 02 sat didn't recoved. Vent settings increased to 100% and peep of 10. 02 sats up to 94%. Will continue to titrate 02 depending on patient 02 sat. Will monitor.
[2020-03-13] VITALS (23 sets, daily range): BP systolic 83–176; BP diastolic 51–108
[2020-03-13] MEDS ORDERED: ALBUTEROL SULFATE 2.5 MG/3 ML NEBU. NEB ONE
[2020-03-13] MEDS: PIPERACILLIN/TAZOBACTAM 3.375 GM in IV NORMAL SALINE 50ML 50 ML IV SCH ×4 (06:15→23:57)
[2020-03-13] MEDS: METOPROLOL TARTRATE 5 MG/5 ML VIAL. IVP SCH ×4 (06:16→23:57)
[2020-03-13 06:49] LABS: BASO % 0 % (0-3); EOS % 0 % (0-3); HEMATOCRIT 33.9 % (39.0-53.0); LYMPH # 0.3 x10^3/uL (1.0-4.8); LYMPH % 3 % (24-48); MEAN CORPUSCULAR HEMOGLOBIN 26 pg (25-35); MEAN CORPUSCULAR HGB CONC 33 g/dL (31-37); MEAN CORPUSCULAR VOLUME 81 fL (79-100); MONO # 0.9 x10^3/uL (0.0-1.1); MONO % 8 % (0-9); NEUT # 9.7 x10^3/uL (1.8-7.7); NEUT % 89 % (31-73); PLATELET COUNT 268 x10^3/uL (140-400); RED CELL DISTRIBUTION WIDTH 28.2 % (11.5-14.5)
[2020-03-13 07:19] LABS: CREATININE 0.5 mg/dL (0.7-1.3); GFR 163.9; POTASSIUM 4.1 mmol/L (3.5-5.1)
[2020-03-13 07:54] LABS: BASE EXCESS ABG -1 mmol/L (-3-3); HCO3 ABG 23 mmol/L (21-28); PCO2 ABG 33 mmHg (35-46); PO2 ABG 130 mmHg (65-108); SAT O2 ABG 98 % (92-99)
[2020-03-13 07:56] LABS: FIO2 ABG 60
[2020-03-13 07:56] LABS: % LYMPHS 3 % (24-48); % MONOS 5 % (0-10); % SEGS 92 % (35-66); ANISOCYTOSIS MOD; PLT ESTIMATE ADEQUATE (ADEQUATE); POLYCHROMASIA SLIGHT
[2020-03-13 07:57] LABS: TOXIC GRANULATION SLIGHT
[2020-03-13] MEDS: NORMAL SALINE IV PRN ×2 (08:16→19:50)
[2020-03-13] MEDS: MIDAZOLAM HCL IV PRN ×2 (08:16→19:50)
[2020-03-13] MEDS: PANTOPRAZOLE IV PUSH 40 MG VIAL. IVP SCH (08:25)
[2020-03-13] MEDS: ENOXAPARIN 40 MG/0.4 ML SYRINGE. SQ SCH (08:25)
[2020-03-13] MEDS: TPN PER PHARMACY MC PRN (08:29)
--- NOTE | 2020-03-13 08:31 | NUR ---
Pharmacy TPN Dosing Note S: FABIANO HELLER is a 69 year old M Currently receiving Central Continuous TPN started 03/08/20 B:Pertinent PMH: NPO/SBO Height: 6 feet, 3 inches Weight: 90.2 kg Current diet: NPO LABS: Sodium: 143 Potassium: 4.1 Chloride: 110 Calcium: 7.0 Corrected Calcium: 9.56 Magnesium: 2.2 CO2: 29 SCr: 0.5 Glucose: 103 Albumin: 0.8 AST: 16 ALT: 15 TPN FORMULA: TPN TYPE: Central Continuous AMINO ACIDS: 95 gm DEXTROSE: 225 gm LIPIDS: 20 gm SODIUM CHLORIDE: 80 mEq SODIUM PHOSPHATE: 15 mmol POTASSIUM CHLORIDE: 50 mEq POTASSIUM PHOSPHATE: 18 mmol MAGNESIUM: 12 mEq CALCIUM: 10 mEq MULTIPLE VITAMIN: 10 ml TRACE ELEMENTS: 1 ml TPN PLAN: Continue same. R: Continue TPN Will monitor electrolytes, glucose, and tolerance to TPN. Lianna Singh RPH, 03/13/20 0831
--- NOTE | 2020-03-13 08:43 | PDOC ---
PULMONARY PROGRESS NOTES Subjective Continues in A/C mode on Vent -- Sedated. Vitals Vital Signs Date Time Temp Pulse Resp B/P (MAP) Pulse Ox O2 Delivery O2 Flow Rate FiO2 03/13/20 08:19 100 03/13/20 07:29 Ventilator 03/13/20 06:16 113 147/106 03/13/20 06:00 25 03/13/20 04:00 97.7 97.7 Comments intubated/sedated Lungs: Clear Cardiovascular: S1, S2 Abdomen: Other (Dressing in place, jace drain ) Extremities: No Edema Skin: Warm Labs Laboratory Tests Test 03/12/20 04:30 03/12/20 08:00 03/12/20 16:09 03/13/20 05:30 White Blood Count 9.0 x10^3/uL (4.0-11.0) 11.0 x10^3/uL (4.0-11.0) Red Blood Count 3.87 x10^6/uL (4.30-5.70) 4.20 x10^6/uL (4.30-5.70) Hemoglobin 9.9 g/dL (13.0-17.5) 11.0 g/dL (13.0-17.5) Hematocrit 30.9 % (39.0-53.0) 33.9 % (39.0-53.0) Mean Corpuscular Volume 80 fL (79-100) 81 fL (79-100) Mean Corpuscular Hemoglobin 26 pg (25-35) 26 pg (25-35) Mean Corpuscular Hemoglobin Concent 32 g/dL (31-37) 33 g/dL (31-37) Red Cell Distribution Width 27.1 % (11.5-14.5) 28.2 % (11.5-14.5) Platelet Count 254 x10^3/uL (140-400) 268 x10^3/uL (140-400) Neutrophils (%) (Auto) 87 % (31-73) 89 % (31-73) Lymphocytes (%) (Auto) 4 % (24-48) 3 % (24-48) Monocytes (%) (Auto) 9 % (0-9) 8 % (0-9) Eosinophils (%) (Auto) 0 % (0-3) 0 % (0-3) Basophils (%) (Auto) 0 % (0-3) 0 % (0-3) Neutrophils # (Auto) 7.7 x10^3/uL (1.8-7.7) 9.7 x10^3/uL (1.8-7.7) Lymphocytes # (Auto) 0.3 x10^3/uL (1.0-4.8) 0.3 x10^3/uL (1.0-4.8) Monocytes # (Auto) 0.8 x10^3/uL (0.0-1.1) 0.9 x10^3/uL (0.0-1.1) Eosinophils # (Auto) 0.0 x10^3/uL (0.0-0.7) 0.0 x10^3/uL (0.0-0.7) Basophils # (Auto) 0.0 x10^3/uL (0.0-0.2) 0.0 x10^3/uL (0.0-0.2) Sodium Level 144 mmol/L (136-145) 143 mmol/L (136-145) Potassium Level 4.0 mmol/L (3.5-5.1) 4.1 mmol/L (3.5-5.1) Chloride Level 111 mmol/L (98-107) 110 mmol/L (98-107) Carbon Dioxide Level 29 mmol/L (21-32) 29 mmol/L (21-32) Anion Gap 4 (6-14) 4 (6-14) Blood Urea Nitrogen 11 mg/dL (8-26) 15 mg/dL (8-26) Creatinine 0.6 mg/dL (0.7-1.3) 0.5 mg/dL (0.7-1.3) Estimated GFR (Cockcroft-Gault) 132.8 163.9 BUN/Creatinine Ratio 18 (6-20) Glucose Level 101 mg/dL (70-99) 103 mg/dL (70-99) Calcium Level 6.9 mg/dL (8.5-10.1) 7.0 mg/dL (8.5-10.1) Phosphorus Level 3.4 mg/dL (2.6-4.7) Magnesium Level 2.2 mg/dL (1.8-2.4) Total Bilirubin 0.2 mg/dL (0.2-1.0) Aspartate Amino Transf (AST/SGOT) 16 U/L (15-37) Alanine Aminotransferase (ALT/SGPT) 15 U/L (16-63) Alkaline Phosphatase 779 U/L (46-116) Total Protein 4.2 g/dL (6.4-8.2) Albumin 0.8 g/dL (3.4-5.0) Albumin/Globulin Ratio 0.2 (1.0-1.7) Thyroid Stimulating Hormone (TSH) 1.438 uIU/mL (0.358-3.74) O2 Saturation 94 % (92-99) 80 % (92-99) Arterial Blood pH 7.45 (7.35-7.45) 7.42 (7.35-7.45) Arterial Blood pCO2 at Patient Temp 39 mmHg (35-46) 37 mmHg (35-46) Arterial Blood pO2 at Patient Temp 71 mmHg (65-108) 46 mmHg (65-108) Arterial Blood HCO3 26 mmol/L (21-28) 23 mmol/L (21-28) Arterial Blood Base Excess 2 mmol/L (-3-3) -1 mmol/L (-3-3) FiO2 40%+5 40%+5 Segmented Neutrophils % 92 % (35-66) Lymphocytes % 3 % (24-48) Monocytes % 5 % (0-10) Toxic Granulation Slight Platelet Estimate Adequate (ADEQUATE) Polychromasia Slight Anisocytosis Mod Test 03/13/20 07:45 O2 Saturation 98 % (92-99) Arterial Blood pH 7.45 (7.35-7.45) Arterial Blood pCO2 at Patient Temp 33 mmHg (35-46) Arterial Blood pO2 at Patient Temp 130 mmHg (65-108) Arterial Blood HCO3 23 mmol/L (21-28) Arterial Blood Base Excess -1 mmol/L (-3-3) FiO2 60 Laboratory Tests Test 03/12/20 16:09 03/13/20 05:30 03/13/20 07:45 O2 Saturation 80 % (92-99) 98 % (92-99) Arterial Blood pH 7.42 (7.35-7.45) 7.45 (7.35-7.45) Arterial Blood pCO2 at Patient Temp 37 mmHg (35-46) 33 mmHg (35-46) Arterial Blood pO2 at Patient Temp 46 mmHg (65-108) 130 mmHg (65-108) Arterial Blood HCO3 23 mmol/L (21-28) 23 mmol/L (21-28) Arterial Blood Base Excess -1 mmol/L (-3-3) -1 mmol/L (-3-3) FiO2 40%+5 60 White Blood Count 11.0 x10^3/uL (4.0-11.0) Red Blood Count 4.20 x10^6/uL (4.30-5.70) Hemoglobin 11.0 g/dL (13.0-17.5) Hematocrit 33.9 % (39.0-53.0) Mean Corpuscular Volume 81 fL (79-100) Mean Corpuscular Hemoglobin 26 pg (25-35) Mean Corpuscular Hemoglobin Concent 33 g/dL (31-37) Red Cell Distribution Width 28.2 % (11.5-14.5) Platelet Count 268 x10^3/uL (140-400) Neutrophils (%) (Auto) 89 % (31-73) Lymphocytes (%) (Auto) 3 % (24-48) Monocytes (%) (Auto) 8 % (0-9) Eosinophils (%) (Auto) 0 % (0-3) Basophils (%) (Auto) 0 % (0-3) Neutrophils # (Auto) 9.7 x10^3/uL (1.8-7.7) Lymphocytes # (Auto) 0.3 x10^3/uL (1.0-4.8) Monocytes # (Auto) 0.9 x10^3/uL (0.0-1.1) Eosinophils # (Auto) 0.0 x10^3/uL (0.0-0.7) Basophils # (Auto) 0.0 x10^3/uL (0.0-0.2) Segmented Neutrophils % 92 % (35-66) Lymphocytes % 3 % (24-48) Monocytes % 5 % (0-10) Toxic Granulation Slight Platelet Estimate Adequate (ADEQUATE) Polychromasia Slight Anisocytosis Mod Sodium Level 143 mmol/L (136-145) Potassium Level 4.1 mmol/L (3.5-5.1) Chloride Level 110 mmol/L (98-107) Carbon Dioxide Level 29 mmol/L (21-32) Anion Gap 4 (6-14) Blood Urea Nitrogen 15 mg/dL (8-26) Creatinine 0.5 mg/dL (0.7-1.3) Estimated GFR (Cockcroft-Gault) 163.9 Glucose Level 103 mg/dL (70-99) Calcium Level 7.0 mg/dL (8.5-10.1) Medications Active Scripts Medications Dose Route/Sig Max Daily Dose Days Date Category Flomax (Tamsulosin Hcl) 0.4 Mg Cap.er.24h 1 Cap PO QHS 03/02/20 Reported Comments CXR 03/11/20 IMPRESSION: 1. Stable left basilar opacities and small left pleural effusion. 2. Stable life support devices. Impression . IMPRESSION: 1. Acute hypoxemic respiratory failure, expected status post surgical intervention for colonic mass. 2. Obstructing colonic cancer. 3. History of prostate cancer. 4. Severe protein malnutrition present upon admission. 5. Tobacco dependent. 6. Chronic obstructive pulmonary disease. 7. SARS-CoV-2 negative. 8. Cholelithiasis. 9. Hyponatremia. 10. Protein malnutrition, present upon admission. 11. Benign prostatic hypertrophy. 12. S/p open right colon resection, partial resection of duodenum, placement of duodenostomy tube, cholecystectomy, ghost ileostomy 13. Acute blood loss anemia 14. Respiratory alkalosis 15. Hypocalcemia-- correct calcium WNL Plan . We will try to decrease sedation, and placed on pressure support DVT GI prophylaxis ABG noted Monitor H&H Follow nephrology recs Cont. vasopressors to Keep MAP above 65--now off levo Cont. TPN for nutrition Cont. ABX DVT GI prophylaxis D/W RN and RT Total cumulative critical care time of 30 minutes reviewing data, labs, chest x-ray and formulating a plan. DOTTIE WILBURN MD Mar 13, 2020 08:43
--- NOTE | 2020-03-13 08:44 | PDOC ---
PROGRESS NOTES Chief Complaint Chief Complaint LATE ENTRY, seen 7, ryan and discussed with RN, then computers went down nause and vomiting with abd pain Fatigue Weight Loss Small bowel dilatation/obstruction suspicious for primary colon cancer 10.5cm mass with surrounding lymph nodes concerning for metastatic disease 10.5 cm colonic mass. Colonic mass abuts the right hepatic lobe inferior margin as well as the duodenum and anterior right kidney (extending through or deforming Gerota's fascia), suspicious for primary colon cancer. Prominent associated lymph nodes are seen, possibly metastatic Obstructing right colon cancer Dialated Appendix fatty liver dz Gallstones Microcytic Anemia Alkaline Phosphatemia Hyponatremia Mild Leukocytosis Tachycardia H/o prostate cancer in remission Severe protein calorie malnutrition LE edema - BNP of 350, no cardiac history and no symptoms of CHF. This is unlikely to be cardiac related at all. Likely likely lymphatic obstruction due to abdominal mass. Hyponatremia - likely due to poor PO intake, SERUM OSMOLALITY PENDING HYPOTENSION, POSSIBLE SEPSIS NPO vent support post=op s/p open right colon POD # 1 remains critically ill 38 min cc time History of Present Illness History of Present Illness wean pressors, wean sedation, doing better septic and shock cont current Vitals Vitals Vital Signs Date Time Temp Pulse Resp B/P (MAP) Pulse Ox O2 Delivery O2 Flow Rate FiO2 03/13/20 08:19 100 03/13/20 07:29 Ventilator 03/13/20 06:16 113 147/106 03/13/20 06:00 25 03/13/20 04:00 97.7 97.7 Physical Exam Physical Exam SEDATED ON VENT General: Other (mild sedation ) Heart: Regular rate (ST) Lungs: Clear Abdomen: Soft Extremities: Other (2+ bilateral LE pitting edema, anasarca ) Skin: No significant lesion Labs LABS Laboratory Tests Test 03/12/20 16:09 03/13/20 05:30 03/13/20 07:45 O2 Saturation 80 % (92-99) 98 % (92-99) Arterial Blood pH 7.42 (7.35-7.45) 7.45 (7.35-7.45) Arterial Blood pCO2 at Patient Temp 37 mmHg (35-46) 33 mmHg (35-46) Arterial Blood pO2 at Patient Temp 46 mmHg (65-108) 130 mmHg (65-108) Arterial Blood HCO3 23 mmol/L (21-28) 23 mmol/L (21-28) Arterial Blood Base Excess -1 mmol/L (-3-3) -1 mmol/L (-3-3) FiO2 40%+5 60 White Blood Count 11.0 x10^3/uL (4.0-11.0) Red Blood Count 4.20 x10^6/uL (4.30-5.70) Hemoglobin 11.0 g/dL (13.0-17.5) Hematocrit 33.9 % (39.0-53.0) Mean Corpuscular Volume 81 fL (79-100) Mean Corpuscular Hemoglobin 26 pg (25-35) Mean Corpuscular Hemoglobin Concent 33 g/dL (31-37) Red Cell Distribution Width 28.2 % (11.5-14.5) Platelet Count 268 x10^3/uL (140-400) Neutrophils (%) (Auto) 89 % (31-73) Lymphocytes (%) (Auto) 3 % (24-48) Monocytes (%) (Auto) 8 % (0-9) Eosinophils (%) (Auto) 0 % (0-3) Basophils (%) (Auto) 0 % (0-3) Neutrophils # (Auto) 9.7 x10^3/uL (1.8-7.7) Lymphocytes # (Auto) 0.3 x10^3/uL (1.0-4.8) Monocytes # (Auto) 0.9 x10^3/uL (0.0-1.1) Eosinophils # (Auto) 0.0 x10^3/uL (0.0-0.7) Basophils # (Auto) 0.0 x10^3/uL (0.0-0.2) Segmented Neutrophils % 92 % (35-66) Lymphocytes % 3 % (24-48) Monocytes % 5 % (0-10) Toxic Granulation Slight Platelet Estimate Adequate (ADEQUATE) Polychromasia Slight Anisocytosis Mod Sodium Level 143 mmol/L (136-145) Potassium Level 4.1 mmol/L (3.5-5.1) Chloride Level 110 mmol/L (98-107) Carbon Dioxide Level 29 mmol/L (21-32) Anion Gap 4 (6-14) Blood Urea Nitrogen 15 mg/dL (8-26) Creatinine 0.5 mg/dL (0.7-1.3) Estimated GFR (Cockcroft-Gault) 163.9 Glucose Level 103 mg/dL (70-99) Calcium Level 7.0 mg/dL (8.5-10.1) Assessment and Plan Assessmemt and Plan Problems Medical Problems: (1) Anemia Status: Acute (2) Colonic mass Status: Acute (3) Fatigue Status: Acute (4) Hypocalcemia Status: Acute (5) Nausea & vomiting Status: Acute (6) SBO (small bowel obstruction) Status: Acute Comment Review of Relevant I have reviewed the following items radhames (where applicable) has been applied. Labs Laboratory Tests Test 03/12/20 04:30 03/12/20 08:00 03/12/20 16:09 03/13/20 05:30 White Blood Count 9.0 x10^3/uL (4.0-11.0) 11.0 x10^3/uL (4.0-11.0) Red Blood Count 3.87 x10^6/uL (4.30-5.70) 4.20 x10^6/uL (4.30-5.70) Hemoglobin 9.9 g/dL (13.0-17.5) 11.0 g/dL (13.0-17.5) Hematocrit 30.9 % (39.0-53.0) 33.9 % (39.0-53.0) Mean Corpuscular Volume 80 fL (79-100) 81 fL (79-100) Mean Corpuscular Hemoglobin 26 pg (25-35) 26 pg (25-35) Mean Corpuscular Hemoglobin Concent 32 g/dL (31-37) 33 g/dL (31-37) Red Cell Distribution Width 27.1 % (11.5-14.5) 28.2 % (11.5-14.5) Platelet Count 254 x10^3/uL (140-400) 268 x10^3/uL (140-400) Neutrophils (%) (Auto) 87 % (31-73) 89 % (31-73) Lymphocytes (%) (Auto) 4 % (24-48) 3 % (24-48) Monocytes (%) (Auto) 9 % (0-9) 8 % (0-9) Eosinophils (%) (Auto) 0 % (0-3) 0 % (0-3) Basophils (%) (Auto) 0 % (0-3) 0 % (0-3) Neutrophils # (Auto) 7.7 x10^3/uL (1.8-7.7) 9.7 x10^3/uL (1.8-7.7) Lymphocytes # (Auto) 0.3 x10^3/uL (1.0-4.8) 0.3 x10^3/uL (1.0-4.8) Monocytes # (Auto) 0.8 x10^3/uL (0.0-1.1) 0.9 x10^3/uL (0.0-1.1) Eosinophils # (Auto) 0.0 x10^3/uL (0.0-0.7) 0.0 x10^3/uL (0.0-0.7) Basophils # (Auto) 0.0 x10^3/uL (0.0-0.2) 0.0 x10^3/uL (0.0-0.2) Sodium Level 144 mmol/L (136-145) 143 mmol/L (136-145) Potassium Level 4.0 mmol/L (3.5-5.1) 4.1 mmol/L (3.5-5.1) Chloride Level 111 mmol/L (98-107) 110 mmol/L (98-107) Carbon Dioxide Level 29 mmol/L (21-32) 29 mmol/L (21-32) Anion Gap 4 (6-14) 4 (6-14) Blood Urea Nitrogen 11 mg/dL (8-26) 15 mg/dL (8-26) Creatinine 0.6 mg/dL (0.7-1.3) 0.5 mg/dL (0.7-1.3) Estimated GFR (Cockcroft-Gault) 132.8 163.9 BUN/Creatinine Ratio 18 (6-20) Glucose Level 101 mg/dL (70-99) 103 mg/dL (70-99) Calcium Level 6.9 mg/dL (8.5-10.1) 7.0 mg/dL (8.5-10.1) Phosphorus Level 3.4 mg/dL (2.6-4.7) Magnesium Level 2.2 mg/dL (1.8-2.4) Total Bilirubin 0.2 mg/dL (0.2-1.0) Aspartate Amino Transf (AST/SGOT) 16 U/L (15-37) Alanine Aminotransferase (ALT/SGPT) 15 U/L (16-63) Alkaline Phosphatase 779 U/L (46-116) Total Protein 4.2 g/dL (6.4-8.2) Albumin 0.8 g/dL (3.4-5.0) Albumin/Globulin Ratio 0.2 (1.0-1.7) Thyroid Stimulating Hormone (TSH) 1.438 uIU/mL (0.358-3.74) O2 Saturation 94 % (92-99) 80 % (92-99) Arterial Blood pH 7.45 (7.35-7.45) 7.42 (7.35-7.45) Arterial Blood pCO2 at Patient Temp 39 mmHg (35-46) 37 mmHg (35-46) Arterial Blood pO2 at Patient Temp 71 mmHg (65-108) 46 mmHg (65-108) Arterial Blood HCO3 26 mmol/L (21-28) 23 mmol/L (21-28) Arterial Blood Base Excess 2 mmol/L (-3-3) -1 mmol/L (-3-3) FiO2 40%+5 40%+5 Segmented Neutrophils % 92 % (35-66) Lymphocytes % 3 % (24-48) Monocytes % 5 % (0-10) Toxic Granulation Slight Platelet Estimate Adequate (ADEQUATE) Polychromasia Slight Anisocytosis Mod Test 03/13/20 07:45 O2 Saturation 98 % (92-99) Arterial Blood pH 7.45 (7.35-7.45) Arterial Blood pCO2 at Patient Temp 33 mmHg (35-46) Arterial Blood pO2 at Patient Temp 130 mmHg (65-108) Arterial Blood HCO3 23 mmol/L (21-28) Arterial Blood Base Excess -1 mmol/L (-3-3) FiO2 60 Laboratory Tests Test 03/12/20 16:09 03/13/20 05:30 03/13/20 07:45 O2 Saturation 80 % (92-99) 98 % (92-99) Arterial Blood pH 7.42 (7.35-7.45) 7.45 (7.35-7.45) Arterial Blood pCO2 at Patient Temp 37 mmHg (35-46) 33 mmHg (35-46) Arterial Blood pO2 at Patient Temp 46 mmHg (65-108) 130 mmHg (65-108) Arterial Blood HCO3 23 mmol/L (21-28) 23 mmol/L (21-28) Arterial Blood Base Excess -1 mmol/L (-3-3) -1 mmol/L (-3-3) FiO2 40%+5 60 White Blood Count 11.0 x10^3/uL (4.0-11.0) Red Blood Count 4.20 x10^6/uL (4.30-5.70) Hemoglobin 11.0 g/dL (13.0-17.5) Hematocrit 33.9 % (39.0-53.0) Mean Corpuscular Volume 81 fL (79-100) Mean Corpuscular Hemoglobin 26 pg (25-35) Mean Corpuscular Hemoglobin Concent 33 g/dL (31-37) Red Cell Distribution Width 28.2 % (11.5-14.5) Platelet Count 268 x10^3/uL (140-400) Neutrophils (%) (Auto) 89 % (31-73) Lymphocytes (%) (Auto) 3 % (24-48) Monocytes (%) (Auto) 8 % (0-9) Eosinophils (%) (Auto) 0 % (0-3) Basophils (%) (Auto) 0 % (0-3) Neutrophils # (Auto) 9.7 x10^3/uL (1.8-7.7) Lymphocytes # (Auto) 0.3 x10^3/uL (1.0-4.8) Monocytes # (Auto) 0.9 x10^3/uL (0.0-1.1) Eosinophils # (Auto) 0.0 x10^3/uL (0.0-0.7) Basophils # (Auto) 0.0 x10^3/uL (0.0-0.2) Segmented Neutrophils % 92 % (35-66) Lymphocytes % 3 % (24-48) Monocytes % 5 % (0-10) Toxic Granulation Slight Platelet Estimate Adequate (ADEQUATE) Polychromasia Slight Anisocytosis Mod Sodium Level 143 mmol/L (136-145) Potassium Level 4.1 mmol/L (3.5-5.1) Chloride Level 110 mmol/L (98-107) Carbon Dioxide Level 29 mmol/L (21-32) Anion Gap 4 (6-14) Blood Urea Nitrogen 15 mg/dL (8-26) Creatinine 0.5 mg/dL (0.7-1.3) Estimated GFR (Cockcroft-Gault) 163.9 Glucose Level 103 mg/dL (70-99) Calcium Level 7.0 mg/dL (8.5-10.1) Microbiology 03/02/20 Urine Culture - Final, Complete Medications Current Medications Sodium Chloride 1,000 ml @ 1,000 mls/hr 1X ONCE IV Last administered on 03/02/20at 17:05; Start 03/02/20 at 16:45; Stop 03/02/20 at 17:44; Status DC Calcium Gluconate (Calcium Gluconate) 1,000 mg 1X ONCE IVP Last administered on 03/02/20at 18:21; Start 03/02/20 at 18:15; Stop 03/02/20 at 18:18; Status DC Iohexol (Omnipaque 300 Mg/ml) 75 ml 1X ONCE IV Last administered on 03/02/20at 18:34; Start 03/02/20 at 18:30; Stop 03/02/20 at 18:31; Status DC Pantoprazole Sodium (PROTONIX VIAL for IV PUSH) 40 mg 1X ONCE IVP Last administered on 03/02/20at 18:41; Start 03/02/20 at 18:45; Stop 03/02/20 at 18:46; Status DC Sodium Chloride 1,000 ml @ 100 mls/hr 1X ONCE IV Last administered on 03/02/20at 19:04; Start 03/02/20 at 18:45; Stop 03/03/20 at 04:44; Status DC Enoxaparin Sodium (Lovenox Per Pharmacy Prophylaxis Dosing) 1 each PRN DAILY PRN MC SEE COMMENTS; Start 03/02/20 at 20:30; Status Cancel Enoxaparin Sodium (Lovenox 40mg Syringe) 40 mg Q24H SQ Last administered on 03/02/20at 23:48; Start 03/02/20 at 21:00; Stop 03/03/20 at 08:48; Status DC Tamsulosin HCl (Flomax) 0.4 mg HS PO Last administered on 03/04/20at 21:03; Start 03/02/20 at 23:45 Sodium Chloride 1,000 ml @ 100 mls/hr Q10H IV Last administered on 03/03/20at 11:07; Start 03/03/20 at 10:00; Stop 03/03/20 at 14:58; Status DC Ondansetron HCl (Zofran) 4 mg PRN Q4HRS PRN IV NAUSEA/VOMITING Last a dministered on 03/04/20at 22:31; Start 03/03/20 at 09:45; Stop 03/05/20 at 16:15; Status DC Acetaminophen (Tylenol Supp) 650 mg PRN Q4HRS PRN MO TEMP OVER 100.4F OR MILD PAIN; Start 03/03/20 at 09:45 Polyethylene Glycol (miraLAX PACKET) 17 gm DAILY PO Last administered on 03/04/20at 09:21; Start 03/03/20 at 10:00; Stop 03/06/20 at 10:25; Status DC Bisacodyl (Dulcolax Supp) 10 mg PRN DAILY PRN MO CONSTIPATION; Start 03/03/20 at 09:45; Stop 03/06/20 at 10:25; Status DC Bisacodyl (Dulcolax Tab) 10 mg PRN DAILY PRN PO CONSTIPATION Last administered on 03/03/20at 13:47; Start 03/03/20 at 09:45; Stop 03/06/20 at 10:25; Status DC Psyllium Hydrophilic Mucilloid (Metamucil Fiber Packet) 1 pkt QHS PO Last administered on 03/04/20at 21:03; Start 03/03/20 at 21:00; Stop 03/06/20 at 10:25; Status DC Polyethylene Glycol (miraLAX PACKET) 17 gm QHS PO Last administered on 03/04/20at 21:03; Start 03/03/20 at 21:00; Stop 03/06/20 at 10:25; Status DC Docusate Sodium (Colace) 100 mg DAILY PO Last administered on 03/04/20at 09:21; Start 03/03/20 at 12:00; Stop 03/06/20 at 10:25; Status DC Amino Acids/ Glycerin/ Electrolytes 1,000 ml @ 80 mls/hr [id number] IV Last administered on 03/07/20at 02:41; Start 03/03/20 at 15:00; Stop 03/07/20 at 13:22; Status DC Furosemide (Lasix) 40 mg 1X ONCE IVP Last administered on 03/03/20at 16:48; Start 03/03/20 at 15:00; Stop 03/03/20 at 15:01; Status DC Iohexol (Omnipaque 300 Mg/ml) 75 ml 1X ONCE IV Last administered on 03/03/20at 16:33; Start 03/03/20 at 16:15; Stop 03/03/20 at 16:16; Status DC Info (CONTRAST GIVEN -- Rx MONITORING) 1 each PRN DAILY PRN MC SEE COMMENTS; Start 03/03/20 at 16:15; Stop 03/05/20 at 16:15; Status DC Bisacodyl (Dulcolax Supp) 10 mg 1X ONCE MO Last administered on 03/04/20at 12:18; Start 03/04/20 at 10:00; Stop 03/04/20 at 10:05; Status DC Cefoxitin Sodium (Mefoxin) 2 gm 1X PREOP IVP Last administered on 03/05/20at 13:09; Start 03/05/20 at 10:00; Stop 03/08/20 at 11:05; Status DC Lidocaine (Lidoderm) 1 patch DAILY TD ; Start 03/04/20 at 16:30; Status Cancel Miscellaneous (Lidoderm Patch Removal) 1 ea QHS MC ; Start 03/04/20 at 21:00; Status Cancel Ondansetron HCl (Zofran) 4 mg PRN Q6HRS PRN IVP NAUSEA/VOMITING; Start 03/05/20 at 07:15; Stop 03/05/20 at 20:00; Status DC Fentanyl Citrate (Fentanyl 2ml Vial) 25 mcg PRN Q5MIN PRN IVP MILD PAIN 1-3; Start 03/05/20 at 07:15; Stop 03/05/20 at 20:00; Status DC Fentanyl Citrate (Fentanyl 2ml Vial) 50 mcg PRN Q5MIN PRN IVP MODERATE TO SEVERE PAIN; Start 03/05/20 at 07:15; Stop 03/05/20 at 20:00; Status DC Morphine Sulfate (Morphine Sulfate) 1 mg PRN Q10MIN PRN IVP SEVERE PAIN 7-10; Start 03/05/20 at 07:15; Stop 03/05/20 at 20:00; Status DC Ringer's Solution 1,000 ml @ 30 mls/hr Q24H IV Last administered on 03/05/20at 09:59; Start 03/05/20 at 07:05; Stop 03/05/20 at 19:04; Status DC Lidocaine HCl (Xylocaine-Mpf 1% 2ml Vial) 2 ml 1X PRN PRN ID IV START; Start 03/05/20 at 07:15; Stop 03/05/20 at 20:00; Status DC Hydromorphone HCl (Dilaudid) 0.5 mg PRN Q10MIN PRN IVP SEV PAIN, Second choice; Start 03/05/20 at 07:15; Stop 03/05/20 at 20:00; Status DC Prochlorperazine Edisylate (Compazine) 5 mg PACU PRN PRN IVP NAUSEA, MRX1; Start 03/05/20 at 07:15; Stop 03/06/20 at 07:14; Status DC Pantoprazole Sodium (PROTONIX VIAL for IV PUSH) 40 mg DAILYAC IVP Last administ ered on 03/13/20at 08:25; Start 03/05/20 at 10:30 Propofol (Diprivan) 200 mg STK-MED ONCE IV ; Start 03/05/20 at 10:23; Stop 03/05 at 10:23; Status DC Lidocaine HCl (Lidocaine Pf 2% Vial) 5 ml STK-MED ONCE .ROUTE ; Start 03/05/20 at 10:23; Stop 03/05/20 at 10:23; Status DC Ondansetron HCl (Zofran) 4 mg STK-MED ONCE .ROUTE ; Start 03/05/20 at 10:23; Stop 03/05/20 at 10:23; Status DC Dexamethasone Sodium Phosphate (Decadron) 4 mg STK-MED ONCE .ROUTE ; Start 03/05/20 at 10:23; Stop 03/05/20 at 10:23; Status DC Succinylcholine Chloride (Anectine) 200 mg STK-MED ONCE .ROUTE ; Start 03/05/20 at 10:23; Stop 03/05/20 at 10:23; Status DC Rocuronium [place] (Zemuron) 50 mg STK-MED ONCE .ROUTE ; Start 03/05/20 at 10:24; Stop 03/05/20 at 10:24; Status DC Fentanyl Citrate (Fentanyl 2ml Vial) 100 mcg STK-MED ONCE .ROUTE ; Start 03/05/20 at 10:24; Stop 03/05/20 at 10:24; Status DC Iohexol (Omnipaque 300 Mg/ml) 50 ml STK-MED ONCE .ROUTE Last administered on 03/05/20at 11:43; Start 03/05/20 at 10:41; Stop 03/05/20 at 10:41; Status DC Bupivacaine HCl/ Epinephrine Bitart (Sensorcain-Epi 0.5%-1:[id number] Mpf) 30 ml STK-MED ONCE .ROUTE ; Start 03/05/20 at 10:42; Stop 03/05/20 at 10:42; Status DC Phenylephrine HCl (PHENYLEPHRINE in 0.9% NACL PF) 1 mg STK-MED ONCE IV ; Start 03/05/20 at 12:13; Stop 03/05/20 at 12:14; Status DC Ephedrine Sulfate (ePHEDrine PF IN SALINE SYRINGE) 50 mg STK-MED ONCE IV ; Start 03/05/20 at 12:13; Stop 03/05/20 at 12:14; Status DC Phenylephrine HCl (Devin-Synephrine Inj) 10 mg STK-MED ONCE .ROUTE ; Start 03/05/20 at 12:15; Stop 03/05/20 at 12:15; Status DC Rocuronium [place] (Zemuron) 50 mg STK-MED ONCE .ROUTE ; Start 03/05/20 at 12:27; Stop 03/05/20 at 12:27; Status DC Cefoxitin Sodium (Mefoxin) 1 gm STK-MED ONCE IVP ; Start 03/05/20 at 12:57; St op 03/05/20 at 12:57; Status DC Albumin Human 500 ml @ As Directed STK-MED ONCE IV ; Start 03/05/20 at 13:08; Stop 03/05/20 at 13:08; Status DC Albumin Human 500 ml @ As Directed STK-MED ONCE IV ; Start 03/05/20 at 13:13; Stop 03/05/20 at 13:14; Status DC Phenylephrine HCl (Devin-Synephrine Inj) 10 mg STK-MED ONCE .ROUTE ; Start 03/05/20 at 13:35; Stop 03/05/20 at 13:35; Status DC Phenylephrine HCl (Devin-Synephrine Inj) 10 mg STK-MED ONCE .ROUTE ; Start 03/05/20 at 13:48; Stop 03/05/20 at 13:49; Status DC Sevoflurane (Ultane) 90 ml STK-MED ONCE IH ; Start 03/05/20 at 14:30; Stop 03/05/20 at 14:30; Status DC Phenylephrine HCl (Devin-Synephrine Inj) 10 mg STK-MED ONCE .ROUTE ; Start 03/05/20 at 14:35; Stop 03/05/20 at 14:36; Status DC Midazolam HCl 100 mg/Sodium Chloride 100 ml @ 1 mls/hr CONT PRN IV SEE I/O RECORD Last administered on 03/13/20at 08:16; Start 03/05/20 at 15:15 Fentanyl Citrate 30 ml @ 2.5 mls/hr CONT PRN PRN IV PER PROTOCOL Last administered on 03/13/20at 08:19; Start 03/05/20 at 15:15 Naloxone HCl (Narcan) 0.4 mg PRN Q2MIN PRN IV SEE INSTRUCTIONS; Start 03/05/20 at 15:15; Stop 03/06/20 at 09:45; Status DC Sodium Chloride 1,000 ml @ 25 mls/hr Q24H IV ; Start 03/05/20 at 15:13; Stop 03/06/20 at 14:24; Status DC Norepinephrine Bitartrate 8 mg/ Dextrose 258 ml @ 15.287 mls/ hr CONT PRN IV PER PROTOCOL Last administered on 03/11/20at 18:15; Start 03/05/20 at 15:30 Enoxaparin Sodium (Lovenox 40mg Syringe) 40 mg Q24H SQ Last administered on 03/13/20at 08:25; Start 03/06/20 at 08:00 Sodium Chloride (Normal Saline Flush) 3 ml QSHIFT PRN IV AFTER MEDS AND BLOOD DRAWS; Start 03/05/20 at 16:15 Ringer's Solution 1,000 ml @ 100 mls/hr Q10H IV Last administered on 03/08/20at 11:19; Start 03/05/20 at 16:09; Stop 03/08/20 at 18:54; Status DC Naloxone HCl (Narcan) 0.4 mg PRN Q2MIN PRN IV SEE INSTRUCTIONS; Start 03/05/20 at 16:15 Sodium Chloride 1,000 ml @ 25 mls/hr Q24H IV ; Start 03/05/20 at 16:09; Stop 03/06/20 at 14:24; Status DC Morphine Sulfate 30 ml @ 0 mls/hr CONT PRN PRN IV PER PROTOCOL; Start 03/05/20 at 16:15; Stop 03/06/20 at 09:48; Status DC Ondansetron HCl (Zofran) 4 mg PRN Q6HRS PRN IVP NAUESA, 1ST CHOICE; Start at 16:15 Piperacillin Sod/ Tazobactam Sod 3.375 gm/Sodium Chloride 50 ml @ 100 mls/hr Q6HRS IV Last administered on 03/13/20at 06:15; Start 03/05/20 at 17:00 Ringer's Solution 1,000 ml @ 999 mls/hr 1X ONCE IV Last administered on 03/05/20at 20:59; Start 03/05/20 at 20:00; Stop 03/05/20 at 21:00; Status DC Vasopressin 20 unit/Dextrose 101 ml @ 12 mls/hr CONT PRN IV SEE I/O RECORD Last administered on 03/11/20at 06:25; Start 03/05/20 at 20:00 Ringer's Solution 1,000 ml @ 999 mls/hr 1X ONCE IV Last administered on 03/06/20at 01:07; Start 03/06/20 at 01:00; Stop 03/06/20 at 02:00; Status DC Ringer's Solution 1,000 ml @ 999 mls/hr 1X ONCE IV Last administered on 03/06/20at 05:18; Start 03/06/20 at 05:00; Stop 03/06/20 at 06:00; Status DC Ringer's Solution 1,000 ml @ 999 mls/hr 1X ONCE IV Last administered on 03/06/20at 09:54; Start 03/06/20 at 09:45; Stop 03/06/20 at 10:45; Status DC Ringer's Solution 1,000 ml @ 999 mls/hr 1X ONCE IV Last administered on 03/06/20at 13:40; Start 03/06/20 at 13:45; Stop 03/06/20 at 14:45; Status DC Ringer's Solution 1,000 ml @ 999 mls/hr 1X ONCE IV Last administered on 03/06/20at 18:43; Start 03/06/20 at 18:15; Stop 03/06/20 at 19:15; Status DC Sodium Chloride 200 ml @ 50 mls/hr 1X ONCE IV Last administered on 03/07/20at 13:49; Start 03/07/20 at 13:30; Stop 03/07/20 at 17:29; Status DC Potassium Phosphate 13.6 mmol/Sodium Chloride 254.5333 ml @ 62.5 mls/hr Q4H IV Last administered on 03/08/20at 16:52; Start 03/08/20 at 08:30; Stop 03/08/20 at 20:29; Status DC Magnesium Sulfate 50 ml @ 25 mls/hr 1X ONCE IV Last administered on 03/08/20at 08:00; Start 03/08/20 at 08:00; Stop 03/08/20 at 09:59; Status DC Sodium Chloride 300 ml @ 50 mls/hr 1X ONCE IV Last administered on 03/08/20at 08:00; Start 03/08/20 at 08:00; Stop 03/08/20 at 13:59; Status DC Info (Tpn Per Pharmacy) 1 each PRN DAILY PRN MC SEE COMMENTS Last administered on 03/13/20at 08:29; Start 03/08/20 at 11:00 Sodium Chloride 100 meq/Potassium Chloride 50 meq/ Potassium Phosphate 18 mmol/ Magnesium Sulfate 15 meq/Calcium Gluconate 10 meq/ Multivitamins 10 ml/Chromium/ Copper/Manganese/ Seleni/Zn 1 ml/ Total Parenteral Nutrition/Amino Acid s/Dextrose/ Fat Emulsion Intravenous 1,512 ml @ 63 mls/hr TPN CONT IV ; Start 03/08/20 at 22:00; Stop 03/08/20 at 11:31; Status DC Sodium Chloride 100 meq/Potassium Chloride 50 meq/ Potassium Phosphate 18 mmol/ Magnesium Sulfate 15 meq/Calcium Gluconate 10 meq/ Multivitamins 10 ml/Chromium/ Copper/Manganese/ Seleni/Zn 1 ml/ Total Parenteral Nutrition/Amino Acids/Dextrose/ Fat Emulsion Intravenous 1,920 ml @ 80 mls/hr TPN CONT IV Last administered on 03/08/20at 23:04; Start 03/08/20 at 22:00; Stop 03/09/20 at 21:59; Status DC Potassium Chloride/Water 100 ml @ 100 mls/hr 1X ONCE IV Last administered on 03/08/20at 15:51; Start 03/08/20 at 16:00; Stop 03/08/20 at 16:59; Status DC Sodium Chloride 100 meq/Potassium Chloride 50 meq/ Potassium Phosphate 18 mmol/ Magnesium Sulfate 15 meq/Calcium Gluconate 10 meq/ Multivitamins 10 ml/Chromium/ Copper/Manganese/ Seleni/Zn 1 ml/ Total Parenteral Nutrition/Amino Acids/Dextrose/ Fat Emulsion Intravenous 1,920 ml @ 80 mls/hr TPN CONT IV Last administered on 03/09/20at 22:00; Start 03/09/20 at 22:00; Stop 03/10/20 at 21:59; Status DC Sodium Phosphate 15 mmol/Sodium Chloride 255 ml @ 63.75 mls/ hr 1X ONCE IV Last administered on 03/10/20at 08:45; Start 03/10/20 at 09:00; Stop 03/10/20 at 12:59; Status DC Sodium Chloride 100 meq/Sodium Phosphate 15 mmol/ Potassium Chloride 50 meq/ Potassium Phosphate 18 mmol/ Magnesium Sulfate 15 meq/Calcium Gluconate 10 meq/ Multivitamins 10 ml/Chromium/ Copper/Manganese/ Seleni/Zn 1 ml/ Total Parenteral Nutrition/Amino Acids/Dextrose/ Fat Emulsion Intravenous 1,920 ml @ 80 mls/hr TPN CONT IV Last administered on 03/10/20at 21:41; Start 03/10/20 at 22:00; Stop 03/11/20 at 21:59; Status DC Sodium Phosphate 15 mmol/Sodium Chloride 255 ml @ 63.75 mls/ hr 1X ONCE IV Last administered on 03/11/20at 12:00; Start 03/11/20 at 10:00; Stop 03/11/20 at 13:59; Status DC Sodium Chloride 100 meq/Sodium Phosphate 15 mmol/ Potassium Chloride 50 meq/ Potassium Phosphate 18 mmol/ Magnesium Sulfate 15 meq/Calcium Gluconate 10 meq/ Multivitamins 10 ml/Chromium/ Copper/Manganese/ Seleni/Zn 1 ml/ Total Parenteral Nutrition/Amino Acids/Dextrose/ Fat Emulsion Intravenous 1,920 ml @ 80 mls/hr T PN CONT IV Last administered on 03/11/20at 21:52; Start 03/11/20 at 22:00; Stop 03/12/20 at 21:59; Status DC Dexmedetomidine HCl 400 mcg/ Sodium Chloride 100 ml @ 0 mls/hr CONT PRN IV SEE COMMENTS Last administered on 03/11/20at 10:15; Start 03/11/20 at 10:00 Sodium Chloride 500 ml @ 500 mls/hr 1X PRN PRN IV SEE COMMENTS; Start 03/11/20 at 10:00 Atropine Sulfate (ATROPINE 0.5mg SYRINGE) 0.5 mg PRN Q5MIN PRN IV SEE COMMENTS; Start 03/11/20 at 10:00 Calcium Gluconate (Calcium Gluconate) 1,000 mg 1X ONCE IVP Last administered on 03/11/20at 12:35; Start 03/11/20 at 12:30; Stop 03/11/20 at 12:31; Status DC Sodium Chloride 80 meq/Sodium Phosphate 15 mmol/ Potassium Chloride 50 meq/ Potassium Phosphate 15 mmol/ Magnesium Sulfate 15 meq/Calcium Gluconate 10 meq/ Multivitamins 10 ml/Chromium/ Copper/Manganese/ Seleni/Zn 1 ml/ Total Parenteral Nutrition/Amino Acids/Dextrose/ Fat Emulsion Intravenous 1,920 ml @ 80 mls/hr TPN CONT IV Last administered on 03/12/20at 22:06; Start 03/12/20 at 22:00; Stop 03/13/20 at 21:59 Metoprolol Tartrate (Lopressor Vial) 2.5 mg Q6HRS IVP Last administered on 03/13/20at 06:16; Start 03/12/20 at 12:00 Albuterol Sulfate (Ventolin Neb Soln) 2.5 mg 1X ONCE NEB Last administered on 03/13/20at 00:00; Start 03/13/20 at 00:00; Stop 03/13/20 at 00:01; Status DC Sodium Chloride 80 meq/Sodium Phosphate 15 mmol/ Potassium Chloride 50 meq/ Potassium Phosphate 15 mmol/ Magnesium Sulfate 15 meq/Calcium Gluconate 10 meq/ Multivitamins 10 ml/Chromium/ Copper/Manganese/ Seleni/Zn 1 ml/ Total Parenteral Nutrition/Amino Acids/Dextrose/ Fat Emulsion Intravenous 1,920 ml @ 80 mls/hr TPN CONT IV ; Start 03/13/20 at 22:00; Stop 03/14/20 at 21:59 Active Scripts Active Reported Flomax (Tamsulosin Hcl) 0.4 Mg Cap.er.24h 1 Cap PO QHS Vitals/I & O Vital Sign - Last 24 Hours 03/12/20 03/12/20 03/12/20 03/12/20 09:00 10:00 11:00 11:06 Pulse 108 120 128 Resp 20 22 24 B/P (MAP) 102/70 (81) 153/95 (114) 154/100 (118) Pulse Ox 86 97 95 95 O2 Delivery Ventilator Ventilator Ventilator Ventilator 03/12/20 03/12/20 03/12/20 03/12/20 11:10 11:36 12:00 12:00 Temp 97.0 97.0 Pulse 120 Resp 26 B/P (MAP) 150/100 (117) Pulse Ox 95 96 97 O2 Delivery Ventilator Ventilator Mechanical Ventilator 03/12/20 03/12/20 03/12/20 03/12/20 13:00 13:30 14:00 15:00 Pulse 118 99 120 Resp 22 24 23 B/P (MAP) 147/98 (114) 137/85 (102) 127/67 (87) Pulse Ox 96 92 96 98 O2 Delivery Ventilator Ventilator Ventilator Ventilator 03/12/20 03/12/20 03/12/20 03/12/20 15:37 16:00 16:00 16:30 Temp 98.0 98.0 Pulse 98 92 Resp 24 25 B/P (MAP) 112/69 (83) 113/70 (84) Pulse Ox 97 100 98 O2 Delivery Ventilator Ventilator Mechanical Ventilator Ventilator 03/12/20 03/12/20 03/12/20 03/12/20 16:56 17:00 17:01 17:23 Pulse 112 90 Resp 20 B/P (MAP) 139/82 127/82 (97) Pulse Ox 97 92 100 O2 Delivery Ventilator Ventilator Ventilator 03/12/20 03/12/20 03/12/20 03/12/20 17:31 17:55 18:10 19:00 Pulse 92 93 106 Resp 22 24 22 B/P (MAP) 124/77 (93) 116/72 (87) 144/93 (110) Pulse Ox 100 98 92 96 O2 Delivery Ventilator Ventilator Ventilator 03/12/20 03/12/20 03/12/20 03/12/20 19:50 20:00 20:00 21:00 Temp 97.7 97.7 Pulse 112 110 Resp 28 20 B/P (MAP) 121/78 (92) 106/86 (93) Pulse Ox 100 100 97 O2 Delivery Ventilator Mechanical Ventilator Ventilator Ventilator 03/12/20 03/12/20 03/12/20 03/12/20 22:00 23:00 23:35 23:40 Pulse 106 96 Resp 26 21 B/P (MAP) 115/94 (101) 141/99 (113) Pulse Ox 100 100 82 84 O2 Delivery Ventilator Ventilator Ventilator Ventilator 03/12/20 03/12/20 03/13/20 03/13/20 23:50 23:52 00:00 00:00 Temp 97.7 97.7 Pulse 81 92 Resp 18 B/P (MAP) 143/82 143/82 (102) Pulse Ox 100 94 O2 Delivery Ventilator Ventilator Mechanical Ventilator 03/13/20 03/13/20 03/13/20 03/13/20 00:30 00:57 01:00 01:30 Pulse 85 Resp 22 20 22 B/P (MAP) 83/64 (70) Pulse Ox 100 100 100 O2 Delivery Ventilator Ventilator Ventilator 03/13/20 03/13/20 03/13/20 03/13/20 02:00 03:00 03:46 04:00 Pulse 102 111 Resp 18 27 B/P (MAP) 93/64 (74) 136/87 (103) Pulse Ox 100 100 100 O2 Delivery Ventilator Ventilator Ventilator Mechanical Ventilator 03/13/20 03/13/20 03/13/20 03/13/20 04:00 05:00 06:00 06:16 Temp 97.7 97.7 Pulse 112 119 113 113 Resp 25 28 25 B/P (MAP) 157/98 (117) 148/96 (113) 147/106 (120) 147/106 Pulse Ox 99 94 97 O2 Delivery Ventilator Ventilator Ventilator 03/13/20 03/13/20 07:29 08:19 Pulse Ox 100 100 O2 Delivery Ventilator Intake and Output 03/12/20 03/12/20 03/13/20 15:00 23:00 07:00 Intake Total 0 ml 1254 ml 1169 ml Output Total 395 ml 515 ml 640 ml Balance -395 ml 739 ml 529 ml Nutrition Consultation Dietary Evaluation: Recommendations by RD: Dietary education by RD, Increase Calorie Intake, PPN/TPN Comments: Continue w/TPN as ordered: 95 g AA, 225 g dextrose, 20 g lipids When appropriate, recommend TFs per following: VitalAF@10 ml/hr, increase 10 ml q8 hrs as tolerated to goal rate 55 ml/hr w/125 ml water flushes q4 hrs. When TFs infusing and tolerated at 75% goal rate (40 ml/hr) recommend stopping TPN to avoid overfeeding Expected Outcomes/Goals: New goal 03/08: TPN to meet >65% est needs while intubated - met, goal ongoing Malnutrition Findings: Food and Nutrition Intake (Mod: <75% est energy req 7days Weight Status: Appropriate Justicifation of Admission Dx: Justifications for Admission: Justification of Admission Dx: Yes MARLYS ENCARNACION MD Mar 13, 2020 08:44
--- NOTE | 2020-03-13 09:08 | PDOC ---
SUBJECTIVE ROS Remains Intubated ,On MV OBJECTIVE Vital Signs Vital Signs Date Time Temp Pulse Resp B/P (MAP) Pulse Ox O2 Delivery O2 Flow Rate FiO2 03/13/20 08:19 100 03/13/20 07:29 Ventilator 03/13/20 06:16 113 147/106 03/13/20 06:00 25 03/13/20 04:00 97.7 97.7 I & 0 Intake and Output 03/13/20 07:00 Intake Total 2423 ml Output Total 1550 ml Balance 873 ml Intake Oral 0 ml IV Total 2423 ml Output Urine Total 975 ml Gastric Drainage Total 0 ml Drainage Total 575 ml PHYSICAL EXAM Physical Exam General Appearance: no apparent distress HEEN Intubated Skin: warm Respiratory: decreased at bases Heart: S1S2 Abdomen: s/p Surgery Genitourinary: Booth + Neurology: Intubated Ext- 3+ LE edema (sever Hypoalbuminemia) DIAGNOSIS/ASSESSMENT Assessment & Plan Hyponatremia -resolved, Sodium normal GEORGES- Cr Normal- may not be accurate 2/2 severe malnutrition but stable Supportive care , avoid nephrotoxins HypoCalcemia- Albumin 0.8, iCa low,- replaced, Improved Replace as needed HyPhos- Replace as indicated 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 S/P Open right colon resection, partial resection of duodenum, placement of duodenostomy tube, cholecystectomy with cholangiogram, ghost ileostomy Anemia- s/p PRBC Severe protein calorie malnutrition- On TPN HX of prostate cancer BPH COMMENT/RELEVANT DATA Meds Current Medications Medications (Trade) Dose Ordered Sig/Faisal Start Time Stop Time Status Last Admin Dose Admin Acetaminophen (Tylenol Supp) 650 mg PRN Q4HRS PRN 03/03/20 09:45 Albumin Human 500 ml @ As Directed STK-MED ONCE 03/05/20 13:13 03/05/20 13:14 DC Albuterol Sulfate (Ventolin Neb Soln) 2.5 mg 1X ONCE 03/13/20 00:00 03/13/20 00:01 DC 03/13/20 00:00 2.5 MG Amino Acids/ Glycerin/ Electrolytes 1,000 ml @ 80 mls/hr [id number] 03/03/20 15:00 03/07/20 13:22 DC 03/07/20 02:41 80 MLS/HR Atropine Sulfate (ATROPINE 0.5mg SYRINGE) 0.5 mg PRN Q5MIN PRN 03/11/20 10:00 Bisacodyl (Dulcolax Supp) 10 mg 1X ONCE 03/04/20 10:00 03/04/20 10:05 DC 03/04/20 12:18 10 MG Bisacodyl (Dulcolax Tab) 10 mg PRN DAILY PRN 03/03/20 09:45 03/06/20 10:25 DC 03/03/20 13:47 10 MG Bupivacaine HCl/ Epinephrine Bitart (Sensorcain-Epi 0.5%-1:989220 Mpf) 30 ml STK-MED ONCE 03/05/20 10:42 03/05/20 10:42 DC Calcium Gluconate (Calcium Gluconate) 1,000 mg 1X ONCE 03/11/20 12:30 03/11/20 12:31 DC 03/11/20 12:35 1,000 MG Cefoxitin Sodium (Mefoxin) 1 gm STK-MED ONCE 03/05/20 12:57 03/05/20 12:57 DC Dexamethasone Sodium Phosphate (Decadron) 4 mg STK-MED ONCE 03/05/20 10:23 03/05/20 10:23 DC Dexmedetomidine HCl 400 mcg/ Sodium Chloride 100 ml @ 0 mls/hr CONT PRN 03/11/20 10:00 03/11/20 10:15 3.8 MLS/HR Docusate Sodium (Colace) 100 mg DAILY 03/03/20 12:00 03/06/20 10:25 DC 03/04/20 09:21 100 MG Enoxaparin Sodium (Lovenox 40mg Syringe) 40 mg Q24H 03/06/20 08:00 03/13/20 08:25 40 MG Enoxaparin Sodium (Lovenox Per Pharmacy Prophylaxis Dosing) 1 each PRN DAILY PRN 03/02/20 20:30 Cancel Ephedrine Sulfate (ePHEDrine PF IN SALINE SYRINGE) 50 mg STK-MED ONCE 03/05/20 12:13 03/05/20 12:14 DC Fentanyl Citrate 30 ml @ 2.5 mls/hr CONT PRN PRN 03/05/20 15:15 03/13/20 08:19 2.5 MLS/HR Fentanyl Citrate (Fentanyl 2ml Vial) 100 mcg STK-MED ONCE 03/05/20 10:24 03/05/20 10:24 DC Furosemide (Lasix) 40 mg 1X ONCE 03/03/20 15:00 03/03/20 15:01 DC 03/03/20 16:48 40 MG Hydromorphone HCl (Dilaudid) 0.5 mg PRN Q10MIN PRN 03/05/20 07:15 03/05/20 20:00 DC Info (CONTRAST GIVEN -- Rx MONITORING) 1 each PRN DAILY PRN 03/03/20 16:15 03/05/20 16:15 DC Info (Tpn Per Pharmacy) 1 each PRN DAILY PRN 03/08/20 11:00 03/13/20 08:29 1 EACH Iohexol (Omnipaque 300 Mg/ml) 50 ml STK-MED ONCE 03/05/20 10:41 03/05/20 10:41 DC 03/05/20 11:43 27 ML Lidocaine (Lidoderm) 1 patch DAILY 03/04/20 16:30 Cancel Lidocaine HCl (Lidocaine Pf 2% Vial) 5 ml STK-MED ONCE 03/05/20 10:23 03/05/20 10:23 DC Lidocaine HCl (Xylocaine-Mpf 1% 2ml Vial) 2 ml 1X PRN PRN 03/05/20 07:15 03/05/20 20:00 DC Magnesium Sulfate 50 ml @ 25 mls/hr 1X ONCE 03/08/20 08:00 03/08/20 09:59 DC 03/08/20 08:00 25 MLS/HR Metoprolol Tartrate (Lopressor Vial) 2.5 mg Q6HRS 03/12/20 12:00 03/13/20 06:16 2.5 MG Midazolam HCl 100 mg/Sodium Chloride 100 ml @ 1 mls/hr CONT PRN 03/05/20 15:15 03/13/20 08:16 2.5 MLS/HR Miscellaneous (Lidoderm Patch Removal) 1 ea QHS 03/04/20 21:00 Cancel Morphine Sulfate 30 ml @ 0 mls/hr CONT PRN PRN 03/05/20 16:15 03/06/20 09:48 DC Morphine Sulfate (Morphine Sulfate) 1 mg PRN Q10MIN PRN 03/05/20 07:15 03/05/20 20:00 DC Naloxone HCl (Narcan) 0.4 mg PRN Q2MIN PRN 03/05/20 16:15 Norepinephrine Bitartrate 8 mg/ Dextrose 258 ml @ 15.287 mls/ hr CONT PRN 03/05/20 15:30 03/11/20 18:15 15.287 MLS/HR Ondansetron HCl (Zofran) 4 mg PRN Q6HRS PRN 03/05/20 16:15 Pantoprazole Sodium (PROTONIX VIAL for IV PUSH) 40 mg DAILYAC 03/05/20 10:30 03/13/20 08:25 40 MG Phenylephrine HCl (Devin-Synephrine Inj) 10 mg STK-MED ONCE 03/05/20 14:35 03/05/20 14:36 DC Phenylephrine HCl (PHENYLEPHRINE in 0.9% NACL PF) 1 mg STK-MED ONCE 03/05/20 12:13 03/05/20 12:14 DC Piperacillin Sod/ Tazobactam Sod 3.375 gm/Sodium Chloride 50 ml @ 100 mls/hr Q6HRS 03/05/20 17:00 03/13/20 06:15 100 MLS/HR Polyethylene Glycol (miraLAX PACKET) 17 gm QHS 03/03/20 21:00 03/06/20 10:25 DC 03/04/20 21:03 17 GM Potassium Chloride/Water 100 ml @ 100 mls/hr 1X ONCE 03/08/20 16:00 03/08/20 16:59 DC 03/08/20 15:51 100 MLS/HR Potassium Phosphate 13.6 mmol/Sodium Chloride 254.5333 ml @ 62.5 mls/hr Q4H 03/08/20 08:30 03/08/20 20:29 DC 03/08/20 16:52 62.5 MLS/HR Prochlorperazine Edisylate (Compazine) 5 mg PACU PRN PRN 03/05/20 07:15 03/06/20 07:14 DC Propofol (Diprivan) 200 mg STK-MED ONCE 03/05/20 10:23 03/05/20 10:23 DC Psyllium Hydrophilic Mucilloid (Metamucil Fiber Packet) 1 pkt QHS 03/03/20 21:00 03/06/20 10:25 DC 03/04/20 21:03 1 PKT Ringer's Solution 1,000 ml @ 999 mls/hr 1X ONCE 03/06/20 18:15 03/06/20 19:15 DC 03/06/20 18:43 999 MLS/HR Rocuronium [place] (Zemuron) 50 mg STK-MED ONCE 03/05/20 12:27 03/05/20 12:27 DC Sevoflurane (Ultane) 90 ml STK-MED ONCE 03/05/20 14:30 03/05/20 14:30 DC Sodium Chloride (Normal Saline Flush) 3 ml QSHIFT PRN 03/05/20 16:15 Sodium Chloride 80 meq/Sodium Phosphate 15 mmol/ Potassium Chloride 50 meq/ Potassium Phosphate 15 mmol/ Magnesium Sulfate 15 meq/Calcium Gluconate 10 meq/ Multivitamins 10 ml/Chromium/ Copper/Manganese/ Seleni/Zn 1 ml/ Total Parenteral Nutrition/Amino Acids/Dextrose/ Fat Emulsion Intravenous 1,920 ml @ 80 mls/hr TPN CONT 03/13/20 22:00 03/14/20 21:59 Sodium Chloride 100 meq/Potassium Chloride 50 meq/ Potassium Phosphate 18 mmol/ Magnesium Sulfate 15 meq/Calcium Gluconate 10 meq/ Multivitamins 10 ml/Chromium/ Copper/Manganese/ Seleni/Zn 1 ml/ Total Parenteral Nutrition/Amino Acids/Dextrose/ Fat Emulsion Intravenous 1,920 ml @ 80 mls/hr TPN CONT 03/09/20 22:00 03/10/20 21:59 DC 03/09/20 22:00 80 MLS/HR Sodium Chloride 100 meq/Sodium Phosphate 15 mmol/ Potassium Chloride 50 meq/ Potassium Phosphate 18 mmol/ Magnesium Sulfate 15 meq/Calcium Gluconate 10 meq/ Multivitamins 10 ml/Chromium/ Copper/Manganese/ Seleni/Zn 1 ml/ Total Parenteral Nutrition/Amino Acids/Dextrose/ Fat Emulsion Intravenous 1,920 ml @ 80 mls/hr TPN CONT 03/11/20 22:00 03/12/20 21:59 DC 03/11/20 21:52 80 MLS/HR Sodium Phosphate 15 mmol/Sodium Chloride 255 ml @ 63.75 mls/ hr 1X ONCE 03/11/20 10:00 03/11/20 13:59 DC 03/11/20 12:00 63.75 MLS/HR Succinylcholine Chloride (Anectine) 200 mg STK-MED ONCE 03/05/20 10:23 03/05/20 10:23 DC Tamsulosin HCl (Flomax) 0.4 mg HS 03/02/20 23:45 03/04/20 21:03 0.4 MG Vasopressin 20 unit/Dextrose 101 ml @ 12 mls/hr CONT PRN 03/05/20 20:00 03/11/20 06:25 12 MLS/HR Lab Laboratory Tests Test 03/12/20 16:09 03/13/20 05:30 03/13/20 07:45 O2 Saturation 80 % (92-99) 98 % (92-99) Arterial Blood pH 7.42 (7.35-7.45) 7.45 (7.35-7.45) Arterial Blood pCO2 at Patient Temp 37 mmHg (35-46) 33 mmHg (35-46) Arterial Blood pO2 at Patient Temp 46 mmHg (65-108) 130 mmHg (65-108) Arterial Blood HCO3 23 mmol/L (21-28) 23 mmol/L (21-28) Arterial Blood Base Excess -1 mmol/L (-3-3) -1 mmol/L (-3-3) FiO2 40%+5 60 White Blood Count 11.0 x10^3/uL (4.0-11.0) Red Blood Count 4.20 x10^6/uL (4.30-5.70) Hemoglobin 11.0 g/dL (13.0-17.5) Hematocrit 33.9 % (39.0-53.0) Mean Corpuscular Volume 81 fL (79-100) Mean Corpuscular Hemoglobin 26 pg (25-35) Mean Corpuscular Hemoglobin Concent 33 g/dL (31-37) Red Cell Distribution Width 28.2 % (11.5-14.5) Platelet Count 268 x10^3/uL (140-400) Neutrophils (%) (Auto) 89 % (31-73) Lymphocytes (%) (Auto) 3 % (24-48) Monocytes (%) (Auto) 8 % (0-9) Eosinophils (%) (Auto) 0 % (0-3) Basophils (%) (Auto) 0 % (0-3) Neutrophils # (Auto) 9.7 x10^3/uL (1.8-7.7) Lymphocytes # (Auto) 0.3 x10^3/uL (1.0-4.8) Monocytes # (Auto) 0.9 x10^3/uL (0.0-1.1) Eosinophils # (Auto) 0.0 x10^3/uL (0.0-0.7) Basophils # (Auto) 0.0 x10^3/uL (0.0-0.2) Segmented Neutrophils % 92 % (35-66) Lymphocytes % 3 % (24-48) Monocytes % 5 % (0-10) Toxic Granulation Slight Platelet Estimate Adequate (ADEQUATE) Polychromasia Slight Anisocytosis Mod Sodium Level 143 mmol/L (136-145) Potassium Level 4.1 mmol/L (3.5-5.1) Chloride Level 110 mmol/L (98-107) Carbon Dioxide Level 29 mmol/L (21-32) Anion Gap 4 (6-14) Blood Urea Nitrogen 15 mg/dL (8-26) Creatinine 0.5 mg/dL (0.7-1.3) Estimated GFR (Cockcroft-Gault) 163.9 Glucose Level 103 mg/dL (70-99) Calcium Level 7.0 mg/dL (8.5-10.1) Results All relevant outside records, renal labs, imaging studies, telemetry/EKG's were reviewed. Justicifation of Admission Dx: Justifications for Admission: Justification of Admission Dx: Yes SUZANNE KATHLEEN MD Mar 13, 2020 09:08
--- NOTE | 2020-03-13 09:48 | PDOC ---
SURGICAL PROGRESS NOTE Subjective Pt intubated and sedated, min NGT output, no stools reported Vital Signs Vital Signs Date Time Temp Pulse Resp B/P (MAP) Pulse Ox O2 Delivery O2 Flow Rate FiO2 03/13/20 09:00 92 24 86/58 (67) 86 Ventilator 03/13/20 08:00 98.7 98.7 I&O Intake and Output 03/13/20 07:00 Intake Total 2423 ml Output Total 1600 ml Balance 823 ml Intake Oral 0 ml IV Total 2423 ml Output Urine Total 1025 ml Gastric Drainage Total 0 ml Drainage Total 575 ml PATIENT HAS A DOZIER: Yes (accurate i and os) General: No acute distress Abdomen: Soft Labs Laboratory Tests Test 03/12/20 04:30 03/12/20 08:00 03/12/20 16:09 03/13/20 05:30 White Blood Count 9.0 x10^3/uL (4.0-11.0) 11.0 x10^3/uL (4.0-11.0) Red Blood Count 3.87 x10^6/uL (4.30-5.70) 4.20 x10^6/uL (4.30-5.70) Hemoglobin 9.9 g/dL (13.0-17.5) 11.0 g/dL (13.0-17.5) Hematocrit 30.9 % (39.0-53.0) 33.9 % (39.0-53.0) Mean Corpuscular Volume 80 fL (79-100) 81 fL (79-100) Mean Corpuscular Hemoglobin 26 pg (25-35) 26 pg (25-35) Mean Corpuscular Hemoglobin Concent 32 g/dL (31-37) 33 g/dL (31-37) Red Cell Distribution Width 27.1 % (11.5-14.5) 28.2 % (11.5-14.5) Platelet Count 254 x10^3/uL (140-400) 268 x10^3/uL (140-400) Neutrophils (%) (Auto) 87 % (31-73) 89 % (31-73) Lymphocytes (%) (Auto) 4 % (24-48) 3 % (24-48) Monocytes (%) (Auto) 9 % (0-9) 8 % (0-9) Eosinophils (%) (Auto) 0 % (0-3) 0 % (0-3) Basophils (%) (Auto) 0 % (0-3) 0 % (0-3) Neutrophils # (Auto) 7.7 x10^3/uL (1.8-7.7) 9.7 x10^3/uL (1.8-7.7) Lymphocytes # (Auto) 0.3 x10^3/uL (1.0-4.8) 0.3 x10^3/uL (1.0-4.8) Monocytes # (Auto) 0.8 x10^3/uL (0.0-1.1) 0.9 x10^3/uL (0.0-1.1) Eosinophils # (Auto) 0.0 x10^3/uL (0.0-0.7) 0.0 x10^3/uL (0.0-0.7) Basophils # (Auto) 0.0 x10^3/uL (0.0-0.2) 0.0 x10^3/uL (0.0-0.2) Sodium Level 144 mmol/L (136-145) 143 mmol/L (136-145) Potassium Level 4.0 mmol/L (3.5-5.1) 4.1 mmol/L (3.5-5.1) Chloride Level 111 mmol/L (98-107) 110 mmol/L (98-107) Carbon Dioxide Level 29 mmol/L (21-32) 29 mmol/L (21-32) Anion Gap 4 (6-14) 4 (6-14) Blood Urea Nitrogen 11 mg/dL (8-26) 15 mg/dL (8-26) Creatinine 0.6 mg/dL (0.7-1.3) 0.5 mg/dL (0.7-1.3) Estimated GFR (Cockcroft-Gault) 132.8 163.9 BUN/Creatinine Ratio 18 (6-20) Glucose Level 101 mg/dL (70-99) 103 mg/dL (70-99) Calcium Level 6.9 mg/dL (8.5-10.1) 7.0 mg/dL (8.5-10.1) Phosphorus Level 3.4 mg/dL (2.6-4.7) Magnesium Level 2.2 mg/dL (1.8-2.4) Total Bilirubin 0.2 mg/dL (0.2-1.0) Aspartate Amino Transf (AST/SGOT) 16 U/L (15-37) Alanine Aminotransferase (ALT/SGPT) 15 U/L (16-63) Alkaline Phosphatase 779 U/L (46-116) Total Protein 4.2 g/dL (6.4-8.2) Albumin 0.8 g/dL (3.4-5.0) Albumin/Globulin Ratio 0.2 (1.0-1.7) Thyroid Stimulating Hormone (TSH) 1.438 uIU/mL (0.358-3.74) O2 Saturation 94 % (92-99) 80 % (92-99) Arterial Blood pH 7.45 (7.35-7.45) 7.42 (7.35-7.45) Arterial Blood pCO2 at Patient Temp 39 mmHg (35-46) 37 mmHg (35-46) Arterial Blood pO2 at Patient Temp 71 mmHg (65-108) 46 mmHg (65-108) Arterial Blood HCO3 26 mmol/L (21-28) 23 mmol/L (21-28) Arterial Blood Base Excess 2 mmol/L (-3-3) -1 mmol/L (-3-3) FiO2 40%+5 40%+5 Segmented Neutrophils % 92 % (35-66) Lymphocytes % 3 % (24-48) Monocytes % 5 % (0-10) Toxic Granulation Slight Platelet Estimate Adequate (ADEQUATE) Polychromasia Slight Anisocytosis Mod Test 03/13/20 07:45 O2 Saturation 98 % (92-99) Arterial Blood pH 7.45 (7.35-7.45) Arterial Blood pCO2 at Patient Temp 33 mmHg (35-46) Arterial Blood pO2 at Patient Temp 130 mmHg (65-108) Arterial Blood HCO3 23 mmol/L (21-28) Arterial Blood Base Excess -1 mmol/L (-3-3) FiO2 60 Laboratory Tests Test 03/12/20 16:09 03/13/20 05:30 03/13/20 07:45 O2 Saturation 80 % (92-99) 98 % (92-99) Arterial Blood pH 7.42 (7.35-7.45) 7.45 (7.35-7.45) Arterial Blood pCO2 at Patient Temp 37 mmHg (35-46) 33 mmHg (35-46) Arterial Blood pO2 at Patient Temp 46 mmHg (65-108) 130 mmHg (65-108) Arterial Blood HCO3 23 mmol/L (21-28) 23 mmol/L (21-28) Arterial Blood Base Excess -1 mmol/L (-3-3) -1 mmol/L (-3-3) FiO2 40%+5 60 White Blood Count 11.0 x10^3/uL (4.0-11.0) Red Blood Count 4.20 x10^6/uL (4.30-5.70) Hemoglobin 11.0 g/dL (13.0-17.5) Hematocrit 33.9 % (39.0-53.0) Mean Corpuscular Volume 81 fL (79-100) Mean Corpuscular Hemoglobin 26 pg (25-35) Mean Corpuscular Hemoglobin Concent 33 g/dL (31-37) Red Cell Distribution Width 28.2 % (11.5-14.5) Platelet Count 268 x10^3/uL (140-400) Neutrophils (%) (Auto) 89 % (31-73) Lymphocytes (%) (Auto) 3 % (24-48) Monocytes (%) (Auto) 8 % (0-9) Eosinophils (%) (Auto) 0 % (0-3) Basophils (%) (Auto) 0 % (0-3) Neutrophils # (Auto) 9.7 x10^3/uL (1.8-7.7) Lymphocytes # (Auto) 0.3 x10^3/uL (1.0-4.8) Monocytes # (Auto) 0.9 x10^3/uL (0.0-1.1) Eosinophils # (Auto) 0.0 x10^3/uL (0.0-0.7) Basophils # (Auto) 0.0 x10^3/uL (0.0-0.2) Segmented Neutrophils % 92 % (35-66) Lymphocytes % 3 % (24-48) Monocytes % 5 % (0-10) Toxic Granulation Slight Platelet Estimate Adequate (ADEQUATE) Polychromasia Slight Anisocytosis Mod Sodium Level 143 mmol/L (136-145) Potassium Level 4.1 mmol/L (3.5-5.1) Chloride Level 110 mmol/L (98-107) Carbon Dioxide Level 29 mmol/L (21-32) Anion Gap 4 (6-14) Blood Urea Nitrogen 15 mg/dL (8-26) Creatinine 0.5 mg/dL (0.7-1.3) Estimated GFR (Cockcroft-Gault) 163.9 Glucose Level 103 mg/dL (70-99) Calcium Level 7.0 mg/dL (8.5-10.1) Problem List Problems Medical Problems: (1) Anemia Status: Acute (2) Colonic mass Status: Acute (3) Fatigue Status: Acute (4) Hypocalcemia Status: Acute (5) Nausea & vomiting Status: Acute (6) SBO (small bowel obstruction) Status: Acute Assessment/Plan s/p right colon cont supportive care path reviewed, poor candidate for chemo, but will ask oncology to evaluate. Justicifation of Admission Dx: Justifications for Admission: Justification of Admission Dx: Yes MEGAN WILLIAMSON MD Mar 13, 2020 09:48
--- NOTE | 2020-03-13 10:25 | NUR ---
SS following up with discharge planning. SS reviewed pt chart and discussed with pt RN. Pt remains on the vent at this time. Pt TPN and IV Zosyn. Pt off vasopressin. Pt accepted at [facility] for LTACH. Oncology consulted. SS will continue to follow for discharge planning.
--- NOTE | 2020-03-13 11:24 | PDOC ---
Objective: Objective: Note plans for oncology to see. On TPN, no stools. Vital Signs: Vital Signs Date Time Temp Pulse Resp B/P (MAP) Pulse Ox O2 Delivery O2 Flow Rate FiO2 03/13/20 10:08 93 26 125/100 (108) 99 Ventilator 03/13/20 08:00 98.7 98.7 Labs: Laboratory Tests Test 03/12/20 16:09 03/13/20 05:30 03/13/20 07:45 O2 Saturation 80 % 98 % Arterial Blood pH 7.42 7.45 Arterial Blood pCO2 at Patient Temp 37 mmHg 33 mmHg Arterial Blood pO2 at Patient Temp 46 mmHg 130 mmHg Arterial Blood HCO3 23 mmol/L 23 mmol/L Arterial Blood Base Excess -1 mmol/L -1 mmol/L FiO2 40%+5 60 White Blood Count 11.0 x10^3/uL Red Blood Count 4.20 x10^6/uL Hemoglobin 11.0 g/dL Hematocrit 33.9 % Mean Corpuscular Volume 81 fL Mean Corpuscular Hemoglobin 26 pg Mean Corpuscular Hemoglobin Concent 33 g/dL Red Cell Distribution Width 28.2 % Platelet Count 268 x10^3/uL Neutrophils (%) (Auto) 89 % Lymphocytes (%) (Auto) 3 % Monocytes (%) (Auto) 8 % Eosinophils (%) (Auto) 0 % Basophils (%) (Auto) 0 % Neutrophils # (Auto) 9.7 x10^3/uL Lymphocytes # (Auto) 0.3 x10^3/uL Monocytes # (Auto) 0.9 x10^3/uL Eosinophils # (Auto) 0.0 x10^3/uL Basophils # (Auto) 0.0 x10^3/uL Segmented Neutrophils % 92 % Lymphocytes % 3 % Monocytes % 5 % Toxic Granulation Slight Platelet Estimate Adequate Polychromasia Slight Anisocytosis Mod Sodium Level 143 mmol/L Potassium Level 4.1 mmol/L Chloride Level 110 mmol/L Carbon Dioxide Level 29 mmol/L Anion Gap 4 Blood Urea Nitrogen 15 mg/dL Creatinine 0.5 mg/dL Estimated GFR (Cockcroft-Gault) 163.9 Glucose Level 103 mg/dL Calcium Level 7.0 mg/dL PE: GEN: intubated, mittens LUNGS: vent/clear HEART: RRR ABD: soft NEURO/PSYCH: sedated A/P: Colon cancer s/p right colon resection, partial resection of duodenum, duodenostomy tube, cholecystectomy, ghost ileostomy Resp failure -- Continue support. Justicifation of Admission Dx: Justifications for Admission: Justification of Admission Dx: Yes LONG RIOS Mar 13, 2020 11:24
[2020-03-13] MEDS: IPRATRPIUM/ALBUTEROL 0.5/2.5MG 3 ML NEBU. NEB SCH ×3 (11:51→20:42)
--- NOTE | 2020-03-13 13:46 | PDOC ---
DELANO MORAES ROUTE SERVICE REPRESENTATIVE 03/13/20 1346: CARDIO Progress Notes Date and Time Date of Service 03/13/20 Time of Evaluation 1110 Subjective Subjective: Other (intubated sedated) Vitals Vitals Vital Signs Date Time Temp Pulse Resp B/P (MAP) Pulse Ox O2 Delivery O2 Flow Rate FiO2 03/13/20 13:09 114 163/103 03/13/20 12:16 94 03/13/20 11:52 Ventilator 03/13/20 10:08 26 03/13/20 08:00 98.7 98.7 Weight Weight [ ] Input and Output Intake and Output Intake and Output 03/13/20 06:59 Intake Total 2423 ml Output Total 1550 ml Balance 873 ml Intake Oral 0 ml IV Total 2423 ml Output Urine Total 975 ml Gastric Drainage Total 0 ml Drainage Total 575 ml Laboratory Labs Laboratory Tests Test 03/12/20 16:09 03/13/20 05:30 03/13/20 07:45 O2 Saturation 80 % (92-99) 98 % (92-99) Arterial Blood pH 7.42 (7.35-7.45) 7.45 (7.35-7.45) Arterial Blood pCO2 at Patient Temp 37 mmHg (35-46) 33 mmHg (35-46) Arterial Blood pO2 at Patient Temp 46 mmHg (65-108) 130 mmHg (65-108) Arterial Blood HCO3 23 mmol/L (21-28) 23 mmol/L (21-28) Arterial Blood Base Excess -1 mmol/L (-3-3) -1 mmol/L (-3-3) FiO2 40%+5 60 White Blood Count 11.0 x10^3/uL (4.0-11.0) Red Blood Count 4.20 x10^6/uL (4.30-5.70) Hemoglobin 11.0 g/dL (13.0-17.5) Hematocrit 33.9 % (39.0-53.0) Mean Corpuscular Volume 81 fL (79-100) Mean Corpuscular Hemoglobin 26 pg (25-35) Mean Corpuscular Hemoglobin Concent 33 g/dL (31-37) Red Cell Distribution Width 28.2 % (11.5-14.5) Platelet Count 268 x10^3/uL (140-400) Neutrophils (%) (Auto) 89 % (31-73) Lymphocytes (%) (Auto) 3 % (24-48) Monocytes (%) (Auto) 8 % (0-9) Eosinophils (%) (Auto) 0 % (0-3) Basophils (%) (Auto) 0 % (0-3) Neutrophils # (Auto) 9.7 x10^3/uL (1.8-7.7) Lymphocytes # (Auto) 0.3 x10^3/uL (1.0-4.8) Monocytes # (Auto) 0.9 x10^3/uL (0.0-1.1) Eosinophils # (Auto) 0.0 x10^3/uL (0.0-0.7) Basophils # (Auto) 0.0 x10^3/uL (0.0-0.2) Segmented Neutrophils % 92 % (35-66) Lymphocytes % 3 % (24-48) Monocytes % 5 % (0-10) Toxic Granulation Slight Platelet Estimate Adequate (ADEQUATE) Polychromasia Slight Anisocytosis Mod Sodium Level 143 mmol/L (136-145) Potassium Level 4.1 mmol/L (3.5-5.1) Chloride Level 110 mmol/L (98-107) Carbon Dioxide Level 29 mmol/L (21-32) Anion Gap 4 (6-14) Blood Urea Nitrogen 15 mg/dL (8-26) Creatinine 0.5 mg/dL (0.7-1.3) Estimated GFR (Cockcroft-Gault) 163.9 Glucose Level 103 mg/dL (70-99) Calcium Level 7.0 mg/dL (8.5-10.1) Microbiology Micro Microbiology 03/02/20 Urine Culture - Final, Complete Review of Systems Constitutional: yes: weakness, alert, oriented Ears/Nose/Throat: Yes: no symptom reported Eyes: Yes: no symptom reported Pulmonary: Yes no symptom reported Cardiovascular: Yes edema Gastrointestional: Yes: no symptom reported Genitourinary: Yes: no symptom reported Musculoskeletal: Yes: no symptom reported Skin: Yes no symptom reported Psychiatric/Neurological: Yes: no symptom reported Endocrine: Yes: no symptom reported Physical Exam HEENT: Neck Supple W Full Motion Chest: Symmetric LUNGS: Other (mechanical vent ) Heart: RRR (SR/ST) Extremities: Other (anasarca ) Neurology: other (mild sedation ) Assessment Assessment 1. Obstructive colonic mass; s/p open colon resection, cholecystectomy. Path c/w metastatic adenocarcinoma 2. Acute respiratory failure, post-operative. S/p intubation. ? PNA 3. Arrhythmia; Brief period of SVT. Otherwise, has been maintaining SR/ST. Echo with preserved LV systolic function 4. Acute blood loss anemia, s/p transfusion. Hgb stable 5. Hypertension; controlled/adequate; off pressor support 6. Hypocalcemia; improving 7. Protein calorie malnutrition, anasarca; on TPN 8. H/o prostate CA, BPH 9. Tobaccoism Recommendations IV Metoprolol for rate control Supportive care from a CV standpoint Justicifation of Admission Dx: Justifications for Admission: Justification of Admission Dx: Yes JAMMIE HARDING MD 03/13/20 1542: CARDIO Progress Notes Plan Plan Patient seen and examined. Agree with above nurse practitioner note. Supportive care for now. DELANO MORAES APRN Mar 13, 2020 13:46 JAMMIE HARDING MD Mar 13, 2020 15:42
--- NOTE | 2020-03-13 14:07 | PDOC ---
PROGRESS NOTES Chief Complaint Chief Complaint Small bowel dilatation/obstruction suspicious for primary colon cancer 10.5cm mass with surrounding lymph nodes concerning for metastatic disease 10.5 cm colonic mass. Colonic mass abuts the right hepatic lobe inferior margin as well as the duodenum and anterior right kidney (extending through or deforming Gerota's fascia), suspicious for primary colon cancer. Prominent associated lymph nodes are seen, possibly metastatic Obstructing right colon cancer Dialated Appendix fatty liver dz Gallstones Microcytic Anemia Alkaline Phosphatemia Hyponatremia Mild Leukocytosis Tachycardia H/o prostate cancer in remission Severe protein calorie malnutrition LE edema - BNP of 350, no cardiac history and no symptoms of CHF. This is unlikely to be cardiac related at all. Likely likely lymphatic obstruction due to abdominal mass. Hyponatremia - likely due to poor PO intake, SERUM OSMOLALITY PENDING HYPOTENSION, POSSIBLE SEPSIS NPO vent support post=op s/p open right colon POD # 1 remains critically ill 38 min cc time History of Present Illness History of Present Illness 03/13. off pressors, vitals better, weaning sedation and weaning vent doing better cont current Vitals Vitals Vital Signs Date Time Temp Pulse Resp B/P (MAP) Pulse Ox O2 Delivery O2 Flow Rate FiO2 03/13/20 13:09 114 163/103 03/13/20 12:16 94 03/13/20 11:52 Ventilator 03/13/20 10:08 26 03/13/20 08:00 98.7 98.7 Physical Exam Physical Exam SEDATED ON VENT General: No acute distress Heart: Regular rate (ST) Lungs: Clear Abdomen: Soft Extremities: Other (2+ bilateral LE pitting edema, anasarca ) Skin: No significant lesion Labs LABS Laboratory Tests Test 03/12/20 16:09 03/13/20 05:30 03/13/20 07:45 O2 Saturation 80 % (92-99) 98 % (92-99) Arterial Blood pH 7.42 (7.35-7.45) 7.45 (7.35-7.45) Arterial Blood pCO2 at Patient Temp 37 mmHg (35-46) 33 mmHg (35-46) Arterial Blood pO2 at Patient Temp 46 mmHg (65-108) 130 mmHg (65-108) Arterial Blood HCO3 23 mmol/L (21-28) 23 mmol/L (21-28) Arterial Blood Base Excess -1 mmol/L (-3-3) -1 mmol/L (-3-3) FiO2 40%+5 60 White Blood Count 11.0 x10^3/uL (4.0-11.0) Red Blood Count 4.20 x10^6/uL (4.30-5.70) Hemoglobin 11.0 g/dL (13.0-17.5) Hematocrit 33.9 % (39.0-53.0) Mean Corpuscular Volume 81 fL (79-100) Mean Corpuscular Hemoglobin 26 pg (25-35) Mean Corpuscular Hemoglobin Concent 33 g/dL (31-37) Red Cell Distribution Width 28.2 % (11.5-14.5) Platelet Count 268 x10^3/uL (140-400) Neutrophils (%) (Auto) 89 % (31-73) Lymphocytes (%) (Auto) 3 % (24-48) Monocytes (%) (Auto) 8 % (0-9) Eosinophils (%) (Auto) 0 % (0-3) Basophils (%) (Auto) 0 % (0-3) Neutrophils # (Auto) 9.7 x10^3/uL (1.8-7.7) Lymphocytes # (Auto) 0.3 x10^3/uL (1.0-4.8) Monocytes # (Auto) 0.9 x10^3/uL (0.0-1.1) Eosinophils # (Auto) 0.0 x10^3/uL (0.0-0.7) Basophils # (Auto) 0.0 x10^3/uL (0.0-0.2) Segmented Neutrophils % 92 % (35-66) Lymphocytes % 3 % (24-48) Monocytes % 5 % (0-10) Toxic Granulation Slight Platelet Estimate Adequate (ADEQUATE) Polychromasia Slight Anisocytosis Mod Sodium Level 143 mmol/L (136-145) Potassium Level 4.1 mmol/L (3.5-5.1) Chloride Level 110 mmol/L (98-107) Carbon Dioxide Level 29 mmol/L (21-32) Anion Gap 4 (6-14) Blood Urea Nitrogen 15 mg/dL (8-26) Creatinine 0.5 mg/dL (0.7-1.3) Estimated GFR (Cockcroft-Gault) 163.9 Glucose Level 103 mg/dL (70-99) Calcium Level 7.0 mg/dL (8.5-10.1) Assessment and Plan Assessmemt and Plan Problems Medical Problems: (1) Anemia Status: Acute (2) Colonic mass Status: Acute (3) Fatigue Status: Acute (4) Hypocalcemia Status: Acute (5) Nausea & vomiting Status: Acute (6) SBO (small bowel obstruction) Status: Acute Comment Review of Relevant I have reviewed the following items radhames (where applicable) has been applied. Labs Laboratory Tests Test 03/12/20 04:30 03/12/20 08:00 03/12/20 16:09 03/13/20 05:30 White Blood Count 9.0 x10^3/uL (4.0-11.0) 11.0 x10^3/uL (4.0-11.0) Red Blood Count 3.87 x10^6/uL (4.30-5.70) 4.20 x10^6/uL (4.30-5.70) Hemoglobin 9.9 g/dL (13.0-17.5) 11.0 g/dL (13.0-17.5) Hematocrit 30.9 % (39.0-53.0) 33.9 % (39.0-53.0) Mean Corpuscular Volume 80 fL (79-100) 81 fL (79-100) Mean Corpuscular Hemoglobin 26 pg (25-35) 26 pg (25-35) Mean Corpuscular Hemoglobin Concent 32 g/dL (31-37) 33 g/dL (31-37) Red Cell Distribution Width 27.1 % (11.5-14.5) 28.2 % (11.5-14.5) Platelet Count 254 x10^3/uL (140-400) 268 x10^3/uL (140-400) Neutrophils (%) (Auto) 87 % (31-73) 89 % (31-73) Lymphocytes (%) (Auto) 4 % (24-48) 3 % (24-48) Monocytes (%) (Auto) 9 % (0-9) 8 % (0-9) Eosinophils (%) (Auto) 0 % (0-3) 0 % (0-3) Basophils (%) (Auto) 0 % (0-3) 0 % (0-3) Neutrophils # (Auto) 7.7 x10^3/uL (1.8-7.7) 9.7 x10^3/uL (1.8-7.7) Lymphocytes # (Auto) 0.3 x10^3/uL (1.0-4.8) 0.3 x10^3/uL (1.0-4.8) Monocytes # (Auto) 0.8 x10^3/uL (0.0-1.1) 0.9 x10^3/uL (0.0-1.1) Eosinophils # (Auto) 0.0 x10^3/uL (0.0-0.7) 0.0 x10^3/uL (0.0-0.7) Basophils # (Auto) 0.0 x10^3/uL (0.0-0.2) 0.0 x10^3/uL (0.0-0.2) Sodium Level 144 mmol/L (136-145) 143 mmol/L (136-145) Potassium Level 4.0 mmol/L (3.5-5.1) 4.1 mmol/L (3.5-5.1) Chloride Level 111 mmol/L (98-107) 110 mmol/L (98-107) Carbon Dioxide Level 29 mmol/L (21-32) 29 mmol/L (21-32) Anion Gap 4 (6-14) 4 (6-14) Blood Urea Nitrogen 11 mg/dL (8-26) 15 mg/dL (8-26) Creatinine 0.6 mg/dL (0.7-1.3) 0.5 mg/dL (0.7-1.3) Estimated GFR (Cockcroft-Gault) 132.8 163.9 BUN/Creatinine Ratio 18 (6-20) Glucose Level 101 mg/dL (70-99) 103 mg/dL (70-99) Calcium Level 6.9 mg/dL (8.5-10.1) 7.0 mg/dL (8.5-10.1) Phosphorus Level 3.4 mg/dL (2.6-4.7) Magnesium Level 2.2 mg/dL (1.8-2.4) Total Bilirubin 0.2 mg/dL (0.2-1.0) Aspartate Amino Transf (AST/SGOT) 16 U/L (15-37) Alanine Aminotransferase (ALT/SGPT) 15 U/L (16-63) Alkaline Phosphatase 779 U/L (46-116) Total Protein 4.2 g/dL (6.4-8.2) Albumin 0.8 g/dL (3.4-5.0) Albumin/Globulin Ratio 0.2 (1.0-1.7) Thyroid Stimulating Hormone (TSH) 1.438 uIU/mL (0.358-3.74) O2 Saturation 94 % (92-99) 80 % (92-99) Arterial Blood pH 7.45 (7.35-7.45) 7.42 (7.35-7.45) Arterial Blood pCO2 at Patient Temp 39 mmHg (35-46) 37 mmHg (35-46) Arterial Blood pO2 at Patient Temp 71 mmHg (65-108) 46 mmHg (65-108) Arterial Blood HCO3 26 mmol/L (21-28) 23 mmol/L (21-28) Arterial Blood Base Excess 2 mmol/L (-3-3) -1 mmol/L (-3-3) FiO2 40%+5 40%+5 Segmented Neutrophils % 92 % (35-66) Lymphocytes % 3 % (24-48) Monocytes % 5 % (0-10) Toxic Granulation Slight Platelet Estimate Adequate (ADEQUATE) Polychromasia Slight Anisocytosis Mod Test 03/13/20 07:45 O2 Saturation 98 % (92-99) Arterial Blood pH 7.45 (7.35-7.45) Arterial Blood pCO2 at Patient Temp 33 mmHg (35-46) Arterial Blood pO2 at Patient Temp 130 mmHg (65-108) Arterial Blood HCO3 23 mmol/L (21-28) Arterial Blood Base Excess -1 mmol/L (-3-3) FiO2 60 Laboratory Tests Test 03/12/20 16:09 03/13/20 05:30 03/13/20 07:45 O2 Saturation 80 % (92-99) 98 % (92-99) Arterial Blood pH 7.42 (7.35-7.45) 7.45 (7.35-7.45) Arterial Blood pCO2 at Patient Temp 37 mmHg (35-46) 33 mmHg (35-46) Arterial Blood pO2 at Patient Temp 46 mmHg (65-108) 130 mmHg (65-108) Arterial Blood HCO3 23 mmol/L (21-28) 23 mmol/L (21-28) Arterial Blood Base Excess -1 mmol/L (-3-3) -1 mmol/L (-3-3) FiO2 40%+5 60 White Blood Count 11.0 x10^3/uL (4.0-11.0) Red Blood Count 4.20 x10^6/uL (4.30-5.70) Hemoglobin 11.0 g/dL (13.0-17.5) Hematocrit 33.9 % (39.0-53.0) Mean Corpuscular Volume 81 fL (79-100) Mean Corpuscular Hemoglobin 26 pg (25-35) Mean Corpuscular Hemoglobin Concent 33 g/dL (31-37) Red Cell Distribution Width 28.2 % (11.5-14.5) Platelet Count 268 x10^3/uL (140-400) Neutrophils (%) (Auto) 89 % (31-73) Lymphocytes (%) (Auto) 3 % (24-48) Monocytes (%) (Auto) 8 % (0-9) Eosinophils (%) (Auto) 0 % (0-3) Basophils (%) (Auto) 0 % (0-3) Neutrophils # (Auto) 9.7 x10^3/uL (1.8-7.7) Lymphocytes # (Auto) 0.3 x10^3/uL (1.0-4.8) Monocytes # (Auto) 0.9 x10^3/uL (0.0-1.1) Eosinophils # (Auto) 0.0 x10^3/uL (0.0-0.7) Basophils # (Auto) 0.0 x10^3/uL (0.0-0.2) Segmented Neutrophils % 92 % (35-66) Lymphocytes % 3 % (24-48) Monocytes % 5 % (0-10) Toxic Granulation Slight Platelet Estimate Adequate (ADEQUATE) Polychromasia Slight Anisocytosis Mod Sodium Level 143 mmol/L (136-145) Potassium Level 4.1 mmol/L (3.5-5.1) Chloride Level 110 mmol/L (98-107) Carbon Dioxide Level 29 mmol/L (21-32) Anion Gap 4 (6-14) Blood Urea Nitrogen 15 mg/dL (8-26) Creatinine 0.5 mg/dL (0.7-1.3) Estimated GFR (Cockcroft-Gault) 163.9 Glucose Level 103 mg/dL (70-99) Calcium Level 7.0 mg/dL (8.5-10.1) Microbiology 03/02/20 Urine Culture - Final, Complete Medications Current Medications Sodium Chloride 1,000 ml @ 1,000 mls/hr 1X ONCE IV Last administered on 03/02/20at 17:05; Start 03/02/20 at 16:45; Stop 03/02/20 at 17:44; Status DC Calcium Gluconate (Calcium Gluconate) 1,000 mg 1X ONCE IVP Last administered on 03/02/20at 18:21; Start 03/02/20 at 18:15; Stop 03/02/20 at 18:18; Status DC Iohexol (Omnipaque 300 Mg/ml) 75 ml 1X ONCE IV Last administered on 03/02/20at 18:34; Start 03/02/20 at 18:30; Stop 03/02/20 at 18:31; Status DC Pantoprazole Sodium (PROTONIX VIAL for IV PUSH) 40 mg 1X ONCE IVP Last administered on 03/02/20at 18:41; Start 03/02/20 at 18:45; Stop 03/02/20 at 18:46; Status DC Sodium Chloride 1,000 ml @ 100 mls/hr 1X ONCE IV Last administered on 03/02/20at 19:04; Start 03/02/20 at 18:45; Stop 03/03/20 at 04:44; Status DC Enoxaparin Sodium (Lovenox Per Pharmacy Prophylaxis Dosing) 1 each PRN DAILY PRN MC SEE COMMENTS; Start 03/02/20 at 20:30; Status Cancel Enoxaparin Sodium (Lovenox 40mg Syringe) 40 mg Q24H SQ Last administered on 03/02/20at 23:48; Start 03/02/20 at 21:00; Stop 03/03/20 at 08:48; Status DC Tamsulosin HCl (Flomax) 0.4 mg HS PO Last administered on 03/04/20at 21:03; Start 03/02/20 at 23:45 Sodium Chloride 1,000 ml @ 100 mls/hr Q10H IV Last administered on 03/03/20at 11:07; Start 03/03/20 at 10:00; Stop 03/03/20 at 14:58; Status DC Ondansetron HCl (Zofran) 4 mg PRN Q4HRS PRN IV NAUSEA/VOMITING Last administered on 03/04/20at 22:31; Start 03/03/20 at 09:45; Stop 03/05/20 at 16:15; Status DC Acetaminophen (Tylenol Supp) 650 mg PRN Q4HRS PRN VA TEMP OVER 100.4F OR MILD PAIN; Start 03/03/20 at 09:45 Polyethylene Glycol (miraLAX PACKET) 17 gm DAILY PO Last administered on 03/04/20at 09:21; Start 03/03/20 at 10:00; Stop 03/06/20 at 10:25; Status DC Bisacodyl (Dulcolax Supp) 10 mg PRN DAILY PRN VA CONSTIPATION; Start 03/03/20 at 09:45; Stop 03/06/20 at 10:25; Status DC Bisacodyl (Dulcolax Tab) 10 mg PRN DAILY PRN PO CONSTIPATION Last administered on 03/03/20at 13:47; Start 03/03/20 at 09:45; Stop 03/06/20 at 10:25; Status DC Psyllium Hydrophilic Mucilloid (Metamucil Fiber Packet) 1 pkt QHS PO Last administered on 03/04/20at 21:03; Start 03/03/20 at 21:00; Stop 03/06/20 at 10:25; Status DC Polyethylene Glycol (miraLAX PACKET) 17 gm QHS PO Last administered on 03/04at 21:03; Start 03/03/20 at 21:00; Stop 03/06/20 at 10:25; Status DC Docusate Sodium (Colace) 100 mg DAILY PO Last administered on 03/04/20at 09:21; Start 03/03/20 at 12:00; Stop 03/06/20 at 10:25; Status DC Amino Acids/ Glycerin/ Electrolytes 1,000 ml @ 80 mls/hr [id number] IV Last administered on 03/07/20at 02:41; Start 03/03/20 at 15:00; Stop 03/07/20 at 13:22; Status DC Furosemide (Lasix) 40 mg 1X ONCE IVP Last administered on 03/03/20at 16:48; Start 03/03/20 at 15:00; Stop 03/03/20 at 15:01; Status DC Iohexol (Omnipaque 300 Mg/ml) 75 ml 1X ONCE IV Last administered on 03/03/20at 16:33; Start 03/03/20 at 16:15; Stop 03/03/20 at 16:16; Status DC Info (CONTRAST GIVEN -- Rx MONITORING) 1 each PRN DAILY PRN MC SEE COMMENTS; Start 03/03/20 at 16:15; Stop 03/05/20 at 16:15; Status DC Bisacodyl (Dulcolax Supp) 10 mg 1X ONCE VA Last administered on 03/04/20at 12:18; Start 03/04/20 at 10:00; Stop 03/04/20 at 10:05; Status DC Cefoxitin Sodium (Mefoxin) 2 gm 1X PREOP IVP Last administered on 03/05/20at 13 :09; Start 03/05/20 at 10:00; Stop 03/08/20 at 11:05; Status DC Lidocaine (Lidoderm) 1 patch DAILY TD ; Start 03/04/20 at 16:30; Status Cancel Miscellaneous (Lidoderm Patch Removal) 1 ea QHS MC ; Start 03/04/20 at 21:00; Status Cancel Ondansetron HCl (Zofran) 4 mg PRN Q6HRS PRN IVP NAUSEA/VOMITING; Start 03/05/20 at 07:15; Stop 03/05/20 at 20:00; Status DC Fentanyl Citrate (Fentanyl 2ml Vial) 25 mcg PRN Q5MIN PRN IVP MILD PAIN 1-3; Start 03/05/20 at 07:15; Stop 03/05/20 at 20:00; Status DC Fentanyl Citrate (Fentanyl 2ml Vial) 50 mcg PRN Q5MIN PRN IVP MODERATE TO SEVERE PAIN; Start 03/05/20 at 07:15; Stop 03/05/20 at 20:00; Status DC Morphine Sulfate (Morphine Sulfate) 1 mg PRN Q10MIN PRN IVP SEVERE PAIN 7-10; Start 03/05/20 at 07:15; Stop 03/05/20 at 20:00; Status DC Ringer's Solution 1,000 ml @ 30 mls/hr Q24H IV Last administered on 03/05/20at 09:59; Start 03/05/20 at 07:05; Stop 03/05/20 at 19:04; Status DC Lidocaine HCl (Xylocaine-Mpf 1% 2ml Vial) 2 ml 1X PRN PRN ID IV START; Start 03/05/20 at 07:15; Stop 03/05/20 at 20:00; Status DC Hydromorphone HCl (Dilaudid) 0.5 mg PRN Q10MIN PRN IVP SEV PAIN, Second choice; Start 03/05/20 at 07:15; Stop 03/05/20 at 20:00; Status DC Prochlorperazine Edisylate (Compazine) 5 mg PACU PRN PRN IVP NAUSEA, MRX1; Start 03/05/20 at 07:15; Stop 03/06/20 at 07:14; Status DC Pantoprazole Sodium (PROTONIX VIAL for IV PUSH) 40 mg DAILYAC IVP Last administered on 03/13/20at 08:25; Start 03/05/20 at 10:30 Propofol (Diprivan) 200 mg STK-MED ONCE IV ; Start 03/05/20 at 10:23; Stop 03/05/20 at 10:23; Status DC Lidocaine HCl (Lidocaine Pf 2% Vial) 5 ml STK-MED ONCE .ROUTE ; Start 03/05/20 at 10:23; Stop 03/05/20 at 10:23; Status DC Ondansetron HCl (Zofran) 4 mg STK-MED ONCE .ROUTE ; Start 03/05/20 at 10:23; Stop 03/05/20 at 10:23; Status DC Dexamethasone Sodium Phosphate (Decadron) 4 mg STK-MED ONCE .ROUTE ; Start 03/05/20 at 10:23; Stop 03/05/20 at 10:23; Status DC Succinylcholine Chloride (Anectine) 200 mg STK-MED ONCE .ROUTE ; Start 03/05/20 at 10:23; Stop 03/05/20 at 10:23; Status DC Rocuronium [place] (Zemuron) 50 mg STK-MED ONCE .ROUTE ; Start 03/05/20 at 10:24; Stop 03/05/20 at 10:24; Status DC Fentanyl Citrate (Fentanyl 2ml Vial) 100 mcg STK-MED ONCE .ROUTE ; Start 03/05/20 at 10:24; Stop 03/05/20 at 10:24; Status DC Iohexol (Omnipaque 300 Mg/ml) 50 ml STK-MED ONCE .ROUTE Last administered on 03/05/20at 11:43; Start 03/05/20 at 10:41; Stop 03/05/20 at 10:41; Status DC Bupivacaine HCl/ Epinephrine Bitart (Sensorcain-Epi 0.5%-1:[id number] Mpf) 30 ml STK-MED ONCE .ROUTE ; Start 03/05/20 at 10:42; Stop 03/05/20 at 10:42; Status DC Phenylephrine HCl (PHENYLEPHRINE in 0.9% NACL PF) 1 mg STK-MED ONCE IV ; Start 03/05/20 at 12:13; Stop 03/05/20 at 12:14; Status DC Ephedrine Sulfate (ePHEDrine PF IN SALINE SYRINGE) 50 mg STK-MED ONCE IV ; Start 03/05/20 at 12:13; Stop 03/05/20 at 12:14; Status DC Phenylephrine HCl (Devin-Synephrine Inj) 10 mg STK-MED ONCE .ROUTE ; Start 03/05/20 at 12:15; Stop 03/05/20 at 12:15; Status DC Rocuronium [place] (Zemuron) 50 mg STK-MED ONCE .ROUTE ; Start 03/05/20 at 12:27; Stop 03/05/20 at 12:27; Status DC Cefoxitin Sodium (Mefoxin) 1 gm STK-MED ONCE IVP ; Start 03/05/20 at 12:57; Stop 03/05/20 at 12:57; Status DC Albumin Human 500 ml @ As Directed STK-MED ONCE IV ; Start 03/05/20 at 13:08; Stop 03/05/20 at 13:08; Status DC Albumin Human 500 ml @ As Directed STK-MED ONCE IV ; Start 03/05/20 at 13:13; Stop 03/05/20 at 13:14; Status DC Phenylephrine HCl (Devin-Synephrine Inj) 10 mg STK-MED ONCE .ROUTE ; Start 03/05/20 at 13:35; Stop 03/05/20 at 13:35; Status DC Phenylephrine HCl (Devin-Synephrine Inj) 10 mg STK-MED ONCE .ROUTE ; Start 03/05/20 at 13:48; Stop 03/05/20 at 13:49; Status DC Sevoflurane (Ultane) 90 ml STK-MED ONCE IH ; Start 03/05/20 at 14:30; Stop 03/05/20 at 14:30; Status DC Phenylephrine HCl (Devin-Synephrine Inj) 10 mg STK-MED ONCE .ROUTE ; Start 03/05/20 at 14:35; Stop 03/05/20 at 14:36; Status DC Midazolam HCl 100 mg/Sodium Chloride 100 ml @ 1 mls/hr CONT PRN IV SEE I/O RECORD Last administered on 03/13/20at 08:16; Start 03/05/20 at 15:15 Fentanyl Citrate 30 ml @ 2.5 mls/hr CONT PRN PRN IV PER PROTOCOL Last administered on 03/13/20at 08:19; Start 03/05/20 at 15:15 Naloxone HCl (Narcan) 0.4 mg PRN Q2MIN PRN IV SEE INSTRUCTIONS; Start 03/05/20 at 15:15; Stop 03/06/20 at 09:45; Status DC Sodium Chloride 1,000 ml @ 25 mls/hr Q24H IV ; Start 03/05/20 at 15:13; Stop 03/06/20 at 14:24; Status DC Norepinephrine Bitartrate 8 mg/ Dextrose 258 ml @ 15.287 mls/ hr CONT PRN IV PER PROTOCOL Last administered on 03/11/20at 18:15; Start 03/05/20 at 15:30 Enoxaparin Sodium (Lovenox 40mg Syringe) 40 mg Q24H SQ Last administered on 03/13/20at 08:25; Start 03/06/20 at 08:00 Sodium Chloride (Normal Saline Flush) 3 ml QSHIFT PRN IV AFTER MEDS AND BLOOD DRAWS; Start 03/05/20 at 16:15 Ringer's Solution 1,000 ml @ 100 mls/hr Q10H IV Last administered on 03/08/20at 11:19; Start 03/05/20 at 16:09; Stop 03/08/20 at 18:54; Status DC Naloxone HCl (Narcan) 0.4 mg PRN Q2MIN PRN IV SEE INSTRUCTIONS; Start 03/05/20 at 16:15 Sodium Chloride 1,000 ml @ 25 mls/hr Q24H IV ; Start 03/05/20 at 16:09; Stop 03/06/20 at 14:24; Status DC Morphine Sulfate 30 ml @ 0 mls/hr CONT PRN PRN IV PER PROTOCOL; Start 03/05/20 at 16:15; Stop 03/06/20 at 09:48; Status DC Ondansetron HCl (Zofran) 4 mg PRN Q6HRS PRN IVP NAUESA, 1ST CHOICE; Start 03/05/20 at 16:15 Piperacillin Sod/ Tazobactam Sod 3.375 gm/Sodium Chloride 50 ml @ 100 mls/hr Q6HRS IV Last administered on 03/13/20at 13:07; Start 03/05/20 at 17:00 Ringer's Solution 1,000 ml @ 999 mls/hr 1X ONCE IV Last administered on 03/05/20at 20:59; Start 03/05/20 at 20:00; Stop 03/05/20 at 21:00; Status DC Vasopressin 20 unit/Dextrose 101 ml @ 12 mls/hr CONT PRN IV SEE I/O RECORD Last administered on 03/11/20at 06:25; Start 03/05/20 at 20:00 Ringer's Solution 1,000 ml @ 999 mls/hr 1X ONCE IV Last administered on 03/06/20at 01:07; Start 03/06/20 at 01:00; Stop 03/06/20 at 02:00; Status DC Ringer's Solution 1,000 ml @ 999 mls/hr 1X ONCE IV Last administered on 03/06/20at 05:18; Start 03/06/20 at 05:00; Stop 03/06/20 at 06:00; Status DC Ringer's Solution 1,000 ml @ 999 mls/hr 1X ONCE IV Last administered on 03/06/20at 09:54; Start 03/06/20 at 09:45; Stop 03/06/20 at 10:45; Status DC Ringer's Solution 1,000 ml @ 999 mls/hr 1X ONCE IV Last administered on 03/06/20at 13:40; Start 03/06/20 at 13:45; Stop 03/06/20 at 14:45; Status DC Ringer's Solution 1,000 ml @ 999 mls/hr 1X ONCE IV Last administered on 03/06/20at 18:43; Start 03/06/20 at 18:15; Stop 03/06/20 at 19:15; Status DC Sodium Chloride 200 ml @ 50 mls/hr 1X ONCE IV Last administered on 03/07/20at 13:49; Start 03/07/20 at 13:30; Stop 03/07/20 at 17:29; Status DC Potassium Phosphate 13.6 mmol/Sodium Chloride 254.5333 ml @ 62.5 mls/hr Q4H IV Last administered on 03/08/20at 16:52; Start 03/08/20 at 08:30; Stop 03/08/20 at 20:29; Status DC Magnesium Sulfate 50 ml @ 25 mls/hr 1X ONCE IV Last administered on 03/08/20at 08:00; Start 03/08/20 at 08:00; Stop 03/08/20 at 09:59; Status DC Sodium Chloride 300 ml @ 50 mls/hr 1X ONCE IV Last administered on 03/08/20at 08:00; Start 03/08/20 at 08:00; Stop 03/08/20 at 13:59; Status DC Info (Tpn Per Pharmacy) 1 each PRN DAILY PRN MC SEE COMMENTS Last administered on 03/13/20at 08:29; Start 03/08/20 at 11:00 Sodium Chloride 100 meq/Potassium Chloride 50 meq/ Potassium Phosphate 18 mmol/ Magnesium Sulfate 15 meq/Calcium Gluconate 10 meq/ Multivitamins 10 ml/Chromium/ Copper/Manganese/ Seleni/Zn 1 ml/ Total Parenteral Nutrition/Amino Acids/Dextrose/ Fat Emulsion Intravenous 1,512 ml @ 63 mls/hr TPN CONT IV ; Start 03/08/20 at 22:00; Stop 03/08/20 at 11:31; Status DC Sodium Chloride 100 meq/Potassium Chloride 50 meq/ Potassium Phosphate 18 mmol/ Magnesium Sulfate 15 meq/Calcium Gluconate 10 meq/ Multivitamins 10 ml/Chromium/ Copper/Manganese/ Seleni/Zn 1 ml/ Total Parenteral Nutrition/Amino Acids/De xtrose/ Fat Emulsion Intravenous 1,920 ml @ 80 mls/hr TPN CONT IV Last administered on 03/08/20at 23:04; Start 03/08/20 at 22:00; Stop 03/09/20 at 21:59; Status DC Potassium Chloride/Water 100 ml @ 100 mls/hr 1X ONCE IV Last administered on 03/08/20at 15:51; Start 03/08/20 at 16:00; Stop 03/08/20 at 16:59; Status DC Sodium Chloride 100 meq/Potassium Chloride 50 meq/ Potassium Phosphate 18 mmol/ Magnesium Sulfate 15 meq/Calcium Gluconate 10 meq/ Multivitamins 10 ml/Chromium/ Copper/Manganese/ Seleni/Zn 1 ml/ Total Parenteral Nutrition/Amino Acids/Dextrose/ Fat Emulsion Intravenous 1,920 ml @ 80 mls/hr TPN CONT IV Last administered on 03/09/20at 22:00; Start 03/09/20 at 22:00; Stop 03/10/20 at 21:59; Status DC Sodium Phosphate 15 mmol/Sodium Chloride 255 ml @ 63.75 mls/ hr 1X ONCE IV Last administered on 03/10/20at 08:45; Start 03/10/20 at 09:00; Stop 03/10/20 at 12:59; Status DC Sodium Chloride 100 meq/Sodium Phosphate 15 mmol/ Potassium Chloride 50 meq/ Potassium Phosphate 18 mmol/ Magnesium Sulfate 15 meq/Calcium Gluconate 10 meq/ Multivitamins 10 ml/Chromium/ Copper/Manganese/ Seleni/Zn 1 ml/ Total Parenteral Nutrition/Amino Acids/Dextrose/ Fat Emulsion Intravenous 1,920 ml @ 80 mls/hr TPN CONT IV Last administered on 03/10/20at 21:41; Start 03/10/20 at 22:00; Stop 03/11/20 at 21:59; Status DC Sodium Phosphate 15 mmol/Sodium Chloride 255 ml @ 63.75 mls/ hr 1X ONCE IV Last administered on 03/11/20at 12:00; Start 03/11/20 at 10:00; Stop 03/11/20 at 13:59; Status DC Sodium Chloride 100 meq/Sodium Phosphate 15 mmol/ Potassium Chloride 50 meq/ Potassium Phosphate 18 mmol/ Magnesium Sulfate 15 meq/Calcium Gluconate 10 meq/ Multivitamins 10 ml/Chromium/ Copper/Manganese/ Seleni/Zn 1 ml/ Total Parenteral Nutrition/Amino Acids/Dextrose/ Fat Emulsion Intravenous 1,920 ml @ 80 mls/hr TPN CONT IV Last administered on 03/11/20at 21:52; Start 03/11/20 at 22:00; Stop 03/12/20 at 21:59; Status DC Dexmedetomidine HCl 400 mcg/ Sodium Chloride 100 ml @ 0 mls/hr CONT PRN IV SEE COMMENTS Last administered on 03/11/20at 10:15; Start 03/11/20 at 10:00 Sodium Chloride 500 ml @ 500 mls/hr 1X PRN PRN IV SEE COMMENTS; Start 03/11/20 at 10:00 Atropine Sulfate (ATROPINE 0.5mg SYRINGE) 0.5 mg PRN Q5MIN PRN IV SEE COMMENTS; Start 03/11/20 at 10:00 Calcium Gluconate (Calcium Gluconate) 1,000 mg 1X ONCE IVP Last administered on 03/11/20at 12:35; Start 03/11/20 at 12:30; Stop 03/11/20 at 12:31; Status DC Sodium Chloride 80 meq/Sodium Phosphate 15 mmol/ Potassium Chloride 50 meq/ Potassium Phosphate 15 mmol/ Magnesium Sulfate 15 meq/Calcium Gluconate 10 meq/ Multivitamins 10 ml/Chromium/ Copper/Manganese/ Seleni/Zn 1 ml/ Total Parenteral Nutrition/Amino Acids/Dextrose/ Fat Emulsion Intravenous 1,920 ml @ 80 mls/hr TPN CONT IV Last administered on 03/12/20at 22:06; Start 03/12/20 at 22:00; Stop 03/13/20 at 21:59 Metoprolol Tartrate (Lopressor Vial) 2.5 mg Q6HRS IVP Last administered on 03/13/20at 13:09; Start 03/12/20 at 12:00 Albuterol Sulfate (Ventolin Neb Soln) 2.5 mg 1X ONCE NEB Last administered on 03/13/20at 00:00; Start 03/13/20 at 00:00; Stop 03/13/20 at 00:01; Status DC Sodium Chloride 80 meq/Sodium Phosphate 15 mmol/ Potassium Chloride 50 meq/ Potassium Phosphate 15 mmol/ Magnesium Sulfate 15 meq/Calcium Gluconate 10 meq/ Multivitamins 10 ml/Chromium/ Copper/Manganese/ Seleni/Zn 1 ml/ Total Parenteral Nutrition/Amino Acids/Dextrose/ Fat Emulsion Intravenous 1,920 ml @ 80 mls/hr TPN CONT IV ; Start 03/13/20 at 22:00; Stop 03/14/20 at 21:59 Albuterol/ Ipratropium (Duoneb) 3 ml RTQID NEB Last administered on 03/13/20at 11:51; Start 03/13/20 at 12:00 Active Scripts Active Reported Flomax (Tamsulosin Hcl) 0.4 Mg Cap.er.24h 1 Cap PO QHS Vitals/I & O Vital Sign - Last 24 Hours 03/12/20 03/12/20 03/12/20 03/12/20 15:00 15:37 16:00 16:00 Temp 98.0 98.0 Pulse 120 98 Resp 23 24 B/P (MAP) 127/67 (87) 112/69 (83) Pulse Ox 98 97 100 O2 Delivery Ventilator Ventilator Ventilator Mechanical Ventilator 03/12/20 03/12/20 03/12/20 03/12/20 16:30 16:56 17:00 17:01 Pulse 92 112 90 Resp 20 B/P (MAP) 113/70 (84) 139/82 127/82 (97) Pulse Ox 98 97 92 O2 Delivery Ventilator Ventilator Ventilator 03/12/20 03/12/20 03/12/20 03/12/20 17:23 17:31 17:55 18:10 Pulse 92 93 Resp 22 24 B/P (MAP) 124/77 (93) 116/72 (87) Pulse Ox 100 100 98 92 O2 Delivery Ventilator Ventilator Ventilator 03/12/20 03/12/20 03/12/20 03/12/20 19:00 19:50 20:00 20:00 Temp 97.7 97.7 Pulse 106 112 Resp 28 B/P (MAP) 144/93 (110) 121/78 (92) Pulse Ox 96 100 100 O2 Delivery Ventilator Ventilator Mechanical Ventilator Ventilator 03/12/20 03/12/20 03/12/20 03/12/20 21:00 22:00 23:00 23:35 Pulse 110 106 96 Resp 20 26 21 B/P (MAP) 106/86 (93) 115/94 (101) 141/99 (113) Pulse Ox 97 100 100 82 O2 Delivery Ventilator Ventilator Ventilator Ventilator 03/12/20 03/12/20 03/12/20 03/13/20 23:40 23:50 23:52 00:00 Temp 97.7 97.7 Pulse 81 92 Resp 18 B/P (MAP) 143/82 143/82 (102) Pulse Ox 84 100 94 O2 Delivery Ventilator Ventilator Ventilator 03/13/20 03/13/20 03/13/20 03/13/20 00:00 00:30 00:57 01:00 Pulse 85 Resp 22 20 B/P (MAP) 83/64 (70) Pulse Ox 100 100 O2 Delivery Mechanical Ventilator Ventilator Ventilator Ventilator 03/13/20 03/13/20 03/13/20 03/13/20 01:30 02:00 03:00 03:46 Pulse 102 111 Resp 22 18 27 B/P (MAP) 93/64 (74) 136/87 (103) Pulse Ox 100 100 100 100 O2 Delivery Ventilator Ventilator Ventilator 03/13/20 03/13/20 03/13/20 03/13/20 04:00 04:00 05:00 06:00 Temp 97.7 97.7 Pulse 112 119 113 Resp 25 28 25 B/P (MAP) 157/98 (117) 148/96 (113) 147/106 (120) Pulse Ox 99 94 97 O2 Delivery Mechanical Ventilator Ventilator Ventilator Ventilator 03/13/20 03/13/20 03/13/20 03/13/20 06:16 07:00 07:29 08:00 Temp 98.7 98.7 Pulse 113 96 102 Resp 22 20 B/P (MAP) 147/106 152/100 (117) 109/73 (85) Pulse Ox 100 100 100 O2 Delivery Ventilator Ventilator Ventilator 03/13/20 03/13/20 03/13/20 03/13/20 08:00 08:19 08:49 09:00 Pulse 92 Resp 24 B/P (MAP) 86/58 (67) Pulse Ox 100 99 86 O2 Delivery Mechanical Ventilator Ventilator 03/13/20 03/13/20 03/13/20 03/13/20 10:08 11:52 12:16 13:09 Pulse 93 114 Resp 26 B/P (MAP) 125/100 (108) 163/103 Pulse Ox 99 100 94 O2 Delivery Ventilator Ventilator Intake and Output 03/12/20 03/12/20 03/13/20 15:00 23:00 07:00 Intake Total 0 ml 1254 ml 1169 ml Output Total 395 ml 515 ml 690 ml Balance -395 ml 739 ml 479 ml Nutrition Consultation Dietary Evaluation: Recommendations by RD: Dietary education by RD, Increase Calorie Intake, PPN/TPN Comments: Continue w/TPN as ordered: 95 g AA, 225 g dextrose, 20 g lipids When appropriate, recommend TFs per following: VitalAF@10 ml/hr, increase 10 ml q8 hrs as tolerated to goal rate 55 ml/hr w/125 ml water flushes q4 hrs. When TFs infusing and tolerated at 75% goal rate (40 ml/hr) recommend stopping TPN to avoid overfeeding Expected Outcomes/Goals: New goal 03/08: TPN to meet >65% est needs while intubated - met, goal ongoing Malnutrition Findings: Food and Nutrition Intake (Mod: <75% est energy req 7days Weight Status: Appropriate Justicifation of Admission Dx: Justifications for Admission: Justification of Admission Dx: Yes MARLYS ENCARNACION MD Mar 13, 2020 14:06
[2020-03-13] MEDS: TAMSULOSIN 0.4 MG CAP.ER.24H. PO SCH (19:38)
[2020-03-13] MEDS ORDERED: DEXTROSE 70% IV SCH (22:00)
[2020-03-13] MEDS ORDERED: TOTAL PARENTERAL NUTRITION IV SCH (22:00)
[2020-03-13] MEDS ORDERED: AMINO ACID IV SCH (22:00)
[2020-03-13] MEDS ORDERED: [UNRECOGNIZED DRUG - OTHER] IV SCH (22:00)
[2020-03-14] VITALS (24 sets, daily range): BP systolic 87–158; BP diastolic 54–109
[2020-03-14] MEDS: PIPERACILLIN/TAZOBACTAM 3.375 GM in IV NORMAL SALINE 50ML 50 ML IV SCH ×3 (05:38→17:47)
[2020-03-14] MEDS: METOPROLOL TARTRATE 5 MG/5 ML VIAL. IVP SCH ×4 (05:39→18:25)
[2020-03-14 06:05] LABS: CALCIUM 6.9 mg/dL (8.5-10.1); CREATININE 0.5 mg/dL (0.7-1.3); GFR 163.9; PHOSPHORUS 3.3 mg/dL (2.6-4.7); POTASSIUM 3.9 mmol/L (3.5-5.1)
[2020-03-14] MEDS: IPRATRPIUM/ALBUTEROL 0.5/2.5MG 3 ML NEBU. NEB SCH ×4 (07:47→20:14)
[2020-03-14] MEDS: TPN PER PHARMACY MC PRN (07:54)
--- NOTE | 2020-03-14 07:55 | NUR ---
Pharmacy TPN Dosing Note S: FABIANO HELLER is a 69 year old M Currently receiving Central Continuous TPN started 03/08/20 B:Pertinent PMH: NPO/SBO Height: 6 feet, 3 inches Weight: 90.5 kg Current diet: NPO LABS: Sodium: 143 Potassium: 4.1 Chloride: 110 Calcium: 7.0 Corrected Calcium: 9.56 Magnesium: 2.2 CO2: 29 SCr: 0.5 Glucose: 103 Albumin: 0.8 AST: 16 ALT: 15 TPN FORMULA: TPN TYPE: Central Continuous AMINO ACIDS: 95 gm DEXTROSE: 225 gm LIPIDS: 20 gm SODIUM CHLORIDE: 80 mEq SODIUM ACETATE: - mEq SODIUM PHOSPHATE: 15 mmol POTASSIUM CHLORIDE: 50 mEq POTASSIUM ACETATE: - mEq POTASSIUM PHOSPHATE: 18 mmol MAGNESIUM: 12 mEq CALCIUM: 10 mEq INSULIN: - units MULTIPLE VITAMIN: 10 ml TRACE ELEMENTS: 1 ml ml(s) TPN PLAN: No labs today; continue same TPN. BMP/phos/mag in AM. R: Continue TPN ABOVE. Will monitor electrolytes, glucose, and tolerance to TPN. [facility], 03/14/20 [id number]
--- NOTE | 2020-03-14 08:36 | PDOC ---
PULMONARY PROGRESS NOTES Subjective Patient off sedation, moves all extremities Vitals Vital Signs Date Time Temp Pulse Resp B/P (MAP) Pulse Ox O2 Delivery O2 Flow Rate FiO2 03/14/20 07:38 100 Ventilator 03/14/20 06:00 96 20 147/82 (103) 03/14/20 04:00 97.4 97.4 Comments intubated/sedated Lungs: Clear Cardiovascular: S1, S2 Abdomen: Other (Dressing in place, jace drain ) Extremities: No Edema Skin: Warm Labs Laboratory Tests Test 03/12/20 16:09 03/13/20 05:30 03/13/20 07:45 03/14/20 05:20 O2 Saturation 80 % (92-99) 98 % (92-99) Arterial Blood pH 7.42 (7.35-7.45) 7.45 (7.35-7.45) Arterial Blood pCO2 at Patient Temp 37 mmHg (35-46) 33 mmHg (35-46) Arterial Blood pO2 at Patient Temp 46 mmHg (65-108) 130 mmHg (65-108) Arterial Blood HCO3 23 mmol/L (21-28) 23 mmol/L (21-28) Arterial Blood Base Excess -1 mmol/L (-3-3) -1 mmol/L (-3-3) FiO2 40%+5 60 White Blood Count 11.0 x10^3/uL (4.0-11.0) Red Blood Count 4.20 x10^6/uL (4.30-5.70) Hemoglobin 11.0 g/dL (13.0-17.5) Hematocrit 33.9 % (39.0-53.0) Mean Corpuscular Volume 81 fL (79-100) Mean Corpuscular Hemoglobin 26 pg (25-35) Mean Corpuscular Hemoglobin Concent 33 g/dL (31-37) Red Cell Distribution Width 28.2 % (11.5-14.5) Platelet Count 268 x10^3/uL (140-400) Neutrophils (%) (Auto) 89 % (31-73) Lymphocytes (%) (Auto) 3 % (24-48) Monocytes (%) (Auto) 8 % (0-9) Eosinophils (%) (Auto) 0 % (0-3) Basophils (%) (Auto) 0 % (0-3) Neutrophils # (Auto) 9.7 x10^3/uL (1.8-7.7) Lymphocytes # (Auto) 0.3 x10^3/uL (1.0-4.8) Monocytes # (Auto) 0.9 x10^3/uL (0.0-1.1) Eosinophils # (Auto) 0.0 x10^3/uL (0.0-0.7) Basophils # (Auto) 0.0 x10^3/uL (0.0-0.2) Segmented Neutrophils % 92 % (35-66) Lymphocytes % 3 % (24-48) Monocytes % 5 % (0-10) Toxic Granulation Slight Platelet Estimate Adequate (ADEQUATE) Polychromasia Slight Anisocytosis Mod Sodium Level 143 mmol/L (136-145) 141 mmol/L (136-145) Potassium Level 4.1 mmol/L (3.5-5.1) 3.9 mmol/L (3.5-5.1) Chloride Level 110 mmol/L (98-107) 110 mmol/L (98-107) Carbon Dioxide Level 29 mmol/L (21-32) 27 mmol/L (21-32) Anion Gap 4 (6-14) 4 (6-14) Blood Urea Nitrogen 15 mg/dL (8-26) 18 mg/dL (8-26) Creatinine 0.5 mg/dL (0.7-1.3) 0.5 mg/dL (0.7-1.3) Estimated GFR (Cockcroft-Gault) 163.9 163.9 Glucose Level 103 mg/dL (70-99) 88 mg/dL (70-99) Calcium Level 7.0 mg/dL (8.5-10.1) 6.9 mg/dL (8.5-10.1) Phosphorus Level 3.3 mg/dL (2.6-4.7) Magnesium Level 2.0 mg/dL (1.8-2.4) Triglycerides Level 56 mg/dL (0-150) Laboratory Tests Test 03/14/20 05:20 Sodium Level 141 mmol/L (136-145) Potassium Level 3.9 mmol/L (3.5-5.1) Chloride Level 110 mmol/L (98-107) Carbon Dioxide Level 27 mmol/L (21-32) Anion Gap 4 (6-14) Blood Urea Nitrogen 18 mg/dL (8-26) Creatinine 0.5 mg/dL (0.7-1.3) Estimated GFR (Cockcroft-Gault) 163.9 Glucose Level 88 mg/dL (70-99) Calcium Level 6.9 mg/dL (8.5-10.1) Phosphorus Level 3.3 mg/dL (2.6-4.7) Magnesium Level 2.0 mg/dL (1.8-2.4) Triglycerides Level 56 mg/dL (0-150) Medications Active Scripts Medications Dose Route/Sig Max Daily Dose Days Date Category Flomax (Tamsulosin Hcl) 0.4 Mg Cap.er.24h 1 Cap PO QHS 03/02/20 Reported Comments CXR 03/11/20 IMPRESSION: 1. Stable left basilar opacities and small left pleural effusion. 2. Stable life support devices. Impression . IMPRESSION: 1. Acute hypoxemic respiratory failure, expected status post surgical intervention for colonic mass. 2. Obstructing colonic cancer. 3. History of prostate cancer. 4. Severe protein malnutrition present upon admission. 5. Tobacco dependent. 6. Chronic obstructive pulmonary disease. 7. SARS-CoV-2 negative. 8. Cholelithiasis. 9. Hyponatremia. 10. Protein malnutrition, present upon admission. 11. Benign prostatic hypertrophy. 12. S/p open right colon resection, partial resection of duodenum, placement of duodenostomy tube, cholecystectomy, ghost ileostomy 13. Acute blood loss anemia 14. Respiratory alkalosis 15. Hypocalcemia-- correct calcium WNL 16. SVT Plan . Maintain off sedation, pressure support trials as tolerated IV metoprolol DVT GI prophylaxis ABG noted, adjust minute ventilation Monitor H&H Follow nephrology recs Cont. vasopressors to Keep MAP above 65--now off levo Cont. TPN for nutrition Cont. ABX DVT GI prophylaxis D/W RN and RT Total cumulative critical care time of 30 minutes reviewing data, labs, chest x-ray and formulating a plan. DOTTIE WILBURN MD Mar 14, 2020 08:36
[2020-03-14] MEDS: PANTOPRAZOLE IV PUSH 40 MG VIAL. IVP SCH (08:40)
[2020-03-14] MEDS: ENOXAPARIN 40 MG/0.4 ML SYRINGE. SQ SCH (08:40)
[2020-03-14 08:57] LABS: BASE EXCESS ABG 5 mmol/L (-3-3); HCO3 ABG 28 mmol/L (21-28); PCO2 ABG 35 mmHg (35-46); PO2 ABG 86 mmHg (65-108); SAT O2 ABG 96 % (92-99)
--- NOTE | 2020-03-14 08:58 | PDOC ---
PROGRESS NOTES Chief Complaint Chief Complaint A/P: Acute respiratory failure, post-operative. S/p intubation. ? PNA Small bowel dilatation/obstruction suspicious for primary colon cancer 10.5cm mass with surrounding lymph nodes concerning for metastatic disease 10.5 cm colonic mass. Colonic mass abuts the right hepatic lobe inferior margin as well as the duodenum and anterior right kidney (extending through or deforming Gerota's fascia), suspicious for primary colon cancer. Prominent associated lymph nodes are seen, possibly metastatic Obstructing right colon cancer Dialated Appendix fatty liver dz Gallstones Microcytic Anemia Alkaline Phosphatemia Hyponatremia Mild Leukocytosis Tachycardia H/o prostate cancer in remission Severe protein calorie malnutrition LE edema - BNP of 350, no cardiac history and no symptoms of CHF. This is unlikely to be cardiac related at all. Likely likely lymphatic obstruction due to abdominal mass. Hyponatremia - likely due to poor PO intake, SERUM OSMOLALITY PENDING HYPOTENSION, POSSIBLE SEPSIS SVT - Arrhythmia; Brief period of SVT. Otherwise, has been maintaining SR/ST Acute blood loss anemia, s/p transfusion Hypocalcemia Plan NPO vent support post=op remains critically ill 38 min cc time History of Present Illness History of Present Illness Mr Claudio is a 69 yo CM hx of prostate cancer s/p radiation, HTN, prediabetes now off meds who presents with vomiting fatigue diarrhea weight loss and decreased appetite for 1 month. He went to see his PCP because over the past week he had sudden onset lower extremity edema, patient had labs drawn as outpatient and called by PCP to go to the hospital for a blood transfusion and treatment for CHF. No history of CHF. On ROS he just notes his bones feel heavy. He also notes over the past 2 months sometimes he will choke on food and vomited up. His last bowel movement was 2 days ago and it was diarrhea. He has not been able to eat very well. He just feels tired. He stopped smoking over 25 years ago and he only did smoke cigars at that time. With regard to his prostate cancer he states that he had 43 radiation treatments and had a PET scan at the end of 2019 and was told he is in remission. He has never had a colonoscopy. in ED patient found to have hb of 9.8. na 130. noted to be tachy with HR 110. Patient lives with 101 year old mom. His mother has history of stage III colon cancer diagnosed at age 76. His brother has history of prostate cancer, father of lung cancer. 03/05: To OR for open right colon resection with partial duodenal resection, duodenostomy tube, cholecystectomy w/ cholangiogram and ghost ileostomy. Returned to ICU on ventilator. Pulm consulted 03/12: SVT - cardiology consulted, resolved without intervention 03/13. off pressors, vitals better, weaning sedation and weaning vent doing better, cont current. Failed vent wean. He is obviously confused, but attempting to self extubate with mittens on . Labs improved. AC mode with rate of 12, 500cc/40% FiO2/ PEEP of 5. Vitals Vitals Vital Signs Date Time Temp Pulse Resp B/P (MAP) Pulse Ox O2 Delivery O2 Flow Rate FiO2 03/14/20 08:50 113 137/104 03/14/20 07:38 100 Ventilator 03/14/20 06:00 20 03/14/20 04:00 97.4 97.4 Physical Exam Physical Exam SEDATED ON VENT General: No acute distress Heart: Regular rate (ST) Lungs: Clear Abdomen: Soft Extremities: Other (2+ bilateral LE pitting edema, anasarca ) Skin: No significant lesion Labs LABS Laboratory Tests Test 03/14/20 05:20 Sodium Level 141 mmol/L (136-145) Potassium Level 3.9 mmol/L (3.5-5.1) Chloride Level 110 mmol/L (98-107) Carbon Dioxide Level 27 mmol/L (21-32) Anion Gap 4 (6-14) Blood Urea Nitrogen 18 mg/dL (8-26) Creatinine 0.5 mg/dL (0.7-1.3) Estimated GFR (Cockcroft-Gault) 163.9 Glucose Level 88 mg/dL (70-99) Calcium Level 6.9 mg/dL (8.5-10.1) Phosphorus Level 3.3 mg/dL (2.6-4.7) Magnesium Level 2.0 mg/dL (1.8-2.4) Triglycerides Level 56 mg/dL (0-150) Assessment and Plan Assessmemt and Plan Problems Medical Problems: (1) Anemia Status: Acute (2) Colonic mass Status: Acute (3) Fatigue Status: Acute (4) Hypocalcemia Status: Acute (5) Nausea & vomiting Status: Acute (6) SBO (small bowel obstruction) Status: Acute Comment Review of Relevant I have reviewed the following items radhames (where applicable) has been applied. Labs Laboratory Tests Test 03/12/20 16:09 03/13/20 05:30 03/13/20 07:45 03/14/20 05:20 O2 Saturation 80 % (92-99) 98 % (92-99) Arterial Blood pH 7.42 (7.35-7.45) 7.45 (7.35-7.45) Arterial Blood pCO2 at Patient Temp 37 mmHg (35-46) 33 mmHg (35-46) Arterial Blood pO2 at Patient Temp 46 mmHg (65-108) 130 mmHg (65-108) Arterial Blood HCO3 23 mmol/L (21-28) 23 mmol/L (21-28) Arterial Blood Base Excess -1 mmol/L (-3-3) -1 mmol/L (-3-3) FiO2 40%+5 60 White Blood Count 11.0 x10^3/uL (4.0-11.0) Red Blood Count 4.20 x10^6/uL (4.30-5.70) Hemoglobin 11.0 g/dL (13.0-17.5) Hematocrit 33.9 % (39.0-53.0) Mean Corpuscular Volume 81 fL (79-100) Mean Corpuscular Hemoglobin 26 pg (25-35) Mean Corpuscular Hemoglobin Concent 33 g/dL (31-37) Red Cell Distribution Width 28.2 % (11.5-14.5) Platelet Count 268 x10^3/uL (140-400) Neutrophils (%) (Auto) 89 % (31-73) Lymphocytes (%) (Auto) 3 % (24-48) Monocytes (%) (Auto) 8 % (0-9) Eosinophils (%) (Auto) 0 % (0-3) Basophils (%) (Auto) 0 % (0-3) Neutrophils # (Auto) 9.7 x10^3/uL (1.8-7.7) Lymphocytes # (Auto) 0.3 x10^3/uL (1.0-4.8) Monocytes # (Auto) 0.9 x10^3/uL (0.0-1.1) Eosinophils # (Auto) 0.0 x10^3/uL (0.0-0.7) Basophils # (Auto) 0.0 x10^3/uL (0.0-0.2) Segmented Neutrophils % 92 % (35-66) Lymphocytes % 3 % (24-48) Monocytes % 5 % (0-10) Toxic Granulation Slight Platelet Estimate Adequate (ADEQUATE) Polychromasia Slight Anisocytosis Mod Sodium Level 143 mmol/L (136-145) 141 mmol/L (136-145) Potassium Level 4.1 mmol/L (3.5-5.1) 3.9 mmol/L (3.5-5.1) Chloride Level 110 mmol/L (98-107) 110 mmol/L (98-107) Carbon Dioxide Level 29 mmol/L (21-32) 27 mmol/L (21-32) Anion Gap 4 (6-14) 4 (6-14) Blood Urea Nitrogen 15 mg/dL (8-26) 18 mg/dL (8-26) Creatinine 0.5 mg/dL (0.7-1.3) 0.5 mg/dL (0.7-1.3) Estimated GFR (Cockcroft-Gault) 163.9 163.9 Glucose Level 103 mg/dL (70-99) 88 mg/dL (70-99) Calcium Level 7.0 mg/dL (8.5-10.1) 6.9 mg/dL (8.5-10.1) Phosphorus Level 3.3 mg/dL (2.6-4.7) Magnesium Level 2.0 mg/dL (1.8-2.4) Triglycerides Level 56 mg/dL (0-150) Laboratory Tests Test 03/14/20 05:20 Sodium Level 141 mmol/L (136-145) Potassium Level 3.9 mmol/L (3.5-5.1) Chloride Level 110 mmol/L (98-107) Carbon Dioxide Level 27 mmol/L (21-32) Anion Gap 4 (6-14) Blood Urea Nitrogen 18 mg/dL (8-26) Creatinine 0.5 mg/dL (0.7-1.3) Estimated GFR (Cockcroft-Gault) 163.9 Glucose Level 88 mg/dL (70-99) Calcium Level 6.9 mg/dL (8.5-10.1) Phosphorus Level 3.3 mg/dL (2.6-4.7) Magnesium Level 2.0 mg/dL (1.8-2.4) Triglycerides Level 56 mg/dL (0-150) Microbiology 03/02/20 Urine Culture - Final, Complete Medications Current Medications Sodium Chloride 1,000 ml @ 1,000 mls/hr 1X ONCE IV Last administered on 03/02/20at 17:05; Start 03/02/20 at 16:45; Stop 03/02/20 at 17:44; Status DC Calcium Gluconate (Calcium Gluconate) 1,000 mg 1X ONCE IVP Last administered on 03/02/20at 18:21; Start 03/02/20 at 18:15; Stop 03/02/20 at 18:18; Status DC Iohexol (Omnipaque 300 Mg/ml) 75 ml 1X ONCE IV Last administered on 03/02/20at 18:34; Start 03/02/20 at 18:30; Stop 03/02/20 at 18:31; Status DC Pantoprazole Sodium (PROTONIX VIAL for IV PUSH) 40 mg 1X ONCE IVP Last administered on 03/02/20at 18:41; Start 03/02/20 at 18:45; Stop 03/02/20 at 18:46; Status DC Sodium Chloride 1,000 ml @ 100 mls/hr 1X ONCE IV Last administered on 03/02/20at 19:04; Start 03/02/20 at 18:45; Stop 03/03/20 at 04:44; Status DC Enoxaparin Sodium (Lovenox Per Pharmacy Prophylaxis Dosing) 1 each PRN DAILY PRN MC SEE COMMENTS; Start 03/02/20 at 20:30; Status Cancel Enoxaparin Sodium (Lovenox 40mg Syringe) 40 mg Q24H SQ Last administered on 03/02/20at 23:48; Start 03/02/20 at 21:00; Stop 03/03/20 at 08:48; Status DC Tamsulosin HCl (Flomax) 0.4 mg HS PO Last administered on 03/04/20at 21:03; Start 03/02/20 at 23:45 Sodium Chloride 1,000 ml @ 100 mls/hr Q10H IV Last administered on 03/03/20at 11:07; Start 03/03/20 at 10:00; Stop 03/03/20 at 14:58; Status DC Ondansetron HCl (Zofran) 4 mg PRN Q4HRS PRN IV NAUSEA/VOMITING Last administered on 03/04/20at 22:31; Start 03/03/20 at 09:45; Stop 03/05/20 at 16 :15; Status DC Acetaminophen (Tylenol Supp) 650 mg PRN Q4HRS PRN IA TEMP OVER 100.4F OR MILD PAIN; Start 03/03/20 at 09:45 Polyethylene Glycol (miraLAX PACKET) 17 gm DAILY PO Last administered on 03/04/20at 09:21; Start 03/03/20 at 10:00; Stop 03/06/20 at 10:25; Status DC Bisacodyl (Dulcolax Supp) 10 mg PRN DAILY PRN IA CONSTIPATION; Start 03/03/20 at 09:45; Stop 03/06/20 at 10:25; Status DC Bisacodyl (Dulcolax Tab) 10 mg PRN DAILY PRN PO CONSTIPATION Last administered on 03/03/20at 13:47; Start 03/03/20 at 09:45; Stop 03/06/20 at 10:25; Status DC Psyllium Hydrophilic Mucilloid (Metamucil Fiber Packet) 1 pkt QHS PO Last admin istered on 03/04/20at 21:03; Start 03/03/20 at 21:00; Stop 03/06/20 at 10:25; Status DC Polyethylene Glycol (miraLAX PACKET) 17 gm QHS PO Last administered on 03/04/20at 21:03; Start 03/03/20 at 21:00; Stop 03/06/20 at 10:25; Status DC Docusate Sodium (Colace) 100 mg DAILY PO Last administered on 03/04/20at 09:21; Start 03/03/20 at 12:00; Stop 03/06/20 at 10:25; Status DC Amino Acids/ Glycerin/ Electrolytes 1,000 ml @ 80 mls/hr [id number] IV Last administered on 03/07/20at 02:41; Start 03/03/20 at 15:00; Stop 03/07/20 at 13:22; Status DC Furosemide (Lasix) 40 mg 1X ONCE IVP Last administered on 03/03/20at 16:48; Start 03/03/20 at 15:00; Stop 03/03/20 at 15:01; Status DC Iohexol (Omnipaque 300 Mg/ml) 75 ml 1X ONCE IV Last administered on 03/03/20at 16:33; Start 03/03/20 at 16:15; Stop 03/03/20 at 16:16; Status DC Info (CONTRAST GIVEN -- Rx MONITORING) 1 each PRN DAILY PRN MC SEE COMMENTS; Start 03/03/20 at 16:15; Stop 03/05/20 at 16:15; Status DC Bisacodyl (Dulcolax Supp) 10 mg 1X ONCE IA Last administered on 03/04/20at 12:18; Start 03/04/20 at 10:00; Stop 03/04/20 at 10:05; Status DC Cefoxitin Sodium (Mefoxin) 2 gm 1X PREOP IVP Last administered on 03/05/20at 13:09; Start 03/05/20 at 10:00; Stop 03/08/20 at 11:05; Status DC Lidocaine (Lidoderm) 1 patch DAILY TD ; Start 03/04/20 at 16:30; Status Cancel Miscellaneous (Lidoderm Patch Removal) 1 ea QHS MC ; Start 03/04/20 at 21:00; Status Cancel Ondansetron HCl (Zofran) 4 mg PRN Q6HRS PRN IVP NAUSEA/VOMITING; Start 03/05/20 at 07:15; Stop 03/05/20 at 20:00; Status DC Fentanyl Citrate (Fentanyl 2ml Vial) 25 mcg PRN Q5MIN PRN IVP MILD PAIN 1-3; Start 03/05/20 at 07:15; Stop 03/05/20 at 20:00; Status DC Fentanyl Citrate (Fentanyl 2ml Vial) 50 mcg PRN Q5MIN PRN IVP MODERATE TO SEVERE PAIN; Start 03/05/20 at 07:15; Stop 03/05/20 at 20:00; Status DC Morphine Sulfate (Morphine Sulfate) 1 mg PRN Q10MIN PRN IVP SEVERE PAIN 7-10; Start 03/05/20 at 07:15; Stop 03/05/20 at 20:00; Status DC Ringer's Solution 1,000 ml @ 30 mls/hr Q24H IV Last administered on 03/05/20at 09:59; Start 03/05/20 at 07:05; Stop 03/05/20 at 19:04; Status DC Lidocaine HCl (Xylocaine-Mpf 1% 2ml Vial) 2 ml 1X PRN PRN ID IV START; Start 03/05/20 at 07:15; Stop 03/05/20 at 20:00; Status DC Hydromorphone HCl (Dilaudid) 0.5 mg PRN Q10MIN PRN IVP SEV PAIN, Second choice; Start 03/05/20 at 07:15; Stop 03/05/20 at 20:00; Status DC Prochlorperazine Edisylate (Compazine) 5 mg PACU PRN PRN IVP NAUSEA, MRX1; Start 03/05/20 at 07:15; Stop 03/06/20 at 07:14; Status DC Pantoprazole Sodium (PROTONIX VIAL for IV PUSH) 40 mg DAILYAC IVP Last administered on 03/14/20at 08:40; Start 03/05/20 at 10:30 Propofol (Diprivan) 200 mg STK-MED ONCE IV ; Start 03/05/20 at 10:23; Stop 03/05/20 at 10:23; Status DC Lidocaine HCl (Lidocaine Pf 2% Vial) 5 ml STK-MED ONCE .ROUTE ; Start 03/05/20 at 10:23; Stop 03/05/20 at 10:23; Status DC Ondansetron HCl (Zofran) 4 mg STK-MED ONCE .ROUTE ; Start 03/05/20 at 10:23; Stop 03/05/20 at 10:23; Status DC Dexamethasone Sodium Phosphate (Decadron) 4 mg STK-MED ONCE .ROUTE ; Start 03/05/20 at 10:23; Stop 03/05/20 at 10:23; Status DC Succinylcholine Chloride (Anectine) 200 mg STK-MED ONCE .ROUTE ; Start 03/05/20 at 10:23; Stop 03/05/20 at 10:23; Status DC Rocuronium Hazlet (Zemuron) 50 mg STK-MED ONCE .ROUTE ; Start 03/05/20 at 10:24; Stop 03/05/20 at 10:24; Status DC Fentanyl Citrate (Fentanyl 2ml Vial) 100 mcg STK-MED ONCE .ROUTE ; Start 03/05/20 at 10:24; Stop 03/05/20 at 10:24; Status DC Iohexol (Omnipaque 300 Mg/ml) 50 ml STK-MED ONCE .ROUTE Last administered on 03/05/20at 11:43; Start 03/05/20 at 10:41; Stop 03/05/20 at 10:41; Status DC Bupivacaine HCl/ Epinephrine Bitart (Sensorcain-Epi 0.5%-1:[id number] Mpf) 30 ml STK-MED ONCE .ROUTE ; Start 03/05/20 at 10:42; Stop 03/05/20 at 10:42; Status DC Phenylephrine HCl (PHENYLEPHRINE in 0.9% NACL PF) 1 mg STK-MED ONCE IV ; Start 03/05/20 at 12:13; Stop 03/05/20 at 12:14; Status DC Ephedrine Sulfate (ePHEDrine PF IN SALINE SYRINGE) 50 mg STK-MED ONCE IV ; Start 03/05/20 at 12:13; Stop 03/05/20 at 12:14; Status DC Phenylephrine HCl (Devin-Synephrine Inj) 10 mg STK-MED ONCE .ROUTE ; Start 03/05/20 at 12:15; Stop 03/05/20 at 12:15; Status DC Rocuronium Hazlet (Zemuron) 50 mg STK-MED ONCE .ROUTE ; Start 03/05/20 at 12:27; Stop 03/05/20 at 12:27; Status DC Cefoxitin Sodium (Mefoxin) 1 gm STK-MED ONCE IVP ; Start 03/05/20 at 12:57; Stop 03/05/20 at 12:57; Status DC Albumin Human 500 ml @ As Directed STK-MED ONCE IV ; Start 03/05/20 at 13:08; Stop 03/05/20 at 13:08; Status DC Albumin Human 500 ml @ As Directed STK-MED ONCE IV ; Start 03/05/20 at 13:13; Stop 03/05/20 at 13:14; Status DC Phenylephrine HCl (Devin-Synephrine Inj) 10 mg STK-MED ONCE .ROUTE ; Start 03/05/20 at 13:35; Stop 03/05/20 at 13:35; Status DC Phenylephrine HCl (Devin-Synephrine Inj) 10 mg STK-MED ONCE .ROUTE ; Start 03/05/20 at 13:48; Stop 03/05/20 at 13:49; Status DC Sevoflurane (Ultane) 90 ml STK-MED ONCE IH ; Start 03/05/20 at 14:30; Stop 03/05/20 at 14:30; Status DC Phenylephrine HCl (Devin-Synephrine Inj) 10 mg STK-MED ONCE .ROUTE ; Start 03/05/20 at 14:35; Stop 03/05/20 at 14:36; Status DC Midazolam HCl 100 mg/Sodium Chloride 100 ml @ 1 mls/hr CONT PRN IV SEE I/O RECORD Last administered on 03/13/20at 19:50; Start 03/05/20 at 15:15 Fentanyl Citrate 30 ml @ 2.5 mls/hr CONT PRN PRN IV PER PROTOCOL Last administered on 03/14/20at 00:21; Start 03/05/20 at 15:15 Naloxone HCl (Narcan) 0.4 mg PRN Q2MIN PRN IV SEE INSTRUCTIONS; Start 03/05/20 at 15:15; Stop 03/06/20 at 09:45; Status DC Sodium Chloride 1,000 ml @ 25 mls/hr Q24H IV ; Start 03/05/20 at 15:13; Stop 03/06/20 at 14:24; Status DC Norepinephrine Bitartrate 8 mg/ Dextrose 258 ml @ 15.287 mls/ hr CONT PRN IV PER PROTOCOL Last administered on 03/11/20at 18:15; Start 03/05/20 at 15:30 Enoxaparin Sodium (Lovenox 40mg Syringe) 40 mg Q24H SQ Last administered on 03/14at 08:40; Start 03/06/20 at 08:00 Sodium Chloride (Normal Saline Flush) 3 ml QSHIFT PRN IV AFTER MEDS AND BLOOD DRAWS; Start 03/05/20 at 16:15 Ringer's Solution 1,000 ml @ 100 mls/hr Q10H IV Last administered on 03/08/20at 11:19; Start 03/05/20 at 16:09; Stop 03/08/20 at 18:54; Status DC Naloxone HCl (Narcan) 0.4 mg PRN Q2MIN PRN IV SEE INSTRUCTIONS; Start 03/05/20 at 16:15 Sodium Chloride 1,000 ml @ 25 mls/hr Q24H IV ; Start 03/05/20 at 16:09; Stop 03/06/20 at 14:24; Status DC Morphine Sulfate 30 ml @ 0 mls/hr CONT PRN PRN IV PER PROTOCOL; Start 03/05/20 at 16:15; Stop 03/06/20 at 09:48; Status DC Ondansetron HCl (Zofran) 4 mg PRN Q6HRS PRN IVP NAUESA, 1ST CHOICE; Start 03/05/20 at 16:15 Piperacillin Sod/ Tazobactam Sod 3.375 gm/Sodium Chloride 50 ml @ 100 mls/hr Q6HRS IV Last administered on 03/14/20at 05:38; Start 03/05/20 at 17:00 Ringer's Solution 1,000 ml @ 999 mls/hr 1X ONCE IV Last administered on 03/05/20at 20:59; Start 03/05/20 at 20:00; Stop 03/05/20 at 21:00; Status DC Vasopressin 20 unit/Dextrose 101 ml @ 12 mls/hr CONT PRN IV SEE I/O RECORD Last administered on 03/11/20at 06:25; Start 03/05/20 at 20:00 Ringer's Solution 1,000 ml @ 999 mls/hr 1X ONCE IV Last administered on 03/06/20at 01:07; Start 03/06/20 at 01:00; Stop 03/06/20 at 02:00; Status DC Ringer's Solution 1,000 ml @ 999 mls/hr 1X ONCE IV Last administered on 03/06/20at 05:18; Start 03/06/20 at 05:00; Stop 03/06/20 at 06:00; Status DC Ringer's Solution 1,000 ml @ 999 mls/hr 1X ONCE IV Last administered on 03/06/20at 09:54; Start 03/06/20 at 09:45; Stop 03/06/20 at 10:45; Status DC Ringer's Solution 1,000 ml @ 999 mls/hr 1X ONCE IV Last administered on 03/06/20at 13:40; Start 03/06/20 at 13:45; Stop 03/06/20 at 14:45; Status DC Ringer's Solution 1,000 ml @ 999 mls/hr 1X ONCE IV Last administered on 03/06/20at 18:43; Start 03/06/20 at 18:15; Stop 03/06/20 at 19:15; Status DC Sodium Chloride 200 ml @ 50 mls/hr 1X ONCE IV Last administered on 03/07/20at 13:49; Start 03/07/20 at 13:30; Stop 03/07/20 at 17:29; Status DC Potassium Phosphate 13.6 mmol/Sodium Chloride 254.5333 ml @ 62.5 mls/hr Q4H IV Last administered on 03/08/20at 16:52; Start 03/08/20 at 08:30; Stop 03/08/20 at 20:29; Status DC Magnesium Sulfate 50 ml @ 25 mls/hr 1X ONCE IV Last administered on 03/08/20at 08:00; Start 03/08/20 at 08:00; Stop 03/08/20 at 09:59; Status DC Sodium Chloride 300 ml @ 50 mls/hr 1X ONCE IV Last administered on 03/08/20at 08:00; Start 03/08/20 at 08:00; Stop 03/08/20 at 13:59; Status DC Info (Tpn Per Pharmacy) 1 each PRN DAILY PRN MC SEE COMMENTS Last administered on 03/14/20at 07:54; Start 03/08/20 at 11:00 Sodium Chloride 100 meq/Potassium Chloride 50 meq/ Potassium Phosphate 18 mmol/ Magnesium Sulfate 15 meq/Calcium Gluconate 10 meq/ Multivitamins 10 ml/Chromium/ Copper/Manganese/ Seleni/Zn 1 ml/ Total Parenteral Nutrition/Amino Acids/Dextrose/ Fat Emulsion Intravenous 1,512 ml @ 63 mls/hr TPN CONT IV ; S tart 03/08/20 at 22:00; Stop 03/08/20 at 11:31; Status DC Sodium Chloride 100 meq/Potassium Chloride 50 meq/ Potassium Phosphate 18 mmol/ Magnesium Sulfate 15 meq/Calcium Gluconate 10 meq/ Multivitamins 10 ml/Chromium/ Copper/Manganese/ Seleni/Zn 1 ml/ Total Parenteral Nutrition/Amino Acids/Dextrose/ Fat Emulsion Intravenous 1,920 ml @ 80 mls/hr TPN CONT IV Last administered on 03/08/20at 23:04; Start 03/08/20 at 22:00; Stop 03/09/20 at 21:59; Status DC Potassium Chloride/Water 100 ml @ 100 mls/hr 1X ONCE IV Last administered on 03/08/20at 15:51; Start 03/08/20 at 16:00; Stop 03/08/20 at 16:59; Status DC Sodium Chloride 100 meq/Potassium Chloride 50 meq/ Potassium Phosphate 18 mmol/ Magnesium Sulfate 15 meq/Calcium Gluconate 10 meq/ Multivitamins 10 ml/Chromium/ Copper/Manganese/ Seleni/Zn 1 ml/ Total Parenteral Nutrition/Amino Acids/Dextrose/ Fat Emulsion Intravenous 1,920 ml @ 80 mls/hr TPN CONT IV Last administered on 03/09/20at 22:00; Start 03/09/20 at 22:00; Stop 03/10/20 at 21:59; Status DC Sodium Phosphate 15 mmol/Sodium Chloride 255 ml @ 63.75 mls/ hr 1X ONCE IV Last administered on 03/10/20at 08:45; Start 03/10/20 at 09:00; Stop 03/10/20 at 12:59; Status DC Sodium Chloride 100 meq/Sodium Phosphate 15 mmol/ Potassium Chloride 50 meq/ Potassium Phosphate 18 mmol/ Magnesium Sulfate 15 meq/Calcium Gluconate 10 meq/ Multivitamins 10 ml/Chromium/ Copper/Manganese/ Seleni/Zn 1 ml/ Total Parenteral Nutrition/Amino Acids/Dextrose/ Fat Emulsion Intravenous 1,920 ml @ 80 mls/hr TPN CONT IV Last administered on 03/10/20at 21:41; Start 03/10/20 at 22:00; Stop 03/11/20 at 21:59; Status DC Sodium Phosphate 15 mmol/Sodium Chloride 255 ml @ 63.75 mls/ hr 1X ONCE IV Last administered on 03/11/20at 12:00; Start 03/11/20 at 10:00; Stop 03/11/20 at 13:59; Status DC Sodium Chloride 100 meq/Sodium Phosphate 15 mmol/ Potassium Chloride 50 meq/ Potassium Phosphate 18 mmol/ Magnesium Sulfate 15 meq/Calcium Gluconate 10 meq/ Multivitamins 10 ml/Chromium/ Copper/Manganese/ Seleni/Zn 1 ml/ Total Parenteral Nutrition/Amino Acids/Dextrose/ Fat Emulsion Intravenous 1,920 ml @ 80 mls/hr TPN CONT IV Last administered on 03/11/20at 21:52; Start 03/11/20 at 22:00; Stop 03/12/20 at 21:59; Status DC Dexmedetomidine HCl 400 mcg/ Sodium Chloride 100 ml @ 0 mls/hr CONT PRN IV SEE COMMENTS Last administered on 03/11/20at 10:15; Start 03/11/20 at 10:00 Sodium Chloride 500 ml @ 500 mls/hr 1X PRN PRN IV SEE COMMENTS; Start 03/11/20 at 10:00 Atropine Sulfate (ATROPINE 0.5mg SYRINGE) 0.5 mg PRN Q5MIN PRN IV SEE COMMENTS; Start 03/11/20 at 10:00 Calcium Gluconate (Calcium Gluconate) 1,000 mg 1X ONCE IVP Last administered on 03/11/20at 12:35; Start 03/11/20 at 12:30; Stop 03/11/20 at 12:31; Status DC Sodium Chloride 80 meq/Sodium Phosphate 15 mmol/ Potassium Chloride 50 meq/ Potassium Phosphate 15 mmol/ Magnesium Sulfate 15 meq/Calcium Gluconate 10 meq/ Multivitamins 10 ml/Chromium/ Copper/Manganese/ Seleni/Zn 1 ml/ Total Parenteral Nutrition/Amino Acids/Dextrose/ Fat Emulsion Intravenous 1,920 ml @ 80 mls/hr TPN CONT IV Last administered on 03/12/20at 22:06; Start 03/12/20 at 22:00; Stop 03/13/20 at 21:59; Status DC Metoprolol Tartrate (Lopressor Vial) 2.5 mg Q6HRS IVP Last administered on 03/14/20at 08:50; Start 03/12/20 at 12:00 Albuterol Sulfate (Ventolin Neb Soln) 2.5 mg 1X ONCE NEB Last administered on 03/13/20at 00:00; Start 03/13/20 at 00:00; Stop 03/13/20 at 00:01; Status DC Sodium Chloride 80 meq/Sodium Phosphate 15 mmol/ Potassium Chloride 50 meq/ Potassium Phosphate 15 mmol/ Magnesium Sulfate 15 meq/Calcium Gluconate 10 meq/ Multivitamins 10 ml/Chromium/ Copper/Manganese/ Seleni/Zn 1 ml/ Total Parenteral Nutrition/Amino Acids/Dextrose/ Fat Emulsion Intravenous 1,920 ml @ 80 mls/hr TPN CONT IV Last administered on 03/13/20at 22:01; Start 03/13/20 at 22:00; Stop 03/14/20 at 21:59 Albuterol/ Ipratropium (Duoneb) 3 ml RTQID NEB Last administered on 03/14/20at 07:47; Start 03/13/20 at 12:00 Sodium Chloride 80 meq/Sodium Phosphate 15 mmol/ Potassium Chloride 50 meq/ Potassium Phosphate 15 mmol/ Magnesium Sulfate 15 meq/Calcium Gluconate 10 meq/ Multivitamins 10 ml/Chromium/ Copper/Manganese/ Seleni/Zn 1 ml/ Total Parenteral Nutrition/Amino Acids/Dextrose/ Fat Emulsion Intravenous 1,920 ml @ 80 mls/hr TPN CONT IV ; Start 03/14/20 at 22:00; Stop 03/15/20 at 21:59 Active Scripts Active Reported Flomax (Tamsulosin Hcl) 0.4 Mg Cap.er.24h 1 Cap PO QHS Vitals/I & O Vital Sign - Last 24 Hours 03/13/20 03/13/20 03/13/20 03/13/20 09:00 10:08 11:00 11:52 Pulse 92 93 100 Resp 24 26 B/P (MAP) 86/58 (67) 125/100 (108) 140/95 (110) Pulse Ox 86 99 96 100 O2 Delivery Ventilator Ventilator Ventilator Ventilator 03/13/20 03/13/20 03/13/20 03/13/20 12:00 12:00 12:16 13:00 Temp 98.3 98.3 Pulse 110 112 Resp 36 22 B/P (MAP) 140/85 (103) 99/61 (74) Pulse Ox 27 94 O2 Delivery Ventilator Mechanical Ventilator Ventilator 03/13/20 03/13/20 03/13/20 03/13/20 13:09 14:00 15:00 15:07 Pulse 114 92 Resp 22 B/P (MAP) 163/103 98/56 (70) 151/85 (107) Pulse Ox 92 98 O2 Delivery Ventilator Ventilator Ventilator 03/13/20 03/13/20 03/13/20 03/13/20 16:00 16:00 17:00 17:21 Temp 97.9 97.9 Pulse 114 106 Resp 20 18 22 B/P (MAP) 138/85 (102) 95/62 (73) Pulse Ox 86 98 96 O2 Delivery Ventilator Mechanical Ventilator Ventilator Ventilator 03/13/20 03/13/20 03/13/20 03/13/20 18:04 19:00 19:00 19:52 Pulse 100 117 Resp 23 23 B/P (MAP) 176/104 (128) 161/108 Pulse Ox 95 98 98 O2 Delivery Ventilator Ventilator 03/13/20 03/13/20 03/13/20 03/13/20 20:00 20:00 20:34 21:00 Temp 97.6 97.6 Pulse 113 107 Resp 23 25 B/P (MAP) 161/108 (125) 118/88 (98) Pulse Ox 98 98 96 O2 Delivery Mechanical Ventilator Ventilator Ventilator Ventilator 03/13/20 03/13/20 03/13/20 03/13/20 22:00 23:00 23:50 23:57 Pulse 108 98 100 Resp 26 22 B/P (MAP) 166/100 (122) 98/51 (67) 152/97 Pulse Ox 98 97 100 O2 Delivery Ventilator Ventilator Ventilator 03/13/20 03/14/20 03/14/20 03/14/20 23:59 00:00 00:21 01:00 Temp 98.4 98.4 Pulse 76 79 Resp 17 17 14 B/P (MAP) 152/97 (115) 91/61 (71) Pulse Ox 100 100 100 O2 Delivery Mechanical Ventilator Ventilator Ventilator Ventilator 03/14/20 03/14/20 03/14/20 03/14/20 01:00 02:00 03:00 03:50 Pulse 148 93 Resp 23 19 22 B/P (MAP) 125/97 (106) 127/93 (104) Pulse Ox 98 98 100 97 O2 Delivery Ventilator Ventilator Ventilator Ventilator 03/14/20 03/14/20 03/14/20 03/14/20 04:00 04:00 05:00 05:39 Temp 97.4 97.4 Pulse 91 85 96 Resp 16 14 B/P (MAP) 142/95 (111) 87/54 (65) 147/82 Pulse Ox 100 100 O2 Delivery Ventilator Mechanical Ventilator Ventilator 03/14/20 03/14/20 03/14/20 06:00 07:38 08:50 Pulse 96 113 Resp 20 B/P (MAP) 147/82 (103) 137/104 Pulse Ox 100 100 O2 Delivery Ventilator Ventilator Intake and Output 03/13/20 03/13/20 03/14/20 15:00 23:00 07:00 Intake Total 0 ml 1418 ml Output Total 300 ml 670 ml 680 ml Balance -300 ml -670 ml 738 ml Nutrition Consultation Dietary Evaluation: Recommendations by RD: Dietary education by RD, Increase Calorie Intake, PPN/TPN Comments: Continue w/TPN as ordered: 95 g AA, 225 g dextrose, 20 g lipids When appropriate, recommend TFs per following: VitalAF@10 ml/hr, increase 10 ml q8 hrs as tolerated to goal rate 55 ml/hr w/125 ml water flushes q4 hrs. When TFs infusing and tolerated at 75% goal rate (40 ml/hr) recommend stopping TPN to avoid overfeeding Expected Outcomes/Goals: New goal 03/08: TPN to meet >65% est needs while intubated - met, goal ongoing Malnutrition Findings: Food and Nutrition Intake (Mod: <75% est energy req 7days Weight Status: Appropriate Justicifation of Admission Dx: Justifications for Admission: Justification of Admission Dx: Yes RAIN CRYSTAL MD Mar 14, 2020 08:58
[2020-03-14 09:05] LABS: FIO2 ABG 50
--- NOTE | 2020-03-14 09:57 | PDOC ---
SUBJECTIVE ROS Remains Intubated ,On MV OBJECTIVE Vital Signs Vital Signs Date Time Temp Pulse Resp B/P (MAP) Pulse Ox O2 Delivery O2 Flow Rate FiO2 03/14/20 09:50 Ventilator 03/14/20 09:11 26 100 03/14/20 09:00 104 147/90 (109) 03/14/20 08:00 98.3 98.3 I & 0 Intake and Output 03/14/20 07:00 Intake Total 1418 ml Output Total 1700 ml Balance -282 ml Intake Oral 0 ml IV Total 1418 ml Output Urine Total 1035 ml Gastric Drainage Total 200 ml Drainage Total 465 ml PHYSICAL EXAM Physical Exam General Appearance: no apparent distress HEEN Intubated Skin: warm Respiratory: decreased at bases Heart: S1S2 Abdomen: s/p Surgery Genitourinary: Booth + Neurology: Intubated Ext- 3+ LE edema (sever Hypoalbuminemia) DIAGNOSIS/ASSESSMENT Assessment & Plan Hyponatremia -resolved, Sodium normal GEORGES- Cr Normal- may not be accurate 2/2 severe malnutrition but stable Supportive care , avoid nephrotoxins HypoCalcemia- Albumin 0.8, iCa low,- replaced, Improved Replace as needed HyPhos- Replace as indicated 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 S/P Open right colon resection, partial resection of duodenum, placement of duodenostomy tube, cholecystectomy with cholangiogram, ghost ileostomy Anemia- s/p PRBC Severe protein calorie malnutrition- On TPN HX of prostate cancer BPH COMMENT/RELEVANT DATA Meds Current Medications Medications (Trade) Dose Ordered Sig/Faisal Start Time Stop Time Status Last Admin Dose Admin Acetaminophen (Tylenol Supp) 650 mg PRN Q4HRS PRN 03/03/20 09:45 Albumin Human 500 ml @ As Directed STK-MED ONCE 03/05/20 13:13 03/05/20 13:14 DC Albuterol Sulfate (Ventolin Neb Soln) 2.5 mg 1X ONCE 03/13/20 00:00 03/13/20 00:01 DC 03/13/20 00:00 2.5 MG Albuterol/ Ipratropium (Duoneb) 3 ml RTQID 03/13/20 12:00 03/14/20 07:47 3 ML Amino Acids/ Glycerin/ Electrolytes 1,000 ml @ 80 mls/hr [id number] 03/03/20 15:00 03/07/20 13:22 DC 03/07/20 02:41 80 MLS/HR Atropine Sulfate (ATROPINE 0.5mg SYRINGE) 0.5 mg PRN Q5MIN PRN 03/11/20 10:00 Bisacodyl (Dulcolax Supp) 10 mg 1X ONCE 03/04/20 10:00 03/04/20 10:05 DC 03/04/20 12:18 10 MG Bisacodyl (Dulcolax Tab) 10 mg PRN DAILY PRN 03/03/20 09:45 03/06/20 10:25 DC 03/03/20 13:47 10 MG Bupivacaine HCl/ Epinephrine Bitart (Sensorcain-Epi 0.5%-1:[id number] Mpf) 30 ml STK-MED ONCE 03/05/20 10:42 03/05/20 10:42 DC Calcium Gluconate (Calcium Gluconate) 1,000 mg 1X ONCE 03/11/20 12:30 03/11/20 12:31 DC 03/11/20 12:35 1,000 MG Cefoxitin Sodium (Mefoxin) 1 gm STK-MED ONCE 03/05/20 12:57 03/05/20 12:57 DC Dexamethasone Sodium Phosphate (Decadron) 4 mg STK-MED ONCE 03/05/20 10:23 03/05/20 10:23 DC Dexmedetomidine HCl 400 mcg/ Sodium Chloride 100 ml @ 0 mls/hr CONT PRN 03/11/20 10:00 03/11/20 10:15 3.8 MLS/HR Docusate Sodium (Colace) 100 mg DAILY 03/03/20 12:00 03/06/20 10:25 DC 03/04/20 09:21 100 MG Enoxaparin Sodium (Lovenox 40mg Syringe) 40 mg Q24H 03/06/20 08:00 03/14/20 08:40 40 MG Enoxaparin Sodium (Lovenox Per Pharmacy Prophylaxis Dosing) 1 each PRN DAILY PRN 03/02/20 20:30 Cancel Ephedrine Sulfate (ePHEDrine PF IN SALINE SYRINGE) 50 mg STK-MED ONCE 03/05/20 12:13 03/05/20 12:14 DC Fentanyl Citrate 30 ml @ 2.5 mls/hr CONT PRN PRN 03/05/20 15:15 03/14/20 09:11 2.5 MLS/HR Fentanyl Citrate (Fentanyl 2ml Vial) 100 mcg STK-MED ONCE 03/05/20 10:24 03/05/20 10:24 DC Furosemide (Lasix) 40 mg 1X ONCE 03/03/20 15:00 03/03/20 15:01 DC 03/03/20 16:48 40 MG Hydromorphone HCl (Dilaudid) 0.5 mg PRN Q10MIN PRN 03/05/20 07:15 03/05/20 20:00 DC Info (CONTRAST GIVEN -- Rx MONITORING) 1 each PRN DAILY PRN 03/03/20 16:15 03/05/20 16:15 DC Info (Tpn Per Pharmacy) 1 each PRN DAILY PRN 03/08/20 11:00 03/14/20 07:54 1 EACH Iohexol (Omnipaque 300 Mg/ml) 50 ml STK-MED ONCE 03/05/20 10:41 03/05/20 10:41 DC 03/05/20 11:43 27 ML Lidocaine (Lidoderm) 1 patch DAILY 03/04/20 16:30 Cancel Lidocaine HCl (Lidocaine Pf 2% Vial) 5 ml STK-MED ONCE 03/05/20 10:23 03/05/20 10:23 DC Lidocaine HCl (Xylocaine-Mpf 1% 2ml Vial) 2 ml 1X PRN PRN 03/05/20 07:15 03/05/20 20:00 DC Magnesium Sulfate 50 ml @ 25 mls/hr 1X ONCE 03/08/20 08:00 03/08/20 09:59 DC 03/08/20 08:00 25 MLS/HR Metoprolol Tartrate (Lopressor Vial) 2.5 mg Q6HRS 03/12/20 12:00 03/14/20 08:50 2.5 MG Midazolam HCl 100 mg/Sodium Chloride 100 ml @ 1 mls/hr CONT PRN 03/05/20 15:15 03/13/20 19:50 7 MLS/HR Miscellaneous (Lidoderm Patch Removal) 1 ea QHS 03/04/20 21:00 Cancel Morphine Sulfate 30 ml @ 0 mls/hr CONT PRN PRN 03/05/20 16:15 03/06/20 09:48 DC Morphine Sulfate (Morphine Sulfate) 1 mg PRN Q10MIN PRN 03/05/20 07:15 03/05/20 20:00 DC Naloxone HCl (Narcan) 0.4 mg PRN Q2MIN PRN 03/05/20 16:15 Norepinephrine Bitartrate 8 mg/ Dextrose 258 ml @ 15.287 mls/ hr CONT PRN 03/05/20 15:30 03/11/20 18:15 15.287 MLS/HR Ondansetron HCl (Zofran) 4 mg PRN Q6HRS PRN 03/05/20 16:15 Pantoprazole Sodium (PROTONIX VIAL for IV PUSH) 40 mg DAILYAC 03/05/20 10:30 03/14/20 08:40 40 MG Phenylephrine HCl (Devin-Synephrine Inj) 10 mg STK-MED ONCE 03/05/20 14:35 03/05/20 14:36 DC Phenylephrine HCl (PHENYLEPHRINE in 0.9% NACL PF) 1 mg STK-MED ONCE 03/05/20 12:13 03/05/20 12:14 DC Piperacillin Sod/ Tazobactam Sod 3.375 gm/Sodium Chloride 50 ml @ 100 mls/hr Q6HRS 03/05/20 17:00 03/14/20 05:38 100 MLS/HR Polyethylene Glycol (miraLAX PACKET) 17 gm QHS 03/03/20 21:00 03/06/20 10:25 DC 03/04/20 21:03 17 GM Potassium Chloride/Water 100 ml @ 100 mls/hr 1X ONCE 03/08/20 16:00 03/08/20 16:59 DC 03/08/20 15:51 100 MLS/HR Potassium Phosphate 13.6 mmol/Sodium Chloride 254.5333 ml @ 62.5 mls/hr Q4H 03/08/20 08:30 03/08/20 20:29 DC 03/08/20 16:52 62.5 MLS/HR Prochlorperazine Edisylate (Compazine) 5 mg PACU PRN PRN 03/05/20 07:15 03/06/20 07:14 DC Propofol (Diprivan) 200 mg STK-MED ONCE 03/05/20 10:23 03/05/20 10:23 DC Psyllium Hydrophilic Mucilloid (Metamucil Fiber Packet) 1 pkt QHS 03/03/20 21:00 03/06/20 10:25 DC 03/04/20 21:03 1 PKT Ringer's Solution 1,000 ml @ 999 mls/hr 1X ONCE 03/06/20 18:15 03/06/20 19:15 DC 03/06/20 18:43 999 MLS/HR Rocuronium [place] (Zemuron) 50 mg STK-MED ONCE 03/05/20 12:27 03/05/20 12:27 DC Sevoflurane (Ultane) 90 ml STK-MED ONCE 03/05/20 14:30 03/05/20 14:30 DC Sodium Chloride (Normal Saline Flush) 3 ml QSHIFT PRN 03/05/20 16:15 Sodium Chloride 80 meq/Sodium Phosphate 15 mmol/ Potassium Chloride 50 meq/ Potassium Phosphate 15 mmol/ Magnesium Sulfate 15 meq/Calcium Gluconate 10 meq/ Multivitamins 10 ml/Chromium/ Copper/Manganese/ Seleni/Zn 1 ml/ Total Parenteral Nutrition/Amino Acids/Dextrose/ Fat Emulsion Intravenous 1,920 ml @ 80 mls/hr TPN CONT 03/14/20 22:00 03/15/20 21:59 Sodium Chloride 100 meq/Potassium Chloride 50 meq/ Potassium Phosphate 18 mmol/ Magnesium Sulfate 15 meq/Calcium Gluconate 10 meq/ Multivitamins 10 ml/Chromium/ Copper/Manganese/ Seleni/Zn 1 ml/ Total Parenteral Nutrition/Amino Acids/Dextrose/ Fat Emulsion Intravenous 1,920 ml @ 80 mls/hr TPN CONT 03/09/20 22:00 03/10/20 21:59 DC 03/09/20 22:00 80 MLS/HR Sodium Chloride 100 meq/Sodium Phosphate 15 mmol/ Potassium Chloride 50 meq/ Potassium Phosphate 18 mmol/ Magnesium Sulfate 15 meq/Calcium Gluconate 10 meq/ Multivitamins 10 ml/Chromium/ Copper/Manganese/ Seleni/Zn 1 ml/ Total Parenteral Nutrition/Amino Acids/Dextrose/ Fat Emulsion Intravenous 1,920 ml @ 80 mls/hr TPN CONT 03/11/20 22:00 03/12/20 21:59 DC 03/11/20 21:52 80 MLS/HR Sodium Phosphate 15 mmol/Sodium Chloride 255 ml @ 63.75 mls/ hr 1X ONCE 03/11/20 10:00 7/5/20 13:59 DC 03/11/20 12:00 63.75 MLS/HR Succinylcholine Chloride (Anectine) 200 mg STK-MED ONCE 03/05/20 10:23 03/05/20 10:23 DC Tamsulosin HCl (Flomax) 0.4 mg HS 03/02/20 23:45 03/04/20 21:03 0.4 MG Vasopressin 20 unit/Dextrose 101 ml @ 12 mls/hr CONT PRN 03/05/20 20:00 03/11/20 06:25 12 MLS/HR Lab Laboratory Tests Test 03/14/20 05:20 03/14/20 08:50 Sodium Level 141 mmol/L (136-145) Potassium Level 3.9 mmol/L (3.5-5.1) Chloride Level 110 mmol/L (98-107) Carbon Dioxide Level 27 mmol/L (21-32) Anion Gap 4 (6-14) Blood Urea Nitrogen 18 mg/dL (8-26) Creatinine 0.5 mg/dL (0.7-1.3) Estimated GFR (Cockcroft-Gault) 163.9 Glucose Level 88 mg/dL (70-99) Calcium Level 6.9 mg/dL (8.5-10.1) Phosphorus Level 3.3 mg/dL (2.6-4.7) Magnesium Level 2.0 mg/dL (1.8-2.4) Triglycerides Level 56 mg/dL (0-150) O2 Saturation 96 % (92-99) Arterial Blood pH 7.52 (7.35-7.45) Arterial Blood pCO2 at Patient Temp 35 mmHg (35-46) Arterial Blood pO2 at Patient Temp 86 mmHg (65-108) Arterial Blood HCO3 28 mmol/L (21-28) Arterial Blood Base Excess 5 mmol/L (-3-3) FiO2 50 Results All relevant outside records, renal labs, imaging studies, telemetry/EKG's were reviewed. Justicifation of Admission Dx: Justifications for Admission: Justification of Admission Dx: Yes SUZANNE KATHLEEN MD Mar 14, 2020 09:57
--- NOTE | 2020-03-14 10:32 | PDOC ---
SURGICAL PROGRESS NOTE Subjective vent support Vital Signs Vital Signs Date Time Temp Pulse Resp B/P (MAP) Pulse Ox O2 Delivery O2 Flow Rate FiO2 03/14/20 09:50 Ventilator 03/14/20 09:11 26 100 03/14/20 09:00 104 147/90 (109) 03/14/20 08:00 98.3 98.3 I&O Intake and Output 03/14/20 07:00 Intake Total 1418 ml Output Total 1700 ml Balance -282 ml Intake Oral 0 ml IV Total 1418 ml Output Urine Total 1035 ml Gastric Drainage Total 200 ml Drainage Total 465 ml General: No acute distress, Other (awake) Abdomen: Soft, Other (dressings dry, ghost in place) Labs Laboratory Tests Test 03/12/20 16:09 03/13/20 05:30 03/13/20 07:45 03/14/20 05:20 O2 Saturation 80 % (92-99) 98 % (92-99) Arterial Blood pH 7.42 (7.35-7.45) 7.45 (7.35-7.45) Arterial Blood pCO2 at Patient Temp 37 mmHg (35-46) 33 mmHg (35-46) Arterial Blood pO2 at Patient Temp 46 mmHg (65-108) 130 mmHg (65-108) Arterial Blood HCO3 23 mmol/L (21-28) 23 mmol/L (21-28) Arterial Blood Base Excess -1 mmol/L (-3-3) -1 mmol/L (-3-3) FiO2 40%+5 60 White Blood Count 11.0 x10^3/uL (4.0-11.0) Red Blood Count 4.20 x10^6/uL (4.30-5.70) Hemoglobin 11.0 g/dL (13.0-17.5) Hematocrit 33.9 % (39.0-53.0) Mean Corpuscular Volume 81 fL (79-100) Mean Corpuscular Hemoglobin 26 pg (25-35) Mean Corpuscular Hemoglobin Concent 33 g/dL (31-37) Red Cell Distribution Width 28.2 % (11.5-14.5) Platelet Count 268 x10^3/uL (140-400) Neutrophils (%) (Auto) 89 % (31-73) Lymphocytes (%) (Auto) 3 % (24-48) Monocytes (%) (Auto) 8 % (0-9) Eosinophils (%) (Auto) 0 % (0-3) Basophils (%) (Auto) 0 % (0-3) Neutrophils # (Auto) 9.7 x10^3/uL (1.8-7.7) Lymphocytes # (Auto) 0.3 x10^3/uL (1.0-4.8) Monocytes # (Auto) 0.9 x10^3/uL (0.0-1.1) Eosinophils # (Auto) 0.0 x10^3/uL (0.0-0.7) Basophils # (Auto) 0.0 x10^3/uL (0.0-0.2) Segmented Neutrophils % 92 % (35-66) Lymphocytes % 3 % (24-48) Monocytes % 5 % (0-10) Toxic Granulation Slight Platelet Estimate Adequate (ADEQUATE) Polychromasia Slight Anisocytosis Mod Sodium Level 143 mmol/L (136-145) 141 mmol/L (136-145) Potassium Level 4.1 mmol/L (3.5-5.1) 3.9 mmol/L (3.5-5.1) Chloride Level 110 mmol/L (98-107) 110 mmol/L (98-107) Carbon Dioxide Level 29 mmol/L (21-32) 27 mmol/L (21-32) Anion Gap 4 (6-14) 4 (6-14) Blood Urea Nitrogen 15 mg/dL (8-26) 18 mg/dL (8-26) Creatinine 0.5 mg/dL (0.7-1.3) 0.5 mg/dL (0.7-1.3) Estimated GFR (Cockcroft-Gault) 163.9 163.9 Glucose Level 103 mg/dL (70-99) 88 mg/dL (70-99) Calcium Level 7.0 mg/dL (8.5-10.1) 6.9 mg/dL (8.5-10.1) Phosphorus Level 3.3 mg/dL (2.6-4.7) Magnesium Level 2.0 mg/dL (1.8-2.4) Triglycerides Level 56 mg/dL (0-150) Test 03/14/20 08:50 O2 Saturation 96 % (92-99) Arterial Blood pH 7.52 (7.35-7.45) Arterial Blood pCO2 at Patient Temp 35 mmHg (35-46) Arterial Blood pO2 at Patient Temp 86 mmHg (65-108) Arterial Blood HCO3 28 mmol/L (21-28) Arterial Blood Base Excess 5 mmol/L (-3-3) FiO2 50 Laboratory Tests Test 03/14/20 05:20 03/14/20 08:50 Sodium Level 141 mmol/L (136-145) Potassium Level 3.9 mmol/L (3.5-5.1) Chloride Level 110 mmol/L (98-107) Carbon Dioxide Level 27 mmol/L (21-32) Anion Gap 4 (6-14) Blood Urea Nitrogen 18 mg/dL (8-26) Creatinine 0.5 mg/dL (0.7-1.3) Estimated GFR (Cockcroft-Gault) 163.9 Glucose Level 88 mg/dL (70-99) Calcium Level 6.9 mg/dL (8.5-10.1) Phosphorus Level 3.3 mg/dL (2.6-4.7) Magnesium Level 2.0 mg/dL (1.8-2.4) Triglycerides Level 56 mg/dL (0-150) O2 Saturation 96 % (92-99) Arterial Blood pH 7.52 (7.35-7.45) Arterial Blood pCO2 at Patient Temp 35 mmHg (35-46) Arterial Blood pO2 at Patient Temp 86 mmHg (65-108) Arterial Blood HCO3 28 mmol/L (21-28) Arterial Blood Base Excess 5 mmol/L (-3-3) FiO2 50 Problem List Problems Medical Problems: (1) Anemia Status: Acute (2) Colonic mass Status: Acute (3) Fatigue Status: Acute (4) Hypocalcemia Status: Acute (5) Nausea & vomiting Status: Acute (6) SBO (small bowel obstruction) Status: Acute Assessment/Plan continue care Justicifation of Admission Dx: Justifications for Admission: Justification of Admission Dx: Yes ISAAC LUEVANO STONE LAYOUT MARKER Mar 14, 2020 10:32
--- NOTE | 2020-03-14 10:40 | NUR ---
text page to Marv MCGUIRE. BP elevated 153/109, HR 122
--- NOTE | 2020-03-14 11:00 | NUR ---
Office called to get VEHICLE ASSEMBLER or doctor to call unit re blood pressure elevated. Text page sent out to Marv by office.
--- NOTE | 2020-03-14 11:09 | NUR ---
mobile page to Dr. Macdonald to call icu.
--- NOTE | 2020-03-14 11:25 | NUR ---
Tiffanie MCGUIRE returned phone call and came to unit to see patient. Increased Metoprolol dose to 5mg q6h. first dose given now.
[2020-03-14] MEDS ORDERED: hydrALAZINE 20 MG/ML VIAL. IVP PRN (11:30)
--- NOTE | 2020-03-14 11:30 | PDOC ---
DELANO MORAES BARN BOSS 03/14/20 1130: CARDIO Progress Notes Date and Time Date of Service 03/14/20 Time of Evaluation 1120 Subjective Subjective: Other (intubated ) Vitals Vitals Vital Signs Date Time Temp Pulse Resp B/P (MAP) Pulse Ox O2 Delivery O2 Flow Rate FiO2 03/14/20 09:50 Ventilator 03/14/20 09:11 26 100 03/14/20 09:00 104 147/90 (109) 03/14/20 08:00 98.3 98.3 Weight Weight [ ] Input and Output Intake and Output Intake and Output 03/14/20 07:00 Intake Total 1418 ml Output Total 1700 ml Balance -282 ml Intake Oral 0 ml IV Total 1418 ml Output Urine Total 1035 ml Gastric Drainage Total 200 ml Drainage Total 465 ml Laboratory Labs Laboratory Tests Test 03/14/20 05:20 03/14/20 08:50 Sodium Level 141 mmol/L (136-145) Potassium Level 3.9 mmol/L (3.5-5.1) Chloride Level 110 mmol/L (98-107) Carbon Dioxide Level 27 mmol/L (21-32) Anion Gap 4 (6-14) Blood Urea Nitrogen 18 mg/dL (8-26) Creatinine 0.5 mg/dL (0.7-1.3) Estimated GFR (Cockcroft-Gault) 163.9 Glucose Level 88 mg/dL (70-99) Calcium Level 6.9 mg/dL (8.5-10.1) Phosphorus Level 3.3 mg/dL (2.6-4.7) Magnesium Level 2.0 mg/dL (1.8-2.4) Triglycerides Level 56 mg/dL (0-150) O2 Saturation 96 % (92-99) Arterial Blood pH 7.52 (7.35-7.45) Arterial Blood pCO2 at Patient Temp 35 mmHg (35-46) Arterial Blood pO2 at Patient Temp 86 mmHg (65-108) Arterial Blood HCO3 28 mmol/L (21-28) Arterial Blood Base Excess 5 mmol/L (-3-3) FiO2 50 Microbiology Micro Microbiology 03/02/20 Urine Culture - Final, Complete Review of Systems Constitutional: yes: weakness, alert, oriented Ears/Nose/Throat: Yes: no symptom reported Eyes: Yes: no symptom reported Pulmonary: Yes no symptom reported Cardiovascular: Yes edema Gastrointestional: Yes: no symptom reported Genitourinary: Yes: no symptom reported Musculoskeletal: Yes: no symptom reported Skin: Yes no symptom reported Psychiatric/Neurological: Yes: no symptom reported Endocrine: Yes: no symptom reported Physical Exam HEENT: Neck Supple W Full Motion Chest: Symmetric LUNGS: Other (mechanical vent ) Heart: RRR (ST) Extremities: Other (anasarca ) Neurology: other (mild sedation ) Assessment Assessment 1. Obstructive colonic mass; s/p open colon resection, cholecystectomy. Path c/w metastatic adenocarcinoma 2. Acute respiratory failure, post-operative. S/p intubation. ? PNA 3. Arrhythmia; Brief period of SVT again today, otherwise, has been maintaining ST. Echo with preserved LV systolic function 4. Acute blood loss anemia, s/p transfusion. Hgb stable 5. Hypertension; mildly hypertensive today 6. Hypocalcemia; improving 7. Protein calorie malnutrition, anasarca; on TPN 8. H/o prostate CA, BPH 9. Tobaccoism Recommendations IV Metoprolol for rate control; will increase to 5mg q6 for SVT suppression Add hydralazine IV PRN Ongoing support Justicifation of Admission Dx: Justifications for Admission: Justification of Admission Dx: Yes JAMMIE HARDING MD 03/14/20 2251: CARDIO Progress Notes Plan Plan Pt. seen and examined. Agree with above MORTUARY OPERATIONS MANAGER note. Supportive care. DELANO MORAES APRN Mar 14, 2020 11:30 JAMMIE HARDING MD Mar 14, 2020 22:51
[2020-03-14] MEDS: DEXMEDETOMIDINE 400 MCG in IV NORMAL SALINE 100ML 96 ML IV PRN (11:50)
--- NOTE | 2020-03-14 13:07 | NUR ---
SS following up with discharge planning. SS reviewed pt chart and discussed with pt RN. Pt accepted at [facility], ; fax [phone]. SS phoned and faxed clinical updates to [facility]. Pt currently on vent, TPN, and IV Zosyn. SS will continue to follow for discharge planning.
--- NOTE | 2020-03-14 13:09 | PDOC ---
Objective: Objective: D/w nurse - HR and BP issues earlier, better resp-vickers, otherwise same. Vital Signs: Vital Signs Date Time Temp Pulse Resp B/P (MAP) Pulse Ox O2 Delivery O2 Flow Rate FiO2 03/14/20 12:00 Mechanical Ventilator 03/14/20 12:00 98.2 115 30 158/95 (116) 100 98.2 Labs: Laboratory Tests Test 03/14/20 05:20 03/14/20 08:50 Sodium Level 141 mmol/L Potassium Level 3.9 mmol/L Chloride Level 110 mmol/L Carbon Dioxide Level 27 mmol/L Anion Gap 4 Blood Urea Nitrogen 18 mg/dL Creatinine 0.5 mg/dL Estimated GFR (Cockcroft-Gault) 163.9 Glucose Level 88 mg/dL Calcium Level 6.9 mg/dL Phosphorus Level 3.3 mg/dL Magnesium Level 2.0 mg/dL Triglycerides Level 56 mg/dL O2 Saturation 96 % Arterial Blood pH 7.52 Arterial Blood pCO2 at Patient Temp 35 mmHg Arterial Blood pO2 at Patient Temp 86 mmHg Arterial Blood HCO3 28 mmol/L Arterial Blood Base Excess 5 mmol/L FiO2 50 PE: GEN: intubated - Dr. Parham present LUNGS: vent/clear HEART: tachycardic ABD: soft NEURO/PSYCH: awake on Precedex, mittens A/P: Colon cancer s/p resection Resp failure, arrhythmia -- Supportive care. Justicifation of Admission Dx: Justifications for Admission: Justification of Admission Dx: Yes LONG RIOS Mar 14, 2020 13:09
[2020-03-14] MEDS: TAMSULOSIN 0.4 MG CAP.ER.24H. PO SCH (20:36)
[2020-03-14] MEDS ORDERED: DEXTROSE 70% IV SCH (22:00)
[2020-03-14] MEDS ORDERED: TOTAL PARENTERAL NUTRITION IV SCH (22:00)
[2020-03-14] MEDS ORDERED: [UNRECOGNIZED DRUG - OTHER] IV SCH (22:00)
[2020-03-14] MEDS ORDERED: AMINO ACID IV SCH (22:00)
[2020-03-15] VITALS (24 sets, daily range): BP systolic 76–138; BP diastolic 55–85
[2020-03-15] MEDS: PIPERACILLIN/TAZOBACTAM 3.375 GM in IV NORMAL SALINE 50ML 50 ML IV SCH ×4 (00:10→17:23)
[2020-03-15] MEDS: DEXMEDETOMIDINE 400 MCG in IV NORMAL SALINE 100ML 96 ML IV PRN (02:04)
[2020-03-15] MEDS: METOPROLOL TARTRATE 5 MG/5 ML VIAL. IVP SCH ×4 (05:46→18:00)
--- NOTE | 2020-03-15 05:57 | RAD ---
PORTABLE CHEST 1V INDICATION: Reason: ETT adjustment / Spl. Instructions: / History: . COMPARISON STUDY: 03/12/2020. FINDINGS: Life Support Devices: Endotracheal tube terminates 8 cm above the ceferino. Enteric tube courses into the abdomen and beyond the inferior [id number]. Left PICC. Lungs: Normal lung volume. Stable bibasilar opacities. Normal pulmonary vasculature. Pleura: Stable small left pleural effusion. Heart and Mediastinum: Stable cardiomediastinal silhouette and great vessels. Bones and Soft Tissues: Stable regional skeleton and soft tissues. IMPRESSION: 1. Life-support devices as above. 2. Stable bibasilar opacities. 3. Stable small left pleural effusion. Electronically signed by: Valentín Rosas MD (03/15/2020 5:54 AM) [facility]
[2020-03-15 06:13] LABS: BASO # 0.1 x10^3/uL (0.0-0.2); BASO % 1 % (0-3); EOS # 0.1 x10^3/uL (0.0-0.7); EOS % 1 % (0-3); HEMATOCRIT 26.9 % (39.0-53.0); HEMOGLOBIN 8.7 g/dL (13.0-17.5); LYMPH # 0.4 x10^3/uL (1.0-4.8); LYMPH % 6 % (24-48); MEAN CORPUSCULAR HEMOGLOBIN 26 pg (25-35); MEAN CORPUSCULAR HGB CONC 32 g/dL (31-37); MEAN CORPUSCULAR VOLUME 81 fL (79-100); MONO # 0.5 x10^3/uL (0.0-1.1); MONO % 8 % (0-9); NEUT # 6.1 x10^3/uL (1.8-7.7); NEUT % 84 % (31-73); PLATELET COUNT 292 x10^3/uL (140-400); RED BLOOD COUNT 3.32 x10^6/uL (4.30-5.70); RED CELL DISTRIBUTION WIDTH 27.7 % (11.5-14.5); WHITE BLOOD COUNT 7.2 x10^3/uL (4.0-11.0)
[2020-03-15 06:27] LABS: CALCIUM 6.8 mg/dL (8.5-10.1); CREATININE 0.6 mg/dL (0.7-1.3); GFR 132.8; MAGNESIUM 1.9 mg/dL (1.8-2.4); PHOSPHORUS 3.4 mg/dL (2.6-4.7)
--- NOTE | 2020-03-15 07:44 | PDOC ---
PROGRESS NOTES Chief Complaint Chief Complaint A/P: Acute respiratory failure, post-operative. S/p intubation. ? PNA Small bowel dilatation/obstruction suspicious for primary colon cancer 10.5cm mass with surrounding lymph nodes concerning for metastatic disease 10.5 cm colonic mass. Colonic mass abuts the right hepatic lobe inferior margin as well as the duodenum and anterior right kidney (extending through or deforming Gerota's fascia), suspicious for primary colon cancer. Prominent associated lymph nodes are seen, possibly metastatic Obstructing right colon cancer Dialated Appendix fatty liver dz Gallstones Microcytic Anemia Alkaline Phosphatemia Hyponatremia Mild Leukocytosis Tachycardia H/o prostate cancer in remission Severe protein calorie malnutrition LE edema - BNP of 350, no cardiac history and no symptoms of CHF. This is unlikely to be cardiac related at all. Likely likely lymphatic obstruction due to abdominal mass. Hyponatremia - likely due to poor PO intake, SERUM OSMOLALITY PENDING HYPOTENSION, POSSIBLE SEPSIS SVT - Arrhythmia; Brief period of SVT. Otherwise, has been maintaining SR/ST Acute blood loss anemia, s/p transfusion Hypocalcemia Plan NPO vent support post=op remains critically ill 38 min cc time History of Present Illness History of Present Illness Mr Claudio is a 69 yo CM hx of prostate cancer s/p radiation, HTN, prediabetes now off meds who presents with vomiting fatigue diarrhea weight loss and decreased appetite for 1 month. He went to see his PCP because over the past week he had sudden onset lower extremity edema, patient had labs drawn as outpatient and called by PCP to go to the hospital for a blood transfusion and treatment for CHF. No history of CHF. On ROS he just notes his bones feel heavy. He also notes over the past 2 months sometimes he will choke on food and vomited up. His last bowel movement was 2 days ago and it was diarrhea. He has not been able to eat very well. He just feels tired. He stopped smoking over 25 years ago and he only did smoke cigars at that time. With regard to his prostate cancer he states that he had 43 radiation treatments and had a PET scan at the end of 2019 and was told he is in remission. He has never had a colonoscopy. in ED patient found to have hb of 9.8. na 130. noted to be tachy with HR 110. Patient lives with 101 year old mom. His mother has history of stage III colon cancer diagnosed at age 76. His brother has history of prostate cancer, father of lung cancer. 03/05: To OR for open right colon resection with partial duodenal resection, duodenostomy tube, cholecystectomy w/ cholangiogram and ghost ileostomy. Returned to ICU on ventilator. Pulm consulted 03/12: SVT - cardiology consulted, resolved without intervention 03/13. off pressors, vitals better, weaning sedation and weaning vent 03/14: Failed vent wean. He is obviously confused, but attempting to self extubate with mittens on . Labs improved. AC mode with rate of 12, 500cc/40% FiO2/ PEEP of 5. Afebrile. Hb 8.7 hypotensive overnight. Vent on AC mode on wean ABG 7.36/40 4/133 on PEEP 5 FiO2 40%, extubated with me present not speaking but nodding somewhat appropriately to questions. Appears comfortable Vitals Vitals Vital Signs Date Time Temp Pulse Resp B/P (MAP) Pulse Ox O2 Delivery O2 Flow Rate FiO2 03/15/20 07:00 91 18 112/75 (87) 100 Ventilator 03/15/20 04:00 99.0 99.0 Physical Exam General: No acute distress, Other (awake) Heart: Regular rate (ST) Lungs: Clear Abdomen: Soft, Other (dressings dry, ghost in place) Extremities: Other (2+ bilateral LE pitting edema, anasarca ) Skin: No significant lesion Labs LABS Laboratory Tests Test 03/14/20 08:50 03/15/20 05:50 O2 Saturation 96 % (92-99) Arterial Blood pH 7.52 (7.35-7.45) Arterial Blood pCO2 at Patient Temp 35 mmHg (35-46) Arterial Blood pO2 at Patient Temp 86 mmHg (65-108) Arterial Blood HCO3 28 mmol/L (21-28) Arterial Blood Base Excess 5 mmol/L (-3-3) FiO2 50 White Blood Count 7.2 x10^3/uL (4.0-11.0) Red Blood Count 3.32 x10^6/uL (4.30-5.70) Hemoglobin 8.7 g/dL (13.0-17.5) Hematocrit 26.9 % (39.0-53.0) Mean Corpuscular Volume 81 fL (79-100) Mean Corpuscular Hemoglobin 26 pg (25-35) Mean Corpuscular Hemoglobin Concent 32 g/dL (31-37) Red Cell Distribution Width 27.7 % (11.5-14.5) Platelet Count 292 x10^3/uL (140-400) Neutrophils (%) (Auto) 84 % (31-73) Lymphocytes (%) (Auto) 6 % (24-48) Monocytes (%) (Auto) 8 % (0-9) Eosinophils (%) (Auto) 1 % (0-3) Basophils (%) (Auto) 1 % (0-3) Neutrophils # (Auto) 6.1 x10^3/uL (1.8-7.7) Lymphocytes # (Auto) 0.4 x10^3/uL (1.0-4.8) Monocytes # (Auto) 0.5 x10^3/uL (0.0-1.1) Eosinophils # (Auto) 0.1 x10^3/uL (0.0-0.7) Basophils # (Auto) 0.1 x10^3/uL (0.0-0.2) Sodium Level 140 mmol/L (136-145) Potassium Level 4.0 mmol/L (3.5-5.1) Chloride Level 108 mmol/L (98-107) Carbon Dioxide Level 28 mmol/L (21-32) Anion Gap 4 (6-14) Blood Urea Nitrogen 18 mg/dL (8-26) Creatinine 0.6 mg/dL (0.7-1.3) Estimated GFR (Cockcroft-Gault) 132.8 Glucose Level 107 mg/dL (70-99) Calcium Level 6.8 mg/dL (8.5-10.1) Phosphorus Level 3.4 mg/dL (2.6-4.7) Magnesium Level 1.9 mg/dL (1.8-2.4) Assessment and Plan Assessmemt and Plan Problems Medical Problems: (1) Anemia Status: Acute (2) Colonic mass Status: Acute (3) Fatigue Status: Acute (4) Hypocalcemia Status: Acute (5) Nausea & vomiting Status: Acute (6) SBO (small bowel obstruction) Status: Acute Comment Review of Relevant I have reviewed the following items radhames (where applicable) has been applied. Labs Laboratory Tests Test 03/13/20 07:45 03/14/20 05:20 03/14/20 08:50 03/15/20 05:50 O2 Saturation 98 % (92-99) 96 % (92-99) Arterial Blood pH 7.45 (7.35-7.45) 7.52 (7.35-7.45) Arterial Blood pCO2 at Patient Temp 33 mmHg (35-46) 35 mmHg (35-46) Arterial Blood pO2 at Patient Temp 130 mmHg (65-108) 86 mmHg (65-108) Arterial Blood HCO3 23 mmol/L (21-28) 28 mmol/L (21-28) Arterial Blood Base Excess -1 mmol/L (-3-3) 5 mmol/L (-3-3) FiO2 60 50 Sodium Level 141 mmol/L (136-145) 140 mmol/L (136-145) Potassium Level 3.9 mmol/L (3.5-5.1) 4.0 mmol/L (3.5-5.1) Chloride Level 110 mmol/L (98-107) 108 mmol/L (98-107) Carbon Dioxide Level 27 mmol/L (21-32) 28 mmol/L (21-32) Anion Gap 4 (6-14) 4 (6-14) Blood Urea Nitrogen 18 mg/dL (8-26) 18 mg/dL (8-26) Creatinine 0.5 mg/dL (0.7-1.3) 0.6 mg/dL (0.7-1.3) Estimated GFR (Cockcroft-Gault) 163.9 132.8 Glucose Level 88 mg/dL (70-99) 107 mg/dL (70-99) Calcium Level 6.9 mg/dL (8.5-10.1) 6.8 mg/dL (8.5-10.1) Phosphorus Level 3.3 mg/dL (2.6-4.7) 3.4 mg/dL (2.6-4.7) Magnesium Level 2.0 mg/dL (1.8-2.4) 1.9 mg/dL (1.8-2.4) Triglycerides Level 56 mg/dL (0-150) White Blood Count 7.2 x10^3/uL (4.0-11.0) Red Blood Count 3.32 x10^6/uL (4.30-5.70) Hemoglobin 8.7 g/dL (13.0-17.5) Hematocrit 26.9 % (39.0-53.0) Mean Corpuscular Volume 81 fL (79-100) Mean Corpuscular Hemoglobin 26 pg (25-35) Mean Corpuscular Hemoglobin Concent 32 g/dL (31-37) Red Cell Distribution Width 27.7 % (11.5-14.5) Platelet Count 292 x10^3/uL (140-400) Neutrophils (%) (Auto) 84 % (31-73) Lymphocytes (%) (Auto) 6 % (24-48) Monocytes (%) (Auto) 8 % (0-9) Eosinophils (%) (Auto) 1 % (0-3) Basophils (%) (Auto) 1 % (0-3) Neutrophils # (Auto) 6.1 x10^3/uL (1.8-7.7) Lymphocytes # (Auto) 0.4 x10^3/uL (1.0-4.8) Monocytes # (Auto) 0.5 x10^3/uL (0.0-1.1) Eosinophils # (Auto) 0.1 x10^3/uL (0.0-0.7) Basophils # (Auto) 0.1 x10^3/uL (0.0-0.2) Laboratory Tests Test 03/14/20 08:50 03/15/20 05:50 O2 Saturation 96 % (92-99) Arterial Blood pH 7.52 (7.35-7.45) Arterial Blood pCO2 at Patient Temp 35 mmHg (35-46) Arterial Blood pO2 at Patient Temp 86 mmHg (65-108) Arterial Blood HCO3 28 mmol/L (21-28) Arterial Blood Base Excess 5 mmol/L (-3-3) FiO2 50 White Blood Count 7.2 x10^3/uL (4.0-11.0) Red Blood Count 3.32 x10^6/uL (4.30-5.70) Hemoglobin 8.7 g/dL (13.0-17.5) Hematocrit 26.9 % (39.0-53.0) Mean Corpuscular Volume 81 fL (79-100) Mean Corpuscular Hemoglobin 26 pg (25-35) Mean Corpuscular Hemoglobin Concent 32 g/dL (31-37) Red Cell Distribution Width 27.7 % (11.5-14.5) Platelet Count 292 x10^3/uL (140-400) Neutrophils (%) (Auto) 84 % (31-73) Lymphocytes (%) (Auto) 6 % (24-48) Monocytes (%) (Auto) 8 % (0-9) Eosinophils (%) (Auto) 1 % (0-3) Basophils (%) (Auto) 1 % (0-3) Neutrophils # (Auto) 6.1 x10^3/uL (1.8-7.7) Lymphocytes # (Auto) 0.4 x10^3/uL (1.0-4.8) Monocytes # (Auto) 0.5 x10^3/uL (0.0-1.1) Eosinophils # (Auto) 0.1 x10^3/uL (0.0-0.7) Basophils # (Auto) 0.1 x10^3/uL (0.0-0.2) Sodium Level 140 mmol/L (136-145) Potassium Level 4.0 mmol/L (3.5-5.1) Chloride Level 108 mmol/L (98-107) Carbon Dioxide Level 28 mmol/L (21-32) Anion Gap 4 (6-14) Blood Urea Nitrogen 18 mg/dL (8-26) Creatinine 0.6 mg/dL (0.7-1.3) Estimated GFR (Cockcroft-Gault) 132.8 Glucose Level 107 mg/dL (70-99) Calcium Level 6.8 mg/dL (8.5-10.1) Phosphorus Level 3.4 mg/dL (2.6-4.7) Magnesium Level 1.9 mg/dL (1.8-2.4) Microbiology 03/02/20 Urine Culture - Final, Complete Medications Current Medications Sodium Chloride 1,000 ml @ 1,000 mls/hr 1X ONCE IV Last administered on 03/02/20at 17:05; Start 03/02/20 at 16:45; Stop 03/02/20 at 17:44; Status DC Calcium Gluconate (Calcium Gluconate) 1,000 mg 1X ONCE IVP Last administered on 03/02/20at 18:21; Start 03/02/20 at 18:15; Stop 03/02/20 at 18:18; Status DC Iohexol (Omnipaque 300 Mg/ml) 75 ml 1X ONCE IV Last administered on 03/02/20at 18:34; Start 03/02/20 at 18:30; Stop 03/02/20 at 18:31; Status DC Pantoprazole Sodium (PROTONIX VIAL for IV PUSH) 40 mg 1X ONCE IVP Last administered on 03/02/20at 18:41; Start 03/02/20 at 18:45; Stop 03/02/20 at 18:46; Status DC Sodium Chloride 1,000 ml @ 100 mls/hr 1X ONCE IV Last administered on 03/02/20at 19:04; Start 03/02/20 at 18:45; Stop 03/03/20 at 04:44; Status DC Enoxaparin Sodium (Lovenox Per Pharmacy Prophylaxis Dosing) 1 each PRN DAILY PRN MC SEE COMMENTS; Start 03/02/20 at 20:30; Status Cancel Enoxaparin Sodium (Lovenox 40mg Syringe) 40 mg Q24H SQ Last administered on 03/02/20at 23:48; Start 03/02/20 at 21:00; Stop 03/03/20 at 08:48; Status DC Tamsulosin HCl (Flomax) 0.4 mg HS PO Last administered on 03/04/20at 21:03; Start 03/02/20 at 23:45 Sodium Chloride 1,000 ml @ 100 mls/hr Q10H IV Last administered on 03/03/20at 11:07; Start 03/03/20 at 10:00; Stop 03/03/20 at 14:58; Status DC Ondansetron HCl (Zofran) 4 mg PRN Q4HRS PRN IV NAUSEA/VOMITING Last administered on 03/04/20at 22:31; Start 03/03/20 at 09:45; Stop 03/05/20 at 16:15; Status DC Acetaminophen (Tylenol Supp) 650 mg PRN Q4HRS PRN NC TEMP OVER 100.4F OR MILD PAIN; Start 03/03/20 at 09:45 Polyethylene Glycol (miraLAX PACKET) 17 gm DAILY PO Last administered on 03/04/20at 09:21; Start 03/03/20 at 10:00; Stop 03/06/20 at 10:25; Status DC Bisacodyl (Dulcolax Supp) 10 mg PRN DAILY PRN NC CONSTIPATION; Start 03/03/20 at 09:45; Stop 03/06/20 at 10:25; Status DC Bisacodyl (Dulcolax Tab) 10 mg PRN DAILY PRN PO CONSTIPATION Last administered on 03/03/20at 13:47; Start 03/03/20 at 09:45; Stop 03/06/20 at 10:25; Status DC Psyllium Hydrophilic Mucilloid (Metamucil Fiber Packet) 1 pkt QHS PO Last adm inistered on 03/04/20at 21:03; Start 03/03/20 at 21:00; Stop 03/06/20 at 10:25; Status DC Polyethylene Glycol (miraLAX PACKET) 17 gm QHS PO Last administered on 03/04/20at 21:03; Start 03/03/20 at 21:00; Stop 03/06/20 at 10:25; Status DC Docusate Sodium (Colace) 100 mg DAILY PO Last administered on 03/04/20at 09:21; Start 03/03/20 at 12:00; Stop 03/06/20 at 10:25; Status DC Amino Acids/ Glycerin/ Electrolytes 1,000 ml @ 80 mls/hr [id number] IV Last administered on 03/07/20at 02:41; Start 03/03/20 at 15:00; Stop 03/07/20 at 13:22; Status DC Furosemide (Lasix) 40 mg 1X ONCE IVP Last administered on 03/03/20at 16:48; Start 03/03/20 at 15:00; Stop 03/03/20 at 15:01; Status DC Iohexol (Omnipaque 300 Mg/ml) 75 ml 1X ONCE IV Last administered on 03/03/20at 16:33; Start 03/03/20 at 16:15; Stop 03/03/20 at 16:16; Status DC Info (CONTRAST GIVEN -- Rx MONITORING) 1 each PRN DAILY PRN MC SEE COMMENTS; Start 03/03/20 at 16:15; Stop 03/05/20 at 16:15; Status DC Bisacodyl (Dulcolax Supp) 10 mg 1X ONCE NC Last administered on 03/04/20at 12:18; Start 03/04/20 at 10:00; Stop 03/04/20 at 10:05; Status DC Cefoxitin Sodium (Mefoxin) 2 gm 1X PREOP IVP Last administered on 03/05/20at 13:09; Start 03/05/20 at 10:00; Stop 03/08/20 at 11:05; Status DC Lidocaine (Lidoderm) 1 patch DAILY TD ; Start 03/04/20 at 16:30; Status Cancel Miscellaneous (Lidoderm Patch Removal) 1 ea QHS MC ; Start 03/04/20 at 21:00; Status Cancel Ondansetron HCl (Zofran) 4 mg PRN Q6HRS PRN IVP NAUSEA/VOMITING; Start 03/05/20 at 07:15; Stop 03/05/20 at 20:00; Status DC Fentanyl Citrate (Fentanyl 2ml Vial) 25 mcg PRN Q5MIN PRN IVP MILD PAIN 1-3; Start 03/05/20 at 07:15; Stop 03/05/20 at 20:00; Status DC Fentanyl Citrate (Fentanyl 2ml Vial) 50 mcg PRN Q5MIN PRN IVP MODERATE TO SEVERE PAIN; Start 03/05/20 at 07:15; Stop 03/05/20 at 20:00; Status DC Morphine Sulfate (Morphine Sulfate) 1 mg PRN Q10MIN PRN IVP SEVERE PAIN 7-10; Start 03/05/20 at 07:15; Stop 03/05/20 at 20:00; Status DC Ringer's Solution 1,000 ml @ 30 mls/hr Q24H IV Last administered on 03/05/20at 09:59; Start 03/05/20 at 07:05; Stop 03/05/20 at 19:04; Status DC Lidocaine HCl (Xylocaine-Mpf 1% 2ml Vial) 2 ml 1X PRN PRN ID IV START; Start 03/05/20 at 07:15; Stop 03/05/20 at 20:00; Status DC Hydromorphone HCl (Dilaudid) 0.5 mg PRN Q10MIN PRN IVP SEV PAIN, Second choice; Start 03/05/20 at 07:15; Stop 03/05/20 at 20:00; Status DC Prochlorperazine Edisylate (Compazine) 5 mg PACU PRN PRN IVP NAUSEA, MRX1; Start 03/05/20 at 07:15; Stop 03/06/20 at 07:14; Status DC Pantoprazole Sodium (PROTONIX VIAL for IV PUSH) 40 mg DAILYAC IVP Last administered on 03/14/20at 08:40; Start 03/05/20 at 10:30 Propofol (Diprivan) 200 mg STK-MED ONCE IV ; Start 03/05/20 at 10:23; Stop 03/05/20 at 10:23; Status DC Lidocaine HCl (Lidocaine Pf 2% Vial) 5 ml STK-MED ONCE .ROUTE ; Start 03/05/20 at 10:23; Stop 03/05/20 at 10:23; Status DC Ondansetron HCl (Zofran) 4 mg STK-MED ONCE .ROUTE ; Start 03/05/20 at 10:23; Stop 03/05/20 at 10:23; Status DC Dexamethasone Sodium Phosphate (Decadron) 4 mg STK-MED ONCE .ROUTE ; Start 03/05/20 at 10:23; Stop 03/05/20 at 10:23; Status DC Succinylcholine Chloride (Anectine) 200 mg STK-MED ONCE .ROUTE ; Start 03/05/20 at 10:23; Stop 03/05/20 at 10:23; Status DC Rocuronium [place] (Zemuron) 50 mg STK-MED ONCE .ROUTE ; Start 03/05/20 at 10:24; Stop 03/05/20 at 10:24; Status DC Fentanyl Citrate (Fentanyl 2ml Vial) 100 mcg STK-MED ONCE .ROUTE ; Start 03/05/20 at 10:24; Stop 03/05/20 at 10:24; Status DC Iohexol (Omnipaque 300 Mg/ml) 50 ml STK-MED ONCE .ROUTE Last administered on 03/05/20at 11:43; Start 03/05/20 at 10:41; Stop 03/05/20 at 10:41; Status DC Bupivacaine HCl/ Epinephrine Bitart (Sensorcain-Epi 0.5%-1:399214 Mpf) 30 ml STK-MED ONCE .ROUTE ; Start 03/05/20 at 10:42; Stop 03/05/20 at 10:42; Status DC Phenylephrine HCl (PHENYLEPHRINE in 0.9% NACL PF) 1 mg STK-MED ONCE IV ; Start 03/05/20 at 12:13; Stop 03/05/20 at 12:14; Status DC Ephedrine Sulfate (ePHEDrine PF IN SALINE SYRINGE) 50 mg STK-MED ONCE IV ; Start 03/05/20 at 12:13; Stop 03/05/20 at 12:14; Status DC Phenylephrine HCl (Devin-Synephrine Inj) 10 mg STK-MED ONCE .ROUTE ; Start 03/05/20 at 12:15; Stop 03/05/20 at 12:15; Status DC Rocuronium [place] (Zemuron) 50 mg STK-MED ONCE .ROUTE ; Start 03/05/20 at 12:27; Stop 03/05/20 at 12:27; Status DC Cefoxitin Sodium (Mefoxin) 1 gm STK-MED ONCE IVP ; Start 03/05/20 at 12:57; Stop 03/05/20 at 12:57; Status DC Albumin Human 500 ml @ As Directed STK-MED ONCE IV ; Start 03/05/20 at 13:08; Stop 03/05/20 at 13:08; Status DC Albumin Human 500 ml @ As Directed STK-MED ONCE IV ; Start 03/05/20 at 13:13; Stop 03/05/20 at 13:14; Status DC Phenylephrine HCl (Devin-Synephrine Inj) 10 mg STK-MED ONCE .ROUTE ; Start 03/05/20 at 13:35; Stop 03/05/20 at 13:35; Status DC Phenylephrine HCl (Devin-Synephrine Inj) 10 mg STK-MED ONCE .ROUTE ; Start 03/05/20 at 13:48; Stop 03/05/20 at 13:49; Status DC Sevoflurane (Ultane) 90 ml STK-MED ONCE IH ; Start 03/05/20 at 14:30; Stop 03/05/20 at 14:30; Status DC Phenylephrine HCl (Devin-Synephrine Inj) 10 mg STK-MED ONCE .ROUTE ; Start 03/05/20 at 14:35; Stop 03/05/20 at 14:36; Status DC Midazolam HCl 100 mg/Sodium Chloride 100 ml @ 1 mls/hr CONT PRN IV SEE I/O RECORD Last administered on 03/13/20at 19:50; Start 03/05/20 at 15:15 Fentanyl Citrate 30 ml @ 2.5 mls/hr CONT PRN PRN IV PER PROTOCOL Last administ ered on 03/15/20at 02:05; Start 03/05/20 at 15:15 Naloxone HCl (Narcan) 0.4 mg PRN Q2MIN PRN IV SEE INSTRUCTIONS; Start 03/05/20 at 15:15; Stop 03/06/20 at 09:45; Status DC Sodium Chloride 1,000 ml @ 25 mls/hr Q24H IV ; Start 03/05/20 at 15:13; Stop 03/06/20 at 14:24; Status DC Norepinephrine Bitartrate 8 mg/ Dextrose 258 ml @ 15.287 mls/ hr CONT PRN IV PER PROTOCOL Last administered on 03/11/20at 18:15; Start 03/05/20 at 15:30 Enoxaparin Sodium (Lovenox 40mg Syringe) 40 mg Q24H SQ Last administered on at 08:40; Start 03/06/20 at 08:00 Sodium Chloride (Normal Saline Flush) 3 ml QSHIFT PRN IV AFTER MEDS AND BLOOD DRAWS; Start 03/05/20 at 16:15 Ringer's Solution 1,000 ml @ 100 mls/hr Q10H IV Last administered on 03/08/20at 11:19; Start 03/05/20 at 16:09; Stop 03/08/20 at 18:54; Status DC Naloxone HCl (Narcan) 0.4 mg PRN Q2MIN PRN IV SEE INSTRUCTIONS; Start 03/05/20 at 16:15 Sodium Chloride 1,000 ml @ 25 mls/hr Q24H IV ; Start 03/05/20 at 16:09; Stop 03/06/20 at 14:24; Status DC Morphine Sulfate 30 ml @ 0 mls/hr CONT PRN PRN IV PER PROTOCOL; Start 03/05/20 at 16:15; Stop 03/06/20 at 09:48; Status DC Ondansetron HCl (Zofran) 4 mg PRN Q6HRS PRN IVP NAUESA, 1ST CHOICE; Start 03/05/20 at 16:15 Piperacillin Sod/ Tazobactam Sod 3.375 gm/Sodium Chloride 50 ml @ 100 mls/hr Q6HRS IV Last administered on 03/15/20at 05:47; Start 03/05/20 at 17:00 Ringer's Solution 1,000 ml @ 999 mls/hr 1X ONCE IV Last administered on 03/05/20at 20:59; Start 03/05/20 at 20:00; Stop 03/05/20 at 21:00; Status DC Vasopressin 20 unit/Dextrose 101 ml @ 12 mls/hr CONT PRN IV SEE I/O RECORD Last administered on 03/11/20at 06:25; Start 03/05/20 at 20:00 Ringer's Solution 1,000 ml @ 999 mls/hr 1X ONCE IV Last administered on 03/06/20at 01:07; Start 03/06/20 at 01:00; Stop 03/06/20 at 02:00; Status DC Ringer's Solution 1,000 ml @ 999 mls/hr 1X ONCE IV Last administered on 03/06/20at 05:18; Start 03/06/20 at 05:00; Stop 03/06/20 at 06:00; Status DC Ringer's Solution 1,000 ml @ 999 mls/hr 1X ONCE IV Last administered on 03/06/20at 09:54; Start 03/06/20 at 09:45; Stop 03/06/20 at 10:45; Status DC Ringer's Solution 1,000 ml @ 999 mls/hr 1X ONCE IV Last administered on 03/06/20at 13:40; Start 03/06/20 at 13:45; Stop 03/06/20 at 14:45; Status DC Ringer's Solution 1,000 ml @ 999 mls/hr 1X ONCE IV Last administered on 03/06/20at 18:43; Start 03/06/20 at 18:15; Stop 03/06/20 at 19:15; Status DC Sodium Chloride 200 ml @ 50 mls/hr 1X ONCE IV Last administered on 03/07/20at 13:49; Start 03/07/20 at 13:30; Stop 03/07/20 at 17:29; Status DC Potassium Phosphate 13.6 mmol/Sodium Chloride 254.5333 ml @ 62.5 mls/hr Q4H IV Last administered on 03/08/20at 16:52; Start 03/08/20 at 08:30; Stop 03/08/20 at 20:29; Status DC Magnesium Sulfate 50 ml @ 25 mls/hr 1X ONCE IV Last administered on 03/08/20at 08:00; Start 03/08/20 at 08:00; Stop 03/08/20 at 09:59; Status DC Sodium Chloride 300 ml @ 50 mls/hr 1X ONCE IV Last administered on 03/08/20at 08:00; Start 03/08/20 at 08:00; Stop 03/08/20 at 13:59; Status DC Info (Tpn Per Pharmacy) 1 each PRN DAILY PRN MC SEE COMMENTS Last administered on 03/14/20at 07:54; Start 03/08/20 at 11:00 Sodium Chloride 100 meq/Potassium Chloride 50 meq/ Potassium Phosphate 18 mmol/ Magnesium Sulfate 15 meq/Calcium Gluconate 10 meq/ Multivitamins 10 ml/Chromium/ Copper/Manganese/ Seleni/Zn 1 ml/ Total Parenteral Nutrition/Amino Acids/Dextrose/ Fat Emulsion Intravenous 1,512 ml @ 63 mls/hr TPN CONT IV ; Start 03/08/20 at 22:00; Stop 03/08/20 at 11:31; Status DC Sodium Chloride 100 meq/Potassium Chloride 50 meq/ Potassium Phosphate 18 mmol/ Magnesium Sulfate 15 meq/Calcium Gluconate 10 meq/ Multivitamins 10 ml/Chromium/ Copper/Manganese/ Seleni/Zn 1 ml/ Total Parenteral Nutrition/Amino Acids/Dextrose/ Fat Emulsion Intravenous 1,920 ml @ 80 mls/hr TPN CONT IV Last administered on 03/08/20at 23:04; Start 03/08/20 at 22:00; Stop 03/09/20 at 21:59; Status DC Potassium Chloride/Water 100 ml @ 100 mls/hr 1X ONCE IV Last administered on 03/08/20at 15:51; Start 03/08/20 at 16:00; Stop 03/08/20 at 16:59; Status DC Sodium Chloride 100 meq/Potassium Chloride 50 meq/ Potassium Phosphate 18 mmol/ Magnesium Sulfate 15 meq/Calcium Gluconate 10 meq/ Multivitamins 10 ml/Chromium/ Copper/Manganese/ Seleni/Zn 1 ml/ Total Parenteral Nutrition/Amino Acids/Dextrose/ Fat Emulsion Intravenous 1,920 ml @ 80 mls/hr TPN CONT IV Last administered on 03/09/20at 22:00; Start 03/09/20 at 22:00; Stop 03/10/20 at 21:59; Status DC Sodium Phosphate 15 mmol/Sodium Chloride 255 ml @ 63.75 mls/ hr 1X ONCE IV Last administered on 03/10/20at 08:45; Start 03/10/20 at 09:00; Stop 03/10/20 at 12:59; Status DC Sodium Chloride 100 meq/Sodium Phosphate 15 mmol/ Potassium Chloride 50 meq/ Potassium Phosphate 18 mmol/ Magnesium Sulfate 15 meq/Calcium Gluconate 10 meq/ Multivitamins 10 ml/Chromium/ Copper/Manganese/ Seleni/Zn 1 ml/ Total Parenteral Nutrition/Amino Acids/Dextrose/ Fat Emulsion Intravenous 1,920 ml @ 80 mls/hr TPN CONT IV Last administered on 03/10/20at 21:41; Start 03/10/20 at 22:00; Stop 03/11/20 at 21:59; Status DC Sodium Phosphate 15 mmol/Sodium Chloride 255 ml @ 63.75 mls/ hr 1X ONCE IV Last administered on 03/11/20at 12:00; Start 03/11/20 at 10:00; Stop 03/11/20 at 13:59; Status DC Sodium Chloride 100 meq/Sodium Phosphate 15 mmol/ Potassium Chloride 50 meq/ Potassium Phosphate 18 mmol/ Magnesium Sulfate 15 meq/Calcium Gluconate 10 meq/ Multivitamins 10 ml/Chromium/ Copper/Manganese/ Seleni/Zn 1 ml/ Total Parenteral Nutrition/Amino Acids/Dextrose/ Fat Emulsion Intravenous 1,920 ml @ 80 mls/hr TPN CONT IV Last administered on 03/11/20at 21:52; Start 03/11/20 at 22:00; Stop 03/12/20 at 21:59; Status DC Dexmedetomidine HCl 400 mcg/ Sodium Chloride 100 ml @ 0 mls/hr CONT PRN IV SEE COMMENTS Last administered on 03/15/20at 02:04; Start 03/11/20 at 10:00 Sodium Chloride 500 ml @ 500 mls/hr 1X PRN PRN IV SEE COMMENTS; Start 03/11/20 at 10:00 Atropine Sulfate (ATROPINE 0.5mg SYRINGE) 0.5 mg PRN Q5MIN PRN IV SEE COMMENTS; Start 03/11/20 at 10:00 Calcium Gluconate (Calcium Gluconate) 1,000 mg 1X ONCE IVP Last administered on 03/11/20at 12:35; Start 03/11/20 at 12:30; Stop 03/11/20 at 12:31; Status DC Sodium Chloride 80 meq/Sodium Phosphate 15 mmol/ Potassium Chloride 50 meq/ Potassium Phosphate 15 mmol/ Magnesium Sulfate 15 meq/Calcium Gluconate 10 meq/ Multivitamins 10 ml/Chromium/ Copper/Manganese/ Seleni/Zn 1 ml/ Total Parenteral Nutrition/Amino Acids/Dextrose/ Fat Emulsion Intravenous 1,920 ml @ 80 mls/hr TPN CONT IV Last administered on 03/12/20at 22:06; Start 03/12/20 at 22:00; Stop 03/13/20 at 21:59; Status DC Metoprolol Tartrate (Lopressor Vial) 2.5 mg Q6HRS IVP Last administered on 03/14/20at 08:50; Start 03/12/20 at 12:00; Stop 03/14/20 at 11:24; Status DC Albuterol Sulfate (Ventolin Neb Soln) 2.5 mg 1X ONCE NEB Last administered on 03/13/20at 00:00; Start 03/13/20 at 00:00; Stop 03/13/20 at 00:01; Status DC Sodium Chloride 80 meq/Sodium Phosphate 15 mmol/ Potassium Chloride 50 meq/ Potassium Phosphate 15 mmol/ Magnesium Sulfate 15 meq/Calcium Gluconate 10 meq/ Multivitamins 10 ml/Chromium/ Copper/Manganese/ Seleni/Zn 1 ml/ Total Parenteral Nutrition/Amino Acids/Dextrose/ Fat Emulsion Intravenous 1,920 ml @ 80 mls/hr TPN CONT IV Last administered on 03/13/20at 22:01; Start 03/13/20 at 22:00; Stop 03/14/20 at 21:59; Status DC Albuterol/ Ipratropium (Duoneb) 3 ml RTQID NEB Last administered on 03/14/20at 20:14; Start 03/13/20 at 12:00 Sodium Chloride 80 meq/Sodium Phosphate 15 mmol/ Potassium Chloride 50 meq/ Potassium Phosphate 15 mmol/ Magnesium Sulfate 15 meq/Calcium Gluconate 10 meq/ Multivitamins 10 ml/Chromium/ Copper/Manganese/ Seleni/Zn 1 ml/ Total Parenteral Nutrition/Amino Acids/Dextrose/ Fat Emulsion Intravenous 1,920 ml @ 80 mls/hr TPN CONT IV Last administered on 03/14/20at 21:54; Start 03/14/20 at 22:00; Stop 03/15/20 at 21:59 Metoprolol Tartrate (Lopressor Vial) 5 mg Q6HRS IVP Last administered on 03/14/20at 18:25; Start 03/14/20 at 12:00 Hydralazine HCl (Apresoline Inj) 10 mg PRN Q4HRS PRN IVP ELEVATED BP, SEE COMMENTS; Start 03/14/20 at 11:30 Active Scripts Active Reported Flomax (Tamsulosin Hcl) 0.4 Mg Cap.er.24h 1 Cap PO QHS Vitals/I & O Vital Sign - Last 24 Hours 03/14/20 03/14/20 03/14/20 03/14/20 08:00 08:00 08:50 09:00 Temp 98.3 98.3 Pulse 98 113 104 Resp 20 20 B/P (MAP) 137/104 (115) 137/104 147/90 (109) Pulse Ox 100 96 O2 Delivery Ventilator Mechanical Ventilator Ventilator 03/14/20 03/14/20 03/14/20 03/14/20 09:11 09:50 10:00 11:00 Pulse 122 147 Resp 26 26 30 B/P (MAP) 153/109 (124) 158/108 (125) Pulse Ox 100 98 100 O2 Delivery Ventilator Ventilator Ventilator Ventilator 03/14/20 03/14/20 03/14/20 03/14/20 11:21 11:25 12:00 12:00 Temp 98.2 98.2 Pulse 127 115 Resp 30 B/P (MAP) 158/111 158/95 (116) Pulse Ox 99 100 O2 Delivery Ventilator Ventilator Mechanical Ventilator 03/14/20 03/14/20 03/14/20 03/14/20 13:00 14:00 15:00 15:36 Pulse 114 174 109 Resp 30 30 30 B/P (MAP) 149/90 (109) 158/95 (116) 136/91 (106) Pulse Ox 100 100 100 100 O2 Delivery Ventilator Ventilator Ventilator Ventilator 03/14/20 03/14/20 03/14/20 03/14/20 16:00 16:00 17:00 17:50 Temp 99.8 99.8 Pulse 131 127 Resp 28 28 B/P (MAP) 136/91 (106) 123/76 (92) Pulse Ox 100 100 100 O2 Delivery Mechanical Ventilator Ventilator Ventilator Ventilator 03/14/20 03/14/20 03/14/20 03/14/20 18:00 18:25 19:00 19:50 Pulse 110 177 106 Resp 28 B/P (MAP) 118/77 (91) 118/77 125/86 (99) Pulse Ox 100 100 O2 Delivery Ventilator Ventilator Mechanical Ventilator 03/14/20 03/14/20 03/14/20 03/14/20 20:00 20:14 21:00 22:00 Temp 98.7 98.7 Pulse 99 98 97 Resp 28 B/P (MAP) 126/72 (90) 118/81 (93) 129/82 (98) Pulse Ox 100 99 99 100 O2 Delivery Ventilator Ventilator Ventilator Ventilator 03/14/20 03/14/20 03/15/20 03/15/20 23:00 23:52 00:00 00:00 Pulse 103 96 Resp 28 B/P (MAP) 130/93 (105) 90/62 Pulse Ox 100 100 O2 Delivery Ventilator Ventilator Mechanical Ventilator 03/15/20 03/15/20 03/15/20 03/15/20 00:01 01:00 02:00 02:05 Temp 97.8 97.8 Pulse 93 71 74 Resp 28 28 B/P (MAP) 138/85 (102) 94/63 (73) 76/55 (62) Pulse Ox 100 100 100 100 O2 Delivery Ventilator Ventilator Ventilator Ventilator 03/15/20 03/15/20 03/15/20 03/15/20 02:15 02:38 04:00 04:00 Temp 99.0 99.0 Pulse 83 77 Resp 26 B/P (MAP) 103/71 (82) 102/62 (75) Pulse Ox 99 100 100 O2 Delivery Ventilator Ventilator Mechanical Ventilator Ventilator 03/15/20 03/15/20 03/15/20 03/15/20 04:10 05:00 05:46 06:00 Pulse 82 83 93 Resp 24 B/P (MAP) 103/63 (76) 103/63 112/75 (87) Pulse Ox 100 100 100 O2 Delivery Ventilator Ventilator Ventilator 03/15/20 07:00 Pulse 91 Resp 18 B/P (MAP) 112/75 (87) Pulse Ox 100 O2 Delivery Ventilator Intake and Output 03/14/20 03/14/20 03/15/20 15:00 23:00 07:00 Intake Total 50 ml 1180.16 ml 1086.33 ml Output Total 680 ml 1080 ml 550 ml Balance -630 ml 100.16 ml 536.33 ml Nutrition Consultation Dietary Evaluation: Recommendations by RD: Dietary education by RD, Increase Calorie Intake, PPN/TPN Comments: Continue w/TPN as ordered: 95 g AA, 225 g dextrose, 20 g lipids When appropriate, recommend TFs per following: VitalAF@10 ml/hr, increase 10 ml q8 hrs as tolerated to goal rate 55 ml/hr w/125 ml water flushes q4 hrs. When TFs infusing and tolerated at 75% goal rate (40 ml/hr) recommend stopping TPN to avoid overfeeding Expected Outcomes/Goals: New goal 03/08: TPN to meet >65% est needs while intubated - met, goal ongoing Malnutrition Findings: Food and Nutrition Intake (Mod: <75% est energy req 7days Weight Status: Appropriate Justicifation of Admission Dx: Justifications for Admission: Justification of Admission Dx: Yes RAIN CRYSTAL MD Mar 15, 2020 07:44
[2020-03-15] MEDS: IPRATRPIUM/ALBUTEROL 0.5/2.5MG 3 ML NEBU. NEB SCH ×4 (07:53→19:14)
[2020-03-15] MEDS: PANTOPRAZOLE IV PUSH 40 MG VIAL. IVP SCH (07:56)
[2020-03-15] MEDS: ENOXAPARIN 40 MG/0.4 ML SYRINGE. SQ SCH (07:56)
[2020-03-15 07:58] LABS: BASE EXCESS ABG 2 mmol/L (-3-3); HCO3 ABG 26 mmol/L (21-28); PCO2 ABG 36 mmHg (35-46); PO2 ABG 130 mmHg (65-108); SAT O2 ABG 98 % (92-99)
[2020-03-15 08:00] LABS: FIO2 ABG 40% vent
--- NOTE | 2020-03-15 08:38 | PDOC ---
PULMONARY PROGRESS NOTES Subjective Patient did well on pressure support earlier today extubated is now awake following commands but confused Vitals Vital Signs Date Time Temp Pulse Resp B/P (MAP) Pulse Ox O2 Delivery O2 Flow Rate FiO2 03/15/20 08:00 98.7 85 28 115/77 (90) 100 CPAP Trial 98.7 General: Confused Lungs: Clear Cardiovascular: S1, S2 Abdomen: Other (Dressing in place, jace drain ) Neuro Exam: Alert Extremities: No Edema Skin: Warm Labs Laboratory Tests Test 03/14/20 05:20 03/14/20 08:50 03/15/20 05:50 03/15/20 07:55 Sodium Level 141 mmol/L (136-145) 140 mmol/L (136-145) Potassium Level 3.9 mmol/L (3.5-5.1) 4.0 mmol/L (3.5-5.1) Chloride Level 110 mmol/L (98-107) 108 mmol/L (98-107) Carbon Dioxide Level 27 mmol/L (21-32) 28 mmol/L (21-32) Anion Gap 4 (6-14) 4 (6-14) Blood Urea Nitrogen 18 mg/dL (8-26) 18 mg/dL (8-26) Creatinine 0.5 mg/dL (0.7-1.3) 0.6 mg/dL (0.7-1.3) Estimated GFR (Cockcroft-Gault) 163.9 132.8 Glucose Level 88 mg/dL (70-99) 107 mg/dL (70-99) Calcium Level 6.9 mg/dL (8.5-10.1) 6.8 mg/dL (8.5-10.1) Phosphorus Level 3.3 mg/dL (2.6-4.7) 3.4 mg/dL (2.6-4.7) Magnesium Level 2.0 mg/dL (1.8-2.4) 1.9 mg/dL (1.8-2.4) Triglycerides Level 56 mg/dL (0-150) O2 Saturation 96 % (92-99) 98 % (92-99) Arterial Blood pH 7.52 (7.35-7.45) 7.47 (7.35-7.45) Arterial Blood pCO2 at Patient Temp 35 mmHg (35-46) 36 mmHg (35-46) Arterial Blood pO2 at Patient Temp 86 mmHg (65-108) 130 mmHg (65-108) Arterial Blood HCO3 28 mmol/L (21-28) 26 mmol/L (21-28) Arterial Blood Base Excess 5 mmol/L (-3-3) 2 mmol/L (-3-3) FiO2 50 40% vent White Blood Count 7.2 x10^3/uL (4.0-11.0) Red Blood Count 3.32 x10^6/uL (4.30-5.70) Hemoglobin 8.7 g/dL (13.0-17.5) Hematocrit 26.9 % (39.0-53.0) Mean Corpuscular Volume 81 fL (79-100) Mean Corpuscular Hemoglobin 26 pg (25-35) Mean Corpuscular Hemoglobin Concent 32 g/dL (31-37) Red Cell Distribution Width 27.7 % (11.5-14.5) Platelet Count 292 x10^3/uL (140-400) Neutrophils (%) (Auto) 84 % (31-73) Lymphocytes (%) (Auto) 6 % (24-48) Monocytes (%) (Auto) 8 % (0-9) Eosinophils (%) (Auto) 1 % (0-3) Basophils (%) (Auto) 1 % (0-3) Neutrophils # (Auto) 6.1 x10^3/uL (1.8-7.7) Lymphocytes # (Auto) 0.4 x10^3/uL (1.0-4.8) Monocytes # (Auto) 0.5 x10^3/uL (0.0-1.1) Eosinophils # (Auto) 0.1 x10^3/uL (0.0-0.7) Basophils # (Auto) 0.1 x10^3/uL (0.0-0.2) Laboratory Tests Test 03/14/20 08:50 03/15/20 05:50 03/15/20 07:55 O2 Saturation 96 % (92-99) 98 % (92-99) Arterial Blood pH 7.52 (7.35-7.45) 7.47 (7.35-7.45) Arterial Blood pCO2 at Patient Temp 35 mmHg (35-46) 36 mmHg (35-46) Arterial Blood pO2 at Patient Temp 86 mmHg (65-108) 130 mmHg (65-108) Arterial Blood HCO3 28 mmol/L (21-28) 26 mmol/L (21-28) Arterial Blood Base Excess 5 mmol/L (-3-3) 2 mmol/L (-3-3) FiO2 50 40% vent White Blood Count 7.2 x10^3/uL (4.0-11.0) Red Blood Count 3.32 x10^6/uL (4.30-5.70) Hemoglobin 8.7 g/dL (13.0-17.5) Hematocrit 26.9 % (39.0-53.0) Mean Corpuscular Volume 81 fL (79-100) Mean Corpuscular Hemoglobin 26 pg (25-35) Mean Corpuscular Hemoglobin Concent 32 g/dL (31-37) Red Cell Distribution Width 27.7 % (11.5-14.5) Platelet Count 292 x10^3/uL (140-400) Neutrophils (%) (Auto) 84 % (31-73) Lymphocytes (%) (Auto) 6 % (24-48) Monocytes (%) (Auto) 8 % (0-9) Eosinophils (%) (Auto) 1 % (0-3) Basophils (%) (Auto) 1 % (0-3) Neutrophils # (Auto) 6.1 x10^3/uL (1.8-7.7) Lymphocytes # (Auto) 0.4 x10^3/uL (1.0-4.8) Monocytes # (Auto) 0.5 x10^3/uL (0.0-1.1) Eosinophils # (Auto) 0.1 x10^3/uL (0.0-0.7) Basophils # (Auto) 0.1 x10^3/uL (0.0-0.2) Sodium Level 140 mmol/L (136-145) Potassium Level 4.0 mmol/L (3.5-5.1) Chloride Level 108 mmol/L (98-107) Carbon Dioxide Level 28 mmol/L (21-32) Anion Gap 4 (6-14) Blood Urea Nitrogen 18 mg/dL (8-26) Creatinine 0.6 mg/dL (0.7-1.3) Estimated GFR (Cockcroft-Gault) 132.8 Glucose Level 107 mg/dL (70-99) Calcium Level 6.8 mg/dL (8.5-10.1) Phosphorus Level 3.4 mg/dL (2.6-4.7) Magnesium Level 1.9 mg/dL (1.8-2.4) Medications Active Scripts Medications Dose Route/Sig Max Daily Dose Days Date Category Flomax (Tamsulosin Hcl) 0.4 Mg Cap.er.24h 1 Cap PO QHS 03/02/20 Reported Comments CXR 03/11/20 IMPRESSION: 1. Stable left basilar opacities and small left pleural effusion. 2. Stable life support devices. Impression . IMPRESSION: 1. Acute hypoxemic respiratory failure, expected status post surgical intervention for colonic mass. 2. Obstructing colonic cancer. 3. History of prostate cancer. 4. Severe protein malnutrition present upon admission. 5. Tobacco dependent. 6. Chronic obstructive pulmonary disease. 7. SARS-CoV-2 negative. 8. Cholelithiasis. 9. Hyponatremia. 10. Protein malnutrition, present upon admission. 11. Benign prostatic hypertrophy. 12. S/p open right colon resection, partial resection of duodenum, placement of duodenostomy tube, cholecystectomy, ghost ileostomy 13. Acute blood loss anemia 14. Respiratory alkalosis 15. Hypocalcemia-- correct calcium WNL 16. SVT 17. 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 - Lymphovascular tumor invasion present. - Metastatic carcinoma involving 1 of 14 mesocolic lymph nodes. - Tumor involvement of radial margin of posterior aspect of cecum and proximal ascending colon. - Proximal (distal ileum) and distal (ascending colon) margins of resection negative for tumor. - Hypertrophy of muscular wall of appendix with focal serosal lymphovascular tumor invasion of proximal appendix. - Omentum negative for tumor. - Serosal adhesions of colon and appendix, focal. . B. Gallbladder, open cholecystectomy: - Polypoid cholesterolosis. - Chronic cholecystitis. . C. Tissue designated "right upper quadrant": - Segments of tumor showing invasive colorectal adenocarcinoma with prominent mucinous component, moderately differentiated. . (JPM:kaila; 03/07/2020) . Surgical Pathology Cancer Case Summary Protocol posting date: February 2017 COLON AND RECTUM: Resection, Including Transanal Disk Excision of Rectal Neoplasms Procedure ___ Right colectomy Tumor Site ___ Cecum ___ Ileocecal valve ___ Right (ascending) colon Tumor Size Greatest dimension: 12.5 cm Macroscopic Tumor Perforation ___ Present Histologic Type ___ Adenocarcinoma with prominent mucinous component and with focal poorly differentiated areas Histologic Grade ___ Other: Moderately to focally poorly differentiated Tumor Extension ___ Tumor invades through the muscularis propria into pericolorectal tissue Margins Proximal Margin ___ Uninvolved by invasive carcinoma + Distance of tumor from margin: 5.4 cm Distal Margin ___ Uninvolved by invasive carcinoma + Distance of tumor from margin: 11.2 cm ___ Involved by invasive carcinoma Radial or Mesenteric Margin ___ Involved by invasive carcinoma Lymphovascular Invasion ___ Present Perineural Invasion ___ Not identified + Type of Polyp in Which Invasive Carcinoma Arose + ___ Tubulovillous adenoma Tumor Deposits ___ Not identified Regional Lymph Nodes Number of Lymph Nodes Involved: 1 Number of Lymph Nodes Examined: 14 Pathologic Stage Classification (pTNM, AJCC 8th Edition) (Note M) Primary Tumor (pT) ___ pT4b: Tumor directly invades or adheres to adjacent organs or structures Regional Lymph Nodes (pN) ___ pN1: One to three regional lymph nodes are positive (tumor in lymph nodes measuring > or = 0.2 mm), or any number of tumor deposits are present and all identifiable lymph nodes are negative + Additional Pathologic Findings + ___ None identified (JACEM:ady 03/08/2020) MBRonny 03/08/2020 0951 Local Plan . Patient extubated 03/15 Avoid sedation Patient inquiring about prognosis, informed him to talk to Dr. Goss and Dr. Michelleac IV metoprolol, MD DVT GI prophylaxis Monitor H&H Follow nephrology recs Cont. TPN for nutrition Cont. ABX DVT GI prophylaxis D/W RN and RT Total cumulative critical care time of 30 minutes reviewing data, labs, chest x-ray and formulating a plan. DOTTIE WILBURN MD Mar 15, 2020 08:38
[2020-03-15 08:54] LABS: BASE EXCESS ABG -1 mmol/L (-3-3); HCO3 ABG 24 mmol/L (21-28); PCO2 ABG 44 mmHg (35-46); PO2 ABG 133 mmHg (65-108); SAT O2 ABG 98 % (92-99)
[2020-03-15 08:59] LABS: FIO2 ABG 40% PS 5 PEEP 5
--- NOTE | 2020-03-15 09:01 | PDOC ---
SUBJECTIVE ROS Extubated , confused OBJECTIVE Vital Signs Vital Signs Date Time Temp Pulse Resp B/P (MAP) Pulse Ox O2 Delivery O2 Flow Rate FiO2 03/15/20 08:00 98.7 85 28 115/77 (90) 100 CPAP Trial 98.7 I & 0 Intake and Output 03/15/20 07:00 Intake Total 2316.49 ml Output Total 2310 ml Balance 6.49 ml IV Total 2316.49 ml Output Urine Total 1185 ml Gastric Drainage Total 330 ml Emesis 100 ml Drainage Total 695 ml PHYSICAL EXAM Physical Exam General Appearance: no apparent distress HEEN extubated Skin: warm Respiratory: decreased at bases Heart: S1S2 Abdomen: s/p Surgery Genitourinary: Booth + Neurology: awake, extubated, mildly confused Ext- 3+ LE edema (sever Hypoalbuminemia) DIAGNOSIS/ASSESSMENT Assessment & Plan Hyponatremia -resolved, Sodium normal GEORGES- Cr Normal- may not be accurate 2/2 severe malnutrition but stable Supportive care , avoid nephrotoxins HypoCalcemia- Albumin 0.8, iCa low,- replaced, Improved Replace as needed HyPhos- normal, Replace as indicated 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 S/P Open right colon resection, partial resection of duodenum, placement of du odenostomy tube, cholecystectomy with cholangiogram, ghost ileostomy Anemia- s/p PRBC Severe protein calorie malnutrition- On TPN HX of prostate cancer BPH Will sign off COMMENT/RELEVANT DATA Meds Current Medications Medications (Trade) Dose Ordered Sig/Faisal Start Time Stop Time Status Last Admin Dose Admin Acetaminophen (Tylenol Supp) 650 mg PRN Q4HRS PRN 03/03/20 09:45 Albumin Human 500 ml @ As Directed STK-MED ONCE 03/05/20 13:13 03/05/20 13:14 DC Albuterol Sulfate (Ventolin Neb Soln) 2.5 mg 1X ONCE 03/13/20 00:00 03/13/20 00:01 DC 03/13/20 00:00 2.5 MG Albuterol/ Ipratropium (Duoneb) 3 ml RTQID 03/13/20 12:00 03/15/20 07:53 3 ML Amino Acids/ Glycerin/ Electrolytes 1,000 ml @ 80 mls/hr [id number] 03/03/20 15:00 03/07/20 13:22 DC 03/07/20 02:41 80 MLS/HR Atropine Sulfate (ATROPINE 0.5mg SYRINGE) 0.5 mg PRN Q5MIN PRN 03/11/20 10:00 Bisacodyl (Dulcolax Supp) 10 mg 1X ONCE 03/04/20 10:00 03/04/20 10:05 DC 03/04/20 12:18 10 MG Bisacodyl (Dulcolax Tab) 10 mg PRN DAILY PRN 03/03/20 09:45 03/06/20 10:25 DC 03/03/20 13:47 10 MG Bupivacaine HCl/ Epinephrine Bitart (Sensorcain-Epi 0.5%-1:820288 Mpf) 30 ml STK-MED ONCE 03/05/20 10:42 03/05/20 10:42 DC Calcium Gluconate (Calcium Gluconate) 1,000 mg 1X ONCE 03/11/20 12:30 03/11/20 12:31 DC 03/11/20 12:35 1,000 MG Cefoxitin Sodium (Mefoxin) 1 gm STK-MED ONCE 03/05/20 12:57 03/05/20 12:57 DC Dexamethasone Sodium Phosphate (Decadron) 4 mg STK-MED ONCE 03/05/20 10:23 03/05/20 10:23 DC Dexmedetomidine HCl 400 mcg/ Sodium Chloride 100 ml @ 0 mls/hr CONT PRN 03/11/20 10:00 03/15/20 02:04 7.7 MLS/HR Docusate Sodium (Colace) 100 mg DAILY 03/03/20 12:00 03/06/20 10:25 DC 03/04/20 09:21 100 MG Enoxaparin Sodium (Lovenox 40mg Syringe) 40 mg Q24H 03/06/20 08:00 03/15/20 07:56 40 MG Enoxaparin Sodium (Lovenox Per Pharmacy Prophylaxis Dosing) 1 each PRN DAILY PRN 03/02/20 20:30 Cancel Ephedrine Sulfate (ePHEDrine PF IN SALINE SYRINGE) 50 mg STK-MED ONCE 03/05/20 12:13 03/05/20 12:14 DC Fentanyl Citrate 30 ml @ 2.5 mls/hr CONT PRN PRN 03/05/20 15:15 03/15/20 02:05 2.5 MLS/HR Fentanyl Citrate (Fentanyl 2ml Vial) 100 mcg STK-MED ONCE 03/05/20 10:24 03/05/20 10:24 DC Furosemide (Lasix) 40 mg 1X ONCE 03/03/20 15:00 03/03/20 15:01 DC 03/03/20 16:48 40 MG Hydralazine HCl (Apresoline Inj) 10 mg PRN Q4HRS PRN 03/14/20 11:30 Hydromorphone HCl (Dilaudid) 0.5 mg PRN Q10MIN PRN 03/05/20 07:15 03/05/20 20:00 DC Info (CONTRAST GIVEN -- Rx MONITORING) 1 each PRN DAILY PRN 03/03/20 16:15 03/05/20 16:15 DC Info (Tpn Per Pharmacy) 1 each PRN DAILY PRN 03/08/20 11:00 03/14/20 07:54 1 EACH Iohexol (Omnipaque 300 Mg/ml) 50 ml STK-MED ONCE 03/05/20 10:41 03/05/20 10:41 DC 03/05/20 11:43 27 ML Lidocaine (Lidoderm) 1 patch DAILY 03/04/20 16:30 Cancel Lidocaine HCl (Lidocaine Pf 2% Vial) 5 ml STK-MED ONCE 03/05/20 10:23 03/05/20 10:23 DC Lidocaine HCl (Xylocaine-Mpf 1% 2ml Vial) 2 ml 1X PRN PRN 03/05/20 07:15 03/05/20 20:00 DC Magnesium Sulfate 50 ml @ 25 mls/hr 1X ONCE 03/08/20 08:00 03/08/20 09:59 DC 03/08/20 08:00 25 MLS/HR Metoprolol Tartrate (Lopressor Vial) 5 mg Q6HRS 03/14/20 12:00 03/14/20 18:25 5 MG Midazolam HCl 100 mg/Sodium Chloride 100 ml @ 1 mls/hr CONT PRN 03/05/20 15:15 03/13/20 19:50 7 MLS/HR Miscellaneous (Lidoderm Patch Removal) 1 ea QHS 03/04/20 21:00 Cancel Morphine Sulfate 30 ml @ 0 mls/hr CONT PRN PRN 03/05/20 16:15 03/06/20 09:48 DC Morphine Sulfate (Morphine Sulfate) 1 mg PRN Q10MIN PRN 03/05/20 07:15 03/05/20 20:00 DC Naloxone HCl (Narcan) 0.4 mg PRN Q2MIN PRN 03/05/20 16:15 Norepinephrine Bitartrate 8 mg/ Dextrose 258 ml @ 15.287 mls/ hr CONT PRN 03/05/20 15:30 03/11/20 18:15 15.287 MLS/HR Ondansetron HCl (Zofran) 4 mg PRN Q6HRS PRN 03/05/20 16:15 Pantoprazole Sodium (PROTONIX VIAL for IV PUSH) 40 mg DAILYAC 03/05/20 10:30 03/15/20 07:56 40 MG Phenylephrine HCl (Devin-Synephrine Inj) 10 mg STK-MED ONCE 03/05/20 14:35 03/05/20 14:36 DC Phenylephrine HCl (PHENYLEPHRINE in 0.9% NACL PF) 1 mg STK-MED ONCE 03/05/20 12:13 03/05/20 12:14 DC Piperacillin Sod/ Tazobactam Sod 3.375 gm/Sodium Chloride 50 ml @ 100 mls/hr Q6HRS 03/05/20 17:00 03/15/20 05:47 100 MLS/HR Polyethylene Glycol (miraLAX PACKET) 17 gm QHS 03/03/20 21:00 03/06/20 10:25 DC 03/04/20 21:03 17 GM Potassium Chloride/Water 100 ml @ 100 mls/hr 1X ONCE 03/08/20 16:00 03/08/20 16:59 DC 03/08/20 15:51 100 MLS/HR Potassium Phosphate 13.6 mmol/Sodium Chloride 254.5333 ml @ 62.5 mls/hr Q4H 03/08/20 08:30 03/08/20 20:29 DC 03/08/20 16:52 62.5 MLS/HR Prochlorperazine Edisylate (Compazine) 5 mg PACU PRN PRN 03/05/20 07:15 03/06/20 07:14 DC Propofol (Diprivan) 200 mg STK-MED ONCE 03/05/20 10:23 6/29/20 10:23 DC Psyllium Hydrophilic Mucilloid (Metamucil Fiber Packet) 1 pkt QHS 03/03/20 21:00 03/06/20 10:25 DC 03/04/20 21:03 1 PKT Ringer's Solution 1,000 ml @ 999 mls/hr 1X ONCE 03/06/20 18:15 03/06/20 19:15 DC 03/06/20 18:43 999 MLS/HR Rocuronium [place] (Zemuron) 50 mg STK-MED ONCE 03/05/20 12:27 03/05/20 12:27 DC Sevoflurane (Ultane) 90 ml STK-MED ONCE 03/05/20 14:30 03/05/20 14:30 DC Sodium Chloride (Normal Saline Flush) 3 ml QSHIFT PRN 03/05/20 16:15 Sodium Chloride 80 meq/Sodium Phosphate 15 mmol/ Potassium Chloride 50 meq/ Potassium Phosphate 15 mmol/ Magnesium Sulfate 15 meq/Calcium Gluconate 10 meq/ Multivitamins 10 ml/Chromium/ Copper/Manganese/ Seleni/Zn 1 ml/ Total Parenteral Nutrition/Amino Acids/Dextrose/ Fat Emulsion Intravenous 1,920 ml @ 80 mls/hr TPN CONT 03/14/20 22:00 03/15/20 21:59 03/14/20 21:54 80 MLS/HR Sodium Chloride 100 meq/Potassium Chloride 50 meq/ Potassium Phosphate 18 mmol/ Magnesium Sulfate 15 meq/Calcium Gluconate 10 meq/ Multivitamins 10 ml/Chromium/ Copper/Manganese/ Seleni/Zn 1 ml/ Total Parenteral Nutrition/Amino Acids/Dextrose/ Fat Emulsion Intravenous 1,920 ml @ 80 mls/hr TPN CONT 03/09/20 22:00 03/10/20 21:59 DC 03/09/20 22:00 80 MLS/HR Sodium Chloride 100 meq/Sodium Phosphate 15 mmol/ Potassium Chloride 50 meq/ Potassium Phosphate 18 mmol/ Magnesium Sulfate 15 meq/Calcium Gluconate 10 meq/ Multivitamins 10 ml/Chromium/ Copper/Manganese/ Seleni/Zn 1 ml/ Total Parenteral Nutrition/Amino Acids/Dextrose/ Fat Emulsion Intravenous 1,920 ml @ 80 mls/hr TPN CONT 03/11/20 22:00 03/12/20 21:59 DC 03/11/20 21:52 80 MLS/HR Sodium Phosphate 15 mmol/Sodium Chloride 255 ml @ 63.75 mls/ hr 1X ONCE 03/11/20 10:00 03/11/20 13:59 DC 03/11/20 12:00 63.75 MLS/HR Succinylcholine Chloride (Anectine) 200 mg STK-MED ONCE 03/05/20 10:23 03/05/20 10:23 DC Tamsulosin HCl (Flomax) 0.4 mg HS 03/02/20 23:45 03/04/20 21:03 0.4 MG Vasopressin 20 unit/Dextrose 101 ml @ 12 mls/hr CONT PRN 03/05/20 20:00 03/11/20 06:25 12 MLS/HR Lab Laboratory Tests Test 03/15/20 05:50 03/15/20 07:55 03/15/20 08:46 White Blood Count 7.2 x10^3/uL (4.0-11.0) Red Blood Count 3.32 x10^6/uL (4.30-5.70) Hemoglobin 8.7 g/dL (13.0-17.5) Hematocrit 26.9 % (39.0-53.0) Mean Corpuscular Volume 81 fL (79-100) Mean Corpuscular Hemoglobin 26 pg (25-35) Mean Corpuscular Hemoglobin Concent 32 g/dL (31-37) Red Cell Distribution Width 27.7 % (11.5-14.5) Platelet Count 292 x10^3/uL (140-400) Neutrophils (%) (Auto) 84 % (31-73) Lymphocytes (%) (Auto) 6 % (24-48) Monocytes (%) (Auto) 8 % (0-9) Eosinophils (%) (Auto) 1 % (0-3) Basophils (%) (Auto) 1 % (0-3) Neutrophils # (Auto) 6.1 x10^3/uL (1.8-7.7) Lymphocytes # (Auto) 0.4 x10^3/uL (1.0-4.8) Monocytes # (Auto) 0.5 x10^3/uL (0.0-1.1) Eosinophils # (Auto) 0.1 x10^3/uL (0.0-0.7) Basophils # (Auto) 0.1 x10^3/uL (0.0-0.2) Sodium Level 140 mmol/L (136-145) Potassium Level 4.0 mmol/L (3.5-5.1) Chloride Level 108 mmol/L (98-107) Carbon Dioxide Level 28 mmol/L (21-32) Anion Gap 4 (6-14) Blood Urea Nitrogen 18 mg/dL (8-26) Creatinine 0.6 mg/dL (0.7-1.3) Estimated GFR (Cockcroft-Gault) 132.8 Glucose Level 107 mg/dL (70-99) Calcium Level 6.8 mg/dL (8.5-10.1) Phosphorus Level 3.4 mg/dL (2.6-4.7) Magnesium Level 1.9 mg/dL (1.8-2.4) O2 Saturation 98 % (92-99) 98 % (92-99) Arterial Blood pH 7.47 (7.35-7.45) 7.36 (7.35-7.45) Arterial Blood pCO2 at Patient Temp 36 mmHg (35-46) 44 mmHg (35-46) Arterial Blood pO2 at Patient Temp 130 mmHg (65-108) 133 mmHg (65-108) Arterial Blood HCO3 26 mmol/L (21-28) 24 mmol/L (21-28) Arterial Blood Base Excess 2 mmol/L (-3-3) -1 mmol/L (-3-3) FiO2 40% vent 40% ps 5 peep 5 Results All relevant outside records, renal labs, imaging studies, telemetry/EKG's were reviewed. Justicifation of Admission Dx: Justifications for Admission: Justification of Admission Dx: Yes SUZANNE KATHLEEN MD Mar 15, 2020 09:01
--- NOTE | 2020-03-15 09:23 | NUR ---
Patient alert and following commands upon first assessment. SBT started at 0800 with a pressure support of 5. Repeat ABG drawn at 0845, notified Dr. Delarosa of results, order received to extubate. Patient was extubated and originally placed on 3L, was titrated down to 2L. VSS. Patient is confused, able to be reoriented and redirected. So far patient is not pulling at lines/drains, mitts are off patient but the curtain is open and is easily seen from nurses station.
--- NOTE | 2020-03-15 09:47 | PDOC ---
Subjective: Subjective: "I gave that woman my heart." Objective: Objective: D/w nurse - extubated this morning, some confusion, remains on TPN. Oncology consult pending. Vital Signs: Vital Signs Date Time Temp Pulse Resp B/P (MAP) Pulse Ox O2 Delivery O2 Flow Rate FiO2 03/15/20 09:07 98 Nasal Cannula 2.0 03/15/20 09:00 78 26 125/80 (95) 03/15/20 08:00 98.7 98.7 Labs: Laboratory Tests Test 03/15/20 05:50 03/15/20 07:55 03/15/20 08:46 White Blood Count 7.2 x10^3/uL Red Blood Count 3.32 x10^6/uL Hemoglobin 8.7 g/dL Hematocrit 26.9 % Mean Corpuscular Volume 81 fL Mean Corpuscular Hemoglobin 26 pg Mean Corpuscular Hemoglobin Concent 32 g/dL Red Cell Distribution Width 27.7 % Platelet Count 292 x10^3/uL Neutrophils (%) (Auto) 84 % Lymphocytes (%) (Auto) 6 % Monocytes (%) (Auto) 8 % Eosinophils (%) (Auto) 1 % Basophils (%) (Auto) 1 % Neutrophils # (Auto) 6.1 x10^3/uL Lymphocytes # (Auto) 0.4 x10^3/uL Monocytes # (Auto) 0.5 x10^3/uL Eosinophils # (Auto) 0.1 x10^3/uL Basophils # (Auto) 0.1 x10^3/uL Sodium Level 140 mmol/L Potassium Level 4.0 mmol/L Chloride Level 108 mmol/L Carbon Dioxide Level 28 mmol/L Anion Gap 4 Blood Urea Nitrogen 18 mg/dL Creatinine 0.6 mg/dL Estimated GFR (Cockcroft-Gault) 132.8 Glucose Level 107 mg/dL Calcium Level 6.8 mg/dL Phosphorus Level 3.4 mg/dL Magnesium Level 1.9 mg/dL O2 Saturation 98 % 98 % Arterial Blood pH 7.47 7.36 Arterial Blood pCO2 at Patient Temp 36 mmHg 44 mmHg Arterial Blood pO2 at Patient Temp 130 mmHg 133 mmHg Arterial Blood HCO3 26 mmol/L 24 mmol/L Arterial Blood Base Excess 2 mmol/L -1 mmol/L FiO2 40% vent 40% ps 5 peep 5 Imaging: CXR 03/15 IMPRESSION: 1. Life-support devices as above. 2. Stable bibasilar opacities. 3. Stable small left pleural effusion. PE: GEN: appears chronically ill LUNGS: NC, clear HEART: RRR ABD: soft NEURO/PSYCH: confused A/P: Colon cancer s/p resection Resp failure - extubated -- Continue supportive care. Justicifation of Admission Dx: Justifications for Admission: Justification of Admission Dx: Yes LONG RIOS Mar 15, 2020 09:47
--- NOTE | 2020-03-15 10:28 | NUR ---
Unsure if consult was called to Dr. Beckett, called the answering service and left a message with routine consult, awaiting call back.
--- NOTE | 2020-03-15 10:58 | PDOC ---
SURGICAL PROGRESS NOTE Subjective extubated confusion Vital Signs Vital Signs Date Time Temp Pulse Resp B/P (MAP) Pulse Ox O2 Delivery O2 Flow Rate FiO2 03/15/20 10:00 62 24 87/61 (70) 98 Nasal Cannula 2.0 03/15/20 08:00 98.7 98.7 I&O Intake and Output 03/15/20 07:00 Intake Total 2316.49 ml Output Total 2310 ml Balance 6.49 ml IV Total 2316.49 ml Output Urine Total 1185 ml Gastric Drainage Total 330 ml Emesis 100 ml Drainage Total 695 ml PATIENT HAS A DOZIER: Yes General: Cooperative, Other (confusion) HEENT: Other (NG in place) Abdomen: Soft, Other (drains in place) Labs Laboratory Tests Test 03/14/20 05:20 03/14/20 08:50 03/15/20 05:50 03/15/20 07:55 Sodium Level 141 mmol/L (136-145) 140 mmol/L (136-145) Potassium Level 3.9 mmol/L (3.5-5.1) 4.0 mmol/L (3.5-5.1) Chloride Level 110 mmol/L (98-107) 108 mmol/L (98-107) Carbon Dioxide Level 27 mmol/L (21-32) 28 mmol/L (21-32) Anion Gap 4 (6-14) 4 (6-14) Blood Urea Nitrogen 18 mg/dL (8-26) 18 mg/dL (8-26) Creatinine 0.5 mg/dL (0.7-1.3) 0.6 mg/dL (0.7-1.3) Estimated GFR (Cockcroft-Gault) 163.9 132.8 Glucose Level 88 mg/dL (70-99) 107 mg/dL (70-99) Calcium Level 6.9 mg/dL (8.5-10.1) 6.8 mg/dL (8.5-10.1) Phosphorus Level 3.3 mg/dL (2.6-4.7) 3.4 mg/dL (2.6-4.7) Magnesium Level 2.0 mg/dL (1.8-2.4) 1.9 mg/dL (1.8-2.4) Triglycerides Level 56 mg/dL (0-150) O2 Saturation 96 % (92-99) 98 % (92-99) Arterial Blood pH 7.52 (7.35-7.45) 7.47 (7.35-7.45) Arterial Blood pCO2 at Patient Temp 35 mmHg (35-46) 36 mmHg (35-46) Arterial Blood pO2 at Patient Temp 86 mmHg (65-108) 130 mmHg (65-108) Arterial Blood HCO3 28 mmol/L (21-28) 26 mmol/L (21-28) Arterial Blood Base Excess 5 mmol/L (-3-3) 2 mmol/L (-3-3) FiO2 50 40% vent White Blood Count 7.2 x10^3/uL (4.0-11.0) Red Blood Count 3.32 x10^6/uL (4.30-5.70) Hemoglobin 8.7 g/dL (13.0-17.5) Hematocrit 26.9 % (39.0-53.0) Mean Corpuscular Volume 81 fL (79-100) Mean Corpuscular Hemoglobin 26 pg (25-35) Mean Corpuscular Hemoglobin Concent 32 g/dL (31-37) Red Cell Distribution Width 27.7 % (11.5-14.5) Platelet Count 292 x10^3/uL (140-400) Neutrophils (%) (Auto) 84 % (31-73) Lymphocytes (%) (Auto) 6 % (24-48) Monocytes (%) (Auto) 8 % (0-9) Eosinophils (%) (Auto) 1 % (0-3) Basophils (%) (Auto) 1 % (0-3) Neutrophils # (Auto) 6.1 x10^3/uL (1.8-7.7) Lymphocytes # (Auto) 0.4 x10^3/uL (1.0-4.8) Monocytes # (Auto) 0.5 x10^3/uL (0.0-1.1) Eosinophils # (Auto) 0.1 x10^3/uL (0.0-0.7) Basophils # (Auto) 0.1 x10^3/uL (0.0-0.2) Test 03/15/20 08:46 O2 Saturation 98 % (92-99) Arterial Blood pH 7.36 (7.35-7.45) Arterial Blood pCO2 at Patient Temp 44 mmHg (35-46) Arterial Blood pO2 at Patient Temp 133 mmHg (65-108) Arterial Blood HCO3 24 mmol/L (21-28) Arterial Blood Base Excess -1 mmol/L (-3-3) FiO2 40% ps 5 peep 5 Laboratory Tests Test 03/15/20 05:50 03/15/20 07:55 03/15/20 08:46 White Blood Count 7.2 x10^3/uL (4.0-11.0) Red Blood Count 3.32 x10^6/uL (4.30-5.70) Hemoglobin 8.7 g/dL (13.0-17.5) Hematocrit 26.9 % (39.0-53.0) Mean Corpuscular Volume 81 fL (79-100) Mean Corpuscular Hemoglobin 26 pg (25-35) Mean Corpuscular Hemoglobin Concent 32 g/dL (31-37) Red Cell Distribution Width 27.7 % (11.5-14.5) Platelet Count 292 x10^3/uL (140-400) Neutrophils (%) (Auto) 84 % (31-73) Lymphocytes (%) (Auto) 6 % (24-48) Monocytes (%) (Auto) 8 % (0-9) Eosinophils (%) (Auto) 1 % (0-3) Basophils (%) (Auto) 1 % (0-3) Neutrophils # (Auto) 6.1 x10^3/uL (1.8-7.7) Lymphocytes # (Auto) 0.4 x10^3/uL (1.0-4.8) Monocytes # (Auto) 0.5 x10^3/uL (0.0-1.1) Eosinophils # (Auto) 0.1 x10^3/uL (0.0-0.7) Basophils # (Auto) 0.1 x10^3/uL (0.0-0.2) Sodium Level 140 mmol/L (136-145) Potassium Level 4.0 mmol/L (3.5-5.1) Chloride Level 108 mmol/L (98-107) Carbon Dioxide Level 28 mmol/L (21-32) Anion Gap 4 (6-14) Blood Urea Nitrogen 18 mg/dL (8-26) Creatinine 0.6 mg/dL (0.7-1.3) Estimated GFR (Cockcroft-Gault) 132.8 Glucose Level 107 mg/dL (70-99) Calcium Level 6.8 mg/dL (8.5-10.1) Phosphorus Level 3.4 mg/dL (2.6-4.7) Magnesium Level 1.9 mg/dL (1.8-2.4) O2 Saturation 98 % (92-99) 98 % (92-99) Arterial Blood pH 7.47 (7.35-7.45) 7.36 (7.35-7.45) Arterial Blood pCO2 at Patient Temp 36 mmHg (35-46) 44 mmHg (35-46) Arterial Blood pO2 at Patient Temp 130 mmHg (65-108) 133 mmHg (65-108) Arterial Blood HCO3 26 mmol/L (21-28) 24 mmol/L (21-28) Arterial Blood Base Excess 2 mmol/L (-3-3) -1 mmol/L (-3-3) FiO2 40% vent 40% ps 5 peep 5 Problem List Problems Medical Problems: (1) Anemia Status: Acute (2) Colonic mass Status: Acute (3) Fatigue Status: Acute (4) Hypocalcemia Status: Acute (5) Nausea & vomiting Status: Acute (6) SBO (small bowel obstruction) Status: Acute Assessment/Plan continue NG Justicifation of Admission Dx: Justifications for Admission: Justification of Admission Dx: Yes ISAAC LUEVANO APRN Mar 15, 2020 10:58
--- NOTE | 2020-03-15 11:53 | NUR ---
SS following up with discharge planning. SS reviewed pt chart and discussed with pt RN. Pt extubated today and now on 2 liters nasal canula. Pt on TPN and IV Zosyn. Per RN, pt very confused. Pt accepted at [facility], ; fax [phone]. SS will continue to follow for discharge planning.
[2020-03-15] MEDS: TPN PER PHARMACY MC PRN (12:12)
--- NOTE | 2020-03-15 12:19 | NUR ---
Pharmacy TPN Dosing Note S: FABIANO HELLER is a 69 year old M Currently receiving Central Continuous TPN started 03/08/20 B:Pertinent PMH: NPO/SBO Height: 6 feet, 3 inches Weight: 88.0 kg Current diet: NPO LABS: Sodium: 140 Potassium: 4 Chloride: 108 Calcium: 6.8 Corrected Calcium: 9.36 Magnesium: 1.9 CO2: 28 SCr: 0.6 Glucose: 107 Albumin: 0.8 AST: 16 ALT: 15 TPN FORMULA: TPN TYPE: Central Continuous AMINO ACIDS: 80 gm DEXTROSE: 250 gm LIPIDS: 20 gm SODIUM CHLORIDE: 80 mEq SODIUM ACETATE: - mEq SODIUM PHOSPHATE: 15 mmol POTASSIUM CHLORIDE: 50 mEq POTASSIUM ACETATE: - mEq POTASSIUM PHOSPHATE: 15 mmol MAGNESIUM: 15 mEq CALCIUM: 10 mEq INSULIN: - units MULTIPLE VITAMIN: 10 ml TRACE ELEMENTS: 1 ml ml(s) TPN PLAN: -Patient now extubated. Macros adjusted to 80 g AA, 250 dextrose and [address] lipids [address]. -Chloride trending down and additional electrolytes remain WNL. No further adjustments made to TPN at this time. -BMP/phos/mag ordered with AM labs. R: Continue TPN with adjustments made to macros. Will monitor electrolytes, glucose, and tolerance to TPN. CRIS MICHAEL, [facility], 03/15/20 [id number]
--- NOTE | 2020-03-15 12:45 | PDOC ---
EDLANO MORAES [employer] 03/15/20 1245: CARDIO Progress Notes Date and Time Date of Service 03/15/20 Time of Evaluation 1210 Subjective Subjective: No Chest Pain, No shortness of breath, Other (extubated) Vitals Vitals Vital Signs Date Time Temp Pulse Resp B/P (MAP) Pulse Ox O2 Delivery O2 Flow Rate FiO2 03/15/20 12:00 98.4 82 24 97/61 (73) 98 Nasal Cannula 2.0 98.4 Weight Weight [ ] Input and Output Intake and Output Intake and Output 03/15/20 07:00 Intake Total 2316.49 ml Output Total 2310 ml Balance 6.49 ml IV Total 2316.49 ml Output Urine Total 1185 ml Gastric Drainage Total 330 ml Emesis 100 ml Drainage Total 695 ml Laboratory Labs Laboratory Tests Test 03/15/20 05:50 03/15/20 07:55 03/15/20 08:46 White Blood Count 7.2 x10^3/uL (4.0-11.0) Red Blood Count 3.32 x10^6/uL (4.30-5.70) Hemoglobin 8.7 g/dL (13.0-17.5) Hematocrit 26.9 % (39.0-53.0) Mean Corpuscular Volume 81 fL (79-100) Mean Corpuscular Hemoglobin 26 pg (25-35) Mean Corpuscular Hemoglobin Concent 32 g/dL (31-37) Red Cell Distribution Width 27.7 % (11.5-14.5) Platelet Count 292 x10^3/uL (140-400) Neutrophils (%) (Auto) 84 % (31-73) Lymphocytes (%) (Auto) 6 % (24-48) Monocytes (%) (Auto) 8 % (0-9) Eosinophils (%) (Auto) 1 % (0-3) Basophils (%) (Auto) 1 % (0-3) Neutrophils # (Auto) 6.1 x10^3/uL (1.8-7.7) Lymphocytes # (Auto) 0.4 x10^3/uL (1.0-4.8) Monocytes # (Auto) 0.5 x10^3/uL (0.0-1.1) Eosinophils # (Auto) 0.1 x10^3/uL (0.0-0.7) Basophils # (Auto) 0.1 x10^3/uL (0.0-0.2) Sodium Level 140 mmol/L (136-145) Potassium Level 4.0 mmol/L (3.5-5.1) Chloride Level 108 mmol/L (98-107) Carbon Dioxide Level 28 mmol/L (21-32) Anion Gap 4 (6-14) Blood Urea Nitrogen 18 mg/dL (8-26) Creatinine 0.6 mg/dL (0.7-1.3) Estimated GFR (Cockcroft-Gault) 132.8 Glucose Level 107 mg/dL (70-99) Calcium Level 6.8 mg/dL (8.5-10.1) Phosphorus Level 3.4 mg/dL (2.6-4.7) Magnesium Level 1.9 mg/dL (1.8-2.4) O2 Saturation 98 % (92-99) 98 % (92-99) Arterial Blood pH 7.47 (7.35-7.45) 7.36 (7.35-7.45) Arterial Blood pCO2 at Patient Temp 36 mmHg (35-46) 44 mmHg (35-46) Arterial Blood pO2 at Patient Temp 130 mmHg (65-108) 133 mmHg (65-108) Arterial Blood HCO3 26 mmol/L (21-28) 24 mmol/L (21-28) Arterial Blood Base Excess 2 mmol/L (-3-3) -1 mmol/L (-3-3) FiO2 40% vent 40% ps 5 peep 5 Microbiology Micro Microbiology 03/02/20 Urine Culture - Final, Complete Review of Systems Constitutional: yes: weakness, alert, oriented Ears/Nose/Throat: Yes: no symptom reported Eyes: Yes: no symptom reported Pulmonary: Yes no symptom reported Cardiovascular: Yes edema Gastrointestional: Yes: no symptom reported Genitourinary: Yes: no symptom reported Musculoskeletal: Yes: no symptom reported Skin: Yes no symptom reported Psychiatric/Neurological: Yes: no symptom reported Endocrine: Yes: no symptom reported Physical Exam HEENT: Neck Supple W Full Motion Chest: Symmetric LUNGS: Other (diminished bases ) Heart: RRR (SR) Extremities: Other (anasarca ) Neurology: alert, follow commands, confused Assessment Assessment 1. Obstructive colonic mass; s/p open colon resection, cholecystectomy. Path c/w metastatic adenocarcinoma 2. Acute respiratory failure, post-operative. S/p extubation this am 3. Arrhythmia; PSVT. Has been maintaining SR s/p extubation. Echo with preserved LV systolic function 4. Acute blood loss anemia, s/p transfusion. Hgb stable 5. Hypertension; low normotensive 6. Hypocalcemia 7. Protein calorie malnutrition, anasarca; on TPN 8. H/o prostate CA, BPH 9. Tobaccoism Recommendations Decrease metoprolol to 2.5mg Ongoing support Justicifation of Admission Dx: Justifications for Admission: Justification of Admission Dx: Yes JAMMIE HARDING MD 03/15/20 1835: CARDIO Progress Notes Plan Plan Patient seen and examined. Agree with above nurse practitioner note. Case discussed with nursing at bedside. Supportive care. DELANO MORAES APRN Mar 15, 2020 12:45 JAMMIE HARDING MD Mar 15, 2020 18:35
[2020-03-15] MEDS: TAMSULOSIN 0.4 MG CAP.ER.24H. PO SCH (21:00)
[2020-03-15] MEDS ORDERED: AMINO ACID IV SCH (22:00)
[2020-03-15] MEDS ORDERED: [UNRECOGNIZED DRUG - OTHER] IV SCH (22:00)
[2020-03-15] MEDS ORDERED: DEXTROSE 70% IV SCH (22:00)
[2020-03-15] MEDS ORDERED: TOTAL PARENTERAL NUTRITION IV SCH (22:00)
[2020-03-16] VITALS (14 sets, daily range): BP systolic 87–142; BP diastolic 61–89
[2020-03-16] MEDS: PIPERACILLIN/TAZOBACTAM 3.375 GM in IV NORMAL SALINE 50ML 50 ML IV SCH ×4 (05:00→17:52)
[2020-03-16] MEDS: METOPROLOL TARTRATE 5 MG/5 ML VIAL. IVP SCH ×4 (06:00→17:18)
[2020-03-16 06:25] LABS: CREATININE 0.5 mg/dL (0.7-1.3); GFR 163.9; PHOSPHORUS 3.2 mg/dL (2.6-4.7); POTASSIUM 3.5 mmol/L (3.5-5.1)
[2020-03-16] MEDS: IPRATRPIUM/ALBUTEROL 0.5/2.5MG 3 ML NEBU. NEB SCH ×4 (07:37→20:00)
[2020-03-16] MEDS: ENOXAPARIN 40 MG/0.4 ML SYRINGE. SQ SCH (08:16)
[2020-03-16] MEDS: PANTOPRAZOLE IV PUSH 40 MG VIAL. IVP SCH (08:16)
--- NOTE | 2020-03-16 08:36 | PDOC ---
PULMONARY PROGRESS NOTES Subjective Patient extubated 03/15 Up in a chair no respiratory complaint Vitals Vital Signs Date Time Temp Pulse Resp B/P (MAP) Pulse Ox O2 Delivery O2 Flow Rate FiO2 03/16/20 07:37 98 Nasal Cannula 2.0 03/16/20 06:00 100 23 111/71 (84) 03/16/20 04:00 98.7 98.7 ROS: No Nausea, No Chest Pain, No Increase Cough General: Confused Lungs: Clear Cardiovascular: S1, S2 Abdomen: Other (Dressing in place, jace drain ) Neuro Exam: Alert Extremities: No Edema Skin: Warm Labs Laboratory Tests Test 03/14/20 08:50 03/15/20 05:50 03/15/20 07:55 03/15/20 08:46 O2 Saturation 96 % (92-99) 98 % (92-99) 98 % (92-99) Arterial Blood pH 7.52 (7.35-7.45) 7.47 (7.35-7.45) 7.36 (7.35-7.45) Arterial Blood pCO2 at Patient Temp 35 mmHg (35-46) 36 mmHg (35-46) 44 mmHg (35-46) Arterial Blood pO2 at Patient Temp 86 mmHg (65-108) 130 mmHg (65-108) 133 mmHg (65-108) Arterial Blood HCO3 28 mmol/L (21-28) 26 mmol/L (21-28) 24 mmol/L (21-28) Arterial Blood Base Excess 5 mmol/L (-3-3) 2 mmol/L (-3-3) -1 mmol/L (-3-3) FiO2 50 40% vent 40% ps 5 peep 5 White Blood Count 7.2 x10^3/uL (4.0-11.0) Red Blood Count 3.32 x10^6/uL (4.30-5.70) Hemoglobin 8.7 g/dL (13.0-17.5) Hematocrit 26.9 % (39.0-53.0) Mean Corpuscular Volume 81 fL (79-100) Mean Corpuscular Hemoglobin 26 pg (25-35) Mean Corpuscular Hemoglobin Concent 32 g/dL (31-37) Red Cell Distribution Width 27.7 % (11.5-14.5) Platelet Count 292 x10^3/uL (140-400) Neutrophils (%) (Auto) 84 % (31-73) Lymphocytes (%) (Auto) 6 % (24-48) Monocytes (%) (Auto) 8 % (0-9) Eosinophils (%) (Auto) 1 % (0-3) Basophils (%) (Auto) 1 % (0-3) Neutrophils # (Auto) 6.1 x10^3/uL (1.8-7.7) Lymphocytes # (Auto) 0.4 x10^3/uL (1.0-4.8) Monocytes # (Auto) 0.5 x10^3/uL (0.0-1.1) Eosinophils # (Auto) 0.1 x10^3/uL (0.0-0.7) Basophils # (Auto) 0.1 x10^3/uL (0.0-0.2) Sodium Level 140 mmol/L (136-145) Potassium Level 4.0 mmol/L (3.5-5.1) Chloride Level 108 mmol/L (98-107) Carbon Dioxide Level 28 mmol/L (21-32) Anion Gap 4 (6-14) Blood Urea Nitrogen 18 mg/dL (8-26) Creatinine 0.6 mg/dL (0.7-1.3) Estimated GFR (Cockcroft-Gault) 132.8 Glucose Level 107 mg/dL (70-99) Calcium Level 6.8 mg/dL (8.5-10.1) Phosphorus Level 3.4 mg/dL (2.6-4.7) Magnesium Level 1.9 mg/dL (1.8-2.4) Test 03/16/20 05:00 Sodium Level 139 mmol/L (136-145) Potassium Level 3.5 mmol/L (3.5-5.1) Chloride Level 108 mmol/L (98-107) Carbon Dioxide Level 26 mmol/L (21-32) Anion Gap 5 (6-14) Blood Urea Nitrogen 16 mg/dL (8-26) Creatinine 0.5 mg/dL (0.7-1.3) Estimated GFR (Cockcroft-Gault) 163.9 Glucose Level 90 mg/dL (70-99) Calcium Level 7.0 mg/dL (8.5-10.1) Phosphorus Level 3.2 mg/dL (2.6-4.7) Magnesium Level 2.0 mg/dL (1.8-2.4) Laboratory Tests Test 03/15/20 08:46 03/16/20 05:00 O2 Saturation 98 % (92-99) Arterial Blood pH 7.36 (7.35-7.45) Arterial Blood pCO2 at Patient Temp 44 mmHg (35-46) Arterial Blood pO2 at Patient Temp 133 mmHg (65-108) Arterial Blood HCO3 24 mmol/L (21-28) Arterial Blood Base Excess -1 mmol/L (-3-3) FiO2 40% ps 5 peep 5 Sodium Level 139 mmol/L (136-145) Potassium Level 3.5 mmol/L (3.5-5.1) Chloride Level 108 mmol/L (98-107) Carbon Dioxide Level 26 mmol/L (21-32) Anion Gap 5 (6-14) Blood Urea Nitrogen 16 mg/dL (8-26) Creatinine 0.5 mg/dL (0.7-1.3) Estimated GFR (Cockcroft-Gault) 163.9 Glucose Level 90 mg/dL (70-99) Calcium Level 7.0 mg/dL (8.5-10.1) Phosphorus Level 3.2 mg/dL (2.6-4.7) Magnesium Level 2.0 mg/dL (1.8-2.4) Medications Active Scripts Medications Dose Route/Sig Max Daily Dose Days Date Category Flomax (Tamsulosin Hcl) 0.4 Mg Cap.er.24h 1 Cap PO QHS 03/02/20 Reported Comments CXR 03/11/20 IMPRESSION: 1. Stable left basilar opacities and small left pleural effusion. 2. Stable life support devices. Impression . IMPRESSION: 1. Acute hypoxemic respiratory failure, expected status post surgical intervention for colonic mass. Status post extubation 03/15 2. Obstructing colonic cancer. 3. History of prostate cancer. 4. Severe protein malnutrition present upon admission. 5. Tobacco dependent. 6. Chronic obstructive pulmonary disease. 7. SARS-CoV-2 negative. 8. Cholelithiasis. 9. Hyponatremia. 10. Protein malnutrition, present upon admission. 11. Benign prostatic hypertrophy. 12. S/p open right colon resection, partial resection of duodenum, placement of duodenostomy tube, cholecystectomy, ghost ileostomy 13. Acute blood loss anemia 14. Respiratory alkalosis 15. Hypocalcemia-- correct calcium WNL 16. SVT 17. 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 - Lymphovascular tumor invasion present. - Metastatic carcinoma involving 1 of 14 mesocolic lymph nodes. - Tumor involvement of radial margin of posterior aspect of cecum and proximal ascending colon. - Proximal (distal ileum) and distal (ascending colon) margins of resection negative for tumor. - Hypertrophy of muscular wall of appendix with focal serosal lymphovascular tumor invasion of proximal appendix. - Omentum negative for tumor. - Serosal adhesions of colon and appendix, focal. . B. Gallbladder, open cholecystectomy: - Polypoid cholesterolosis. - Chronic cholecystitis. . C. Tissue designated "right upper quadrant": - Segments of tumor showing invasive colorectal adenocarcinoma with prominent mucinous component, moderately differentiated. . (JACEM:kaila; 03/07/2020) . Surgical Pathology Cancer Case Summary Protocol posting date: February 2017 COLON AND RECTUM: Resection, Including Transanal Disk Excision of Rectal Neoplasms Procedure ___ Right colectomy Tumor Site ___ Cecum ___ Ileocecal valve ___ Right (ascending) colon Tumor Size Greatest dimension: 12.5 cm Macroscopic Tumor Perforation ___ Present Histologic Type ___ Adenocarcinoma with prominent mucinous component and with focal poorly differentiated areas Histologic Grade ___ Other: Moderately to focally poorly differentiated Tumor Extension ___ Tumor invades through the muscularis propria into pericolorectal tissue Margins Proximal Margin ___ Uninvolved by invasive carcinoma + Distance of tumor from margin: 5.4 cm Distal Margin ___ Uninvolved by invasive carcinoma + Distance of tumor from margin: 11.2 cm ___ Involved by invasive carcinoma Radial or Mesenteric Margin ___ Involved by invasive carcinoma Lymphovascular Invasion ___ Present Perineural Invasion ___ Not identified + Type of Polyp in Which Invasive Carcinoma Arose + ___ Tubulovillous adenoma Tumor Deposits ___ Not identified Regional Lymph Nodes Number of Lymph Nodes Involved: 1 Number of Lymph Nodes Examined: 14 Pathologic Stage Classification (pTNM, AJCC 8th Edition) (Note M) Primary Tumor (pT) ___ pT4b: Tumor directly invades or adheres to adjacent organs or structures Regional Lymph Nodes (pN) ___ pN1: One to three regional lymph nodes are positive (tumor in lymph nodes measuring > or = 0.2 mm), or any number of tumor deposits are present and all identifiable lymph nodes are negative + Additional Pathologic Findings + ___ None identified (JPM:pit 03/08/2020) MBR 03/08/2020 0951 Local Plan . Up to chair Speech evaluation DC NG tube Avoid sedation Patient inquiring about prognosis, informed him to talk to Dr. Goss and Dr. Talavera IV metoprolol, OR DVT GI prophylaxis Monitor H&H Follow nephrology recs Cont. TPN for nutrition Cont. ABX DVT GI prophylaxis D/W RN and RT Total cumulative critical care time of 30 minutes reviewing data, labs, chest x-ray and formulating a plan. DOTTIE WILBURN MD Mar 16, 2020 08:36
--- NOTE | 2020-03-16 08:55 | PDOC ---
PROGRESS NOTES Chief Complaint Chief Complaint A/P: Acute respiratory failure, post-operative. S/p intubation. ? PNA Small bowel dilatation/obstruction suspicious for primary colon cancer 10.5cm mass with surrounding lymph nodes concerning for metastatic disease 10.5 cm colonic mass. Colonic mass abuts the right hepatic lobe inferior margin as well as the duodenum and anterior right kidney (extending through or deforming Gerota's fascia), suspicious for primary colon cancer. Prominent associated lymph nodes are seen, possibly metastatic Obstructing right colon cancer Dialated Appendix fatty liver dz Gallstones Microcytic Anemia Alkaline Phosphatemia Hyponatremia Mild Leukocytosis Tachycardia H/o prostate cancer in remission Severe protein calorie malnutrition LE edema - BNP of 350, no cardiac history and no symptoms of CHF. This is unlikely to be cardiac related at all. Likely likely lymphatic obstruction due to abdominal mass. Hyponatremia - likely due to poor PO intake, SERUM OSMOLALITY PENDING HYPOTENSION, POSSIBLE SEPSIS SVT - Arrhythmia; Brief period of SVT. Otherwise, has been maintaining SR/ST Acute blood loss anemia, s/p transfusion Hypocalcemia Plan NPO vent support post=op remains critically ill 38 min cc time History of Present Illness History of Present Illness Mr Claudio is a 69 yo CM hx of prostate cancer s/p radiation, HTN, prediabetes now off meds who presents with vomiting fatigue diarrhea weight loss and decreased appetite for 1 month. He went to see his PCP because over the past week he had sudden onset lower extremity edema, patient had labs drawn as outpatient and called by PCP to go to the hospital for a blood transfusion and treatment for CHF. No history of CHF. On ROS he just notes his bones feel heavy. He also notes over the past 2 months sometimes he will choke on food and vomited up. His last bowel movement was 2 days ago and it was diarrhea. He has not been able to eat very well. He just feels tired. He stopped smoking over 25 years ago and he only did smoke cigars at that time. With regard to his prostate cancer he states that he had 43 radiation treatments and had a PET scan at the end of 2019 and was told he is in remission. He has never had a colonoscopy. in ED patient found to have hb of 9.8. na 130. noted to be tachy with HR 110. Patient lives with 101 year old mom. His mother has history of stage III colon cancer diagnosed at age 76. His brother has history of prostate cancer, father of lung cancer. 03/05: To OR for open right colon resection with partial duodenal resection, duodenostomy tube, cholecystectomy w/ cholangiogram and ghost ileostomy. Returned to ICU on ventilator. Pulm consulted 03/12: SVT - cardiology consulted, resolved without intervention 03/13. off pressors, vitals better, weaning sedation and weaning vent 03/14: Failed vent wean. He is obviously confused, but attempting to self extubate with mittens on . Labs improved. AC mode with rate of 12, 500cc/40% FiO2/ PEEP of 5. 03/15: Afebrile. Hb 8.7 hypotensive overnight. Vent on AC mode on wean ABG 7.36/40 4/133 on PEEP 5 FiO2 40%, extubated with me present not speaking but nodding somewhat appropriately to questions. Appears comfortable On O2. Still on TPN, multiple BM yesterday and overnight. He is a bit confused. Legs much more swollen. Labs stable. Plan: Albumin and Lasix x1, elevate legs NGT per surgery, diet per surgery Ok to downgrade to CVC Vitals Vitals Vital Signs Date Time Temp Pulse Resp B/P (MAP) Pulse Ox O2 Delivery O2 Flow Rate FiO2 03/16/20 07:37 98 Nasal Cannula 2.0 03/16/20 06:00 100 23 111/71 (84) 03/16/20 04:00 98.7 98.7 Physical Exam General: Cooperative, Other (confusion) Heart: Regular rate (ST) Lungs: Clear Abdomen: Soft, Other (drains in place) Extremities: Other (2+ bilateral LE pitting edema, anasarca ) Skin: No significant lesion Labs LABS Laboratory Tests Test 03/16/20 05:00 Sodium Level 139 mmol/L (136-145) Potassium Level 3.5 mmol/L (3.5-5.1) Chloride Level 108 mmol/L (98-107) Carbon Dioxide Level 26 mmol/L (21-32) Anion Gap 5 (6-14) Blood Urea Nitrogen 16 mg/dL (8-26) Creatinine 0.5 mg/dL (0.7-1.3) Estimated GFR (Cockcroft-Gault) 163.9 Glucose Level 90 mg/dL (70-99) Calcium Level 7.0 mg/dL (8.5-10.1) Phosphorus Level 3.2 mg/dL (2.6-4.7) Magnesium Level 2.0 mg/dL (1.8-2.4) Assessment and Plan Assessmemt and Plan Problems Medical Problems: (1) Anemia Status: Acute (2) Colonic mass Status: Acute (3) Fatigue Status: Acute (4) Hypocalcemia Status: Acute (5) Nausea & vomiting Status: Acute (6) SBO (small bowel obstruction) Status: Acute Comment Review of Relevant I have reviewed the following items radhames (where applicable) has been applied. Labs Laboratory Tests Test 03/15/20 05:50 03/15/20 07:55 03/15/20 08:46 03/16/20 05:00 White Blood Count 7.2 x10^3/uL (4.0-11.0) Red Blood Count 3.32 x10^6/uL (4.30-5.70) Hemoglobin 8.7 g/dL (13.0-17.5) Hematocrit 26.9 % (39.0-53.0) Mean Corpuscular Volume 81 fL (79-100) Mean Corpuscular Hemoglobin 26 pg (25-35) Mean Corpuscular Hemoglobin Concent 32 g/dL (31-37) Red Cell Distribution Width 27.7 % (11.5-14.5) Platelet Count 292 x10^3/uL (140-400) Neutrophils (%) (Auto) 84 % (31-73) Lymphocytes (%) (Auto) 6 % (24-48) Monocytes (%) (Auto) 8 % (0-9) Eosinophils (%) (Auto) 1 % (0-3) Basophils (%) (Auto) 1 % (0-3) Neutrophils # (Auto) 6.1 x10^3/uL (1.8-7.7) Lymphocytes # (Auto) 0.4 x10^3/uL (1.0-4.8) Monocytes # (Auto) 0.5 x10^3/uL (0.0-1.1) Eosinophils # (Auto) 0.1 x10^3/uL (0.0-0.7) Basophils # (Auto) 0.1 x10^3/uL (0.0-0.2) Sodium Level 140 mmol/L (136-145) 139 mmol/L (136-145) Potassium Level 4.0 mmol/L (3.5-5.1) 3.5 mmol/L (3.5-5.1) Chloride Level 108 mmol/L (98-107) 108 mmol/L (98-107) Carbon Dioxide Level 28 mmol/L (21-32) 26 mmol/L (21-32) Anion Gap 4 (6-14) 5 (6-14) Blood Urea Nitrogen 18 mg/dL (8-26) 16 mg/dL (8-26) Creatinine 0.6 mg/dL (0.7-1.3) 0.5 mg/dL (0.7-1.3) Estimated GFR (Cockcroft-Gault) 132.8 163.9 Glucose Level 107 mg/dL (70-99) 90 mg/dL (70-99) Calcium Level 6.8 mg/dL (8.5-10.1) 7.0 mg/dL (8.5-10.1) Phosphorus Level 3.4 mg/dL (2.6-4.7) 3.2 mg/dL (2.6-4.7) Magnesium Level 1.9 mg/dL (1.8-2.4) 2.0 mg/dL (1.8-2.4) O2 Saturation 98 % (92-99) 98 % (92-99) Arterial Blood pH 7.47 (7.35-7.45) 7.36 (7.35-7.45) Arterial Blood pCO2 at Patient Temp 36 mmHg (35-46) 44 mmHg (35-46) Arterial Blood pO2 at Patient Temp 130 mmHg (65-108) 133 mmHg (65-108) Arterial Blood HCO3 26 mmol/L (21-28) 24 mmol/L (21-28) Arterial Blood Base Excess 2 mmol/L (-3-3) -1 mmol/L (-3-3) FiO2 40% vent 40% ps 5 peep 5 Laboratory Tests Test 03/16/20 05:00 Sodium Level 139 mmol/L (136-145) Potassium Level 3.5 mmol/L (3.5-5.1) Chloride Level 108 mmol/L (98-107) Carbon Dioxide Level 26 mmol/L (21-32) Anion Gap 5 (6-14) Blood Urea Nitrogen 16 mg/dL (8-26) Creatinine 0.5 mg/dL (0.7-1.3) Estimated GFR (Cockcroft-Gault) 163.9 Glucose Level 90 mg/dL (70-99) Calcium Level 7.0 mg/dL (8.5-10.1) Phosphorus Level 3.2 mg/dL (2.6-4.7) Magnesium Level 2.0 mg/dL (1.8-2.4) Microbiology 03/02/20 Urine Culture - Final, Complete Medications Current Medications Sodium Chloride 1,000 ml @ 1,000 mls/hr 1X ONCE IV Last administered on 03/02/20at 17:05; Start 03/02/20 at 16:45; Stop 03/02/20 at 17:44; Status DC Calcium Gluconate (Calcium Gluconate) 1,000 mg 1X ONCE IVP Last administered on 03/02/20at 18:21; Start 03/02/20 at 18:15; Stop 03/02/20 at 18:18; Status DC Iohexol (Omnipaque 300 Mg/ml) 75 ml 1X ONCE IV Last administered on 03/02/20at 18:34; Start 03/02/20 at 18:30; Stop 03/02/20 at 18:31; Status DC Pantoprazole Sodium (PROTONIX VIAL for IV PUSH) 40 mg 1X ONCE IVP Last administered on 03/02/20at 18:41; Start 03/02/20 at 18:45; Stop 03/02/20 at 18:46; Status DC Sodium Chloride 1,000 ml @ 100 mls/hr 1X ONCE IV Last administered on 03/02/20at 19:04; Start 03/02/20 at 18:45; Stop 03/03/20 at 04:44; Status DC Enoxaparin Sodium (Lovenox Per Pharmacy Prophylaxis Dosing) 1 each PRN DAILY PRN MC SEE COMMENTS; Start 03/02/20 at 20:30; Status Cancel Enoxaparin Sodium (Lovenox 40mg Syringe) 40 mg Q24H SQ Last administered on 03/02/20at 23:48; Start 03/02/20 at 21:00; Stop 03/03/20 at 08:48; Status DC Tamsulosin HCl (Flomax) 0.4 mg HS PO Last administered on 03/04/20at 21:03; Start 03/02/20 at 23:45 Sodium Chloride 1,000 ml @ 100 mls/hr Q10H IV Last administered on 03/03/20at 11:07; Start 03/03/20 at 10:00; Stop 03/03/20 at 14:58; Status DC Ondansetron HCl (Zofran) 4 mg PRN Q4HRS PRN IV NAUSEA/VOMITING Last administered on 03/04/20at 22:31; Start 03/03/20 at 09:45; Stop 03/05/20 at 16:15; Status DC Acetaminophen (Tylenol Supp) 650 mg PRN Q4HRS PRN RI TEMP OVER 100.4F OR MILD PAIN; Start 03/03/20 at 09:45 Polyethylene Glycol (miraLAX PACKET) 17 gm DAILY PO Last administered on 03/04/20at 09:21; Start 03/03/20 at 10:00; Stop 03/06/20 at 10:25; Status DC Bisacodyl (Dulcolax Supp) 10 mg PRN DAILY PRN RI CONSTIPATION; Start 03/03/20 at 09:45; Stop 03/06/20 at 10:25; Status DC Bisacodyl (Dulcolax Tab) 10 mg PRN DAILY PRN PO CONSTIPATION Last administered on 03/03/20at 13:47; Start 03/03/20 at 09:45; Stop 03/06/20 at 10:25; Status DC Psyllium Hydrophilic Mucilloid (Metamucil Fiber Packet) 1 pkt QHS PO Last administered on 03/04/20at 21:03; Start 03/03/20 at 21:00; Stop 03/06/20 at 10:25; Status DC Polyethylene Glycol (miraLAX PACKET) 17 gm QHS PO Last administered on 03/04/20at 21:03; Start 03/03/20 at 21:00; Stop 03/06/20 at 10:25; Status DC Docusate Sodium (Colace) 100 mg DAILY PO Last administered on 03/04/20at 09:21; Start 03/03/20 at 12:00; Stop 03/06/20 at 10:25; Status DC Amino Acids/ Glycerin/ Electrolytes 1,000 ml @ 80 mls/hr [id number] IV Last administered on 03/07/20at 02:41; Start 03/03/20 at 15:00; Stop 03/07/20 at 13:22; Status DC Furosemide (Lasix) 40 mg 1X ONCE IVP Last administered on 03/03/20at 16:48; Start 03/03/20 at 15:00; Stop 03/03/20 at 15:01; Status DC Iohexol (Omnipaque 300 Mg/ml) 75 ml 1X ONCE IV Last administered on 03/03/20at 16:33; Start 03/03/20 at 16:15; Stop 03/03/20 at 16:16; Status DC Info (CONTRAST GIVEN -- Rx MONITORING) 1 each PRN DAILY PRN MC SEE COMMENTS; Start 03/03/20 at 16:15; Stop 03/05/20 at 16:15; Status DC Bisacodyl (Dulcolax Supp) 10 mg 1X ONCE RI Last administered on 03/04/20at 12:18; Start 03/04/20 at 10:00; Stop 03/04/20 at 10:05; Status DC Cefoxitin Sodium (Mefoxin) 2 gm 1X PREOP IVP Last administered on 03/05/20at 13:09; Start 03/05/20 at 10:00; Stop 03/08/20 at 11:05; Status DC Lidocaine (Lidoderm) 1 patch DAILY TD ; Start 03/04/20 at 16:30; Status Cancel Miscellaneous (Lidoderm Patch Removal) 1 ea QHS MC ; Start 03/04/20 at 21:00; Status Cancel Ondansetron HCl (Zofran) 4 mg PRN Q6HRS PRN IVP NAUSEA/VOMITING; Start 03/05/20 at 07:15; Stop 03/05/20 at 20:00; Status DC Fentanyl Citrate (Fentanyl 2ml Vial) 25 mcg PRN Q5MIN PRN IVP MILD PAIN 1-3; Start 03/05/20 at 07:15; Stop 03/05/20 at 20:00; Status DC Fentanyl Citrate (Fentanyl 2ml Vial) 50 mcg PRN Q5MIN PRN IVP MODERATE TO SEVERE PAIN; Start 03/05/20 at 07:15; Stop 03/05/20 at 20:00; Status DC Morphine Sulfate (Morphine Sulfate) 1 mg PRN Q10MIN PRN IVP SEVERE PAIN 7-10; Start 03/05/20 at 07:15; Stop 03/05/20 at 20:00; Status DC Ringer's Solution 1,000 ml @ 30 mls/hr Q24H IV Last administered on 03/05/20at 09:59; Start 03/05/20 at 07:05; Stop 03/05/20 at 19:04; Status DC Lidocaine HCl (Xylocaine-Mpf 1% 2ml Vial) 2 ml 1X PRN PRN ID IV START; Start 03/05/20 at 07:15; Stop 03/05/20 at 20:00; Status DC Hydromorphone HCl (Dilaudid) 0.5 mg PRN Q10MIN PRN IVP SEV PAIN, Second choice; Start 03/05/20 at 07:15; Stop 03/05/20 at 20:00; Status DC Prochlorperazine Edisylate (Compazine) 5 mg PACU PRN PRN IVP NAUSEA, MRX1; Start 03/05/20 at 07:15; Stop 03/06/20 at 07:14; Status DC Pantoprazole Sodium (PROTONIX VIAL for IV PUSH) 40 mg DAILYAC IVP Last administered on 03/16/20at 08:16; Start 03/05/20 at 10:30 Propofol (Diprivan) 200 mg STK-MED ONCE IV ; Start 03/05/20 at 10:23; Stop 03/05/20 at 10:23; Status DC Lidocaine HCl (Lidocaine Pf 2% Vial) 5 ml STK-MED ONCE .ROUTE ; Start 03/05/20 at 10:23; Stop 03/05/20 at 10:23; Status DC Ondansetron HCl (Zofran) 4 mg STK-MED ONCE .ROUTE ; Start 03/05/20 at 10:23; Stop 03/05/20 at 10:23; Status DC Dexamethasone Sodium Phosphate (Decadron) 4 mg STK-MED ONCE .ROUTE ; Start 03/05/20 at 10:23; Stop 03/05/20 at 10:23; Status DC Succinylcholine Chloride (Anectine) 200 mg STK-MED ONCE .ROUTE ; Start 03/05/20 at 10:23; Stop 03/05/20 at 10:23; Status DC Rocuronium Aline (Zemuron) 50 mg STK-MED ONCE .ROUTE ; Start 03/05/20 at 10:24; Stop 03/05/20 at 10:24; Status DC Fentanyl Citrate (Fentanyl 2ml Vial) 100 mcg STK-MED ONCE .ROUTE ; Start 03/05/20 at 10:24; Stop 03/05/20 at 10:24; Status DC Iohexol (Omnipaque 300 Mg/ml) 50 ml STK-MED ONCE .ROUTE Last administered on 03/05/20at 11:43; Start 03/05/20 at 10:41; Stop 03/05/20 at 10:41; Status DC Bupivacaine HCl/ Epinephrine Bitart (Sensorcain-Epi 0.5%-1:825384 Mpf) 30 ml STK-MED ONCE .ROUTE ; Start 03/05/20 at 10:42; Stop 03/05/20 at 10:42; Status DC Phenylephrine HCl (PHENYLEPHRINE in 0.9% NACL PF) 1 mg STK-MED ONCE IV ; Start 03/05/20 at 12:13; Stop 03/05/20 at 12:14; Status DC Ephedrine Sulfate (ePHEDrine PF IN SALINE SYRINGE) 50 mg STK-MED ONCE IV ; Start 03/05/20 at 12:13; Stop 03/05/20 at 12:14; Status DC Phenylephrine HCl (Devin-Synephrine Inj) 10 mg STK-MED ONCE .ROUTE ; Start 03/05/20 at 12:15; Stop 03/05/20 at 12:15; Status DC Rocuronium Aline (Zemuron) 50 mg STK-MED ONCE .ROUTE ; Start 03/05/20 at 12:27; Stop 03/05/20 at 12:27; Status DC Cefoxitin Sodium (Mefoxin) 1 gm STK-MED ONCE IVP ; Start 03/05/20 at 12:57; Stop 03/05/20 at 12:57; Status DC Albumin Human 500 ml @ As Directed STK-MED ONCE IV ; Start 03/05/20 at 13:08; Stop 03/05/20 at 13:08; Status DC Albumin Human 500 ml @ As Directed STK-MED ONCE IV ; Start 03/05/20 at 13:13; Stop 03/05/20 at 13:14; Status DC Phenylephrine HCl (Devin-Synephrine Inj) 10 mg STK-MED ONCE .ROUTE ; Start 03/05/20 at 13:35; Stop 03/05/20 at 13:35; Status DC Phenylephrine HCl (Devin-Synephrine Inj) 10 mg STK-MED ONCE .ROUTE ; Start 03/05/20 at 13:48; Stop 03/05/20 at 13:49; Status DC Sevoflurane (Ultane) 90 ml STK-MED ONCE IH ; Start 03/05/20 at 14:30; Stop 03/05/20 at 14:30; Status DC Phenylephrine HCl (Devin-Synephrine Inj) 10 mg STK-MED ONCE .ROUTE ; Start 03/05/20 at 14:35; Stop 03/05/20 at 14:36; Status DC Midazolam HCl 100 mg/Sodium Chloride 100 ml @ 1 mls/hr CONT PRN IV SEE I/O RECORD Last administered on 03/13/20at 19:50; Start 03/05/20 at 15:15 Fentanyl Citrate 30 ml @ 2.5 mls/hr CONT PRN PRN IV PER PROTOCOL Last administered on 03/15/20at 02:05; Start 03/05/20 at 15:15 Naloxone HCl (Narcan) 0.4 mg PRN Q2MIN PRN IV SEE INSTRUCTIONS; Start 03/05/20 at 15:15; Stop 03/06/20 at 09:45; Status DC Sodium Chloride 1,000 ml @ 25 mls/hr Q24H IV ; Start 03/05/20 at 15:13; Stop 03/06/20 at 14:24; Status DC Norepinephrine Bitartrate 8 mg/ Dextrose 258 ml @ 15.287 mls/ hr CONT PRN IV PER PROTOCOL Last administered on 03/11/20at 18:15; Start 03/05/20 at 15:30 Enoxaparin Sodium (Lovenox 40mg Syringe) 40 mg Q24H SQ Last administered on 03/16/20at 08:16; Start 03/06/20 at 08:00 Sodium Chloride (Normal Saline Flush) 3 ml QSHIFT PRN IV AFTER MEDS AND BLOOD DRAWS; Start 03/05/20 at 16:15 Ringer's Solution 1,000 ml @ 100 mls/hr Q10H IV Last administered on 03/08/20at 11:19; Start 03/05/20 at 16:09; Stop 03/08/20 at 18:54; Status DC Naloxone HCl (Narcan) 0.4 mg PRN Q2MIN PRN IV SEE INSTRUCTIONS; Start 03/05/20 at 16:15 Sodium Chloride 1,000 ml @ 25 mls/hr Q24H IV ; Start 03/05/20 at 16:09; Stop 03/06/20 at 14:24; Status DC Morphine Sulfate 30 ml @ 0 mls/hr CONT PRN PRN IV PER PROTOCOL; Start 03/05/20 at 16:15; Stop 03/06/20 at 09:48; Status DC Ondansetron HCl (Zofran) 4 mg PRN Q6HRS PRN IVP NAUESA, 1ST CHOICE; Start 03/05/20 at 16:15 Piperacillin Sod/ Tazobactam Sod 3.375 gm/Sodium Chloride 50 ml @ 100 mls/hr Q6HRS IV Last administered on 03/16/20at 07:56; Start 03/05/20 at 17:00 Ringer's Solution 1,000 ml @ 999 mls/hr 1X ONCE IV Last administered on 03/05/20at 20:59; Start 03/05/20 at 20:00; Stop 03/05/20 at 21:00; Status DC Vasopressin 20 unit/Dextrose 101 ml @ 12 mls/hr CONT PRN IV SEE I/O RECORD Last administered on 03/11/20at 06:25; Start 03/05/20 at 20:00 Ringer's Solution 1,000 ml @ 999 mls/hr 1X ONCE IV Last administered on 03/06/20at 01:07; Start 03/06/20 at 01:00; Stop 03/06/20 at 02:00; Status DC Ringer's Solution 1,000 ml @ 999 mls/hr 1X ONCE IV Last administered on 03/06/20at 05:18; Start 03/06/20 at 05:00; Stop 03/06/20 at 06:00; Status DC Ringer's Solution 1,000 ml @ 999 mls/hr 1X ONCE IV Last administered on 03/06/20at 09:54; Start 03/06/20 at 09:45; Stop 03/06/20 at 10:45; Status DC Ringer's Solution 1,000 ml @ 999 mls/hr 1X ONCE IV Last administered on 03/06/20at 13:40; Start 03/06/20 at 13:45; Stop 03/06/20 at 14:45; Status DC Ringer's Solution 1,000 ml @ 999 mls/hr 1X ONCE IV Last administered on 03/06/20at 18:43; Start 03/06/20 at 18:15; Stop 03/06/20 at 19:15; Status DC Sodium Chloride 200 ml @ 50 mls/hr 1X ONCE IV Last administered on 03/07/20at 13:49; Start 03/07/20 at 13:30; Stop 03/07/20 at 17:29; Status DC Potassium Phosphate 13.6 mmol/Sodium Chloride 254.5333 ml @ 62.5 mls/hr Q4H IV Last administered on 03/08/20at 16:52; Start 03/08/20 at 08:30; Stop 03/08/20 at 20:29; Status DC Magnesium Sulfate 50 ml @ 25 mls/hr 1X ONCE IV Last administered on 03/08/20at 08:00; Start 03/08/20 at 08:00; Stop 03/08/20 at 09:59; Status DC Sodium Chloride 300 ml @ 50 mls/hr 1X ONCE IV Last administered on 03/08/20at 08:00; Start 03/08/20 at 08:00; Stop 03/08/20 at 13:59; Status DC Info (Tpn Per Pharmacy) 1 each PRN DAILY PRN MC SEE COMMENTS Last administered on 03/15/20at 12:12; Start 03/08/20 at 11:00 Sodium Chloride 100 meq/Potassium Chloride 50 meq/ Potassium Phosphate 18 mmol/ Magnesium Sulfate 15 meq/Calcium Gluconate 10 meq/ Multivitamins 10 ml/Chromium/ Copper/Manganese/ Seleni/Zn 1 ml/ Total Parenteral Nutrition/Amino Acids/Dextrose/ Fat Emulsion Intravenous 1,512 ml @ 63 mls/hr TPN CONT IV ; Start 03/08/20 at 22:00; Stop 03/08/20 at 11:31; Status DC Sodium Chloride 100 meq/Potassium Chloride 50 meq/ Potassium Phosphate 18 mmol/ Magnesium Sulfate 15 meq/Calcium Gluconate 10 meq/ Multivitamins 10 ml/Chromium/ Copper/Manganese/ Seleni/Zn 1 ml/ Total Parenteral Nutrition/Amino Acids/Dextrose/ Fat Emulsion Intravenous 1,920 ml @ 80 mls/hr TPN CONT IV Last administered on 03/08/20at 23:04; Start 03/08/20 at 22:00; Stop 03/09/20 at 21:59; Status DC Potassium Chloride/Water 100 ml @ 100 mls/hr 1X ONCE IV Last administered on 03/08/20at 15:51; Start 03/08/20 at 16:00; Stop 03/08/20 at 16:59; Status DC Sodium Chloride 100 meq/Potassium Chloride 50 meq/ Potassium Phosphate 18 mmol/ Magnesium Sulfate 15 meq/Calcium Gluconate 10 meq/ Multivitamins 10 ml/Chromium/ Copper/Manganese/ Seleni/Zn 1 ml/ Total Parenteral Nutrition/Amino Acids/Dextrose/ Fat Emulsion Intravenous 1,920 ml @ 80 mls/hr TPN CONT IV Last administered on 03/09/20at 22:00; Start 03/09/20 at 22:00; Stop 03/10/20 at 21:59; Status DC Sodium Phosphate 15 mmol/Sodium Chloride 255 ml @ 63.75 mls/ hr 1X ONCE IV Last administered on 03/10/20at 08:45; Start 03/10/20 at 09:00; Stop 03/10/20 at 12:59; Status DC Sodium Chloride 100 meq/Sodium Phosphate 15 mmol/ Potassium Chloride 50 meq/ Potassium Phosphate 18 mmol/ Magnesium Sulfate 15 meq/Calcium Gluconate 10 meq/ Multivitamins 10 ml/Chromium/ Copper/Manganese/ Seleni/Zn 1 ml/ Total Parenteral Nutrition/Amino Acids/Dextrose/ Fat Emulsion Intravenous 1,920 ml @ 80 mls/hr TPN CONT IV Last administered on 03/10/20at 21:41; Start 03/10/20 at 22:00; Stop 03/11/20 at 21:59; Status DC Sodium Phosphate 15 mmol/Sodium Chloride 255 ml @ 63.75 mls/ hr 1X ONCE IV Last administered on 03/11/20at 12:00; Start 03/11/20 at 10:00; Stop 03/11/20 at 13:59; Status DC Sodium Chloride 100 meq/Sodium Phosphate 15 mmol/ Potassium Chloride 50 meq/ Potassium Phosphate 18 mmol/ Magnesium Sulfate 15 meq/Calcium Gluconate 10 meq/ Multivitamins 10 ml/Chromium/ Copper/Manganese/ Seleni/Zn 1 ml/ Total Parenteral Nutrition/Amino Acids/Dextrose/ Fat Emulsion Intravenous 1,920 ml @ 80 mls/hr TPN CONT IV Last administered on 03/11/20at 21:52; Start 03/11/20 at 22:00; Stop 03/12/20 at 21:59; Status DC Dexmedetomidine HCl 400 mcg/ Sodium Chloride 100 ml @ 0 mls/hr CONT PRN IV SEE COMMENTS Last administered on 03/15/20at 02:04; Start 03/11/20 at 10:00 Sodium Chloride 500 ml @ 500 mls/hr 1X PRN PRN IV SEE COMMENTS; Start 03/11/20 at 10:00 Atropine Sulfate (ATROPINE 0.5mg SYRINGE) 0.5 mg PRN Q5MIN PRN IV SEE COMMENTS; Start 03/11/20 at 10:00 Calcium Gluconate (Calcium Gluconate) 1,000 mg 1X ONCE IVP Last administered on 03/11/20at 12:35; Start 03/11/20 at 12:30; Stop 03/11/20 at 12:31; Status DC Sodium Chloride 80 meq/Sodium Phosphate 15 mmol/ Potassium Chloride 50 meq/ Potassium Phosphate 15 mmol/ Magnesium Sulfate 15 meq/Calcium Gluconate 10 meq/ Multivitamins 10 ml/Chromium/ Copper/Manganese/ Seleni/Zn 1 ml/ Total Parenteral Nutrition/Amino Acids/Dextrose/ Fat Emulsion Intravenous 1,920 ml @ 80 mls/hr TPN CONT IV Last administered on 03/12/20at 22:06; Start 03/12/20 at 22:00; Stop 03/13/20 at 21:59; Status DC Metoprolol Tartrate (Lopressor Vial) 2.5 mg Q6HRS IVP Last administered on at 08:50; Start 03/12/20 at 12:00; Stop 03/14/20 at 11:24; Status DC Albuterol Sulfate (Ventolin Neb Soln) 2.5 mg 1X ONCE NEB Last administered on 03/13/20at 00:00; Start 03/13/20 at 00:00; Stop 03/13/20 at 00:01; Status DC Sodium Chloride 80 meq/Sodium Phosphate 15 mmol/ Potassium Chloride 50 meq/ Potassium Phosphate 15 mmol/ Magnesium Sulfate 15 meq/Calcium Gluconate 10 meq/ Multivitamins 10 ml/Chromium/ Copper/Manganese/ Seleni/Zn 1 ml/ Total Parenteral Nutrition/Amino Acids/Dextrose/ Fat Emulsion Intravenous 1,920 ml @ 80 mls/hr TPN CONT IV Last administered on 03/13/20at 22:01; Start 03/13/20 at 22:00; Stop 03/14/20 at 21:59; Status DC Albuterol/ Ipratropium (Duoneb) 3 ml RTQID NEB Last administered on 03/16/20at 07:37; Start 03/13/20 at 12:00 Sodium Chloride 80 meq/Sodium Phosphate 15 mmol/ Potassium Chloride 50 meq/ Potassium Phosphate 15 mmol/ Magnesium Sulfate 15 meq/Calcium Gluconate 10 meq/ Multivitamins 10 ml/Chromium/ Copper/Manganese/ Seleni/Zn 1 ml/ Total Parenteral Nutrition/Amino Acids/Dextrose/ Fat Emulsion Intravenous 1,920 ml @ 80 mls/hr TPN CONT IV Last administered on 03/14/20at 21:54; Start 03/14/20 at 22:00; Stop 03/15/20 at 21:59; Status DC Metoprolol Tartrate (Lopressor Vial) 5 mg Q6HRS IVP Last administered on 03/14/20at 18:25; Start 03/14/20 at 12:00; Stop 03/15/20 at 14:17; Status DC Hydralazine HCl (Apresoline Inj) 10 mg PRN Q4HRS PRN IVP ELEVATED BP, SEE CO MMENTS; Start 03/14/20 at 11:30 Sodium Chloride 80 meq/Sodium Phosphate 15 mmol/ Potassium Chloride 50 meq/ Potassium Phosphate 15 mmol/ Magnesium Sulfate 15 meq/Calcium Gluconate 10 meq/ Multivitamins 10 ml/Chromium/ Copper/Manganese/ Seleni/Zn 1 ml/ Total Parenteral Nutrition/Amino Acids/Dextrose/ Fat Emulsion Intravenous 1,920 ml @ 80 mls/hr TPN CONT IV Last administered on 03/15/20at 22:10; Start 03/15/20 at 22:00; Stop 03/16/20 at 21:59 Metoprolol Tartrate (Lopressor Vial) 2.5 mg Q6HRS IVP ; Start 03/15/20 at 18:00 Active Scripts Active Reported Flomax (Tamsulosin Hcl) 0.4 Mg Cap.er.24h 1 Cap PO QHS Vitals/I & O Vital Sign - Last 24 Hours 03/15/20 03/15/20 03/15/20 03/15/20 09:00 09:07 10:00 11:00 Pulse 78 62 66 Resp 26 24 26 B/P (MAP) 125/80 (95) 87/61 (70) 103/69 (80) Pulse Ox 100 98 98 98 O2 Delivery Ventilator Nasal Cannula Nasal Cannula Nasal Cannula O2 Flow Rate 2.0 2.0 2.0 03/15/20 03/15/20 03/15/20 03/15/20 11:32 11:39 12:00 12:00 Temp 98.4 98.4 Pulse 73 82 Resp 24 B/P (MAP) 97/61 97/61 (73) Pulse Ox 99 98 O2 Delivery Nasal Cannula Nasal Cannula Nasal Cannula O2 Flow Rate 2.0 2.0 2.0 03/15/20 03/15/20 03/15/20 03/15/20 13:00 14:00 15:00 15:23 Pulse 82 84 92 Resp 24 22 22 B/P (MAP) 93/56 (68) 103/76 (85) 109/60 (76) Pulse Ox 98 98 98 O2 Delivery Nasal Cannula Nasal Cannula Nasal Cannula Nasal Cannula O2 Flow Rate 2.0 2.0 2.0 2.0 03/15/20 03/15/20 03/15/20 03/15/20 16:00 16:00 17:00 18:00 Temp 98.0 98.0 Pulse 95 Resp 22 20 B/P (MAP) 111/68 (82) 110/72 (85) 90/60 Pulse Ox 98 98 O2 Delivery Nasal Cannula Nasal Cannula Nasal Cannula O2 Flow Rate 2.0 2.0 2.0 03/15/20 03/15/20 03/15/20 03/15/20 18:00 19:00 19:15 20:00 Pulse 92 Resp 18 22 B/P (MAP) 113/65 (81) 114/67 (83) Pulse Ox 98 99 98 O2 Delivery Nasal Cannula Nasal Cannula Nasal Cannula Nasal Cannula O2 Flow Rate 2.0 2.0 2.0 2.0 03/15/20 03/15/20 03/15/20 03/15/20 20:00 21:00 22:00 23:00 Temp 98.5 98.5 Pulse 94 105 99 Resp 27 24 29 31 B/P (MAP) 116/67 (83) 103/57 (72) 119/71 (87) 105/69 (81) Pulse Ox 99 99 99 99 O2 Delivery Nasal Cannula Nasal Cannula Nasal Cannula Nasal Cannula O2 Flow Rate 2.0 2.0 2.0 2.0 03/16/20 03/16/20 03/16/20 03/16/20 00:00 00:00 00:00 01:00 Temp 98.1 98.1 Pulse 90 90 99 Resp 38 24 B/P (MAP) 107/66 112/70 (84) 87/67 (74) Pulse Ox 100 99 O2 Delivery Nasal Cannula Nasal Cannula Nasal Cannula O2 Flow Rate 2.0 2.0 2.0 03/16/20 03/16/20 03/16/20 03/16/20 02:00 03:00 04:00 04:00 Temp 98.7 98.7 Pulse 100 79 90 Resp 25 32 19 B/P (MAP) 112/68 (83) 103/62 (76) 107/66 (80) Pulse Ox 100 100 97 O2 Delivery Nasal Cannula Nasal Cannula Nasal Cannula Nasal Cannula O2 Flow Rate 2.0 2.0 2.0 2.0 03/16/20 03/16/20 03/16/20 05:00 06:00 07:37 Pulse 93 100 Resp 20 23 B/P (MAP) 106/61 (76) 111/71 (84) Pulse Ox 100 100 98 O2 Delivery Nasal Cannula Nasal Cannula Nasal Cannula O2 Flow Rate 2.0 2.0 2.0 Intake and Output 03/15/20 03/15/20 03/16/20 15:00 23:00 07:00 Intake Total 960 ml 989 ml Output Total 325 ml 790 ml 460 ml Balance -325 ml 170 ml 529 ml Nutrition Consultation Dietary Evaluation: Recommendations by RD: Dietary education by RD, Increase Calorie Intake, PPN/TPN Comments: Continue w/TPN for nutrition at this time, recommend adjust macronutrients to following AA, 250g dextrose, 20g lipids Expected Outcomes/Goals: New goal 03/08: TPN to meet >65% est needs while intubated - met, new goal established New goal 03/15: TPN infusion to meet >75% est needs Malnutrition Findings: Food and Nutrition Intake (Mod: <75% est energy req 7days Weight Status: Appropriate Justicifation of Admission Dx: Justifications for Admission: Justification of Admission Dx: Yes RAIN CRYSTAL MD Mar 16, 2020 08:54
[2020-03-16] MEDS ORDERED: ALBUMIN HUMAN 5% 500 ML IV ONE (09:15)
[2020-03-16] MEDS ORDERED: FUROSEMIDE 40 MG/4 ML VIAL. IVP ONE (09:15)
--- NOTE | 2020-03-16 09:19 | PDOC ---
SURGICAL PROGRESS NOTE Subjective Patient states he is feeling well denies any abdominal pain no nausea Vital Signs Vital Signs Date Time Temp Pulse Resp B/P (MAP) Pulse Ox O2 Delivery O2 Flow Rate FiO2 03/16/20 07:37 98 Nasal Cannula 2.0 03/16/20 06:00 100 23 111/71 (84) 03/16/20 04:00 98.7 98.7 I&O Intake and Output 03/16/20 07:00 Intake Total 1949 ml Output Total 1575 ml Balance 374 ml IV Total 1949 ml Output Urine Total 1235 ml Drainage Total 340 ml # Bowel Movements 2 PATIENT HAS A DOZIER: Yes General: Alert, Cooperative, mild distress, Other (Mildly confused) HEENT: Other (NG tube in place with minimal output) Lungs: Clear to auscultation, Normal air movement Abdomen: Normal bowel sounds, Soft, No tenderness, Other (Wounds clean dry and intact) Labs Laboratory Tests Test 03/15/20 05:50 03/15/20 07:55 03/15/20 08:46 03/16/20 05:00 White Blood Count 7.2 x10^3/uL (4.0-11.0) Red Blood Count 3.32 x10^6/uL (4.30-5.70) Hemoglobin 8.7 g/dL (13.0-17.5) Hematocrit 26.9 % (39.0-53.0) Mean Corpuscular Volume 81 fL (79-100) Mean Corpuscular Hemoglobin 26 pg (25-35) Mean Corpuscular Hemoglobin Concent 32 g/dL (31-37) Red Cell Distribution Width 27.7 % (11.5-14.5) Platelet Count 292 x10^3/uL (140-400) Neutrophils (%) (Auto) 84 % (31-73) Lymphocytes (%) (Auto) 6 % (24-48) Monocytes (%) (Auto) 8 % (0-9) Eosinophils (%) (Auto) 1 % (0-3) Basophils (%) (Auto) 1 % (0-3) Neutrophils # (Auto) 6.1 x10^3/uL (1.8-7.7) Lymphocytes # (Auto) 0.4 x10^3/uL (1.0-4.8) Monocytes # (Auto) 0.5 x10^3/uL (0.0-1.1) Eosinophils # (Auto) 0.1 x10^3/uL (0.0-0.7) Basophils # (Auto) 0.1 x10^3/uL (0.0-0.2) Sodium Level 140 mmol/L (136-145) 139 mmol/L (136-145) Potassium Level 4.0 mmol/L (3.5-5.1) 3.5 mmol/L (3.5-5.1) Chloride Level 108 mmol/L (98-107) 108 mmol/L (98-107) Carbon Dioxide Level 28 mmol/L (21-32) 26 mmol/L (21-32) Anion Gap 4 (6-14) 5 (6-14) Blood Urea Nitrogen 18 mg/dL (8-26) 16 mg/dL (8-26) Creatinine 0.6 mg/dL (0.7-1.3) 0.5 mg/dL (0.7-1.3) Estimated GFR (Cockcroft-Gault) 132.8 163.9 Glucose Level 107 mg/dL (70-99) 90 mg/dL (70-99) Calcium Level 6.8 mg/dL (8.5-10.1) 7.0 mg/dL (8.5-10.1) Phosphorus Level 3.4 mg/dL (2.6-4.7) 3.2 mg/dL (2.6-4.7) Magnesium Level 1.9 mg/dL (1.8-2.4) 2.0 mg/dL (1.8-2.4) O2 Saturation 98 % (92-99) 98 % (92-99) Arterial Blood pH 7.47 (7.35-7.45) 7.36 (7.35-7.45) Arterial Blood pCO2 at Patient Temp 36 mmHg (35-46) 44 mmHg (35-46) Arterial Blood pO2 at Patient Temp 130 mmHg (65-108) 133 mmHg (65-108) Arterial Blood HCO3 26 mmol/L (21-28) 24 mmol/L (21-28) Arterial Blood Base Excess 2 mmol/L (-3-3) -1 mmol/L (-3-3) FiO2 40% vent 40% ps 5 peep 5 Laboratory Tests Test 03/16/20 05:00 Sodium Level 139 mmol/L (136-145) Potassium Level 3.5 mmol/L (3.5-5.1) Chloride Level 108 mmol/L (98-107) Carbon Dioxide Level 26 mmol/L (21-32) Anion Gap 5 (6-14) Blood Urea Nitrogen 16 mg/dL (8-26) Creatinine 0.5 mg/dL (0.7-1.3) Estimated GFR (Cockcroft-Gault) 163.9 Glucose Level 90 mg/dL (70-99) Calcium Level 7.0 mg/dL (8.5-10.1) Phosphorus Level 3.2 mg/dL (2.6-4.7) Magnesium Level 2.0 mg/dL (1.8-2.4) Problem List Problems Medical Problems: (1) Anemia Status: Acute (2) Colonic mass Status: Acute (3) Fatigue Status: Acute (4) Hypocalcemia Status: Acute (5) Nausea & vomiting Status: Acute (6) SBO (small bowel obstruction) Status: Acute Assessment/Plan Status post colon resection. Will DC NG tube asked for speech therapy for swallow evaluation Continue supportive care Justicifation of Admission Dx: Justifications for Admission: Justification of Admission Dx: Yes TRISTIAN SCRUGGS MD Mar 16, 2020 09:19
--- NOTE | 2020-03-16 09:59 | PDOC ---
Objective: Objective: D/w nurse - stooling. Vital Signs: Vital Signs Date Time Temp Pulse Resp B/P (MAP) Pulse Ox O2 Delivery O2 Flow Rate FiO2 03/16/20 07:37 98 Nasal Cannula 2.0 03/16/20 06:00 100 23 111/71 (84) 03/16/20 04:00 98.7 98.7 Labs: Laboratory Tests Test 03/16/20 05:00 Sodium Level 139 mmol/L Potassium Level 3.5 mmol/L Chloride Level 108 mmol/L Carbon Dioxide Level 26 mmol/L Anion Gap 5 Blood Urea Nitrogen 16 mg/dL Creatinine 0.5 mg/dL Estimated GFR (Cockcroft-Gault) 163.9 Glucose Level 90 mg/dL Calcium Level 7.0 mg/dL Phosphorus Level 3.2 mg/dL Magnesium Level 2.0 mg/dL PE: GEN: NAD LUNGS: clear ABD: soft, non-tender, NG clamped EXTREMITY: pitting edema BLE NEURO/PSYCH: some confusion A/P: Colon cancer s/p resection -- Since I have seen, orders to remove NG and for [employer]PER[employer] eval. Justicifation of Admission Dx: Justifications for Admission: Justification of Admission Dx: Yes LONG RIOS Mar 16, 2020 09:59
--- NOTE | 2020-03-16 10:39 | NUR ---
NG removed. PT/OT here and assisted pt to chair with max assist. ST here. Pt okayed to have diet advanced per Surgery. Pt awake and alert and more oriented today. Bed and chair alarms on. Ian has pt checkbook
--- NOTE | 2020-03-16 10:56 | NUR ---
SS following for discharge planning. SS reviewed pt chart and discussed with pt RN. Pt is currently on two liters nasal canula oxygen. Pt on TPN. IV Zosyn was discontinued. PT/OT/ST ordered. Pt more alert today. Pt accepted at [facility], ; fax [phone]. SS phoned and faxed clinical updates to [facility]. SS will continue to follow for discharge planning.
[2020-03-16] MEDS: TPN PER PHARMACY MC PRN (11:03)
--- NOTE | 2020-03-16 11:09 | NUR ---
Pharmacy TPN Dosing Note S: FABIANO HELLER is a 69 year old M Currently receiving Central Continuous TPN started 03/08/20 B:Pertinent PMH: NPO/SBO Height: 6 feet, 3 inches Weight: 88.0 kg Current diet: NPO - having swallow study done today LABS: Sodium: 139 Potassium: 3.5 Chloride: 108 Calcium: 7.0 Corrected Calcium: 9.56 Magnesium: 2 CO2: 26 SCr: 0.5 Glucose: 90 Albumin: 0.8 AST: 16 ALT: 15 TPN FORMULA: TPN TYPE: Central Continuous AMINO ACIDS: 80 gm DEXTROSE: 250 gm LIPIDS: 20 gm SODIUM CHLORIDE: 80 mEq SODIUM ACETATE: - mEq SODIUM PHOSPHATE: 15 mmol POTASSIUM CHLORIDE: 50 mEq POTASSIUM ACETATE: - mEq POTASSIUM PHOSPHATE: 15 mmol MAGNESIUM: 15 mEq CALCIUM: 10 mEq INSULIN: - units MULTIPLE VITAMIN: 10 ml TRACE ELEMENTS: 1 ml ml(s) TPN PLAN: -Continue macros per staff climate scientist recommendations. -Chloride remains the same and additional electrolytes remain WNL. Noted patient to receive 1x furosemide today, however patient also having swallow eval done and diet may advance. For these reasons no further adjustments made to TPN at this time. -BMP/phos/mag ordered with AM labs. R: Continue current TPN formulation. Will monitor electrolytes, glucose, and tolerance to TPN. CRIS MICHAEL, [facility] [place], 03/16/20 [id number]
--- NOTE | 2020-03-16 15:16 | NUR ---
SS following up with discharge planning. SS completed DPOA paperwork with pt and brother in room.
[2020-03-16] MEDS ORDERED: METOPROLOL TART IMMED RELEASE 25 MG TABLET. PO SCH (18:00)
[2020-03-16] MEDS: METOPROLOL TART IMMED RELEASE 25 MG TABLET. PO SCH (18:19)
[2020-03-16] MEDS: TAMSULOSIN 0.4 MG CAP.ER.24H. PO SCH (21:08)
[2020-03-16] MEDS ORDERED: DEXTROSE 70% IV SCH (22:00)
[2020-03-16] MEDS ORDERED: AMINO ACID IV SCH (22:00)
[2020-03-16] MEDS ORDERED: TOTAL PARENTERAL NUTRITION IV SCH (22:00)
[2020-03-16] MEDS ORDERED: [UNRECOGNIZED DRUG - OTHER] IV SCH (22:00)
[2020-03-17] VITALS (10 sets, daily range): BP systolic 94–160; BP diastolic 72–105
[2020-03-17] MEDS: PIPERACILLIN/TAZOBACTAM 3.375 GM in IV NORMAL SALINE 50ML 50 ML IV SCH ×2 (00:12→05:58)
[2020-03-17] MEDS: METOPROLOL TART IMMED RELEASE 25 MG TABLET. PO SCH ×4 (00:16→18:09)
[2020-03-17] MEDS: METOPROLOL TARTRATE 5 MG/5 ML VIAL. IVP PRN ×2 (07:16→22:01)
[2020-03-17] MEDS: PANTOPRAZOLE IV PUSH 40 MG VIAL. IVP SCH (07:16)
[2020-03-17 07:43] LABS: CALCIUM 6.9 mg/dL (8.5-10.1); CREATININE 0.5 mg/dL (0.7-1.3); GFR 163.9; MAGNESIUM 2.1 mg/dL (1.8-2.4); PHOSPHORUS 3.8 mg/dL (2.6-4.7); POTASSIUM 3.8 mmol/L (3.5-5.1)
[2020-03-17] MEDS: IPRATRPIUM/ALBUTEROL 0.5/2.5MG 3 ML NEBU. NEB SCH (07:58)
[2020-03-17] MEDS ORDERED: ALBUMIN HUMAN 5% 500 ML IV ONE (08:30)
--- NOTE | 2020-03-17 08:43 | PDOC ---
PROGRESS NOTES Chief Complaint Chief Complaint A/P: Acute respiratory failure, post-operative. S/p intubation. ? PNA Small bowel dilatation/obstruction suspicious for primary colon cancer 10.5cm mass with surrounding lymph nodes concerning for metastatic disease 10.5 cm colonic mass. Colonic mass abuts the right hepatic lobe inferior margin as well as the duodenum and anterior right kidney (extending through or deforming Gerota's fascia), suspicious for primary colon cancer. Prominent associated lymph nodes are seen, possibly metastatic Obstructing right colon cancer Dialated Appendix fatty liver dz Gallstones Microcytic Anemia Alkaline Phosphatemia Hyponatremia Mild Leukocytosis Tachycardia H/o prostate cancer in remission Severe protein calorie malnutrition LE edema - BNP of 350, no cardiac history and no symptoms of CHF. This is unlikely to be cardiac related at all. Likely likely lymphatic obstruction due to abdominal mass. Hyponatremia - likely due to poor PO intake, SERUM OSMOLALITY PENDING HYPOTENSION, POSSIBLE SEPSIS SVT - Arrhythmia; Brief period of SVT. Otherwise, has been maintaining SR/ST Acute blood loss anemia, s/p transfusion Hypocalcemia Plan NPO vent support post=op remains critically ill 38 min cc time History of Present Illness History of Present Illness Mr Claudio is a 69 yo CM hx of prostate cancer s/p radiation, HTN, prediabetes now off meds who presents with vomiting fatigue diarrhea weight loss and decreased appetite for 1 month. He went to see his PCP because over the past week he had sudden onset lower extremity edema, patient had labs drawn as outpatient and called by PCP to go to the hospital for a blood transfusion and treatment for CHF. No history of CHF. On ROS he just notes his bones feel heavy. He also notes over the past 2 months sometimes he will choke on food and vomited up. His last bowel movement was 2 days ago and it was diarrhea. He has not been able to eat very well. He just feels tired. He stopped smoking over 25 years ago and he only did smoke cigars at that time. With regard to his prostate cancer he states that he had 43 radiation treatments and had a PET scan at the end of 2019 and was told he is in remission. He has never had a colonoscopy. in ED patient found to have hb of 9.8. na 130. noted to be tachy with HR 110. Patient lives with 101 year old mom. His mother has history of stage III colon cancer diagnosed at age 76. His brother has history of prostate cancer, father of lung cancer. 03/05: To OR for open right colon resection with partial duodenal resection, duodenostomy tube, cholecystectomy w/ cholangiogram and ghost ileostomy. Returned to ICU on ventilator. Pulm consulted 03/12: SVT - cardiology consulted, resolved without intervention 03/13. off pressors, vitals better, weaning sedation and weaning vent 03/14: Failed vent wean. He is obviously confused, but attempting to self extubate with mittens on . Labs improved. AC mode with rate of 12, 500cc/40% FiO2/ PEEP of 5. 03/15: Afebrile. Hb 8.7 hypotensive overnight. Vent on AC mode on wean ABG 7.36/40 4/133 on PEEP 5 FiO2 40%, extubated with me present not speaking but nodding somewhat appropriately to questions. Appears comfortable 03/16: On O2. Still on TPN, multiple BM yesterday and overnight. He is a bit confused. Legs much more swollen. Labs stable. Diuresis of 4 L after Lasix and albumin yesterday. Afebrile overnight very tachycardic in the 160s overnight given metoprolol. BP low now, HR in 90s, labs actually appear stable. He is still very weak and a bit more clear headed, though confused on timeline thinks he has been in here 5 weeks and still is convinced he had colon cancer surgery and then a cardiac surgery. I reassured him this may be a miscommunication. Plan: Albumin and Lasix x1, elevate legs NGT per surgery, diet per surgery Ok to downgrade to CVC Vitals Vitals Vital Signs Date Time Temp Pulse Resp B/P (MAP) Pulse Ox O2 Delivery O2 Flow Rate FiO2 03/17/20 08:01 98 Room Air 03/17/20 07:16 154 106/78 03/17/20 04:00 97.8 97.8 03/16/20 12:00 2.0 03/16/20 11:00 18 Physical Exam General: Alert, Cooperative, mild distress, Other (Mildly confused) Heart: Regular rate (ST) Lungs: Clear Abdomen: Normal bowel sounds, Soft, No tenderness, Other (Wounds clean dry and intact) Extremities: Other (2+ bilateral LE pitting edema, anasarca ) Skin: No significant lesion Labs LABS Laboratory Tests Test 03/17/20 06:00 Sodium Level 140 mmol/L (136-145) Potassium Level 3.8 mmol/L (3.5-5.1) Chloride Level 108 mmol/L (98-107) Carbon Dioxide Level 25 mmol/L (21-32) Anion Gap 7 (6-14) Blood Urea Nitrogen 13 mg/dL (8-26) Creatinine 0.5 mg/dL (0.7-1.3) Estimated GFR (Cockcroft-Gault) 163.9 Glucose Level 97 mg/dL (70-99) Calcium Level 6.9 mg/dL (8.5-10.1) Phosphorus Level 3.8 mg/dL (2.6-4.7) Magnesium Level 2.1 mg/dL (1.8-2.4) Assessment and Plan Assessmemt and Plan Problems Medical Problems: (1) Anemia Status: Acute (2) Colonic mass Status: Acute (3) Fatigue Status: Acute (4) Hypocalcemia Status: Acute (5) Nausea & vomiting Status: Acute (6) SBO (small bowel obstruction) Status: Acute Comment Review of Relevant I have reviewed the following items radhames (where applicable) has been applied. Labs Laboratory Tests Test 03/15/20 08:46 03/16/20 05:00 03/17/20 06:00 O2 Saturation 98 % (92-99) Arterial Blood pH 7.36 (7.35-7.45) Arterial Blood pCO2 at Patient Temp 44 mmHg (35-46) Arterial Blood pO2 at Patient Temp 133 mmHg (65-108) Arterial Blood HCO3 24 mmol/L (21-28) Arterial Blood Base Excess -1 mmol/L (-3-3) FiO2 40% ps 5 peep 5 Sodium Level 139 mmol/L (136-145) 140 mmol/L (136-145) Potassium Level 3.5 mmol/L (3.5-5.1) 3.8 mmol/L (3.5-5.1) Chloride Level 108 mmol/L (98-107) 108 mmol/L (98-107) Carbon Dioxide Level 26 mmol/L (21-32) 25 mmol/L (21-32) Anion Gap 5 (6-14) 7 (6-14) Blood Urea Nitrogen 16 mg/dL (8-26) 13 mg/dL (8-26) Creatinine 0.5 mg/dL (0.7-1.3) 0.5 mg/dL (0.7-1.3) Estimated GFR (Cockcroft-Gault) 163.9 163.9 Glucose Level 90 mg/dL (70-99) 97 mg/dL (70-99) Calcium Level 7.0 mg/dL (8.5-10.1) 6.9 mg/dL (8.5-10.1) Phosphorus Level 3.2 mg/dL (2.6-4.7) 3.8 mg/dL (2.6-4.7) Magnesium Level 2.0 mg/dL (1.8-2.4) 2.1 mg/dL (1.8-2.4) Laboratory Tests Test 03/17/20 06:00 Sodium Level 140 mmol/L (136-145) Potassium Level 3.8 mmol/L (3.5-5.1) Chloride Level 108 mmol/L (98-107) Carbon Dioxide Level 25 mmol/L (21-32) Anion Gap 7 (6-14) Blood Urea Nitrogen 13 mg/dL (8-26) Creatinine 0.5 mg/dL (0.7-1.3) Estimated GFR (Cockcroft-Gault) 163.9 Glucose Level 97 mg/dL (70-99) Calcium Level 6.9 mg/dL (8.5-10.1) Phosphorus Level 3.8 mg/dL (2.6-4.7) Magnesium Level 2.1 mg/dL (1.8-2.4) Microbiology 03/02/20 Urine Culture - Final, Complete Medications Current Medications Sodium Chloride 1,000 ml @ 1,000 mls/hr 1X ONCE IV Last administered on 03/02/20at 17:05; Start 03/02/20 at 16:45; Stop 03/02/20 at 17:44; Status DC Calcium Gluconate (Calcium Gluconate) 1,000 mg 1X ONCE IVP Last administered on 03/02/20at 18:21; Start 03/02/20 at 18:15; Stop 03/02/20 at 18:18; Status DC Iohexol (Omnipaque 300 Mg/ml) 75 ml 1X ONCE IV Last administered on 03/02/20at 18:34; Start 03/02/20 at 18:30; Stop 03/02/20 at 18:31; Status DC Pantoprazole Sodium (PROTONIX VIAL for IV PUSH) 40 mg 1X ONCE IVP Last administered on 03/02/20at 18:41; Start 03/02/20 at 18:45; Stop 03/02/20 at 18:46; Status DC Sodium Chloride 1,000 ml @ 100 mls/hr 1X ONCE IV Last administered on 03/02/20at 19:04; Start 03/02/20 at 18:45; Stop 03/03/20 at 04:44; Status DC Enoxaparin Sodium (Lovenox Per Pharmacy Prophylaxis Dosing) 1 each PRN DAILY PRN MC SEE COMMENTS; Start 03/02/20 at 20:30; Status Cancel Enoxaparin Sodium (Lovenox 40mg Syringe) 40 mg Q24H SQ Last administered on 03/02/20at 23:48; Start 03/02/20 at 21:00; Stop 03/03/20 at 08:48; Status DC Tamsulosin HCl (Flomax) 0.4 mg HS PO Last administered on 03/16/20at 21:08; Start 03/02/20 at 23:45 Sodium Chloride 1,000 ml @ 100 mls/hr Q10H IV Last administered on 03/03/20at 11:07; Start 03/03/20 at 10:00; Stop 03/03/20 at 14:58; Status DC Ondansetron HCl (Zofran) 4 mg PRN Q4HRS PRN IV NAUSEA/VOMITING Last administered on 03/04/20at 22:31; Start 03/03/20 at 09:45; Stop 03/05/20 at 16 :15; Status DC Acetaminophen (Tylenol Supp) 650 mg PRN Q4HRS PRN NJ TEMP OVER 100.4F OR MILD PAIN; Start 03/03/20 at 09:45 Polyethylene Glycol (miraLAX PACKET) 17 gm DAILY PO Last administered on 03/04/20at 09:21; Start 03/03/20 at 10:00; Stop 03/06/20 at 10:25; Status DC Bisacodyl (Dulcolax Supp) 10 mg PRN DAILY PRN [place] CONSTIPATION; Start 03/03/20 at 09:45; Stop 03/06/20 at 10:25; Status DC Bisacodyl (Dulcolax Tab) 10 mg PRN DAILY PRN PO CONSTIPATION Last administered on 03/03/20at 13:47; Start 03/03/20 at 09:45; Stop 03/06/20 at 10:25; Status DC Psyllium Hydrophilic Mucilloid (Metamucil Fiber Packet) 1 pkt QHS PO Last admin istered on 03/04/20at 21:03; Start 03/03/20 at 21:00; Stop 03/06/20 at 10:25; Status DC Polyethylene Glycol (miraLAX PACKET) 17 gm QHS PO Last administered on 03/04/20at 21:03; Start 03/03/20 at 21:00; Stop 03/06/20 at 10:25; Status DC Docusate Sodium (Colace) 100 mg DAILY PO Last administered on 03/04/20at 09:21; Start 03/03/20 at 12:00; Stop 03/06/20 at 10:25; Status DC Amino Acids/ Glycerin/ Electrolytes 1,000 ml @ 80 mls/hr [id number] IV Last administered on 03/07/20at 02:41; Start 03/03/20 at 15:00; Stop 03/07/20 at 13:22; Status DC Furosemide (Lasix) 40 mg 1X ONCE IVP Last administered on 03/03/20at 16:48; Start 03/03/20 at 15:00; Stop 03/03/20 at 15:01; Status DC Iohexol (Omnipaque 300 Mg/ml) 75 ml 1X ONCE IV Last administered on 03/03/20at 16:33; Start 03/03/20 at 16:15; Stop 03/03/20 at 16:16; Status DC Info (CONTRAST GIVEN -- Rx MONITORING) 1 each PRN DAILY PRN MC SEE COMMENTS; Start 03/03/20 at 16:15; Stop 03/05/20 at 16:15; Status DC Bisacodyl (Dulcolax Supp) 10 mg 1X ONCE NJ Last administered on 03/04/20at 12:18; Start 03/04/20 at 10:00; Stop 03/04/20 at 10:05; Status DC Cefoxitin Sodium (Mefoxin) 2 gm 1X PREOP IVP Last administered on 03/05/20at 13:09; Start 03/05/20 at 10:00; Stop 03/08/20 at 11:05; Status DC Lidocaine (Lidoderm) 1 patch DAILY TD ; Start 03/04/20 at 16:30; Status Cancel Miscellaneous (Lidoderm Patch Removal) 1 ea QHS MC ; Start 03/04/20 at 21:00; Status Cancel Ondansetron HCl (Zofran) 4 mg PRN Q6HRS PRN IVP NAUSEA/VOMITING; Start 03/05/20 at 07:15; Stop 03/05/20 at 20:00; Status DC Fentanyl Citrate (Fentanyl 2ml Vial) 25 mcg PRN Q5MIN PRN IVP MILD PAIN 1-3; Start 03/05/20 at 07:15; Stop 03/05/20 at 20:00; Status DC Fentanyl Citrate (Fentanyl 2ml Vial) 50 mcg PRN Q5MIN PRN IVP MODERATE TO SEVERE PAIN; Start 03/05/20 at 07:15; Stop 03/05/20 at 20:00; Status DC Morphine Sulfate (Morphine Sulfate) 1 mg PRN Q10MIN PRN IVP SEVERE PAIN 7-10; Start 03/05/20 at 07:15; Stop 03/05/20 at 20:00; Status DC Ringer's Solution 1,000 ml @ 30 mls/hr Q24H IV Last administered on 03/05/20at 09:59; Start 03/05/20 at 07:05; Stop 03/05/20 at 19:04; Status DC Lidocaine HCl (Xylocaine-Mpf 1% 2ml Vial) 2 ml 1X PRN PRN ID IV START; Start 03/05/20 at 07:15; Stop 03/05/20 at 20:00; Status DC Hydromorphone HCl (Dilaudid) 0.5 mg PRN Q10MIN PRN IVP SEV PAIN, Second choice; Start 03/05/20 at 07:15; Stop 03/05/20 at 20:00; Status DC Prochlorperazine Edisylate (Compazine) 5 mg PACU PRN PRN IVP NAUSEA, MRX1; Start 03/05/20 at 07:15; Stop 03/06/20 at 07:14; Status DC Pantoprazole Sodium (PROTONIX VIAL for IV PUSH) 40 mg DAILYAC IVP Last administered on 03/17/20at 07:16; Start 03/05/20 at 10:30 Propofol (Diprivan) 200 mg STK-MED ONCE IV ; Start 03/05/20 at 10:23; Stop 03/05/20 at 10:23; Status DC Lidocaine HCl (Lidocaine Pf 2% Vial) 5 ml STK-MED ONCE .ROUTE ; Start 03/05/20 at 10:23; Stop 03/05/20 at 10:23; Status DC Ondansetron HCl (Zofran) 4 mg STK-MED ONCE .ROUTE ; Start 03/05/20 at 10:23; Stop 03/05/20 at 10:23; Status DC Dexamethasone Sodium Phosphate (Decadron) 4 mg STK-MED ONCE .ROUTE ; Start 03/05/20 at 10:23; Stop 03/05/20 at 10:23; Status DC Succinylcholine Chloride (Anectine) 200 mg STK-MED ONCE .ROUTE ; Start 03/05/20 at 10:23; Stop 03/05/20 at 10:23; Status DC Rocuronium Jefferson (Zemuron) 50 mg STK-MED ONCE .ROUTE ; Start 03/05/20 at 10:24; Stop 03/05/20 at 10:24; Status DC Fentanyl Citrate (Fentanyl 2ml Vial) 100 mcg STK-MED ONCE .ROUTE ; Start 03/05/20 at 10:24; Stop 03/05/20 at 10:24; Status DC Iohexol (Omnipaque 300 Mg/ml) 50 ml STK-MED ONCE .ROUTE Last administered on 03/05/20at 11:43; Start 03/05/20 at 10:41; Stop 03/05/20 at 10:41; Status DC Bupivacaine HCl/ Epinephrine Bitart (Sensorcain-Epi 0.5%-1:[id number] Mpf) 30 ml STK-MED ONCE .ROUTE ; Start 03/05/20 at 10:42; Stop 03/05/20 at 10:42; Status DC Phenylephrine HCl (PHENYLEPHRINE in 0.9% NACL PF) 1 mg STK-MED ONCE IV ; Start 03/05/20 at 12:13; Stop 03/05/20 at 12:14; Status DC Ephedrine Sulfate (ePHEDrine PF IN SALINE SYRINGE) 50 mg STK-MED ONCE IV ; Start 03/05/20 at 12:13; Stop 03/05/20 at 12:14; Status DC Phenylephrine HCl (Devin-Synephrine Inj) 10 mg STK-MED ONCE .ROUTE ; Start 03/05/20 at 12:15; Stop 03/05/20 at 12:15; Status DC Rocuronium Jefferson (Zemuron) 50 mg STK-MED ONCE .ROUTE ; Start 03/05/20 at 12:27; Stop 03/05/20 at 12:27; Status DC Cefoxitin Sodium (Mefoxin) 1 gm STK-MED ONCE IVP ; Start 03/05/20 at 12:57; Stop 03/05/20 at 12:57; Status DC Albumin Human 500 ml @ As Directed STK-MED ONCE IV ; Start 03/05/20 at 13:08; Stop 03/05/20 at 13:08; Status DC Albumin Human 500 ml @ As Directed STK-MED ONCE IV ; Start 03/05/20 at 13:13; Stop 03/05/20 at 13:14; Status DC Phenylephrine HCl (Devin-Synephrine Inj) 10 mg STK-MED ONCE .ROUTE ; Start 03/05/20 at 13:35; Stop 03/05/20 at 13:35; Status DC Phenylephrine HCl (Devin-Synephrine Inj) 10 mg STK-MED ONCE .ROUTE ; Start 03/05/20 at 13:48; Stop 03/05/20 at 13:49; Status DC Sevoflurane (Ultane) 90 ml STK-MED ONCE IH ; Start 03/05/20 at 14:30; Stop 03/05/20 at 14:30; Status DC Phenylephrine HCl (Devin-Synephrine Inj) 10 mg STK-MED ONCE .ROUTE ; Start 03/05/20 at 14:35; Stop 03/05/20 at 14:36; Status DC Midazolam HCl 100 mg/Sodium Chloride 100 ml @ 1 mls/hr CONT PRN IV SEE I/O RECORD Last administered on 03/13/20at 19:50; Start 03/05/20 at 15:15 Fentanyl Citrate 30 ml @ 2.5 mls/hr CONT PRN PRN IV PER PROTOCOL Last administered on 03/15/20at 02:05; Start 03/05/20 at 15:15 Naloxone HCl (Narcan) 0.4 mg PRN Q2MIN PRN IV SEE INSTRUCTIONS; Start 03/05/20 at 15:15; Stop 03/06/20 at 09:45; Status DC Sodium Chloride 1,000 ml @ 25 mls/hr Q24H IV ; Start 03/05/20 at 15:13; Stop 03/06/20 at 14:24; Status DC Norepinephrine Bitartrate 8 mg/ Dextrose 258 ml @ 15.287 mls/ hr CONT PRN IV PER PROTOCOL Last administered on 03/11/20at 18:15; Start 03/05/20 at 15:30 Enoxaparin Sodium (Lovenox 40mg Syringe) 40 mg Q24H SQ Last administered on 06/26at 08:16; Start 03/06/20 at 08:00 Sodium Chloride (Normal Saline Flush) 3 ml QSHIFT PRN IV AFTER MEDS AND BLOOD DRAWS; Start 03/05/20 at 16:15 Ringer's Solution 1,000 ml @ 100 mls/hr Q10H IV Last administered on 03/08/20at 11:19; Start 03/05/20 at 16:09; Stop 03/08/20 at 18:54; Status DC Naloxone HCl (Narcan) 0.4 mg PRN Q2MIN PRN IV SEE INSTRUCTIONS; Start 03/05/20 at 16:15 Sodium Chloride 1,000 ml @ 25 mls/hr Q24H IV ; Start 03/05/20 at 16:09; Stop 03/06/20 at 14:24; Status DC Morphine Sulfate 30 ml @ 0 mls/hr CONT PRN PRN IV PER PROTOCOL; Start 03/05/20 at 16:15; Stop 03/06/20 at 09:48; Status DC Ondansetron HCl (Zofran) 4 mg PRN Q6HRS PRN IVP NAUESA, 1ST CHOICE; Start 03/05/20 at 16:15 Piperacillin Sod/ Tazobactam Sod 3.375 gm/Sodium Chloride 50 ml @ 100 mls/hr Q6HRS IV Last administered on 03/17/20at 05:58; Start 03/05/20 at 17:00 Ringer's Solution 1,000 ml @ 999 mls/hr 1X ONCE IV Last administered on 03/05/20at 20:59; Start 03/05/20 at 20:00; Stop 03/05/20 at 21:00; Status DC Vasopressin 20 unit/Dextrose 101 ml @ 12 mls/hr CONT PRN IV SEE I/O RECORD Last administered on 03/11/20at 06:25; Start 03/05/20 at 20:00 Ringer's Solution 1,000 ml @ 999 mls/hr 1X ONCE IV Last administered on 03/06/20at 01:07; Start 03/06/20 at 01:00; Stop 03/06/20 at 02:00; Status DC Ringer's Solution 1,000 ml @ 999 mls/hr 1X ONCE IV Last administered on 03/06/20at 05:18; Start 03/06/20 at 05:00; Stop 03/06/20 at 06:00; Status DC Ringer's Solution 1,000 ml @ 999 mls/hr 1X ONCE IV Last administered on 03/06/20at 09:54; Start 03/06/20 at 09:45; Stop 03/06/20 at 10:45; Status DC Ringer's Solution 1,000 ml @ 999 mls/hr 1X ONCE IV Last administered on 03/06/20at 13:40; Start 03/06/20 at 13:45; Stop 03/06/20 at 14:45; Status DC Ringer's Solution 1,000 ml @ 999 mls/hr 1X ONCE IV Last administered on 03/06/20at 18:43; Start 03/06/20 at 18:15; Stop 03/06/20 at 19:15; Status DC Sodium Chloride 200 ml @ 50 mls/hr 1X ONCE IV Last administered on 03/07/20at 13:49; Start 03/07/20 at 13:30; Stop 03/07/20 at 17:29; Status DC Potassium Phosphate 13.6 mmol/Sodium Chloride 254.5333 ml @ 62.5 mls/hr Q4H IV Last administered on 03/08/20at 16:52; Start 03/08/20 at 08:30; Stop 03/08/20 at 20:29; Status DC Magnesium Sulfate 50 ml @ 25 mls/hr 1X ONCE IV Last administered on 03/08/20at 08:00; Start 03/08/20 at 08:00; Stop 03/08/20 at 09:59; Status DC Sodium Chloride 300 ml @ 50 mls/hr 1X ONCE IV Last administered on 03/08/20at 08:00; Start 03/08/20 at 08:00; Stop 03/08/20 at 13:59; Status DC Info (Tpn Per Pharmacy) 1 each PRN DAILY PRN MC SEE COMMENTS Last administered on 03/16/20at 11:03; Start 03/08/20 at 11:00 Sodium Chloride 100 meq/Potassium Chloride 50 meq/ Potassium Phosphate 18 mmol/ Magnesium Sulfate 15 meq/Calcium Gluconate 10 meq/ Multivitamins 10 ml/Chromium/ Copper/Manganese/ Seleni/Zn 1 ml/ Total Parenteral Nutrition/Amino Acids/Dextrose/ Fat Emulsion Intravenous 1,512 ml @ 63 mls/hr TPN CONT IV ; Start 03/08/20 at 22:00; Stop 03/08/20 at 11:31; Status DC Sodium Chloride 100 meq/Potassium Chloride 50 meq/ Potassium Phosphate 18 mmol/ Magnesium Sulfate 15 meq/Calcium Gluconate 10 meq/ Multivitamins 10 ml/Chromium/ Copper/Manganese/ Seleni/Zn 1 ml/ Total Parenteral Nutrition/Amino Acids/Dextrose/ Fat Emulsion Intravenous 1,920 ml @ 80 mls/hr TPN CONT IV Last administered on 03/08/20at 23:04; Start 03/08/20 at 22:00; Stop 03/09/20 at 21:59; Status DC Potassium Chloride/Water 100 ml @ 100 mls/hr 1X ONCE IV Last administered on 03/08/20at 15:51; Start 03/08/20 at 16:00; Stop 03/08/20 at 16:59; Status DC Sodium Chloride 100 meq/Potassium Chloride 50 meq/ Potassium Phosphate 18 mmol/ Magnesium Sulfate 15 meq/Calcium Gluconate 10 meq/ Multivitamins 10 ml/Chromium/ Copper/Manganese/ Seleni/Zn 1 ml/ Total Parenteral Nutrition/Amino Acids/Dextrose/ Fat Emulsion Intravenous 1,920 ml @ 80 mls/hr TPN CONT IV Last administered on 03/09/20at 22:00; Start 03/09/20 at 22:00; Stop 03/10/20 at 21:59; Status DC Sodium Phosphate 15 mmol/Sodium Chloride 255 ml @ 63.75 mls/ hr 1X ONCE IV Last administered on 03/10/20at 08:45; Start 03/10/20 at 09:00; Stop 03/10/20 at 12:59; Status DC Sodium Chloride 100 meq/Sodium Phosphate 15 mmol/ Potassium Chloride 50 meq/ Potassium Phosphate 18 mmol/ Magnesium Sulfate 15 meq/Calcium Gluconate 10 meq/ Multivitamins 10 ml/Chromium/ Copper/Manganese/ Seleni/Zn 1 ml/ Total Parenteral Nutrition/Amino Acids/Dextrose/ Fat Emulsion Intravenous 1,920 ml @ 80 mls/hr TPN CONT IV Last administered on 03/10/20at 21:41; Start 03/10/20 at 22:00; Stop 03/11/20 at 21:59; Status DC Sodium Phosphate 15 mmol/Sodium Chloride 255 ml @ 63.75 mls/ hr 1X ONCE IV Last administered on 03/11/20at 12:00; Start 03/11/20 at 10:00; Stop 03/11/20 at 13:59; Status DC Sodium Chloride 100 meq/Sodium Phosphate 15 mmol/ Potassium Chloride 50 meq/ Potassium Phosphate 18 mmol/ Magnesium Sulfate 15 meq/Calcium Gluconate 10 meq/ Multivitamins 10 ml/Chromium/ Copper/Manganese/ Seleni/Zn 1 ml/ Total Parenteral Nutrition/Amino Acids/Dextrose/ Fat Emulsion Intravenous 1,920 ml @ 80 mls/hr TPN CONT IV Last administered on 03/11/20at 21:52; Start 03/11/20 at 22:00; Stop 03/12/20 at 21:59; Status DC Dexmedetomidine HCl 400 mcg/ Sodium Chloride 100 ml @ 0 mls/hr CONT PRN IV SEE COMMENTS Last administered on 03/15/20at 02:04; Start 03/11/20 at 10:00 Sodium Chloride 500 ml @ 500 mls/hr 1X PRN PRN IV SEE COMMENTS; Start 03/11/20 at 10:00 Atropine Sulfate (ATROPINE 0.5mg SYRINGE) 0.5 mg PRN Q5MIN PRN IV SEE COMMENTS; Start 03/11/20 at 10:00 Calcium Gluconate (Calcium Gluconate) 1,000 mg 1X ONCE IVP Last administered on 03/11/20at 12:35; Start 03/11/20 at 12:30; Stop 03/11/20 at 12:31; Status DC Sodium Chloride 80 meq/Sodium Phosphate 15 mmol/ Potassium Chloride 50 meq/ Potassium Phosphate 15 mmol/ Magnesium Sulfate 15 meq/Calcium Gluconate 10 meq/ Multivitamins 10 ml/Chromium/ Copper/Manganese/ Seleni/Zn 1 ml/ Total Parenteral Nutrition/Amino Acids/Dextrose/ Fat Emulsion Intravenous 1,920 ml @ 80 mls/hr TPN CONT IV Last administered on 03/12/20at 22:06; Start 03/12/20 at 22:00; Stop 03/13/20 at 21:59; Status DC Metoprolol Tartrate (Lopressor Vial) 2.5 mg Q6HRS IVP Last administered on 03/14/20at 08:50; Start 03/12/20 at 12:00; Stop 03/14/20 at 11:24; Status DC Albuterol Sulfate (Ventolin Neb Soln) 2.5 mg 1X ONCE NEB Last administered on 03/13/20at 00:00; Start 03/13/20 at 00:00; Stop 03/13/20 at 00:01; Status DC Sodium Chloride 80 meq/Sodium Phosphate 15 mmol/ Potassium Chloride 50 meq/ Potassium Phosphate 15 mmol/ Magnesium Sulfate 15 meq/Calcium Gluconate 10 meq/ Multivitamins 10 ml/Chromium/ Copper/Manganese/ Seleni/Zn 1 ml/ Total Parenteral Nutrition/Amino Acids/Dextrose/ Fat Emulsion Intravenous 1,920 ml @ 80 mls/hr TPN CONT IV Last administered on 03/13/20at 22:01; Start 03/13/20 at 22:00; Stop 03/14/20 at 21:59; Status DC Albuterol/ Ipratropium (Duoneb) 3 ml RTQID NEB Last administered on 03/17/20at 07:58; Start 03/13/20 at 12:00 Sodium Chloride 80 meq/Sodium Phosphate 15 mmol/ Potassium Chloride 50 meq/ Potassium Phosphate 15 mmol/ Magnesium Sulfate 15 meq/Calcium Gluconate 10 meq/ Multivitamins 10 ml/Chromium/ Copper/Manganese/ Seleni/Zn 1 ml/ Total Parenteral Nutrition/Amino Acids/Dextrose/ Fat Emulsion Intravenous 1,920 ml @ 80 mls/hr TPN CONT IV Last administered on 03/14/20at 21:54; Start 03/14/20 at 22:00; Stop 03/15/20 at 21:59; Status DC Metoprolol Tartrate (Lopressor Vial) 5 mg Q6HRS IVP Last administered on 03/14/20at 18:25; Start 03/14/20 at 12:00; Stop 03/15/20 at 14:17; Status DC Hydralazine HCl (Apresoline Inj) 10 mg PRN Q4HRS PRN IVP ELEVATED BP, SEE COMMENTS; Start 03/14/20 at 11:30 Sodium Chloride 80 meq/Sodium Phosphate 15 mmol/ Potassium Chloride 50 meq/ Potassium Phosphate 15 mmol/ Magnesium Sulfate 15 meq/Calcium Gluconate 10 meq/ Multivitamins 10 ml/Chromium/ Copper/Manganese/ Seleni/Zn 1 ml/ Total Parenteral Nutrition/Amino Acids/Dextrose/ Fat Emulsion Intravenous 1,920 ml @ 80 mls/hr TPN CONT IV Last administered on 03/15/20at 22:10; Start 03/15/20 at 22:00; Stop 03/16/20 at 21:59; Status DC Metoprolol Tartrate (Lopressor Vial) 2.5 mg Q6HRS IVP Last administered on 03/16/20at 17:18; Start 03/15/20 at 18:00; Stop 03/16/20 at 17:45; Status DC Albumin Human 500 ml @ 125 mls/hr 1X ONCE IV Last administered on 03/16/20at 10:14; Start 03/16/20 at 09:15; Stop 03/16/20 at 13:14; Status DC Furosemide (Lasix) 40 mg 1X ONCE IVP Last administered on 03/16/20at 12:17; Start 03/16/20 at 09:15; Stop 03/16/20 at 09:16; Status DC Sodium Chloride 80 meq/Sodium Phosphate 15 mmol/ Potassium Chloride 50 meq/ Potassium Phosphate 15 mmol/ Magnesium Sulfate 15 meq/Calcium Gluconate 10 meq/ Multivitamins 10 ml/Chromium/ Copper/Manganese/ Seleni/Zn 1 ml/ Total Parenteral Nutrition/Amino Acids/Dextrose/ Fat Emulsion Intravenous 1,920 ml @ 80 mls/hr TPN CONT IV Last administered on 03/16/20at 22:11; Start 03/16/20 at 22:00; Stop 03/17/20 at 21:59 Metoprolol Tartrate (Lopressor) 12.5 mg Q6HRS PO Last administered on 03/17/20at 05:59; Start 03/16/20 at 18:00 Metoprolol Tartrate (Lopressor) 12.5 mg Q6HRS PO ; Start 03/16/20 at 18:00; Status UNV Metoprolol Tartrate (Lopressor Vial) 5 mg PRN Q6HRS PRN IVP HYPERTENSION Last administered on 03/17/20at 07:16; Start 03/17/20 at 02:00 Active Scripts Active Reported Flomax (Tamsulosin Hcl) 0.4 Mg Cap.er.24h 1 Cap PO QHS Vitals/I & O Vital Sign - Last 24 Hours 03/16/20 03/16/20 03/16/20 03/16/20 09:00 10:00 11:00 11:02 Pulse 100 112 106 Resp 18 18 18 B/P (MAP) 121/84 (96) 124/86 (99) Pulse Ox 98 98 98 98 O2 Delivery Nasal Cannula Nasal Cannula Nasal Cannula O2 Flow Rate 2.0 2.0 2.0 2.0 03/16/20 03/16/20 03/16/20 03/16/20 12:00 13:23 15:30 16:00 Temp 98.6 98.6 Pulse 106 99 96 B/P (MAP) 119/87 (98) 119/87 125/82 (96) Pulse Ox 98 95 96 O2 Delivery Nasal Cannula Room Air Room Air O2 Flow Rate 2.0 03/16/20 03/16/20 03/16/20 03/16/20 17:18 18:19 20:00 20:00 Temp 97.6 97.6 Pulse 168 160 99 B/P (MAP) 125/82 118/81 114/75 (88) Pulse Ox 98 97 O2 Delivery Room Air Room Air 03/16/20 03/17/20 03/17/20 03/17/20 20:00 00:00 00:16 02:00 Temp 97.9 97.9 Pulse 170 92 118 B/P (MAP) 103/75 (84) 121/72 106/89 (95) Pulse Ox 97 97 O2 Delivery Room Air Room Air Room Air 03/17/20 03/17/20 03/17/20 03/17/20 04:00 05:59 07:16 08:01 Temp 97.8 97.8 Pulse 86 91 154 B/P (MAP) 103/72 (82) 106/64 106/78 Pulse Ox 97 98 O2 Delivery Room Air Room Air Intake and Output 03/16/20 03/16/20 03/17/20 15:00 23:00 07:00 Intake Total 50 ml 1591 ml 886 ml Output Total 2380 ml 1795 ml 1035 ml Balance -2330 ml -204 ml -149 ml Nutrition Consultation Dietary Evaluation: Recommendations by RD: Dietary education by RD, Increase Calorie Intake, PPN/TPN Comments: Continue w/TPN for nutrition at this time, recommend adjust macronutrients to following AA, 250g dextrose, 20g lipids Expected Outcomes/Goals: New goal 03/08: TPN to meet >65% est needs while intubated - met, new goal established New goal 03/15: TPN infusion to meet >75% est needs Malnutrition Findings: Food and Nutrition Intake (Mod: <75% est energy req 7days Weight Status: Appropriate Justicifation of Admission Dx: Justifications for Admission: Justification of Admission Dx: Yes RAIN CRYSTAL MD Mar 17, 2020 08:43
[2020-03-17] MEDS: ENOXAPARIN 40 MG/0.4 ML SYRINGE. SQ SCH ×2 (09:00→12:52)
[2020-03-17 09:44] LABS: HEMATOCRIT 28.7 % (39.0-53.0); HEMOGLOBIN 9.4 g/dL (13.0-17.5); RED BLOOD COUNT 3.54 x10^6/uL (4.30-5.70); RED CELL DISTRIBUTION WIDTH 28.2 % (11.5-14.5); WHITE BLOOD COUNT 7.6 x10^3/uL (4.0-11.0)
--- NOTE | 2020-03-17 09:51 | PDOC ---
PULMONARY PROGRESS NOTES Subjective Patient extubated 03/15 on ra, no sob, has cough, tachycardic Vitals Vital Signs Date Time Temp Pulse Resp B/P (MAP) Pulse Ox O2 Delivery O2 Flow Rate FiO2 03/17/20 08:01 98 Room Air 03/17/20 07:16 154 106/78 03/17/20 04:00 97.8 97.8 03/16/20 12:00 2.0 03/16/20 11:00 18 Comments ros as mentioned as above other sys otherwise neg ROS: No Nausea, No Chest Pain, No Increase Cough General: Alert HEENT: Other (nc at perrl nose thrat clear neck no lad no thyromegaly) Lungs: Clear Cardiovascular: Other (tachy) Abdomen: Soft, Other (Dressing in place, jace drain ) Neuro Exam: Alert Extremities: No Edema Skin: Warm Labs Laboratory Tests Test 03/16/20 05:00 03/17/20 06:00 Sodium Level 139 mmol/L (136-145) 140 mmol/L (136-145) Potassium Level 3.5 mmol/L (3.5-5.1) 3.8 mmol/L (3.5-5.1) Chloride Level 108 mmol/L (98-107) 108 mmol/L (98-107) Carbon Dioxide Level 26 mmol/L (21-32) 25 mmol/L (21-32) Anion Gap 5 (6-14) 7 (6-14) Blood Urea Nitrogen 16 mg/dL (8-26) 13 mg/dL (8-26) Creatinine 0.5 mg/dL (0.7-1.3) 0.5 mg/dL (0.7-1.3) Estimated GFR (Cockcroft-Gault) 163.9 163.9 Glucose Level 90 mg/dL (70-99) 97 mg/dL (70-99) Calcium Level 7.0 mg/dL (8.5-10.1) 6.9 mg/dL (8.5-10.1) Phosphorus Level 3.2 mg/dL (2.6-4.7) 3.8 mg/dL (2.6-4.7) Magnesium Level 2.0 mg/dL (1.8-2.4) 2.1 mg/dL (1.8-2.4) Laboratory Tests Test 03/17/20 06:00 Sodium Level 140 mmol/L (136-145) Potassium Level 3.8 mmol/L (3.5-5.1) Chloride Level 108 mmol/L (98-107) Carbon Dioxide Level 25 mmol/L (21-32) Anion Gap 7 (6-14) Blood Urea Nitrogen 13 mg/dL (8-26) Creatinine 0.5 mg/dL (0.7-1.3) Estimated GFR (Cockcroft-Gault) 163.9 Glucose Level 97 mg/dL (70-99) Calcium Level 6.9 mg/dL (8.5-10.1) Phosphorus Level 3.8 mg/dL (2.6-4.7) Magnesium Level 2.1 mg/dL (1.8-2.4) Medications Active Scripts Medications Dose Route/Sig Max Daily Dose Days Date Category Flomax (Tamsulosin Hcl) 0.4 Mg Cap.er.24h 1 Cap PO QHS 03/02/20 Reported Comments CXR reviewed IMPRESSION: 1. Stable left basilar opacities and small left pleural effusion. Impression . IMPRESSION: 1. Acute hypoxemic respiratory failure, expected status post surgical intervention for colonic mass. Status post extubation 03/15 on ra 2. Obstructing colonic cancer. 3. History of prostate cancer. 4. Severe protein malnutrition present upon admission. 5. Tobacco dependent. 6. Chronic obstructive pulmonary disease. 7. SARS-CoV-2 negative. 8. Cholelithiasis. 9. Hyponatremia. 10. Protein malnutrition, present upon admission. 11. Benign prostatic hypertrophy. 12. S/p open right colon resection, partial resection of duodenum, placement of duodenostomy tube, cholecystectomy, ghost ileostomy 13. Acute blood loss anemia 14. Respiratory alkalosis 15. Hypocalcemia-- correct calcium WNL 16. SVT, ? afib w rvr per cardiology 17. Critical care myopathy Diagnosis: A. 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 - Lymphovascular tumor invasion present. - Metastatic carcinoma involving 1 of 14 mesocolic lymph nodes. - Tumor involvement of radial margin of posterior aspect of cecum and proximal ascending colon. - Proximal (distal ileum) and distal (ascending colon) margins of resection negative for tumor. - Hypertrophy of muscular wall of appendix with focal serosal lymphovascular tumor invasion of proximal appendix. - Omentum negative for tumor. - Serosal adhesions of colon and appendix, focal. . B. Gallbladder, open cholecystectomy: - Polypoid cholesterolosis. - Chronic cholecystitis. . C. Tissue designated "right upper quadrant": - Segments of tumor showing invasive colorectal adenocarcinoma with prominent mucinous component, moderately differentiated. . (JPM:akila; 03/07/2020) . Surgical Pathology Cancer Case Summary Protocol posting date: February 2017 COLON AND RECTUM: Resection, Including Transanal Disk Excision of Rectal Neoplasms Procedure ___ Right colectomy Tumor Site ___ Cecum ___ Ileocecal valve ___ Right (ascending) colon Tumor Size Greatest dimension: 12.5 cm Macroscopic Tumor Perforation ___ Present Histologic Type ___ Adenocarcinoma with prominent mucinous component and with focal poorly differentiated areas Histologic Grade ___ Other: Moderately to focally poorly differentiated Tumor Extension ___ Tumor invades through the muscularis propria into pericolorectal tissue Margins Proximal Margin ___ Uninvolved by invasive carcinoma + Distance of tumor from margin: 5.4 cm Distal Margin ___ Uninvolved by invasive carcinoma + Distance of tumor from margin: 11.2 cm ___ Involved by invasive carcinoma Radial or Mesenteric Margin ___ Involved by invasive carcinoma Lymphovascular Invasion ___ Present Perineural Invasion ___ Not identified + Type of Polyp in Which Invasive Carcinoma Arose + ___ Tubulovillous adenoma Tumor Deposits ___ Not identified Regional Lymph Nodes Number of Lymph Nodes Involved: 1 Number of Lymph Nodes Examined: 14 Pathologic Stage Classification (pTNM, AJCC 8th Edition) (Note M) Primary Tumor (pT) ___ pT4b: Tumor directly invades or adheres to adjacent organs or structures Regional Lymph Nodes (pN) ___ pN1: One to three regional lymph nodes are positive (tumor in lymph nodes measuring > or = 0.2 mm), or any number of tumor deposits are present and all identifiable lymph nodes are negative + Additional Pathologic Findings + ___ None identified (JPM:pit 03/08/2020) MBR 03/08/2020 0951 Local Plan . 02 titration will dc alb tachycardic, cont atrovent Speech evaluation DC NG tube Avoid sedation IV metoprolol, tachy per cardiology DVT GI prophylaxis Monitor H&H Follow nephrology recs Cont. TPN for nutrition Cont. ABX DVT GI prophylaxis pt/ot D/W RN and RT, pt LASHONDA FRAZIER MD Mar 17, 2020 09:51
[2020-03-17] MEDS ORDERED: VITS A & D/LANOLIN TOPICAL OINTMENT 42GM TUBE. TP PRN (10:15)
[2020-03-17] MEDS: TPN PER PHARMACY MC PRN (10:22)
--- NOTE | 2020-03-17 12:00 | NUR ---
Patient's HR in the 160's-170's, SBP in the low 100's. 12 lead ekg didn't detect any P wave. Dr Macdonald paged. Orders to give 500cc bolus and .5 of IV Digoxin.
--- NOTE | 2020-03-17 12:22 | EKG ---
[facility] [address] [place] [address] Test Date: 2020-03-17 Test Time: 12:18:04 Pat Name: FABIANO HELLER Department: Room: 103 1 Gender: M Automation Tech: : [id number] Requested By: JAMMIE HARDING Order Number: [id number] Reading MD: Measurements Intervals [place] Rate: 160 P: TN: QRS: 33 QRSD: 82 T: 180 QT: 284 QTc: 466 Interpretive Statements IRREGULAR RHYTHM, NO P-WAVE FOUND LOW LIMB LEAD VOLTAGE T ABNORMALITY IN ANTEROLATERAL LEADS ABNORMAL ECG RI6.01 Compared to ECG 03/02/2020 14:53:24 T-wave abnormality now present Sinus tachycardia no longer present
[2020-03-17] MEDS: IPRATROPIUM BROMIDE 0.5 MG/2.5 ML NEBU. NEB SCH ×3 (12:29→19:59)
[2020-03-17] MEDS ORDERED: DIGOXIN IV 500 MCG/2 ML AMPUL. IV ONE (12:45)
[2020-03-17] MEDS ORDERED: IV NORMAL SALINE 500ML BAG 500 ML IV ONE (12:45)
--- NOTE | 2020-03-17 13:23 | NUR ---
Pharmacy TPN Dosing Note S: FABIANO HELLER is a 69 year old M Currently receiving Central Continuous TPN started 03/08/20 B:Pertinent PMH: NPO/SBO Height: 6 feet, 3 inches Weight: 90.0 kg Current diet: NPO - having swallow study done today LABS: Sodium: 140 Potassium: 3.8 Chloride: 108 Calcium: 6.9 Corrected Calcium: 9.46 Magnesium: 2.1 CO2: 25 SCr: 0.5 Glucose: 97 Albumin: 0.8 AST: 16 ALT: 15 TPN FORMULA: TPN TYPE: Central Continuous AMINO ACIDS: 80 gm DEXTROSE: 250 gm LIPIDS: 20 gm SODIUM CHLORIDE: 80 mEq SODIUM ACETATE: - mEq SODIUM PHOSPHATE: 15 mmol POTASSIUM CHLORIDE: 50 mEq POTASSIUM ACETATE: - mEq POTASSIUM PHOSPHATE: 15 mmol MAGNESIUM: 15 mEq CALCIUM: 10 mEq INSULIN: - units MULTIPLE VITAMIN: 10 ml TRACE ELEMENTS: 1 ml ml(s) TPN PLAN: no changes in tpn R: Continue TPN AT SAME RATE Will monitor electrolytes, glucose, and tolerance to TPN. NOMI LANGLEY FORMERLY [facility] [place], 03/17/20 0419
--- NOTE | 2020-03-17 13:47 | PDOC ---
SURGICAL PROGRESS NOTE Subjective Pt looks more comfortable, howard clears, passing some stools Vital Signs Vital Signs Date Time Temp Pulse Resp B/P (MAP) Pulse Ox O2 Delivery O2 Flow Rate FiO2 03/17/20 13:00 156 105/85 (92) 99 Room Air 03/17/20 12:00 97.8 97.8 03/16/20 12:00 2.0 03/16/20 11:00 18 current heart rate low 100 I&O Intake and Output 03/17/20 07:00 Intake Total 2527 ml Output Total 5260 ml Balance -2733 ml IV Total 2527 ml Output Urine Total 4890 ml Drainage Total 370 ml General: Alert, Cooperative, No acute distress Abdomen: Soft, No tenderness, Other (AVI serous) Labs Laboratory Tests Test 03/16/20 05:00 03/17/20 06:00 03/17/20 09:10 Sodium Level 139 mmol/L (136-145) 140 mmol/L (136-145) Potassium Level 3.5 mmol/L (3.5-5.1) 3.8 mmol/L (3.5-5.1) Chloride Level 108 mmol/L (98-107) 108 mmol/L (98-107) Carbon Dioxide Level 26 mmol/L (21-32) 25 mmol/L (21-32) Anion Gap 5 (6-14) 7 (6-14) Blood Urea Nitrogen 16 mg/dL (8-26) 13 mg/dL (8-26) Creatinine 0.5 mg/dL (0.7-1.3) 0.5 mg/dL (0.7-1.3) Estimated GFR (Cockcroft-Gault) 163.9 163.9 Glucose Level 90 mg/dL (70-99) 97 mg/dL (70-99) Calcium Level 7.0 mg/dL (8.5-10.1) 6.9 mg/dL (8.5-10.1) Phosphorus Level 3.2 mg/dL (2.6-4.7) 3.8 mg/dL (2.6-4.7) Magnesium Level 2.0 mg/dL (1.8-2.4) 2.1 mg/dL (1.8-2.4) White Blood Count 7.6 x10^3/uL (4.0-11.0) Red Blood Count 3.54 x10^6/uL (4.30-5.70) Hemoglobin 9.4 g/dL (13.0-17.5) Hematocrit 28.7 % (39.0-53.0) Mean Corpuscular Volume 81 fL (79-100) Mean Corpuscular Hemoglobin 27 pg (25-35) Mean Corpuscular Hemoglobin Concent 33 g/dL (31-37) Red Cell Distribution Width 28.2 % (11.5-14.5) Platelet Count 376 x10^3/uL (140-400) Laboratory Tests Test 03/17/20 06:00 03/17/20 09:10 Sodium Level 140 mmol/L (136-145) Potassium Level 3.8 mmol/L (3.5-5.1) Chloride Level 108 mmol/L (98-107) Carbon Dioxide Level 25 mmol/L (21-32) Anion Gap 7 (6-14) Blood Urea Nitrogen 13 mg/dL (8-26) Creatinine 0.5 mg/dL (0.7-1.3) Estimated GFR (Cockcroft-Gault) 163.9 Glucose Level 97 mg/dL (70-99) Calcium Level 6.9 mg/dL (8.5-10.1) Phosphorus Level 3.8 mg/dL (2.6-4.7) Magnesium Level 2.1 mg/dL (1.8-2.4) White Blood Count 7.6 x10^3/uL (4.0-11.0) Red Blood Count 3.54 x10^6/uL (4.30-5.70) Hemoglobin 9.4 g/dL (13.0-17.5) Hematocrit 28.7 % (39.0-53.0) Mean Corpuscular Volume 81 fL (79-100) Mean Corpuscular Hemoglobin 27 pg (25-35) Mean Corpuscular Hemoglobin Concent 33 g/dL (31-37) Red Cell Distribution Width 28.2 % (11.5-14.5) Platelet Count 376 x10^3/uL (140-400) Problem List Problems Medical Problems: (1) Anemia Status: Acute (2) Colonic mass Status: Acute (3) Fatigue Status: Acute (4) Hypocalcemia Status: Acute (5) Nausea & vomiting Status: Acute (6) SBO (small bowel obstruction) Status: Acute Assessment/Plan s/p right colon appears to be making progress will try fulls in AM Justicifation of Admission Dx: Justifications for Admission: Justification of Admission Dx: Yes MEGAN WILLIAMSON MD Mar 17, 2020 13:47
[2020-03-17] MEDS: TAMSULOSIN 0.4 MG CAP.ER.24H. PO SCH (21:21)
[2020-03-17] MEDS ORDERED: AMINO ACID IV SCH (22:00)
[2020-03-17] MEDS ORDERED: DEXTROSE 70% IV SCH (22:00)
[2020-03-17] MEDS ORDERED: TOTAL PARENTERAL NUTRITION IV SCH (22:00)
[2020-03-17] MEDS ORDERED: [UNRECOGNIZED DRUG - OTHER] IV SCH (22:00)
--- NOTE | 2020-03-17 22:25 | PDOC ---
CARDIOLOGY PROGRESS NOTE SUBJECTIVE: Denies any cardiac symptoms. No chest pain. Eating poorly OBJECTIVE: Vital Signs/I&O: Vital Signs Date Time Temp Pulse Resp B/P (MAP) Pulse Ox O2 Delivery O2 Flow Rate FiO2 03/17/20 22:01 160 129/83 03/17/20 20:00 Room Air 03/17/20 20:00 98.6 99 98.6 03/16/20 12:00 2.0 03/16/20 11:00 18 I & O 03/16/20 03/16/20 03/17/20 15:00 23:00 07:00 Intake Total 50 ml 1591 ml 886 ml Output Total 2380 ml 1795 ml 1085 ml Balance -2330 ml -204 ml -199 ml Objective: a/o x 3 1+ LE edema Soft abd irregular heart tones. non-focal neuro exam. CURRENT MEDICATIONS: Current Medications Medications (Trade) Dose Ordered Sig/Faisal Route PRN Reason Start Time Stop Time Status Last Admin Dose Admin Metoprolol Tartrate (Lopressor Vial) 5 mg PRN Q6HRS PRN IVP HYPERTENSION 03/17/20 02:00 03/17/20 22:01 Albumin Human 500 ml @ 125 mls/hr 1X ONCE IV 03/17/20 08:30 03/17/20 12:29 DC 03/17/20 08:59 Sodium Chloride 80 meq/Sodium Phosphate 15 mmol/ Potassium Chloride 50 meq/ Potassium Phosphate 15 mmol/ Magnesium Sulfate 15 meq/Calcium Gluconate 10 meq/ Multivitamins 10 ml/Chromium/ Copper/Manganese/ Seleni/Zn 1 ml/ Total Parenteral Nutrition/Amino Acids/Dextrose/ Fat Emulsion Intravenous 1,920 ml @ 80 mls/hr TPN CONT IV 03/17/20 22:00 03/18/20 21:59 03/17/20 22:01 Ipratropium [place] (Atrovent) 0.5 mg RTQID NEB 03/17/20 12:00 03/17/20 19:59 Digoxin (Lanoxin) 500 mcg 1X ONCE IV 03/17/20 12:45 03/17/20 12:48 DC 03/17/20 12:54 Sodium Chloride 500 ml @ 500 mls/hr 1X ONCE IV 03/17/20 12:45 03/17/20 13:44 DC 03/17/20 12:53 DIAGNOSTIC TESTING: Labs: Laboratory Tests 03/17/20 06:00 03/17/20 09:10 Laboratory Tests Test 03/17/20 06:00 03/17/20 09:10 Sodium Level 140 mmol/L (136-145) Potassium Level 3.8 mmol/L (3.5-5.1) Chloride Level 108 mmol/L (98-107) H Carbon Dioxide Level 25 mmol/L (21-32) Anion Gap 7 (6-14) Blood Urea Nitrogen 13 mg/dL (8-26) Creatinine 0.5 mg/dL (0.7-1.3) L Estimated GFR (Cockcroft-Gault) 163.9 Glucose Level 97 mg/dL (70-99) Calcium Level 6.9 mg/dL (8.5-10.1) L Phosphorus Level 3.8 mg/dL (2.6-4.7) White Blood Count 7.6 x10^3/uL (4.0-11.0) Red Blood Count 3.54 x10^6/uL (4.30-5.70) L Hemoglobin 9.4 g/dL (13.0-17.5) L Hematocrit 28.7 % (39.0-53.0) L Mean Corpuscular Volume 81 fL (79-100) Mean Corpuscular Hemoglobin 27 pg (25-35) Mean Corpuscular Hemoglobin Concent 33 g/dL (31-37) Red Cell Distribution Width 28.2 % (11.5-14.5) H Platelet Count 376 x10^3/uL (140-400) ASSESSMENT: 1. Atrial fibrillation 2. Diastolic HF PLAN: 1. Given digoxin and IVF. Supportive care for now. Will follow along Justicifation of Admission Dx: Justifications for Admission: Justification of Admission Dx: Yes JAMMIE HRADING MD Mar 17, 2020 22:25
[2020-03-18] VITALS (7 sets, daily range): BP systolic 115–132; BP diastolic 71–97
[2020-03-18] MEDS: METOPROLOL TART IMMED RELEASE 25 MG TABLET. PO SCH ×4 (00:11→21:03)
[2020-03-18] MEDS: METOPROLOL TARTRATE 5 MG/5 ML VIAL. IVP PRN (03:18)
[2020-03-18 05:53] LABS: CALCIUM 7.2 mg/dL (8.5-10.1); CREATININE 0.4 mg/dL (0.7-1.3); GFR 212.1; POTASSIUM 4.2 mmol/L (3.5-5.1)
[2020-03-18] MEDS ORDERED: DIGOXIN IV 500 MCG/2 ML AMPUL. IV ONE (07:15)
[2020-03-18] MEDS ORDERED: IV NORMAL SALINE 500ML BAG 500 ML IV ONE (07:15)
--- NOTE | 2020-03-18 07:30 | NUR ---
report given at bedside in icu. patients HR in 160's at this time. patient given digoxin x1. patient transferred to room 204. patients belongings checked and patients clothing, shoes, wallet, sunglasses, keys, and cellphone are all at the bedside. patient given 500ml NS bolus. patients blood pressure stable at this time. patient oriented to room. patient assessed at this time. will continue to monitor patient.
[2020-03-18] MEDS: IPRATROPIUM BROMIDE 0.5 MG/2.5 ML NEBU. NEB SCH ×4 (07:43→20:12)
[2020-03-18] MEDS: PANTOPRAZOLE IV PUSH 40 MG VIAL. IVP SCH (08:25)
[2020-03-18] MEDS: ENOXAPARIN 40 MG/0.4 ML SYRINGE. SQ SCH (08:25)
--- NOTE | 2020-03-18 10:20 | PDOC ---
PULMONARY PROGRESS NOTES Subjective Patient extubated 03/15 on ra, no sob, has occ cough, nsr today Vitals Vital Signs Date Time Temp Pulse Resp B/P (MAP) Pulse Ox O2 Delivery O2 Flow Rate FiO2 03/18/20 08:00 Room Air 03/18/20 07:45 97 03/18/20 07:40 97.7 145 132/97 (109) 97.7 Comments ros as mentioned as above other sys otherwise neg ROS: No Nausea, No Chest Pain, No Increase Cough General: Alert HEENT: Other (nc at perrl nose thrat clear neck no lad no thyromegaly) Lungs: Clear Cardiovascular: S1, S2, Other Abdomen: Soft, Other (Dressing in place, jace drain ) Neuro Exam: Alert Extremities: No Edema Skin: Warm Labs Laboratory Tests Test 03/17/20 06:00 03/17/20 09:10 03/18/20 05:30 Sodium Level 140 mmol/L (136-145) 140 mmol/L (136-145) Potassium Level 3.8 mmol/L (3.5-5.1) 4.2 mmol/L (3.5-5.1) Chloride Level 108 mmol/L (98-107) 107 mmol/L (98-107) Carbon Dioxide Level 25 mmol/L (21-32) 23 mmol/L (21-32) Anion Gap 7 (6-14) 10 (6-14) Blood Urea Nitrogen 13 mg/dL (8-26) 14 mg/dL (8-26) Creatinine 0.5 mg/dL (0.7-1.3) 0.4 mg/dL (0.7-1.3) Estimated GFR (Cockcroft-Gault) 163.9 212.1 Glucose Level 97 mg/dL (70-99) 106 mg/dL (70-99) Calcium Level 6.9 mg/dL (8.5-10.1) 7.2 mg/dL (8.5-10.1) Phosphorus Level 3.8 mg/dL (2.6-4.7) Magnesium Level 2.1 mg/dL (1.8-2.4) White Blood Count 7.6 x10^3/uL (4.0-11.0) Red Blood Count 3.54 x10^6/uL (4.30-5.70) Hemoglobin 9.4 g/dL (13.0-17.5) Hematocrit 28.7 % (39.0-53.0) Mean Corpuscular Volume 81 fL (79-100) Mean Corpuscular Hemoglobin 27 pg (25-35) Mean Corpuscular Hemoglobin Concent 33 g/dL (31-37) Red Cell Distribution Width 28.2 % (11.5-14.5) Platelet Count 376 x10^3/uL (140-400) Laboratory Tests Test 03/18/20 05:30 Sodium Level 140 mmol/L (136-145) Potassium Level 4.2 mmol/L (3.5-5.1) Chloride Level 107 mmol/L (98-107) Carbon Dioxide Level 23 mmol/L (21-32) Anion Gap 10 (6-14) Blood Urea Nitrogen 14 mg/dL (8-26) Creatinine 0.4 mg/dL (0.7-1.3) Estimated GFR (Cockcroft-Gault) 212.1 Glucose Level 106 mg/dL (70-99) Calcium Level 7.2 mg/dL (8.5-10.1) Medications Active Scripts Medications Dose Route/Sig Max Daily Dose Days Date Category Flomax (Tamsulosin Hcl) 0.4 Mg Cap.er.24h 1 Cap PO QHS 03/02/20 Reported Comments CXR reviewed IMPRESSION: 1. Stable left basilar opacities and small left pleural effusion. Impression . IMPRESSION: 1. Acute hypoxemic respiratory failure, expected status post surgical intervention for colonic mass. Status post extubation 03/15 on ra 2. Obstructing colonic cancer. 3. History of prostate cancer. 4. Severe protein malnutrition present upon admission. 5. Tobacco dependent. 6. Chronic obstructive pulmonary disease. 7. SARS-CoV-2 negative. 8. Cholelithiasis. 9. Hyponatremia. 10. Protein malnutrition, present upon admission. 11. Benign prostatic hypertrophy. 12. S/p open right colon resection, partial resection of duodenum, placement of duodenostomy tube, cholecystectomy, ghost ileostomy 13. Acute blood loss anemia 14. Respiratory alkalosis 15. Hypocalcemia-- correct calcium WNL 16. 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 - Lymphovascular tumor invasion present. - Metastatic carcinoma involving 1 of 14 mesocolic lymph nodes. - Tumor involvement of radial margin of posterior aspect of cecum and proximal ascending colon. - Proximal (distal ileum) and distal (ascending colon) margins of resection negative for tumor. - Hypertrophy of muscular wall of appendix with focal serosal lymphovascular tumor invasion of proximal appendix. - Omentum negative for tumor. - Serosal adhesions of colon and appendix, focal. . B. Gallbladder, open cholecystectomy: - Polypoid cholesterolosis. - Chronic cholecystitis. . C. Tissue designated "right upper quadrant": - Segments of tumor showing invasive colorectal adenocarcinoma with prominent mucinous component, moderately differentiated. . (JPM:[email or web address]; 03/07/2020) . Surgical Pathology Cancer Case Summary Protocol posting date: February 2017 COLON AND RECTUM: Resection, Including Transanal Disk Excision of Rectal Neoplasms Procedure ___ Right colectomy Tumor Site ___ Cecum ___ Ileocecal valve ___ Right (ascending) colon Tumor Size Greatest dimension: 12.5 cm Macroscopic Tumor Perforation ___ Present Histologic Type ___ Adenocarcinoma with prominent mucinous component and with focal poorly differentiated areas Histologic Grade ___ Other: Moderately to focally poorly differentiated Tumor Extension ___ Tumor invades through the muscularis propria into pericolorectal tissue Margins Proximal Margin ___ Uninvolved by invasive carcinoma + Distance of tumor from margin: 5.4 cm Distal Margin ___ Uninvolved by invasive carcinoma + Distance of tumor from margin: 11.2 cm ___ Involved by invasive carcinoma Radial or Mesenteric Margin ___ Involved by invasive carcinoma Lymphovascular Invasion ___ Present Perineural Invasion ___ Not identified + Type of Polyp in Which Invasive Carcinoma Arose + ___ Tubulovillous adenoma Tumor Deposits ___ Not identified Regional Lymph Nodes Number of Lymph Nodes Involved: 1 Number of Lymph Nodes Examined: 14 Pathologic Stage Classification (pTNM, AJCC 8th Edition) (Note M) Primary Tumor (pT) ___ pT4b: Tumor directly invades or adheres to adjacent organs or structures Regional Lymph Nodes (pN) ___ pN1: One to three regional lymph nodes are positive (tumor in lymph nodes measuring > or = 0.2 mm), or any number of tumor deposits are present and all identifiable lymph nodes are negative + Additional Pathologic Findings + ___ None identified (JPM:ady 03/08/2020) MBR 03/08/2020 0951 Local Plan . 02 titration cont atrovent no albuterol has episodes of tachycardia Avoid sedation IV metoprolol, dig per cardiology DVT GI prophylaxis Monitor H&H Follow nephrology recs Cont. ABX DVT GI prophylaxis pt/ot D/W RN and RT, pt LASHONDA FRAZIER MD Mar 18, 2020 10:20
--- NOTE | 2020-03-18 12:03 | PDOC ---
PROGRESS NOTES Chief Complaint Chief Complaint A/P: Acute respiratory failure, post-operative. S/p intubation. ? PNA Small bowel dilatation/obstruction suspicious for primary colon cancer 10.5cm mass with surrounding lymph nodes concerning for metastatic disease 10.5 cm colonic mass. Colonic mass abuts the right hepatic lobe inferior margin as well as the duodenum and anterior right kidney (extending through or deforming Gerota's fascia), suspicious for primary colon cancer. Prominent associated lymph nodes are seen, possibly metastatic Obstructing right colon cancer Dialated Appendix fatty liver dz Gallstones Microcytic Anemia Alkaline Phosphatemia Hyponatremia Mild Leukocytosis Tachycardia H/o prostate cancer in remission Severe protein calorie malnutrition LE edema - BNP of 350, no cardiac history and no symptoms of CHF. This is unlikely to be cardiac related at all. Likely likely lymphatic obstruction due to abdominal mass. Hyponatremia - likely due to poor PO intake, SERUM OSMOLALITY PENDING HYPOTENSION, POSSIBLE SEPSIS SVT - Arrhythmia; Brief period of SVT. Otherwise, has been maintaining SR/ST Acute blood loss anemia, s/p transfusion Hypocalcemia Acute encephalopathy Plan remains critically ill 38 min History of Present Illness History of Present Illness Mr Claudio is a 69 yo CM hx of prostate cancer s/p radiation, HTN, prediabetes now off meds who presents with vomiting fatigue diarrhea weight loss and decreased appetite for 1 month. He went to see his PCP because over the past week he had sudden onset lower extremity edema, patient had labs drawn as outpatient and called by PCP to go to the hospital for a blood transfusion and treatment for CHF. No history of CHF. On ROS he just notes his bones feel heavy. He also notes over the past 2 months sometimes he will choke on food and vomited up. His last bowel movement was 2 days ago and it was diarrhea. He has not been able to eat very well. He just feels tired. He stopped smoking over 25 years ago and he only did smoke cigars at that time. With regard to his prostate cancer he states that he had 43 radiation treatments and had a PET scan at the end of 2019 and was told he is in remission. He has never had a colonoscopy. in ED patient found to have hb of 9.8. na 130. noted to be tachy with HR 110. Patient lives with 101 year old mom. His mother has history of stage III colon cancer diagnosed at age 76. His brother has history of prostate cancer, father of lung cancer. 03/05: To OR for open right colon resection with partial duodenal resection, duodenostomy tube, cholecystectomy w/ cholangiogram and ghost ileostomy. Returned to ICU on ventilator. Pulm consulted 03/12: SVT - cardiology consulted, resolved without intervention 03/13. off pressors, vitals better, weaning sedation and weaning vent 03/14: Failed vent wean. He is obviously confused, but attempting to self extubate with mittens on . Labs improved. AC mode with rate of 12, 500cc/40% FiO2/ PEEP of 5. 03/15: Afebrile. Hb 8.7 hypotensive overnight. Vent on AC mode on wean ABG 7.36/40 4/133 on PEEP 5 FiO2 40%, extubated with me present not speaking but nodding somewhat appropriately to questions. Appears comfortable 03/16: On O2. Still on TPN, multiple BM yesterday and overnight. He is a bit confused. Legs much more swollen. Labs stable. 03/17: Diuresis of 4 L after Lasix and albumin yesterday. Afebrile overnight very tachycardic in the 160s overnight given metoprolol. BP low now, HR in 90s, labs actually appear stable. He is still very weak and a bit more clear headed, though confused on timeline. Less tachy overnight, required digoxin for rate control in addition to metoprolol due to low blood pressure. Afebrile. No CP or SOB. Still thinks he has been in here 5 weeks and still is convinced he had colon cancer surgery and then a cardiac surgery. 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 Says but then all of a sudden he woke up and I am right here and I am "Tripp Claudio". When asked if he wants to speak to a psychiatrist about this he asked for our little [id number] to remain between us Plan: Cont C[facility] for discharge planning when more stable Vitals Vitals Vital Signs Date Time Temp Pulse Resp B/P (MAP) Pulse Ox O2 Delivery O2 Flow Rate FiO2 03/18/20 11:21 97 Room Air 7/12/20 10:22 97.5 96 116/75 (89) 97.5 Physical Exam General: Alert, Cooperative, No acute distress Heart: Regular rate (ST) Lungs: Clear Abdomen: Soft, No tenderness, Other (AVI serous) Extremities: Other (2+ bilateral LE pitting edema, anasarca ) Skin: No significant lesion Labs LABS Laboratory Tests Test 03/18/20 05:30 Sodium Level 140 mmol/L (136-145) Potassium Level 4.2 mmol/L (3.5-5.1) Chloride Level 107 mmol/L (98-107) Carbon Dioxide Level 23 mmol/L (21-32) Anion Gap 10 (6-14) Blood Urea Nitrogen 14 mg/dL (8-26) Creatinine 0.4 mg/dL (0.7-1.3) Estimated GFR (Cockcroft-Gault) 212.1 Glucose Level 106 mg/dL (70-99) Calcium Level 7.2 mg/dL (8.5-10.1) Assessment and Plan Assessmemt and Plan Problems Medical Problems: (1) Anemia Status: Acute (2) Colonic mass Status: Acute (3) Fatigue Status: Acute (4) Hypocalcemia Status: Acute (5) Nausea & vomiting Status: Acute (6) SBO (small bowel obstruction) Status: Acute Comment Review of Relevant I have reviewed the following items radhames (where applicable) has been applied. Labs Laboratory Tests Test 03/17/20 06:00 03/17/20 09:10 03/18/20 05:30 Sodium Level 140 mmol/L (136-145) 140 mmol/L (136-145) Potassium Level 3.8 mmol/L (3.5-5.1) 4.2 mmol/L (3.5-5.1) Chloride Level 108 mmol/L (98-107) 107 mmol/L (98-107) Carbon Dioxide Level 25 mmol/L (21-32) 23 mmol/L (21-32) Anion Gap 7 (6-14) 10 (6-14) Blood Urea Nitrogen 13 mg/dL (8-26) 14 mg/dL (8-26) Creatinine 0.5 mg/dL (0.7-1.3) 0.4 mg/dL (0.7-1.3) Estimated GFR (Cockcroft-Gault) 163.9 212.1 Glucose Level 97 mg/dL (70-99) 106 mg/dL (70-99) Calcium Level 6.9 mg/dL (8.5-10.1) 7.2 mg/dL (8.5-10.1) Phosphorus Level 3.8 mg/dL (2.6-4.7) Magnesium Level 2.1 mg/dL (1.8-2.4) White Blood Count 7.6 x10^3/uL (4.0-11.0) Red Blood Count 3.54 x10^6/uL (4.30-5.70) Hemoglobin 9.4 g/dL (13.0-17.5) Hematocrit 28.7 % (39.0-53.0) Mean Corpuscular Volume 81 fL (79-100) Mean Corpuscular Hemoglobin 27 pg (25-35) Mean Corpuscular Hemoglobin Concent 33 g/dL (31-37) Red Cell Distribution Width 28.2 % (11.5-14.5) Platelet Count 376 x10^3/uL (140-400) Laboratory Tests Test 03/18/20 05:30 Sodium Level 140 mmol/L (136-145) Potassium Level 4.2 mmol/L (3.5-5.1) Chloride Level 107 mmol/L (98-107) Carbon Dioxide Level 23 mmol/L (21-32) Anion Gap 10 (6-14) Blood Urea Nitrogen 14 mg/dL (8-26) Creatinine 0.4 mg/dL (0.7-1.3) Estimated GFR (Cockcroft-Gault) 212.1 Glucose Level 106 mg/dL (70-99) Calcium Level 7.2 mg/dL (8.5-10.1) Microbiology 03/02/20 Urine Culture - Final, Complete Medications Current Medications Sodium Chloride 1,000 ml @ 1,000 mls/hr 1X ONCE IV Last administered on 03/02/20at 17:05; Start 03/02/20 at 16:45; Stop 03/02/20 at 17:44; Status DC Calcium Gluconate (Calcium Gluconate) 1,000 mg 1X ONCE IVP Last administered on 03/02/20at 18:21; Start 03/02/20 at 18:15; Stop 03/02/20 at 18:18; Status DC Iohexol (Omnipaque 300 Mg/ml) 75 ml 1X ONCE IV Last administered on 03/02/20at 18:34; Start 03/02/20 at 18:30; Stop 03/02/20 at 18:31; Status DC Pantoprazole Sodium (PROTONIX VIAL for IV PUSH) 40 mg 1X ONCE IVP Last administered on 03/02/20at 18:41; Start 03/02/20 at 18:45; Stop 03/02/20 at 18:46; Status DC Sodium Chloride 1,000 ml @ 100 mls/hr 1X ONCE IV Last administered on 03/02/20at 19:04; Start 03/02/20 at 18:45; Stop 03/03/20 at 04:44; Status DC Enoxaparin Sodium (Lovenox Per Pharmacy Prophylaxis Dosing) 1 each PRN DAILY PRN MC SEE COMMENTS; Start 03/02/20 at 20:30; Status Cancel Enoxaparin Sodium (Lovenox 40mg Syringe) 40 mg Q24H SQ Last administered on 03/02/20at 23:48; Start 03/02/20 at 21:00; Stop 03/03/20 at 08:48; Status DC Tamsulosin HCl (Flomax) 0.4 mg HS PO Last administered on 03/17/20at 21:21; Start 03/02/20 at 23:45 Sodium Chloride 1,000 ml @ 100 mls/hr Q10H IV Last administered on 03/03/20at 11:07; Start 03/03/20 at 10:00; Stop 03/03/20 at 14:58; Status DC Ondansetron HCl (Zofran) 4 mg PRN Q4HRS PRN IV NAUSEA/VOMITING Last administered on 03/04/20at 22:31; Start 03/03/20 at 09:45; Stop 03/05/20 at 16:15; Status DC Acetaminophen (Tylenol Supp) 650 mg PRN Q4HRS PRN RI TEMP OVER 100.4F OR MILD PAIN; Start 03/03/20 at 09:45 Polyethylene Glycol (miraLAX PACKET) 17 gm DAILY PO Last administered on 03/04/20at 09:21; Start 03/03/20 at 10:00; Stop 03/06/20 at 10:25; Status DC Bisacodyl (Dulcolax Supp) 10 mg PRN DAILY PRN RI CONSTIPATION; Start 03/03/20 at 09:45; Stop 03/06/20 at 10:25; Status DC Bisacodyl (Dulcolax Tab) 10 mg PRN DAILY PRN PO CONSTIPATION Last administered on 03/03/20at 13:47; Start 03/03/20 at 09:45; Stop 03/06/20 at 10:25; Status DC Psyllium Hydrophilic Mucilloid (Metamucil Fiber Packet) 1 pkt QHS PO Last administered on 03/04/20at 21:03; Start 03/03/20 at 21:00; Stop 03/06/20 at 10:25; Status DC Polyethylene Glycol (miraLAX PACKET) 17 gm QHS PO Last administered on 03/04/20at 21:03; Start 03/03/20 at 21:00; Stop 03/06/20 at 10:25; Status DC Docusate Sodium (Colace) 100 mg DAILY PO Last administered on 03/04/20at 09:21; Start 03/03/20 at 12:00; Stop 03/06/20 at 10:25; Status DC Amino Acids/ Glycerin/ Electrolytes 1,000 ml @ 80 mls/hr [id number] IV Last administered on 03/07/20at 02:41; Start 03/03/20 at 15:00; Stop 03/07/20 at 13:22; Status DC Furosemide (Lasix) 40 mg 1X ONCE IVP Last administered on 03/03/20at 16:48; Start 03/03/20 at 15:00; Stop 03/03/20 at 15:01; Status DC Iohexol (Omnipaque 300 Mg/ml) 75 ml 1X ONCE IV Last administered on 03/03/20at 16:33; Start 03/03/20 at 16:15; Stop 03/03/20 at 16:16; Status DC Info (CONTRAST GIVEN -- Rx MONITORING) 1 each PRN DAILY PRN MC SEE COMMENTS; Start 03/03/20 at 16:15; Stop 03/05/20 at 16:15; Status DC Bisacodyl (Dulcolax Supp) 10 mg 1X ONCE RI Last administered on 03/04/20at 12:18; Start 03/04/20 at 10:00; Stop 03/04/20 at 10:05; Status DC Cefoxitin Sodium (Mefoxin) 2 gm 1X PREOP IVP Last administered on 03/05/20at 13:09; Start 03/05/20 at 10:00; Stop 03/08/20 at 11:05; Status DC Lidocaine (Lidoderm) 1 patch DAILY TD ; Start 03/04/20 at 16:30; Status Cancel Miscellaneous (Lidoderm Patch Removal) 1 ea QHS MC ; Start 03/04/20 at 21:00; Status Cancel Ondansetron HCl (Zofran) 4 mg PRN Q6HRS PRN IVP NAUSEA/VOMITING; Start 03/05/20 at 07:15; Stop 03/05/20 at 20:00; Status DC Fentanyl Citrate (Fentanyl 2ml Vial) 25 mcg PRN Q5MIN PRN IVP MILD PAIN 1-3; Start 03/05/20 at 07:15; Stop 03/05/20 at 20:00; Status DC Fentanyl Citrate (Fentanyl 2ml Vial) 50 mcg PRN Q5MIN PRN IVP MODERATE TO SEVERE PAIN; Start 03/05/20 at 07:15; Stop 03/05/20 at 20:00; Status DC Morphine Sulfate (Morphine Sulfate) 1 mg PRN Q10MIN PRN IVP SEVERE PAIN 7-10; Start 03/05/20 at 07:15; Stop 03/05/20 at 20:00; Status DC Ringer's Solution 1,000 ml @ 30 mls/hr Q24H IV Last administered on 03/05/20at 09:59; Start 03/05/20 at 07:05; Stop 03/05/20 at 19:04; Status DC Lidocaine HCl (Xylocaine-Mpf 1% 2ml Vial) 2 ml 1X PRN PRN ID IV START; Start 03/05/20 at 07:15; Stop 03/05/20 at 20:00; Status DC Hydromorphone HCl (Dilaudid) 0.5 mg PRN Q10MIN PRN IVP SEV PAIN, Second choice; Start 03/05/20 at 07:15; Stop 03/05/20 at 20:00; Status DC Prochlorperazine Edisylate (Compazine) 5 mg PACU PRN PRN IVP NAUSEA, MRX1; Start 03/05/20 at 07:15; Stop 03/06/20 at 07:14; Status DC Pantoprazole Sodium (PROTONIX VIAL for IV PUSH) 40 mg DAILYAC IVP Last administered on 03/18/20at 08:25; Start 03/05/20 at 10:30 Propofol (Diprivan) 200 mg STK-MED ONCE IV ; Start 03/05/20 at 10:23; Stop 03/05/20 at 10:23; Status DC Lidocaine HCl (Lidocaine Pf 2% Vial) 5 ml STK-MED ONCE .ROUTE ; Start 03/05/20 at 10:23; Stop 03/05/20 at 10:23; Status DC Ondansetron HCl (Zofran) 4 mg STK-MED ONCE .ROUTE ; Start 03/05/20 at 10:23; Stop 03/05/20 at 10:23; Status DC Dexamethasone Sodium Phosphate (Decadron) 4 mg STK-MED ONCE .ROUTE ; Start 03/05/20 at 10:23; Stop 03/05/20 at 10:23; Status DC Succinylcholine Chloride (Anectine) 200 mg STK-MED ONCE .ROUTE ; Start 03/05/20 at 10:23; Stop 03/05/20 at 10:23; Status DC Rocuronium Bard (Zemuron) 50 mg STK-MED ONCE .ROUTE ; Start 03/05/20 at 10:24; Stop 03/05/20 at 10:24; Status DC Fentanyl Citrate (Fentanyl 2ml Vial) 100 mcg STK-MED ONCE .ROUTE ; Start 02/06 05/27 at 10:24; Stop 03/05/20 at 10:24; Status DC Iohexol (Omnipaque 300 Mg/ml) 50 ml STK-MED ONCE .ROUTE Last administered on 03/05/20at 11:43; Start 03/05/20 at 10:41; Stop 03/05/20 at 10:41; Status DC Bupivacaine HCl/ Epinephrine Bitart (Sensorcain-Epi 0.5%-1:[id number] Mpf) 30 ml STK-MED ONCE .ROUTE ; Start 03/05/20 at 10:42; Stop 03/05/20 at 10:42; Status DC Phenylephrine HCl (PHENYLEPHRINE in 0.9% NACL PF) 1 mg STK-MED ONCE IV ; Start 03/05/20 at 12:13; Stop 03/05/20 at 12:14; Status DC Ephedrine Sulfate (ePHEDrine PF IN SALINE SYRINGE) 50 mg STK-MED ONCE IV ; Start 03/05/20 at 12:13; Stop 03/05/20 at 12:14; Status DC Phenylephrine HCl (Devin-Synephrine Inj) 10 mg STK-MED ONCE .ROUTE ; Start 03/05/20 at 12:15; Stop 03/05/20 at 12:15; Status DC Rocuronium Bard (Zemuron) 50 mg STK-MED ONCE .ROUTE ; Start 03/05/20 at 12:27; Stop 03/05/20 at 12:27; Status DC Cefoxitin Sodium (Mefoxin) 1 gm STK-MED ONCE IVP ; Start 03/05/20 at 12:57; Stop 03/05/20 at 12:57; Status DC Albumin Human 500 ml @ As Directed STK-MED ONCE IV ; Start 03/05/20 at 13:08; Stop 03/05/20 at 13:08; Status DC Albumin Human 500 ml @ As Directed STK-MED ONCE IV ; Start 03/05/20 at 13:13; Stop 03/05/20 at 13:14; Status DC Phenylephrine HCl (Devin-Synephrine Inj) 10 mg STK-MED ONCE .ROUTE ; Start 03/05/20 at 13:35; Stop 03/05/20 at 13:35; Status DC Phenylephrine HCl (Devin-Synephrine Inj) 10 mg STK-MED ONCE .ROUTE ; Start 03/05/20 at 13:48; Stop 03/05/20 at 13:49; Status DC Sevoflurane (Ultane) 90 ml STK-MED ONCE IH ; Start 03/05/20 at 14:30; Stop 03/05/20 at 14:30; Status DC Phenylephrine HCl (Devin-Synephrine Inj) 10 mg STK-MED ONCE .ROUTE ; Start 03/05/20 at 14:35; Stop 03/05/20 at 14:36; Status DC Midazolam HCl 100 mg/Sodium Chloride 100 ml @ 1 mls/hr CONT PRN IV SEE I/O RECORD Last administered on 03/13/20at 19:50; Start 03/05/20 at 15:15; Stop 03/17/20 at 08:30; Status DC Fentanyl Citrate 30 ml @ 2.5 mls/hr CONT PRN PRN IV PER PROTOCOL Last administered on 03/15/20at 02:05; Start 03/05/20 at 15:15; Stop 03/17/20 at 08:30; Status DC Naloxone HCl (Narcan) 0.4 mg PRN Q2MIN PRN IV SEE INSTRUCTIONS; Start 03/05/20 at 15:15; Stop 03/06/20 at 09:45; Status DC Sodium Chloride 1,000 ml @ 25 mls/hr Q24H IV ; Start 03/05/20 at 15:13; Stop 03/06/20 at 14:24; Status DC Norepinephrine Bitartrate 8 mg/ Dextrose 258 ml @ 15.287 mls/ hr CONT PRN IV PER PROTOCOL Last administered on 03/11/20at 18:15; Start 03/05/20 at 15:30; Stop 03/18/20 at 07:52; Status DC Enoxaparin Sodium (Lovenox 40mg Syringe) 40 mg Q24H SQ Last administered on 03/18/20at 08:25; Start 03/06/20 at 08:00 Sodium Chloride (Normal Saline Flush) 3 ml QSHIFT PRN IV AFTER MEDS AND BLOOD DRAWS; Start 03/05/20 at 16:15 Ringer's Solution 1,000 ml @ 100 mls/hr Q10H IV Last administered on 03/08/20at 11:19; Start 03/05/20 at 16:09; Stop 03/08/20 at 18:54; Status DC Naloxone HCl (Narcan) 0.4 mg PRN Q2MIN PRN IV SEE INSTRUCTIONS; Start 03/05/20 at 16:15 Sodium Chloride 1,000 ml @ 25 mls/hr Q24H IV ; Start 03/05/20 at 16:09; Stop 03/06/20 at 14:24; Status DC Morphine Sulfate 30 ml @ 0 mls/hr CONT PRN PRN IV PER PROTOCOL; Start 03/05/20 at 16:15; Stop 03/06/20 at 09:48; Status DC Ondansetron HCl (Zofran) 4 mg PRN Q6HRS PRN IVP NAUESA, 1ST CHOICE; Start 03/05/20 at 16:15 Piperacillin Sod/ Tazobactam Sod 3.375 gm/Sodium Chloride 50 ml @ 100 mls/hr Q6HRS IV Last administered on 03/17/20at 05:58; Start 03/05/20 at 17:00; Stop 03/17/20 at 08:30; Status DC Ringer's Solution 1,000 ml @ 999 mls/hr 1X ONCE IV Last administered on 03/05/20at 20:59; Start 03/05/20 at 20:00; Stop 03/05/20 at 21:00; Status DC Vasopressin 20 unit/Dextrose 101 ml @ 12 mls/hr CONT PRN IV SEE I/O RECORD Last administered on 03/11/20at 06:25; Start 03/05/20 at 20:00; Stop 03/17/20 at 08:30; Status DC Ringer's Solution 1,000 ml @ 999 mls/hr 1X ONCE IV Last administered on 03/06/20at 01:07; Start 03/06/20 at 01:00; Stop 03/06/20 at 02:00; Status DC Ringer's Solution 1,000 ml @ 999 mls/hr 1X ONCE IV Last administered on 03/06/20at 05:18; Start 03/06/20 at 05:00; Stop 03/06/20 at 06:00; Status DC Ringer's Solution 1,000 ml @ 999 mls/hr 1X ONCE IV Last administered on 03/06/20at 09:54; Start 03/06/20 at 09:45; Stop 03/06/20 at 10:45; Status DC Ringer's Solution 1,000 ml @ 999 mls/hr 1X ONCE IV Last administered on 03/06/20at 13:40; Start 03/06/20 at 13:45; Stop 03/06/20 at 14:45; Status DC Ringer's Solution 1,000 ml @ 999 mls/hr 1X ONCE IV Last administered on 03/06/20at 18:43; Start 03/06/20 at 18:15; Stop 03/06/20 at 19:15; Status DC Sodium Chloride 200 ml @ 50 mls/hr 1X ONCE IV Last administered on 03/07/20at 1 3:49; Start 03/07/20 at 13:30; Stop 03/07/20 at 17:29; Status DC Potassium Phosphate 13.6 mmol/Sodium Chloride 254.5333 ml @ 62.5 mls/hr Q4H IV Last administered on 03/08/20at 16:52; Start 03/08/20 at 08:30; Stop 03/08/20 at 20:29; Status DC Magnesium Sulfate 50 ml @ 25 mls/hr 1X ONCE IV Last administered on 03/08/20at 08:00; Start 03/08/20 at 08:00; Stop 03/08/20 at 09:59; Status DC Sodium Chloride 300 ml @ 50 mls/hr 1X ONCE IV Last administered on 03/08/20at 08:00; Start 03/08/20 at 08:00; Stop 03/08/20 at 13:59; Status DC Info (Tpn Per Pharmacy) 1 each PRN DAILY PRN MC SEE COMMENTS Last administered on 03/17/20at 10:22; Start 03/08/20 at 11:00 Sodium Chloride 100 meq/Potassium Chloride 50 meq/ Potassium Phosphate 18 mmol/ Magnesium Sulfate 15 meq/Calcium Gluconate 10 meq/ Multivitamins 10 ml/Chromium/ Copper/Manganese/ Seleni/Zn 1 ml/ Total Parenteral Nutrition/Amino Acids/Dextrose/ Fat Emulsion Intravenous 1,512 ml @ 63 mls/hr TPN CONT IV ; Start 03/08/20 at 22:00; Stop 03/08/20 at 11:31; Status DC Sodium Chloride 100 meq/Potassium Chloride 50 meq/ Potassium Phosphate 18 mmol/ Magnesium Sulfate 15 meq/Calcium Gluconate 10 meq/ Multivitamins 10 ml/Chromium/ Copper/Manganese/ Seleni/Zn 1 ml/ Total Parenteral Nutrition/Amino Acids/Dextrose/ Fat Emulsion Intravenous 1,920 ml @ 80 mls/hr TPN CONT IV Last administered on 03/08/20at 23:04; Start 03/08/20 at 22:00; Stop 03/09/20 at 21:59; Status DC Potassium Chloride/Water 100 ml @ 100 mls/hr 1X ONCE IV Last administered on 03/08/20at 15:51; Start 03/08/20 at 16:00; Stop 03/08/20 at 16:59; Status DC Sodium Chloride 100 meq/Potassium Chloride 50 meq/ Potassium Phosphate 18 mmol/ Magnesium Sulfate 15 meq/Calcium Gluconate 10 meq/ Multivitamins 10 ml/Chromium/ Copper/Manganese/ Seleni/Zn 1 ml/ Total Parenteral Nutrition/Amino Acids/Dextrose/ Fat Emulsion Intravenous 1,920 ml @ 80 mls/hr TPN CONT IV Last administered on 03/09/20at 22:00; Start 03/09/20 at 22:00; Stop 03/10/20 at 21:59; Status DC Sodium Phosphate 15 mmol/Sodium Chloride 255 ml @ 63.75 mls/ hr 1X ONCE IV [place] st administered on 03/10/20at 08:45; Start 03/10/20 at 09:00; Stop 03/10/20 at 12:59; Status DC Sodium Chloride 100 meq/Sodium Phosphate 15 mmol/ Potassium Chloride 50 meq/ Potassium Phosphate 18 mmol/ Magnesium Sulfate 15 meq/Calcium Gluconate 10 meq/ Multivitamins 10 ml/Chromium/ Copper/Manganese/ Seleni/Zn 1 ml/ Total Parenteral Nutrition/Amino Acids/Dextrose/ Fat Emulsion Intravenous 1,920 ml @ 80 mls/hr TPN CONT IV Last administered on 03/10/20at 21:41; Start 03/10/20 at 22:00; Stop 03/11/20 at 21:59; Status DC Sodium Phosphate 15 mmol/Sodium Chloride 255 ml @ 63.75 mls/ hr 1X ONCE IV Last administered on 03/11/20at 12:00; Start 03/11/20 at 10:00; Stop 03/11/20 at 13:59; Status DC Sodium Chloride 100 meq/Sodium Phosphate 15 mmol/ Potassium Chloride 50 meq/ Potassium Phosphate 18 mmol/ Magnesium Sulfate 15 meq/Calcium Gluconate 10 meq/ Multivitamins 10 ml/Chromium/ Copper/Manganese/ Seleni/Zn 1 ml/ Total Parenteral Nutrition/Amino Acids/Dextrose/ Fat Emulsion Intravenous 1,920 ml @ 80 mls/hr TPN CONT IV Last administered on 03/11/20at 21:52; Start 03/11/20 at 22:00; Stop 03/12/20 at 21:59; Status DC Dexmedetomidine HCl 400 mcg/ Sodium Chloride 100 ml @ 0 mls/hr CONT PRN IV SEE COMMENTS Last administered on 03/15/20at 02:04; Start 03/11/20 at 10:00; Stop 03/18/20 at 07:50; Status DC Sodium Chloride 500 ml @ 500 mls/hr 1X PRN PRN IV SEE COMMENTS; Start 03/11/20 at 10:00 Atropine Sulfate (ATROPINE 0.5mg SYRINGE) 0.5 mg PRN Q5MIN PRN IV SEE COMMENTS; Start 03/11/20 at 10:00 Calcium Gluconate (Calcium Gluconate) 1,000 mg 1X ONCE IVP Last administered on 03/11/20at 12:35; Start 03/11/20 at 12:30; Stop 03/11/20 at 12:31; Status DC Sodium Chloride 80 meq/Sodium Phosphate 15 mmol/ Potassium Chloride 50 meq/ Potassium Phosphate 15 mmol/ Magnesium Sulfate 15 meq/Calcium Gluconate 10 meq/ Multivitamins 10 ml/Chromium/ Copper/Manganese/ Seleni/Zn 1 ml/ Total Parenteral Nutrition/Amino Acids/Dextrose/ Fat Emulsion Intravenous 1,920 ml @ 80 mls/hr TPN CONT IV Last administered on 03/12/20at 22:06; Start 03/12/20 at 22:00; Stop 03/13/20 at 21:59; Status DC Metoprolol Tartrate (Lopressor Vial) 2.5 mg Q6HRS IVP Last administered on 03/14/20at 08:50; Start 03/12/20 at 12:00; Stop 03/14/20 at 11:24; Status DC Albuterol Sulfate (Ventolin Neb Soln) 2.5 mg 1X ONCE NEB Last administered on 03/13/20at 00:00; Start 03/13/20 at 00:00; Stop 03/13/20 at 00:01; Status DC Sodium Chloride 80 meq/Sodium Phosphate 15 mmol/ Potassium Chloride 50 meq/ Potassium Phosphate 15 mmol/ Magnesium Sulfate 15 meq/Calcium Gluconate 10 meq/ Multivitamins 10 ml/Chromium/ Copper/Manganese/ Seleni/Zn 1 ml/ Total Parenteral Nutrition/Amino Acids/Dextrose/ Fat Emulsion Intravenous 1,920 ml @ 80 mls/hr TPN CONT IV Last administered on 03/13/20at 22:01; Start 03/13/20 at 22:00; Stop 03/14/20 at 21:59; Status DC Albuterol/ Ipratropium (Duoneb) 3 ml RTQID NEB Last administered on 03/17/20at 07:58; Start 03/13/20 at 12:00; Stop 03/17/20 at 11:51; Status DC Sodium Chloride 80 meq/Sodium Phosphate 15 mmol/ Potassium Chloride 50 meq/ Potassium Phosphate 15 mmol/ Magnesium Sulfate 15 meq/Calcium Gluconate 10 meq/ Multivitamins 10 ml/Chromium/ Copper/Manganese/ Seleni/Zn 1 ml/ Total Parenteral Nutrition/Amino Acids/Dextrose/ Fat Emulsion Intravenous 1,920 ml @ 80 mls/hr TPN CONT IV Last administered on 03/14/20at 21:54; Start 03/14/20 at 22:00; Stop 03/15/20 at 21:59; Status DC Metoprolol Tartrate (Lopressor Vial) 5 mg Q6HRS IVP Last administered on 03/14/20 at 18:25; Start 03/14/20 at 12:00; Stop 03/15/20 at 14:17; Status DC Hydralazine HCl (Apresoline Inj) 10 mg PRN Q4HRS PRN IVP ELEVATED BP, SEE COMMENTS; Start 03/14/20 at 11:30 Sodium Chloride 80 meq/Sodium Phosphate 15 mmol/ Potassium Chloride 50 meq/ Pota ssium Phosphate 15 mmol/ Magnesium Sulfate 15 meq/Calcium Gluconate 10 meq/ Multivitamins 10 ml/Chromium/ Copper/Manganese/ Seleni/Zn 1 ml/ Total Parenteral Nutrition/Amino Acids/Dextrose/ Fat Emulsion Intravenous 1,920 ml @ 80 mls/hr TPN CONT IV Last administered on 03/15/20at 22:10; Start 03/15/20 at 22:00; Stop 03/16/20 at 21:59; Status DC Metoprolol Tartrate (Lopressor Vial) 2.5 mg Q6HRS IVP Last administered on 03/16/20at 17:18; Start 03/15/20 at 18:00; Stop 03/16/20 at 17:45; Status DC Albumin Human 500 ml @ 125 mls/hr 1X ONCE IV Last administered on 03/16/20at 10:14; Start 03/16/20 at 09:15; Stop 03/16/20 at 13:14; Status DC Furosemide (Lasix) 40 mg 1X ONCE IVP Last administered on 03/16/20at 12:17; Start 03/16/20 at 09:15; Stop 03/16/20 at 09:16; Status DC Sodium Chloride 80 meq/Sodium Phosphate 15 mmol/ Potassium Chloride 50 meq/ Potassium Phosphate 15 mmol/ Magnesium Sulfate 15 meq/Calcium Gluconate 10 meq/ Multivitamins 10 ml/Chromium/ Copper/Manganese/ Seleni/Zn 1 ml/ Total Parenteral Nutrition/Amino Acids/Dextrose/ Fat Emulsion Intravenous 1,920 ml @ 80 mls/hr TPN CONT IV Last administered on 03/16/20at 22:11; Start 03/16/20 at 22:00; Stop 03/17/20 at 21:59; Status DC Metoprolol Tartrate (Lopressor) 12.5 mg Q6HRS PO Last administered on 03/18/20at 05:27; Start 03/16/20 at 18:00 Metoprolol Tartrate (Lopressor) 12.5 mg Q6HRS PO ; Start 03/16/20 at 18:00; Status UNV Metoprolol Tartrate (Lopressor Vial) 5 mg PRN Q6HRS PRN IVP HYPERTENSION Last administered on 03/18/20at 03:18; Start 03/17/20 at 02:00 Albumin Human 500 ml @ 125 mls/hr 1X ONCE IV Last administered on 03/17/20at 08:59; Start 03/17/20 at 08:30; Stop 03/17/20 at 12:29; Status DC Vitamin A/Vitamin D (Vitamin A & D Ointment) 1 yury PRN Q1HR PRN TP SKIN PROTECTION; Start 03/17/20 at 10:15 Sodium Chloride 80 meq/Sodium Phosphate 15 mmol/ Potassium Chloride 50 meq/ Potassium Phosphate 15 mmol/ Magnesium Sulfate 15 meq/Calcium Gluconate 10 meq/ Multivitamins 10 ml/Chromium/ Copper/Manganese/ Seleni/Zn 1 ml/ Total Parenteral Nutrition/Amino Acids/Dextrose/ Fat Emulsion Intravenous 1,920 ml @ 80 mls/hr TPN CONT IV Last administered on 03/17/20at 22:01; Start 03/17/20 at 22:00; Stop 03/18/20 at 21:59 Ipratropium Bard (Atrovent) 0.5 mg RTQID NEB Last administered on 03/18/20at 11:19; Start 03/17/20 at 12:00 Digoxin (Lanoxin) 500 mcg 1X ONCE IV Last administered on 03/17/20at 12:54; Start 03/17/20 at 12:45; Stop 03/17/20 at 12:48; Status DC Sodium Chloride 500 ml @ 500 mls/hr 1X ONCE IV Last administered on 03/17/20at 12:53; Start 03/17/20 at 12:45; Stop 03/17/20 at 13:44; Status DC Digoxin (Lanoxin) 500 mcg 1X ONCE IV Last administered on 03/18/20at 07:11; Start 03/18/20 at 07:15; Stop 03/18/20 at 07:16; Status DC Sodium Chloride 500 ml @ 500 mls/hr 1X ONCE IV Last administered on 03/18/20at 08:24; Start 03/18/20 at 07:15; Stop 03/18/20 at 08:14; Status DC Active Scripts Active Reported Flomax (Tamsulosin Hcl) 0.4 Mg Cap.er.24h 1 Cap PO QHS Vitals/I & O Vital Sign - Last 24 Hours 03/17/20 03/17/20 03/17/20 03/17/20 12:00 12:30 12:31 12:53 Temp 97.8 97.8 Pulse 160 160 155 B/P (MAP) 122/105 (111) 103/82 (89) 101/80 Pulse Ox 100 98 O2 Delivery Room Air Room Air 03/17/20 03/17/20 03/17/20 03/17/20 12:54 13:00 15:43 16:00 Temp 97.8 97.8 Pulse 165 156 94 B/P (MAP) 101/80 105/85 (92) 123/88 (100) Pulse Ox 99 98 99 O2 Delivery Room Air Room Air Room Air 03/17/20 03/17/20 03/17/20 03/17/20 18:09 19:59 20:00 20:00 Temp 98.6 98.6 Pulse 98 94 B/P (MAP) 120/78 128/75 (92) Pulse Ox 100 99 O2 Delivery Room Air Room Air Room Air 03/17/20 03/18/20 03/18/20 03/18/20 22:01 00:00 00:11 03:18 Pulse 160 100 108 171 B/P (MAP) 129/83 116/80 (92) 114/71 129/96 Pulse Ox 99 O2 Delivery Room Air 03/18/20 03/18/20 03/18/20 03/18/20 04:00 05:27 07:11 07:40 Temp 98.4 97.7 98.4 97.7 Pulse 90 98 145 145 B/P (MAP) 122/85 (97) 100/84 110/87 132/97 (109) Pulse Ox 99 98 O2 Delivery Room Air Room Air 03/18/20 03/18/20 03/18/20 03/18/20 07:45 08:00 10:22 11:21 Temp 97.5 97.5 Pulse 96 B/P (MAP) 116/75 (89) Pulse Ox 97 98 97 O2 Delivery Room Air Room Air Room Air Room Air Intake and Output 03/17/20 03/17/20 03/18/20 15:00 23:00 07:00 Intake Total 815 ml 1525 ml 999 ml Output Total 920 ml 610 ml 715 ml Balance -105 ml 915 ml 284 ml Nutrition Consultation Dietary Evaluation: Recommendations by RD: Dietary education by RD, Increase Calorie Intake, PPN/TPN Comments: Continue w/TPN for nutrition at this time, recommend adjust macronutrients to following AA, 250g dextrose, 20g lipids Expected Outcomes/Goals: New goal 03/08: TPN to meet >65% est needs while intubated - met, new goal established New goal 03/15: TPN infusion to meet >75% est needs Malnutrition Findings: Food and Nutrition Intake (Mod: <75% est energy req 7days Weight Status: Appropriate Justicifation of Admission Dx: Justifications for Admission: Justification of Admission Dx: Yes RAIN CRYSTAL MD Mar 18, 2020 12:03
--- NOTE | 2020-03-18 13:30 | PDOC ---
SURGICAL PROGRESS NOTE Subjective Pt doing well, howard some PO Vital Signs Vital Signs Date Time Temp Pulse Resp B/P (MAP) Pulse Ox O2 Delivery O2 Flow Rate FiO2 03/18/20 12:40 104 118/91 03/18/20 11:21 97 Room Air 03/18/20 10:22 97.5 97.5 I&O Intake and Output 03/18/20 07:00 Intake Total 3339 ml Output Total 2245 ml Balance 1094 ml Intake Oral 360 ml IV Total 2979 ml Output Urine Total 1595 ml Drainage Total 650 ml General: Alert, Oriented X3, Cooperative, No acute distress Abdomen: Soft, No tenderness Labs Laboratory Tests Test 03/17/20 06:00 03/17/20 09:10 03/18/20 05:30 Sodium Level 140 mmol/L (136-145) 140 mmol/L (136-145) Potassium Level 3.8 mmol/L (3.5-5.1) 4.2 mmol/L (3.5-5.1) Chloride Level 108 mmol/L (98-107) 107 mmol/L (98-107) Carbon Dioxide Level 25 mmol/L (21-32) 23 mmol/L (21-32) Anion Gap 7 (6-14) 10 (6-14) Blood Urea Nitrogen 13 mg/dL (8-26) 14 mg/dL (8-26) Creatinine 0.5 mg/dL (0.7-1.3) 0.4 mg/dL (0.7-1.3) Estimated GFR (Cockcroft-Gault) 163.9 212.1 Glucose Level 97 mg/dL (70-99) 106 mg/dL (70-99) Calcium Level 6.9 mg/dL (8.5-10.1) 7.2 mg/dL (8.5-10.1) Phosphorus Level 3.8 mg/dL (2.6-4.7) Magnesium Level 2.1 mg/dL (1.8-2.4) White Blood Count 7.6 x10^3/uL (4.0-11.0) Red Blood Count 3.54 x10^6/uL (4.30-5.70) Hemoglobin 9.4 g/dL (13.0-17.5) Hematocrit 28.7 % (39.0-53.0) Mean Corpuscular Volume 81 fL (79-100) Mean Corpuscular Hemoglobin 27 pg (25-35) Mean Corpuscular Hemoglobin Concent 33 g/dL (31-37) Red Cell Distribution Width 28.2 % (11.5-14.5) Platelet Count 376 x10^3/uL (140-400) Laboratory Tests Test 03/18/20 05:30 Sodium Level 140 mmol/L (136-145) Potassium Level 4.2 mmol/L (3.5-5.1) Chloride Level 107 mmol/L (98-107) Carbon Dioxide Level 23 mmol/L (21-32) Anion Gap 10 (6-14) Blood Urea Nitrogen 14 mg/dL (8-26) Creatinine 0.4 mg/dL (0.7-1.3) Estimated GFR (Cockcroft-Gault) 212.1 Glucose Level 106 mg/dL (70-99) Calcium Level 7.2 mg/dL (8.5-10.1) Problem List Problems Medical Problems: (1) Anemia Status: Acute (2) Colonic mass Status: Acute (3) Fatigue Status: Acute (4) Hypocalcemia Status: Acute (5) Nausea & vomiting Status: Acute (6) SBO (small bowel obstruction) Status: Acute Assessment/Plan s/p right colon cont supportive care ADAT Justicifation of Admission Dx: Justifications for Admission: Justification of Admission Dx: Yes MEGAN WILLIAMSON MD Mar 18, 2020 13:30
[2020-03-18] MEDS: TPN PER PHARMACY MC PRN (14:09)
--- NOTE | 2020-03-18 14:11 | NUR ---
Pharmacy TPN Dosing Note S: FABIANO HELLER is a 69 year old M Currently receiving Central Continuous TPN started 03/08/20 B:Pertinent PMH: NPO/SBO Height: 6 feet, 3 inches Weight: 84.6 kg Current diet: NPO - having swallow study done today LABS: Sodium: 140 Potassium: 4.2 Chloride: 107 Calcium: 7.2 Corrected Calcium: 9.76 Magnesium: 2.1 CO2: 23 SCr: 0.5 Glucose: 106 Albumin: 0.8 AST: 16 ALT: 15 TPN FORMULA: TPN TYPE: Central Continuous AMINO ACIDS: 80 gm DEXTROSE: 250 gm LIPIDS: 20 gm SODIUM CHLORIDE: 80 mEq SODIUM ACETATE: - mEq SODIUM PHOSPHATE: 15 mmol POTASSIUM CHLORIDE: 50 mEq POTASSIUM ACETATE: - mEq POTASSIUM PHOSPHATE: 15 mmol MAGNESIUM: 15 mEq CALCIUM: 10 mEq INSULIN: - units MULTIPLE VITAMIN: 10 ml TRACE ELEMENTS: 1 ml ml(s) TPN PLAN: no changes in tpn R: CONTINUE TPN AT 80 ML/HR Will monitor electrolytes, glucose, and tolerance to TPN. NOMI LANGLEY [facility], 03/18/20 [id number]
--- NOTE | 2020-03-18 15:00 | NUR ---
Assumed patient care. Report from JEAN MARIE Estrada. Will continue to monitor and care for according to poc.
--- NOTE | 2020-03-18 15:40 | RAD ---
EXAM: CT Head without IV contrast INDICATION: Reason: Colon cancer with mets. Concern for post-op neurologic abnormalities / Spl. Instructions: / History: TECHNIQUE: Multi-detector row CT images were obtained of the head without the use of IV contrast. All CT scans performed at this facility utilize dose optimization techniques as appropriate to the exam, including the following: Automated exposure control and adjustment of the mA and/or KV according to patient size (this includes techniques or standardized protocols for targeted exams where dose is indication/reason for exam). COMPARISON: None FINDINGS: BRAIN PARENCHYMA: No evidence of acute intraparenchymal hemorrhage or infarct. Generalized volume loss and mild white matter low density compatible with chronic ischemic microvascular changes present. VENTRICLES & EXTRA-AXIAL SPACES: Ventricles are within normal limits. Basilar cisterns are patent. No pathologic extra-axial fluid collection or mass. ORBITS: Orbital contents are unremarkable. SINUSES: Visualized paranasal sinuses and mastoid air cells are clear. OSSEOUS & SOFT TISSUES: Calvarium and skull base are intact. IMPRESSION: No acute intracranial pathology on noncontrast CT Electronically signed by: Venita Gilmore MD (03/18/2020 3:37 PM) [id number]
--- NOTE | 2020-03-18 17:20 | PDOC ---
CARDIOLOGY PROGRESS NOTE SUBJECTIVE: No new events. HR stable OBJECTIVE: Vital Signs/I&O: Vital Signs Date Time Temp Pulse Resp B/P (MAP) Pulse Ox O2 Delivery O2 Flow Rate FiO2 03/18/20 14:08 97.8 102 115/81 (92) 98 Room Air 97.8 I & O 03/17/20 03/17/20 03/18/20 14:59 22:59 06:59 Intake Total 815 ml 1525 ml 999 ml Output Total 930 ml 560 ml 805 ml Balance -115 ml 965 ml 194 ml Objective: GEN.: No apparent distress. Alert and oriented. HEENT: Head is normocephalic, atraumatic NECK: Supple. LUNGS: Clear to auscultation. HEART: RRR, S1, S2 present. Peripheral pulses intact ABDOMEN: Soft, nontender. Positive bowel sounds. EXTREMITIES: Without any cyanosis. NEUROLOGIC: Normal speech, normal tone PSYCHIATRIC: Normal affect, normal mood. SKIN: No ulcerations CURRENT MEDICATIONS: Current Medications Medications (Trade) Dose Ordered Sig/Faisal Route PRN Reason Start Time Stop Time Status Last Admin Dose Admin Sodium Chloride 80 meq/Sodium Phosphate 15 mmol/ Potassium Chloride 50 meq/ Potassium Phosphate 15 mmol/ Magnesium Sulfate 15 meq/Calcium Gluconate 10 meq/ Multivitamins 10 ml/Chromium/ Copper/Manganese/ Seleni/Zn 1 ml/ Total Parenteral Nutrition/Amino Acids/Dextrose/ Fat Emulsion Intravenous 1,920 ml @ 80 mls/hr TPN CONT IV 03/17/20 22:00 03/18/20 21:59 03/17/20 22:01 Digoxin (Lanoxin) 500 mcg 1X ONCE IV 03/18/20 07:15 03/18/20 07:16 DC 03/18/20 07:11 Sodium Chloride 500 ml @ 500 mls/hr 1X ONCE IV 03/18/20 07:15 03/18/20 08:14 DC 03/18/20 08:24 DIAGNOSTIC TESTING: Labs: Laboratory Tests 03/18/20 05:30 Laboratory Tests Test 03/18/20 05:30 Sodium Level 140 mmol/L (136-145) Potassium Level 4.2 mmol/L (3.5-5.1) Chloride Level 107 mmol/L (98-107) Carbon Dioxide Level 23 mmol/L (21-32) Anion Gap 10 (6-14) Blood Urea Nitrogen 14 mg/dL (8-26) Creatinine 0.4 mg/dL (0.7-1.3) L Estimated GFR (Cockcroft-Gault) 212.1 Glucose Level 106 mg/dL (70-99) H Calcium Level 7.2 mg/dL (8.5-10.1) L ASSESSMENT: 1. Reactive tachycardia. 2. PAF. PLAN: 1. Continue current dose of metoprolol, will change to 25mg p.o bid Supportive care. Thanks Justicifation of Admission Dx: Justifications for Admission: Justification of Admission Dx: Yes JAMMIE HARDING MD Mar 18, 2020 17:20
[2020-03-18] MEDS: TAMSULOSIN 0.4 MG CAP.ER.24H. PO SCH (21:03)
[2020-03-18] MEDS: NYSTATIN 100,000 UNIT/GM TOPICAL CREAM 15GM TUBE. TP SCH (21:04)
[2020-03-18] MEDS ORDERED: AMINO ACID IV SCH (22:00)
[2020-03-18] MEDS ORDERED: DEXTROSE 70% IV SCH (22:00)
[2020-03-18] MEDS ORDERED: TOTAL PARENTERAL NUTRITION IV SCH (22:00)
[2020-03-18] MEDS ORDERED: [UNRECOGNIZED DRUG - OTHER] IV SCH (22:00)
[2020-03-19 02:58] VITALS: BP 106/70
[2020-03-19 06:11] LABS: BASO % 0 % (0-3); EOS # 0.1 x10^3/uL (0.0-0.7); EOS % 1 % (0-3); HEMOGLOBIN 8.6 g/dL (13.0-17.5); LYMPH # 0.5 x10^3/uL (1.0-4.8); LYMPH % 7 % (24-48); MEAN CORPUSCULAR HEMOGLOBIN 27 pg (25-35); MEAN CORPUSCULAR HGB CONC 33 g/dL (31-37); MEAN CORPUSCULAR VOLUME 81 fL (79-100); MONO # 0.6 x10^3/uL (0.0-1.1); MONO % 8 % (0-9); NEUT # 6.4 x10^3/uL (1.8-7.7); NEUT % 84 % (31-73); PLATELET COUNT 374 x10^3/uL (140-400); RED BLOOD COUNT 3.21 x10^6/uL (4.30-5.70); RED CELL DISTRIBUTION WIDTH 27.2 % (11.5-14.5); WHITE BLOOD COUNT 7.6 x10^3/uL (4.0-11.0)
[2020-03-19 06:38] LABS: ALBUMIN 1.3 g/dL (3.4-5.0); ALBUMIN/GLOBULIN RATIO 0.4 (1.0-1.7); CALCIUM 7.1 mg/dL (8.5-10.1); CREATININE 0.5 mg/dL (0.7-1.3); GFR 163.9; POTASSIUM 3.9 mmol/L (3.5-5.1); TOTAL BILIRUBIN 0.3 mg/dL (0.2-1.0); TOTAL PROTEIN 4.4 g/dL (6.4-8.2)
[2020-03-19 06:39] VITALS: BP 118/80
[2020-03-19] MEDS: IPRATROPIUM BROMIDE 0.5 MG/2.5 ML NEBU. NEB SCH ×3 (08:15→19:46)
--- NOTE | 2020-03-19 08:30 | PDOC ---
PULMONARY PROGRESS NOTES Subjective Patient extubated 03/15 Patient weak, not more short of air. Eating tolerating the diet Vitals Vital Signs Date Time Temp Pulse Resp B/P (MAP) Pulse Ox O2 Delivery O2 Flow Rate FiO2 03/19/20 08:16 96 Room Air 03/19/20 06:39 97.9 109 18 118/80 (93) 97.9 ROS: No Nausea, No Chest Pain, No Increase Cough General: Alert HEENT: Other (nc at perrl nose thrat clear neck no lad no thyromegaly) Lungs: Clear Cardiovascular: S1, S2, Other Abdomen: Soft, Other (Dressing in place, jace drain ) Neuro Exam: Alert Extremities: No Edema Skin: Warm Labs Laboratory Tests Test 03/17/20 09:10 03/18/20 05:30 03/19/20 06:00 White Blood Count 7.6 x10^3/uL (4.0-11.0) 7.6 x10^3/uL (4.0-11.0) Red Blood Count 3.54 x10^6/uL (4.30-5.70) 3.21 x10^6/uL (4.30-5.70) Hemoglobin 9.4 g/dL (13.0-17.5) 8.6 g/dL (13.0-17.5) Hematocrit 28.7 % (39.0-53.0) 26.0 % (39.0-53.0) Mean Corpuscular Volume 81 fL (79-100) 81 fL (79-100) Mean Corpuscular Hemoglobin 27 pg (25-35) 27 pg (25-35) Mean Corpuscular Hemoglobin Concent 33 g/dL (31-37) 33 g/dL (31-37) Red Cell Distribution Width 28.2 % (11.5-14.5) 27.2 % (11.5-14.5) Platelet Count 376 x10^3/uL (140-400) 374 x10^3/uL (140-400) Sodium Level 140 mmol/L (136-145) 138 mmol/L (136-145) Potassium Level 4.2 mmol/L (3.5-5.1) 3.9 mmol/L (3.5-5.1) Chloride Level 107 mmol/L (98-107) 106 mmol/L (98-107) Carbon Dioxide Level 23 mmol/L (21-32) 24 mmol/L (21-32) Anion Gap 10 (6-14) 8 (6-14) Blood Urea Nitrogen 14 mg/dL (8-26) 10 mg/dL (8-26) Creatinine 0.4 mg/dL (0.7-1.3) 0.5 mg/dL (0.7-1.3) Estimated GFR (Cockcroft-Gault) 212.1 163.9 Glucose Level 106 mg/dL (70-99) 85 mg/dL (70-99) Calcium Level 7.2 mg/dL (8.5-10.1) 7.1 mg/dL (8.5-10.1) Neutrophils (%) (Auto) 84 % (31-73) Lymphocytes (%) (Auto) 7 % (24-48) Monocytes (%) (Auto) 8 % (0-9) Eosinophils (%) (Auto) 1 % (0-3) Basophils (%) (Auto) 0 % (0-3) Neutrophils # (Auto) 6.4 x10^3/uL (1.8-7.7) Lymphocytes # (Auto) 0.5 x10^3/uL (1.0-4.8) Monocytes # (Auto) 0.6 x10^3/uL (0.0-1.1) Eosinophils # (Auto) 0.1 x10^3/uL (0.0-0.7) Basophils # (Auto) 0.0 x10^3/uL (0.0-0.2) BUN/Creatinine Ratio 20 (6-20) Total Bilirubin 0.3 mg/dL (0.2-1.0) Aspartate Amino Transf (AST/SGOT) 23 U/L (15-37) Alanine Aminotransferase (ALT/SGPT) 26 U/L (16-63) Alkaline Phosphatase 524 U/L (46-116) Total Protein 4.4 g/dL (6.4-8.2) Albumin 1.3 g/dL (3.4-5.0) Albumin/Globulin Ratio 0.4 (1.0-1.7) Laboratory Tests Test 03/19/20 06:00 White Blood Count 7.6 x10^3/uL (4.0-11.0) Red Blood Count 3.21 x10^6/uL (4.30-5.70) Hemoglobin 8.6 g/dL (13.0-17.5) Hematocrit 26.0 % (39.0-53.0) Mean Corpuscular Volume 81 fL (79-100) Mean Corpuscular Hemoglobin 27 pg (25-35) Mean Corpuscular Hemoglobin Concent 33 g/dL (31-37) Red Cell Distribution Width 27.2 % (11.5-14.5) Platelet Count 374 x10^3/uL (140-400) Neutrophils (%) (Auto) 84 % (31-73) Lymphocytes (%) (Auto) 7 % (24-48) Monocytes (%) (Auto) 8 % (0-9) Eosinophils (%) (Auto) 1 % (0-3) Basophils (%) (Auto) 0 % (0-3) Neutrophils # (Auto) 6.4 x10^3/uL (1.8-7.7) Lymphocytes # (Auto) 0.5 x10^3/uL (1.0-4.8) Monocytes # (Auto) 0.6 x10^3/uL (0.0-1.1) Eosinophils # (Auto) 0.1 x10^3/uL (0.0-0.7) Basophils # (Auto) 0.0 x10^3/uL (0.0-0.2) Sodium Level 138 mmol/L (136-145) Potassium Level 3.9 mmol/L (3.5-5.1) Chloride Level 106 mmol/L (98-107) Carbon Dioxide Level 24 mmol/L (21-32) Anion Gap 8 (6-14) Blood Urea Nitrogen 10 mg/dL (8-26) Creatinine 0.5 mg/dL (0.7-1.3) Estimated GFR (Cockcroft-Gault) 163.9 BUN/Creatinine Ratio 20 (6-20) Glucose Level 85 mg/dL (70-99) Calcium Level 7.1 mg/dL (8.5-10.1) Total Bilirubin 0.3 mg/dL (0.2-1.0) Aspartate Amino Transf (AST/SGOT) 23 U/L (15-37) Alanine Aminotransferase (ALT/SGPT) 26 U/L (16-63) Alkaline Phosphatase 524 U/L (46-116) Total Protein 4.4 g/dL (6.4-8.2) Albumin 1.3 g/dL (3.4-5.0) Albumin/Globulin Ratio 0.4 (1.0-1.7) Medications Active Scripts Medications Dose Route/Sig Max Daily Dose Days Date Category Flomax (Tamsulosin Hcl) 0.4 Mg Cap.er.24h 1 Cap PO QHS 03/02/20 Reported Comments CXR reviewed IMPRESSION: 1. Stable left basilar opacities and small left pleural effusion. Impression . IMPRESSION: 1. Acute hypoxemic respiratory failure, expected status post surgical intervention for colonic mass. Status post extubation 03/15 on ra 2. Obstructing colonic cancer. 3. History of prostate cancer. 4. Severe protein malnutrition present upon admission. 5. Tobacco dependent. 6. Chronic obstructive pulmonary disease. 7. SARS-CoV-2 negative. 8. Cholelithiasis. 9. Hyponatremia. 10. Protein malnutrition, present upon admission. 11. Benign prostatic hypertrophy. 12. S/p open right colon resection, partial resection of duodenum, placement of duodenostomy tube, cholecystectomy, ghost ileostomy 13. Acute blood loss anemia 14. Respiratory alkalosis 15. Hypocalcemia-- correct calcium WNL 16. 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 - Lymphovascular tumor invasion present. - Metastatic carcinoma involving 1 of 14 mesocolic lymph nodes. - Tumor involvement of radial margin of posterior aspect of cecum and proximal ascending colon. - Proximal (distal ileum) and distal (ascending colon) margins of resection negative for tumor. - Hypertrophy of muscular wall of appendix with focal serosal lymphovascular tumor invasion of proximal appendix. - Omentum negative for tumor. - Serosal adhesions of colon and appendix, focal. . B. Gallbladder, open cholecystectomy: - Polypoid cholesterolosis. - Chronic cholecystitis. . C. Tissue designated "right upper quadrant": - Segments of tumor showing invasive colorectal adenocarcinoma with prominent mucinous component, moderately differentiated. . (JPM:kaila; 03/07/2020) . Surgical Pathology Cancer Case Summary Protocol posting date: February 2017 COLON AND RECTUM: Resection, Including Transanal Disk Excision of Rectal Neoplasms Procedure ___ Right colectomy Tumor Site ___ Cecum ___ Ileocecal valve ___ Right (ascending) colon Tumor Size Greatest dimension: 12.5 cm Macroscopic Tumor Perforation ___ Present Histologic Type ___ Adenocarcinoma with prominent mucinous component and with focal poorly differentiated areas Histologic Grade ___ Other: Moderately to focally poorly differentiated Tumor Extension ___ Tumor invades through the muscularis propria into pericolorectal tissue Margins Proximal Margin ___ Uninvolved by invasive carcinoma + Distance of tumor from margin: 5.4 cm Distal Margin ___ Uninvolved by invasive carcinoma + Distance of tumor from margin: 11.2 cm ___ Involved by invasive carcinoma Radial or Mesenteric Margin ___ Involved by invasive carcinoma Lymphovascular Invasion ___ Present Perineural Invasion ___ Not identified + Type of Polyp in Which Invasive Carcinoma Arose + ___ Tubulovillous adenoma Tumor Deposits ___ Not identified Regional Lymph Nodes Number of Lymph Nodes Involved: 1 Number of Lymph Nodes Examined: 14 Pathologic Stage Classification (pTNM, AJCC 8th Edition) (Note M) Primary Tumor (pT) ___ pT4b: Tumor directly invades or adheres to adjacent organs or structures Regional Lymph Nodes (pN) ___ pN1: One to three regional lymph nodes are positive (tumor in lymph nodes measuring > or = 0.2 mm), or any number of tumor deposits are present and all identifiable lymph nodes are negative + Additional Pathologic Findings + ___ None identified (JACEM:ady 03/08/2020) MBRonny 03/08/2020 0951 Local Plan . Respiratory status compensated continue the same Advance diet Avoid sedation IV metoprolol, dig per cardiology DVT GI prophylaxis Monitor H&H Follow nephrology recs Cont. ABX DVT GI prophylaxis pt/ot D/W RN and RT, pt DOTTIE WILBURN MD Mar 19, 2020 08:29
[2020-03-19] MEDS: METOPROLOL TART IMMED RELEASE 25 MG TABLET. PO SCH ×2 (08:48→21:41)
[2020-03-19] MEDS: PANTOPRAZOLE IV PUSH 40 MG VIAL. IVP SCH (08:48)
[2020-03-19] MEDS: ENOXAPARIN 40 MG/0.4 ML SYRINGE. SQ SCH (08:49)
[2020-03-19] MEDS: NYSTATIN 100,000 UNIT/GM TOPICAL CREAM 15GM TUBE. TP SCH ×2 (09:08→21:47)
[2020-03-19] MEDS: TPN PER PHARMACY MC PRN (10:03)
--- NOTE | 2020-03-19 10:10 | NUR ---
Pharmacy TPN Dosing Note S: FABIANO HELLER is a 69 year old M Currently receiving Central Continuous TPN started 03/08/20 B:Pertinent PMH: NPO/SBO Height: 6 feet, 3 inches Weight: 85.5 kg Current diet: CLD LABS: Sodium: 138 Potassium: 3.9 Chloride: 106 Calcium: 7.1 Corrected Calcium: 9.26 Magnesium: 2.1 CO2: 24 SCr: 0.5 Glucose: 85 Albumin: 1.3 AST: 23 ALT: 26 TPN FORMULA: TPN TYPE: Central Continuous AMINO ACIDS: 80 gm DEXTROSE: 250 gm LIPIDS: 20 gm SODIUM CHLORIDE: 80 mEq SODIUM ACETATE: - mEq SODIUM PHOSPHATE: 15 mmol POTASSIUM CHLORIDE: 50 mEq POTASSIUM ACETATE: - mEq POTASSIUM PHOSPHATE: 15 mmol MAGNESIUM: 15 mEq CALCIUM: 10 mEq INSULIN: - units MULTIPLE VITAMIN: 10 ml TRACE ELEMENTS: 1 ml ml(s) TPN PLAN: Labs stable. Decreased volume of TPN slightly due to trending down plasma Na, addition of clear liquid diet. No other changes. R: Continue TPN ABOVE. Will monitor electrolytes, glucose, and tolerance to TPN. [facility], 03/19/20 [id number]
--- NOTE | 2020-03-19 10:22 | PDOC ---
Subjective: Subjective: Doing okay, "trying" to eat. Objective: Objective: D/w nurse - eating some, stooling. Reviewed other notes, note plans for psych consult. Remains on TPN. Oncology consult pending. Vital Signs: Vital Signs Date Time Temp Pulse Resp B/P (MAP) Pulse Ox O2 Delivery O2 Flow Rate FiO2 03/19/20 08:48 109 118/80 03/19/20 08:16 96 Room Air 03/19/20 06:39 97.9 18 97.9 Labs: Laboratory Tests Test 03/19/20 06:00 White Blood Count 7.6 x10^3/uL Red Blood Count 3.21 x10^6/uL Hemoglobin 8.6 g/dL Hematocrit 26.0 % Mean Corpuscular Volume 81 fL Mean Corpuscular Hemoglobin 27 pg Mean Corpuscular Hemoglobin Concent 33 g/dL Red Cell Distribution Width 27.2 % Platelet Count 374 x10^3/uL Neutrophils (%) (Auto) 84 % Lymphocytes (%) (Auto) 7 % Monocytes (%) (Auto) 8 % Eosinophils (%) (Auto) 1 % Basophils (%) (Auto) 0 % Neutrophils # (Auto) 6.4 x10^3/uL Lymphocytes # (Auto) 0.5 x10^3/uL Monocytes # (Auto) 0.6 x10^3/uL Eosinophils # (Auto) 0.1 x10^3/uL Basophils # (Auto) 0.0 x10^3/uL Sodium Level 138 mmol/L Potassium Level 3.9 mmol/L Chloride Level 106 mmol/L Carbon Dioxide Level 24 mmol/L Anion Gap 8 Blood Urea Nitrogen 10 mg/dL Creatinine 0.5 mg/dL Estimated GFR (Cockcroft-Gault) 163.9 BUN/Creatinine Ratio 20 Glucose Level 85 mg/dL Calcium Level 7.1 mg/dL Total Bilirubin 0.3 mg/dL Aspartate Amino Transf (AST/SGOT) 23 U/L Alanine Aminotransferase (ALT/SGPT) 26 U/L Alkaline Phosphatase 524 U/L Total Protein 4.4 g/dL Albumin 1.3 g/dL Albumin/Globulin Ratio 0.4 Imaging: [employer] Bedside Swallow Eval 03/16 Swallow eval completed. Limited consistencies tested d/t restrictions p.surgery. See full rpt in interventions section. IMPRESSIONS: Functional oropharyngeal swallow. Swallow appears safe and efficient for tested consistencies-thin and honey thick liquids. Would initiate diet per MD. [place] swallow perspective, anticipate pt could safely advance diet as indicated per med status and w/MD approval. RECOMMENDATIONS: Diet as per MD. Ok for thin liquids per this assessment. Will f/u per POC. DW RN Sofi and pt. Head CT 03/18 IMPRESSION: No acute intracranial pathology on noncontrast CT PE: GEN: NAD LUNGS: clear anteriorly HEART: mildly tachycardic ABD: BS+, soft, mildly sore NEURO/PSYCH: appropriate during my interview A/P: Colon cancer s/p resection -- Stable GI-vickers. Justicifation of Admission Dx: Justifications for Admission: Justification of Admission Dx: Yes LONG RIOS Mar 19, 2020 10:22
--- NOTE | 2020-03-19 10:54 | PDOC ---
DELANO MORAES LEAN COACH 03/19/20 1054: CARDIO Progress Notes Date and Time Date of Service 03/19/20 Time of Evaluation 1120 Subjective Subjective: No Chest Pain, No shortness of breath, Other (extubated) Vitals Vitals Vital Signs Date Time Temp Pulse Resp B/P (MAP) Pulse Ox O2 Delivery O2 Flow Rate FiO2 03/19/20 08:48 109 118/80 03/19/20 08:16 96 Room Air 03/19/20 06:39 97.9 18 97.9 Weight Weight [ ] Input and Output Intake and Output Intake and Output 03/19/20 07:00 Intake Total 680 ml Output Total 3625 ml Balance -2945 ml Intake Oral 680 ml Output Urine Total 3100 ml Drainage Total 525 ml # Bowel Movements 1 Laboratory Labs Laboratory Tests Test 03/19/20 06:00 White Blood Count 7.6 x10^3/uL (4.0-11.0) Red Blood Count 3.21 x10^6/uL (4.30-5.70) Hemoglobin 8.6 g/dL (13.0-17.5) Hematocrit 26.0 % (39.0-53.0) Mean Corpuscular Volume 81 fL (79-100) Mean Corpuscular Hemoglobin 27 pg (25-35) Mean Corpuscular Hemoglobin Concent 33 g/dL (31-37) Red Cell Distribution Width 27.2 % (11.5-14.5) Platelet Count 374 x10^3/uL (140-400) Neutrophils (%) (Auto) 84 % (31-73) Lymphocytes (%) (Auto) 7 % (24-48) Monocytes (%) (Auto) 8 % (0-9) Eosinophils (%) (Auto) 1 % (0-3) Basophils (%) (Auto) 0 % (0-3) Neutrophils # (Auto) 6.4 x10^3/uL (1.8-7.7) Lymphocytes # (Auto) 0.5 x10^3/uL (1.0-4.8) Monocytes # (Auto) 0.6 x10^3/uL (0.0-1.1) Eosinophils # (Auto) 0.1 x10^3/uL (0.0-0.7) Basophils # (Auto) 0.0 x10^3/uL (0.0-0.2) Sodium Level 138 mmol/L (136-145) Potassium Level 3.9 mmol/L (3.5-5.1) Chloride Level 106 mmol/L (98-107) Carbon Dioxide Level 24 mmol/L (21-32) Anion Gap 8 (6-14) Blood Urea Nitrogen 10 mg/dL (8-26) Creatinine 0.5 mg/dL (0.7-1.3) Estimated GFR (Cockcroft-Gault) 163.9 BUN/Creatinine Ratio 20 (6-20) Glucose Level 85 mg/dL (70-99) Calcium Level 7.1 mg/dL (8.5-10.1) Total Bilirubin 0.3 mg/dL (0.2-1.0) Aspartate Amino Transf (AST/SGOT) 23 U/L (15-37) Alanine Aminotransferase (ALT/SGPT) 26 U/L (16-63) Alkaline Phosphatase 524 U/L (46-116) Total Protein 4.4 g/dL (6.4-8.2) Albumin 1.3 g/dL (3.4-5.0) Albumin/Globulin Ratio 0.4 (1.0-1.7) Microbiology Micro Microbiology 03/02/20 Urine Culture - Final, Complete Review of Systems Constitutional: yes: weakness, alert, oriented Ears/Nose/Throat: Yes: no symptom reported Eyes: Yes: no symptom reported Pulmonary: Yes no symptom reported Cardiovascular: Yes edema Gastrointestional: Yes: no symptom reported Genitourinary: Yes: no symptom reported Musculoskeletal: Yes: no symptom reported Skin: Yes no symptom reported Psychiatric/Neurological: Yes: no symptom reported Endocrine: Yes: no symptom reported Physical Exam HEENT: Neck Supple W Full Motion Chest: Symmetric LUNGS: Other (diminished bases ) Heart: RRR (SR) Extremities: Other (anasarca ) Neurology: alert, follow commands, confused Assessment Assessment 1. Obstructive colonic mass; s/p open colon resection, cholecystectomy. Path c/w metastatic adenocarcinoma 2. Acute respiratory failure, post-operative. S/p extubation this am 3. Arrhythmia; PSVT, reactive tachycardia. Echo with preserved LV systolic function 4. Acute blood loss anemia, s/p transfusion. Hgb stable 5. Hypertension; low normotensive 6. Hypocalcemia 7. Protein calorie malnutrition, anasarca; on TPN 8. H/o prostate CA, BPH 9. Tobaccoism Recommendations Continue metoprolol for rate control Ongoing support Pt/OT Plans for LTAC Justicifation of Admission Dx: Justifications for Admission: Justification of Admission Dx: Yes JAMMIE HARDING MD 03/20/20 0859: CARDIO Progress Notes Plan Plan Late entry for 03/19/2020 Patient seen and examined. Agree with above nurse practitioner note. Supportive care. Continue low-dose metoprolol DELANO MORAES APRN Mar 19, 2020 10:54 JAMMIE HARDING MD Mar 20, 2020 08:59
[2020-03-19 11:00] VITALS: BP 104/66
--- NOTE | 2020-03-19 11:18 | PDOC ---
SURGICAL PROGRESS NOTE Subjective tolerating diet minimal pain some flatus, small stool Vital Signs Vital Signs Date Time Temp Pulse Resp B/P (MAP) Pulse Ox O2 Delivery O2 Flow Rate FiO2 03/19/20 08:48 109 118/80 03/19/20 08:16 96 Room Air 03/19/20 06:39 97.9 18 97.9 I&O Intake and Output 03/19/20 07:00 Intake Total 680 ml Output Total 3625 ml Balance -2945 ml Intake Oral 680 ml Output Urine Total 3100 ml Drainage Total 525 ml # Bowel Movements 1 General: Alert, Oriented X3, Cooperative Abdomen: Soft, Other (drains in place, incision c/d/i, no erythema ) Labs Laboratory Tests Test 03/18/20 05:30 03/19/20 06:00 Sodium Level 140 mmol/L (136-145) 138 mmol/L (136-145) Potassium Level 4.2 mmol/L (3.5-5.1) 3.9 mmol/L (3.5-5.1) Chloride Level 107 mmol/L (98-107) 106 mmol/L (98-107) Carbon Dioxide Level 23 mmol/L (21-32) 24 mmol/L (21-32) Anion Gap 10 (6-14) 8 (6-14) Blood Urea Nitrogen 14 mg/dL (8-26) 10 mg/dL (8-26) Creatinine 0.4 mg/dL (0.7-1.3) 0.5 mg/dL (0.7-1.3) Estimated GFR (Cockcroft-Gault) 212.1 163.9 Glucose Level 106 mg/dL (70-99) 85 mg/dL (70-99) Calcium Level 7.2 mg/dL (8.5-10.1) 7.1 mg/dL (8.5-10.1) White Blood Count 7.6 x10^3/uL (4.0-11.0) Red Blood Count 3.21 x10^6/uL (4.30-5.70) Hemoglobin 8.6 g/dL (13.0-17.5) Hematocrit 26.0 % (39.0-53.0) Mean Corpuscular Volume 81 fL (79-100) Mean Corpuscular Hemoglobin 27 pg (25-35) Mean Corpuscular Hemoglobin Concent 33 g/dL (31-37) Red Cell Distribution Width 27.2 % (11.5-14.5) Platelet Count 374 x10^3/uL (140-400) Neutrophils (%) (Auto) 84 % (31-73) Lymphocytes (%) (Auto) 7 % (24-48) Monocytes (%) (Auto) 8 % (0-9) Eosinophils (%) (Auto) 1 % (0-3) Basophils (%) (Auto) 0 % (0-3) Neutrophils # (Auto) 6.4 x10^3/uL (1.8-7.7) Lymphocytes # (Auto) 0.5 x10^3/uL (1.0-4.8) Monocytes # (Auto) 0.6 x10^3/uL (0.0-1.1) Eosinophils # (Auto) 0.1 x10^3/uL (0.0-0.7) Basophils # (Auto) 0.0 x10^3/uL (0.0-0.2) BUN/Creatinine Ratio 20 (6-20) Total Bilirubin 0.3 mg/dL (0.2-1.0) Aspartate Amino Transf (AST/SGOT) 23 U/L (15-37) Alanine Aminotransferase (ALT/SGPT) 26 U/L (16-63) Alkaline Phosphatase 524 U/L (46-116) Total Protein 4.4 g/dL (6.4-8.2) Albumin 1.3 g/dL (3.4-5.0) Albumin/Globulin Ratio 0.4 (1.0-1.7) Laboratory Tests Test 03/19/20 06:00 White Blood Count 7.6 x10^3/uL (4.0-11.0) Red Blood Count 3.21 x10^6/uL (4.30-5.70) Hemoglobin 8.6 g/dL (13.0-17.5) Hematocrit 26.0 % (39.0-53.0) Mean Corpuscular Volume 81 fL (79-100) Mean Corpuscular Hemoglobin 27 pg (25-35) Mean Corpuscular Hemoglobin Concent 33 g/dL (31-37) Red Cell Distribution Width 27.2 % (11.5-14.5) Platelet Count 374 x10^3/uL (140-400) Neutrophils (%) (Auto) 84 % (31-73) Lymphocytes (%) (Auto) 7 % (24-48) Monocytes (%) (Auto) 8 % (0-9) Eosinophils (%) (Auto) 1 % (0-3) Basophils (%) (Auto) 0 % (0-3) Neutrophils # (Auto) 6.4 x10^3/uL (1.8-7.7) Lymphocytes # (Auto) 0.5 x10^3/uL (1.0-4.8) Monocytes # (Auto) 0.6 x10^3/uL (0.0-1.1) Eosinophils # (Auto) 0.1 x10^3/uL (0.0-0.7) Basophils # (Auto) 0.0 x10^3/uL (0.0-0.2) Sodium Level 138 mmol/L (136-145) Potassium Level 3.9 mmol/L (3.5-5.1) Chloride Level 106 mmol/L (98-107) Carbon Dioxide Level 24 mmol/L (21-32) Anion Gap 8 (6-14) Blood Urea Nitrogen 10 mg/dL (8-26) Creatinine 0.5 mg/dL (0.7-1.3) Estimated GFR (Cockcroft-Gault) 163.9 BUN/Creatinine Ratio 20 (6-20) Glucose Level 85 mg/dL (70-99) Calcium Level 7.1 mg/dL (8.5-10.1) Total Bilirubin 0.3 mg/dL (0.2-1.0) Aspartate Amino Transf (AST/SGOT) 23 U/L (15-37) Alanine Aminotransferase (ALT/SGPT) 26 U/L (16-63) Alkaline Phosphatase 524 U/L (46-116) Total Protein 4.4 g/dL (6.4-8.2) Albumin 1.3 g/dL (3.4-5.0) Albumin/Globulin Ratio 0.4 (1.0-1.7) Problem List Problems Medical Problems: (1) Anemia Status: Acute (2) Colonic mass Status: Acute (3) Fatigue Status: Acute (4) Hypocalcemia Status: Acute (5) Nausea & vomiting Status: Acute (6) SBO (small bowel obstruction) Status: Acute Assessment/Plan supportive care dc planning will plan to remove drains soon Justicifation of Admission Dx: Justifications for Admission: Justification of Admission Dx: Yes ISAAC LUEVANO [employer]S DESIGNER Mar 19, 2020 11:18
--- NOTE | 2020-03-19 11:32 | NUR ---
SS following up with discharge planning. SS reviewed pt chart and discussed with pt RN. Pt is currently on room air and TPN. Pt has drains x3. Pt accepted at [facility], ; fax [phone]. SS phoned and faxed clinical updates to [facility]. Psychiatric consult ordered. SS will continue to follow for discharge planning.
[2020-03-19 15:00] VITALS: BP 108/71
--- NOTE | 2020-03-19 16:27 | PDOC ---
PROGRESS NOTES Chief Complaint Chief Complaint A/P: Acute respiratory failure, post-operative. S/p intubation. ? PNA Small bowel dilatation/obstruction suspicious for primary colon cancer 10.5cm mass with surrounding lymph nodes concerning for metastatic disease 10.5 cm colonic mass. Colonic mass abuts the right hepatic lobe inferior margin as well as the duodenum and anterior right kidney (extending through or deforming Gerota's fascia), suspicious for primary colon cancer. Prominent associated lymph nodes are seen, possibly metastatic Obstructing right colon cancer Dialated Appendix fatty liver dz Gallstones Microcytic Anemia Alkaline Phosphatemia Hyponatremia Mild Leukocytosis Tachycardia H/o prostate cancer in remission Severe protein calorie malnutrition LE edema - BNP of 350, no cardiac history and no symptoms of CHF. This is unlikely to be cardiac related at all. Likely likely lymphatic obstruction due to abdominal mass. Hyponatremia - likely due to poor PO intake, SERUM OSMOLALITY PENDING HYPOTENSION, POSSIBLE SEPSIS SVT - Arrhythmia; Brief period of SVT. Otherwise, has been maintaining SR/ST Acute blood loss anemia, s/p transfusion Hypocalcemia Acute encephalopathy Plan remains critically ill 38 min History of Present Illness History of Present Illness Mr Claudio is a 69 yo CM hx of prostate cancer s/p radiation, HTN, prediabetes now off meds who presents with vomiting fatigue diarrhea weight loss and decreased appetite for 1 month. He went to see his PCP because over the past week he had sudden onset lower extremity edema, patient had labs drawn as outpatient and called by PCP to go to the hospital for a blood transfusion and treatment for CHF. No history of CHF. On ROS he just notes his bones feel heavy. He also notes over the past 2 months sometimes he will choke on food and vomited up. His last bowel movement was 2 days ago and it was diarrhea. He has not been able to eat very well. He just feels tired. He stopped smoking over 25 years ago and he only did smoke cigars at that time. With regard to his prostate cancer he states that he had 43 radiation treatments and had a PET scan at the end of 2019 and was told he is in remission. He has never had a colonoscopy. in ED patient found to have hb of 9.8. na 130. noted to be tachy with HR 110. Patient lives with 101 year old mom. His mother has history of stage III colon cancer diagnosed at age 76. His brother has history of prostate cancer, father of lung cancer. 03/05: To OR for open right colon resection with partial duodenal resection, duodenostomy tube, cholecystectomy w/ cholangiogram and ghost ileostomy. Returned to ICU on ventilator. Pulm consulted 03/12: SVT - cardiology consulted, resolved without intervention 03/13. off pressors, vitals better, weaning sedation and weaning vent 03/14: Failed vent wean. He is obviously confused, but attempting to self extubate with mittens on . Labs improved. AC mode with rate of 12, 500cc/40% FiO2/ PEEP of 5. 03/15: Afebrile. Hb 8.7 hypotensive overnight. Vent on AC mode on wean ABG 7.36/40 4/133 on PEEP 5 FiO2 40%, extubated with me present not speaking but nodding somewhat appropriately to questions. Appears comfortable 03/16: On O2. Still on TPN, multiple BM yesterday and overnight. He is a bit confused. Legs much more swollen. Labs stable. 03/17: Diuresis of 4 L after Lasix and albumin yesterday. Afebrile overnight very tachycardic in the 160s overnight given metoprolol. BP low now, HR in 90s, labs actually appear stable. He is still very weak and a bit more clear headed, though confused on timeline. 03/18: Less tachy overnight, required digoxin for rate control in addition to metoprolol due to low blood pressure. Afebrile. No CP or SOB. Still thinks he has been in here 5 weeks and still is convinced he had colon cancer surgery and then a cardiac surgery. 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 Says but then all of a sudden he woke up and I am right here and I am "Tripp Claudio". When asked if he wants to speak to a psychiatrist about this he asked for our little [id number] to remain between us. CT head with white matter changes consistent with aging, no acute infarcts. Afebrile. Tolerating diet. Had a small BM. Drains still in place. Albumin 1.3, Hb 8.6, Alk phos very elevated, otherwise labs stable. Plan: Cont CVC Psych consult [facility] for discharge planning when more stable Vitals Vitals Vital Signs Date Time Temp Pulse Resp B/P (MAP) Pulse Ox O2 Delivery O2 Flow Rate FiO2 03/19/20 11:47 95 Room Air 03/19/20 11:00 97.5 98 18 104/66 (79) 97.5 Physical Exam General: Alert, Oriented X3, Cooperative Heart: Regular rate (ST) Lungs: Clear Abdomen: Soft, Other (drains in place, incision c/d/i, no erythema ) Extremities: Other (2+ bilateral LE pitting edema, anasarca ) Skin: No significant lesion Labs LABS Laboratory Tests Test 03/19/20 06:00 White Blood Count 7.6 x10^3/uL (4.0-11.0) Red Blood Count 3.21 x10^6/uL (4.30-5.70) Hemoglobin 8.6 g/dL (13.0-17.5) Hematocrit 26.0 % (39.0-53.0) Mean Corpuscular Volume 81 fL (79-100) Mean Corpuscular Hemoglobin 27 pg (25-35) Mean Corpuscular Hemoglobin Concent 33 g/dL (31-37) Red Cell Distribution Width 27.2 % (11.5-14.5) Platelet Count 374 x10^3/uL (140-400) Neutrophils (%) (Auto) 84 % (31-73) Lymphocytes (%) (Auto) 7 % (24-48) Monocytes (%) (Auto) 8 % (0-9) Eosinophils (%) (Auto) 1 % (0-3) Basophils (%) (Auto) 0 % (0-3) Neutrophils # (Auto) 6.4 x10^3/uL (1.8-7.7) Lymphocytes # (Auto) 0.5 x10^3/uL (1.0-4.8) Monocytes # (Auto) 0.6 x10^3/uL (0.0-1.1) Eosinophils # (Auto) 0.1 x10^3/uL (0.0-0.7) Basophils # (Auto) 0.0 x10^3/uL (0.0-0.2) Sodium Level 138 mmol/L (136-145) Potassium Level 3.9 mmol/L (3.5-5.1) Chloride Level 106 mmol/L (98-107) Carbon Dioxide Level 24 mmol/L (21-32) Anion Gap 8 (6-14) Blood Urea Nitrogen 10 mg/dL (8-26) Creatinine 0.5 mg/dL (0.7-1.3) Estimated GFR (Cockcroft-Gault) 163.9 BUN/Creatinine Ratio 20 (6-20) Glucose Level 85 mg/dL (70-99) Calcium Level 7.1 mg/dL (8.5-10.1) Total Bilirubin 0.3 mg/dL (0.2-1.0) Aspartate Amino Transf (AST/SGOT) 23 U/L (15-37) Alanine Aminotransferase (ALT/SGPT) 26 U/L (16-63) Alkaline Phosphatase 524 U/L (46-116) Total Protein 4.4 g/dL (6.4-8.2) Albumin 1.3 g/dL (3.4-5.0) Albumin/Globulin Ratio 0.4 (1.0-1.7) Assessment and Plan Assessmemt and Plan Problems Medical Problems: (1) Anemia Status: Acute (2) Colonic mass Status: Acute (3) Fatigue Status: Acute (4) Hypocalcemia Status: Acute (5) Nausea & vomiting Status: Acute (6) SBO (small bowel obstruction) Status: Acute Comment Review of Relevant I have reviewed the following items radhames (where applicable) has been applied. Labs Laboratory Tests Test 03/18/20 05:30 03/19/20 06:00 Sodium Level 140 mmol/L (136-145) 138 mmol/L (136-145) Potassium Level 4.2 mmol/L (3.5-5.1) 3.9 mmol/L (3.5-5.1) Chloride Level 107 mmol/L (98-107) 106 mmol/L (98-107) Carbon Dioxide Level 23 mmol/L (21-32) 24 mmol/L (21-32) Anion Gap 10 (6-14) 8 (6-14) Blood Urea Nitrogen 14 mg/dL (8-26) 10 mg/dL (8-26) Creatinine 0.4 mg/dL (0.7-1.3) 0.5 mg/dL (0.7-1.3) Estimated GFR (Cockcroft-Gault) 212.1 163.9 Glucose Level 106 mg/dL (70-99) 85 mg/dL (70-99) Calcium Level 7.2 mg/dL (8.5-10.1) 7.1 mg/dL (8.5-10.1) White Blood Count 7.6 x10^3/uL (4.0-11.0) Red Blood Count 3.21 x10^6/uL (4.30-5.70) Hemoglobin 8.6 g/dL (13.0-17.5) Hematocrit 26.0 % (39.0-53.0) Mean Corpuscular Volume 81 fL (79-100) Mean Corpuscular Hemoglobin 27 pg (25-35) Mean Corpuscular Hemoglobin Concent 33 g/dL (31-37) Red Cell Distribution Width 27.2 % (11.5-14.5) Platelet Count 374 x10^3/uL (140-400) Neutrophils (%) (Auto) 84 % (31-73) Lymphocytes (%) (Auto) 7 % (24-48) Monocytes (%) (Auto) 8 % (0-9) Eosinophils (%) (Auto) 1 % (0-3) Basophils (%) (Auto) 0 % (0-3) Neutrophils # (Auto) 6.4 x10^3/uL (1.8-7.7) Lymphocytes # (Auto) 0.5 x10^3/uL (1.0-4.8) Monocytes # (Auto) 0.6 x10^3/uL (0.0-1.1) Eosinophils # (Auto) 0.1 x10^3/uL (0.0-0.7) Basophils # (Auto) 0.0 x10^3/uL (0.0-0.2) BUN/Creatinine Ratio 20 (6-20) Total Bilirubin 0.3 mg/dL (0.2-1.0) Aspartate Amino Transf (AST/SGOT) 23 U/L (15-37) Alanine Aminotransferase (ALT/SGPT) 26 U/L (16-63) Alkaline Phosphatase 524 U/L (46-116) Total Protein 4.4 g/dL (6.4-8.2) Albumin 1.3 g/dL (3.4-5.0) Albumin/Globulin Ratio 0.4 (1.0-1.7) Laboratory Tests Test 03/19/20 06:00 White Blood Count 7.6 x10^3/uL (4.0-11.0) Red Blood Count 3.21 x10^6/uL (4.30-5.70) Hemoglobin 8.6 g/dL (13.0-17.5) Hematocrit 26.0 % (39.0-53.0) Mean Corpuscular Volume 81 fL (79-100) Mean Corpuscular Hemoglobin 27 pg (25-35) Mean Corpuscular Hemoglobin Concent 33 g/dL (31-37) Red Cell Distribution Width 27.2 % (11.5-14.5) Platelet Count 374 x10^3/uL (140-400) Neutrophils (%) (Auto) 84 % (31-73) Lymphocytes (%) (Auto) 7 % (24-48) Monocytes (%) (Auto) 8 % (0-9) Eosinophils (%) (Auto) 1 % (0-3) Basophils (%) (Auto) 0 % (0-3) Neutrophils # (Auto) 6.4 x10^3/uL (1.8-7.7) Lymphocytes # (Auto) 0.5 x10^3/uL (1.0-4.8) Monocytes # (Auto) 0.6 x10^3/uL (0.0-1.1) Eosinophils # (Auto) 0.1 x10^3/uL (0.0-0.7) Basophils # (Auto) 0.0 x10^3/uL (0.0-0.2) Sodium Level 138 mmol/L (136-145) Potassium Level 3.9 mmol/L (3.5-5.1) Chloride Level 106 mmol/L (98-107) Carbon Dioxide Level 24 mmol/L (21-32) Anion Gap 8 (6-14) Blood Urea Nitrogen 10 mg/dL (8-26) Creatinine 0.5 mg/dL (0.7-1.3) Estimated GFR (Cockcroft-Gault) 163.9 BUN/Creatinine Ratio 20 (6-20) Glucose Level 85 mg/dL (70-99) Calcium Level 7.1 mg/dL (8.5-10.1) Total Bilirubin 0.3 mg/dL (0.2-1.0) Aspartate Amino Transf (AST/SGOT) 23 U/L (15-37) Alanine Aminotransferase (ALT/SGPT) 26 U/L (16-63) Alkaline Phosphatase 524 U/L (46-116) Total Protein 4.4 g/dL (6.4-8.2) Albumin 1.3 g/dL (3.4-5.0) Albumin/Globulin Ratio 0.4 (1.0-1.7) Microbiology 03/02/20 Urine Culture - Final, Complete Medications Current Medications Sodium Chloride 1,000 ml @ 1,000 mls/hr 1X ONCE IV Last administered on 03/02/20at 17:05; Start 03/02/20 at 16:45; Stop 03/02/20 at 17:44; Status DC Calcium Gluconate (Calcium Gluconate) 1,000 mg 1X ONCE IVP Last administered on 03/02/20at 18:21; Start 03/02/20 at 18:15; Stop 03/02/20 at 18:18; Status DC Iohexol (Omnipaque 300 Mg/ml) 75 ml 1X ONCE IV Last administered on 03/02/20at 18:34; Start 03/02/20 at 18:30; Stop 03/02/20 at 18:31; Status DC Pantoprazole Sodium (PROTONIX VIAL for IV PUSH) 40 mg 1X ONCE IVP Last administered on 03/02/20at 18:41; Start 03/02/20 at 18:45; Stop 03/02/20 at 18:46; Status DC Sodium Chloride 1,000 ml @ 100 mls/hr 1X ONCE IV Last administered on 03/02/20at 19:04; Start 03/02/20 at 18:45; Stop 03/03/20 at 04:44; Status DC Enoxaparin Sodium (Lovenox Per Pharmacy Prophylaxis Dosing) 1 each PRN DAILY PRN MC SEE COMMENTS; Start 03/02/20 at 20:30; Status Cancel Enoxaparin Sodium (Lovenox 40mg Syringe) 40 mg Q24H SQ Last administered on 03/02/20at 23:48; Start 03/02/20 at 21:00; Stop 03/03/20 at 08:48; Status DC Tamsulosin HCl (Flomax) 0.4 mg HS PO Last administered on 03/18/20at 21:03; Start 03/02/20 at 23:45 Sodium Chloride 1,000 ml @ 100 mls/hr Q10H IV Last administered on 03/03/20at 11:07; Start 03/03/20 at 10:00; Stop 03/03/20 at 14:58; Status DC Ondansetron HCl (Zofran) 4 mg PRN Q4HRS PRN IV NAUSEA/VOMITING Last admini stered on 03/04/20at 22:31; Start 03/03/20 at 09:45; Stop 03/05/20 at 16:15; Status DC Acetaminophen (Tylenol Supp) 650 mg PRN Q4HRS PRN OK TEMP OVER 100.4F OR MILD PAIN; Start 03/03/20 at 09:45 Polyethylene Glycol (miraLAX PACKET) 17 gm DAILY PO Last administered on 03/04/20at 09:21; Start 03/03/20 at 10:00; Stop 03/06/20 at 10:25; Status DC Bisacodyl (Dulcolax Supp) 10 mg PRN DAILY PRN OK CONSTIPATION; Start 03/03/20 at 09:45; Stop 03/06/20 at 10:25; Status DC Bisacodyl (Dulcolax Tab) 10 mg PRN DAILY PRN PO CONSTIPATION Last administered on 03/03/20at 13:47; Start 03/03/20 at 09:45; Stop 03/06/20 at 10:25; Status DC Psyllium Hydrophilic Mucilloid (Metamucil Fiber Packet) 1 pkt QHS PO Last administered on 03/04/20at 21:03; Start 03/03/20 at 21:00; Stop 03/06/20 at 10:25; Status DC Polyethylene Glycol (miraLAX PACKET) 17 gm QHS PO Last administered on 03/04/20at 21:03; Start 03/03/20 at 21:00; Stop 03/06/20 at 10:25; Status DC Docusate Sodium (Colace) 100 mg DAILY PO Last administered on 03/04/20at 09:21; Start 03/03/20 at 12:00; Stop 03/06/20 at 10:25; Status DC Amino Acids/ Glycerin/ Electrolytes 1,000 ml @ 80 mls/hr [id number] IV Last administered on 03/07/20at 02:41; Start 03/03/20 at 15:00; Stop 03/07/20 at 13:22; Status DC Furosemide (Lasix) 40 mg 1X ONCE IVP Last administered on 03/03/20at 16:48; Start 03/03/20 at 15:00; Stop 03/03/20 at 15:01; Status DC Iohexol (Omnipaque 300 Mg/ml) 75 ml 1X ONCE IV Last administered on 03/03/20at 16:33; Start 03/03/20 at 16:15; Stop 03/03/20 at 16:16; Status DC Info (CONTRAST GIVEN -- Rx MONITORING) 1 each PRN DAILY PRN MC SEE COMMENTS; Start 03/03/20 at 16:15; Stop 03/05/20 at 16:15; Status DC Bisacodyl (Dulcolax Supp) 10 mg 1X ONCE OK Last administered on 03/04/20at 12:18; Start 03/04/20 at 10:00; Stop 03/04/20 at 10:05; Status DC Cefoxitin Sodium (Mefoxin) 2 gm 1X PREOP IVP Last administered on 03/05/20at 13:09; Start 03/05/20 at 10:00; Stop 03/08/20 at 11:05; Status DC Lidocaine (Lidoderm) 1 patch DAILY TD ; Start 03/04/20 at 16:30; Status Cancel Miscellaneous (Lidoderm Patch Removal) 1 ea QHS ; Start 03/04/20 at 21:00; Status Cancel Ondansetron HCl (Zofran) 4 mg PRN Q6HRS PRN IVP NAUSEA/VOMITING; Start 03/05/20 at 07:15; Stop 03/05/20 at 20:00; Status DC Fentanyl Citrate (Fentanyl 2ml Vial) 25 mcg PRN Q5MIN PRN IVP MILD PAIN 1-3; Start 03/05/20 at 07:15; Stop 03/05/20 at 20:00; Status DC Fentanyl Citrate (Fentanyl 2ml Vial) 50 mcg PRN Q5MIN PRN IVP MODERATE TO SEVERE PAIN; Start 03/05/20 at 07:15; Stop 03/05/20 at 20:00; Status DC Morphine Sulfate (Morphine Sulfate) 1 mg PRN Q10MIN PRN IVP SEVERE PAIN 7-10; Start 03/05/20 at 07:15; Stop 03/05/20 at 20:00; Status DC Ringer's Solution 1,000 ml @ 30 mls/hr Q24H IV Last administered on 03/05/20at 09:59; Start 03/05/20 at 07:05; Stop 03/05/20 at 19:04; Status DC Lidocaine HCl (Xylocaine-Mpf 1% 2ml Vial) 2 ml 1X PRN PRN ID IV START; Start 03/05/20 at 07:15; Stop 03/05/20 at 20:00; Status DC Hydromorphone HCl (Dilaudid) 0.5 mg PRN Q10MIN PRN IVP SEV PAIN, Second choice; Start 03/05/20 at 07:15; Stop 03/05/20 at 20:00; Status DC Prochlorperazine Edisylate (Compazine) 5 mg PACU PRN PRN IVP NAUSEA, MRX1; Start 03/05/20 at 07:15; Stop 03/06/20 at 07:14; Status DC Pantoprazole Sodium (PROTONIX VIAL for IV PUSH) 40 mg DAILYAC IVP Last administered on 03/19/20at 08:48; Start 03/05/20 at 10:30; Stop 03/19/20 at 10:23; Status DC Propofol (Diprivan) 200 mg STK-MED ONCE IV ; Start 03/05/20 at 10:23; Stop 03/05/20 at 10:23; Status DC Lidocaine HCl (Lidocaine Pf 2% Vial) 5 ml STK-MED ONCE .ROUTE ; Start 03/05/20 at 10:23; Stop 03/05/20 at 10:23; Status DC Ondansetron HCl (Zofran) 4 mg STK-MED ONCE .ROUTE ; Start 03/05/20 at 10:23; Stop 03/05/20 at 10:23; Status DC Dexamethasone Sodium Phosphate (Decadron) 4 mg STK-MED ONCE .ROUTE ; Start 03/05/20 at 10:23; Stop 03/05/20 at 10:23; Status DC Succinylcholine Chloride (Anectine) 200 mg STK-MED ONCE .ROUTE ; Start 03/05/20 at 10:23; Stop 03/05/20 at 10:23; Status DC Rocuronium Blain (Zemuron) 50 mg STK-MED ONCE .ROUTE ; Start 03/05/20 at 10:24; Stop 03/05/20 at 10:24; Status DC Fentanyl Citrate (Fentanyl 2ml Vial) 100 mcg STK-MED ONCE .ROUTE ; Start 03/05/20 at 10:24; Stop 03/05/20 at 10:24; Status DC Iohexol (Omnipaque 300 Mg/ml) 50 ml STK-MED ONCE .ROUTE Last administered on 03/05/20at 11:43; Start 03/05/20 at 10:41; Stop 03/05/20 at 10:41; Status DC Bupivacaine HCl/ Epinephrine Bitart (Sensorcain-Epi 0.5%-1:321101 Mpf) 30 ml S TK-MED ONCE .ROUTE ; Start 03/05/20 at 10:42; Stop 03/05/20 at 10:42; Status DC Phenylephrine HCl (PHENYLEPHRINE in 0.9% NACL PF) 1 mg STK-MED ONCE IV ; Start 03/05/20 at 12:13; Stop 03/05/20 at 12:14; Status DC Ephedrine Sulfate (ePHEDrine PF IN SALINE SYRINGE) 50 mg STK-MED ONCE IV ; Start 03/05/20 at 12:13; Stop 03/05/20 at 12:14; Status DC Phenylephrine HCl (Devin-Synephrine Inj) 10 mg STK-MED ONCE .ROUTE ; Start 03/05/20 at 12:15; Stop 03/05/20 at 12:15; Status DC Rocuronium Blain (Zemuron) 50 mg STK-MED ONCE .ROUTE ; Start 03/05/20 at 12:27; Stop 03/05/20 at 12:27; Status DC Cefoxitin Sodium (Mefoxin) 1 gm STK-MED ONCE IVP ; Start 03/05/20 at 12:57; Stop 03/05/20 at 12:57; Status DC Albumin Human 500 ml @ As Directed STK-MED ONCE IV ; Start 03/05/20 at 13:08; Stop 03/05/20 at 13:08; Status DC Albumin Human 500 ml @ As Directed STK-MED ONCE IV ; Start 03/05/20 at 13:13; Stop 03/05/20 at 13:14; Status DC Phenylephrine HCl (Devin-Synephrine Inj) 10 mg STK-MED ONCE .ROUTE ; Start 03/05/20 at 13:35; Stop 03/05/20 at 13:35; Status DC Phenylephrine HCl (Devin-Synephrine Inj) 10 mg STK-MED ONCE .ROUTE ; Start 03/05/20 at 13:48; Stop 03/05/20 at 13:49; Status DC Sevoflurane (Ultane) 90 ml STK-MED ONCE IH ; Start 03/05/20 at 14:30; Stop 03/05/20 at 14:30; Status DC Phenylephrine HCl (Devin-Synephrine Inj) 10 mg STK-MED ONCE .ROUTE ; Start 03/05/20 at 14:35; Stop 03/05/20 at 14:36; Status DC Midazolam HCl 100 mg/Sodium Chloride 100 ml @ 1 mls/hr CONT PRN IV SEE I/O RECORD Last administered on 03/13/20at 19:50; Start 03/05/20 at 15:15; Stop 03/17/20 at 08:30; Status DC Fentanyl Citrate 30 ml @ 2.5 mls/hr CONT PRN PRN IV PER PROTOCOL Last administered on 03/15/20at 02:05; Start 03/05/20 at 15:15; Stop 03/17/20 at 08:30; Status DC Naloxone HCl (Narcan) 0.4 mg PRN Q2MIN PRN IV SEE INSTRUCTIONS; Start 03/05/20 at 15:15; Stop 03/06/20 at 09:45; Status DC Sodium Chloride 1,000 ml @ 25 mls/hr Q24H IV ; Start 03/05/20 at 15:13; Stop 03/06/20 at 14:24; Status DC Norepinephrine Bitartrate 8 mg/ Dextrose 258 ml @ 15.287 mls/ hr CONT PRN IV PER PROTOCOL Last administered on 03/11/20at 18:15; Start 03/05/20 at 15:30; Stop 03/18/20 at 07:52; Status DC Enoxaparin Sodium (Lovenox 40mg Syringe) 40 mg Q24H SQ Last administered on 03/19/20at 08:49; Start 03/06/20 at 08:00 Sodium Chloride (Normal Saline Flush) 3 ml QSHIFT PRN IV AFTER MEDS AND BLOOD DRAWS; Start 03/05/20 at 16:15 Ringer's Solution 1,000 ml @ 100 mls/hr Q10H IV Last administered on 03/08/20at 11:19; Start 03/05/20 at 16:09; Stop 03/08/20 at 18:54; Status DC Naloxone HCl (Narcan) 0.4 mg PRN Q2MIN PRN IV SEE INSTRUCTIONS; Start 03/05/20 at 16:15 Sodium Chloride 1,000 ml @ 25 mls/hr Q24H IV ; Start 03/05/20 at 16:09; Stop 03/06/20 at 14:24; Status DC Morphine Sulfate 30 ml @ 0 mls/hr CONT PRN PRN IV PER PROTOCOL; Start 03/05/20 at 16:15; Stop 03/06/20 at 09:48; Status DC Ondansetron HCl (Zofran) 4 mg PRN Q6HRS PRN IVP NAUESA, 1ST CHOICE; Start 03/05/20 at 16:15 Piperacillin Sod/ Tazobactam Sod 3.375 gm/Sodium Chloride 50 ml @ 100 mls/hr Q6HRS IV Last administered on 03/17/20at 05:58; Start 03/05/20 at 17:00; Stop 03/17/20 at 08:30; Status DC Ringer's Solution 1,000 ml @ 999 mls/hr 1X ONCE IV Last administered on 03/05/20at 20:59; Start 03/05/20 at 20:00; Stop 03/05/20 at 21:00; Status DC Vasopressin 20 unit/Dextrose 101 ml @ 12 mls/hr CONT PRN IV SEE I/O RECORD Last administered on 03/11/20at 06:25; Start 03/05/20 at 20:00; Stop 03/17/20 at 08:30; Status DC Ringer's Solution 1,000 ml @ 999 mls/hr 1X ONCE IV Last administered on 03/06/20at 01:07; Start 03/06/20 at 01:00; Stop 03/06/20 at 02:00; Status DC Ringer's Solution 1,000 ml @ 999 mls/hr 1X ONCE IV Last administered on 03/06/20at 05:18; Start 03/06/20 at 05:00; Stop 03/06/20 at 06:00; Status DC Ringer's Solution 1,000 ml @ 999 mls/hr 1X ONCE IV Last administered on 03/06/20at 09:54; Start 03/06/20 at 09:45; Stop 03/06/20 at 10:45; Status DC Ringer's Solution 1,000 ml @ 999 mls/hr 1X ONCE IV Last administered on 03/06/20at 13:40; Start 03/06/20 at 13:45; Stop 03/06/20 at 14:45; Status DC Ringer's Solution 1,000 ml @ 999 mls/hr 1X ONCE IV Last administered on 03/06/20at 18:43; Start 03/06/20 at 18:15; Stop 03/06/20 at 19:15; Status DC Sodium Chloride 200 ml @ 50 mls/hr 1X ONCE IV Last administered on 03/07/20at 13:49; Start 03/07/20 at 13:30; Stop 03/07/20 at 17:29; Status DC Potassium Phosphate 13.6 mmol/Sodium Chloride 254.5333 ml @ 62.5 mls/hr Q4H IV Last administered on 03/08/20at 16:52; Start 03/08/20 at 08:30; Stop 03/08/20 at 20:29; Status DC Magnesium Sulfate 50 ml @ 25 mls/hr 1X ONCE IV Last administered on 03/08/20at 08:00; Start 03/08/20 at 08:00; Stop 03/08/20 at 09:59; Status DC Sodium Chloride 300 ml @ 50 mls/hr 1X ONCE IV Last administered on 03/08/20at 08:00; Start 03/08/20 at 08:00; Stop 03/08/20 at 13:59; Status DC Info (Tpn Per Pharmacy) 1 each PRN DAILY PRN MC SEE COMMENTS Last administered on 03/19/20at 10:03; Start 03/08/20 at 11:00 Sodium Chloride 100 meq/Potassium Chloride 50 meq/ Potassium Phosphate 18 mmol/ Magnesium Sulfate 15 meq/Calcium Gluconate 10 meq/ Multivitamins 10 ml/Chromium/ Copper/Manganese/ Seleni/Zn 1 ml/ Total Parenteral Nutrition/Amino Acids/Dextrose/ Fat Emulsion Intravenous 1,512 ml @ 63 mls/hr TPN CONT IV ; Start 03/08/20 at 22:00; Stop 03/08/20 at 11:31; Status DC Sodium Chloride 100 meq/Potassium Chloride 50 meq/ Potassium Phosphate 18 mmol/ Magnesium Sulfate 15 meq/Calcium Gluconate 10 meq/ Multivitamins 10 ml/Chromium/ Copper/Manganese/ Seleni/Zn 1 ml/ Total Parenteral Nutrition/Amino Acids/Dextrose/ Fat Emulsion Intravenous 1,920 ml @ 80 mls/hr TPN CONT IV Last administered on 03/08/20at 23:04; Start 03/08/20 at 22:00; Stop 03/09/20 at 21:59; Status DC Potassium Chloride/Water 100 ml @ 100 mls/hr 1X ONCE IV Last administered on 03/08/20at 15:51; Start 03/08/20 at 16:00; Stop 03/08/20 at 16:59; Status DC Sodium Chloride 100 meq/Potassium Chloride 50 meq/ Potassium Phosphate 18 mmol/ Magnesium Sulfate 15 meq/Calcium Gluconate 10 meq/ Multivitamins 10 ml/Chromium/ Copper/Manganese/ Seleni/Zn 1 ml/ Total Parenteral Nutrition/Amino Acids/Dextrose/ Fat Emulsion Intravenous 1,920 ml @ 80 mls/hr TPN CONT IV Last administered on 03/09/20at 22:00; Start 03/09/20 at 22:00; Stop 03/10/20 at 21:59; Status DC Sodium Phosphate 15 mmol/Sodium Chloride 255 ml @ 63.75 mls/ hr 1X ONCE IV Last administered on 03/10/20at 08:45; Start 03/10/20 at 09:00; Stop 03/10/20 at 12:59; Status DC Sodium Chloride 100 meq/Sodium Phosphate 15 mmol/ Potassium Chloride 50 meq/ Potassium Phosphate 18 mmol/ Magnesium Sulfate 15 meq/Calcium Gluconate 10 meq/ Multivitamins 10 ml/Chromium/ Copper/Manganese/ Seleni/Zn 1 ml/ Total Parenteral Nutrition/Amino Acids/Dextrose/ Fat Emulsion Intravenous 1,920 ml @ 80 mls/hr T PN CONT IV Last administered on 03/10/20at 21:41; Start 03/10/20 at 22:00; Stop 03/11/20 at 21:59; Status DC Sodium Phosphate 15 mmol/Sodium Chloride 255 ml @ 63.75 mls/ hr 1X ONCE IV Last administered on 03/11/20at 12:00; Start 03/11/20 at 10:00; Stop 03/11/20 at 13:59; Status DC Sodium Chloride 100 meq/Sodium Phosphate 15 mmol/ Potassium Chloride 50 meq/ Potassium Phosphate 18 mmol/ Magnesium Sulfate 15 meq/Calcium Gluconate 10 meq/ Multivitamins 10 ml/Chromium/ Copper/Manganese/ Seleni/Zn 1 ml/ Total Parenteral Nutrition/Amino Acids/Dextrose/ Fat Emulsion Intravenous 1,920 ml @ 80 mls/hr TPN CONT IV Last administered on 03/11/20at 21:52; Start 03/11/20 at 22:00; Stop 03/12/20 at 21:59; Status DC Dexmedetomidine HCl 400 mcg/ Sodium Chloride 100 ml @ 0 mls/hr CONT PRN IV SEE COMMENTS Last administered on 03/15/20at 02:04; Start 03/11/20 at 10:00; Stop 03/18/20 at 07:50; Status DC Sodium Chloride 500 ml @ 500 mls/hr 1X PRN PRN IV SEE COMMENTS; Start 03/11/20 at 10:00; Stop 03/19/20 at 09:54; Status DC Atropine Sulfate (ATROPINE 0.5mg SYRINGE) 0.5 mg PRN Q5MIN PRN IV SEE COMMENTS; Start 03/11/20 at 10:00; Stop 03/19/20 at 09:53; Status DC Calcium Gluconate (Calcium Gluconate) 1,000 mg 1X ONCE IVP Last administered on 03/11/20at 12:35; Start 03/11/20 at 12:30; Stop 03/11/20 at 12:31; Status DC Sodium Chloride 80 meq/Sodium Phosphate 15 mmol/ Potassium Chloride 50 meq/ Potassium Phosphate 15 mmol/ Magnesium Sulfate 15 meq/Calcium Gluconate 10 meq/ Multivitamins 10 ml/Chromium/ Copper/Manganese/ Seleni/Zn 1 ml/ Total Parenteral Nutrition/Amino Acids/Dextrose/ Fat Emulsion Intravenous 1,920 ml @ 80 mls/hr TPN CONT IV Last administered on 03/12/20at 22:06; Start 03/12/20 at 22:00; Stop 03/13/20 at 21:59; Status DC Metoprolol Tartrate (Lopressor Vial) 2.5 mg Q6HRS IVP Last administered on 03/14/20at 08:50; Start 03/12/20 at 12:00; Stop 03/14/20 at 11:24; Status DC Albuterol Sulfate (Ventolin Neb Soln) 2.5 mg 1X ONCE NEB Last administered on 03/13/20at 00:00; Start 03/13/20 at 00:00; Stop 03/13/20 at 00:01; Status DC Sodium Chloride 80 meq/Sodium Phosphate 15 mmol/ Potassium Chloride 50 meq/ Potassium Phosphate 15 mmol/ Magnesium Sulfate 15 meq/Calcium Gluconate 10 meq/ Multivitamins 10 ml/Chromium/ Copper/Manganese/ Seleni/Zn 1 ml/ Total Parenteral Nutrition/Amino Acids/Dextrose/ Fat Emulsion Intravenous 1,920 ml @ 80 mls/hr TPN CONT IV Last administered on 03/13/20at 22:01; Start 03/13/20 at 22:00; Stop 03/14/20 at 21:59; Status DC Albuterol/ Ipratropium (Duoneb) 3 ml RTQID NEB Last administered on 03/17/20at 07:58; Start 03/13/20 at 12:00; Stop 03/17/20 at 11:51; Status DC Sodium Chloride 80 meq/Sodium Phosphate 15 mmol/ Potassium Chloride 50 meq/ Potassium Phosphate 15 mmol/ Magnesium Sulfate 15 meq/Calcium Gluconate 10 meq/ Multivitamins 10 ml/Chromium/ Copper/Manganese/ Seleni/Zn 1 ml/ Total Parenteral Nutrition/Amino Acids/Dextrose/ Fat Emulsion Intravenous 1,920 ml @ 80 mls/hr TPN CONT IV Last administered on 03/14/20at 21:54; Start 03/14/20 at 22:00; Stop 03/15/20 at 21:59; Status DC Metoprolol Tartrate (Lopressor Vial) 5 mg Q6HRS IVP Last administered on 03/14/20at 18:25; Start 03/14/20 at 12:00; Stop 03/15/20 at 14:17; Status DC Hydralazine HCl (Apresoline Inj) 10 mg PRN Q4HRS PRN IVP ELEVATED BP, SEE COMMENTS; Start 03/14/20 at 11:30 Sodium Chloride 80 meq/Sodium Phosphate 15 mmol/ Potassium Chloride 50 meq/ Potassium Phosphate 15 mmol/ Magnesium Sulfate 15 meq/Calcium Gluconate 10 meq/ Multivitamins 10 ml/Chromium/ Copper/Manganese/ Seleni/Zn 1 ml/ Total Parenteral Nutrition/Amino Acids/Dextrose/ Fat Emulsion Intravenous 1,920 ml @ 80 mls/hr TPN CONT IV Last administered on 03/15/20at 22:10; Start 03/15/20 at 22:00; Stop 03/16/20 at 21:59; Status DC Metoprolol Tartrate (Lopressor Vial) 2.5 mg Q6HRS IVP Last administered on 03/16/20at 17:18; Start 03/15/20 at 18:00; Stop 03/16/20 at 17:45; Status DC Albumin Human 500 ml @ 125 mls/hr 1X ONCE IV Last administered on 03/16/20at 10:14; Start 03/16/20 at 09:15; Stop 03/16/20 at 13:14; Status DC Furosemide (Lasix) 40 mg 1X ONCE IVP Last administered on 03/16/20at 12:17; S tart 03/16/20 at 09:15; Stop 03/16/20 at 09:16; Status DC Sodium Chloride 80 meq/Sodium Phosphate 15 mmol/ Potassium Chloride 50 meq/ Potassium Phosphate 15 mmol/ Magnesium Sulfate 15 meq/Calcium Gluconate 10 meq/ Multivitamins 10 ml/Chromium/ Copper/Manganese/ Seleni/Zn 1 ml/ Total Parenteral Nutrition/Amino Acids/Dextrose/ Fat Emulsion Intravenous 1,920 ml @ 80 mls/hr TPN CONT IV Last administered on 03/16/20at 22:11; Start 03/16/20 at 22:00; Stop 03/17/20 at 21:59; Status DC Metoprolol Tartrate (Lopressor) 12.5 mg Q6HRS PO Last administered on 03/18/20at 12:40; Start 03/16/20 at 18:00; Stop 03/18/20 at 17:30; Status DC Metoprolol Tartrate (Lopressor) 12.5 mg Q6HRS PO ; Start 03/16/20 at 18:00; Status UNV Metoprolol Tartrate (Lopressor Vial) 5 mg PRN Q6HRS PRN IVP HYPERTENSION Last administered on 03/18/20at 03:18; Start 03/17/20 at 02:00 Albumin Human 500 ml @ 125 mls/hr 1X ONCE IV Last administered on 03/17/20at 08:59; Start 03/17/20 at 08:30; Stop 03/17/20 at 12:29; Status DC Vitamin A/Vitamin D (Vitamin A & D Ointment) 1 yury PRN Q1HR PRN TP SKIN PROTECTION; Start 03/17/20 at 10:15 Sodium Chloride 80 meq/Sodium Phosphate 15 mmol/ Potassium Chloride 50 meq/ Potassium Phosphate 15 mmol/ Magnesium Sulfate 15 meq/Calcium Gluconate 10 meq/ Multivitamins 10 ml/Chromium/ Copper/Manganese/ Seleni/Zn 1 ml/ Total Parenteral Nutrition/Amino Acids/Dextrose/ Fat Emulsion Intravenous 1,920 ml @ 80 mls/hr TPN CONT IV Last administered on 03/17/20at 22:01; Start 03/17/20 at 22:00; Stop 03/18/20 at 21:59; Status DC Ipratropium [place] (Atrovent) 0.5 mg RTQID NEB Last administered on 03/18/20at 20:12; Start 03/17/20 at 12:00; Stop 03/18/20 at 21:43; Status DC Digoxin (Lanoxin) 500 mcg 1X ONCE IV Last administered on 03/17/20at 12:54; Start 03/17/20 at 12:45; Stop 03/17/20 at 12:48; Status DC Sodium Chloride 500 ml @ 500 mls/hr 1X ONCE IV Last administered on 03/17/20at 12:53; Start 03/17/20 at 12:45; Stop 03/17/20 at 13:44; Status DC Digoxin (Lanoxin) 500 mcg 1X ONCE IV Last administered on 03/18/20at 07:11; Start 03/18/20 at 07:15; Stop 03/18/20 at 07:16; Status DC Sodium Chloride 500 ml @ 500 mls/hr 1X ONCE IV Last administered on 03/18/20at 08:24; Start 03/18/20 at 07:15; Stop 03/18/20 at 08:14; Status DC Nystatin (Mycostatin) 1 yury BID TP Last administered on 03/19/20at 09:08; Start 03/18/20 at 21:00 Sodium Chloride 80 meq/Sodium Phosphate 15 mmol/ Potassium Chloride 50 meq/ Potassium Phosphate 15 mmol/ Magnesium Sulfate 15 meq/Calcium Gluconate 10 meq/ Multivitamins 10 ml/Chromium/ Copper/Manganese/ Seleni/Zn 1 ml/ Total Parenteral Nutrition/Amino Acids/Dextrose/ Fat Emulsion Intravenous 1,920 ml @ 80 mls/hr TPN CONT IV Last administered on 03/18/20at 21:04; Start 03/18/20 at 22:00; Stop 03/19/20 at 21:59 Metoprolol Tartrate (Lopressor) 25 mg BID PO Last administered on 03/19/20at 08:48; Start 03/18/20 at 21:00 Ipratropium [place] (Atrovent) 0.5 mg TID NEB Last administered on 03/19/20at 11:47; Start 03/19/20 at 09:00 Sodium Chloride 80 meq/Sodium Phosphate 15 mmol/ Potassium Chloride 50 meq/ Potassium Phosphate 15 mmol/ Magnesium Sulfate 15 meq/Calcium Gluconate 10 meq/ Multivitamins 10 ml/Chromium/ Copper/Manganese/ Seleni/Zn 1 ml/ Total Parenteral Nutrition/Amino Acids/Dextrose/ Fat Emulsion Intravenous 1,800 ml @ 75 mls/hr TPN CONT IV ; Start 03/19/20 at 22:00; Stop 03/20/20 at 21:59 Pantoprazole Sodium (Protonix) 40 mg DAILYAC PO ; Start 03/20/20 at 07:30 Active Scripts Active Reported Flomax (Tamsulosin Hcl) 0.4 Mg Cap.er.24h 1 Cap PO QHS Vitals/I & O Vital Sign - Last 24 Hours 03/18/20 03/18/20 03/18/20 03/18/20 19:25 20:00 20:14 21:03 Temp 97.8 97.8 Pulse 108 108 B/P (MAP) 120/77 (91) 120/77 Pulse Ox 94 94 O2 Delivery Room Air Room Air Room Air 03/18/20 03/19/20 03/19/20 03/19/20 22:26 02:58 06:39 08:00 Temp 97.9 98.2 97.9 97.9 98.2 97.9 Pulse 102 96 109 Resp 18 18 18 B/P (MAP) 118/71 (87) 106/70 (82) 118/80 (93) Pulse Ox 92 98 98 O2 Delivery Room Air Room Air Room Air Room Air 03/19/20 03/19/20 03/19/20 03/19/20 08:16 08:48 11:00 11:47 Temp 97.5 97.5 Pulse 109 98 Resp 18 B/P (MAP) 118/80 104/66 (79) Pulse Ox 96 99 95 O2 Delivery Room Air Room Air Room Air Intake and Output 03/18/20 03/18/20 03/19/20 15:00 23:00 07:00 Intake Total 0 ml 680 ml 0 ml Output Total 240 ml 1595 ml 1790 ml Balance -240 ml -915 ml -1790 ml Nutrition Consultation Dietary Evaluation: Recommendations by RD: Dietary education by RD, Increase Calorie Intake, PPN/TPN Comments: Continue w/TPN for nutrition at this time, recommend adjust macronutrients to following AA, 250g dextrose, 20g lipids Expected Outcomes/Goals: New goal 03/08: TPN to meet >65% est needs while intubated - met, new goal established New goal 03/15: TPN infusion to meet >75% est needs Malnutrition Findings: Food and Nutrition Intake (Mod: <75% est energy req 7days Weight Status: Appropriate Justicifation of Admission Dx: Justifications for Admission: Justification of Admission Dx: Yes RAIN CRYSTAL MD Mar 19, 2020 16:27
--- NOTE | 2020-03-19 17:07 | PDOC1 ---
History & Psych Evaluation Date of Admission: Date of Admission DATE: 03/19/20 TIME: 16:50 Source: Source: Caregiver, Chart review, Patient Identification: Identification He is a pleasant 69-year-old gentleman, who lives with his mother. Chief Complaint: Chief Complaint Delusional, thinking of to Tripp Claudio History of Present Illness: HPI: He is a 69-year-old pleasant gentleman who apparently denies previous history of psychiatric illness admitted with a small bowel obstruction found to have primary colon cancer. He is S/P surgical intervention. Additionally, he has multiple medical comorbidities including prostate cancer treated with radiation. Reportedly, he is delusional talking about 2 " Tripp Claudio". Additionally, he has been cremated and had previously heart transplant which per record no evidence of cardiac surgery. When seen, he is assertively stating that there are 2 Tripp Cox one is cremated that is why he is not having his Social Security income. States, he does not have any evidence however he thinks that it is happening. States he wanted no or help how to figure out about the issue as he is worried about his Social Security income. In addition to that, he is found that he had previously cardiac open heart surgery and received heart transplant. However, according to the chart review there is no history of cardiac surgery. He also reporting having lung surgery as well. Denies history of depression or anxiety. Anxious about his social security secondary to delusional thinking. Denies suicidal or homicidal thoughts. No evidence of surya or hypomania. Denies auditory or visual hallucinations. No other stigmata of psychosis noted. Past Psychiatric History: Denies past psychiatric history of mental health issues. Denies history of psychiatric hospital admission. Denies previous history of suicidal attempt or suicidal ideation. Past Medical History: Please see medical chart for details. History of multiple medical comorbidities. Family History: Denies family history of psychiatric illness or suicide. Social History: Social History: He worked in 3 major jobs. Presently he is on Social Security income. Reportedly had stable jobs. He is living with his mother and a full-time caregiver. Denies legal issues. Denies illicit substance use. Used to smoke cigars quit 1 year ago. Endorsing history of 6-7 beers or more on some week days and weekends for 30+ years. Current Medications: Current Medications Current Medications Medications (Trade) Dose Ordered Sig/Faisal Start Time Stop Time Status Last Admin Dose Admin Acetaminophen (Tylenol Supp) 650 mg PRN Q4HRS PRN 03/03/20 09:45 Albumin Human 500 ml @ 125 mls/hr 1X ONCE 03/17/20 08:30 03/17/20 12:29 DC 03/17/20 08:59 125 MLS/HR Albuterol Sulfate (Ventolin Neb Soln) 2.5 mg 1X ONCE 03/13/20 00:00 03/13/20 00:01 DC 03/13/20 00:00 2.5 MG Albuterol/ Ipratropium (Duoneb) 3 ml RTQID 03/13/20 12:00 03/17/20 11:51 DC 03/17/20 07:58 3 ML Amino Acids/ Glycerin/ Electrolytes 1,000 ml @ 80 mls/hr [id number] 03/03/20 15:00 03/07/20 13:22 DC 03/07/20 02:41 80 MLS/HR Atropine Sulfate (ATROPINE 0.5mg SYRINGE) 0.5 mg PRN Q5MIN PRN 03/11/20 10:00 03/19/20 09:53 DC Bisacodyl (Dulcolax Supp) 10 mg 1X ONCE 03/04/20 10:00 03/04/20 10:05 DC 03/04/20 12:18 10 MG Bisacodyl (Dulcolax Tab) 10 mg PRN DAILY PRN 03/03/20 09:45 03/06/20 10:25 DC 03/03/20 13:47 10 MG Bupivacaine HCl/ Epinephrine Bitart (Sensorcain-Epi 0.5%-1:527254 Mpf) 30 ml STK-MED ONCE 03/05/20 10:42 03/05/20 10:42 DC Calcium Gluconate (Calcium Gluconate) 1,000 mg 1X ONCE 03/11/20 12:30 03/11/20 12:31 DC 03/11/20 12:35 1,000 MG Cefoxitin Sodium (Mefoxin) 1 gm STK-MED ONCE 03/05/20 12:57 03/05/20 12:57 DC Dexamethasone Sodium Phosphate (Decadron) 4 mg STK-MED ONCE 03/05/20 10:23 03/05/20 10:23 DC Dexmedetomidine HCl 400 mcg/ Sodium Chloride 100 ml @ 0 mls/hr CONT PRN 03/11/20 10:00 03/18/20 07:50 DC 03/15/20 02:04 7.7 MLS/HR Digoxin (Lanoxin) 500 mcg 1X ONCE 03/18/20 07:15 03/18/20 07:16 DC 03/18/20 07:11 500 MCG Docusate Sodium (Colace) 100 mg DAILY 03/03/20 12:00 03/06/20 10:25 DC 03/04/20 09:21 100 MG Enoxaparin Sodium (Lovenox 40mg Syringe) 40 mg Q24H 03/06/20 08:00 03/19/20 08:49 40 MG Enoxaparin Sodium (Lovenox Per Pharmacy Prophylaxis Dosing) 1 each PRN DAILY PRN 03/02/20 20:30 Cancel Ephedrine Sulfate (ePHEDrine PF IN SALINE SYRINGE) 50 mg STK-MED ONCE 03/05/20 12:13 03/05/20 12:14 DC Fentanyl Citrate 30 ml @ 2.5 mls/hr CONT PRN PRN 03/05/20 15:15 03/17/20 08:30 DC 03/15/20 02:05 2.5 MLS/HR Fentanyl Citrate (Fentanyl 2ml Vial) 100 mcg STK-MED ONCE 03/05/20 10:24 03/05/20 10:24 DC Furosemide (Lasix) 40 mg 1X ONCE 03/16/20 09:15 03/16/20 09:16 DC 03/16/20 12:17 40 MG Hydralazine HCl (Apresoline Inj) 10 mg PRN Q4HRS PRN 03/14/20 11:30 Hydromorphone HCl (Dilaudid) 0.5 mg PRN Q10MIN PRN 03/05/20 07:15 03/05/20 20:00 DC Info (CONTRAST GIVEN -- Rx MONITORING) 1 each PRN DAILY PRN 03/03/20 16:15 03/05/20 16:15 DC Info (Tpn Per Pharmacy) 1 each PRN DAILY PRN 03/08/20 11:00 03/19/20 10:03 1 EACH Iohexol (Omnipaque 300 Mg/ml) 50 ml STK-MED ONCE 03/05/20 10:41 03/05/20 10:41 DC 03/05/20 11:43 27 ML Ipratropium [place] (Atrovent) 0.5 mg TID 03/19/20 09:00 03/19/20 11:47 0.5 MG Lidocaine (Lidoderm) 1 patch DAILY 03/04/20 16:30 Cancel Lidocaine HCl (Lidocaine Pf 2% Vial) 5 ml STK-MED ONCE 03/05/20 10:23 03/05/20 10:23 DC Lidocaine HCl (Xylocaine-Mpf 1% 2ml Vial) 2 ml 1X PRN PRN 03/05/20 07:15 03/05/20 20:00 DC Magnesium Sulfate 50 ml @ 25 mls/hr 1X ONCE 03/08/20 08:00 03/08/20 09:59 DC 03/08/20 08:00 25 MLS/HR Metoprolol Tartrate (Lopressor Vial) 5 mg PRN Q6HRS PRN 03/17/20 02:00 03/18/20 03:18 5 MG Metoprolol Tartrate (Lopressor) 25 mg BID 03/18/20 21:00 03/19/20 08:48 25 MG Midazolam HCl 100 mg/Sodium Chloride 100 ml @ 1 mls/hr CONT PRN 03/05/20 15:15 03/17/20 08:30 DC 03/13/20 19:50 7 MLS/HR Miscellaneous (Lidoderm Patch Removal) 1 ea QHS 03/04/20 21:00 Cancel Morphine Sulfate 30 ml @ 0 mls/hr CONT PRN PRN 03/05/20 16:15 03/06/20 09:48 DC Morphine Sulfate (Morphine Sulfate) 1 mg PRN Q10MIN PRN 03/05/20 07:15 03/05/20 20:00 DC Naloxone HCl (Narcan) 0.4 mg PRN Q2MIN PRN 03/05/20 16:15 Norepinephrine Bitartrate 8 mg/ Dextrose 258 ml @ 15.287 mls/ hr CONT PRN 03/05/20 15:30 03/18/20 07:52 DC 03/11/20 18:15 15.287 MLS/HR Nystatin (Mycostatin) 1 yury BID 03/18/20 21:00 03/19/20 09:08 1 YURY Ondansetron HCl (Zofran) 4 mg PRN Q6HRS PRN 03/05/20 16:15 Pantoprazole Sodium (PROTONIX VIAL for IV PUSH) 40 mg DAILYAC 03/05/20 10:30 03/19/20 10:23 DC 03/19/20 08:48 40 MG Pantoprazole Sodium (Protonix) 40 mg DAILYAC 03/20/20 07:30 Phenylephrine HCl (Devin-Synephrine Inj) 10 mg STK-MED ONCE 03/05/20 14:35 03/05/20 14:36 DC Phenylephrine HCl (PHENYLEPHRINE in 0.9% NACL PF) 1 mg STK-MED ONCE 03/05/20 12:13 03/05/20 12:14 DC Piperacillin Sod/ Tazobactam Sod 3.375 gm/Sodium Chloride 50 ml @ 100 mls/hr Q6HRS 03/05/20 17:00 03/17/20 08:30 DC 03/17/20 05:58 100 MLS/HR Polyethylene Glycol (miraLAX PACKET) 17 gm QHS 03/03/20 21:00 03/06/20 10:25 DC 03/04/20 21:03 17 GM Potassium Chloride/Water 100 ml @ 100 mls/hr 1X ONCE 03/08/20 16:00 03/08/20 16:59 DC 03/08/20 15:51 100 MLS/HR Potassium Phosphate 13.6 mmol/Sodium Chloride 254.5333 ml @ 62.5 mls/hr Q4H 03/08/20 08:30 03/08/20 20:29 DC 03/08/20 16:52 62.5 MLS/HR Prochlorperazine Edisylate (Compazine) 5 mg PACU PRN PRN 03/05/20 07:15 03/06/20 07:14 DC Propofol (Diprivan) 200 mg STK-MED ONCE 03/05/20 10:23 03/05/20 10:23 DC Psyllium Hydrophilic Mucilloid (Metamucil Fiber Packet) 1 pkt QHS 03/03/20 21:00 03/06/20 10:25 DC 03/04/20 21:03 1 PKT Ringer's Solution 1,000 ml @ 999 mls/hr 1X ONCE 03/06/20 18:15 03/06/20 19:15 DC 03/06/20 18:43 999 MLS/HR Risperidone (RisperDAL) 1 mg QHS 03/19/20 21:00 Rocuronium [place] (Zemuron) 50 mg STK-MED ONCE 03/05/20 12:27 03/05/20 12:27 DC Sevoflurane (Ultane) 90 ml STK-MED ONCE 03/05/20 14:30 03/05/20 14:30 DC Sodium Chloride (Normal Saline Flush) 3 ml QSHIFT PRN 03/05/20 16:15 Sodium Chloride 80 meq/Sodium Phosphate 15 mmol/ Potassium Chloride 50 meq/ Potassium Phosphate 15 mmol/ Magnesium Sulfate 15 meq/Calcium Gluconate 10 meq/ Multivitamins 10 ml/Chromium/ Copper/Manganese/ Seleni/Zn 1 ml/ Total Parenteral Nutrition/Amino Acids/Dextrose/ Fat Emulsion Intravenous 1,800 ml @ 75 mls/hr TPN CONT 03/19/20 22:00 03/20/20 21:59 Sodium Chloride 100 meq/Potassium Chloride 50 meq/ Potassium Phosphate 18 mmol/ Magnesium Sulfate 15 meq/Calcium Gluconate 10 meq/ Multivitamins 10 ml/Chromium/ Copper/Manganese/ Seleni/Zn 1 ml/ Total Parenteral Nutrition/Amino Acids/Dextrose/ Fat Emulsion Intravenous 1,920 ml @ 80 mls/hr TPN CONT 03/09/20 22:00 03/10/20 21:59 DC 03/09/20 22:00 80 MLS/HR Sodium Chloride 100 meq/Sodium Phosphate 15 mmol/ Potassium Chloride 50 meq/ Potassium Phosphate 18 mmol/ Magnesium Sulfate 15 meq/Calcium Gluconate 10 meq/ Multivitamins 10 ml/Chromium/ Copper/Manganese/ Seleni/Zn 1 ml/ Total Parenteral Nutrition/Amino Acids/Dextrose/ Fat Emulsion Intravenous 1,920 ml @ 80 mls/hr TPN CONT 03/11/20 22:00 03/12/20 21:59 DC 03/11/20 21:52 80 MLS/HR Sodium Phosphate 15 mmol/Sodium Chloride 255 ml @ 63.75 mls/ hr 1X ONCE 03/11/20 10:00 03/11/20 13:59 DC 03/11/20 12:00 63.75 MLS/HR Succinylcholine Chloride (Anectine) 200 mg STK-MED ONCE 03/05/20 10:23 03/05/20 10:23 DC Tamsulosin HCl (Flomax) 0.4 mg HS 03/02/20 23:45 03/18/20 21:03 0.4 MG Vasopressin 20 unit/Dextrose 101 ml @ 12 mls/hr CONT PRN 03/05/20 20:00 03/17/20 08:30 DC 03/11/20 06:25 12 MLS/HR Vitamin A/Vitamin D (Vitamin A & D Ointment) 1 yury PRN Q1HR PRN 03/17/20 10:15 Allergies: Allergies: Coded Allergies: aspirin (Verified Allergy, Severe, "SWELLING", 03/02/20) Mental Status Examination: Mental Status Examination Pleasant gentleman, appears his stated age, fairly groomed, fairly nourished Cooperative and interactive Alert and oriented Thought processes concrete Denies auditory or visual hallucinations. He is delusional, paranoid Denies suicidal or homicidal thoughts. Mood is anxious Affect is restricted Insight is limited Judgment is fair Impulse control is fair Concentration is fair Recent memory is impaired, remote memory is intact ROS: 14 point review of system is otherwise negative except for abdominal pain, confusion, paranoid delusions. Physical Exam: Refer to Physician's note. 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 MSK: No EPS, TDK, or abnormal involuntary movements Vitals: Vitals Vital Signs Date Time Temp Pulse Resp B/P (MAP) Pulse Ox O2 Delivery O2 Flow Rate FiO2 03/19/20 11:47 95 Room Air 03/19/20 11:00 97.5 98 18 104/66 (79) 97.5 Labs: Labs Laboratory Tests Test 03/18/20 05:30 03/19/20 06:00 Sodium Level 140 mmol/L (136-145) 138 mmol/L (136-145) Potassium Level 4.2 mmol/L (3.5-5.1) 3.9 mmol/L (3.5-5.1) Chloride Level 107 mmol/L (98-107) 106 mmol/L (98-107) Carbon Dioxide Level 23 mmol/L (21-32) 24 mmol/L (21-32) Anion Gap 10 (6-14) 8 (6-14) Blood Urea Nitrogen 14 mg/dL (8-26) 10 mg/dL (8-26) Creatinine 0.4 mg/dL (0.7-1.3) 0.5 mg/dL (0.7-1.3) Estimated GFR (Cockcroft-Gault) 212.1 163.9 Glucose Level 106 mg/dL (70-99) 85 mg/dL (70-99) Calcium Level 7.2 mg/dL (8.5-10.1) 7.1 mg/dL (8.5-10.1) White Blood Count 7.6 x10^3/uL (4.0-11.0) Red Blood Count 3.21 x10^6/uL (4.30-5.70) Hemoglobin 8.6 g/dL (13.0-17.5) Hematocrit 26.0 % (39.0-53.0) Mean Corpuscular Volume 81 fL (79-100) Mean Corpuscular Hemoglobin 27 pg (25-35) Mean Corpuscular Hemoglobin Concent 33 g/dL (31-37) Red Cell Distribution Width 27.2 % (11.5-14.5) Platelet Count 374 x10^3/uL (140-400) Neutrophils (%) (Auto) 84 % (31-73) Lymphocytes (%) (Auto) 7 % (24-48) Monocytes (%) (Auto) 8 % (0-9) Eosinophils (%) (Auto) 1 % (0-3) Basophils (%) (Auto) 0 % (0-3) Neutrophils # (Auto) 6.4 x10^3/uL (1.8-7.7) Lymphocytes # (Auto) 0.5 x10^3/uL (1.0-4.8) Monocytes # (Auto) 0.6 x10^3/uL (0.0-1.1) Eosinophils # (Auto) 0.1 x10^3/uL (0.0-0.7) Basophils # (Auto) 0.0 x10^3/uL (0.0-0.2) BUN/Creatinine Ratio 20 (6-20) Total Bilirubin 0.3 mg/dL (0.2-1.0) Aspartate Amino Transf (AST/SGOT) 23 U/L (15-37) Alanine Aminotransferase (ALT/SGPT) 26 U/L (16-63) Alkaline Phosphatase 524 U/L (46-116) Total Protein 4.4 g/dL (6.4-8.2) Albumin 1.3 g/dL (3.4-5.0) Albumin/Globulin Ratio 0.4 (1.0-1.7) Laboratory Tests Test 03/19/20 06:00 White Blood Count 7.6 x10^3/uL (4.0-11.0) Red Blood Count 3.21 x10^6/uL (4.30-5.70) Hemoglobin 8.6 g/dL (13.0-17.5) Hematocrit 26.0 % (39.0-53.0) Mean Corpuscular Volume 81 fL (79-100) Mean Corpuscular Hemoglobin 27 pg (25-35) Mean Corpuscular Hemoglobin Concent 33 g/dL (31-37) Red Cell Distribution Width 27.2 % (11.5-14.5) Platelet Count 374 x10^3/uL (140-400) Neutrophils (%) (Auto) 84 % (31-73) Lymphocytes (%) (Auto) 7 % (24-48) Monocytes (%) (Auto) 8 % (0-9) Eosinophils (%) (Auto) 1 % (0-3) Basophils (%) (Auto) 0 % (0-3) Neutrophils # (Auto) 6.4 x10^3/uL (1.8-7.7) Lymphocytes # (Auto) 0.5 x10^3/uL (1.0-4.8) Monocytes # (Auto) 0.6 x10^3/uL (0.0-1.1) Eosinophils # (Auto) 0.1 x10^3/uL (0.0-0.7) Basophils # (Auto) 0.0 x10^3/uL (0.0-0.2) Sodium Level 138 mmol/L (136-145) Potassium Level 3.9 mmol/L (3.5-5.1) Chloride Level 106 mmol/L (98-107) Carbon Dioxide Level 24 mmol/L (21-32) Anion Gap 8 (6-14) Blood Urea Nitrogen 10 mg/dL (8-26) Creatinine 0.5 mg/dL (0.7-1.3) Estimated GFR (Cockcroft-Gault) 163.9 BUN/Creatinine Ratio 20 (6-20) Glucose Level 85 mg/dL (70-99) Calcium Level 7.1 mg/dL (8.5-10.1) Total Bilirubin 0.3 mg/dL (0.2-1.0) Aspartate Amino Transf (AST/SGOT) 23 U/L (15-37) Alanine Aminotransferase (ALT/SGPT) 26 U/L (16-63) Alkaline Phosphatase 524 U/L (46-116) Total Protein 4.4 g/dL (6.4-8.2) Albumin 1.3 g/dL (3.4-5.0) Albumin/Globulin Ratio 0.4 (1.0-1.7) Diagnosis: Diagnosis: 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 Rule out major neurocognitive disorder. Assessment: He is a pleasant gentleman who is a S/P surgical intervention for his disseminated colon cancer appears psychotic. Presumably, psychosis is related to underlying vascular changes of white matter evident on CT scan. Additionally, complicated by anesthesia, and drugs. Given patient's psychosis, his vulnerability for delirium it is prudent to add antipsychotic like risperidone 1 mg at bedtime. Plan: 1risperidone 1 mg nightly for psychosis. 2applied delirium protocol, including bright sunlight, avoid sundowning during the day. Avoid daytime naps. 3risk, benefits, alternatives of the treatment are discussed. He is in agreement with plan and voiced understanding. 4, adverse drug reaction including but not limited to risk of sudden , black box warning, weight gain, EPS, tardive dyskinesia are discussed. Once stable risperidone can be discontinued. 5monitor for symptomatology, safety, and excessive sedation and adverse drug reaction. Will titrate medication accordingly. 6thank you for involving inpatient care. DAVID MAURICIO MD Mar 19, 2020 17:07
[2020-03-19 19:07] VITALS: BP 110/72
[2020-03-19] MEDS: risperiDONE 1 MG TABLET. PO SCH (21:40)
[2020-03-19] MEDS: TAMSULOSIN 0.4 MG CAP.ER.24H. PO SCH (21:41)
[2020-03-19 22:00] VITALS: BP 102/65
[2020-03-19] MEDS ORDERED: TOTAL PARENTERAL NUTRITION IV SCH (22:00)
[2020-03-19] MEDS ORDERED: DEXTROSE 70% IV SCH (22:00)
[2020-03-19] MEDS ORDERED: [UNRECOGNIZED DRUG - OTHER] IV SCH (22:00)
[2020-03-19] MEDS ORDERED: AMINO ACID IV SCH (22:00)
[2020-03-19] MEDS ORDERED: HYDROcodone/APAP 5/325MG 1 TAB TABLET PO PRN (22:45)
[2020-03-20 03:32] VITALS: BP 97/58
[2020-03-20 07:00] VITALS: BP 106/68
[2020-03-20] MEDS: PANTOPRAZOLE 40 MG TABLET.DR. PO SCH (08:49)
[2020-03-20] MEDS: ENOXAPARIN 40 MG/0.4 ML SYRINGE. SQ SCH (08:49)
[2020-03-20] MEDS: METOPROLOL TART IMMED RELEASE 25 MG TABLET. PO SCH ×2 (08:50→21:16)
[2020-03-20] MEDS: NYSTATIN 100,000 UNIT/GM TOPICAL CREAM 15GM TUBE. TP SCH ×2 (08:50→21:16)
[2020-03-20] MEDS: IPRATROPIUM BROMIDE 0.5 MG/2.5 ML NEBU. NEB SCH ×3 (09:00→19:18)
--- NOTE | 2020-03-20 09:12 | PDOC ---
PULMONARY PROGRESS NOTES Subjective Patient extubated 03/15 Patient advancing diet no chest pain no nausea Vitals Vital Signs Date Time Temp Pulse Resp B/P (MAP) Pulse Ox O2 Delivery O2 Flow Rate FiO2 03/20/20 08:50 95 106/68 03/20/20 07:00 97.9 18 99 Room Air 97.9 ROS: No Nausea, No Chest Pain, No Increase Cough General: Alert HEENT: Other (nc at perrl nose thrat clear neck no lad no thyromegaly) Lungs: Clear Cardiovascular: S1, S2, Other Abdomen: Soft, Other (Dressing in place, jace drain ) Neuro Exam: Alert Extremities: No Edema Skin: Warm Labs Laboratory Tests Test 03/19/20 06:00 White Blood Count 7.6 x10^3/uL (4.0-11.0) Red Blood Count 3.21 x10^6/uL (4.30-5.70) Hemoglobin 8.6 g/dL (13.0-17.5) Hematocrit 26.0 % (39.0-53.0) Mean Corpuscular Volume 81 fL (79-100) Mean Corpuscular Hemoglobin 27 pg (25-35) Mean Corpuscular Hemoglobin Concent 33 g/dL (31-37) Red Cell Distribution Width 27.2 % (11.5-14.5) Platelet Count 374 x10^3/uL (140-400) Neutrophils (%) (Auto) 84 % (31-73) Lymphocytes (%) (Auto) 7 % (24-48) Monocytes (%) (Auto) 8 % (0-9) Eosinophils (%) (Auto) 1 % (0-3) Basophils (%) (Auto) 0 % (0-3) Neutrophils # (Auto) 6.4 x10^3/uL (1.8-7.7) Lymphocytes # (Auto) 0.5 x10^3/uL (1.0-4.8) Monocytes # (Auto) 0.6 x10^3/uL (0.0-1.1) Eosinophils # (Auto) 0.1 x10^3/uL (0.0-0.7) Basophils # (Auto) 0.0 x10^3/uL (0.0-0.2) Sodium Level 138 mmol/L (136-145) Potassium Level 3.9 mmol/L (3.5-5.1) Chloride Level 106 mmol/L (98-107) Carbon Dioxide Level 24 mmol/L (21-32) Anion Gap 8 (6-14) Blood Urea Nitrogen 10 mg/dL (8-26) Creatinine 0.5 mg/dL (0.7-1.3) Estimated GFR (Cockcroft-Gault) 163.9 BUN/Creatinine Ratio 20 (6-20) Glucose Level 85 mg/dL (70-99) Calcium Level 7.1 mg/dL (8.5-10.1) Total Bilirubin 0.3 mg/dL (0.2-1.0) Aspartate Amino Transf (AST/SGOT) 23 U/L (15-37) Alanine Aminotransferase (ALT/SGPT) 26 U/L (16-63) Alkaline Phosphatase 524 U/L (46-116) Total Protein 4.4 g/dL (6.4-8.2) Albumin 1.3 g/dL (3.4-5.0) Albumin/Globulin Ratio 0.4 (1.0-1.7) Medications Active Scripts Medications Dose Route/Sig Max Daily Dose Days Date Category Flomax (Tamsulosin Hcl) 0.4 Mg Cap.er.24h 1 Cap PO QHS 03/02/20 Reported Comments CXR reviewed IMPRESSION: 1. Stable left basilar opacities and small left pleural effusion. Impression . IMPRESSION: 1. Acute hypoxemic respiratory failure, expected status post surgical intervention for colonic mass. Status post extubation 03/15 on ra 2. Obstructing colonic cancer. 3. History of prostate cancer. 4. Severe protein malnutrition present upon admission. 5. Tobacco dependent. 6. Chronic obstructive pulmonary disease. 7. SARS-CoV-2 negative. 8. Cholelithiasis. 9. Hyponatremia. 10. Protein malnutrition, present upon admission. 11. Benign prostatic hypertrophy. 12. S/p open right colon resection, partial resection of duodenum, placement of duodenostomy tube, cholecystectomy, ghost ileostomy 13. Acute blood loss anemia 14. Respiratory alkalosis 15. Hypocalcemia-- correct calcium WNL 16. 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 - Lymphovascular tumor invasion present. - Metastatic carcinoma involving 1 of 14 mesocolic lymph nodes. - Tumor involvement of radial margin of posterior aspect of cecum and proximal ascending colon. - Proximal (distal ileum) and distal (ascending colon) margins of resection negative for tumor. - Hypertrophy of muscular wall of appendix with focal serosal lymphovascular tumor invasion of proximal appendix. - Omentum negative for tumor. - Serosal adhesions of colon and appendix, focal. . B. Gallbladder, open cholecystectomy: - Polypoid cholesterolosis. - Chronic cholecystitis. . C. Tissue designated "right upper quadrant": - Segments of tumor showing invasive colorectal adenocarcinoma with prominent mucinous component, moderately differentiated. . (JPM:kaila; 03/07/2020) . Surgical Pathology Cancer Case Summary Protocol posting date: February 2017 COLON AND RECTUM: Resection, Including Transanal Disk Excision of Rectal Neoplasms Procedure ___ Right colectomy Tumor Site ___ Cecum ___ Ileocecal valve ___ Right (ascending) colon Tumor Size Greatest dimension: 12.5 cm Macroscopic Tumor Perforation ___ Present Histologic Type ___ Adenocarcinoma with prominent mucinous component and with focal poorly differentiated areas Histologic Grade ___ Other: Moderately to focally poorly differentiated Tumor Extension ___ Tumor invades through the muscularis propria into pericolorectal tissue Margins Proximal Margin ___ Uninvolved by invasive carcinoma + Distance of tumor from margin: 5.4 cm Distal Margin ___ Uninvolved by invasive carcinoma + Distance of tumor from margin: 11.2 cm ___ Involved by invasive carcinoma Radial or Mesenteric Margin ___ Involved by invasive carcinoma Lymphovascular Invasion ___ Present Perineural Invasion ___ Not identified + Type of Polyp in Which Invasive Carcinoma Arose + ___ Tubulovillous adenoma Tumor Deposits ___ Not identified Regional Lymph Nodes Number of Lymph Nodes Involved: 1 Number of Lymph Nodes Examined: 14 Pathologic Stage Classification (pTNM, AJCC 8th Edition) (Note M) Primary Tumor (pT) ___ pT4b: Tumor directly invades or adheres to adjacent organs or structures Regional Lymph Nodes (pN) ___ pN1: One to three regional lymph nodes are positive (tumor in lymph nodes measuring > or = 0.2 mm), or any number of tumor deposits are present and all identifiable lymph nodes are negative + Additional Pathologic Findings + ___ None identified (JPM:ady 03/08/2020) MBR 03/08/2020 0951 Local Plan . Discharge planning in place Respiratory status compensated continue the same Advance diet DOTTIE WILBURN MD Mar 20, 2020 09:12
--- NOTE | 2020-03-20 09:32 | NUR ---
SS following up with discharge planning. SS reviewed pt chart and discussed with pt RN. Pt accepted at [facility], ; fax [phone]. Pt currently on room air and TPN. Pt has three drains. Surgery stating pt is not ready for transfer today. SS was notified that plan is to remove one drain today and advance diet to soft food diet. SS will continue to follow for discharge planning.
--- NOTE | 2020-03-20 09:47 | PDOC ---
Subjective: Subjective: Wants to know why people keep asking him if he has pain because he never does. No nausea either. Doesn't like full liquid diet but trying to eat it. 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 Risperidone added. Stools charted. Vital Signs: Vital Signs Date Time Temp Pulse Resp B/P (MAP) Pulse Ox O2 Delivery O2 Flow Rate FiO2 03/20/20 08:50 95 106/68 03/20/20 07:32 Room Air 03/20/20 07:00 97.9 18 99 97.9 PE: GEN: NAD, eating hot cereal LUNGS: CTAB HEART: RRR ABD: soft NEURO/PSYCH: A & O 3 A/P: Colon cancer s/p resection -- Diet per surgery. Justicifation of Admission Dx: Justifications for Admission: Justification of Admission Dx: Yes LONG RIOS Mar 20, 2020 09:47
--- NOTE | 2020-03-20 09:47 | PDOC ---
SURGICAL PROGRESS NOTE Subjective low appetite, no n./v pain managed Vital Signs Vital Signs Date Time Temp Pulse Resp B/P (MAP) Pulse Ox O2 Delivery O2 Flow Rate FiO2 03/20/20 08:50 95 106/68 03/20/20 07:32 Room Air 03/20/20 07:00 97.9 18 99 97.9 I&O Intake and Output 03/20/20 07:00 Intake Total 0 ml Output Total 5175 ml Balance -5175 ml Intake Oral 0 ml Output Urine Total 4875 ml Drainage Total 300 ml # Bowel Movements 1 General: Alert, Oriented X3, Cooperative Abdomen: Soft, Other (jace serous, ghost and nicole in place) Labs Laboratory Tests Test 03/19/20 06:00 White Blood Count 7.6 x10^3/uL (4.0-11.0) Red Blood Count 3.21 x10^6/uL (4.30-5.70) Hemoglobin 8.6 g/dL (13.0-17.5) Hematocrit 26.0 % (39.0-53.0) Mean Corpuscular Volume 81 fL (79-100) Mean Corpuscular Hemoglobin 27 pg (25-35) Mean Corpuscular Hemoglobin Concent 33 g/dL (31-37) Red Cell Distribution Width 27.2 % (11.5-14.5) Platelet Count 374 x10^3/uL (140-400) Neutrophils (%) (Auto) 84 % (31-73) Lymphocytes (%) (Auto) 7 % (24-48) Monocytes (%) (Auto) 8 % (0-9) Eosinophils (%) (Auto) 1 % (0-3) Basophils (%) (Auto) 0 % (0-3) Neutrophils # (Auto) 6.4 x10^3/uL (1.8-7.7) Lymphocytes # (Auto) 0.5 x10^3/uL (1.0-4.8) Monocytes # (Auto) 0.6 x10^3/uL (0.0-1.1) Eosinophils # (Auto) 0.1 x10^3/uL (0.0-0.7) Basophils # (Auto) 0.0 x10^3/uL (0.0-0.2) Sodium Level 138 mmol/L (136-145) Potassium Level 3.9 mmol/L (3.5-5.1) Chloride Level 106 mmol/L (98-107) Carbon Dioxide Level 24 mmol/L (21-32) Anion Gap 8 (6-14) Blood Urea Nitrogen 10 mg/dL (8-26) Creatinine 0.5 mg/dL (0.7-1.3) Estimated GFR (Cockcroft-Gault) 163.9 BUN/Creatinine Ratio 20 (6-20) Glucose Level 85 mg/dL (70-99) Calcium Level 7.1 mg/dL (8.5-10.1) Total Bilirubin 0.3 mg/dL (0.2-1.0) Aspartate Amino Transf (AST/SGOT) 23 U/L (15-37) Alanine Aminotransferase (ALT/SGPT) 26 U/L (16-63) Alkaline Phosphatase 524 U/L (46-116) Total Protein 4.4 g/dL (6.4-8.2) Albumin 1.3 g/dL (3.4-5.0) Albumin/Globulin Ratio 0.4 (1.0-1.7) Problem List Problems Medical Problems: (1) Anemia Status: Acute (2) Colonic mass Status: Acute (3) Fatigue Status: Acute (4) Hypocalcemia Status: Acute (5) Nausea & vomiting Status: Acute (6) SBO (small bowel obstruction) Status: Acute Assessment/Plan advance diet dc nicole drain dc planning Justicifation of Admission Dx: Justifications for Admission: Justification of Admission Dx: Yes ISAAC LUEVANO MUNICIPAL CLERK Mar 20, 2020 09:47
[2020-03-20] MEDS: TPN PER PHARMACY MC PRN ×2 (09:52→09:54)
--- NOTE | 2020-03-20 10:00 | NUR ---
Pharmacy TPN Dosing Note S: FABIANO HELLER is a 69 year old M Currently receiving Central Continuous TPN started 03/08/20 B:Pertinent PMH: NPO/SBO Height: 6 feet, 3 inches Weight: 85.5 kg Current diet: gi soft LABS: Sodium: 138 Potassium: 3.9 Chloride: 106 Calcium: 7.1 Corrected Calcium: 9.26 Magnesium: 2.1 CO2: 24 SCr: 0.5 Glucose: 85 Albumin: 1.3 AST: 23 ALT: 26 TPN FORMULA: TPN TYPE: Central Continuous AMINO ACIDS: 80 gm DEXTROSE: 250 gm LIPIDS: 20 gm SODIUM CHLORIDE: 80 mEq SODIUM ACETATE: - mEq SODIUM PHOSPHATE: 15 mmol POTASSIUM CHLORIDE: 50 mEq POTASSIUM ACETATE: - mEq POTASSIUM PHOSPHATE: 15 mmol MAGNESIUM: 15 mEq CALCIUM: 10 mEq INSULIN: - units MULTIPLE VITAMIN: 10 ml TRACE ELEMENTS: 1 ml ml(s) TPN PLAN: No labs today. No change to TPN. Per Tiffanie AJ, pt not having much intake of full liquids but changing to GI soft today and she thinks he will find it more appetizing, surgery will likely DC TPN within 24 h. R: Continue TPN ABOVE Will monitor electrolytes, glucose, and tolerance to TPN. RAI CESAR, [facility], 03/20/20 1000
[2020-03-20 11:00] VITALS: BP 101/63
--- NOTE | 2020-03-20 12:53 | PDOC ---
DELANO MORAES RN CARDIOLOGY 03/20/20 1253: CARDIO Progress Notes Date and Time Date of Service 03/20/20 Time of Evaluation 1250 Subjective Subjective: No Chest Pain, No shortness of breath, Other (extubated) Vitals Vitals Vital Signs Date Time Temp Pulse Resp B/P (MAP) Pulse Ox O2 Delivery O2 Flow Rate FiO2 03/20/20 11:59 98 Room Air 03/20/20 11:00 98.0 94 18 101/63 (76) 98.0 Weight Weight [ ] Input and Output Intake and Output Intake and Output 03/20/20 07:00 Intake Total 0 ml Output Total 5175 ml Balance -5175 ml Intake Oral 0 ml Output Urine Total 4875 ml Drainage Total 300 ml # Bowel Movements 1 Microbiology Micro Microbiology 03/02/20 Urine Culture - Final, Complete Review of Systems Constitutional: yes: weakness, alert, oriented Ears/Nose/Throat: Yes: no symptom reported Eyes: Yes: no symptom reported Pulmonary: Yes no symptom reported Cardiovascular: Yes edema Gastrointestional: Yes: no symptom reported Genitourinary: Yes: no symptom reported Musculoskeletal: Yes: no symptom reported Skin: Yes no symptom reported Psychiatric/Neurological: Yes: no symptom reported Endocrine: Yes: no symptom reported Physical Exam HEENT: Neck Supple W Full Motion Chest: Symmetric LUNGS: Other (diminished bases ) Heart: RRR (SR) Abdomen: Other (soft ) Extremities: Other (anasarca ) Neurology: alert, follow commands, confused Assessment Assessment 1. Obstructive colonic mass; s/p open colon resection, cholecystectomy. Path c/w metastatic adenocarcinoma 2. Acute respiratory failure, post-operative. S/p extubation this am 3. Arrhythmia; PSVT, reactive tachycardia. Echo with preserved LV systolic function 4. Acute blood loss anemia, s/p transfusion. Hgb stable 5. Hypertension; low normotensive 6. Hypocalcemia 7. Protein calorie malnutrition, anasarca; on TPN 8. H/o prostate CA, BPH 9. Tobaccoism Recommendations Continue low-dose metoprolol for rate control Diet advancement PT/OT Okay to transfer to LTAC from a CV standpoint Justicifation of Admission Dx: Justifications for Admission: Justification of Admission Dx: Yes JAMMIE HARDING MD 03/20/20 1704: CARDIO Progress Notes Plan Plan Pt. seen and examined. Agree with above [employer] note. No new CV issues. HR stable. Supportive care. thanks DELANO MORAES APRN Mar 20, 2020 12:53 JAMMIE HARDING MD Mar 20, 2020 17:04
--- NOTE | 2020-03-20 13:17 | PDOC ---
PROGRESS NOTES Chief Complaint Chief Complaint A/P: Acute respiratory failure, post-operative. S/p intubation. ? PNA Small bowel dilatation/obstruction suspicious for primary colon cancer 10.5cm mass with surrounding lymph nodes concerning for metastatic disease 10.5 cm colonic mass. Colonic mass abuts the right hepatic lobe inferior margin as well as the duodenum and anterior right kidney (extending through or deforming Gerota's fascia), suspicious for primary colon cancer. Prominent associated lymph nodes are seen, possibly metastatic Obstructing right colon cancer Dialated Appendix fatty liver dz Gallstones Microcytic Anemia Alkaline Phosphatemia Hyponatremia Mild Leukocytosis Tachycardia H/o prostate cancer in remission Severe protein calorie malnutrition LE edema - BNP of 350, no cardiac history and no symptoms of CHF. This is unlikely to be cardiac related at all. Likely likely lymphatic obstruction due to abdominal mass. Hyponatremia - likely due to poor PO intake, SERUM OSMOLALITY PENDING HYPOTENSION, POSSIBLE SEPSIS SVT - Arrhythmia; Brief period of SVT. Otherwise, has been maintaining SR/ST Acute blood loss anemia, s/p transfusion Hypocalcemia Acute encephalopathy History of Present Illness History of Present Illness Mr Claudio is a 69 yo CM hx of prostate cancer s/p radiation, HTN, prediabetes now off meds who presents with vomiting fatigue diarrhea weight loss and decreased appetite for 1 month. He went to see his PCP because over the past week he had sudden onset lower extremity edema, patient had labs drawn as outpatient and called by PCP to go to the hospital for a blood transfusion and treatment for CHF. No history of CHF. On ROS he just notes his bones feel heavy. He also notes over the past 2 months sometimes he will choke on food and vomited up. His last bowel movement was 2 days ago and it was diarrhea. He has not been able to eat very well. He just feels tired. He stopped smoking over 25 years ago and he only did smoke cigars at that time. With regard to his prostate cancer he states that he had 43 radiation treatments and had a PET scan at the end of 2019 and was told he is in remission. He has never had a colonoscopy. in ED patient found to have hb of 9.8. na 130. noted to be tachy with HR 110. Patient lives with 101 year old mom. His mother has history of stage III colon cancer diagnosed at age 76. His brother has history of prostate cancer, father of lung cancer. 03/05: To OR for open right colon resection with partial duodenal resection, duodenostomy tube, cholecystectomy w/ cholangiogram and ghost ileostomy. Returned to ICU on ventilator. Pulm consulted 03/12: SVT - cardiology consulted, resolved without intervention 03/13. off pressors, vitals better, weaning sedation and weaning vent 03/14: Failed vent wean. He is obviously confused, but attempting to self extubate with mittens on . Labs improved. AC mode with rate of 12, 500cc/40% FiO2/ PEEP of 5. 03/15: Afebrile. Hb 8.7 hypotensive overnight. Vent on AC mode on wean ABG 7.36/40 4/133 on PEEP 5 FiO2 40%, extubated with me present not speaking but nodding somewhat appropriately to questions. Appears comfortable 03/16: On O2. Still on TPN, multiple BM yesterday and overnight. He is a bit confused. Legs much more swollen. Labs stable. 03/17: Diuresis of 4 L after Lasix and albumin yesterday. Afebrile overnight very tachycardic in the 160s overnight given metoprolol. BP low now, HR in 90s, labs actually appear stable. He is still very weak and a bit more clear headed, though confused on timeline. 03/18: Less tachy overnight, required digoxin for rate control in addition to metoprolol due to low blood pressure. Afebrile. No CP or SOB. Still thinks he has been in here 5 weeks and still is convinced he had colon cancer surgery and then a cardiac surgery. 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 Says but then all of a sudden he woke up and I am right here and I am "Tripp Claudio". When asked if he wants to speak to a psychiatrist about this he asked for our little [id number] to remain between us. CT head with white matter changes consistent with aging, no acute infarcts. Plan: Cont CVC Psych consult [facility] for discharge planning when more stable nicole drain dc advance diet per sx Vitals Vitals Vital Signs Date Time Temp Pulse Resp B/P (MAP) Pulse Ox O2 Delivery O2 Flow Rate FiO2 7/14/20 11:59 98 Room Air 03/20/20 11:00 98.0 94 18 101/63 (76) 98.0 Physical Exam General: Alert, Oriented X3, Cooperative Heart: Regular rate (ST) Lungs: Clear Abdomen: Soft, Other (jace serous, ghost and nicole in place) Extremities: Other (2+ bilateral LE pitting edema, anasarca ) Skin: No significant lesion Assessment and Plan Assessmemt and Plan Problems Medical Problems: (1) Anemia Status: Acute (2) Colonic mass Status: Acute (3) Fatigue Status: Acute (4) Hypocalcemia Status: Acute (5) Nausea & vomiting Status: Acute (6) SBO (small bowel obstruction) Status: Acute Comment Review of Relevant I have reviewed the following items radhames (where applicable) has been applied. Labs Laboratory Tests Test 03/19/20 06:00 White Blood Count 7.6 x10^3/uL (4.0-11.0) Red Blood Count 3.21 x10^6/uL (4.30-5.70) Hemoglobin 8.6 g/dL (13.0-17.5) Hematocrit 26.0 % (39.0-53.0) Mean Corpuscular Volume 81 fL (79-100) Mean Corpuscular Hemoglobin 27 pg (25-35) Mean Corpuscular Hemoglobin Concent 33 g/dL (31-37) Red Cell Distribution Width 27.2 % (11.5-14.5) Platelet Count 374 x10^3/uL (140-400) Neutrophils (%) (Auto) 84 % (31-73) Lymphocytes (%) (Auto) 7 % (24-48) Monocytes (%) (Auto) 8 % (0-9) Eosinophils (%) (Auto) 1 % (0-3) Basophils (%) (Auto) 0 % (0-3) Neutrophils # (Auto) 6.4 x10^3/uL (1.8-7.7) Lymphocytes # (Auto) 0.5 x10^3/uL (1.0-4.8) Monocytes # (Auto) 0.6 x10^3/uL (0.0-1.1) Eosinophils # (Auto) 0.1 x10^3/uL (0.0-0.7) Basophils # (Auto) 0.0 x10^3/uL (0.0-0.2) Sodium Level 138 mmol/L (136-145) Potassium Level 3.9 mmol/L (3.5-5.1) Chloride Level 106 mmol/L (98-107) Carbon Dioxide Level 24 mmol/L (21-32) Anion Gap 8 (6-14) Blood Urea Nitrogen 10 mg/dL (8-26) Creatinine 0.5 mg/dL (0.7-1.3) Estimated GFR (Cockcroft-Gault) 163.9 BUN/Creatinine Ratio 20 (6-20) Glucose Level 85 mg/dL (70-99) Calcium Level 7.1 mg/dL (8.5-10.1) Total Bilirubin 0.3 mg/dL (0.2-1.0) Aspartate Amino Transf (AST/SGOT) 23 U/L (15-37) Alanine Aminotransferase (ALT/SGPT) 26 U/L (16-63) Alkaline Phosphatase 524 U/L (46-116) Total Protein 4.4 g/dL (6.4-8.2) Albumin 1.3 g/dL (3.4-5.0) Albumin/Globulin Ratio 0.4 (1.0-1.7) Microbiology 03/02/20 Urine Culture - Final, Complete Medications Current Medications Sodium Chloride 1,000 ml @ 1,000 mls/hr 1X ONCE IV Last administered on 03/02/20at 17:05; Start 03/02/20 at 16:45; Stop 03/02/20 at 17:44; Status DC Calcium Gluconate (Calcium Gluconate) 1,000 mg 1X ONCE IVP Last administered on 03/02/20at 18:21; Start 03/02/20 at 18:15; Stop 03/02/20 at 18:18; Status DC Iohexol (Omnipaque 300 Mg/ml) 75 ml 1X ONCE IV Last administered on 03/02/20at 18:34; Start 03/02/20 at 18:30; Stop 03/02/20 at 18:31; Status DC Pantoprazole Sodium (PROTONIX VIAL for IV PUSH) 40 mg 1X ONCE IVP Last administered on 03/02/20at 18:41; Start 03/02/20 at 18:45; Stop 03/02/20 at 18:46; Status DC Sodium Chloride 1,000 ml @ 100 mls/hr 1X ONCE IV Last administered on 03/02/20at 19:04; Start 03/02/20 at 18:45; Stop 03/03/20 at 04:44; Status DC Enoxaparin Sodium (Lovenox Per Pharmacy Prophylaxis Dosing) 1 each PRN DAILY PRN MC SEE COMMENTS; Start 03/02/20 at 20:30; Status Cancel Enoxaparin Sodium (Lovenox 40mg Syringe) 40 mg Q24H SQ Last administered on 03/02/20at 23:48; Start 03/02/20 at 21:00; Stop 03/03/20 at 08:48; Status DC Tamsulosin HCl (Flomax) 0.4 mg HS PO Last administered on 03/19/20at 21:41; Start 03/02/20 at 23:45 Sodium Chloride 1,000 ml @ 100 mls/hr Q10H IV Last administered on 03/03/20at 11:07; Start 03/03/20 at 10:00; Stop 03/03/20 at 14:58; Status DC Ondansetron HCl (Zofran) 4 mg PRN Q4HRS PRN IV NAUSEA/VOMITING Last administered on 03/04/20at 22:31; Start 03/03/20 at 09:45; Stop 03/05/20 at 16:15; Status DC Acetaminophen (Tylenol Supp) 650 mg PRN Q4HRS PRN SD TEMP OVER 100.4F OR MILD PAIN; Start 03/03/20 at 09:45 Polyethylene Glycol (miraLAX PACKET) 17 gm DAILY PO Last administered on 03/04/20at 09:21; Start 03/03/20 at 10:00; Stop 03/06/20 at 10:25; Status DC Bisacodyl (Dulcolax Supp) 10 mg PRN DAILY PRN SD CONSTIPATION; Start 03/03/20 at 09:45; Stop 03/06/20 at 10:25; Status DC Bisacodyl (Dulcolax Tab) 10 mg PRN DAILY PRN PO CONSTIPATION Last administered on 03/03/20at 13:47; Start 03/03/20 at 09:45; Stop 03/06/20 at 10:25; Status DC Psyllium Hydrophilic Mucilloid (Metamucil Fiber Packet) 1 pkt QHS PO Last administered on 03/04/20at 21:03; Start 03/03/20 at 21:00; Stop 03/06/20 at 10:25; Status DC Polyethylene Glycol (miraLAX PACKET) 17 gm QHS PO Last administered on 03/04/20at 21:03; Start 03/03/20 at 21:00; Stop 03/06/20 at 10:25; Status DC Docusate Sodium (Colace) 100 mg DAILY PO Last administered on 03/04/20at 09:21; Start 03/03/20 at 12:00; Stop 03/06/20 at 10:25; Status DC Amino Acids/ Glycerin/ Electrolytes 1,000 ml @ 80 mls/hr [id number] IV Last administered on 03/07/20at 02:41; Start 03/03/20 at 15:00; Stop 03/07/20 at 13:22; Status DC Furosemide (Lasix) 40 mg 1X ONCE IVP Last administered on 03/03/20at 16:48; Start 03/03/20 at 15:00; Stop 03/03/20 at 15:01; Status DC Iohexol (Omnipaque 300 Mg/ml) 75 ml 1X ONCE IV Last administered on 03/03/20at 16:33; Start 03/03/20 at 16:15; Stop 03/03/20 at 16:16; Status DC Info (CONTRAST GIVEN -- Rx MONITORING) 1 each PRN DAILY PRN MC SEE COMMENTS; Start 03/03/20 at 16:15; Stop 03/05/20 at 16:15; Status DC Bisacodyl (Dulcolax Supp) 10 mg 1X ONCE SD Last administered on 03/04/20at 12:18; Start 03/04/20 at 10:00; Stop 03/04/20 at 10:05; Status DC Cefoxitin Sodium (Mefoxin) 2 gm 1X PREOP IVP Last administered on 03/05/20at 13:09; Start 03/05/20 at 10:00; Stop 03/08/20 at 11:05; Status DC Lidocaine (Lidoderm) 1 patch DAILY TD ; Start 03/04/20 at 16:30; Status Cancel Miscellaneous (Lidoderm Patch Removal) 1 ea QHS MC ; Start 03/04/20 at 21:00; Status Cancel Ondansetron HCl (Zofran) 4 mg PRN Q6HRS PRN IVP NAUSEA/VOMITING; Start 03/05/20 at 07:15; Stop 03/05/20 at 20:00; Status DC Fentanyl Citrate (Fentanyl 2ml Vial) 25 mcg PRN Q5MIN PRN IVP MILD PAIN 1-3; Start 03/05/20 at 07:15; Stop 03/05/20 at 20:00; Status DC Fentanyl Citrate (Fentanyl 2ml Vial) 50 mcg PRN Q5MIN PRN IVP MODERATE TO SEVERE PAIN; Start 03/05/20 at 07:15; Stop 03/05/20 at 20:00; Status DC Morphine Sulfate (Morphine Sulfate) 1 mg PRN Q10MIN PRN IVP SEVERE PAIN 7-10; Start 03/05/20 at 07:15; Stop 03/05/20 at 20:00; Status DC Ringer's Solution 1,000 ml @ 30 mls/hr Q24H IV Last administered on 03/05/20at 09:59; Start 03/05/20 at 07:05; Stop 03/05/20 at 19:04; Status DC Lidocaine HCl (Xylocaine-Mpf 1% 2ml Vial) 2 ml 1X PRN PRN ID IV START; Start 03/05/20 at 07:15; Stop 03/05/20 at 20:00; Status DC Hydromorphone HCl (Dilaudid) 0.5 mg PRN Q10MIN PRN IVP SEV PAIN, Second choice; Start 03/05/20 at 07:15; Stop 03/05/20 at 20:00; Status DC Prochlorperazine Edisylate (Compazine) 5 mg PACU PRN PRN IVP NAUSEA, MRX1; Start 03/05/20 at 07:15; Stop 03/06/20 at 07:14; Status DC Pantoprazole Sodium (PROTONIX VIAL for IV PUSH) 40 mg DAILYAC IVP Last administered on 03/19/20at 08:48; Start 03/05/20 at 10:30; Stop 03/19/20 at 10:23; Status DC Propofol (Diprivan) 200 mg STK-MED ONCE IV ; Start 03/05/20 at 10:23; Stop 03/05/20 at 10:23; Status DC Lidocaine HCl (Lidocaine Pf 2% Vial) 5 ml STK-MED ONCE .ROUTE ; Start 03/05/20 at 10:23; Stop 03/05/20 at 10:23; Status DC Ondansetron HCl (Zofran) 4 mg STK-MED ONCE .ROUTE ; Start 03/05/20 at 10:23; Stop 03/05/20 at 10:23; Status DC Dexamethasone Sodium Phosphate (Decadron) 4 mg STK-MED ONCE .ROUTE ; Start 03/05/20 at 10:23; Stop 03/05/20 at 10:23; Status DC Succinylcholine Chloride (Anectine) 200 mg STK-MED ONCE .ROUTE ; Start 03/05/20 at 10:23; Stop 03/05/20 at 10:23; Status DC Rocuronium Stanley (Zemuron) 50 mg STK-MED ONCE .ROUTE ; Start 03/05/20 at 10:24; Stop 03/05/20 at 10:24; Status DC Fentanyl Citrate (Fentanyl 2ml Vial) 100 mcg STK-MED ONCE .ROUTE ; Start 03/05/20 at 10:24; Stop 03/05/20 at 10:24; Status DC Iohexol (Omnipaque 300 Mg/ml) 50 ml STK-MED ONCE .ROUTE Last administered on 03/05/20at 11:43; Start 03/05/20 at 10:41; Stop 03/05/20 at 10:41; Status DC Bupivacaine HCl/ Epinephrine Bitart (Sensorcain-Epi 0.5%-1:[id number] Mpf) 30 ml STK-MED ONCE .ROUTE ; Start 03/05/20 at 10:42; Stop 03/05/20 at 10:42; Status DC Phenylephrine HCl (PHENYLEPHRINE in 0.9% NACL PF) 1 mg STK-MED ONCE IV ; Start 03/05/20 at 12:13; Stop 03/05/20 at 12:14; Status DC Ephedrine Sulfate (ePHEDrine PF IN SALINE SYRINGE) 50 mg STK-MED ONCE IV ; Start 03/05/20 at 12:13; Stop 03/05/20 at 12:14; Status DC Phenylephrine HCl (Devin-Synephrine Inj) 10 mg STK-MED ONCE .ROUTE ; Start 03/05/20 at 12:15; Stop 03/05/20 at 12:15; Status DC Rocuronium Stanley (Zemuron) 50 mg STK-MED ONCE .ROUTE ; Start 03/05/20 at 12:27; Stop 03/05/20 at 12:27; Status DC Cefoxitin Sodium (Mefoxin) 1 gm STK-MED ONCE IVP ; Start 03/05/20 at 12:57; Stop 03/05/20 at 12:57; Status DC Albumin Human 500 ml @ As Directed STK-MED ONCE IV ; Start 03/05/20 at 13:08; Stop 03/05/20 at 13:08; Status DC Albumin Human 500 ml @ As Directed STK-MED ONCE IV ; Start 03/05/20 at 13:13; Stop 03/05/20 at 13:14; Status DC Phenylephrine HCl (Devin-Synephrine Inj) 10 mg STK-MED ONCE .ROUTE ; Start 03/05/20 at 13:35; Stop 03/05/20 at 13:35; Status DC Phenylephrine HCl (Devin-Synephrine Inj) 10 mg STK-MED ONCE .ROUTE ; Start 03/05/20 at 13:48; Stop 03/05/20 at 13:49; Status DC Sevoflurane (Ultane) 90 ml STK-MED ONCE IH ; Start 03/05/20 at 14:30; Stop 03/05/20 at 14:30; Status DC Phenylephrine HCl (Devin-Synephrine Inj) 10 mg STK-MED ONCE .ROUTE ; Start 03/05/20 at 14:35; Stop 03/05/20 at 14:36; Status DC Midazolam HCl 100 mg/Sodium Chloride 100 ml @ 1 mls/hr CONT PRN IV SEE I/O RECORD Last administered on 03/13/20at 19:50; Start 03/05/20 at 15:15; Stop 03/17/20 at 08:30; Status DC Fentanyl Citrate 30 ml @ 2.5 mls/hr CONT PRN PRN IV PER PROTOCOL Last administered on 03/15/20at 02:05; Start 03/05/20 at 15:15; Stop 03/17/20 at 08:30; Status DC Naloxone HCl (Narcan) 0.4 mg PRN Q2MIN PRN IV SEE INSTRUCTIONS; Start 03/05/20 at 15:15; Stop 03/06/20 at 09:45; Status DC Sodium Chloride 1,000 ml @ 25 mls/hr Q24H IV ; Start 03/05/20 at 15:13; Stop 03/06/20 at 14:24; Status DC Norepinephrine Bitartrate 8 mg/ Dextrose 258 ml @ 15.287 mls/ hr CONT PRN IV PER PROTOCOL Last administered on 03/11/20at 18:15; Start 03/05/20 at 15:30; Stop 03/18/20 at 07:52; Status DC Enoxaparin Sodium (Lovenox 40mg Syringe) 40 mg Q24H SQ Last administered on 03/20/20at 08:49; Start 03/06/20 at 08:00 Sodium Chloride (Normal Saline Flush) 3 ml QSHIFT PRN IV AFTER MEDS AND BLOOD DRAWS; Start 03/05/20 at 16:15 Ringer's Solution 1,000 ml @ 100 mls/hr Q10H IV Last administered on 03/08/20at 11:19; Start 03/05/20 at 16:09; Stop 03/08/20 at 18:54; Status DC Naloxone HCl (Narcan) 0.4 mg PRN Q2MIN PRN IV SEE INSTRUCTIONS; Start 03/05/20 at 16:15 Sodium Chloride 1,000 ml @ 25 mls/hr Q24H IV ; Start 03/05/20 at 16:09; Stop 03/06/20 at 14:24; Status DC Morphine Sulfate 30 ml @ 0 mls/hr CONT PRN PRN IV PER PROTOCOL; Start 03/05/20 at 16:15; Stop 03/06/20 at 09:48; Status DC Ondansetron HCl (Zofran) 4 mg PRN Q6HRS PRN IVP NAUESA, 1ST CHOICE; Start 03/05/20 at 16:15 Piperacillin Sod/ Tazobactam Sod 3.375 gm/Sodium Chloride 50 ml @ 100 mls/hr Q6HRS IV Last administered on 03/17/20at 05:58; Start 03/05/20 at 17:00; Stop 03/17/20 at 08:30; Status DC Ringer's Solution 1,000 ml @ 999 mls/hr 1X ONCE IV Last administered on 03/05/20at 20:59; Start 03/05/20 at 20:00; Stop 03/05/20 at 21:00; Status DC Vasopressin 20 unit/Dextrose 101 ml @ 12 mls/hr CONT PRN IV SEE I/O RECORD L ast administered on 03/11/20at 06:25; Start 03/05/20 at 20:00; Stop 03/17/20 at 08:30; Status DC Ringer's Solution 1,000 ml @ 999 mls/hr 1X ONCE IV Last administered on 03/06/20at 01:07; Start 03/06/20 at 01:00; Stop 03/06/20 at 02:00; Status DC Ringer's Solution 1,000 ml @ 999 mls/hr 1X ONCE IV Last administered on 03/06/20at 05:18; Start 03/06/20 at 05:00; Stop 03/06/20 at 06:00; Status DC Ringer's Solution 1,000 ml @ 999 mls/hr 1X ONCE IV Last administered on 03/06/20at 09:54; Start 03/06/20 at 09:45; Stop 03/06/20 at 10:45; Status DC Ringer's Solution 1,000 ml @ 999 mls/hr 1X ONCE IV Last administered on 03/06/20at 13:40; Start 03/06/20 at 13:45; Stop 03/06/20 at 14:45; Status DC Ringer's Solution 1,000 ml @ 999 mls/hr 1X ONCE IV Last administered on 03/06/20at 18:43; Start 03/06/20 at 18:15; Stop 03/06/20 at 19:15; Status DC Sodium Chloride 200 ml @ 50 mls/hr 1X ONCE IV Last administered on 03/07/20at 13:49; Start 03/07/20 at 13:30; Stop 03/07/20 at 17:29; Status DC Potassium Phosphate 13.6 mmol/Sodium Chloride 254.5333 ml @ 62.5 mls/hr Q4H IV Last administered on 03/08/20at 16:52; Start 03/08/20 at 08:30; Stop 03/08/20 at 20:29; Status DC Magnesium Sulfate 50 ml @ 25 mls/hr 1X ONCE IV Last administered on 03/08/20at 08:00; Start 03/08/20 at 08:00; Stop 03/08/20 at 09:59; Status DC Sodium Chloride 300 ml @ 50 mls/hr 1X ONCE IV Last administered on 03/08/20at 08:00; Start 03/08/20 at 08:00; Stop 03/08/20 at 13:59; Status DC Info (Tpn Per Pharmacy) 1 each PRN DAILY PRN MC SEE COMMENTS Last administered on 03/20/20at 09:54; Start 03/08/20 at 11:00 Sodium Chloride 100 meq/Potassium Chloride 50 meq/ Potassium Phosphate 18 mmol/ Magnesium Sulfate 15 meq/Calcium Gluconate 10 meq/ Multivitamins 10 ml/Chromium/ Copper/Manganese/ Seleni/Zn 1 ml/ Total Parenteral Nutrition/Amino Acids/Dextrose/ Fat Emulsion Intravenous 1,512 ml @ 63 mls/hr TPN CONT IV ; Start 03/08/20 at 22:00; Stop 03/08/20 at 11:31; Status DC Sodium Chloride 100 meq/Potassium Chloride 50 meq/ Potassium Phosphate 18 mmol/ Magnesium Sulfate 15 meq/Calcium Gluconate 10 meq/ Multivitamins 10 ml/Chromium/ Copper/Manganese/ Seleni/Zn 1 ml/ Total Parenteral Nutrition/Amino Acids/Dextrose/ Fat Emulsion Intravenous 1,920 ml @ 80 mls/hr TPN CONT IV Last administered on 03/08/20at 23:04; Start 03/08/20 at 22:00; Stop 03/09/20 at 21:59; Status DC Potassium Chloride/Water 100 ml @ 100 mls/hr 1X ONCE IV Last administered on 03/08/20at 15:51; Start 03/08/20 at 16:00; Stop 03/08/20 at 16:59; Status DC Sodium Chloride 100 meq/Potassium Chloride 50 meq/ Potassium Phosphate 18 mmol/ Magnesium Sulfate 15 meq/Calcium Gluconate 10 meq/ Multivitamins 10 ml/Chromium/ Copper/Manganese/ Seleni/Zn 1 ml/ Total Parenteral Nutrition/Amino Acids/Dextrose/ Fat Emulsion Intravenous 1,920 ml @ 80 mls/hr TPN CONT IV Last administered on 03/09/20at 22:00; Start 03/09/20 at 22:00; Stop 03/10/20 at 21:59; Status DC Sodium Phosphate 15 mmol/Sodium Chloride 255 ml @ 63.75 mls/ hr 1X ONCE IV Last administered on 03/10/20at 08:45; Start 03/10/20 at 09:00; Stop 03/10/20 at 12:59; Status DC Sodium Chloride 100 meq/Sodium Phosphate 15 mmol/ Potassium Chloride 50 meq/ Potassium Phosphate 18 mmol/ Magnesium Sulfate 15 meq/Calcium Gluconate 10 meq/ Multivitamins 10 ml/Chromium/ Copper/Manganese/ Seleni/Zn 1 ml/ Total Parenteral Nutrition/Amino Acids/Dextrose/ Fat Emulsion Intravenous 1,920 ml @ 80 mls/hr TPN CONT IV Last administered on 03/10/20at 21:41; Start 03/10/20 at 22:00; Stop 03/11/20 at 21:59; Status DC Sodium Phosphate 15 mmol/Sodium Chloride 255 ml @ 63.75 mls/ hr 1X ONCE IV Last administered on 03/11/20at 12:00; Start 03/11/20 at 10:00; Stop 03/11/20 at 13:59; Status DC Sodium Chloride 100 meq/Sodium Phosphate 15 mmol/ Potassium Chloride 50 meq/ Potassium Phosphate 18 mmol/ Magnesium Sulfate 15 meq/Calcium Gluconate 10 meq/ Multivitamins 10 ml/Chromium/ Copper/Manganese/ Seleni/Zn 1 ml/ Total Parenteral Nutrition/Amino Acids/Dextrose/ Fat Emulsion Intravenous 1,920 ml @ 80 mls/hr TPN CONT IV Last administered on 03/11/20at 21:52; Start 03/11/20 at 22:00; Stop 03/12/20 at 21:59; Status DC Dexmedetomidine HCl 400 mcg/ Sodium Chloride 100 ml @ 0 mls/hr CONT PRN IV SEE COMMENTS Last administered on 03/15/20at 02:04; Start 03/11/20 at 10:00; Stop 03/18/20 at 07:50; Status DC Sodium Chloride 500 ml @ 500 mls/hr 1X PRN PRN IV SEE COMMENTS; Start 03/11/20 at 10:00; Stop 03/19/20 at 09:54; Status DC Atropine Sulfate (ATROPINE 0.5mg SYRINGE) 0.5 mg PRN Q5MIN PRN IV SEE COMMENTS; Start 03/11/20 at 10:00; Stop 03/19/20 at 09:53; Status DC Calcium Gluconate (Calcium Gluconate) 1,000 mg 1X ONCE IVP Last administered on 03/11/20at 12:35; Start 03/11/20 at 12:30; Stop 03/11/20 at 12:31; Status DC Sodium Chloride 80 meq/Sodium Phosphate 15 mmol/ Potassium Chloride 50 meq/ Potassium Phosphate 15 mmol/ Magnesium Sulfate 15 meq/Calcium Gluconate 10 meq/ Multivitamins 10 ml/Chromium/ Copper/Manganese/ Seleni/Zn 1 ml/ Total Parenteral Nutrition/Amino Acids/Dextrose/ Fat Emulsion Intravenous 1,920 ml @ 80 mls/hr TPN CONT IV Last administered on 03/12/20at 22:06; Start 03/12/20 at 22:00; Stop 03/13/20 at 21:59; Status DC Metoprolol Tartrate (Lopressor Vial) 2.5 mg Q6HRS IVP Last administered on 03/14/20at 08:50; Start 03/12/20 at 12:00; Stop 03/14/20 at 11:24; Status DC Albuterol Sulfate (Ventolin Neb Soln) 2.5 mg 1X ONCE NEB Last administered on 03/13/20at 00:00; Start 03/13/20 at 00:00; Stop 03/13/20 at 00:01; Status DC Sodium Chloride 80 meq/Sodium Phosphate 15 mmol/ Potassium Chloride 50 meq/ Potassium Phosphate 15 mmol/ Magnesium Sulfate 15 meq/Calcium Gluconate 10 meq/ Multivitamins 10 ml/Chromium/ Copper/Manganese/ Seleni/Zn 1 ml/ Total Parenteral Nutrition/Amino Acids/Dextrose/ Fat Emulsion Intravenous 1,920 ml @ 80 mls/hr TPN CONT IV Last administered on 03/13/20at 22:01; Start 03/13/20 at 22:00; Stop 03/14/20 at 21:59; Status DC Albuterol/ Ipratropium (Duoneb) 3 ml RTQID NEB Last administered on 03/17/20at 07:58; Start 03/13/20 at 12:00; Stop 03/17/20 at 11:51; Status DC Sodium Chloride 80 meq/Sodium Phosphate 15 mmol/ Potassium Chloride 50 meq/ Potassium Phosphate 15 mmol/ Magnesium Sulfate 15 meq/Calcium Gluconate 10 meq/ Multivitamins 10 ml/Chromium/ Copper/Manganese/ Seleni/Zn 1 ml/ Total Parenteral Nutrition/Amino Acids/Dextrose/ Fat Emulsion Intravenous 1,920 ml @ 80 mls/hr TPN CONT IV Last administered on 03/14/20at 21:54; Start 03/14/20 at 22:00; Stop 03/15/20 at 21:59; Status DC Metoprolol Tartrate (Lopressor Vial) 5 mg Q6HRS IVP Last administered on 03/14/20at 18:25; Start 03/14/20 at 12:00; Stop 03/15/20 at 14:17; Status DC Hydralazine HCl (Apresoline Inj) 10 mg PRN Q4HRS PRN IVP ELEVATED BP, SEE C OMMENTS; Start 03/14/20 at 11:30 Sodium Chloride 80 meq/Sodium Phosphate 15 mmol/ Potassium Chloride 50 meq/ Potassium Phosphate 15 mmol/ Magnesium Sulfate 15 meq/Calcium Gluconate 10 meq/ Multivitamins 10 ml/Chromium/ Copper/Manganese/ Seleni/Zn 1 ml/ Total Parenteral Nutrition/Amino Acids/Dextrose/ Fat Emulsion Intravenous 1,920 ml @ 80 mls/hr TPN CONT IV Last administered on 03/15/20at 22:10; Start 03/15/20 at 22:00; Stop 03/16/20 at 21:59; Status DC Metoprolol Tartrate (Lopressor Vial) 2.5 mg Q6HRS IVP Last administered on 03/16/20at 17:18; Start 03/15/20 at 18:00; Stop 03/16/20 at 17:45; Status DC Albumin Human 500 ml @ 125 mls/hr 1X ONCE IV Last administered on 03/16/20at 10:14; Start 03/16/20 at 09:15; Stop 03/16/20 at 13:14; Status DC Furosemide (Lasix) 40 mg 1X ONCE IVP Last administered on 03/16/20at 12:17; Start 03/16/20 at 09:15; Stop 03/16/20 at 09:16; Status DC Sodium Chloride 80 meq/Sodium Phosphate 15 mmol/ Potassium Chloride 50 meq/ Potassium Phosphate 15 mmol/ Magnesium Sulfate 15 meq/Calcium Gluconate 10 meq/ Multivitamins 10 ml/Chromium/ Copper/Manganese/ Seleni/Zn 1 ml/ Total Parenteral Nutrition/Amino Acids/Dextrose/ Fat Emulsion Intravenous 1,920 ml @ 80 mls/hr TPN CONT IV Last administered on 03/16/20at 22:11; Start 03/16/20 at 22:00; Stop 03/17/20 at 21:59; Status DC Metoprolol Tartrate (Lopressor) 12.5 mg Q6HRS PO Last administered on 03/18/20at 12:40; Start 03/16/20 at 18:00; Stop 03/18/20 at 17:30; Status DC Metoprolol Tartrate (Lopressor) 12.5 mg Q6HRS PO ; Start 03/16/20 at 18:00; Status UNV Metoprolol Tartrate (Lopressor Vial) 5 mg PRN Q6HRS PRN IVP HYPERTENSION Last administered on 03/18/20at 03:18; Start 03/17/20 at 02:00 Albumin Human 500 ml @ 125 mls/hr 1X ONCE IV Last administered on 03/17/20at 08:59; Start 03/17/20 at 08:30; Stop 03/17/20 at 12:29; Status DC Vitamin A/Vitamin D (Vitamin A & D Ointment) 1 yury PRN Q1HR PRN TP SKIN PROTECTION; Start 03/17/20 at 10:15 Sodium Chloride 80 meq/Sodium Phosphate 15 mmol/ Potassium Chloride 50 meq/ Potassium Phosphate 15 mmol/ Magnesium Sulfate 15 meq/Calcium Gluconate 10 meq/ Multivitamins 10 ml/Chromium/ Copper/Manganese/ Seleni/Zn 1 ml/ Total Parenteral Nutrition/Amino Acids/Dextrose/ Fat Emulsion Intravenous 1,920 ml @ 80 mls/hr TPN CONT IV Last administered on 03/17/20at 22:01; Start 03/17/20 at 22:00; Stop 03/18/20 at 21:59; Status DC Ipratropium Stanley (Atrovent) 0.5 mg RTQID NEB Last administered on 03/18/20at 20:12; Start 03/17/20 at 12:00; Stop 03/18/20 at 21:43; Status DC Digoxin (Lanoxin) 500 mcg 1X ONCE IV Last administered on 03/17/20at 12:54; Start 03/17/20 at 12:45; Stop 03/17/20 at 12:48; Status DC Sodium Chloride 500 ml @ 500 mls/hr 1X ONCE IV Last administered on 03/17/20at 12:53; Start 03/17/20 at 12:45; Stop 03/17/20 at 13:44; Status DC Digoxin (Lanoxin) 500 mcg 1X ONCE IV Last administered on 03/18/20 07:11; Start 03/18/20 at 07:15; Stop 03/18/20 at 07:16; Status DC Sodium Chloride 500 ml @ 500 mls/hr 1X ONCE IV Last administered on 03/18/20at 08:24; Start 03/18/20 at 07:15; Stop 03/18/20 at 08:14; Status DC Nystatin (Mycostatin) 1 yury BID TP Last administered on 03/20/20at 08:50; Start 03/18/20 at 21:00 Sodium Chloride 80 meq/Sodium Phosphate 15 mmol/ Potassium Chloride 50 meq/ Potassium Phosphate 15 mmol/ Magnesium Sulfate 15 meq/Calcium Gluconate 10 meq/ Multivitamins 10 ml/Chromium/ Copper/Manganese/ Seleni/Zn 1 ml/ Total Parenteral Nutrition/Amino Acids/Dextrose/ Fat Emulsion Intravenous 1,920 ml @ 80 mls/hr TPN CONT IV Last administered on 03/18/20at 21:04; Start 03/18/20 at 22:00; Stop 03/19/20 at 21:59; Status DC Metoprolol Tartrate (Lopressor) 25 mg BID PO Last administered on 03/20/20at 08:50; Start 03/18/20 at 21:00 Ipratropium Stanley (Atrovent) 0.5 mg TID NEB Last administered on 03/20/20at 11:58; Start 03/19/20 at 09:00 Sodium Chloride 80 meq/Sodium Phosphate 15 mmol/ Potassium Chloride 50 meq/ Potassium Phosphate 15 mmol/ Magnesium Sulfate 15 meq/Calcium Gluconate 10 meq/ Multivitamins 10 ml/Chromium/ Copper/Manganese/ Seleni/Zn 1 ml/ Total Parenteral Nutrition/Amino Acids/Dextrose/ Fat Emulsion Intravenous 1,800 ml @ 75 mls/hr TPN CONT IV Last administered on 03/19/20at 21:34; Start 03/19/20 at 22:00; Stop 03/20/20 at 21:59 Pantoprazole Sodium (Protonix) 40 mg DAILYAC PO Last administered on 03/20/20at 08:49; Start 03/20/20 at 07:30 Risperidone (RisperDAL) 1 mg QHS PO Last administered on 03/19/20at 21:40; Start 03/19/20 at 21:00 Acetaminophen/ Hydrocodone Bitart (Lortab 5/325) 1 tab PRN Q3HRS PRN PO PAIN Last administered on 03/19/20at 23:10; Start 03/19/20 at 22:45 Sodium Chloride 80 meq/Sodium Phosphate 15 mmol/ Potassium Chloride 50 meq/ Potassium Phosphate 15 mmol/ Magnesium Sulfate 15 meq/Calcium Gluconate 10 meq/ Multivitamins 10 ml/Chromium/ Copper/Manganese/ Seleni/Zn 1 ml/ Total Parenteral Nutrition/Amino Acids/Dextrose/ Fat Emulsion Intravenous 1,800 ml @ 75 mls/hr TPN CONT IV ; Start 03/20/20 at 22:00; Stop 03/21/20 at 21:59 Active Scripts Active Reported Flomax (Tamsulosin Hcl) 0.4 Mg Cap.er.24h 1 Cap PO QHS Vitals/I & O Vital Sign - Last 24 Hours 03/19/20 03/19/20 03/19/20 03/19/20 15:00 19:07 19:46 20:00 Temp 98.1 98.0 98.1 98.0 Pulse 110 107 Resp 18 16 B/P (MAP) 108/71 (83) 110/72 (85) Pulse Ox 97 97 97 O2 Delivery Room Air Room Air Room Air Room Air 03/19/20 03/19/20 03/20/20 03/20/20 21:41 22:00 03:32 07:00 Temp 98.2 98.0 97.9 98.2 98.0 97.9 Pulse 107 104 94 102 Resp 16 16 18 B/P (MAP) 110/72 102/65 (77) 97/58 (71) 106/68 (81) Pulse Ox 95 97 99 O2 Delivery Room Air Room Air Room Air 03/20/20 03/20/20 03/20/20 03/20/20 07:32 08:00 08:50 11:00 Temp 98.0 98.0 Pulse 95 94 Resp 18 B/P (MAP) 106/68 101/63 (76) Pulse Ox 97 O2 Delivery Room Air Room Air Room Air 03/20/20 11:59 Pulse Ox 98 O2 Delivery Room Air Intake and Output 03/19/20 03/19/20 03/20/20 15:00 23:00 07:00 Intake Total 0 ml Output Total 1120 ml 1680 ml 2375 ml Balance -1120 ml -1680 ml -2375 ml Nutrition Consultation Dietary Evaluation: Recommendations by RD: Dietary education by RD, Increase Calorie Intake, Protein supplementation, PPN/TPN Comments: Continue w/full liquid diet, advance as able per GI/surgery to goal of regular diet REC Ensure (vanilla) w/dinner trays Continue w/TPN per current order, if pt continues to eat >75% meals and tolerate, would reocmmend consideration of stopping TPN Expected Outcomes/Goals: New goal 03/15: TPN infusion to meet >75% est needs - goal adjusted New goal 03/19: TPN + PO intake to meet >75% est needs Malnutrition Findings: Food and Nutrition Intake (Mod: <75% est energy req 7days Weight Status: Appropriate Justicifation of Admission Dx: Justifications for Admission: Justification of Admission Dx: Yes MELLISA BONNER MD Mar 20, 2020 13:17
[2020-03-20 15:00] VITALS: BP 101/65
[2020-03-20 19:44] VITALS: BP 101/62
[2020-03-20] MEDS: TAMSULOSIN 0.4 MG CAP.ER.24H. PO SCH (21:15)
[2020-03-20] MEDS: risperiDONE 1 MG TABLET. PO SCH (21:16)
[2020-03-20] MEDS ORDERED: TOTAL PARENTERAL NUTRITION IV SCH (22:00)
[2020-03-20] MEDS ORDERED: DEXTROSE 70% IV SCH (22:00)
[2020-03-20] MEDS ORDERED: [UNRECOGNIZED DRUG - OTHER] IV SCH (22:00)
[2020-03-20] MEDS ORDERED: AMINO ACID IV SCH (22:00)
[2020-03-20 23:22] VITALS: BP 103/63
[2020-03-21 03:58] VITALS: BP 113/69
[2020-03-21 07:00] VITALS: BP 114/69
[2020-03-21] MEDS: IPRATROPIUM BROMIDE 0.5 MG/2.5 ML NEBU. NEB SCH ×2 (07:58→12:26)
[2020-03-21] MEDS: NYSTATIN 100,000 UNIT/GM TOPICAL CREAM 15GM TUBE. TP SCH (08:39)
[2020-03-21] MEDS: ENOXAPARIN 40 MG/0.4 ML SYRINGE. SQ SCH (08:39)
[2020-03-21] MEDS: PANTOPRAZOLE 40 MG TABLET.DR. PO SCH (08:39)
[2020-03-21] MEDS: METOPROLOL TART IMMED RELEASE 25 MG TABLET. PO SCH (08:39)
--- NOTE | 2020-03-21 09:12 | PDOC ---
Subjective: Subjective: Doing okay. "They offered but communion but I said I'd rather have a donut so I ate a donut." Objective: Vital Signs: Vital Signs Date Time Temp Pulse Resp B/P (MAP) Pulse Ox O2 Delivery O2 Flow Rate FiO2 03/21/20 08:39 91 114/69 03/21/20 07:58 98 Room Air 03/21/20 07:00 97.8 18 97.8 PE: GEN: NAD, resting quietly - breakfast tray untouched LUNGS: CTAB HEART: RRR ABD: soft, non-tender NEURO/PSYCH: A & O 3 A/P: Colon cancer s/p resection -- Improving, continue support. ?onc recs Justicifation of Admission Dx: Justifications for Admission: Justification of Admission Dx: Yes LONG RIOS Mar 21, 2020 09:11
--- NOTE | 2020-03-21 09:27 | PDOC ---
PULMONARY PROGRESS NOTES Subjective Patient extubated 03/15 Patient feels better no increasing shortness of air took 4 steps in the room today Vitals Vital Signs Date Time Temp Pulse Resp B/P (MAP) Pulse Ox O2 Delivery O2 Flow Rate FiO2 03/21/20 08:39 91 114/69 03/21/20 07:58 98 Room Air 03/21/20 07:00 97.8 18 97.8 ROS: No Nausea, No Chest Pain, No Increase Cough General: Alert HEENT: Other (nc at perrl nose thrat clear neck no lad no thyromegaly) Lungs: Clear Cardiovascular: S1, S2, Other Abdomen: Soft, Other (Dressing in place, jace drain ) Neuro Exam: Alert Extremities: No Edema Skin: Warm Medications Active Scripts Medications Dose Route/Sig Max Daily Dose Days Date Category Flomax (Tamsulosin Hcl) 0.4 Mg Cap.er.24h 1 Cap PO QHS 03/02/20 Reported Comments CXR reviewed IMPRESSION: 1. Stable left basilar opacities and small left pleural effusion. Impression . IMPRESSION: 1. Acute hypoxemic respiratory failure, expected status post surgical intervention for colonic mass. Status post extubation 03/15 on ra 2. Obstructing colonic cancer. 3. History of prostate cancer. 4. Severe protein malnutrition present upon admission. 5. Tobacco dependent. 6. Chronic obstructive pulmonary disease. 7. SARS-CoV-2 negative. 8. Cholelithiasis. 9. Hyponatremia. 10. Protein malnutrition, present upon admission. 11. Benign prostatic hypertrophy. 12. S/p open right colon resection, partial resection of duodenum, placement of duodenostomy tube, cholecystectomy, ghost ileostomy 13. Acute blood loss anemia 14. Respiratory alkalosis 15. Hypocalcemia-- correct calcium WNL 16. 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 - Lymphovascular tumor invasion present. - Metastatic carcinoma involving 1 of 14 mesocolic lymph nodes. - Tumor involvement of radial margin of posterior aspect of cecum and proximal ascending colon. - Proximal (distal ileum) and distal (ascending colon) margins of resection negative for tumor. - Hypertrophy of muscular wall of appendix with focal serosal lymphovascular tumor invasion of proximal appendix. - Omentum negative for tumor. - Serosal adhesions of colon and appendix, focal. . B. Gallbladder, open cholecystectomy: - Polypoid cholesterolosis. - Chronic cholecystitis. . C. Tissue designated "right upper quadrant": - Segments of tumor showing invasive colorectal adenocarcinoma with prominent mucinous component, moderately differentiated. . (JPM:kaila; 03/07/2020) . Surgical Pathology Cancer Case Summary Protocol posting date: February 2017 COLON AND RECTUM: Resection, Including Transanal Disk Excision of Rectal Neoplasms Procedure ___ Right colectomy Tumor Site ___ Cecum ___ Ileocecal valve ___ Right (ascending) colon Tumor Size Greatest dimension: 12.5 cm Macroscopic Tumor Perforation ___ Present Histologic Type ___ Adenocarcinoma with prominent mucinous component and with focal poorly differentiated areas Histologic Grade ___ Other: Moderately to focally poorly differentiated Tumor Extension ___ Tumor invades through the muscularis propria into pericolorectal tissue Margins Proximal Margin ___ Uninvolved by invasive carcinoma + Distance of tumor from margin: 5.4 cm Distal Margin ___ Uninvolved by invasive carcinoma + Distance of tumor from margin: 11.2 cm ___ Involved by invasive carcinoma Radial or Mesenteric Margin ___ Involved by invasive carcinoma Lymphovascular Invasion ___ Present Perineural Invasion ___ Not identified + Type of Polyp in Which Invasive Carcinoma Arose + ___ Tubulovillous adenoma Tumor Deposits ___ Not identified Regional Lymph Nodes Number of Lymph Nodes Involved: 1 Number of Lymph Nodes Examined: 14 Pathologic Stage Classification (pTNM, AJCC 8th Edition) (Note M) Primary Tumor (pT) ___ pT4b: Tumor directly invades or adheres to adjacent organs or structures Regional Lymph Nodes (pN) ___ pN1: One to three regional lymph nodes are positive (tumor in lymph nodes measuring > or = 0.2 mm), or any number of tumor deposits are present and all identifiable lymph nodes are negative + Additional Pathologic Findings + ___ None identified (JPM:ady 03/08/2020) MBR 03/08/2020 0951 Local Plan . To discharge to LTAC Multiple drains were removed Has a ileostomy tube in place that will eventually come out, case discussed with surgery , needs to follow-up with Dr. Goss once discharged Respiratory status compensated continue the same Advance diet, case discussed with speech DOTTIE WILBURN MD Mar 21, 2020 09:26
--- NOTE | 2020-03-21 09:57 | PDOC ---
SURGICAL PROGRESS NOTE Subjective eating some pain managed Vital Signs Vital Signs Date Time Temp Pulse Resp B/P (MAP) Pulse Ox O2 Delivery O2 Flow Rate FiO2 03/21/20 08:39 91 114/69 03/21/20 07:58 98 Room Air 03/21/20 07:00 97.8 18 97.8 I&O Intake and Output 03/21/20 07:00 Intake Total 330 ml Output Total 4430 ml Balance -4100 ml Intake Oral 330 ml Output Urine Total 4250 ml Drainage Total 180 ml # Bowel Movements 2 General: Alert, Oriented X3, Cooperative Abdomen: Soft, Other (jace serosang, d tube in place, ghost in place) Problem List Problems Medical Problems: (1) Anemia Status: Acute (2) Colonic mass Status: Acute (3) Fatigue Status: Acute (4) Hypocalcemia Status: Acute (5) Nausea & vomiting Status: Acute (6) SBO (small bowel obstruction) Status: Acute Assessment/Plan will remove drains DC planning remove finn Justicifation of Admission Dx: Justifications for Admission: Justification of Admission Dx: Yes ISAAC LUEVANO AIR MOVING TECHNICIAN Mar 21, 2020 09:57
[2020-03-21 11:00] VITALS: BP 109/69
--- NOTE | 2020-03-21 11:17 | NUR ---
SS following up with discharge planning. SS reviewed pt chart and discussed with pt RN. Pt is accepted at [facility], ; fax [phone]. Pt is currently on room air. Surgery assessed today and reported that they will remove drains and will remove the finn. Pt is currently on TPN. PT/OT recommended senior living unit. SS will continue to follow for discharge planning.
--- NOTE | 2020-03-21 11:38 | NUR ---
SS following up with discharge planning. SS notified that surgery cleared pt for LTACH. SS phoned and faxed clinical updates to [facility]. Physician notified for discharge orders. SS will continue to follow for discharge planning.
--- NOTE | 2020-03-21 12:14 | PDOC ---
DELANO MORAES SHOT MAN 03/21/20 1214: CARDIO Progress Notes Date and Time Date of Service 03/21/20 Time of Evaluation 1210 Subjective Subjective: No Chest Pain, No shortness of breath, No Palpitations, No Dizziness Vitals Vitals Vital Signs Date Time Temp Pulse Resp B/P (MAP) Pulse Ox O2 Delivery O2 Flow Rate FiO2 03/21/20 08:39 91 114/69 03/21/20 08:00 Room Air 03/21/20 07:58 98 03/21/20 07:00 97.8 18 97.8 Weight Weight [ ] Input and Output Intake and Output Intake and Output 03/21/20 06:59 Intake Total 330 ml Output Total 4430 ml Balance -4100 ml Intake Oral 330 ml Output Urine Total 4250 ml Drainage Total 180 ml # Bowel Movements 2 Microbiology Micro Microbiology 03/02/20 Urine Culture - Final, Complete Review of Systems Constitutional: yes: weakness, alert, oriented Ears/Nose/Throat: Yes: no symptom reported Eyes: Yes: no symptom reported Pulmonary: Yes no symptom reported Cardiovascular: Yes edema Gastrointestional: Yes: no symptom reported Genitourinary: Yes: no symptom reported Musculoskeletal: Yes: no symptom reported Skin: Yes no symptom reported Psychiatric/Neurological: Yes: no symptom reported Endocrine: Yes: no symptom reported Physical Exam HEENT: Neck Supple W Full Motion Chest: Symmetric LUNGS: Other (diminished bases ) Heart: RRR (SR) Abdomen: Other (soft ) Extremities: Other (trace bilateral LE edema ) Neurology: alert, follow commands, confused (intermittent ) Assessment Assessment 1. Obstructive colonic mass; s/p open colon resection, cholecystectomy. Path c/w metastatic adenocarcinoma 2. Acute respiratory failure, post-operative. S/p extubation this am 3. Arrhythmia; PSVT, reactive tachycardia. Echo with preserved LV systolic function 4. Acute blood loss anemia, s/p transfusion. Hgb stable 5. Hypertension; low normotensive 6. Hypocalcemia 7. Protein calorie malnutrition, anasarca; on TPN 8. H/o prostate CA, BPH 9. Tobaccoism Recommendations No new CV issues Continue low-dose metoprolol for rate control Supportive care Okay to transfer to LTAC from CV standpoint. Justicifation of Admission Dx: Justifications for Admission: Justification of Admission Dx: Yes JAMMIE HARDING MD 03/22/20 1152: CARDIO Progress Notes Plan Plan Late entry for 03/21/2010 Pt. seen and examined. Agree with above CORD SPLICER note. DELANO MORAES APRN Mar 21, 2020 12:14 JAMMIE HARDING MD Mar 22, 2020 11:52
--- NOTE | 2020-03-21 12:20 | NUR ---
SS following up with discharge planning. Discharge orders received for [facility], ; fax [phone]. SS phoned and faxed discharge orders to [facility]. Pt will discharge today and go to [facility] at 1630 via [facility] ambulance, . Pt, pt's RN, and pt's brother notified.
--- NOTE | 2020-03-21 12:50 | SNU/HH DC ---
DISCHARGE ORDERS DISCHARGE INFORMATION: DISCHARGE DATE: Mar 21, 2020 FINAL DIAGNOSIS Problems Medical Problems: (1) Anemia Status: Acute (2) Colonic mass Status: Acute (3) Fatigue Status: Acute (4) Hypocalcemia Status: Acute (5) Nausea & vomiting Status: Acute (6) SBO (small bowel obstruction) Status: Acute CONDITION ON DISCHARGE: Stable ASSISTED: SNF STAY <30 DAYS: Yes LTAC: ADMIT TO LTAC: Yes POST DISCHARGE ORDERS: ACTIVITY ORDERS: Activity as tolerated WEIGHT BEARING STATUS: As tolerated DIET AFTER DISCHARGE: Cardiac TREATMENT/EQUIPMENT ORDERS: Physical Therapy For: Evalulation/Treatment Occupational Therapy For: Evaluation/Treatment DISCHARGE MEDICATIONS: Home Meds Reported Medications Tamsulosin Hcl (FLOMAX) 0.4 Mg Cap.er.24h, 1 CAP PO QHS for prostate, #30 CAP 11 Refills 03/02/20 MELLISA BONNER MD Mar 21, 2020 12:50
--- NOTE | 2020-03-21 13:05 | PDOC3 ---
Discharge Summary Visit Information Date of Admission: Mar 02, 2020 Date of Discharge: Mar 21, 2020 Final Diagnosis Problems Medical Problems: (1) Anemia Status: Acute (2) Colonic mass Status: Acute (3) Fatigue Status: Acute (4) Hypocalcemia Status: Acute (5) Nausea & vomiting Status: Acute (6) SBO (small bowel obstruction) Status: Acute Brief Hospital Course Allergies Allergies Coded Allergies Type Severity Reaction Last Updated Verified aspirin Allergy Severe "SWELLING" 03/02/20 Yes Vital Signs GENERAL: No apparent distress. Alert and oriented. HEENT: Head normocephalic, atraumatic. NECK: Supple LUNGS: Clear to auscultation. HEART: RRR, S1, S2 present, pulses intact ABDOMEN: Soft, positive bowel sounds. EXTREMITIES: No cyanosis or edema. NEUROLOGIC: Normal speech, normal tone PSYCHIATRIC: Normal affect, normal mood. SKIN: No ulceration. Vital Signs Date Time Temp Pulse Resp B/P (MAP) Pulse Ox O2 Delivery O2 Flow Rate FiO2 03/21/20 11:00 97.9 91 18 109/69 (82) 98 Room Air 97.9 Brief Hospital Course Mr Claudio is a 69 yo CM hx of prostate cancer s/p radiation, HTN, prediabetes now off meds who presents with vomiting fatigue diarrhea weight loss and decreased appetite for 1 month. He went to see his PCP because over the past week he had sudden onset lower extremity edema, patient had labs drawn as outpatient and called by PCP to go to the hospital for a blood transfusion and treatment for CHF. No history of CHF. On ROS he just notes his bones feel heavy. He also notes over the past 2 months sometimes he will choke on food and vomited up. His last bowel movement was 2 days ago and it was diarrhea. He has not been able to eat very well. He just feels tired. He stopped smoking over 25 years ago and he only did smoke cigars at that time. With regard to his prostate cancer he states that he had 43 radiation treatments and had a PET scan at the end of 2018 and was told he is in remission. He has never had a colonoscopy. in ED patient found to have hb of 9.8. na 130. noted to be tachy with HR 110. Patient lives with 101 year old mom. His mother has history of stage III colon cancer diagnosed at age 76. His brother has history of prostate cancer, father of lung cancer. A/P: Acute respiratory failure, post-operative. S/p intubation. ? PNA Small bowel dilatation/obstruction suspicious for primary colon cancer 10.5cm mass with surrounding lymph nodes concerning for metastatic disease 10.5 cm colonic mass. Colonic mass abuts the right hepatic lobe inferior margin as well as the duodenum and anterior right kidney (extending through or deforming Gerota's fascia), suspicious for primary colon cancer. Prominent associated lymph nodes are seen, possibly metastatic Obstructing right colon cancer Dialated Appendix fatty liver dz Gallstones Microcytic Anemia Alkaline Phosphatemia Hyponatremia Mild Leukocytosis Tachycardia H/o prostate cancer in remission Severe protein calorie malnutrition LE edema - BNP of 350, no cardiac history and no symptoms of CHF. This is unlikely to be cardiac related at all. Likely likely lymphatic obstruction due to abdominal mass. Hyponatremia - likely due to poor PO intake HYPOTENSION, POSSIBLE SEPSIS, resolved SVT - Arrhythmia; Brief period of SVT. Otherwise, has been maintaining SR/ST Acute blood loss anemia, s/p transfusion Hypocalcemia Acute encephalopathy, resolved pen dyllan removed at time of discharge will need follow up with oncology regarding cancer will attempt to remove finn prior to discharge continue BB for elevated HR patient getting TPN, tolerating soft diet. has PICC line in place for TPN cleared for discharge to LTAC for ongoing care, PT hard copy of med rec in chart Discharge Information Condition at Discharge: Improved Follow Up: Weeks Disposition/Orders: D/C to Another Facility Scheduled Tamsulosin Hcl (Flomax) 0.4 Mg Cap.er.24h, 1 CAP PO QHS for prostate, #30 Ref 11 (Reported) Entered as Reported by: Pollo Mejia on 03/02/202129 Last Action: Edited on 03/02/202315 by Pollo Mejia Justicifation of Admission Dx: Justifications for Admission: Justification of Admission Dx: Yes MELLISA BONNER MD Mar 21, 2020 13:05
[2020-03-21 15:00] VITALS: BP 105/70
--- NOTE | 2020-03-21 16:56 | NUR ---
Discharge Note: FABIANO HELLER Discharge instructions and discharge home medications reviewed with Other facility and a copy given. All questions have been answered and understanding verbalized. The following instructions and handouts were given: drains, wound care Discontinued lines and drains: Booth catheter removed. Pt discharged with PICC line in place to continue TPN at other facility Patient discharged to [facility] with [facility] via EMS.
== END 2020-03-21 16:45 | DRG 326 ==
LOC: ER 14:50 → 2 SOUTH 18:34 → OBSVTOIN 20:30 → 1 WEST ICU 03-05 14:29 → 2 NORTH 03-18 07:30
PROVIDERS: ADMIT Internal Medicine; ATTEND Internal Medicine
PROC: 0DTF0ZZ Resection of Right Large Intestine, Open Approach (ICD-10-PCS; 2020-03-05)
PROC: 0D1B0Z4 Bypass Ileum to Cutaneous, Open Approach (ICD-10-PCS; 2020-03-05)
PROC: 5A1955Z Respiratory Ventilation, Greater than 96 Consecutive Hours (ICD-10-PCS; 2020-03-05)
PROC: BF101ZZ Fluoroscopy of Bile Ducts using Low Osmolar Contrast (ICD-10-PCS; 2020-03-05)
PROC: 30233N1 Transfusion of Nonautologous Red Blood Cells into Peripheral Vein, Percutaneous Approach (ICD-10-PCS; 2020-03-05)
PROC: 0DB90ZZ Excision of Duodenum, Open Approach (ICD-10-PCS; principal; 2020-03-05 11:00)
PROC: 0FT40ZZ Resection of Gallbladder, Open Approach (ICD-10-PCS; 2020-03-05 11:00)
PROC: 5A09357 Assistance with Respiratory Ventilation, Less than 24 Consecutive Hours, Continuous Positive Airway Pressure (ICD-10-PCS; 2020-03-07)
PROC: 02HV33Z Insertion of Infusion Device into Superior Vena Cava, Percutaneous Approach (ICD-10-PCS; 2020-03-08)
DX: C18.8 Malignant neoplasm of overlapping sites of colon (principal); A41.9 Sepsis, unspecified organism; E43 Unspecified severe protein-calorie malnutrition; J96.01 Acute respiratory failure with hypoxia; R65.21 Severe sepsis with septic shock; G92 Toxic encephalopathy; I47.1 Supraventricular tachycardia; K56.7 Ileus, unspecified; I50.30 Unspecified diastolic (congestive) heart failure; K63.0 Abscess of intestine; C96.9 Malignant neoplasm of lymphoid, hematopoietic and related tissue, unspecified; K80.10 Calculus of gallbladder with chronic cholecystitis without obstruction; K56.609 Unspecified intestinal obstruction, unspecified as to partial versus complete obstruction; C79.9 Secondary malignant neoplasm of unspecified site; J44.0 Chronic obstructive pulmonary disease with (acute) lower respiratory infection; E87.1 Hypo-osmolality and hyponatremia; G72.81 Critical illness myopathy; F05 Delirium due to known physiological condition; D62 Acute posthemorrhagic anemia; E87.3 Alkalosis; I48.0 Paroxysmal atrial fibrillation; K31.89 Other diseases of stomach and duodenum; I11.0 Hypertensive heart disease with heart failure; R73.03 Prediabetes; N40.0 Benign prostatic hyperplasia without lower urinary tract symptoms; E86.0 Dehydration; K66.0 Peritoneal adhesions (postprocedural) (postinfection); C61 Malignant neoplasm of prostate; F17.210 Nicotine dependence, cigarettes, uncomplicated; E83.51 Hypocalcemia; E83.39 Other disorders of phosphorus metabolism; K76.0 Fatty (change of) liver, not elsewhere classified; Z20.828 Contact with and (suspected) exposure to other viral communicable diseases; Z92.3 Personal history of irradiation; Z85.46 Personal history of malignant neoplasm of prostate; Z80.1 Family history of malignant neoplasm of trachea, bronchus and lung; Z80.0 Family history of malignant neoplasm of digestive organs; Z79.899 Other long term (current) drug therapy; Z68.21 Body mass index [BMI] 21.0-21.9, adult; Z88.6 Allergy status to analgesic agent
CPT/HCPCS: 36415; 36569; 36600; 70450; 71045; 71260; 74018; 74177; 74300; 80048; 80053; 81001; 82040; 82310; 82378; 82436; 82607; 82803; 82805; 82962; 83540; 83550; 83690; 83735; 83880; 83930; 83935; 84100; 84133; 84300; 84443; 84478; 84484; 85007; 85014; 85018; 85025; 85027; 85610; 85730; 86850; 86900; 86901; 86920; 87086; 88304; 88305; 88309; 93005; 93306; 94002; 94003; 94640; 96361; 96374; 96375; 99285; A7015; C9113; G0378; G0379; J0330; J0610; J0694; J1100; J1160; J1650; J1940; J2250; J2370; J2405; J2543; J2704; J3010; J3475; J3480; J3490; J7030; J7040; J7050; J7060; J7120; P9016; P9045; Q9967; 92526-GN; 92610-GN; 97110-GO; 97110-GP; 97530-GO; 97530-GP; 97535-GO; J7613; J7644; U0003-CS

== ENCOUNTER 2020-09-20 01:30 | Emergency (ER) | payer MEDICARE ==
[~2020-09-20] VITALS: Ht 190.5 cm; Wt 74.3 kg
[~2020-09-20 01:30] MED LIST: TAMS0.4C97 PO
--- NOTE | 2020-09-20 01:57 | PHYS DOC ---
Past Medical History Past Medical History: Anemia, Other Additional Past Medical Histor: PROSTATE CANCER, LOW IRON Past Surgical History: No Surgical History Smoking Status: Former Smoker Alcohol Use: Rarely General Adult EDM: Chief Complaint: BLOOD IN URINE HPI: HPI: Patient is a 80-year-old male who presents via POV for hematuria. Onset was approximately 3 hours prior to arrival. Patient with known history of prostate cancer in remission and bladder issues presents after having unsuccessful self- catheterization attempt. Patient reports being hospitalized at our facility this past summer and ever since, has been using Booth catheters under the guidance of outpatient urology since discharge. Reports he had Booth catheter removed yesterday, saw urologist in office today and was instructed to attempt weaning off of Booth catheter use by self cathing. Patient successfully self cathed himself while in urologist office and was discharged home with continued instructions to do so. Nonetheless, patient went to self cath himself approximately 2200 hrs. and "used a different catheter that they gave me and tried for about 3 minutes to get it in but I could not and my penis just started bleeding". States he has been having gross hematuria ever since. Has feelings of a distended bladder and dysuria with ongoing bright red blood loss and clot formation. States he has had brisk blood loss that has been ongoing since onset prompting him to come into our ER for evaluation. No fever, COVID-19 contact, lightheadedness or dizziness, no falls or trauma, chest pain, shortness of breath, abdominal pain, no medication changes Review of Systems: Review of Systems: Fourteen body systems of review of systems have been reviewed. See HPI for pertinent positives and negative responses, other vickers all other systems are negative, non-pertinent or non-contributory Heart Score: HEART Score for Chest Pain: HEART Score for Chest Pain Response (Comments) Value History Slighlty/Non-Suspicious 0 ECG Normal 0 Age > 65 2 Risk Factors >3 Risk Factors or Hx CAD 2 Troponin < Normal Limit 0 Total 4 Risk Factors: Risk Factors: DM, Current or recent (<one month) smoker, HTN, HLP, family history of CAD, obesity. Risk Scores: Score 0 - 3: 2.5% MACE over next 6 weeks - Discharge Home Score 4 - 6: 20.3% MACE over next 6 weeks - Admit for Clinical Observation Score 7 - 10: 72.7% MACE over next 6 weeks - Early Invasive Strategies Current Medications: Current Medications Medications (Trade) Dose Ordered Sig/Faisal Start Time Stop Time Status Last Admin Dose Admin Sodium Chloride 1,000 ml @ 0 mls/hr 1X ONCE 09/20/20 02:00 09/20/20 02:01 DC 09/20/20 02:00 999 MLS/HR Allergies: Allergies: Allergies Coded Allergies Type Severity Reaction Last Updated Verified aspirin Allergy Severe "SWELLING" 03/02/20 Yes Physical Exam: PE: Constitutional: Well developed, well nourished, no acute distress, non-toxic appearance. Patient is aggravated on arrival HENT: Normocephalic, atraumatic, bilateral external ears normal, oropharynx moist, no oral exudates, nose normal. Eyes: PERRLA, EOMI, conjunctiva normal, no discharge. Neck: Normal range of motion, no tenderness, supple, no stridor. Cardiovascular: Heart rate tachycardic, sinus rhythm, no rubs or gallops Lungs & Thorax: Bilateral breath sounds clear to auscultation Abdomen: Bowel sounds normal, soft, mild suprapubic tenderness, no masses, no pulsatile masses. Nonsurgical abdomen, no peritoneal signs : Patient testicles descended bilaterally without any palpable or visual abnormalities. Patient has circumcised penis with blood clots present at distal tip with disposable underwear on with moderate amount of clotted bright red blood present Skin: Warm, dry, no erythema, no rash. Back: No tenderness, no CVA tenderness. Extremities: No tenderness, no cyanosis, no clubbing, ROM intact, no edema. Neurologic: Alert and oriented X 3, grossly normal motor & sensory function, no focal deficits noted. Psychologic: Anxious affect, aggravated mood Current Patient Data: Labs: Laboratory Tests Test 09/20/20 01:53 White Blood Count 8.2 x10^3/uL Red Blood Count 4.34 x10^6/uL Hemoglobin 12.0 g/dL Hematocrit 36.1 % Mean Corpuscular Volume 83 fL Mean Corpuscular Hemoglobin 28 pg Mean Corpuscular Hemoglobin Concent 33 g/dL Red Cell Distribution Width 19.4 % Platelet Count 246 x10^3/uL Neutrophils (%) (Auto) 78 % Lymphocytes (%) (Auto) 10 % Monocytes (%) (Auto) 10 % Eosinophils (%) (Auto) 1 % Basophils (%) (Auto) 1 % Neutrophils # (Auto) 6.4 x10^3/uL Lymphocytes # (Auto) 0.8 x10^3/uL Monocytes # (Auto) 0.8 x10^3/uL Eosinophils # (Auto) 0.1 x10^3/uL Basophils # (Auto) 0.0 x10^3/uL Sodium Level 140 mmol/L Potassium Level 4.2 mmol/L Chloride Level 104 mmol/L Carbon Dioxide Level 22 mmol/L Anion Gap 14 Blood Urea Nitrogen 22 mg/dL Creatinine 1.3 mg/dL Estimated GFR (Cockcroft-Gault) 54.3 Glucose Level 137 mg/dL Calcium Level 9.1 mg/dL Current Medications Medications (Trade) Dose Ordered Sig/Faisal Route PRN Reason Start Time Stop Time Status Last Admin Dose Admin Sodium Chloride 1,000 ml @ 0 mls/hr 1X ONCE IV 09/20/20 02:00 09/20/20 02:01 DC 09/20/20 02:00 999 MLS/HR Vital Signs: Vital Signs Date Time Temp Pulse Resp B/P (MAP) Pulse Ox O2 Delivery O2 Flow Rate FiO2 09/20/20 02:40 96 20 158/89 (112) Room Air 09/20/20 02:19 108 20 166/107 (126) Room Air 09/20/20 02:10 110 20 199/122 (147) Room Air 09/20/20 01:30 97.9 121 20 196/115 (142) 98 Room Air 97.9 EKG: EKG: EKG ordered and interpreted by myself at 0301 hrs. as sinus rhythm at 85 bpm, unremarkable intervals, left axis deviation, no acute ischemic findings, no STEM I Radiology/Procedures: Radiology/Procedures: [] Course & Med Decision Making: Course & Med Decision Making Pertinent Labs and Imaging studies reviewed. (See chart for details) Two way Booth catheter placed and irrigated with significant improvement in removal of blood clots and residual blood. No ongoing blood loss observed. Discussed most likely cause of presenting symptoms trauma related to home self- catheterization ER work-up reviewed. Patient states he is feeling great and ready to be discharged home. I did discuss potential for hospitalization for observation and monitoring of blood levels but patient declined. He has good access to urologist and can be seen within upcoming 24 to 48 hours which I feel is appropriate I discussed need to be reevaluated for his hematuria. Patient to leave Booth catheter in and have pulled at outpatient urology visit. I also advised patient to discuss utility for repeat laboratory analysis to recheck hemoglobin levels if there is a concern for ongoing blood loss Strict return precautions were discussed with good understanding by patient, all questions and concerns addressed prior to ER departure Alexei Disclaimer: Alexei Disclaimer: This electronic medical record was generated, in whole or in part, using a voice recognition dictation system. Departure Departure Impression: Primary Impression: Hematuria Additional Impression: Anemia Disposition: 01 DC HOME SELF CARE/HOMELESS Condition: IMPROVED Referrals: UNKNOWN PCP NAME (PCP) Patient Instructions: Booth Catheter Care, Adult, Hematuria, Adult Additional Instructions: As discussed prior to ER departure, please call your urologist first thing after ER departure to discuss need for repeat evaluation in upcoming 24 to 48 hours after ER discharge. You will be leaving our ER with Booth catheter in place, you will do need to discuss ongoing need for this with your urologist. If any concerning signs or symptoms present prior to outpatient follow-up please do not hesitate to come back for repeat evaluation. It was a pleasure to take care of you and I wish you the best going forward MICKI COTTER DO Sep 20, 2020 01:57
[2020-09-20] MEDS ORDERED: IV NORMAL SALINE 1000ML BAG 1,000 ML IV ONE (02:00)
[2020-09-20 02:28] LABS: BASO % 1 % (0-3); EOS # 0.1 x10^3/uL (0.0-0.7); EOS % 1 % (0-3); HEMATOCRIT 36.1 % (39.0-53.0); LYMPH # 0.8 x10^3/uL (1.0-4.8); LYMPH % 10 % (24-48); MEAN CORPUSCULAR HEMOGLOBIN 28 pg (25-35); MEAN CORPUSCULAR HGB CONC 33 g/dL (31-37); MEAN CORPUSCULAR VOLUME 83 fL (79-100); MONO # 0.8 x10^3/uL (0.0-1.1); MONO % 10 % (0-9); NEUT # 6.4 x10^3/uL (1.8-7.7); NEUT % 78 % (31-73); PLATELET COUNT 246 x10^3/uL (140-400); RED BLOOD COUNT 4.34 x10^6/uL (4.30-5.70); RED CELL DISTRIBUTION WIDTH 19.4 % (11.5-14.5); WHITE BLOOD COUNT 8.2 x10^3/uL (4.0-11.0)
[2020-09-20 02:38] LABS: CALCIUM 9.1 mg/dL (8.5-10.1); CREATININE 1.3 mg/dL (0.7-1.3); GFR 54.3; POTASSIUM 4.2 mmol/L (3.5-5.1)
[2020-09-20 03:40] VITALS: BP 143/87
[2020-09-20 03:40] LABS: PROTHROMBIN TIME PATIENT 13.4 SEC (11.7-14.0)
== END 2020-09-20 04:18 | disposition home or self-care (01) ==
LOC: ER 01:30
DX: R31.9 Hematuria, unspecified (principal); D64.9 Anemia, unspecified; Z87.891 Personal history of nicotine dependence; Z88.6 Allergy status to analgesic agent
CPT/HCPCS: 36415; 80048; 85025; 85610; 85730; 93005; 99285; J7030

== ENCOUNTER 2020-09-21 16:20 | Emergency (ER) | payer MEDICARE ==
[~2020-09-21] VITALS: Ht 182.9 cm; Wt 77.0 kg
[2020-09-21 19:13] VITALS: BP 173/108
--- NOTE | 2020-09-21 19:41 | PHYS DOC ---
Past Medical History Past Medical History: Hypertension, Other Additional Past Medical Histor: PROSTATE CANCER, COLON MASS Past Surgical History: Other Smoking Status: Never Smoker Alcohol Use: Occasionally General Adult EDM: Chief Complaint: URINE CATHETER PROBLEM HPI: HPI: Patient is a 70-year-old male presenting for Booth catheter problems. Was seen at our facility 48 hours ago, had issues self cathing and ultimately had a Booth catheter replaced and irrigated with significant relief in symptomology and discharged home. He saw urology clinic at [facility] on , no symptoms reported and he was advised to follow-up as needed. Patient subsequently reported to their clinic that again today for evaluation and had Booth catheter replaced. He states he has not had any urine drainage into Booth catheter since placement and has had urges to urinate with urine leaking around Booth catheter currently placed. Denies any overt pain but is troubled because urine is leaking around Booth catheter tube. No fever, no COVID-19 concerns. Patient wanting Booth catheter to be removed today Review of Systems: Review of Systems: Fourteen body systems of review of systems have been reviewed. See HPI for pertinent positives and negative responses, other vickers all other systems are negative, non-pertinent or non-contributory Heart Score: HEART Score for Chest Pain: HEART Score for Chest Pain Response (Comments) Value History Slighlty/Non-Suspicious 0 Age > 65 2 Risk Factors 1 or 2 Risk Factors 1 Total 3 Risk Factors: Risk Factors: DM, Current or recent (<one month) smoker, HTN, HLP, family history of CAD, obesity. Risk Scores: Score 0 - 3: 2.5% MACE over next 6 weeks - Discharge Home Score 4 - 6: 20.3% MACE over next 6 weeks - Admit for Clinical Observation Score 7 - 10: 72.7% MACE over next 6 weeks - Early Invasive Strategies Allergies: Allergies: Allergies Coded Allergies Type Severity Reaction Last Updated Verified aspirin Allergy Severe "SWELLING" 03/02/20 Yes Physical Exam: PE: Constitutional: Well developed, well nourished, no acute distress, non-toxic appearance. HENT: Normocephalic, atraumatic, bilateral external ears normal, oropharynx moist, no oral exudates, nose normal. Eyes: PERRLA, EOMI, conjunctiva normal, no discharge. Neck: Normal range of motion, no tenderness, supple, no stridor. Cardiovascular: Heart rate regular per monitor Lungs & Thorax: No respiratory distress or accessory muscle use, bilateral chest rise Abdomen: Abdomen soft, non-tender, bowel sounds present in all quadrants, no guarding or rebound, nonacute abdomen. Skin: Warm, dry, no erythema, no rash. Back: No tenderness, no CVA tenderness. Extremities: No tenderness, no cyanosis, no clubbing, ROM intact, no edema. Neurologic: Alert and oriented X 3, grossly normal motor & sensory function, no focal deficits noted. Psychologic: Affect normal, judgement normal, mood normal. Current Patient Data: Vital Signs: Vital Signs Date Time Temp Pulse Resp B/P (MAP) Pulse Ox O2 Delivery O2 Flow Rate FiO2 09/21/20 19:13 98.3 109 16 173/108 (129) 99 Room Air 98.3 EKG: EKG: [] Radiology/Procedures: Radiology/Procedures: [] Course & Med Decision Making: Course & Med Decision Making I discussed most likely diagnosis of Booth catheter problems, based on history and physical exam it appears Booth catheter is not fully in place. I reviewed the risks and benefits of replacing the Booth catheter with an additional 1, I reviewed increased risk of infection etc. Patient who is been dependent on Booth catheter is was advised by urologist earlier this week to transition off of Booth catheters and self cath instead an attempt to regain bladder function. Patient has urge to pee and so, joint decision was made to remove Booth cath eter and discharge home with continued attempts to urinate and self cath as needed. Patient has been dealing with on-call urology nursing staff this past week, has not seen actual urologist. Reports he is seeing the actual urologist on Thursday and will review recent Booth catheter problems suffered in the past 72 hours. Strict return precautions were also discussed at length with good understanding by patient. Patient voiced understanding and agreement with the plan. Patient knows to come back for repeat evaluation if concerning signs or symptoms present prior to outpatient follow-up. Hemodynamically stable, ambulatory and well-appearing at time of disposition. Dragon Disclaimer: Dragon Disclaimer: This electronic medical record was generated, in whole or in part, using a voice recognition dictation system. Departure Departure Impression: Primary Impression: Problem with urinary catheter Disposition: 01 DC HOME SELF CARE/HOMELESS Condition: GOOD Referrals: UNKNOWN PCP NAME (PCP) Patient Instructions: Booth Catheter Care, Adult Additional Instructions: As discussed prior to ER departure, please follow-up with urologist as currently scheduled this upcoming Thursday for evaluation. Your Booth catheter was removed today. You were previously taught and instructed to self cath and attempts to wean from being dependent on Booth catheters. I would advise you do this as needed until seen by urology clinic at [facility]. Any concerning signs or symptoms present prior to outpatient follow-up please do not hesitate to come back for repeat evaluation. It was a pleasure to take care of you and I wish you the best going forward MICKI COTTER DO Sep 21, 2020 19:41
== END 2020-09-21 20:25 | disposition home or self-care (01) ==
LOC: ER 16:20
DX: T83.098A Other mechanical complication of other urinary catheter, initial encounter (principal); I10 Essential (primary) hypertension; Z85.46 Personal history of malignant neoplasm of prostate; Z98.890 Other specified postprocedural states; Z88.8 Allergy status to other drugs, medicaments and biological substances
CPT/HCPCS: 99281

== ENCOUNTER → 2021-07-05 | Outpatient (CLI) | payer MEDICARE ==
[~2021-07-05] MED LIST changes: +CONTRAST GIVEN. MC PRN; +IOHEXOL 240 MG/ML 50ML VIAL. PO ONE; +IOHEXOL 300 MG/ML 100ML VIAL. IV ONE
[2021-07-05 10:05] LABS: CREATININE 0.9 mg/dL (0.7-1.3); GFR 82.9
--- NOTE | 2021-07-05 15:31 | RAD ---
CT CHEST+ABD+PELVIS W History: Weight loss, anorexia, colon cancer. Comparison: CT chest, abdomen and pelvis 03/03/2020. Technique: CT of the chest, abdomen and pelvis with oral and intravenous contrast. Findings: Chest: Pulmonary arteries: No large or central PE. Attenuation of the distal pulmonary arteries is limited b y phase of contrast enhancement. Aorta and great vessels: No aneurysm of the aortic arch or thoracic aorta is seen. Mild atherosclerot ic calcification. Heart: The heart is normal in size. There is no pericardial effusion. Moderate coronary artery calcif ication. Thyroid: No significant abnormalities. Mediastinum and mitesh: Calcified left hilar lymph nodes. No enlarged adenopathy. Esophagus: The visualized esophagus is normal. Airways, Lungs, Pleura: Airways are clear. Small right pleural effusion. Suspect right posterior pleu ral-based mass measuring approximately 2.4 x 1.6 cm, adjacent to the right posterior 10th rib (axial series 2 image 55), new from comparison. Posterior left lower lobe calcified granuloma. Noncalcified left lower lobe nodule measures 7 mm diameter, not significantly changed. Soft tissue and osseous: Bilateral gynecomastia. Abdomen/Pelvis: General abdomen: No ascites. No free air. Liver : There is a new hypodense lesion inferior segment 6 measuring approximately 4.1 x 2.1 cm. Patricio tional new 1 cm hypodensity in segment 8. Gallbladder/Biliary Tree: Status post cholecystectomy. No intrahepatic or extrahepatic biliary ductal dilatation. Pancreas: The conglomerate right upper quadrant bowel mass directly extends into the pancreatic head. Spleen: Normal in size and attenuation. Adrenal glands: Normal. Kidneys: No hydronephrosis or hydroureter. There is direct extension of the conglomerate right upper quadrant bowel mass into the inferior pole of the right kidney. Gastrointestinal: Mild gastric wall thickening. There is direct invasion of the descending duodenum f rom the right upper quadrant bowel mass which appears to involve duodenum, small bowel and ascending colonic loops. There is no evidence of obstruction with contrast passing to the splenic flexure the m ass measures approximately 10.8 x 6.3 x 11.0 cm. This abuts the inferior aspect of the main portal ve in. Lymph nodes: Numerous enlarged mesenteric lymph nodes, mildly progressive from comparison. Vessels: Unremarkable. Pelvic Organs: Mildly enlarged prostate. The bladder is unremarkable. Soft tissues: Unremarkable. Bones: No acute or aggressive lesions. Impression: 1. Progression of conglomerate bowel mass in the right upper quadrant which appears to involve duode num, ileum and colonic bowel loops as well as direct extension to the inferior pole right kidney and pancreatic head. No evidence of bowel obstruction. 2. New hepatic metastatic disease and posterior right lower chest pleural metastatic mass with suspe cted malignant small right pleural effusion. ------ Exposure: One or more of the following individualized dose reduction techniques were utilized for thi s examination: 1. Automated exposure control 2. Adjustment of the mA and/or kV according to patient size 3. Use of iterative reconstruction technique. Electronically signed by: Abhi Addison MD (07/05/2021 3:29 PM) [facility]
== END ==
LOC: CT 09:58
PROVIDERS: ATTEND Internal Medicine
DX: C78.7 Secondary malignant neoplasm of liver and intrahepatic bile duct (principal); C76.1 Malignant neoplasm of thorax; C18.9 Malignant neoplasm of colon, unspecified; I25.10 Atherosclerotic heart disease of native coronary artery without angina pectoris; J90 Pleural effusion, not elsewhere classified; N62 Hypertrophy of breast; J84.10 Pulmonary fibrosis, unspecified; K76.9 Liver disease, unspecified; N40.0 Benign prostatic hyperplasia without lower urinary tract symptoms; R63.4 Abnormal weight loss; R63.0 Anorexia; R10.9 Unspecified abdominal pain; Z90.49 Acquired absence of other specified parts of digestive tract
CPT/HCPCS: 36415; 71260; 74177; 82565; 84520; Q9967